=== PATIENT | male | born 1950 | race Caucasian/White ===

== ENCOUNTER → 2017-08-22 11:47 | Outpatient (CLI) | payer SELFPAY | PROVIDERS: Family Provider Family Medicine; PCP Family Medicine; Visit Provider Specialist | DX: Z53.9 Procedure and treatment not carried out, unspecified reason (principal) ==

== ENCOUNTER → 2017-09-02 09:23 | Outpatient (CLI) | payer MEDICAID, MEDICARE, SELFPAY ==
[2017-09-02 10:03] LABS: Pathologist Comment May follow
[2017-09-02 10:14] LABS: Absolute Lymphocyte Count 2.59 X10^3/ul (0.83-4.51); Absolute Neutrophil Count 2.8 X10^3/uL (2.0-7.7); Basophil# 0.05 X10^3/uL; Basophil% 0.8 % (0-1); Eosinophil# 0.55 X10^3/uL; Eosinophils% 8.4 % (0-5); Hematocrit 38.5 % (40-54); Lymphocyte # 2.59 X10^3/ul (4.0); Lymphocyte % 39.7 % (19-41); Mean Corp Hgb Conc 33.8 g/gl (32-36); Mean Corpuscular Volume 91.7 fL (80-94); Mean Platelet Vol. 12.1 fl (6.2-12.0); Monocyte# 0.49 X10^3/uL; Monocyte% 7.5 % (0-10); Neutrophil # 2.84 X10^3/uL (2.7-7.7); Neutrophil % 43.4 % (47-70); Platelet Count 223 K/mm3 (150-450); RBC Distribution Width CV 13.5 % (11.6-14.6); RBC Distribution Width SD 44.4 fl (35.1-43.9); White Blood Count 6.5 K/mm3 (4.4-11.0)
[2017-09-02 10:18] LABS: POSITIVE COUNT NO; POSITIVE DIFFERENTIAL NO; POSITIVE MORPHOLOGY NO
[2017-09-02 10:19] LABS: Erythrocyte Sedimentation Rate 5 mm/hr (0-20)
[2017-09-02 10:21] LABS: RBC /Synovial Fluid 0.089 10^6/uL (0); Synovial Fld Mononuclear WBC % 42.4 %; Synovial Fld Polynuclear WBC # 0.181 10^3/ul; Synovial Fld Polynuclear WBC % 57.6 %
[2017-09-02 10:32] LABS: CRP < 2.90 mg/L (0.0-3.0)
[2017-09-02 10:41] LABS: AUTO B FLUID DILUENT BKGD CT WBC <0.1 RBC <0.01 (W<.1,R<.01); Source- Body Fluid SYNOVIAL
[2017-09-02 10:43] LABS: Appearance /Synovial Fluid Cloudy (CLEAR); Color / Synovial Fluid Red (Pale Yellow)
[2017-09-02 11:49] LABS: Body Fluid QC Type(s) BF1Q,BF2Q
[2017-09-02 11:50] LABS: CRYSTALS, BODY FLUID Other, see comment
[2017-09-02 12:43] LABS: Lymph 34 %; Monocyte /Synovial Fluid 16 %; Neutrophil 45 % (0-25); Other Cell /Synovial Fluid 5 %
[2017-09-05 14:05] LABS: Pathologist Review Reviewed
== END ==
PROVIDERS: Family Provider Family Medicine; PCP Family Medicine; Visit Provider Specialist
DX: M25.562 Pain in left knee (principal); E11.9 Type 2 diabetes mellitus without complications; Z96.652 Presence of left artificial knee joint
CPT/HCPCS: 36415; 83036; 85025; 85652; 86140; 87070; 87075; 87102; 87205; 87206; 89050; 89051; 89060

== ENCOUNTER → 2017-12-20 16:48 | Outpatient (CLI) | payer MEDICARE, MEDICAID, SELFPAY ==
[2017-12-20 17:27] LABS: Absolute Lymphocyte Count 3.06 X10^3/ul (0.83-4.51); Absolute Neutrophil Count 3.4 X10^3/uL (2.0-7.7); Basophil# 0.04 X10^3/uL; Basophil% 0.5 % (0-1); Eosinophil# 0.43 X10^3/uL; Eosinophils% 5.8 % (0-5); Hematocrit 37.2 % (40-54); Hemoglobin 12.4 g/dl (13.0-16.5); Lymphocyte # 3.06 X10^3/ul (4.0); Lymphocyte % 41.1 % (19-41); Mean Corp Hgb Conc 33.3 g/gl (32-36); Mean Corpuscular Hgb 30.6 pg (27.0-32.0); Mean Corpuscular Volume 91.9 fL (80-94); Mean Platelet Vol. 12.1 fl (6.2-12.0); Monocyte# 0.49 X10^3/uL; Monocyte% 6.6 % (0-10); Neutrophil % 45.7 % (47-70); Platelet Count 214 K/mm3 (150-450); RBC Distribution Width CV 13.4 % (11.6-14.6); RBC Distribution Width SD 44.7 fl (35.1-43.9); Red Blood Count 4.05 M/mm3 (4.6-6.2); White Blood Count 7.4 K/mm3 (4.4-11.0)
[2017-12-20 17:31] LABS: POSITIVE COUNT NO; POSITIVE DIFFERENTIAL NO; POSITIVE MORPHOLOGY NO
[2017-12-20 18:15] LABS: Hemoglobin A1c 7.2 % (4.2-6.3)
== END ==
PROVIDERS: Family Provider Family Medicine; PCP Family Medicine; Visit Provider Specialist
DX: Z96.652 Presence of left artificial knee joint (principal)
CPT/HCPCS: 36415; 83036; 85025

== ENCOUNTER 2018-02-13 09:31 | Inpatient (IN) | payer MEDICARE, MEDICAID, SELFPAY ==
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
[2018-01-24 09:07] VITALS: BP 131/72; PULSE 63; RESP 16; TEMP 36.7; O2SAT 95; BMI 38.8
[2018-01-24 10:37] LABS: Absolute Lymphocyte Count 2.16 X10^3/ul (0.83-4.51); Absolute Neutrophil Count 2.6 X10^3/uL (2.0-7.7); Basophil# 0.04 X10^3/uL; Basophil% 0.7 % (0-1); Eosinophil# 0.38 X10^3/uL; Eosinophils% 6.9 % (0-5); Hematocrit 39.7 % (40-54); Lymphocyte # 2.16 X10^3/ul (4.0); Lymphocyte % 39.4 % (19-41); Mean Corp Hgb Conc 32.7 g/gl (32-36); Mean Corpuscular Hgb 30.2 pg (27.0-32.0); Mean Corpuscular Volume 92.1 fL (80-94); Mean Platelet Vol. 12.4 fl (6.2-12.0); Monocyte# 0.28 X10^3/uL; Monocyte% 5.1 % (0-10); Neutrophil # 2.61 X10^3/uL (2.7-7.7); Neutrophil % 47.7 % (47-70); Platelet Count 228 K/mm3 (150-450); RBC Distribution Width CV 13.5 % (11.6-14.6); RBC Distribution Width SD 44.6 fl (35.1-43.9); Red Blood Count 4.31 M/mm3 (4.6-6.2); White Blood Count 5.5 K/mm3 (4.4-11.0)
[2018-01-24 10:38] LABS: POSITIVE COUNT NO; POSITIVE DIFFERENTIAL NO; POSITIVE MORPHOLOGY NO
[2018-01-24 10:54] LABS: Hemoglobin A1c 6.9 % (4.2-6.3)
[2018-01-24 11:02] LABS: Anion Gap 7 (5-15); BUN 18 mg/dL (7-18); BUN/Creat Ratio 17.5 RATIO (10-20); Calcium,Total 9.1 mg/dL (8.5-10.1); Chloride 106 mmol/L (98-107); Creatinine, Serum 1.03 mg/dL (0.70-1.30); EST Glomerular Filtration Rate 76 mL/min (>60); Est Glom Filt Rate - Afr Amer 92 mL/min (>60); Estimated Creatinine Clearance 65.07 ml/min; Glucose 123 mg/dL (74-106); Potassium 4.4 mmol/L (3.5-5.1); Sodium Level 140 mmol/L (136-145)
--- NOTE | 2018-02-08 13:47 | CASEMGMT ---
Called placed to patient to discuss discharge needs after upcoming surgery, spoke with patient's . Patient plans to return home after surgery, family members will assist. Patient has not set up outpatient physical therapy yet, would prefer to have home health therapy. unsure of which provider patient would like for PT, informed that [facility] has home health with PT available. Patient has a walker but is is unsure if it's usable. There are grab bars in the shower, shower seat can be put in walk-in shower, toilet riser. There is a bedroom and bathroom on the 1st level of the home. There are no steps into the home. Informed that RN-CM will likely follow up with patient after surgery. Alissa García LPN Clinical Support
[2018-02-13] VITALS (11 sets, daily range): BP systolic 125–152; BP diastolic 55–80; PULSE 56–72; RESP 16–19; TEMP 36.3–37.2; O2SAT 93–98; BMI 38.8
[2018-02-13] MEDS: Acetaminophen 500 MG Tablet 1000 MG PO ×2 (10:28→21:54)
[2018-02-13 10:50] LABS: Bedside Glucose 148 mg/dL (70-110)
[2018-02-13] MEDS: Lactated Ringers 1,000 ML 999 ML IV (16:15)
--- NOTE | 2018-02-13 16:15 | RAD_ITS ---
STUDY: X-RAY - LEFT KNEE REASON FOR EXAM: Male, 67 years old. Postop knee replacement. TECHNIQUE: 2 view(s) of the knee. COMPARISON: None. Findings: There is a recent total knee arthroplasty. The femoral and tibial components appear in satisfactory position. There has been patellar resurfacing. There is a suprapatellar drain. The visualized femoral, tibial, and fibular shafts are unremarkable. RAD/Knee 1 or 2 Views IMPRESSION: Satisfactory appearance of a total knee arthroplasty. Electronically Signed: Nick Garcia MD at 19:07 EST , Service support ,
[2018-02-13 16:45] LABS: Bedside Glucose 272 mg/dL (70-110)
[2018-02-13] MEDS: Insulin Lispro 100 UNIT/ML INSULN.PEN SC ×2 (17:09→21:58)
--- NOTE | 2018-02-13 17:34 | OP.PCM_ITS ---
Report of Operation Date of Procedure: 02/13/18 Pre-Operative Diagnosis: Failed left total knee replacement, implant loosening aseptic Post-Operative Diagnosis: Failed left total knee replacement, implant loosening aseptic Surgery/Procedure Performed:: Revision left total knee replacement all femoral and tibial components Description of Surgical Findings:: Stable knee with good patella tracking. director industrial relations: Cesar Simpson Type of Anesthesia:: Spinal Anesthesiologist: Clarence Peters Special Medications: 2 g Ancef, 1 g TXA at incision, 1 g TXA closure, 10 mg Decadron, joint cocktail (5 mg Duramorph, 30 mL of 0.5% Ropivicaine, 1000 units of epinephrine, 30 mg of Toradol) Specimen's removed: 3 separate specimens were taken to microbiology Drains: Lateral Hemovac drain Estimated Blood Loss (mL): 125 mL Fluids Replaced: 2300 mL crystalloid Description of Procedure: 67 yo m history of L TKA presents with painful left total knee replacement. X- rays were consistent with aseptic loosening. Lab work was also consistent with aseptic loosening. Risks and benefits of the procedure were discussed with the patient including but not limited to blood loss, DVTs, PEs, neurovascular damage, infection, general risk of anesthesia including loss of life. Demonstrated understanding and was able to sign informed consent. On the date of procedure patient's L lower extremity was marked in the preoperative area. The patient was then taken back to the operating room where the patient was placed on the table in the supine position. All bony prominences were identified a well-padded. Anesthesia assumed control of the C-spine and airway and remained controlled throughout the remainder of the procedure. A tourniquet was placed on the operative thigh and the leg was prepped in a sterile fashion. The surgeon then scrubbed at this time .Upon reentering the room left lower extremity was draped in a standard orthopedic fashion. A timeout was then called and everyone agreed upon the side, the site, the procedure to be performed, patient's identity and antibiotics given. A midline skin incision was made and sharp dissection was taken down through skin subcutaneous tissue and fat. Appropriate flaps were elevated medially and laterally. His arthrotomy was identified and the standard medial parapatellar incision was made along with a quadriceps snip proximally and the patella was subluxed laterally. The standard deep MCL release was done. At this point an aggressive synovectomy commenced. Our attention was first turned towards the subpatellar pouch and all suspicious synovium and tissues were debrided. We then directed our attention towards medial lateral gutters were these tissues were aggressively debrided. Knee was then flexed up the polyethylene was removed. Once polyethylene was removed we did the remainder of the synovium in the medial and lateral gutters and along the lateral structures and MCL. We then debrided the posterior knee. Knee was flexed up and culture was taken from the femoral notch. And also there was a membrane beneath the tibial baseplate that was removed and sent for culture. He had completed our synovectomy and were happy with the joint. We then proceeded to the implant removal phase. The knee was flexed up and TPS saw and flexible osteotomes were used to break up the residual bone cement interface of the femoral component. This was done first lead and medially. After was done medially bone tamp was used to remove the implant from the end of the bone with minimal bone loss. Attention was then directed towards the tibia. Knee was first placed in e xtension and further releases were done in order to help deliver the tibia from the wound. Once the tibia was adequately delivered from the wound TPS saw and osteotome were used to break up the bone cement interface. Once this was done brought osteotomes were placed underneath the implant in a stacked fashion and the implant was removed from the wound. It should be noted that behind both implants were membranes consistent with aseptic loosening these were sent for culture as well. Should also be noted that both implants were loose upon removal. Also should be noted that when we opened up the arthrotomy the patella implant fell out of the wound literally. Knee was then placed in extension our attention was directed towards the patella. The patella was a thin wafer of bone this was also confirmed on the radiographs. At this point we do not feel would be appropriate to revise the patella and we elected to leave the patella and resurfaced. However patella did have a large lateral facet and on radiographs and upon direct visualization wrapped around the lateral femur. This facet was debrided along with a lateral release. Once this was done our attention was directed back towards the wound. We first reamed the femoral and tibial canals after removing cement. The femoral canal was reamed to 14 mm for 150 mm stem. Tibia was reamed to 15 mm and intramedullary reamer was left into place. We used the intramedullary cutting guide in order to make a cleanup cut on the top of the tibia. Cleanup cut was made perpendicular to the intramedullary reaming guide. Once this was done we then reamed for a size D cone. Once this was completed the trial cone was placed in the trial tibial baseplate was put in the appropriate rotation. Once the appropriate rotation was obtained the trial tibial baseplate was pinned into place and the keel punch was used to punch the keel. Once this was done the trial tibial implant was was impacted into place and our attention was directed towards the femur. Based on the previous implant size a size 6 trial tibial cutting guide was selected. Medial epicondyle was palpated and marked. The implant was impacted into place in order to set the joint line based on the trial cutting guide laser line. Trial cutting guide was then pinned into place and we trialed the polyethylene in place. This helped place the trial cutting guide in the appropriate rotation. With the knee flexed at 90 degrees we then pinned a second pin into the trial cutting guide. Once the knee was balanced using the trial cutting guide the distal cleanup cut and posterior cleanup cuts were made for 5 mm augments on all 4 areas. The trial femur was then assembled and impacted into place. With a trial femur in place and trial tibia in place the knee was well balanced with a 13 mm polyethylene. The patella tracked well at this time. Trial implants were removed and final implants were opened. 6 L of normal saline were irrigated throughout the wound and aqua Oswaldo was used to obtain hemostasis. Once the 6 L of low-pressure lavage were irrigated throughout the wound cement was mixed. Cement restrictor was placed in the tibia and the bone ends were dried appropriately. The tibial cone was impacted into place. Once the cement was ready the tibial canal was pressurized and the tibial component was impacted into place and excess cement was removed. Cement was then placed on the backside of the femoral component and the femoral component was impacted into place. Once the excess cement was removed and he was placed into extension. With the knee in extension cement was allowed to cure. After the cement cured tourniquet was let down and hemostasis was obtained. 2 g of TXA were lavaged to the wound for 1 minute. #2 FiberWire was used to repair the top corner of the arthrotomy as well as the quadriceps snip. The remainder of the arthrotomy was closed with #1 Vicryl. The remainder of the wound was closed in a layer rao fashion using #1 vicryl interrupted sutures for the arthrotomy, 2-0 interrupted Vicryl for the subcuticular layer and cait for final skin closure. A sterile compressive dressing was then placed. The patient was then awakened from anesthesia, transferred to the [facility] and transferred to the PACU for recovery. Post op plan Patient will be activity as tolerated with range of motion as tolerated. He is on Xarelto for DVT prophylaxis due to previous DVT. He will follow-up in the office in 2 weeks for a wound check. He will be on doxycycline for 2 weeks so we follow cultures. Grafts/Implants Used: [place] triathlon - Complications None - Admit VTE Documentation VTE Present on Admission: No VTE Mechan Device Prophylaxis: SCD's, Thigh High KARLA Hose VTE Pharm Prophylaxis ordered?: Yes
--- NOTE | 2018-02-13 18:28 | PCM.PROGNOTE ---
Subjective: Pt is a 67 year old male with Pmhx of arthritis, prior left total knee, hx of CAD prior CABG, dementia, prior DVT on xarelto, htn, depression, Dmt2, who underwent a left total knee revision today with Dr. Franklin today. Pt is resting comfortably in bed and appears very pleasant. Currently he has no pain. He had a spinal, left foot is still numb. He has no fevers or chills. He has no abdominal pain or nausea. He has not eaten yet. He is not SOB or coughing, and has no chest pain. - Physical Exam General: Alert, Oriented x3, Cooperative HEENT: Atraumatic, PERRLA, EOMI, Normocephalic Neck: Supple, No JVD, Negative Carotid Bruits Lungs: Clear to auscultation, Normal air movement Cardiovascular: Regular rate, No murmurs Abdomen: Bowel Sounds Present, Soft, Non Tender, Obese Extremities: No edema, Capillary Refill Less than 3 Seconds, - - numbness left foot Skin: No rashes, No breakdown Musculoskeletal: No Tenderness to Palpation of Joints or Extremities Neurological: Cranial nerves II-XII grossly intact Psych/Mental Status: Normal Affect, Appropriate, Alert and oriented to time, place, person, mood and affect Vital Signs Temp Pulse Resp BP Pulse Ox 97.8 F 60 16 143/73 H 93 02/13/18 17:47 02/13/18 17:47 02/13/18 17:47 02/13/18 17:47 02/13/18 17:47 Oxygen Delivery Method Room Air Weight: 248 lb Body Mass Index (BMI) 38.8 Finger Stick Blood Glucose 272 Intake and Output for Last 24 Hours 02/11/18 02/12/18 02/13/18 23:59 23:59 23:59 Intake Total 1800 / 1800 Output Total 150 / 150 Balance 1650 / 1650 Microbiology Past 72 Hours 02/13/18 14:17 Gram Stain - Final Tissue - Knee 02/13/18 14:17 Gram Stain - Final Tissue - Knee 02/13/18 14:17 Gram Stain - Final Tissue - Knee POC Glucose 02/13/18 02/13/18 16:29 10:23 POC Glucose 272 H 148 H Medical Necessity - Tobacco Use Smoking Status: Never smoker Assessment/Plan 1. Left total knee revision post op day #0 - appears to be doing well. Continue care as per ortho. Plan to restart xarelto when ok per surgery. Plan is for Doxy x 2 week. Received perioperative clinda. Cultures taken. Afebrile, no leukocytosis. Not clear why pt is on pletal, possibly hx of PAD - increases risk for bleeding. 2. CAD with prior CABG - last cath 2017 reportedly stable. Continue karl, aspirin, imdur, toprol 3. DMt2 - continue current insulin regiment. A1C 6.9 - fair control. 4. Hx DVT - restart xarelto likely tomorrow 5. Dementia - aricept, seroquel. 7. Depression - seroquel, wellbutrin, prozac. 8. HTN - mildly elevated. Continue current meds. DVT ppx: per ortho Thank you for the opportunity to participate in the care of this patient. This patient was seen by Phi Brunner PA-C under the supervision of Dr. Quezada.
[2018-02-13] MEDS: Lactated Ringers 1,000 ML 125 ML IV (18:38)
[2018-02-13] MEDS: Glucerna Shake 120 ML LIQUID PO (18:46)
[2018-02-13] MEDS: metFORMIN HCl 1,000 MG Tablet 1000 MG PO (18:48)
[2018-02-13] MEDS: Insulin Human 75/25 Kwickpen 30 UNIT SC (18:50)
[2018-02-13 18:55] LABS: Bedside Glucose 307 mg/dL (70-110)
[2018-02-13] MEDS: oxyCODONE 5 MG Tablet PO (20:20)
[2018-02-13 21:45] LABS: Bedside Glucose 303 mg/dL (70-110)
[2018-02-13] MEDS: Donepezil HCl 5 MG Tablet PO (21:52)
[2018-02-13] MEDS: Metoprolol(XL)Succ 25 MG Tablet 12.5 MG PO (21:53)
[2018-02-13] MEDS: FLUoxetine 20 MG Capsule PO (21:53)
[2018-02-13] MEDS: Doxycycline 100 MG CAPSULE PO (21:53)
[2018-02-13] MEDS: Cilostazol 50 MG Tablet PO (21:53)
[2018-02-13] MEDS: Senna/Docusate Sodium 1 Tablet 2 TABLET PO (21:53)
[2018-02-13] MEDS: Gabapentin 300 MG Capsule PO (21:53)
[2018-02-14 01:09] VITALS: BP 118/58; PULSE 61; RESP 16; TEMP 36.7; O2SAT 95
[2018-02-14] MEDS: oxyCODONE 5 MG Tablet PO ×3 (01:10→21:18)
[2018-02-14 02:23] VITALS: BP 114/55; PULSE 64; RESP 16; TEMP 36.6; O2SAT 94
[2018-02-14] MEDS: Acetaminophen 500 MG Tablet 1000 MG PO ×3 (05:33→21:20)
[2018-02-14] MEDS: Gabapentin 300 MG Capsule PO ×3 (05:33→21:20)
[2018-02-14] MEDS: FLUoxetine 20 MG Capsule PO ×3 (05:34→21:20)
[2018-02-14] MEDS: Rivaroxaban 10 MG Tablet PO (05:34)
[2018-02-14] MEDS: Insulin Lispro 100 UNIT/ML INSULN.PEN SC ×2 (06:30→11:33)
[2018-02-14 06:36] LABS: Bedside Glucose 173 mg/dL (70-110)
[2018-02-14 06:40] LABS: Hematocrit 32.6 % (40-54); Hemoglobin 10.6 g/dl (13.0-16.5); Mean Corp Hgb Conc 32.5 g/gl (32-36); Mean Corpuscular Hgb 30.3 pg (27.0-32.0); Mean Corpuscular Volume 93.1 fL (80-94); Mean Platelet Vol. 12.4 fl (6.2-12.0); Platelet Count 176 K/mm3 (150-450); RBC Distribution Width CV 13.4 % (11.6-14.6); RBC Distribution Width SD 44.1 fl (35.1-43.9); White Blood Count 10.7 K/mm3 (4.4-11.0)
[2018-02-14 06:42] LABS: Scan Indicated on CBC? Y/N NO
[2018-02-14 06:58] LABS: Anion Gap 10 (5-15); BUN 23 mg/dL (7-18); BUN/Creat Ratio 20.7 RATIO (10-20); Chloride 102 mmol/L (98-107); Creatinine, Serum 1.11 mg/dL (0.70-1.30); EST Glomerular Filtration Rate 70 mL/min (>60); Est Glom Filt Rate - Afr Amer 85 mL/min (>60); Estimated Creatinine Clearance 60.38 ml/min; Glucose 180 mg/dL (74-106); Potassium 4.3 mmol/L (3.5-5.1); Sodium Level 138 mmol/L (136-145)
--- NOTE | 2018-02-14 07:18 | PCM.PN.ORT ---
Subjective: The patient was sitting in bed upon examination. Patient denies any chest pain, shortness of breath, dizziness, lightheadedness, nausea or vomiting, or calf pain. Pain is controlled on medications. No adverse overnight events. Patient had aseptic loosening from a previous left total knee replacement. Patient is doing well this morning. Patient does have a Hemovac drain in the left knee with 450 mL output since surgery. Objective: Vital signs stable and afebrile. Patient is able to plantarflex and dorsiflex actively. Sensation is intact to light touch to saphenous, sural, superficial and deep peroneal, and tibial distribution. Dressing is clean dry and intact. Hemovac drain in place: Since surgery 450 mL have been drained Negative Homans bilaterally, negative signs and symptoms of DVT. - Physical Exam General: Alert, Oriented x3, Cooperative, No apparent distress Vital Signs Temp Pulse Resp BP Pulse Ox 98 F 64 16 114/55 L 94 02/14/18 02:23 02/14/18 02:23 02/14/18 02:23 02/14/18 02:23 02/14/18 02:23 Oxygen Delivery Method Room Air Weight: 112.491 kg Body Mass Index (BMI) 38.8 Finger Stick Blood Glucose 272 Intake and Output for Last 24 Hours 02/12/18 02/13/18 02/14/18 23:59 23:59 23:59 Intake Total 2757 / 2757 623 / 623 Output Total 875 / 875 150 / 150 Balance 1882 / 1882 473 / 473 Microbiology Past 72 Hours 02/13/18 14:17 Gram Stain - Final Tissue - Knee 02/13/18 14:17 Gram Stain - Final Tissue - Knee 02/13/18 14:17 Gram Stain - Final Tissue - Knee Laboratory Tests Past 24 Hrs 02/14/18 02/14/18 06:14 06:14 WBC 10.7 RBC 3.50 L Hgb 10.6 L Hct 32.6 L MCV 93.1 MCH 30.3 MCHC 32.5 RDW 13.4 RDW Differential 44.1 H Plt Count 176 MPV 12.4 H Sodium 138 Potassium 4.3 Chloride 102 Carbon Dioxide 26.0 Anion Gap 10 BUN 23 H Creatinine 1.11 Estim Creat Clear Calc 60.38 Est GFR (MDRD) Af Amer 85 Est GFR (MDRD) Non-Af 70 BUN/Creatinine Ratio 20.7 H Glucose 180 H Calcium 8.0 L POC Glucose 02/14/18 02/13/18 02/13/18 06:28 21:35 18:44 POC Glucose 173 H 303 H 307 H 02/13/18 02/13/18 16:29 10:23 POC Glucose 272 H 148 H Medical Necessity - Tobacco Use Smoking Status: Never smoker Assessment/Plan 1. S/P revision left total knee arthroplasty femoral and tibial components POD #1 2. Continue Pain Medications: Tylenol and oxycodone 3. DVT Prophylaxis: Xarelto 4. PT/OT: Weightbearing as tolerated with range of motion as tolerated 5. H & H: 10.6/32.6, asymptomatic 6. Encouraged Incentive Spirometry 7. Continue doxycycline while following cultures: Currently on doxycycline. Cultures are pending 8. Continue postoperative medical management per medicine 9. Continue with Hemovac drain: Since surgery there is been 450 mL output, continue monitoring 24-hour output. 10. Disposition: Patient wishes to go home when medically stable and ready for discharge.
[2018-02-14 08:12] VITALS: BP 140/69; PULSE 65; RESP 16; TEMP 36.7; O2SAT 97
[2018-02-14] MEDS: metFORMIN HCl 1,000 MG Tablet 1000 MG PO ×2 (08:26→16:42)
[2018-02-14] MEDS: Multivitamins,Therapeutic Tablet 1 TABLET PO (08:26)
[2018-02-14] MEDS: Aspirin E.C. 81 MG Tablet PO (08:26)
[2018-02-14] MEDS: Glucerna Shake 120 ML LIQUID PO ×2 (08:26→16:42)
[2018-02-14] MEDS: Insulin Human 75/25 Kwickpen 26 UNIT SC (08:27)
[2018-02-14] MEDS: Isosorbide Mononitrate 30 MG Tablet 90 MG PO (11:26)
[2018-02-14] MEDS: Doxycycline 100 MG CAPSULE PO ×2 (11:26→21:19)
[2018-02-14] MEDS: Cilostazol 50 MG Tablet PO ×2 (11:27→21:20)
[2018-02-14] MEDS: Famotidine 20 MG Tablet PO (11:27)
[2018-02-14] MEDS: Senna/Docusate Sodium 1 Tablet 2 TABLET PO ×2 (11:27→21:20)
[2018-02-14] MEDS: QUEtiapine 25 MG Tablet PO (11:28)
[2018-02-14] MEDS: Lisinopril 20 MG Tablet PO (11:28)
[2018-02-14] MEDS: buPROPion (XL) 300 MG TABLET.XL PO (11:28)
--- NOTE | 2018-02-14 11:28 | CASEMGMT ---
JULIO APONTE INITIAL ASSESSMENT D/C PLAN: Home w/C PT/OT. Face to Face with patient for initial transition planning/care coordination assessment. JULIO APONTE introduced self and role at [facility]. Care providers, pharmacy, and demographics verified. PCP: Derek Dinero Pharmacy: [facility] Retail on day of discharge only. Insurance: MCR A & B, Medicaid Prescription Benefit: Yes Living Will/HPOA: Does not have either. and pt state they are interested in further information and with talking with [facility] to fill forms out. AD information sheets given to pt. Referral made to [facility]. [facility]NO[facility]: Living Arrangements: Lives with . States there are no steps to enter the home. 1st floor set up. Transportation: Pt is [place] and does not drive. Hire drivers. DME: Has walk-in shower, shower chair, toilet riser, cane, grab bars, and building tech. states pt does need a walker and denies preference of DME company. HHC: States would like [facility] for PT/OT. State no preference of agency. Order placed. Referral made with [facility] HHC. Pt wishes to return home w/HHC PT/OT. CM to follow for any further discharge planning needs that may arise. Jamar LEVIN RN, CM
[2018-02-14] MEDS: buPROPion (SR) 100 MG TABLET.SA PO (11:36)
[2018-02-14 11:45] LABS: Bedside Glucose 188 mg/dL (70-110)
[2018-02-14 14:11] VITALS: BP 110/59; PULSE 59; RESP 18; TEMP 36.7; O2SAT 97
[2018-02-14 16:46] LABS: Bedside Glucose 124 mg/dL (70-110)
--- NOTE | 2018-02-14 19:18 | PCM.PROGNOTE ---
Subjective: Patient seen and examined today, his was in the room and I talked with her briefly about his medical care. The current plan is for the patient to go home following his hospitalization here. Patient's blood sugar has been under adequate control at this time. Hemoglobin this morning was 10.6. - Physical Exam General: Alert, Cooperative, No apparent distress, Well developed HEENT: Atraumatic, PERRLA, EOMI, Normocephalic Oral: Moist Mucosa Neck: Supple, No Nuchal Rigidity, Trachea Midline, Thyroid Normal Size and Texture Lungs: Clear to auscultation, Normal air movement, No rhonchi, No wheeze, No rales Cardiovascular: Regular rate, Regular Rhythm, Normal S1, Normal S2, No murmurs, No Ectopic Activity, PMI Normal, No rub noted, No Gallop Abdomen: Bowel Sounds Present, Soft, Non Tender, Non-Distended Skin: No rashes Neurological: Cranial nerves II-XII grossly intact, Neuro grossly intact, Sensory exam intact to light touch and pain Psych/Mental Status: Normal Affect, Appropriate Vital Signs Temp Pulse Resp BP Pulse Ox 98.1 F 59 L 18 110/59 L 97 02/14/18 14:11 02/14/18 14:11 02/14/18 14:11 02/14/18 14:11 02/14/18 14:11 Oxygen Delivery Method Room Air Weight: 112.491 kg Body Mass Index (BMI) 38.8 Finger Stick Blood Glucose 272 Intake and Output for Last 24 Hours 02/12/18 02/13/18 02/14/18 23:59 23:59 23:59 Intake Total 2757 / 2757 623 / 623 Output Total 875 / 875 275 / 275 Balance 1882 / 1882 348 / 348 Microbiology Past 72 Hours 02/13/18 14:17 Gram Stain - Final Tissue - Knee Wound Culture - Preliminary No growth-Final to follow 02/13/18 14:17 Gram Stain - Final Tissue - Knee Wound Culture - Preliminary No growth-Final to follow 02/13/18 14:17 Gram Stain - Final Tissue - Knee Wound Culture - Preliminary No growth-Final to follow Laboratory Tests Past 24 Hrs 02/14/18 02/14/18 06:14 06:14 WBC 10.7 RBC 3.50 L Hgb 10.6 L Hct 32.6 L MCV 93.1 MCH 30.3 MCHC 32.5 RDW 13.4 RDW Differential 44.1 H Plt Count 176 MPV 12.4 H Sodium 138 Potassium 4.3 Chloride 102 Carbon Dioxide 26.0 Anion Gap 10 BUN 23 H Creatinine 1.11 Estim Creat Clear Calc 60.38 Est GFR (MDRD) Af Amer 85 Est GFR (MDRD) Non-Af 70 BUN/Creatinine Ratio 20.7 H Glucose 180 H Calcium 8.0 L POC Glucose 02/14/18 02/14/18 02/14/18 16:36 11:32 06:28 POC Glucose 124 H 188 H 173 H 02/13/18 21:35 POC Glucose 303 H Medical Necessity - Tobacco Use Smoking Status: Never smoker Assessment/Plan #1 coronary artery disease-stable at this time #2 type 2 diabetes-continue present treatment, blood sugars appear to be under adequate control #3 anxiety and depression-patient will continue on his present medication #4 osteoarthritis #5 dementia #6 hypertension #7 hyperlipidemia #8 status post left total knee revision-postop day #1-PT and OT continues #9 anemia-as an expected consequence of left total knee revision-no treatment at this time needed Code Visit Inpatient E&M: 49514 Subs Hosp L2
--- NOTE | 2018-02-14 19:26 | PN_ITS ---
Subjective: Patient seen and examined today, his was in the room and I talked with her briefly about his medical care. The current plan is for the patient to go home following his hospitalization here. Patient's blood sugar has been under adequate control at this time. Hemoglobin this morning was 10.6. - Physical Exam General: Alert, Cooperative, No apparent distress, Well developed HEENT: Atraumatic, PERRLA, EOMI, Normocephalic Oral: Moist Mucosa Neck: Supple, No Nuchal Rigidity, Trachea Midline, Thyroid Normal Size and Texture Lungs: Clear to auscultation, Normal air movement, No rhonchi, No wheeze, No r ales Cardiovascular: Regular rate, Regular Rhythm, Normal S1, Normal S2, No murmurs, No Ectopic Activity, PMI Normal, No rub noted, No Gallop Abdomen: Bowel Sounds Present, Soft, Non Tender, Non-Distended Skin: No rashes Neurological: Cranial nerves II-XII grossly intact, Neuro grossly intact, Senso ry exam intact to light touch and pain Psych/Mental Status: Normal Affect, Appropriate Vital Signs Temp Pulse Resp BP Pulse Ox 98.1 F 59 L 18 110/59 L 97 02/14/18 14:11 02/14/18 14:11 02/14/18 14:11 02/14/18 14:11 02/14/18 14:11 Oxygen Delivery Method Room Air Weight: 112.491 kg Body Mass Index (BMI) 38.8 Finger Stick Blood Glucose 272 Intake and Output for Last 24 Hours 02/12/18 02/13/18 02/14/18 23:59 23:59 23:59 Intake Total 2757 / 2757 623 / 623 Output Total 875 / 875 275 / 275 Balance 1882 / 1882 348 / 348 Microbiology Past 72 Hours 02/13/18 14:17 Gram Stain - Final Tissue - Knee Wound Culture - Preliminary No growth-Final to follow 02/13/18 14:17 Gram Stain - Final Tissue - Knee Wound Culture - Preliminary No growth-Final to follow 02/13/18 14:17 Gram Stain - Final Tissue - Knee Wound Culture - Preliminary No growth-Final to follow Laboratory Tests Past 24 Hrs 02/14/18 02/14/18 06:14 06:14 WBC 10.7 RBC 3.50 L Hgb 10.6 L Hct 32.6 L MCV 93.1 MCH 30.3 MCHC 32.5 RDW 13.4 RDW Differential 44.1 H Plt Count 176 MPV 12.4 H Sodium 138 Potassium 4.3 Chloride 102 Carbon Dioxide 26.0 Anion Gap 10 BUN 23 H Creatinine 1.11 Estim Creat Clear Calc 60.38 Est GFR (MDRD) Af Amer 85 Est GFR (MDRD) Non-Af 70 BUN/Creatinine Ratio 20.7 H Glucose 180 H Calcium 8.0 L POC Glucose 02/14/18 02/14/18 02/14/18 16:36 11:32 06:28 POC Glucose 124 H 188 H 173 H 02/13/18 21:35 POC Glucose 303 H Medical Necessity - Tobacco Use Smoking Status: Never smoker Assessment/Plan #1 coronary artery disease-stable at this time #2 type 2 diabetes-continue present treatment, blood sugars appear to be under adequate control #3 anxiety and depression-patient will continue on his present medication #4 osteoarthritis #5 dementia #6 hypertension #7 hyperlipidemia #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
[2018-02-14 20:12] VITALS: BP 115/54; PULSE 54; RESP 16; TEMP 36.9; O2SAT 98
[2018-02-14 20:21] LABS: Bedside Glucose 139 mg/dL (70-110)
[2018-02-14] MEDS: Donepezil HCl 5 MG Tablet PO (21:19)
[2018-02-14 21:23] VITALS: PULSE 54
[2018-02-14 21:36] LABS: Bedside Glucose 127 mg/dL (70-110)
[2018-02-15] VITALS (9 sets, daily range): BP systolic 125–215; BP diastolic 65–91; PULSE 66–84; RESP 16–18; TEMP 37–38.6; O2SAT 93–96
[2018-02-15] MEDS: oxyCODONE 5 MG Tablet PO ×2 (01:17→06:24)
[2018-02-15] MEDS: Insulin Lispro 100 UNIT/ML INSULN.PEN SC ×4 (06:23→21:26)
[2018-02-15] MEDS: Acetaminophen 500 MG Tablet 1000 MG PO ×3 (06:24→21:24)
[2018-02-15] MEDS: Rivaroxaban 10 MG Tablet PO (06:24)
[2018-02-15] MEDS: Gabapentin 300 MG Capsule PO (06:25)
[2018-02-15] MEDS: FLUoxetine 20 MG Capsule PO ×3 (06:25→21:23)
[2018-02-15 06:35] LABS: Bedside Glucose 205 mg/dL (70-110)
[2018-02-15 07:13] LABS: Hematocrit 31.3 % (40-54); Hemoglobin 10.3 g/dl (13.0-16.5); Mean Corp Hgb Conc 32.9 g/gl (32-36); Mean Corpuscular Hgb 30.5 pg (27.0-32.0); Mean Corpuscular Volume 92.6 fL (80-94); Mean Platelet Vol. 12.5 fl (6.2-12.0); Platelet Count 152 K/mm3 (150-450); RBC Distribution Width CV 13.3 % (11.6-14.6); RBC Distribution Width SD 44.3 fl (35.1-43.9); Red Blood Count 3.38 M/mm3 (4.6-6.2); White Blood Count 10.8 K/mm3 (4.4-11.0)
[2018-02-15 07:14] LABS: Scan Indicated on CBC? Y/N NO
[2018-02-15] MEDS: Insulin Human 75/25 Kwickpen 26 UNIT SC (08:40)
--- NOTE | 2018-02-15 08:59 | PCM.PN.HOSP ---
Patient Problems: Active and Suspected Problems Status post revision of total replacement of left knee (Acute) Acute blood loss anemia (Acute) Subjective: Felling well. notes that patient a little bit confused. States yesterday he had a rash and was itching. Vitals/I&O's: Vital Signs Temp Pulse Resp BP Pulse Ox 37.2 C 70 16 159/91 H 96 02/15/18 02:04 02/15/18 02:04 02/15/18 02:04 02/15/18 02:04 02/15/18 02:04 Oxygen Delivery Method Room Air Weight: 112.491 kg Body Mass Index (BMI) 38.8 Finger Stick Blood Glucose 272 Intake and Output for Last 24 Hours 02/13/18 02/14/18 02/15/18 23:59 23:59 23:59 Intake Total 2757 / 2757 623 / 623 1040 / 1040 Output Total 875 / 875 275 / 275 175 / 175 Balance 1882 / 1882 348 / 348 865 / 865 General: Alert, Cooperative, No apparent distress HEENT: Atraumatic, Normocephalic Oral: Moist Mucosa, No Gingival or Mucosal Lesions/ Ulcerations Neck: No Nodes, Thyroid Normal Size and Texture Lungs: Clear to auscultation, Normal air movement, No rhonchi, No wheeze Cardiovascular: Regular rate, Regular Rhythm, Normal S1, Normal S2, No murmurs Abdomen: Bowel Sounds Present, Soft, Non Tender, Non-Distended, Passing Flatus Skin: No rashes, No breakdown Psych/Mental Status: Normal Affect, Appropriate Microbiology Past 72 Hours 02/13/18 14:17 Tissue - Knee Gram Stain - Final 02/13/18 14:17 Tissue - Knee Wound Culture - Preliminary No growth-Final to follow 02/13/18 14:17 Tissue - Knee Anaerobic Culture - Preliminary No growth in 48 hours. 02/13/18 14:17 Tissue - Knee Gram Stain - Final 02/13/18 14:17 Tissue - Knee Wound Culture - Preliminary No growth-Final to follow 02/13/18 14:17 Tissue - Knee Anaerobic Culture - Preliminary No growth in 48 hours. 02/13/18 14:17 Tissue - Knee Gram Stain - Final 02/13/18 14:17 Tissue - Knee Wound Culture - Preliminary No growth-Final to follow 02/13/18 14:17 Tissue - Knee Anaerobic Culture - Preliminary No growth in 48 hours. Laboratory Results 02/14/18 11:32: POC Glucose 188 H 02/14/18 16:36: POC Glucose 124 H 02/14/18 20:18: POC Glucose 139 H 02/14/18 21:16: POC Glucose 127 H 02/15/18 06:13: POC Glucose 205 H 02/15/18 06:48: WBC 10.8, RBC 3.38 L, Hgb 10.3 L, Hct 31.3 L, MCV 92.6, MCH 30.5, MCHC 32.9, RDW 13.3, RDW Differential 44.3 H, Plt Count 152, MPV 12.5 H Current Medications Acetaminophen (Tylenol) 1,000 mg PO Q8 [facility] Last Admin: 02/15/18 06:24 Dose: 1,000 mg Aspirin (Ecotrin) 81 mg PO DAILYCM [facility] Last Admin: 02/14/18 08:26 Dose: 81 mg Bupropion HCl (Wellbutrin Sr (100mg Tablets)) 100 mg PO LUNCH [facility] Last Admin: 02/14/18 11:36 Dose: 100 mg Bupropion HCl (Wellbutrin Xl) 300 mg PO DAILY [facility] Last Admin: 02/14/18 11:28 Dose: 300 mg Cilostazol (Pletal) 50 mg PO BID [facility] Last Admin: 02/14/18 21:20 Dose: 50 mg Donepezil HCl (Aricept) 5 mg PO QHS [facility] Last Admin: 02/14/18 21:19 Dose: 5 mg Doxycycline Monohydrate (Doxycycline) 100 mg PO BID [facility] Stop: 02/20/18 22:01 Last Admin: 02/14/18 21:19 Dose: 100 mg Famotidine (Pepcid) 20 mg PO DAILY [facility] Last Admin: 02/14/18 11:27 Dose: 20 mg Fluoxetine HCl (Prozac) 20 mg PO TID [facility] Last Admin: 02/15/18 06:25 Dose: 20 mg Gabapentin (Neurontin) 300 mg PO TID [facility] Last Admin: 02/15/18 06:25 Dose: 300 mg Insulin Human Lispro (Humalog Kwikpen (Bkc)) 0 unit SC ACHS [facility]; Protocol Last Admin: 02/15/18 06:23 Dose: 4 units Isosorbide Mononitrate (Imdur) 90 mg PO DAILY [facility] Last Admin: 02/14/18 11:26 Dose: 90 mg Ketorolac Tromethamine (Toradol) 15 mg IV Q6H PRN PRN PRN Reason: MILD-MOD PAIN (1-5/10) Lisinopril (Zestril) 20 mg PO DAILY [facility] Last Admin: 02/14/18 11:28 Dose: 20 mg Met[facility] ([facility] Last Admin: 02/14/18 16:42 Dose: 1,000 mg Metoprolol Succinate (Toprol Xl (Beta Lobo)) 12.5 mg PO QHS [facility] Last Admin: 02/14/18 21:23 Dose: Not Given Morphine Sulfate () 2 - 4 mg IV Q2H PRN PRN PRN Reason: SEVERE PAIN (6-10/10) Multivitamins (Multivitamin) 1 tablet PO DAILY@0800 [facility] Last Admin: 02/14/18 08:26 Dose: 1 tablet Nutritional Formula (Lactose Free) (Glucerna Shake) 120 ml PO TIDCM [facility] Last Admin: 02/14/18 16:42 Dose: 120 ml Ondansetron HCl (Zofran) 4 mg IV Q8H PRN PRN PRN Reason: NAUSEA Oxycodone HCl (Oxyir) 5 - 10 mg PO Q4H PRN PRN PRN Reason: MOD-SEVERE PAIN (4-10/10) Last Admin: 02/15/18 06:24 Dose: 10 mg Promethazine HCl (Phenergan) 12.5 mg IM Q6H PRN PRN; Protocol PRN Reason: NAUSEA/VOMITING Quetiapine Fumarate (Seroquel) 25 mg PO DAILY [facility] Last Admin: 02/14/18 11:28 Dose: 25 mg Rivaroxaban (Xarelto) 10 mg PO DAILY@0600 [facility] Last Admin: 02/15/18 06:24 Dose: 10 mg Senna/Docusate Sodium (Senokot-S, Glenis-Colace) 2 tablet PO BID [facility] Last Admin: 02/14/18 21:20 Dose: 2 tablet Sodium Chloride () 5 - 30 ml IV UD PRN PRN Reason: SALINE FLUSH Medical Necessity - Tobacco Use Smoking Status: Never smoker Assessment/Plan All Active Problems 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 acute blood loss anemia Hg 13 to 10 stable no need for transfusion 2. DM2 uncontrolled on metformin and SSI 70/30 ordered but not given resume 70/30 on discharge 3. S/p L TKA revision per orthopaedics 4. DVT proph: Xarelto 5. Disposition medically stable for discharge. Code Visit Inpatient E&M: 90952 Subs Hosp L2
--- NOTE | 2018-02-15 09:08 | PN_ITS ---
Patient Problems: Active and Suspected Problems Status post revision of total replacement of left knee (Acute) Acute blood loss anemia (Acute) Subjective: Felling well. notes that patient a little bit confused. States yesterday he had a rash and was itching. Vitals/I&O's: Vital Signs Temp Pulse Resp BP Pulse Ox 37.2 C 70 16 159/91 H 96 02/15/18 02:04 02/15/18 02:04 02/15/18 02:04 02/15/18 02:04 02/15/18 02:04 Oxygen Delivery Method Room Air Weight: 112.491 kg Body Mass Index (BMI) 38.8 Finger Stick Blood Glucose 272 Intake and Output for Last 24 Hours 02/13/18 02/14/18 02/15/18 23:59 23:59 23:59 Intake Total 2757 / 2757 623 / 623 1040 / 1040 Output Total 875 / 875 275 / 275 175 / 175 Balance 1882 / 1882 348 / 348 865 / 865 General: Alert, Cooperative, No apparent distress HEENT: Atraumatic, Normocephalic Oral: Moist Mucosa, No Gingival or Mucosal Lesions/ Ulcerations Neck: No Nodes, Thyroid Normal Size and Texture Lungs: Clear to auscultation, Normal air movement, No rhonchi, No wheeze Cardiovascular: Regular rate, Regular Rhythm, Normal S1, Normal S2, No murmurs Abdomen: Bowel Sounds Present, Soft, Non Tender, Non-Distended, Passing Flatus Skin: No rashes, No breakdown Psych/Mental Status: Normal Affect, Appropriate Microbiology Past 72 Hours 02/13/18 14:17 Tissue - Knee Gram Stain - Final 02/13/18 14:17 Tissue - Knee Wound Culture - Preliminary No growth-Final to follow 02/13/18 14:17 Tissue - Knee Anaerobic Culture - Preliminary No growth in 48 hours. 02/13/18 14:17 Tissue - Knee Gram Stain - Final 02/13/18 14:17 Tissue - Knee Wound Culture - Preliminary No growth-Final to follow 02/13/18 14:17 Tissue - Knee Anaerobic Culture - Preliminary No growth in 48 hours. 02/13/18 14:17 Tissue - Knee Gram Stain - Final 02/13/18 14:17 Tissue - Knee Wound Culture - Preliminary No growth-Final to follow 02/13/18 14:17 Tissue - Knee Anaerobic Culture - Preliminary No growth in 48 hours. Laboratory Results 02/14/18 11:32: POC Glucose 188 H 02/14/18 16:36: POC Glucose 124 H 02/14/18 20:18: POC Glucose 139 H 02/14/18 21:16: POC Glucose 127 H 02/15/18 06:13: POC Glucose 205 H 02/15/18 06:48: WBC 10.8, RBC 3.38 L, Hgb 10.3 L, Hct 31.3 L, MCV 92.6, MCH 30.5, MCHC 32.9, RDW 13.3, RDW Differential 44.3 H, Plt Count 152, MPV 12.5 H Current Medications Acetaminophen (Tylenol) 1,000 mg PO Q8 [facility] Last Admin: 02/15/18 06:24 Dose: 1,000 mg Aspirin (Ecotrin) 81 mg PO DAILYCM [facility] Last Admin: 02/14/18 08:26 Dose: 81 mg Bupropion HCl (Wellbutrin Sr (100mg Tablets)) 100 mg PO LUNCH [facility] Last Admin: 02/14/18 11:36 Dose: 100 mg Bupropion HCl (Wellbutrin Xl) 300 mg PO DAILY [facility] Last Admin: 02/14/18 11:28 Dose: 300 mg Cilostazol (Pletal) 50 mg PO BID [facility] Last Admin: 02/14/18 21:20 Dose: 50 mg Donepezil HCl (Aricept) 5 mg PO QHS [facility] Last Admin: 02/14/18 21:19 Dose: 5 mg Doxycycline Monohydrate (Doxycycline) 100 mg PO BID [facility] Stop: 02/20/18 22:01 Last Admin: 02/14/18 21:19 Dose: 100 mg Famotidine (Pepcid) 20 mg PO DAILY [facility] Last Admin: 02/14/18 11:27 Dose: 20 mg Fluoxetine HCl (Prozac) 20 mg PO TID [facility] Last Admin: 02/15/18 06:25 Dose: 20 mg Gabapentin (Neurontin) 300 mg PO TID [facility] Last Admin: 02/15/18 06:25 Dose: 300 mg Insulin Human Lispro (Humalog Kwikpen (Bkc)) 0 unit SC ACHS [facility]; Protocol Last Admin: 02/15/18 06:23 Dose: 4 units Isosorbide Mononitrate (Imdur) 90 mg PO DAILY [facility] Last Admin: 02/14/18 11:26 Dose: 90 mg Ketorolac Tromethamine (Toradol) 15 mg IV Q6H PRN PRN PRN Reason: MILD-MOD PAIN (1-5/10) Lisinopril (Zestril) 20 mg PO DAILY [facility] Last Admin: 02/14/18 11:28 Dose: 20 mg Metformin [facility] (Glucophage) [facility] Last Admin: 02/14/18 16:42 Dose: 1,000 mg Metoprolol Succinate (Toprol Xl (Beta Lobo)) 12.5 mg PO QHS [facility] Last Admin: 02/14/18 21:23 Dose: Not Given Morphine Sulfate () 2 - 4 mg IV Q2H PRN PRN PRN Reason: SEVERE PAIN (6-10/10) Multivitamins (Multivitamin) 1 tablet PO DAILY@0800 [facility] Last Admin: 02/14/18 08:26 Dose: 1 tablet Nutritional Formula (Lactose Free) (Glucerna Shake) 120 ml PO TIDCM [facility] Last Admin: 02/14/18 16:42 Dose: 120 ml Ondansetron HCl (Zofran) 4 mg IV Q8H PRN PRN PRN Reason: NAUSEA Oxycodone HCl (Oxyir) 5 - 10 mg PO Q4H PRN PRN PRN Reason: MOD-SEVERE PAIN (4-10/10) Last Admin: 02/15/18 06:24 Dose: 10 mg Promethazine HCl (Phenergan) 12.5 mg IM Q6H PRN PRN; Protocol PRN Reason: NAUSEA/VOMITING Quetiapine Fumarate (Seroquel) 25 mg PO DAILY [facility] Last Admin: 02/14/18 11:28 Dose: 25 mg Rivaroxaban (Xarelto) 10 mg PO DAILY@0600 [facility] Last Admin: 02/15/18 06:24 Dose: 10 mg Senna/Docusate Sodium (Senokot-S, Glenis-Colace) 2 tablet PO BID [facility] Last Admin: 02/14/18 21:20 Dose: 2 tablet Sodium Chloride () 5 - 30 ml IV UD PRN PRN Reason: SALINE FLUSH Medical Necessity - Tobacco Use Smoking Status: Never smoker Assessment/Plan All Active Problems 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 acute blood loss anemia * Hg 13 to 10 * stable * no need for transfusion 2. DM2 * uncontrolled * on metformin and SSI * 70/30 ordered but not given * resume 70/30 on discharge 3. S/p L TKA revision * per orthopaedics 4. DVT proph: * Xarelto 5. Disposition * medically stable for discharge. Code Visit Inpatient E&M: 52892 Subs Hosp L2
--- NOTE | 2018-02-15 09:34 | PCM.PN.ORT ---
Patient Problems: Active and Suspected Problems Status post revision of total replacement of left knee (Acute) Acute blood loss anemia (Acute) Subjective: The patient was sitting in bed upon examination. Patient denies any chest pain, shortness of breath, dizziness, lightheadedness, nausea or vomiting, or calf pain. Patient is still having pain in his left knee. Patient's was in the room upon evaluation. Patient's states he was confused this morning after his OxyIR dose. She said he had a similar reaction from his primary total knee replacement. At that time they switched over to tramadol and patient did well with this medication. No adverse overnight events. Patient has had 175 mL drainage from the Hemovac drain over the last 24 hours. Objective: Vital signs stable and afebrile. Patient is able to plantarflex and dorsiflex actively. Sensation is intact to light touch to saphenous, sural, superficial and deep peroneal, and tibial distribution. Dressing is clean dry and intact. Hemovac drain in place: Since surgery 175 mL have been drained, plan will be for removal of drain tomorrow. Negative Homans bilaterally, negative signs and symptoms of DVT. - Physical Exam General: Alert, Oriented x3, Cooperative, No apparent distress Vital Signs Temp Pulse Resp BP Pulse Ox 98.9 F 70 16 159/91 H 96 02/15/18 02:04 02/15/18 02:04 02/15/18 02:04 02/15/18 02:04 02/15/18 02:04 Oxygen Delivery Method Room Air Weight: 112.491 kg Body Mass Index (BMI) 38.8 Finger Stick Blood Glucose 272 Intake and Output for Last 24 Hours 02/13/18 02/14/18 02/15/18 23:59 23:59 23:59 Intake Total 2757 / 2757 623 / 623 1040 / 1040 Output Total 875 / 875 275 / 275 175 / 175 Balance 1882 / 1882 348 / 348 865 / 865 Microbiology Past 72 Hours 02/13/18 14:17 Gram Stain - Final Tissue - Knee Wound Culture - Preliminary No growth-Final to follow Anaerobic Culture - Preliminary No growth in 48 hours. 02/13/18 14:17 Gram Stain - Final Tissue - Knee Wound Culture - Preliminary No growth-Final to follow Anaerobic Culture - Preliminary No growth in 48 hours. 02/13/18 14:17 Gram Stain - Final Tissue - Knee Wound Culture - Preliminary No growth-Final to follow Anaerobic Culture - Preliminary No growth in 48 hours. Laboratory Tests Past 24 Hrs 02/15/18 06:48 WBC 10.8 RBC 3.38 L Hgb 10.3 L Hct 31.3 L MCV 92.6 MCH 30.5 MCHC 32.9 RDW 13.3 RDW Differential 44.3 H Plt Count 152 MPV 12.5 H POC Glucose 02/15/18 02/14/18 02/14/18 06:13 21:16 20:18 POC Glucose 205 H 127 H 139 H 02/14/18 02/14/18 16:36 11:32 POC Glucose 124 H 188 H Medical Necessity - Tobacco Use Smoking Status: Never smoker Assessment/Plan All Active Problems 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 S/P revision left total knee arthroplasty femoral and tibial components POD #2 2. Continue Pain Medications: Tylenol and tramadol, oxycodone was stopped due to confusion after dose this a.m. 3. DVT Prophylaxis: Xarelto 4. PT/OT: Weightbearing as tolerated with range of motion as tolerated 5. H & H: 10.3/31.3, asymptomatic 6. Encouraged Incentive Spirometry 7. Continue doxycycline while following cultures: Currently on doxycycline. Cultures are currently with no growth 8. Continue postoperative medical management per medicine 9. Continue with Hemovac drain: Since surgery there is been 175 mL output, continue monitoring 24-hour output. Plan will be for removal of Hemovac drain tomorrow 10. Disposition: Patient wishes to go home when medically stable and ready for discharge. Plan will be for possible discharge home tomorrow
[2018-02-15] MEDS: Aspirin E.C. 81 MG Tablet PO (09:35)
[2018-02-15] MEDS: Doxycycline 100 MG CAPSULE PO ×2 (09:36→21:25)
[2018-02-15] MEDS: Cilostazol 50 MG Tablet PO ×2 (09:36→21:25)
[2018-02-15] MEDS: Multivitamins,Therapeutic Tablet 1 TABLET PO (09:36)
[2018-02-15] MEDS: Senna/Docusate Sodium 1 Tablet 2 TABLET PO ×2 (09:36→21:24)
[2018-02-15] MEDS: metFORMIN HCl 1,000 MG Tablet 1000 MG PO ×2 (09:36→17:29)
[2018-02-15] MEDS: buPROPion (XL) 300 MG TABLET.XL PO (09:36)
[2018-02-15] MEDS: Lisinopril 20 MG Tablet PO (09:37)
[2018-02-15] MEDS: Famotidine 20 MG Tablet PO (09:37)
[2018-02-15] MEDS: Isosorbide Mononitrate 30 MG Tablet 90 MG PO (09:37)
[2018-02-15] MEDS: QUEtiapine 25 MG Tablet PO (09:38)
[2018-02-15] MEDS: Glucerna Shake 120 ML LIQUID PO ×2 (11:00→16:51)
[2018-02-15] MEDS: traMADol 50 MG Tablet PO (11:04)
[2018-02-15] MEDS: buPROPion (SR) 100 MG TABLET.SA PO (11:06)
[2018-02-15 11:16] LABS: Bedside Glucose 168 mg/dL (70-110)
--- NOTE | 2018-02-15 11:30 | CASEMGMT ---
Social Work Note SW attempted to meet with pt to complete advanced directives. Pt soundly sleeping. Pt's present in room states pt unable to complete documents at this time due to sleeping. SW provided pt's with documents and informed her that once pt awakes, if he wishes to complete documents to inform staff and this worker will return to complete documents. Pt's state understanding. Vilma Lanza SPECTROGRAPHER, WIRE RIGGER
--- NOTE | 2018-02-15 14:11 | CT_ITS ---
STUDY: CT BRAIN WITHOUT CONTRAST REASON FOR EXAM: Male, 67 years old. Confusion. RADIATION DOSAGE (If Supplied By Facility): CTDIvol = ( 44.99 ) mGy, DLP = ( 745.49 ) mGycm TECHNIQUE: Transaxial CT imaging of the brain was performed without administration of intravenous contrast material. Individualized dose optimization techniques were used for this CT. COMPARISON: None. FINDINGS: Normal soft tissue structures. Normal calvarium. There is mild cerebral atrophy with widening of the extra-axial spaces and ventricular dilatation. Normal white matter tracts of the cerebral hemispheres. Normal basal ganglia and thalami. Normal brainstem. Normal cerebellum. There is no intracranial hemorrhage. There are no findings of an acute ischemic infarction. Focal mucosal thickening along the lateral wall of the left sphenoid sinus. CT/Brain/Head without Contrast IMPRESSION: Chronic involutional changes of the brain. Electronically Signed: Randy Wade MD at 14:49 EST Tel [phone], Service support ,
--- NOTE | 2018-02-15 14:11 | RAD_ITS ---
STUDY: X-RAY CHEST REASON FOR EXAM: Male, 67 years old. Fever. Recent knee replacement. TECHNIQUE: Single AP portable view of the chest. COMPARISON: None. FINDINGS: Moderate lung volumes. There is diffuse hazy density and prominence of the bronchovascular markings in both lungs, most consistent with congestive failure and pulmonary edema.. Mild atelectasis in the lung bases. Sternal cerclage wires and vascular clips are present from a prior sternotomy and coronary artery bypass graft procedure (CABG). Mild cardiomegaly. Normal mediastinum and sami. Normal visualized pulmonary arteries. Normal visualized aortic arch and descending thoracic aorta. The visualized bones and joints show degenerative changes.. There is no demonstrated abnormality of the visualized soft tissue structures of the upper abdomen. RAD/Chest 1 View (Portable) IMPRESSION: Incomplete expansion of the lungs. Mild congestion and interstitial edema suggested. Electronically Signed: Nick Garcia MD at 18:37 EST , Service support ,
[2018-02-15] MEDS: Clonidine HCl 0.1 MG, Clonidine HCl 0.2 MG 0.3 MG PO (15:27)
[2018-02-15] MEDS: Ceftriaxone 1 GM/50 ML BAG IV (15:27)
[2018-02-15 17:00] LABS: Bedside Glucose 165 mg/dL (70-110)
[2018-02-15 17:05] LABS: Bacteria 0 SEEN /hpf (None Seen); Mucous, Urine 0 SEEN /hpf (<or=2+); Red Blood Cells-Urine 0 SEEN /hpf (0-5); Squamous Epithelial Cells - UA 0 SEEN /hpf (0-5); White Blood Cells 0 SEEN /hpf (0-5)
[2018-02-15 17:17] LABS: Glucose, Dipstick Normal (Normal); Ketone-Dipstick 5 mg/dl (Negative); Leukocyte Esterase-Dipstick Negative /ul (Negative); Nitrite-Dipstick Negative (Negative); Occult Blood-Urine Negative /ul (Negative); Protein-Dipstick Negative (Negative); Urine Bilirubin Dipstick Negative (Negative); Urine Urobilinogen Normal (Normal)
[2018-02-15 17:19] LABS: Color, Urine Yellow (Yellow); Urine Clarity Clear (Clear)
[2018-02-15] MEDS: Ipratropium/Albuterol Sulfate 3 ML AMPUL.NEB INHALATION (20:30)
[2018-02-15] MEDS: 0.9% NaCl Peripheral Flush Adult/Peds IV (21:23)
[2018-02-15] MEDS: Metoprolol(XL)Succ 25 MG Tablet 12.5 MG PO (21:25)
[2018-02-15] MEDS: Donepezil HCl 5 MG Tablet PO (21:26)
[2018-02-15 22:35] LABS: Bedside Glucose 228 mg/dL (70-110)
--- NOTE | 2018-02-15 23:26 | NURSING ---
family wishes for pain meds to be added to allergy list d/t confusion.
[2018-02-16] VITALS (10 sets, daily range): BP systolic 86–200; BP diastolic 46–120; PULSE 63–92; RESP 18; TEMP 36.7–37.3; O2SAT 94–96
[2018-02-16] MEDS: Acetaminophen 500 MG Tablet 1000 MG PO ×3 (05:04→21:03)
[2018-02-16] MEDS: Rivaroxaban 10 MG Tablet PO (05:05)
[2018-02-16] MEDS: FLUoxetine 20 MG Capsule PO ×3 (05:05→19:52)
--- NOTE | 2018-02-16 06:46 | PCM.PN.ORT ---
Patient Problems: Active and Suspected Problems Status post revision of total replacement of left knee (Acute) Acute blood loss anemia (Acute) Subjective: The patient was sitting in bedside chair upon examination. Patient denies any chest pain, shortness of breath, dizziness, lightheadedness, nausea or vomiting, or calf pain. Pain is controlled on medications. No adverse overnight events. Patient began feeling ill yesterday with running a fever and with high blood pressure. He also was confused when family was present. Patient had workup with CT of the brain, UA, and chest x-ray. Suspected pneumococcal pneumonia. Patient has been placed on antibiotics. Patient does feel better today. Family members are present during examination. Patient does report pain in his left knee. Objective: Vital signs stable and afebrile. Patient is able to plantarflex and dorsiflex actively. Sensation is intact to light touch to saphenous, sural, superficial and deep peroneal, and tibial distribution. Dressing is clean dry and intact. Negative Homans bilaterally, negative signs and symptoms of DVT. - Physical Exam General: Alert, Oriented x3, Cooperative, No apparent distress Vital Signs Temp Pulse Resp BP Pulse Ox 99.1 F 63 18 146/69 H 94 02/16/18 03:00 02/16/18 03:00 02/16/18 03:00 02/16/18 03:00 02/16/18 03:00 Oxygen Delivery Method Room Air Weight: 112.491 kg Body Mass Index (BMI) 38.8 Finger Stick Blood Glucose 272 Intake and Output for Last 24 Hours 02/14/18 02/15/18 02/16/18 23:59 23:59 23:59 Intake Total 623 / 623 1640 / 1640 800 / 800 Output Total 275 / 275 375 / 375 Balance 348 / 348 1265 / 1265 800 / 800 Microbiology Past 72 Hours 02/15/18 16:55 Streptococcus pneumoniae Antigen (M - Final Urine Catheter - Catheter 02/15/18 16:55 Legionella Antigen - Final Urine Catheter - Catheter 02/13/18 14:17 Gram Stain - Final Tissue - Knee Wound Culture - Preliminary No growth-Final to follow Anaerobic Culture - Preliminary No growth in 48 hours. 02/13/18 14:17 Gram Stain - Final Tissue - Knee Wound Culture - Preliminary No growth-Final to follow Anaerobic Culture - Preliminary No growth in 48 hours. 02/13/18 14:17 Gram Stain - Final Tissue - Knee Wound Culture - Preliminary No growth-Final to follow Anaerobic Culture - Preliminary No growth in 48 hours. Laboratory Tests Past 24 Hrs 02/15/18 02/15/18 06:48 16:55 WBC 10.8 RBC 3.38 L Hgb 10.3 L Hct 31.3 L MCV 92.6 MCH 30.5 MCHC 32.9 RDW 13.3 RDW Differential 44.3 H Plt Count 152 MPV 12.5 H Urine Color Yellow Urine Clarity Clear Urine pH 8.0 Ur Specific [place] 1.010 Urine Protein Negative Urine Glucose (UA) Normal Urine Ketones 5 H Urine Occult Blood Negative Urine Nitrite Negative Urine Bilirubin Negative Urine Urobilinogen Normal Ur Leukocyte Esterase Negative Urine RBC 0 SEEN Urine WBC 0 SEEN Ur Squamous Epith Cells 0 SEEN Urine Bacteria 0 SEEN Urine Mucus 0 SEEN POC Glucose 02/15/18 02/15/18 02/15/18 21:19 16:41 11:02 POC Glucose 228 H 165 H 168 H Medical Necessity - Tobacco Use Smoking Status: Never smoker Assessment/Plan All Active Problems 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 S/P revision left total knee arthroplasty femoral and tibial components POD #3 2. Continue Pain Medications: Tylenol and tramadol, oxycodone was stopped due to confusion after dose this a.m. 3. DVT Prophylaxis: Xarelto 4. PT/OT: Weightbearing as tolerated with range of motion as tolerated 5. H & H: Yesterday 10.3/31.3, asymptomatic. No current labs at this time. 6. Encouraged Incentive Spirometry 7. Continue doxycycline while following cultures: Currently on doxycycline. Cultures are currently with no growth 8. Continue postoperative medical management per medicine: There is suspected encephalopathy and pneumococcal pneumonia and patient is currently being worked up. Patient has been started on antibiotics. 9. Continue with Hemovac drain: Drain was removed yesterday by nursing. Drain was not working appropriately. 10. Disposition: Plan will be for discharge when medically stable.
[2018-02-16] MEDS: Ipratropium/Albuterol Sulfate 3 ML AMPUL.NEB INHALATION (07:21)
[2018-02-16 07:38] LABS: Absolute Lymphocyte Count 1.43 X10^3/ul (0.83-4.51); Absolute Neutrophil Count 7.8 X10^3/uL (2.0-7.7); Basophil# 0.01 X10^3/uL; Basophil% 0.1 % (0-1); Eosinophil# 0.02 X10^3/uL; Eosinophils% 0.2 % (0-5); Hematocrit 29.8 % (40-54); Hemoglobin 9.8 g/dl (13.0-16.5); Lymphocyte # 1.43 X10^3/ul (4.0); Mean Corp Hgb Conc 32.9 g/gl (32-36); Mean Corpuscular Hgb 30.5 pg (27.0-32.0); Mean Corpuscular Volume 92.8 fL (80-94); Monocyte# 0.88 X10^3/uL; Monocyte% 8.6 % (0-10); Neutrophil # 7.83 X10^3/uL (2.7-7.7); Neutrophil % 76.9 % (47-70); Platelet Count 154 K/mm3 (150-450); RBC Distribution Width CV 13.3 % (11.6-14.6); RBC Distribution Width SD 43.9 fl (35.1-43.9); Red Blood Count 3.21 M/mm3 (4.6-6.2); White Blood Count 10.2 K/mm3 (4.4-11.0)
[2018-02-16 07:45] LABS: POSITIVE COUNT NO; POSITIVE DIFFERENTIAL NO; POSITIVE MORPHOLOGY NO
[2018-02-16 07:47] LABS: Anion Gap 11 (5-15); BUN 13 mg/dL (7-18); BUN/Creat Ratio 13.8 RATIO (10-20); Calcium,Total 8.5 mg/dL (8.5-10.1); Chloride 99 mmol/L (98-107); Creatinine, Serum 0.94 mg/dL (0.70-1.30); EST Glomerular Filtration Rate 84 mL/min (>60); Est Glom Filt Rate - Afr Amer 102 mL/min (>60); Glucose 221 mg/dL (74-106); Sodium Level 136 mmol/L (136-145)
[2018-02-16 08:20] LABS: Bedside Glucose 217 mg/dL (70-110)
[2018-02-16] MEDS: Insulin Lispro 100 UNIT/ML INSULN.PEN SC ×3 (08:20→21:37)
[2018-02-16] MEDS: Insulin Human 75/25 Kwickpen 26 UNIT SC (08:21)
[2018-02-16] MEDS: Multivitamins,Therapeutic Tablet 1 TABLET PO (08:22)
[2018-02-16] MEDS: Aspirin E.C. 81 MG Tablet PO (08:22)
[2018-02-16] MEDS: metFORMIN HCl 1,000 MG Tablet 1000 MG PO ×2 (08:22→16:22)
--- NOTE | 2018-02-16 09:53 | PCM.PN.HOSP ---
Patient Problems: Active and Suspected Problems Status post revision of total replacement of left knee (Acute) Acute blood loss anemia (Acute) Subjective: Feels good. No further confusion. No further fever. Vitals/I&O's: Vital Signs Temp Pulse Resp BP Pulse Ox 37.1 C 69 18 152/69 H 95 02/16/18 09:00 02/16/18 09:00 02/16/18 09:00 02/16/18 09:00 02/16/18 09:00 Oxygen Delivery Method Room Air Weight: 112.491 kg Body Mass Index (BMI) 38.8 Finger Stick Blood Glucose 272 Intake and Output for Last 24 Hours 02/14/18 02/15/18 02/16/18 23:59 23:59 23:59 Intake Total 623 / 623 1640 / 1640 800 / 800 Output Total 275 / 275 375 / 375 Balance 348 / 348 1265 / 1265 800 / 800 General: Alert, Cooperative, No apparent distress HEENT: Atraumatic, Normocephalic Oral: Moist Mucosa, No Gingival or Mucosal Lesions/ Ulcerations Neck: No Nodes, Thyroid Normal Size and Texture Lungs: Clear to auscultation, Normal air movement, No rhonchi, No wheeze Cardiovascular: Regular rate, Regular Rhythm, Normal S1, Normal S2, No murmurs Abdomen: Bowel Sounds Present, Soft, Non Tender, Non-Distended, Obese Psych/Mental Status: Normal Affect, Appropriate Microbiology Past 72 Hours 02/13/18 14:17 Tissue - Knee Gram Stain - Final 02/13/18 14:17 Tissue - Knee Wound Culture - Final No growth aerobically. 02/13/18 14:17 Tissue - Knee Anaerobic Culture - Preliminary No growth in 48 hours. 02/13/18 14:17 Tissue - Knee Gram Stain - Final 02/13/18 14:17 Tissue - Knee Wound Culture - Final No growth aerobically. 02/13/18 14:17 Tissue - Knee Anaerobic Culture - Preliminary No growth in 48 hours. 02/13/18 14:17 Tissue - Knee Gram Stain - Final 02/13/18 14:17 Tissue - Knee Wound Culture - Final No growth aerobically. 02/13/18 14:17 Tissue - Knee Anaerobic Culture - Preliminary No growth in 48 hours. 02/15/18 16:55 Urine Catheter - Catheter Streptococcus pneumoniae Antigen (M - Final 02/15/18 16:55 Urine Catheter - Catheter Legionella Antigen - Final Laboratory Results 02/15/18 11:02: POC Glucose 168 H 02/15/18 16:41: POC Glucose 165 H 02/15/18 16:55: Urine Color Yellow, Urine Clarity Clear, Urine pH 8.0, Ur Specific [place] 1.010, Urine Protein Negative, Urine Glucose (UA) Normal, Urine Ketones 5 H, Urine Occult Blood Negative, Urine Nitrite Negative, Urine Bilirubin Negative, Urine Urobilinogen Normal, Ur Leukocyte Esterase Negative, Urine RBC 0 SEEN, Urine WBC 0 SEEN, Ur Squamous Epith Cells 0 SEEN, Urine Bacteria 0 SEEN, Urine Mucus 0 SEEN 02/15/18 21:19: POC Glucose 228 H 02/16/18 07:01: WBC 10.2, RBC 3.21 L, Hgb 9.8 L, Hct 29.8 L, MCV 92.8, MCH 30.5, MCHC 32.9, RDW 13.3, RDW Differential 43.9, Plt Count 154, MPV 13.0 H, Immature Gran % (Auto) 0.200, Neut % (Auto) 76.9 H, Lymph % (Auto) 14.0 L, [place] % (Auto) 8.6, Eos % (Auto) 0.2, Baso % (Auto) 0.1, Absolute Neuts (auto) 7.8 H, Absolute Lymphs (auto) 1.43, Total Counted Not Reportable 02/16/18 07:01: Sodium 136, Potassium 4.0, Chloride 99, Carbon Dioxide 26.0, Anion Gap 11, BUN 13, Creatinine 0.94, Estim Creat Clear Calc 71.30, Est GFR (MDRD) Af Amer 102, Est GFR (MDRD) Non-Af 84, BUN/Creatinine Ratio 13.8, Glucose 221 H, Calcium 8.5 02/16/18 08:07: POC Glucose 217 H Current Medications Acetaminophen (Tylenol) 1,000 mg PO Q8 [facility] Last Admin: 02/16/18 05:04 Dose: 1,000 mg Albuterol Sulfate (Ventolin Aerosols) 2.5 mg INHALATION Q2H PRN PRN PRN Reason: SHORTNESS OF BREATH Albuterol/Ipratropium (Duoneb) 3 ml INHALATION Q6HWA.RT [facility] Last Admin: 02/16/18 07:21 Dose: 3 [facility] Last Admin: 02/16/18 08:22 Dose: 81 mg Bupropion HCl (Wellbutrin Sr (100mg Tablets)) 100 mg PO LUNCH [facility] Last Admin: 02/15/18 11:06 Dose: 100 mg Bupropion HCl (Wellbutrin Xl) 300 mg PO DAILY [facility] Last Admin: 02/15/18 09:36 Dose: 300 mg Cilostazol (Pletal) 50 mg PO BID [facility] Last Admin: 02/15/18 21:25 Dose: 50 mg Clonidine 0.1 mg/ Clonidine 0. (2 mg) 0.3 mg PO Q6H PRN PRN Reason: SBP > 180 Last Admin: 02/15/18 15:27 Dose: 0.3 mg Donepezil HCl (Aricept) 5 mg PO QHS [facility] Last Admin: 02/15/18 21:26 Dose: 5 mg Doxycycline Monohydrate (Doxycycline) 100 mg PO BID [facility] Stop: 02/20/18 22:01 Last Admin: 02/15/18 21:25 Dose: 100 mg Famotidine (Pepcid) 20 mg PO DAILY [facility] Last Admin: 02/15/18 09:37 Dose: 20 mg Fluoxetine HCl (Prozac) 20 mg PO TID [facility] Last Admin: 02/16/18 05:05 Dose: 20 mg Azithromycin 500 mg/ Dextrose 255 mls @ 250 mls/hr IV Q24 [facility] Ceftriaxone Sodium (Rocephin) 1 gm in 50 mls @ 100 mls/hr IV Q24 [facility] Insulin Human Lispro (Humalog Kwikpen (Bkc)) 0 unit [facility]; Protocol Last Admin: 02/16/18 08:20 Dose: 4 units Isosorbide Mononitrate (Imdur) 90 mg PO DAILY [facility] Last Admin: 02/15/18 09:37 Dose: 90 mg Ketorolac Tromethamine (Toradol) 15 mg IV Q6H PRN PRN PRN Reason: MILD-MOD PAIN (1-5/10) Lisinopril (Zestril) 20 mg PO DAILY [facility] Last Admin: 02/15/18 09:37 Dose: 20 mg Metformin [facility] (Glucophage) [facility] Last Admin: 02/16/18 08:22 Dose: 1,000 mg Metoprolol Succinate (Toprol Xl (Beta Lobo)) 12.5 mg PO QHS [facility] Last Admin: 02/15/18 21:25 Dose: 12.5 mg Morphine Sulfate () 2 - 4 mg IV Q2H PRN PRN PRN Reason: SEVERE PAIN (6-1010) Multivitamins (Multivitamin) 1 tablet PO DAILY@0800 [facility] Last Admin: 02/16/18 08:22 Dose: 1 tablet Nutritional Formula (Lactose Free) (Glucerna Shake) 120 ml PO TIDCM [facility] Last Admin: 02/16/18 08:22 Dose: Not Given Ondansetron HCl (Zofran) 4 mg IV Q8H PRN PRN PRN Reason: NAUSEA Promethazine HCl (Phenergan) 12.5 mg IM Q6H PRN PRN; Protocol PRN Reason: NAUSEA/VOMITING Rivaroxaban (Xarelto) 10 mg PO DAILY@0600 [facility] Last Admin: 02/16/18 05:05 Dose: 10 mg Senna/Docusate Sodium (Senokot-S, [place]-Colace) 2 tablet PO BID [facility] Last Admin: 02/15/18 21:24 Dose: 2 tablet Sodium Chloride () 5 - 30 ml IV UD PRN PRN Reason: SALINE FLUSH Last Admin: 02/15/18 21:23 Dose: 10 ml Medical Necessity - Tobacco Use Smoking Status: Never smoker Assessment/Plan All Active Problems 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 Pneumonia, suspected pneumococcal strep and leg ag negative change to Levaquin 750 for 6 more days Rx sent to pharmacy 2. toxic encephalopathy resolved likely due to narcotics can resume Seroquel and neurontin 3. acute blood loss anemia stable Hg 13 to 9.8 stable no need for transfusion 4. DM2 uncontrolled on metformin and SSI 70/30 ordered but not given resume 70/30 on discharge per his , his MBS are well controlled at home. 5. S/p L TKA revision per orthopaedics 6. DVT proph: Xarelto 7. Disposition Ok to discharge from medical standpoint Code Visit Inpatient E&M: 27071 Subs Hosp L2
--- NOTE | 2018-02-16 10:00 | PN_ITS ---
Patient Problems: Active and Suspected Problems Status post revision of total replacement of left knee (Acute) Acute blood loss anemia (Acute) Subjective: Feels good. No further confusion. No further fever. Vitals/I&O's: Vital Signs Temp Pulse Resp BP Pulse Ox 37.1 C 69 18 152/69 H 95 02/16/18 09:00 02/16/18 09:00 02/16/18 09:00 02/16/18 09:00 02/16/18 09:00 Oxygen Delivery Method Room Air Weight: 112.491 kg Body Mass Index (BMI) 38.8 Finger Stick Blood Glucose 272 Intake and Output for Last 24 Hours 02/14/18 02/15/18 02/16/18 23:59 23:59 23:59 Intake Total 623 / 623 1640 / 1640 800 / 800 Output Total 275 / 275 375 / 375 Balance 348 / 348 1265 / 1265 800 / 800 General: Alert, Cooperative, No apparent distress HEENT: Atraumatic, Normocephalic Oral: Moist Mucosa, No Gingival or Mucosal Lesions/ Ulcerations Neck: No Nodes, Thyroid Normal Size and Texture Lungs: Clear to auscultation, Normal air movement, No rhonchi, No wheeze Cardiovascular: Regular rate, Regular Rhythm, Normal S1, Normal S2, No murmurs Abdomen: Bowel Sounds Present, Soft, Non Tender, Non-Distended, Obese Psych/Mental Status: Normal Affect, Appropriate Microbiology Past 72 Hours 02/13/18 14:17 Tissue - Knee Gram Stain - Final 02/13/18 14:17 Tissue - Knee Wound Culture - Final No growth aerobically. 02/13/18 14:17 Tissue - Knee Anaerobic Culture - Preliminary No growth in 48 hours. 02/13/18 14:17 Tissue - Knee Gram Stain - Final 02/13/18 14:17 Tissue - Knee Wound Culture - Final No growth aerobically. 02/13/18 14:17 Tissue - Knee Anaerobic Culture - Preliminary No growth in 48 hours. 02/13/18 14:17 Tissue - Knee Gram Stain - Final 02/13/18 14:17 Tissue - Knee Wound Culture - Final No growth aerobically. 02/13/18 14:17 Tissue - Knee Anaerobic Culture - Preliminary No growth in 48 hours. 02/15/18 16:55 Urine Catheter - Catheter Streptococcus pneumoniae Antigen (M - Final 02/15/18 16:55 Urine Catheter - Catheter Legionella Antigen - Final Laboratory Results 02/15/18 11:02: POC Glucose 168 H 02/15/18 16:41: POC Glucose 165 H 02/15/18 16:55: Urine Color Yellow, Urine Clarity Clear, Urine pH 8.0, Ur Specific [place] 1.010, Urine Protein Negative, Urine Glucose (UA) Normal, Urine Ketones 5 H, Urine Occult Blood Negative, Urine Nitrite Negative, Urine Bilirubin Negative, Urine Urobilinogen Normal, Ur Leukocyte Esterase Negative, Urine RBC 0 SEEN, Urine WBC 0 SEEN, Ur Squamous Epith Cells 0 SEEN, Urine Bacteria 0 SEEN, Urine Mucus 0 SEEN 02/15/18 21:19: POC Glucose 228 H 02/16/18 07:01: WBC 10.2, RBC 3.21 L, Hgb 9.8 L, Hct 29.8 L, MCV 92.8, MCH 30.5, MCHC 32.9, RDW 13.3, RDW Differential 43.9, Plt Count 154, MPV 13.0 H, Immature Gran % (Auto) 0.200, Neut % (Auto) 76.9 H, Lymph % (Auto) 14.0 L, [place] % (Auto) 8.6, Eos % (Auto) 0.2, Baso % (Auto) 0.1, Absolute Neuts (auto) 7.8 H, Absolute Lymphs (auto) 1.43, Total Counted Not Reportable 02/16/18 07:01: Sodium 136, Potassium 4.0, Chloride 99, Carbon Dioxide 26.0, Anion Gap 11, BUN 13, Creatinine 0.94, Estim Creat Clear Calc 71.30, Est GFR (MDRD) Af Amer 102, Est GFR (MDRD) Non-Af 84, BUN/Creatinine Ratio 13.8, Glucose 221 H, Calcium 8.5 02/16/18 08:07: POC Glucose 217 H Current Medications Acetaminophen (Tylenol) 1,000 mg PO Q8 [facility] Last Admin: 02/16/18 05:04 Dose: 1,000 mg Albuterol Sulfate (Ventolin Aerosols) 2.5 mg INHALATION Q2H PRN PRN PRN Reason: SHORTNESS OF BREATH Albuterol/Ipratropium (Duoneb) 3 ml INHALATION Q6HWA.RT [facility] Last Admin: 02/16/18 07:21 Dose: 3 ml [facility]) [facility] Last Admin: 02/16/18 08:22 Dose: 81 mg Bupropion HCl (Wellbutrin Sr (100mg Tablets)) 100 mg PO LUNCH [facility] Last Admin: 02/15/18 11:06 Dose: 100 mg Bupropion HCl (Wellbutrin Xl) 300 mg PO DAILY [facility] Last Admin: 02/15/18 09:36 Dose: 300 mg Cilostazol (Pletal) 50 mg PO BID [facility] Last Admin: 02/15/18 21:25 Dose: 50 mg Clonidine 0.1 mg/ Clonidine 0. (2 mg) 0.3 mg PO Q6H PRN PRN Reason: SBP > 180 Last Admin: 02/15/18 15:27 Dose: 0.3 mg Donepezil HCl (Aricept) 5 mg PO QHS [facility] Last Admin: 02/15/18 21:26 Dose: 5 mg Doxycycline Monohydrate (Doxycycline) 100 mg PO BID [facility] Stop: 02/20/18 22:01 Last Admin: 02/15/18 21:25 Dose: 100 mg Famotidine (Pepcid) 20 mg PO DAILY [facility] Last Admin: 02/15/18 09:37 Dose: 20 mg Fluoxetine HCl (Prozac) 20 mg PO TID [facility] Last Admin: 02/16/18 05:05 Dose: 20 mg Azithromycin 500 mg/ Dextrose 255 mls @ 250 mls/hr IV Q24 [facility] Ceftriaxone Sodium (Rocephin) 1 gm in 50 mls @ 100 mls/hr IV Q24 [facility] Insulin Human Lispro (Humalog Kwikpen (Bkc)) 0 unit [facility]; Protocol Last Admin: 02/16/18 08:20 Dose: 4 units Isosorbide Mononitrate (Imdur) 90 mg PO DAILY [facility] Last Admin: 02/15/18 09:37 Dose: 90 mg Ketorolac Tromethamine (Toradol) 15 mg IV Q6H PRN PRN PRN Reason: MILD-MOD PAIN (1-5/10) Lisinopril (Zestril) 20 mg PO DAILY [facility] Last Admin: 02/15/18 09:37 Dose: 20 mg Metformin [facility] (Glucophage) [facility] Last Admin: 02/16/18 08:22 Dose: 1,000 mg Metoprolol Succinate (Toprol Xl (Beta Lobo)) 12.5 mg PO QHS [facility] Last Admin: 02/15/18 21:25 Dose: 12.5 mg Morphine Sulfate () 2 - 4 mg IV Q2H PRN PRN PRN Reason: SEVERE PAIN (6-01/17) Multivitamins (Multivitamin) 1 tablet PO DAILY@0800 [facility] Last Admin: 02/16/18 08:22 Dose: 1 tablet Nutritional Formula (Lactose Free) (Glucerna Shake) 120 ml PO TIDCM [facility] Last Admin: 02/16/18 08:22 Dose: Not Given Ondansetron HCl (Zofran) 4 mg IV Q8H PRN PRN PRN Reason: NAUSEA Promethazine HCl (Phenergan) 12.5 mg IM Q6H PRN PRN; Protocol PRN Reason: NAUSEA/VOMITING Rivaroxaban (Xarelto) 10 mg PO DAILY@0600 [facility] Last Admin: 02/16/18 05:05 Dose: 10 mg Senna/Docusate Sodium (Senokot-S, [place]-Colace) 2 tablet PO BID [facility] Last Admin: 02/15/18 21:24 Dose: 2 tablet Sodium Chloride () 5 - 30 ml IV UD PRN PRN Reason: SALINE FLUSH Last Admin: 02/15/18 21:23 Dose: 10 ml Medical Necessity - Tobacco Use Smoking Status: Never smoker Assessment/Plan All Active Problems 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 Pneumonia, suspected pneumococcal * strep and leg ag negative * change to Levaquin 750 for 6 more days * Rx sent to pharmacy 2. toxic encephalopathy * resolved * likely due to narcotics * can resume Seroquel and neurontin 3. acute blood loss anemia * stable Hg 13 to 9.8 * stable * no need for transfusion 4. DM2 * uncontrolled * on metformin and SSI * 70/30 ordered but not given * resume 70/30 on discharge * per his , his MBS are well controlled at home. 5. S/p L TKA revision * per orthopaedics 6. DVT proph: * Xarelto 7. Disposition * Ok to discharge from medical standpoint Code Visit Inpatient E&M: 00561 Subs Hosp L2
[2018-02-16] MEDS: Doxycycline 100 MG CAPSULE PO ×2 (10:04→19:52)
[2018-02-16] MEDS: Isosorbide Mononitrate 30 MG Tablet 90 MG PO (10:05)
[2018-02-16] MEDS: Famotidine 20 MG Tablet PO (10:05)
[2018-02-16] MEDS: Lisinopril 20 MG Tablet PO (10:06)
[2018-02-16] MEDS: buPROPion (XL) 300 MG TABLET.XL PO (10:06)
[2018-02-16] MEDS: Senna/Docusate Sodium 1 Tablet 2 TABLET PO (10:06)
[2018-02-16] MEDS: Cilostazol 50 MG Tablet PO ×2 (10:09→19:51)
[2018-02-16] MEDS: levoFLOXacin 750 MG Tablet PO (10:49)
--- NOTE | 2018-02-16 11:54 | NURSING ---
this rn taking over care of pt at this time
[2018-02-16] MEDS: buPROPion (SR) 100 MG TABLET.SA PO (11:59)
[2018-02-16] MEDS: Glucerna Shake 120 ML LIQUID PO ×2 (12:01→16:27)
[2018-02-16 12:21] LABS: Bedside Glucose 129 mg/dL (70-110)
[2018-02-16 16:31] LABS: Bedside Glucose 179 mg/dL (70-110)
[2018-02-16] MEDS: Ketorolac 15 MG/ML Vial IV (19:49)
[2018-02-16] MEDS: 0.9% NaCl Peripheral Flush Adult/Peds IV ×2 (19:51→22:47)
[2018-02-16] MEDS: Metoprolol(XL)Succ 25 MG Tablet 12.5 MG PO (19:51)
[2018-02-16] MEDS: Donepezil HCl 5 MG Tablet PO (19:52)
[2018-02-16] MEDS: Clonidine HCl 0.1 MG, Clonidine HCl 0.2 MG 0.3 MG PO (21:03)
[2018-02-16] MEDS: hydrALAZINE 50 MG Tablet PO (21:35)
[2018-02-16] MEDS: QUEtiapine 25 MG Tablet PO (21:36)
[2018-02-16] MEDS: Gabapentin 300 MG Capsule PO (21:36)
[2018-02-16 21:55] LABS: Bedside Glucose 251 mg/dL (70-110)
--- NOTE | 2018-02-16 22:51 | NURSING ---
Family called out d/t confusion and patient very restless. BP assessed, low, see VS assessment. Call to MD new orders entered. Bolus hung @ this time.
[2018-02-17] VITALS (30 sets, daily range): BP systolic 105–159; BP diastolic 54–108; PULSE 65–102; RESP 15–26; TEMP 37.1–37.7; O2SAT 92–100
[2018-02-17] MEDS: hydrALAZINE 25 MG Tablet PO ×3 (05:20→21:41)
[2018-02-17] MEDS: Rivaroxaban 10 MG Tablet PO (05:20)
[2018-02-17] MEDS: FLUoxetine 20 MG Capsule PO ×3 (05:20→21:42)
[2018-02-17] MEDS: Acetaminophen 500 MG Tablet 1000 MG PO ×3 (05:21→21:44)
[2018-02-17] MEDS: levoFLOXacin 750 MG Tablet PO (05:21)
[2018-02-17] MEDS: Gabapentin 300 MG Capsule PO ×3 (05:21→21:42)
--- NOTE | 2018-02-17 05:55 | EKG12_ITS ---
Test Reason : PRE OP Blood Pressure : / mmHG Vent. Rate : 068 BPM Atrial Rate : 068 BPM P-R Int : 144 ms QRS Dur : 112 ms QT Int : 438 ms P-R-T Axes : 040 040 076 degrees QTc Int : 465 ms Normal sinus rhythm Nonspecific T wave abnormality Prolonged QT Abnormal ECG No previous ECGs available Confirmed by JAYDA STODDARD, MARIANNA ([id number]), graphics editor ANNA GLASGOW ([id number] on 02/21/2018 11:36:59 AM Referred By: Rogelio Seaman Confirmed By:MARIANNA MONTELONGO MD
--- NOTE | 2018-02-17 07:38 | PN.ORTHO_ITS ---
Subjective: The patient was sitting in bedside chair upon examination. Patient denies any chest pain, shortness of breath, dizziness, lightheadedness, nausea or vomiting, or calf pain. Patient does complain of chest pressure. He has had this in the past. Patient's knee pain is doing much better today. He is walking well with assistance. Pain is controlled on medications. Orthopedically patient is doing well with regards to his knee. Plan was for possible discharge home last night but patient was not feeling well and stayed. Overnight patient had blood pressure of 200/120 and medicine was consulted overnight. Blood pressure dropped to 86/46. Patient had significant confusion. He has had some chest pressure. Confusion is much better today and patient is alert and oriented x3. Plan is to have a EKG today. Patient is currently being treated with suspected pneumococcal pneumonia and currently on Levaquin. Patient was admitted into the hospital at [place] in September 2017 due to chest pain and did have heart catheterization. He was shown to have stable coronary artery disease. Patient sees Dr. Lawton, sap basis. Objective: Vital signs stable and temperature currently 99.8 ?F. Patient is able to plantarflex and dorsiflex actively. Sensation is intact to light touch to saphenous, sural, superficial and deep peroneal, and tibial distribution. Dressing is stable minimal drainage over proximal dressing Negative Homans bilaterally, negative signs and symptoms of DVT. - Physical Exam General: Alert, Oriented x3, Cooperative, No apparent distress Vital Signs Temp Pulse Resp BP Pulse Ox 99.8 F H 87 18 139/76 H 96 02/17/18 05:21 02/17/18 05:21 02/17/18 05:21 02/17/18 05:21 02/17/18 07:23 Oxygen Delivery Method Room Air Weight: 112.491 kg Body Mass Index (BMI) 38.8 Finger Stick Blood Glucose 272 Intake and Output for Last 24 Hours 02/15/18 02/16/18 02/17/18 23:59 23:59 23:59 Intake Total 1640 / 1640 800 / 800 900 / 900 Output Total 375 / 375 Balance 1265 / 1265 800 / 800 900 / 900 Microbiology Past 72 Hours 02/13/18 14:17 Gram Stain - Final Tissue - Knee Wound Culture - Final No growth aerobically. Anaerobic Culture - Preliminary No growth in 48 hours. 02/13/18 14:17 Gram Stain - Final Tissue - Knee Wound Culture - Final No growth aerobically. Anaerobic Culture - Preliminary No growth in 48 hours. 02/13/18 14:17 Gram Stain - Final Tissue - Knee Wound Culture - Final No growth aerobically. Anaerobic Culture - Preliminary No growth in 48 hours. 02/15/18 16:55 Streptococcus pneumoniae Antigen (M - Final Urine Catheter - Catheter 02/15/18 16:55 Legionella Antigen - Final Urine Catheter - Catheter Laboratory Tests Past 24 Hrs 02/16/18 02/16/18 07:01 07:01 WBC 10.2 RBC 3.21 L Hgb 9.8 L Hct 29.8 L MCV 92.8 MCH 30.5 MCHC 32.9 RDW 13.3 RDW Differential 43.9 Plt Count 154 MPV 13.0 H Immature Gran % (Auto) 0.200 Neut % (Auto) 76.9 H Lymph % (Auto) 14.0 L [place] % (Auto) 8.6 Eos % (Auto) 0.2 Baso % (Auto) 0.1 Absolute Neuts (auto) 7.8 H Absolute Lymphs (auto) 1.43 Total Counted Not Reportable Sodium 136 Potassium 4.0 Chloride 99 Carbon Dioxide 26.0 Anion Gap 11 BUN 13 Creatinine 0.94 Estim Creat Clear Calc 71.30 Est GFR (MDRD) Af Amer 102 Est GFR (MDRD) Non-Af 84 BUN/Creatinine Ratio 13.8 Glucose 221 H Calcium 8.5 POC Glucose 02/16/18 02/16/18 02/16/18 21:32 16:20 11:56 POC Glucose 251 H 179 H 129 H 02/16/18 08:07 POC Glucose 217 H Medical Necessity - Tobacco Use Smoking Status: Never smoker Assessment/Plan All Active Problems 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 S/P revision left total knee arthroplasty femoral and tibial components POD #4 2. Continue Pain Medications: Tylenol and tramadol, pain has been controlled on current regimen 3. DVT Prophylaxis: Xarelto 4. PT/OT: Weightbearing as tolerated with range of motion as tolerated 5. H & H: 02/16/18 labs were 9.8/29.8, asymptomatic. No current labs at this time. 6. Encouraged Incentive Spirometry 7. Continue doxycycline while following cultures: Currently on doxycycline. Cultures are currently with no growth 8. Continue postoperative medical management per medicine: Patient did have elevated blood pressure overnight as well as increased confusion but has resolved currently. Patient currently with chest pressure this morning. Plan is for EKG. Patient currently on Levaquin for suspected pneumococcal pneumonia. 9. Disposition: Orthopedically stable, patient continues to have comorbidities that are plan significant role in patient's stay at the hospital. Patient has had elevated blood pressure overnight with confusion and currently has chest pressure. Once patient is medically stable plan will be for discharge home. Plan for workup with EKG per medicine. Appreciate assistance and input for treatment with patient due to his multiple comorbidities.
--- NOTE | 2018-02-17 08:12 | PCM.PN.HOSP ---
Patient Problems: Active and Suspected Problems Chest pain (Acute) Hypertensive urgency (Acute) Subjective: had midsternal chest pain last night, and still does. BP went up into the 200s, then dropped. Vitals/I&O's: Vital Signs Temp Pulse Resp BP Pulse Ox 37.7 C H 87 18 139/76 H 96 02/17/18 05:21 02/17/18 05:21 02/17/18 05:21 02/17/18 05:21 02/17/18 07:23 Oxygen Delivery Method Room Air Weight: 112.491 kg Body Mass Index (BMI) 38.8 Finger Stick Blood Glucose 272 Intake and Output for Last 24 Hours 02/15/18 02/16/18 02/17/18 23:59 23:59 23:59 Intake Total 1640 / 1640 800 / 800 900 / 900 Output Total 375 / 375 Balance 1265 / 1265 800 / 800 900 / 900 General: Alert, Cooperative HEENT: Atraumatic, Normocephalic Oral: Moist Mucosa, No Gingival or Mucosal Lesions/ Ulcerations Neck: No Nodes, Thyroid Normal Size and Texture Lungs: Clear to auscultation, Normal air movement, No rhonchi, No wheeze Cardiovascular: Regular rate, Regular Rhythm, Normal S1, Normal S2, No murmurs Abdomen: Bowel Sounds Present, Soft, Non Tender, Non-Distended, No Hepato-splenomegaly Musculoskeletal: - - no reproducible chest wall pain. Microbiology Past 72 Hours 02/13/18 14:17 Tissue - Knee Gram Stain - Final 02/13/18 14:17 Tissue - Knee Wound Culture - Final No growth aerobically. 02/13/18 14:17 Tissue - Knee Anaerobic Culture - Preliminary No growth in 48 hours. 02/13/18 14:17 Tissue - Knee Gram Stain - Final 02/13/18 14:17 Tissue - Knee Wound Culture - Final No growth aerobically. 02/13/18 14:17 Tissue - Knee Anaerobic Culture - Preliminary No growth in 48 hours. 02/13/18 14:17 Tissue - Knee Gram Stain - Final 02/13/18 14:17 Tissue - Knee Wound Culture - Final No growth aerobically. 02/13/18 14:17 Tissue - Knee Anaerobic Culture - Preliminary No growth in 48 hours. 02/15/18 16:55 Urine Catheter - Catheter Streptococcus pneumoniae Antigen (M - Final 02/15/18 16:55 Urine Catheter - Catheter Legionella Antigen - Final Laboratory Results 02/16/18 08:07: POC Glucose 217 H 02/16/18 11:56: POC Glucose 129 H 02/16/18 16:20: POC Glucose 179 H 02/16/18 21:32: POC Glucose 251 H Current Medications Acetaminophen (Tylenol) 1,000 mg PO Q8 [facility] Last Admin: 02/17/18 05:21 Dose: 1,000 mg Albuterol Sulfate (Ventolin Aerosols) 2.5 mg INHALATION Q2H PRN PRN PRN Reason: SHORTNESS OF BREATH Albuterol/Ipratropium (Duoneb) 3 ml INHALATION Q6HWA.RT [facility] Last Admin: 02/16/18 18:40 Dose: Not Given Aspirin (Ecotrin) 81 mg PO DAILYCM [facility] Last Admin: 02/16/18 08:22 Dose: 81 mg Bupropion HCl (Wellbutrin Sr (100mg Tablets)) 100 mg PO LUNCH [facility] Last Admin: 02/16/18 11:59 Dose: 100 mg Bupropion HCl (Wellbutrin Xl) 300 mg PO DAILY [facility] Last Admin: 02/16/18 10:06 Dose: 300 mg Cilostazol (Pletal) 50 mg PO BID [facility] Last Admin: 02/16/18 19:51 Dose: 50 mg Donepezil HCl (Aricept) 5 mg PO QHS [facility] Last Admin: 02/16/18 19:52 Dose: 5 mg Doxycycline Monohydrate (Doxycycline) 100 mg PO BID [facility] Stop: 02/20/18 22:01 Last Admin: 02/16/18 19:52 Dose: 100 mg Famotidine (Pepcid) 20 mg PO DAILY [facility] Last Admin: 02/16/18 10:05 Dose: 20 mg Fluoxetine HCl (Prozac) 20 mg PO TID [facility] Last Admin: 02/17/18 05:20 Dose: 20 mg Gabapentin (Neurontin) 300 mg PO TID [facility] Last Admin: 02/17/18 05:21 Dose: 300 mg Hydralazine HCl (Apresoline Iv) 10 mg IV Q4H PRN PRN PRN Reason: SBP>180 mmhg Hydralazine HCl (Apresoline) 25 mg PO TID [facility] Last Admin: 02/17/18 05:20 Dose: 25 mg Insulin Human Lispro (Humalog Kwikpen (Bkc)) 0 unit SC ACHS [facility]; Protocol Last Admin: 02/16/18 21:37 Dose: 4 units Isosorbide Mononitrate (Imdur) 90 mg PO DAILY [facility] Last Admin: 02/16/18 10:05 Dose: 90 mg Ketorolac Tromethamine (Toradol) 15 mg IV Q6H PRN PRN PRN Reason: MILD-MOD PAIN (1-08/17) Last Admin: 02/16/18 19:49 Dose: 15 mg Levofloxacin (Levaquin Tablet) 750 mg PO DAILY@0600 [facility] Last Admin: 02/17/18 05:21 Dose: 750 mg Lisinopril (Zestril) 20 mg PO DAILY [facility] Last Admin: 02/16/18 10:06 Dose: 20 mg [facility] Admin: 02/16/18 16:22 Dose: 1,000 mg Metoprolol Succinate (Toprol Xl (Beta Lobo)) 12.5 mg PO QHS [facility] Last Admin: 02/16/18 19:51 Dose: 12.5 mg Morphine Sulfate () 2 - 4 mg IV Q2H PRN PRN PRN Reason: SEVERE PAIN (-01/17) Multivitamins (Multivitamin) 1 tablet PO DAILY@0800 [facility] Last Admin: 02/16/18 08:22 Dose: 1 tablet Nutritional Formula (Lactose Free) (Glucerna Shake) 120 ml PO TIDCM [facility] Last Admin: 02/16/18 16:27 Dose: 120 ml Ondansetron HCl (Zofran) 4 mg IV Q8H PRN PRN PRN Reason: NAUSEA Promethazine HCl (Phenergan) 12.5 mg IM Q6H PRN PRN; Protocol PRN Reason: NAUSEA/VOMITING Quetiapine Fumarate (Seroquel) 25 mg PO QHS [facility] Last Admin: 02/16/18 21:36 Dose: 25 mg Rivaroxaban (Xarelto) 10 mg PO DAILY@0600 [facility] Last Admin: 02/17/18 05:20 Dose: 10 mg Senna/Docusate Sodium (Senokot-S, Glenis-Colace) 2 tablet PO BID [facility] Last Admin: 02/16/18 18:11 Dose: Not Given Sodium Chloride () 5 - 30 ml IV UD PRN PRN Reason: SALINE FLUSH Last Admin: 02/16/18 22:47 Dose: 10 ml Medical Necessity - Tobacco Use Smoking Status: Never smoker Assessment/Plan All Active Problems Chest pain (Acute) Hypertensive urgency (Acute) 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 Pneumonia, suspected pneumococcal strep and leg ag negative change to Levaquin 750 for 5 more days Rx sent to pharmacy 2. toxic encephalopathy resolved likely due to narcotics can resume Seroquel and neurontin 3. acute blood loss anemia stable Hg 13 to 9.8 stable no need for transfusion 4. DM2 uncontrolled on metformin and SSI 70/30 ordered but not given resume 70/30 on discharge per his , his MBS are well controlled at home. 5. Chest pain atypical known CAD cycle trop check stress 6. Hypertensive urgency labile continue lisinopril on hydralazine 25 TID 7. S/p L TKA revision per orthopaedics 8. DVT proph: Xarelto 7. Disposition With the new events since my last evaluation, hold discharge If stress negative and BP stable, can be discharged--medically. Code Visit Inpatient E&M: 97408 Subs Hosp L2
[2018-02-17] MEDS: metFORMIN HCl 1,000 MG Tablet 1000 MG PO (08:17)
[2018-02-17] MEDS: Multivitamins,Therapeutic Tablet 1 TABLET PO (08:17)
[2018-02-17] MEDS: Aspirin E.C. 81 MG Tablet PO (08:17)
[2018-02-17] MEDS: Insulin Human 75/25 Kwickpen 26 UNIT SC (08:17)
[2018-02-17] MEDS: Insulin Lispro 100 UNIT/ML INSULN.PEN SC ×2 (08:18→21:47)
--- NOTE | 2018-02-17 08:18 | PN_ITS ---
Patient Problems: Active and Suspected Problems Chest pain (Acute) Hypertensive urgency (Acute) Subjective: had midsternal chest pain last night, and still does. BP went up into the 200s, then dropped. Vitals/I&O's: Vital Signs Temp Pulse Resp BP Pulse Ox 37.7 C H 87 18 139/76 H 96 02/17/18 05:21 02/17/18 05:21 02/17/18 05:21 02/17/18 05:21 02/17/18 07:23 Oxygen Delivery Method Room Air Weight: 112.491 kg Body Mass Index (BMI) 38.8 Finger Stick Blood Glucose 272 Intake and Output for Last 24 Hours 02/15/18 02/16/18 02/17/18 23:59 23:59 23:59 Intake Total 1640 / 1640 800 / 800 900 / 900 Output Total 375 / 375 Balance 1265 / 1265 800 / 800 900 / 900 General: Alert, Cooperative HEENT: Atraumatic, Normocephalic Oral: Moist Mucosa, No Gingival or Mucosal Lesions/ Ulcerations Neck: No Nodes, Thyroid Normal Size and Texture Lungs: Clear to auscultation, Normal air movement, No rhonchi, No wheeze Cardiovascular: Regular rate, Regular Rhythm, Normal S1, Normal S2, No murmurs Abdomen: Bowel Sounds Present, Soft, Non Tender, Non-Distended, No Hepato- splenomegaly Musculoskeletal: - - no reproducible chest wall pain. Microbiology Past 72 Hours 02/13/18 14:17 Tissue - Knee Gram Stain - Final 02/13/18 14:17 Tissue - Knee Wound Culture - Final No growth aerobically. 02/13/18 14:17 Tissue - Knee Anaerobic Culture - Preliminary No growth in 48 hours. 02/13/18 14:17 Tissue - Knee Gram Stain - Final 02/13/18 14:17 Tissue - Knee Wound Culture - Final No growth aerobically. 02/13/18 14:17 Tissue - Knee Anaerobic Culture - Preliminary No growth in 48 hours. 02/13/18 14:17 Tissue - Knee Gram Stain - Final 02/13/18 14:17 Tissue - Knee Wound Culture - Final No growth aerobically. 02/13/18 14:17 Tissue - Knee Anaerobic Culture - Preliminary No growth in 48 hours. 02/15/18 16:55 Urine Catheter - Catheter Streptococcus pneumoniae Antigen (M - Final 02/15/18 16:55 Urine Catheter - Catheter Legionella Antigen - Final Laboratory Results 02/16/18 08:07: POC Glucose 217 H 02/16/18 11:56: POC Glucose 129 H 02/16/18 16:20: POC Glucose 179 H 02/16/18 21:32: POC Glucose 251 H Current Medications Acetaminophen (Tylenol) 1,000 mg PO Q8 [facility] Last Admin: 02/17/18 05:21 Dose: 1,000 mg Albuterol Sulfate (Ventolin Aerosols) 2.5 mg INHALATION Q2H PRN PRN PRN Reason: SHORTNESS OF BREATH Albuterol/Ipratropium (Duoneb) 3 ml INHALATION Q6HWA.RT [facility] Last Admin: 02/16/18 18:40 Dose: Not Given Aspirin (Ecotrin) 81 mg PO DAILYCM [facility] Last Admin: 02/16/18 08:22 Dose: 81 mg Bupropion HCl (Wellbutrin Sr (100mg Tablets)) 100 mg PO LUNCH [facility] Last Admin: 02/16/18 11:59 Dose: 100 mg Bupropion HCl (Wellbutrin Xl) 300 mg PO DAILY [facility] Last Admin: 02/16/18 10:06 Dose: 300 mg Cilostazol (Pletal) 50 mg PO BID [facility] Last Admin: 02/16/18 19:51 Dose: 50 mg Donepezil HCl (Aricept) 5 mg PO QHS [facility] Last Admin: 02/16/18 19:52 Dose: 5 mg Doxycycline Monohydrate (Doxycycline) 100 mg PO BID [facility] Stop: 02/20/18 22:01 Last Admin: 02/16/18 19:52 Dose: 100 mg Famotidine (Pepcid) 20 mg PO DAILY [facility] Last Admin: 02/16/18 10:05 Dose: 20 mg Fluoxetine HCl (Prozac) 20 mg PO TID [facility] Last Admin: 02/17/18 05:20 Dose: 20 mg Gabapentin (Neurontin) 300 mg PO TID [facility] Last Admin: 02/17/18 05:21 Dose: 300 mg Hydralazine HCl (Apresoline Iv) 10 mg IV Q4H PRN PRN PRN Reason: SBP>180 mmhg Hydralazine HCl (Apresoline) 25 mg PO TID [facility] Last Admin: 02/17/18 05:20 Dose: 25 mg Insulin Human Lispro (Humalog Kwikpen (Bkc)) 0 unit SC ACHS [facility]; Protocol Last Admin: 02/16/18 21:37 Dose: 4 units Isosorbide Mononitrate (Imdur) 90 mg PO DAILY [facility] Last Admin: 02/16/18 10:05 Dose: 90 mg Ketorolac Tromethamine (Toradol) 15 mg IV Q6H PRN PRN PRN Reason: MILD-MOD PAIN (1-08/17) Last Admin: 02/16/18 19:49 Dose: 15 mg Levofloxacin (Levaquin Tablet) 750 mg PO DAILY@0600 [facility] Last Admin: 02/17/18 05:21 Dose: 750 mg Lisinopril (Zestril) 20 mg PO DAILY [facility] Last Admin: 02/16/18 10:06 Dose: 20 mg [facility] Admin: 02/16/18 16:22 Dose: 1,000 mg Metoprolol Succinate (Toprol Xl (Beta Lobo)) 12.5 mg PO QHS [facility] Last Admin: 02/16/18 19:51 Dose: 12.5 mg Morphine Sulfate () 2 - 4 mg IV Q2H PRN PRN PRN Reason: SEVERE PAIN (-01/17) Multivitamins (Multivitamin) 1 tablet PO DAILY@0800 [facility] Last Admin: 02/16/18 08:22 Dose: 1 tablet Nutritional Formula (Lactose Free) (Glucerna Shake) 120 ml PO TIDCM [facility] Last Admin: 02/16/18 16:27 Dose: 120 ml Ondansetron HCl (Zofran) 4 mg IV Q8H PRN PRN PRN Reason: NAUSEA Promethazine HCl (Phenergan) 12.5 mg IM Q6H PRN PRN; Protocol PRN Reason: NAUSEA/VOMITING Quetiapine Fumarate (Seroquel) 25 mg PO QHS [facility] Last Admin: 02/16/18 21:36 Dose: 25 mg Rivaroxaban (Xarelto) 10 mg PO DAILY@0600 [facility] Last Admin: 02/17/18 05:20 Dose: 10 mg Senna/Docusate Sodium (Senokot-S, Glenis-Colace) 2 tablet PO BID [facility] Last Admin: 02/16/18 18:11 Dose: Not Given Sodium Chloride () 5 - 30 ml IV UD PRN PRN Reason: SALINE FLUSH Last Admin: 02/16/18 22:47 Dose: 10 ml Medical Necessity - Tobacco Use Smoking Status: Never smoker Assessment/Plan All Active Problems Chest pain (Acute) Hypertensive urgency (Acute) 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 Pneumonia, suspected pneumococcal * strep and leg ag negative * change to Levaquin 750 for 5 more days * Rx sent to pharmacy 2. toxic encephalopathy * resolved * likely due to narcotics * can resume Seroquel and neurontin 3. acute blood loss anemia * stable Hg 13 to 9.8 * stable * no need for transfusion 4. DM2 * uncontrolled * on metformin and SSI * 70/30 ordered but not given * resume 70/30 on discharge * per his , his MBS are well controlled at home. 5. Chest pain * atypical * known CAD * cycle trop * check stress 6. Hypertensive urgency * labile * continue lisinopril * on hydralazine 25 TID 7. S/p L TKA revision * per orthopaedics 8. DVT proph: * Xarelto 7. Disposition * With the new events since my last evaluation, hold discharge * If stress negative and BP stable, can be discharged--medically. Code Visit Inpatient E&M: 25209 Subs Hosp L2
[2018-02-17] MEDS: buPROPion (XL) 300 MG TABLET.XL PO (08:19)
[2018-02-17] MEDS: Famotidine 20 MG Tablet PO (08:20)
--- NOTE | 2018-02-17 08:22 | NURSING ---
talked with cardiovascular stress staff they are awaRe of new order for stress test. aware he is going to call us when he knows if he has the dose to be able to do it or not.
[2018-02-17 08:31] LABS: Bedside Glucose 242 mg/dL (70-110)
--- NOTE | 2018-02-17 09:22 | NURSING ---
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
[2018-02-17] MEDS: Doxycycline 100 MG CAPSULE PO ×2 (09:47→21:42)
[2018-02-17] MEDS: Lisinopril 20 MG Tablet PO (09:47)
--- NOTE | 2018-02-17 10:16 | ECHOCS_ITS ---
Reason For Study: Chest Pain Procedure This was a 2D Doppler, Color Flow transthoracic echocardiogram. The study was technically difficult. Contrast injection was performed. Exam performed portable in patient room. Left Ventricle Moderate concentric left ventricular hypertrophy. The estimated ejection fraction is 45-50 %. Stage 2 diastolic dysfunction. There are regional wall motion abnormalities as specified. Right Ventricle Normal size and thickness. Normal systolic function. Atria The left atrium is moderately enlarged. Normal right atrium. Normal atrial septum. Mitral Valve The mitral valve is structurally normal. No prolapse or stenosis seen. Trivial eccentric mitral valve insufficiency. Tricuspid Valve Normal tricuspid valve. Mild (1+) tricuspid valve insufficiency. Right ventricular systolic pressure estimated to be 45 mmHg. Mild pulmonary hypertension. Aortic Valve Normal aortic valve. Trisinus/trileaflet aortic valve. Pulmonic Valve The pulmonic valve is not well visualized. Great Vessels Normal aortic root. Normal arch. Normal inferior vena cava. Inferior vena cava collapse with sniff. Pericardium/Pleural No pericardial effusion. Medication Diluted definity 4ml given slow IV push to enhance endocardial definition. MMode/2D Measurements & Calculations LVIDd: 4.8 cm IVSd: 1.6 cm Ao root diam: 3.9 cm LVIDs: 3.5 cm LVPWd: 1.3 cm LA dimension: 4.6 cm FS: 27.3 % LAV(MOD-bp): 84.2 ml LA A4 area: 25.9 cm2 LAV(MOD-bp) Indexed: 38.0 ml/m2 LAV(MOD-sp2): 83.2 ml LAV(MOD-sp4): 85.7 ml Time Measurements MV dec time: 0.15 sec Doppler Measurements & Calculations MV E max vinod: 114.4 cm/sec Lat Peak E' Vinod: 5.9 cm/sec Med Peak E' Vinod: 6.0 cm/sec MV A max vinod: 44.5 cm/sec E/E' lat: 19.5 E/E' med: 19.1 MV E/A: 2.6 MV V2 max: 137.7 cm/sec MV P1/2t max vinod: 138.7 cm/sec Ao V2 max: 141.6 cm/sec MV max P.6 mmHg MV P1/2t: 89.7 msec Ao max P.0 mmHg MV V2 mean: 62.4 cm/sec MV dec slope: 452.7 cm/sec2 Ao V2 mean: 82.1 cm/sec MV mean P.0 mmHg MVA(P1/2t): 2.5 cm2 Ao mean P.2 mmHg MV V2 VTI: 37.1 cm Ao V2 VTI: 24.0 cm LV V1 max: 119.0 cm/sec PA V2 max: 122.3 cm/sec TR max vinod: 313.4 cm/sec LV V1 max P.7 mmHg TR max P.3 mmHg LV V1 mean P.3 mmHg LV V1 mean: 69.3 cm/sec LV V1 VTI: 21.4 cm Interpretation Summary Moderate concentric left ventricular hypertrophy. The estimated ejection fraction is 45-50 %. Stage 2 diastolic dysfunction. There are regional wall motion abnormalities as specified. The left atrium is moderately enlarged. Trivial eccentric mitral valve insufficiency. Mild (1+) tricuspid valve insufficiency. Right ventricular systolic pressure estimated to be 45 mmHg. Mild pulmonary hypertension. The study was technically limited. The study was technically difficult. There is no comparison study available. Contrast injection was performed. Ordering Physician: Clarence Castro Referring Physician: Rogelio Seaman Performed By: Chente Turner RCS
[2018-02-17 11:21] LABS: Bedside Glucose 87 mg/dL (70-110)
[2018-02-17 11:21] LABS: Absolute Lymphocyte Count 1.66 X10^3/ul (0.83-4.51); Absolute Neutrophil Count 7.1 X10^3/uL (2.0-7.7); Basophil# 0.01 X10^3/uL; Basophil% 0.1 % (0-1); Eosinophil# 0.08 X10^3/uL; Eosinophils% 0.8 % (0-5); Hematocrit 28.9 % (40-54); Hemoglobin 9.4 g/dl (13.0-16.5); Lymphocyte # 1.66 X10^3/ul (4.0); Lymphocyte % 17.1 % (19-41); Mean Corp Hgb Conc 32.5 g/gl (32-36); Mean Corpuscular Hgb 29.7 pg (27.0-32.0); Mean Corpuscular Volume 91.2 fL (80-94); Mean Platelet Vol. 12.6 fl (6.2-12.0); Monocyte% 9.3 % (0-10); Neutrophil # 7.06 X10^3/uL (2.7-7.7); Neutrophil % 72.6 % (47-70); Platelet Count 174 K/mm3 (150-450); RBC Distribution Width CV 13.3 % (11.6-14.6); RBC Distribution Width SD 44.7 fl (35.1-43.9); Red Blood Count 3.17 M/mm3 (4.6-6.2); White Blood Count 9.7 K/mm3 (4.4-11.0)
[2018-02-17 11:22] LABS: International Normalized Ratio 1.6; Prothrombin Time (Protime)PT. 19.5 SECONDS (11.7-14.9)
[2018-02-17 11:23] LABS: Differential Indicated SCAN CRITERIA MET; POSITIVE COUNT NO; POSITIVE DIFFERENTIAL YES; POSITIVE MORPHOLOGY NO; Partial Thromboplast Time 52.1 Seconds (24.1-36.2)
[2018-02-17] MEDS: Clopidogrel Bisulfate 300 MG Tablet PO (11:23)
[2018-02-17] MEDS: 0.9% NaCl Peripheral Flush Adult/Peds IV (11:23)
[2018-02-17] MEDS: HEPARIN/D5w 25,000 UNITS 25,000 UNITS/250 ML IV.SOLN. 15 UNITS IV (11:24)
[2018-02-17] MEDS: buPROPion (SR) 100 MG TABLET.SA PO (11:30)
[2018-02-17] MEDS: Insulin Lispro 100 UNIT/ML INSULN.PEN 8 UNIT SQ ×2 (11:30→17:45)
[2018-02-17] MEDS: Glucerna Shake 120 ML LIQUID PO ×2 (11:31→17:45)
--- NOTE | 2018-02-17 11:32 | CON.PCM_ITS ---
Problem List (1) Non-STEMI (non-ST elevated myocardial infarction) Status: Acute (2) Coronary artery disease Status: Acute (3) Hypertensive urgency Status: Acute (4) Chest pain Status: Acute (5) DM2 (diabetes mellitus, type 2) Status: Chronic Reason for Consult Date of Consultation: 02/17/18 Reason for Consultation: Unstable angina, coronary artery disease status post CABG, non-STEMI, mild LV dysfunction, hypertensive urgency, diabetes, anemia History of Present Illness: The patient is a 67 year old M, with diabetes, hypertension, hypercholesterolemia, coronary artery disease status post bypass surgery x2 operations. His initial operation took place at [facility] by Dr. Mijares and apparently was 3 vessels in 2006, followed by 4 vessels in [address] Lani shah at [facility]. 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 Apparently he was seen in September 2017 with complaint of chest pain underwent repeat catheterization on 09/25/17 at [facility]. At that time he was found to have a 25% left main, and occluded LAD, and 80% obtuse marginal #1, a 50% left circumflex which was flow wire and found to be 0.95, and a 90% obtuse marginal #3. Of note, it did not mention in his report whether his bypass grafts were imaged at that time. His previous echocardiogram showed an EF around 50% with lateral wall hypokinesis at baseline. Patient apparently has had worsening left knee pain, to the point where he required a total knee replacement which was performed on Monday of this past week by Dr. Seaman. Apparently he had done well up until around when he developed substernal chest pain with associated hypertension as his blood pressure was 199/106. In addition he had a decrease in his hemoglobin from his baseline of 13 down to around 10. Patient was seen by hospitalist last evening and EKG was performed which showed normal sinus rhythm, incomplete right bundle branch block, and no acute changes. His initial troponin was 9.2 and he was moved to PCU telemetry for further evaluation. The patient reports that prior to his surgery he had limited mobility but did have episodes of substernal chest pain. Apparently he had had Imdur 90 mg p.o. daily added in September 2017 for his coronary artery disease and medical management. Patient was given 300 mg of Plavix, followed by 75 mg daily starting today as well as an IV heparin drip. Currently the patient is resting comfortably. No acute distress, family at bedside. His left knee is wrapped in a cooling sleeve, but appears to have no significant pain. Apparently he is intolerant to statins, and also has peripheral vascular disease currently on cilostazol. An echocardiogram was done today which demonstrated mild mid anterior and mid inferior hypokinesis with an overall ejection fraction of around 45-50%, and an RVSP of 45 mmHg. This is consistent with his recent echocardiogram in September 2017. [] Past Medical History Allergies/Adverse Reactions: Allergies hydrochlorothiazide Allergy (Verified 02/13/18 10:13) Unknown Penicillins [PCN] Allergy (Verified 02/13/18 10:13) Swelling pioglitazone [From Actos] Allergy (Verified 02/13/18 10:13) Unknown oxycodone [From OxyIR] Adverse Reaction (Verified 02/15/18 23:25) Other pravastatin Adverse Reaction (Verified 02/13/18 10:13) Pain in joints tramadol [From Ultram] Adverse Reaction (Verified 02/15/18 23:25) Other Home Medications: Ambulatory Orders Medication Instructions Recorded Aspirin [Aspirin EC] 81 mg PO DAILY 03/15/17 Bupropion HCl [Bupropion HCl ER] 100 mg PO LUNCH 03/15/17 Cilostazol 50 mg PO BID 03/15/17 Fluoxetine HCl [Prozac] 20 mg PO TID 03/15/17 Gabapentin [Neurontin] 300 mg PO TID 03/15/17 Insulin Human 70/30 [Novolog Mix 26 units SC DAILYCM 03/15/17 70-30 Flexpen Syrn] Insulin Human 70/30 [Novolog Mix 30 units SC DINNER 03/15/17 70-30 Flexpen Syrn] Lisinopril [Zestril] 20 mg PO DAILY 03/15/17 Metformin HCl [Glucophage] 1,000 mg PO BIDCM 03/15/17 Metoprolol Succinate [Toprol Xl] 12.5 mg PO QHS 03/15/17 Multivitamin [Multiple Vitamins] 1 each PO DAILY 03/15/17 buPROPion XL [Wellbutrin Xl] 300 mg PO DAILY 03/15/17 Donepezil HCl [Aricept] 5 mg PO QHS 01/24/18 Isosorbide Mononitrate [Imdur] 90 mg PO DAILY 01/24/18 Quetiapine Fumarate [Seroquel] 25 mg PO DAILY 01/24/18 levoFLOXacin tablet [Levaquin 750 mg PO DAILY@0600 #5 tablet 02/16/18 tablet] Past Medical History (Chronic Problems): Chronic Problems DM2 (diabetes mellitus, type 2) (Chronic) Smoking Status: Never smoker Review of Systems - Review of Systems General: Denies: Fever, Night Sweats, Fatigue Cardiovascular: Denies: Chest Discomfort, Shortness of Breath, Orthopnea, PND, Peripheral Edema, Palpitations, Lightheadedness, Dizziness, Near Syncope, Syncope Respiratory: Denies: Cough, Sputum Production, Hemoptysis Gastrointestinal: Denies: Hematemesis, Hematochezia, Melena Genitourinary: Denies: Dysuria, Hematuria Skin: Denies: Rash Objective: Vital Signs Temp Pulse Resp BP Pulse Ox 99.2 F H 68 18 142/62 H 99 02/17/18 09:30 02/17/18 09:45 02/17/18 09:30 02/17/18 09:45 02/17/18 09:30 Oxygen Delivery Method Room Air Weight: 248 lb Body Mass Index (BMI) 38.8 Finger Stick Blood Glucose 272 Intake and Output for Last 24 Hours 02/15/18 02/16/18 02/17/18 23:59 23:59 23:59 Intake Total 1640 / 1640 800 / 800 900 / 900 Output Total 375 / 375 Balance 1265 / 1265 800 / 800 900 / 900 General: Awake, Alert, Oriented x 3 HEENT: PERRL, EOMI, Sclera Non Icteric Neck: Supple, Good ROM, No Lymph Node Enlargement Lungs: Clear to auscultation Cardiovascular: Regular Rhythm, Normal S1, Normal S2, No Murmurs, No Rubs, No Gallops Vascular: No Carotid Bruits, Normal Femoral Pulses, Normal Radial Pulses, Normal Dorsalis Pedal Pulse, Normal Posterior Tibial Pulses Abdomen: Bowel Sounds Present, Soft, Non Tender, No HSM, No Organomegaly Extremities: No Cyanosis, No Clubbing, No edema Neurological: No Focal Motor or Sensory Deficit 02/17/18 08:45: Troponin I 9.220 H* 02/17/18 11:05: WBC 9.7, RBC 3.17 L, Hgb 9.4 L, Hct 28.9 L, MCV 91.2, MCH 29.7, MCHC 32.5, RDW 13.3, RDW Differential 44.7 H, Plt Count 174, MPV 12.6 H, Immature Gran % (Auto) 0.100, Neut % (Auto) 72.6 H, Lymph % (Auto) 17.1 L, [place] % (Auto) 9.3, Eos % (Auto) 0.8, Baso % (Auto) 0.1, Absolute Neuts (auto) 7.1 Rhythm: EKG: As above ECHO: As above Stress Test: Cardiac Cath: Pending PCI: CT Surgery: Holter monitor: EPS: PPM: CXR: Chest CT Scan: Assessment/Plan 1. Coronary artery disease: The patient has an extensive coronary history including 2 bypass surgeries, the most recent of which was in 2014, repeat catheterization in September 2017 however no mention of his bypass grafts were delineated in his report. The patient was found to have significant LAD and left circumflex disease and had a flow wire evaluation of his left circumflex which was reportedly 0.95. No intervention was done at that time in order to facilitate the patient getting his knee surgery. Subsequent to his knee surgery the patient had a hypertensive urgency episode with a blood pressure of 199/106, possibly due to pain and/or limitations with giving him his pills or Imdur. His initial troponin was 9.2 superimposed upon a negative EKG for acute changes. Would recommend continuing baby aspirin 81 mg p.o. daily, loading him with Plavix 300 mg p.o. x1 followed by 75 mg/day if okay with Dr. Seaman, and starting him on an IV heparin drip to keep his PTT between 40 and 60. In addition I recommend that we obtain his catheterization film from September 2017 to fully evaluate his coronary anatomy to determine whether he requires a repeat catheterization and whether there be any benefit to doing so. If the patient has recurrent anginal symptoms despite adequate medical therapy would recommend catheterization prior to receiving his cath film. The meantime we will continue his Imdur 90 mg p.o. daily, restarting his Lopressor 12.5 mg nightly, continuing lisinopril 20 mg a day, in keeping his systolic blood pressure less than 140 in order to avoid demand ischemia. Would not recommend stress testing at this time. Recommend checking his troponins for a total of 3 sets to outline his degree of coronary ischemia/infarct. His echocardiogram done today demonstrates mild LV dysfunction with an EF of 50% with an RVSP of 45 mmHg. Also in the differential is possible pulmonary emboli as a result of his recent surgery however he does not appear to be tachypneic or short of breath as of this writing. As the treatment is the same with IV heparin, would not recommend exposing the patient to contrast dye in order to evaluate for pulmonary embolism. 2. Hyperlipidemia: The patient apparently is unable to tolerate statins although he has cardiovascular and peripheral vascular disease. Recommend o btaining a fasting lipid profile, and then initiating gemfibrozil 600 mg p.o. twice daily for aggressive LDL reduction. 3. Discussed with Dr. Castro. Thank you very much for the opportunity to par hermila in the cardiac care of your patient. Consultation time took place between 11 AM and 11:41 AM. Code Visit Inpatient E&M: 00030 Init Hosp L2
[2018-02-17 13:46] LABS: Cholesterol 162 mg/dL (200); High Density Lipoprotein 56 mg/dL; Triglycerides 164 mg/dL; Very Low Density Lipoprotein 33 mg/dL (5-40)
[2018-02-17 16:35] LABS: Bedside Glucose 115 mg/dL (70-110)
[2018-02-17] MEDS: Gemfibrozil 600 MG Tablet PO (17:45)
[2018-02-17 18:26] LABS: Partial Thromboplast Time 64.4 Seconds (24.1-36.2)
[2018-02-17] MEDS: QUEtiapine 25 MG Tablet PO (21:42)
[2018-02-17] MEDS: Metoprolol(XL)Succ 25 MG Tablet 12.5 MG PO (21:42)
[2018-02-17] MEDS: Donepezil HCl 5 MG Tablet PO (21:42)
[2018-02-17 23:16] LABS: Bedside Glucose 223 mg/dL (70-110)
[2018-02-17 23:50] LABS: Partial Thromboplast Time 62.6 Seconds (24.1-36.2)
[2018-02-18] VITALS (30 sets, daily range): BP systolic 111–166; BP diastolic 65–88; PULSE 59–87; RESP 14–23; TEMP 36.5–37.3; O2SAT 93–98
[2018-02-18] MEDS: HEPARIN/D5w 25,000 UNITS 25,000 UNITS/250 ML IV.SOLN. 15 UNITS IV (02:40)
[2018-02-18] MEDS: levoFLOXacin 750 MG Tablet PO (06:08)
[2018-02-18] MEDS: FLUoxetine 20 MG Capsule PO ×3 (06:09→22:23)
[2018-02-18] MEDS: Gabapentin 300 MG Capsule PO ×3 (06:09→22:22)
[2018-02-18] MEDS: Acetaminophen 500 MG Tablet 1000 MG PO ×3 (06:10→22:26)
[2018-02-18] MEDS: hydrALAZINE 25 MG Tablet PO ×3 (06:10→22:21)
[2018-02-18 06:56] LABS: Bedside Glucose 232 mg/dL (70-110)
[2018-02-18 07:24] LABS: Partial Thromboplast Time 56.5 Seconds (24.1-36.2)
[2018-02-18 07:45] LABS: Absolute Lymphocyte Count 1.77 X10^3/ul (0.83-4.51); Absolute Neutrophil Count 4.9 X10^3/uL (2.0-7.7); Basophil# 0.01 X10^3/uL; Basophil% 0.1 % (0-1); Eosinophil# 0.09 X10^3/uL; Eosinophils% 1.2 % (0-5); Hematocrit 28.1 % (40-54); Hemoglobin 9.2 g/dl (13.0-16.5); Lymphocyte # 1.77 X10^3/ul (4.0); Lymphocyte % 23.6 % (19-41); Mean Corp Hgb Conc 32.7 g/gl (32-36); Mean Corpuscular Hgb 29.8 pg (27.0-32.0); Mean Corpuscular Volume 90.9 fL (80-94); Mean Platelet Vol. 12.5 fl (6.2-12.0); Monocyte# 0.74 X10^3/uL; Monocyte% 9.9 % (0-10); Neutrophil # 4.89 X10^3/uL (2.7-7.7); Neutrophil % 65.1 % (47-70); POSITIVE COUNT NO; POSITIVE DIFFERENTIAL NO; POSITIVE MORPHOLOGY NO; Platelet Count 193 K/mm3 (150-450); RBC Distribution Width CV 13.4 % (11.6-14.6); RBC Distribution Width SD 44.2 fl (35.1-43.9); Red Blood Count 3.09 M/mm3 (4.6-6.2); White Blood Count 7.5 K/mm3 (4.4-11.0)
[2018-02-18 07:53] LABS: Anion Gap 10 (5-15); BUN 11 mg/dL (7-18); BUN/Creat Ratio 12.7 RATIO (10-20); Calcium,Total 8.2 mg/dL (8.5-10.1); Chloride 102 mmol/L (98-107); Creatinine, Serum 0.87 mg/dL (0.70-1.30); EST Glomerular Filtration Rate 93 mL/min (>60); Est Glom Filt Rate - Afr Amer 113 mL/min (>60); Estimated Creatinine Clearance 77.03 ml/min; Glucose 229 mg/dL (74-106); Potassium 3.7 mmol/L (3.5-5.1); Sodium Level 138 mmol/L (136-145)
[2018-02-18] MEDS: Ibuprofen 600 MG Tablet PO ×2 (08:23→18:40)
[2018-02-18] MEDS: Insulin Lispro 100 UNIT/ML INSULN.PEN 8 UNIT SQ ×3 (08:24→16:20)
[2018-02-18] MEDS: Insulin Lispro 100 UNIT/ML INSULN.PEN SC ×4 (08:24→22:24)
[2018-02-18] MEDS: Glucerna Shake 120 ML LIQUID PO ×3 (08:27→16:24)
[2018-02-18] MEDS: Multivitamins,Therapeutic Tablet 1 TABLET PO (08:28)
[2018-02-18] MEDS: Aspirin E.C. 81 MG Tablet PO (08:28)
[2018-02-18] MEDS: Gemfibrozil 600 MG Tablet PO ×2 (08:28→16:22)
--- NOTE | 2018-02-18 09:02 | DCINST_ITS ---
Discharge Diet: No Restrictions Discharge Activity: May Not Drive May shower in (days): 1 - turn dressing away from water Ice area for (Minutes): 20 - every hour while awake. Weight Bearing Status: Weight bearing as tolerated Elevate: Operative Extremity Additional Activity Instructions:: Wear elastic stockings for 2 weeks after your surgery. Call your doctor if your incision/area has: Continuous Slow Oozing, Sudden Increased Bleeding, Increased Pain/ Swelling, Increased Redness, Foul Smelling Discharge Call your doctor if you observe: Fever of 101 or Higher, Coldness, Increased Pain, Numbness or Tingling, Change in Color, Calf discomfort, Uncontrolled pain Remove Dressing in (days):: 2 - Remove Dressing on 02/20/18, will use dry dressing without tape at that time Additional Instructions: Patient will follow up per post-op instructions Pain Control: Take Extra Strength Tylenol 500 mg 2 tablets every 8 hours for primary pain control. Then use Tramadol 50 mg 1-2 tablets as needed for breakthrough pain. Allergies/Adverse Reactions: Allergies hydrochlorothiazide Allergy (Verified 02/13/18 10:13) Unknown Penicillins [PCN] Allergy (Verified 02/13/18 10:13) Swelling pioglitazone [From Actos] Allergy (Verified 02/13/18 10:13) Unknown oxycodone [From OxyIR] Adverse Reaction (Verified 02/15/18 23:25) Other pravastatin Adverse Reaction (Verified 02/13/18 10:13) Pain in joints tramadol [From Ultram] Adverse Reaction (Verified 02/15/18 23:25) Other Medications to take at Discharge Aspirin [Aspirin EC] 81 mg PO DAILY 03/15/17 Bupropion HCl [Bupropion HCl ER] 100 mg PO LUNCH 03/15/17 Cilostazol 50 mg PO BID 03/15/17 Fluoxetine HCl [Prozac] 20 mg PO TID 03/15/17 Gabapentin [Neurontin] 300 mg PO TID 03/15/17 Insulin Human 70/30 [Novolog Mix 70-30 Flexpen Syrn] 26 units SC DAILYCM 03/15/17 Insulin Human 70/30 [Novolog Mix 70-30 Flexpen Syrn] 30 units SC DINNER 03/15/17 Lisinopril [Zestril] 20 mg PO DAILY 03/15/17 Metformin HCl [Glucophage] 1,000 mg PO BIDCM 03/15/17 Metoprolol Succinate [Toprol Xl] 12.5 mg PO QHS 03/15/17 Multivitamin [Multiple Vitamins] 1 each PO DAILY 03/15/17 buPROPion XL [Wellbutrin Xl] 300 mg PO DAILY 03/15/17 Donepezil HCl [Aricept] 5 mg PO QHS 01/24/18 Isosorbide Mononitrate [Imdur] 90 mg PO DAILY 01/24/18 Quetiapine Fumarate [Seroquel] 25 mg PO DAILY 01/24/18 levoFLOXacin tablet [Levaquin tablet] 750 mg PO DAILY@0600 #5 tablet 02/16/18 The following prescriptions were given: levoFLOXacin tablet [Levaquin tablet] 750 mg PO DAILY@0600 #5 tablet Primary Care Physician: Juve Reed MD [Primary Care Provider] - Test Results: Test results from this visit will be discussed in further detail at your follow- up appointment, if applicable. Please Follow Up With: Cesar Simpson PA-C When: 02/26/18 @ 10:00 am Please Follow Up With: Home Health Physical Therapy When: will need to be set up prior to discharge
[2018-02-18] MEDS: Clopidogrel Bisulfate 75 MG Tablet PO (09:08)
[2018-02-18] MEDS: Doxycycline 100 MG CAPSULE PO ×2 (09:08→22:23)
[2018-02-18] MEDS: Famotidine 20 MG Tablet PO (09:09)
[2018-02-18] MEDS: Lisinopril 20 MG Tablet PO (09:09)
[2018-02-18] MEDS: buPROPion (XL) 300 MG TABLET.XL PO (09:09)
--- NOTE | 2018-02-18 10:39 | PCM.PN.CARD ---
Subjectve: Patient doing fairly well this morning. No further chest pain. Blood pressure has improved but still not optimized. Left knee is somewhat tender but no evidence of hematoma as best I can tell. It is still wrapped in a cooling wrap. Troponins trending downwards. Telemetry showed normal sinus rhythm with rare PACs. No ventricular arrhythmias noted. Objective: Vital Signs Temp Pulse Resp BP Pulse Ox 98.6 F 72 17 133/76 H 97 02/18/18 05:00 02/18/18 10:00 02/18/18 10:00 02/18/18 10:00 02/18/18 10:00 Oxygen Delivery Method Room Air Weight: 247 lb 15.968 oz Body Mass Index (BMI) 38.8 Finger Stick Blood Glucose 272 Intake and Output for Last 24 Hours 02/16/18 02/17/18 02/18/18 23:59 23:59 23:59 Intake Total 800 / 800 1807 / 1807 856.9 / 856.9 Output Total 300 / 300 Balance 800 / 800 1507 / 1507 856.9 / 856.9 General: Awake, Alert, Oriented x 3 HEENT: PERRL, EOMI, Sclera Non Icteric Neck: Supple, Good ROM, No Lymph Node Enlargement Lungs: Clear to auscultation Cardiovascular: Regular Rhythm, Normal S1, Normal S2, No Murmurs, No Rubs, No Gallops Vascular: No Carotid Bruits, Normal Femoral Pulses, Normal Radial Pulses, Normal Dorsalis Pedal Pulse, Normal Posterior Tibial Pulses Abdomen: Bowel Sounds Present, Soft, Non Tender, No HSM, No Organomegaly Extremities: No Cyanosis, No Clubbing, No edema Neurological: No Focal Motor or Sensory Deficit 02/17/18 11:05: Troponin I 9.790 H* 02/17/18 11:05: WBC 9.7, RBC 3.17 L, Hgb 9.4 L, Hct 28.9 L, MCV 91.2, MCH 29.7, MCHC 32.5, RDW 13.3, RDW Differential 44.7 H, Plt Count 174, MPV 12.6 H, Immature Gran % (Auto) 0.100, Neut % (Auto) 72.6 H, Lymph % (Auto) 17.1 L, [place] % (Auto) 9.3, Eos % (Auto) 0.8, Baso % (Auto) 0.1, Absolute Neuts (auto) 7.1, Total Counted Not Reportable 02/17/18 11:05: PT 19.5 H, INR 1.6, APTT 52.1 H 02/17/18 11:05: Triglycerides 164, Cholesterol 162, LDL Cholesterol 73, VLDL Cholesterol 33, HDL Cholesterol 56 02/17/18 13:59: Troponin I 6.790 H* 02/17/18 17:36: APTT 64.4 H 02/17/18 23:25: APTT 62.6 H 02/18/18 06:54: APTT 56.5 H 02/18/18 06:54: WBC 7.5, RBC 3.09 L, Hgb 9.2 L, Hct 28.1 L, MCV 90.9, MCH 29.8, MCHC 32.7, RDW 13.4, RDW Differential 44.2 H, Plt Count 193, MPV 12.5 H, Immature Gran % (Auto) 0.100, Neut % (Auto) 65.1, Lymph % (Auto) 23.6, [place] % (Auto) 9.9, Eos % (Auto) 1.2, Baso % (Auto) 0.1, Absolute Neuts (auto) 4.9, Total Counted Not Reportable 02/18/18 06:54: Sodium 138, Potassium 3.7, Chloride 102, Carbon Dioxide 26.0, Anion Gap 10, BUN 11, Creatinine 0.87, Est GFR (MDRD) Af Amer 113, Est GFR (MDRD) Non-Af 93, BUN/Creatinine Ratio 12.7, Glucose 229 H, Calcium 8.2 L Rhythm: EKG: ECHO: Stress Test: Cardiac Cath: PCI: CT Surgery: Holter monitor: EPS: PPM: CXR: Chest CT Scan: Medical Necessity - Tobacco Use Smoking Status: Never smoker Assessment/Plan 1. Coronary artery disease: The patient has an extensive coronary history including 2 bypass surgeries, the most recent of which was in 2014, repeat catheterization in September 2017 however no mention of his bypass grafts were delineated in his report. The patient was found to have significant LAD and left circumflex disease and had a flow wire evaluation of his left circumflex which was reportedly 0.95. No intervention was done at that time in order to facilitate the patient getting his knee surgery. Subsequent to his knee surgery the patient had a hypertensive urgency episode with a blood pressure of 199/106, possibly due to pain and/or limitations with giving him his pills or Imdur. His initial troponin was 9.2 superimposed upon a negative EKG for acute changes. Troponin is trending downwards to 6.9. Would recommend continuing baby aspirin 81 mg p.o. daily, loading him with Plavix 300 mg p.o. x1 followed by 75 mg/day if okay with Dr. Wilburn. Recommend discontinuation of his IV heparin given his recent knee surgery and the fact that his troponin is going down and he said no further chest pain with optimal medical management. In addition I recommend that we obtain his catheterization film from September 2017 to fully evaluate his coronary anatomy to determine whether he requires a repeat catheterization and whether there be any benefit to doing so. If the patient has recurrent anginal symptoms despite adequate medical therapy would recommend catheterization prior to receiving his cath film. We will discontinue his nitroglycerin drip, and restart him on his Imdur 90 mg p.o. daily, restarting his Toprol XL 12.5 mg nightly, continuing lisinopril 20 mg a day, in keeping his systolic blood pressure less than 140 in order to avoid demand ischemia. Would His echocardiogram done today demonstrates mild LV dysfunction with an EF of 50% with an RVSP of 45 mmHg. Also in the differential is possible pulmonary emboli as a result of his recent surgery however he does not appear to be tachypneic or short of breath as of this writing. As the treatment is the same with IV heparin, would not recommend exposing the patient to contrast dye in order to evaluate for pulmonary embolism. 2. Hyperlipidemia: The patient apparently is unable to tolerate statins although he has cardiovascular and peripheral vascular disease. Recommend obtaining a fasting lipid profile, and then initiating gemfibrozil 600 mg p.o. twice daily for aggressive LDL reduction. 3. Discussed with Dr. Castro. Thank you very much for the opportunity to participate in the cardiac care of your patient. Would not recommend discharge home until his catheterization film arise for review by myself, as well as optimization of his blood pressure and ensuring that his left knee has no hematoma present. Code Visit Inpatient E&M: 35587 Subs Hosp L2
[2018-02-18] MEDS: Isosorbide Mononitrate 30 MG Tablet 90 MG PO (11:02)
[2018-02-18] MEDS: 0.9% NaCl Peripheral Flush Adult/Peds IV (11:03)
[2018-02-18] MEDS: buPROPion (SR) 100 MG TABLET.SA PO (11:05)
[2018-02-18 11:11] LABS: Bedside Glucose 157 mg/dL (70-110)
--- NOTE | 2018-02-18 11:24 | PCM.PN.HOSP ---
Patient Problems: Active and Suspected Problems Non-STEMI (non-ST elevated myocardial infarction) (Acute) Coronary artery disease (Acute) Subjective: Patient seen and examined. He had no complaints and was comfortably eating breakfast. The pain in his knee was well controlled. Chest pain had resolved. He denied any fever or chills, any cough shortness of breath, abdominal pain, any diarrhea vomiting. He was on heparin drip at time of review and also nitroglycerin drip. Review of labs, troponin had trended down from 9 to about 6. Cardiology on board. Vitals/I&O's: Vital Signs Temp Pulse Resp BP Pulse Ox 99.2 F H 67 20 H 156/82 H 97 02/18/18 11:00 02/18/18 11:10 02/18/18 11:00 02/18/18 11:00 02/18/18 11:00 Oxygen Delivery Method Room Air Weight: 247 lb 15.968 oz Body Mass Index (BMI) 38.8 Finger Stick Blood Glucose 272 Intake and Output for Last 24 Hours 02/16/18 02/17/18 02/18/18 23:59 23:59 23:59 Intake Total 800 / 800 1807 / 1807 856.9 / 856.9 Output Total 300 / 300 Balance 800 / 800 1507 / 1507 856.9 / 856.9 General: Alert, Oriented x3, Cooperative, No apparent distress HEENT: Atraumatic, PERRLA, EOMI, Normocephalic Oral: Moist Mucosa Neck: Supple, No JVD, Negative Carotid Bruits, Negative Hepatojugular Reflux, No Nodes Lungs: Clear to auscultation, Normal air movement, No rhonchi, No wheeze, No rales Cardiovascular: Regular rate, Regular Rhythm, Normal S1, Normal S2, No murmurs Abdomen: Bowel Sounds Present, Soft, Non Tender, Non-Distended, No Hepato-splenomegaly Extremities: No clubbing, No cyanosis, No edema, Capillary Refill Less than 3 Seconds, - - left knee dressing is intact. NO tenderness Skin: No rashes, No breakdown Musculoskeletal: No Tenderness to Palpation of Joints or Extremities Lymphatic: No Cervical, Supraclavicular, or Inguinal Adenopathy Neurological: Cranial nerves II-XII grossly intact, Neuro grossly intact Psych/Mental Status: Normal Affect, Appropriate, Alert and oriented to time, place, person, mood and affect Microbiology Past 72 Hours 02/15/18 16:55 Urine Catheter - Catheter Urine Culture - Final Culture exhibits no growth. 02/13/18 14:17 Tissue - Knee Gram Stain - Final 02/13/18 14:17 Tissue - Knee Wound Culture - Final No growth aerobically. 02/13/18 14:17 Tissue - Knee Anaerobic Culture - Preliminary No growth in 48 hours. 02/13/18 14:17 Tissue - Knee Gram Stain - Final 02/13/18 14:17 Tissue - Knee Wound Culture - Final No growth aerobically. 02/13/18 14:17 Tissue - Knee Anaerobic Culture - Preliminary No growth in 48 hours. 02/13/18 14:17 Tissue - Knee Gram Stain - Final 02/13/18 14:17 Tissue - Knee Wound Culture - Final No growth aerobically. 02/13/18 14:17 Tissue - Knee Anaerobic Culture - Preliminary No growth in 48 hours. 02/15/18 16:55 Urine Catheter - Catheter Streptococcus pneumoniae Antigen (M - Final 02/15/18 16:55 Urine Catheter - Catheter Legionella Antigen - Final Laboratory Results 02/17/18 11:05: Troponin I 9.790 H* 02/17/18 11:05: WBC 9.7, RBC 3.17 L, Hgb 9.4 L, Hct 28.9 L, MCV 91.2, MCH 29.7, MCHC 32.5, RDW 13.3, RDW Differential 44.7 H, Plt Count 174, MPV 12.6 H, Immature Gran % (Auto) 0.100, Neut % (Auto) 72.6 H, Lymph % (Auto) 17.1 L, [place] % (Auto) 9.3, Eos % (Auto) 0.8, Baso % (Auto) 0.1, Absolute Neuts (auto) 7.1, Absolute Lymphs (auto) 1.66, Total Counted Not Reportable 02/17/18 11:05: PT 19.5 H, INR 1.6, APTT 52.1 H 02/17/18 11:05: Triglycerides 164, Cholesterol 162, LDL Cholesterol 73, VLDL Cholesterol 33, HDL Cholesterol 56 02/17/18 13:59: Troponin I 6.790 H* 02/17/18 16:26: POC Glucose 115 H 02/17/18 17:36: APTT 64.4 H 02/17/18 21:35: POC Glucose 223 H 02/17/18 23:25: APTT 62.6 H 02/18/18 06:44: POC Glucose 232 H 02/18/18 06:54: APTT 56.5 H 02/18/18 06:54: WBC 7.5, RBC 3.09 L, Hgb 9.2 L, Hct 28.1 L, MCV 90.9, MCH 29.8, MCHC 32.7, RDW 13.4, RDW Differential 44.2 H, Plt Count 193, MPV 12.5 H, Immature Gran % (Auto) 0.100, Neut % (Auto) 65.1, Lymph % (Auto) 23.6, [place] % (Auto) 9.9, Eos % (Auto) 1.2, Baso % (Auto) 0.1, Absolute Neuts (auto) 4.9, Absolute Lymphs (auto) 1.77, Total Counted Not Reportable 02/18/18 06:54: Sodium 138, Potassium 3.7, Chloride 102, Carbon Dioxide 26.0, Anion Gap 10, BUN 11, Creatinine 0.87, Estim Creat Clear Calc 77.03, Est GFR (MDRD) Af Amer 113, Est GFR (MDRD) Non-Af 93, BUN/Creatinine Ratio 12.7, Glucose 229 H, Calcium 8.2 L 02/18/18 10:59: POC Glucose 157 H Current Medications Acetaminophen (Tylenol) 1,000 mg PO Q8 [facility] Last Admin: 02/18/18 06:10 Dose: 1,000 mg Albuterol Sulfate (Ventolin Aerosols) 2.5 mg INHALATION Q2H PRN PRN PRN Reason: SHORTNESS OF BREATH Albuterol/Ipratropium (Duoneb) 3 ml INHALATION Q6HWA.RT [facility] Last Admin: 02/18/18 07:15 Dose: Not Given Aspirin (Ecotrin) 81 mg PO DAILYCM [facility] Last Admin: 02/18/18 08:28 Dose: 81 mg Bupropion HCl (Wellbutrin Sr (100mg Tablets)) 100 mg PO LUNCH [facility] Last Admin: 02/18/18 11:05 Dose: 100 mg Bupropion HCl (Wellbutrin Xl) 300 mg PO DAILY [facility] Last Admin: 02/18/18 09:09 Dose: 300 mg Clopidogrel Bisulfate (Plavix) 75 mg PO DAILY [facility] Last Admin: 02/18/18 09:08 Dose: 75 mg Dextrose (D50w Syringe) 0 gm IV X1 PRN; Protocol PRN Reason: Hypoglycemia Donepezil HCl (Aricept) 5 mg PO QHS [facility] Last Admin: 02/17/18 21:42 Dose: 5 mg Doxycycline Monohydrate (Doxycycline) 100 mg PO BID [facility] Stop: 02/20/18 22:01 Last Admin: 02/18/18 09:08 Dose: 100 mg Famotidine (Pepcid) 20 mg PO DAILY [facility] Last Admin: 02/18/18 09:09 Dose: 20 mg Fluoxetine HCl (Prozac) 20 mg PO TID [facility] Last Admin: 02/18/18 06:09 Dose: 20 mg Gabapentin (Neurontin) 300 mg PO TID [facility] Last Admin: 02/18/18 06:09 Dose: 300 mg [facility] Last Admin: 02/18/18 08:28 Dose: 600 mg Glucagon () 1 mg IM .X1 PRN PRN Reason: Hypoglycemia Heparin Sodium (Porcine) (Heparin Na) 0 unit IV UD PRN; Protocol Hydralazine HCl (Apresoline Iv) 10 mg IV Q4H PRN PRN PRN Reason: SBP>180 mmhg Hydralazine HCl (Apresoline) 25 mg PO TID [facility] Last Admin: 02/18/18 06:10 Dose: 25 mg Ibuprofen (Motrin) 600 mg PO Q8H PRN PRN PRN Reason: MILD PAIN (1-3/10) Last Admin: 02/18/18 08:23 Dose: 600 mg Insulin Glargine (Lantus (Bkc)) 25 units SC QHS [facility] Last Admin: 02/17/18 21:46 Dose: 25 units Insulin Human Lispro (Humalog Kwikpen (Bkc)) 0 unit SC ACHS [facility]; Protocol Last Admin: 02/18/18 11:03 Dose: 2 units Insulin Human Lispro (Humalog Kwikpen (Bkc)) 8 unit SQ BREAKFAST [facility] Last Admin: 02/18/18 08:24 Dose: 8 u Insulin Human Lispro (Humalog Kwikpen (Bkc)) 8 unit SQ DINNER [facility] Last Admin: 02/17/18 17:45 Dose: 8 u Insulin Human Lispro (Humalog Kwikpen (Bkc)) 8 unit SQ LUNCH [facility] Last Admin: 02/18/18 11:04 Dose: 8 u Levofloxacin (Levaquin Tablet) 750 mg PO DAILY@0600 [facility] Last Admin: 02/18/18 06:08 Dose: 750 mg Lisinopril (Zestril) 20 mg PO DAILY [facility] Last Admin: 02/18/18 09:09 Dose: 20 mg Metoprolol Succinate (Toprol Xl (Beta Lobo)) 12.5 mg PO QHS [facility] Last Admin: 02/17/18 21:42 Dose: 12.5 mg Morphine Sulfate () 2 - 4 mg IV Q2H PRN PRN PRN Reason: SEVERE PAIN () Multivitamins (Multivitamin) 1 tablet PO DAILY@0800 [facility] Last Admin: 02/18/18 08:28 Dose: 1 tablet Nutritional Formula (Lactose Free) (Glucerna Shake) 120 ml PO TIDCM [facility] Last Admin: 02/18/18 11:03 Dose: 120 ml Ondansetron HCl (Zofran) 4 mg IV Q8H PRN PRN PRN Reason: NAUSEA Promethazine HCl (Phenergan) 12.5 mg IM Q6H PRN PRN; Protocol PRN Reason: NAUSEA/VOMITING Quetiapine Fumarate (Seroquel) 25 mg PO QHS [facility] Last Admin: 02/17/18 21:42 Dose: 25 mg Senna/Docusate Sodium (Senokot-S, [place]-Colace) 2 tablet PO BID [facility] Last Admin: 02/18/18 09:09 Dose: Not Given Sodium Chloride () 5 - 30 ml IV UD PRN PRN Reason: SALINE FLUSH Last Admin: 02/18/18 11:03 Dose: 10 ml Medical Necessity - Tobacco Use Smoking Status: Never smoker Assessment/Plan All Active Problems Non-STEMI (non-ST elevated myocardial infarction) (Acute) Coronary artery disease (Acute) Hypertensive urgency (Acute) Chest pain (Acute) 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 NSTEMI Admitted for revision of left total knee replacement. Subsequently developed chest pain after surgery. Troponin check came back at 9. EKG showed no acute ST changes. Chest pain is resolved. Was on heparin drip and nitro drip at time of review. Cardiology on board. Troponin trended down to about 6 overnight. Per cardiology recs, since chest pain is resolved, stop nitro drip. Also in light of recent left knee replacement, to stop heparin drip for now. Does have a history of CAD and had a repeat cath in September 2017 which found significant LAD and left circumflex disease as well as a flow wire evaluation of his left circumflex which was reportedly 0.95. No intervention was done at that time to facilitate him getting his knee surgery. To continue baby aspirin 81 mg daily and Plavix 75 mg daily. Scheduled for cardiac cath tomorrow. On statin. Started on Imdur and Toprol as well as lisinopril. 2D echocardiogram showed moderate left ventricular dysfunction with EF of 50% and RVSP of 45 mmHg. 2. CAD s/p CABG x 2 Had recent cardiac cath as mentioned on . Currently on Imdur, statin, aspirin, cilostazol, Plavix. Cardiology on board. 3. s/p revision of left total knee replacement today is POD 2. stable orthopedics on board pain well controlled 4. Hypertension Had hypertensive urgency after cath. This is now resolved and blood pressure to 120s-150s systolic. On lisinopril 20mg daily and Toprol XL 12.5mg daily as well as hydralazine 25 mg 3 times daily. 5. Post op pneumonia developed pneumonia less than 48 hours after admission. Was started on IV ceftriaxone and azithromycin. Currently stable. Lungs are clear to auscultation. transition to p.o. Levaquin 750 mg daily. 12 for total 5-day course. 6. Acute metabolic encephalopathy was likely medication induced- narcotics resolved. is AO x 3 on seroquel and neurontin 7. Acute blood loss anemia likely due to surgery. Hb was 13 on admission; now down to 9.2. Will consider transfusion if Hb falls to less than 8 in light of cardiac history. 8. History of DVT: was on xarelto. This is currently on hold pending possible cath tomorrow. 9. Diabetes mellitus: On metformin and insulin sliding scale. Also on Lantus 25 g nightly. WIll hold metformin in light of possible cath tomorrow. 9. Dementia: on donepezil. 10. DVT prophylaxis: was started on xarelto, but this was stopped when heparin drip was started. Now heparin drip dced; however, we will not resume Xarelto until route delivery driver definitely decided whether they are doing a catheter otherwise. Currently on aspirin SCDs Code Visit Inpatient E&M: 46408 [facility] Hosp L3
--- NOTE | 2018-02-18 11:40 | PN_ITS ---
Patient Problems: Active and Suspected Problems Non-STEMI (non-ST elevated myocardial infarction) (Acute) Coronary artery disease (Acute) Subjective: Patient seen and examined. He had no complaints and was comfortably eating breakfast. The pain in his knee was well controlled. Chest pain had resolved. He denied any fever or chills, any cough shortness of breath, abdominal pain, any diarrhea vomiting. He was on heparin drip at time of review and also nitroglycerin drip. Review of labs, troponin had trended down from 9 to about 6. Cardiology on board. Vitals/I&O's: Vital Signs Temp Pulse Resp BP Pulse Ox 99.2 F H 67 20 H 156/82 H 97 02/18/18 11:00 02/18/18 11:10 02/18/18 11:00 02/18/18 11:00 02/18/18 11:00 Oxygen Delivery Method Room Air Weight: 247 lb 15.968 oz Body Mass Index (BMI) 38.8 Finger Stick Blood Glucose 272 Intake and Output for Last 24 Hours 02/16/18 02/17/18 02/18/18 23:59 23:59 23:59 Intake Total 800 / 800 1807 / 1807 856.9 / 856.9 Output Total 300 / 300 Balance 800 / 800 1507 / 1507 856.9 / 856.9 General: Alert, Oriented x3, Cooperative, No apparent distress HEENT: Atraumatic, PERRLA, EOMI, Normocephalic Oral: Moist Mucosa Neck: Supple, No JVD, Negative Carotid Bruits, Negative Hepatojugular Reflux, No Nodes Lungs: Clear to auscultation, Normal air movement, No rhonchi, No wheeze, No rales Cardiovascular: Regular rate, Regular Rhythm, Normal S1, Normal S2, No murmurs Abdomen: Bowel Sounds Present, Soft, Non Tender, Non-Distended, No Hepato- splenomegaly Extremities: No clubbing, No cyanosis, No edema, Capillary Refill Less than 3 Seconds, - - left knee dressing is intact. NO tenderness Skin: No rashes, No breakdown Musculoskeletal: No Tenderness to Palpation of Joints or Extremities Lymphatic: No Cervical, Supraclavicular, or Inguinal Adenopathy Neurological: Cranial nerves II-XII grossly intact, Neuro grossly intact Psych/Mental Status: Normal Affect, Appropriate, Alert and oriented to time, place, person, mood and affect Microbiology Past 72 Hours 02/15/18 16:55 Urine Catheter - Catheter Urine Culture - Final Culture exhibits no growth. 02/13/18 14:17 Tissue - Knee Gram Stain - Final 02/13/18 14:17 Tissue - Knee Wound Culture - Final No growth aerobically. 02/13/18 14:17 Tissue - Knee Anaerobic Culture - Preliminary No growth in 48 hours. 02/13/18 14:17 Tissue - Knee Gram Stain - Final 02/13/18 14:17 Tissue - Knee Wound Culture - Final No growth aerobically. 02/13/18 14:17 Tissue - Knee Anaerobic Culture - Preliminary No growth in 48 hours. 02/13/18 14:17 Tissue - Knee Gram Stain - Final 02/13/18 14:17 Tissue - Knee Wound Culture - Final No growth aerobically. 02/13/18 14:17 Tissue - Knee Anaerobic Culture - Preliminary No growth in 48 hours. 02/15/18 16:55 Urine Catheter - Catheter Streptococcus pneumoniae Antigen (M - Final 02/15/18 16:55 Urine Catheter - Catheter Legionella Antigen - Final Laboratory Results 02/17/18 11:05: Troponin I 9.790 H* 02/17/18 11:05: WBC 9.7, RBC 3.17 L, Hgb 9.4 L, Hct 28.9 L, MCV 91.2, MCH 29.7, MCHC 32.5, RDW 13.3, RDW Differential 44.7 H, Plt Count 174, MPV 12.6 H, Immature Gran % (Auto) 0.100, Neut % (Auto) 72.6 H, Lymph % (Auto) 17.1 L, [place] % (Auto) 9.3, Eos % (Auto) 0.8, Baso % (Auto) 0.1, Absolute Neuts (auto) 7.1, Absolute Lymphs (auto) 1.66, Total Counted Not Reportable 02/17/18 11:05: PT 19.5 H, INR 1.6, APTT 52.1 H 02/17/18 11:05: Triglycerides 164, Cholesterol 162, LDL Cholesterol 73, VLDL Cholesterol 33, HDL Cholesterol 56 02/17/18 13:59: Troponin I 6.790 H* 02/17/18 16:26: POC Glucose 115 H 02/17/18 17:36: APTT 64.4 H 02/17/18 21:35: POC Glucose 223 H 02/17/18 23:25: APTT 62.6 H 02/18/18 06:44: POC Glucose 232 H 02/18/18 06:54: APTT 56.5 H 02/18/18 06:54: WBC 7.5, RBC 3.09 L, Hgb 9.2 L, Hct 28.1 L, MCV 90.9, MCH 29.8, MCHC 32.7, RDW 13.4, RDW Differential 44.2 H, Plt Count 193, MPV 12.5 H, Immature Gran % (Auto) 0.100, Neut % (Auto) 65.1, Lymph % (Auto) 23.6, [place] % (Auto) 9.9, Eos % (Auto) 1.2, Baso % (Auto) 0.1, Absolute Neuts (auto) 4.9, Absolute Lymphs (auto) 1.77, Total Counted Not Reportable 02/18/18 06:54: Sodium 138, Potassium 3.7, Chloride 102, Carbon Dioxide 26.0, Anion Gap 10, BUN 11, Creatinine 0.87, Estim Creat Clear Calc 77.03, Est GFR (MDRD) Af Amer 113, Est GFR (MDRD) Non-Af 93, BUN/Creatinine Ratio 12.7, Glucose 229 H, Calcium 8.2 L 02/18/18 10:59: POC Glucose 157 H Current Medications Acetaminophen (Tylenol) 1,000 mg PO Q8 [facility] Last Admin: 02/18/18 06:10 Dose: 1,000 mg Albuterol Sulfate (Ventolin Aerosols) 2.5 mg INHALATION Q2H PRN PRN PRN Reason: SHORTNESS OF BREATH Albuterol/Ipratropium (Duoneb) 3 ml INHALATION Q6HWA.RT [facility] Last Admin: 02/18/18 07:15 Dose: Not Given Aspirin (Ecotrin) 81 mg PO DAILYCM [facility] Last Admin: 02/18/18 08:28 Dose: 81 mg Bupropion HCl (Wellbutrin Sr (100mg Tablets)) 100 mg PO LUNCH [facility] Last Admin: 02/18/18 11:05 Dose: 100 mg Bupropion HCl (Wellbutrin Xl) 300 mg PO DAILY [facility] Last Admin: 02/18/18 09:09 Dose: 300 mg Clopidogrel Bisulfate (Plavix) 75 mg PO DAILY [facility] Last Admin: 02/18/18 09:08 Dose: 75 mg Dextrose (D50w Syringe) 0 gm IV X1 PRN; Protocol PRN Reason: Hypoglycemia Donepezil HCl (Aricept) 5 mg PO QHS [facility] Last Admin: 02/17/18 21:42 Dose: 5 mg Doxycycline Monohydrate (Doxycycline) 100 mg PO BID [facility] Stop: 02/20/18 22:01 Last Admin: 02/18/18 09:08 Dose: 100 mg Famotidine (Pepcid) 20 mg PO DAILY [facility] Last Admin: 02/18/18 09:09 Dose: 20 mg Fluoxetine HCl (Prozac) 20 mg PO TID [facility] Last Admin: 02/18/18 06:09 Dose: 20 mg Gabapentin (Neurontin) 300 mg PO TID [facility] Last Admin: 02/18/18 06:09 Dose: 300 mg [facility] Last Admin: 02/18/18 08:28 Dose: 600 mg Glucagon () 1 mg IM .X1 PRN PRN Reason: Hypoglycemia Heparin Sodium (Porcine) (Heparin Na) 0 unit IV UD PRN; Protocol Hydralazine HCl (Apresoline Iv) 10 mg IV Q4H PRN PRN PRN Reason: SBP>180 mmhg Hydralazine HCl (Apresoline) 25 mg PO TID [facility] Last Admin: 02/18/18 06:10 Dose: 25 mg Ibuprofen (Motrin) 600 mg PO Q8H PRN PRN PRN Reason: MILD PAIN (1-3/10) Last Admin: 02/18/18 08:23 Dose: 600 mg Insulin Glargine (Lantus (Bkc)) 25 units SC QHS [facility] Last Admin: 02/17/18 21:46 Dose: 25 units Insulin Human Lispro (Humalog Kwikpen (Bkc)) 0 unit SC ACHS [facility]; Protocol Last Admin: 02/18/18 11:03 Dose: 2 units Insulin Human Lispro (Humalog Kwikpen (Bkc)) 8 unit SQ BREAKFAST [facility] Last Admin: 02/18/18 08:24 Dose: 8 u Insulin Human Lispro (Humalog Kwikpen (Bkc)) 8 unit SQ DINNER [facility] Last Admin: 02/17/18 17:45 Dose: 8 u Insulin Human Lispro (Humalog Kwikpen (Bkc)) 8 unit SQ LUNCH [facility] Last Admin: 02/18/18 11:04 Dose: 8 u Levofloxacin (Levaquin Tablet) 750 mg PO DAILY@0600 [facility] Last Admin: 02/18/18 06:08 Dose: 750 mg Lisinopril (Zestril) 20 mg PO DAILY [facility] Last Admin: 02/18/18 09:09 Dose: 20 mg Metoprolol Succinate (Toprol Xl (Beta Lobo)) 12.5 mg PO QHS [facility] Last Admin: 02/17/18 21:42 Dose: 12.5 mg Morphine Sulfate () 2 - 4 mg IV Q2H PRN PRN PRN Reason: SEVERE PAIN () Multivitamins (Multivitamin) 1 tablet PO DAILY@0800 [facility] Last Admin: 02/18/18 08:28 Dose: 1 tablet Nutritional Formula (Lactose Free) (Glucerna Shake) 120 ml PO TIDCM [facility] Last Admin: 02/18/18 11:03 Dose: 120 ml Ondansetron HCl (Zofran) 4 mg IV Q8H PRN PRN PRN Reason: NAUSEA Promethazine HCl (Phenergan) 12.5 mg IM Q6H PRN PRN; Protocol PRN Reason: NAUSEA/VOMITING Quetiapine Fumarate (Seroquel) 25 mg PO QHS [facility] Last Admin: 02/17/18 21:42 Dose: 25 mg Senna/Docusate Sodium (Senokot-S, [place]-Colace) 2 tablet PO BID [facility] Last Admin: 02/18/18 09:09 Dose: Not Given Sodium Chloride () 5 - 30 ml IV UD PRN PRN Reason: SALINE FLUSH Last Admin: 02/18/18 11:03 Dose: 10 ml Medical Necessity - Tobacco Use Smoking Status: Never smoker Assessment/Plan All Active Problems Non-STEMI (non-ST elevated myocardial infarction) (Acute) Coronary artery disease (Acute) Hypertensive urgency (Acute) Chest pain (Acute) 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 NSTEMI * Admitted for revision of left total knee replacement. Subsequently developed chest pain after surgery. Troponin check came back at 9. EKG showed no acute ST changes. * Chest pain is resolved. Was on heparin drip and nitro drip at time of review. * Cardiology on board. Troponin trended down to about 6 overnight. * Per cardiology recs, since chest pain is resolved, stop nitro drip. Also in light of recent left knee replacement, to stop heparin drip for now. * Does have a history of CAD and had a repeat cath in September 2017 which found significant LAD and left circumflex disease as well as a flow wire evaluation of his left circumflex which was reportedly 0.95. No intervention was done at that time to facilitate him getting his knee surgery. * To continue baby aspirin 81 mg daily and Plavix 75 mg daily. * Scheduled for cardiac cath tomorrow. On statin. * Started on Imdur and Toprol as well as lisinopril. * 2D echocardiogram showed moderate left ventricular dysfunction with EF of 50% and RVSP of 45 mmHg. * 2. CAD s/p CABG x 2 * Had recent cardiac cath as mentioned on . * Currently on Imdur, statin, aspirin, cilostazol, Plavix. * Cardiology on board. * 3. s/p revision of left total knee replacement * today is POD 2. stable * orthopedics on board * pain well controlled * 4. Hypertension * Had hypertensive urgency after cath. This is now resolved and blood pressure to 120s-150s systolic. * On lisinopril 20mg daily and Toprol XL 12.5mg daily as well as hydralazine 25 mg 3 times daily. * 5. Post op pneumonia * developed pneumonia less than 48 hours after admission. Was started on IV ceftriaxone and azithromycin. * Currently stable. Lungs are clear to auscultation. transition to p.o. Levaquin 750 mg daily. 12 for total 5-day course. * 6. Acute metabolic encephalopathy * was likely medication induced- narcotics * resolved. is AO x 3 * on seroquel and neurontin * * 7. Acute blood loss anemia * likely due to surgery. Hb was 13 on admission; now down to 9.2. Will consider transfusion if Hb falls to less than 8 in light of cardiac history. * 8. History of DVT: was on xarelto. This is currently on hold pending possible cath tomorrow. 9. Diabetes mellitus: On metformin and insulin sliding scale. Also on Lantus 25 g nightly. WIll hold metformin in light of possible cath tomorrow. 9. Dementia: on donepezil. 10. DVT prophylaxis: * was started on xarelto, but this was stopped when heparin drip was started. * Now heparin drip dced; however, we will not resume Xarelto until parts counter sales person definitely decided whether they are doing a catheter otherwise. * Currently on aspirin * SCDs Code Visit Inpatient E&M: 92098 [facility] Hosp L3
[2018-02-18 13:50] LABS: Partial Thromboplast Time 35.8 Seconds (24.1-36.2)
--- NOTE | 2018-02-18 14:45 | PCM.PN.ORT ---
Patient Problems: Active and Suspected Problems Non-STEMI (non-ST elevated myocardial infarction) (Acute) Coronary artery disease (Acute) Subjective: Patient doing well today. No altered mental status alert and oriented x3. Patient states his knee pain is well controlled. He has had swelling as expected status post surgery. Cardiology and medicine notes were reviewed. Patient appears to be stable at this time. Working diagnosis is acute myocardial infarction with possibility of pulmonary embolus. Cardiology is attempting to obtain previous cardiac imaging and determine whether or not a stress test is necessary. From an orthopedic standpoint patient has very few complaints today. - Physical Exam General: Alert, Oriented x3, Cooperative Extremities: - - Left lower extremity: Dressing is clean dry and intact Sensations intact to light touch saphenous, sural, superficial peroneal, deep peroneal, and tibial distributions Motors intact EHL, DF, PF calves are soft and supple Vital Signs Temp Pulse Resp BP Pulse Ox 99.2 F H 77 20 H 138/66 H 97 02/18/18 11:00 02/18/18 13:06 02/18/18 11:00 02/18/18 13:06 02/18/18 11:00 Oxygen Delivery Method Room Air Weight: 247 lb 15.968 oz Body Mass Index (BMI) 38.8 Finger Stick Blood Glucose 272 Intake and Output for Last 24 Hours 02/16/18 02/17/18 02/18/18 23:59 23:59 23:59 Intake Total 800 / 800 1807 / 1807 1436.7 / 1436.7 Output Total 300 / 300 Balance 800 / 800 1507 / 1507 1436.7 / 1436.7 Microbiology Past 72 Hours 02/15/18 16:55 Urine Culture - Final Urine Catheter - Catheter Culture exhibits no growth. 02/13/18 14:17 Gram Stain - Final Tissue - Knee Wound Culture - Final No growth aerobically. Anaerobic Culture - Preliminary No growth in 48 hours. 02/13/18 14:17 Gram Stain - Final Tissue - Knee Wound Culture - Final No growth aerobically. Anaerobic Culture - Preliminary No growth in 48 hours. 02/13/18 14:17 Gram Stain - Final Tissue - Knee Wound Culture - Final No growth aerobically. Anaerobic Culture - Preliminary No growth in 48 hours. 02/15/18 16:55 Streptococcus pneumoniae Antigen (M - Final Urine Catheter - Catheter 02/15/18 16:55 Legionella Antigen - Final Urine Catheter - Catheter Laboratory Tests Past 24 Hrs 02/17/18 02/17/18 02/17/18 13:59 17:36 23:25 WBC RBC Hgb Hct MCV MCH MCHC RDW RDW Differential Plt Count MPV Immature Gran % (Auto) Neut % (Auto) Lymph % (Auto) Cotton % (Auto) Eos % (Auto) Baso % (Auto) Absolute Neuts (auto) Absolute Lymphs (auto) Total Counted APTT 64.4 H 62.6 H Sodium Potassium Chloride Carbon Dioxide Anion Gap BUN Creatinine Estim Creat Clear Calc Est GFR (MDRD) Af Amer Est GFR (MDRD) Non-Af BUN/Creatinine Ratio Glucose Calcium Troponin I 6.790 H* 02/18/18 02/18/18 02/18/18 06:54 06:54 06:54 WBC 7.5 RBC 3.09 L Hgb 9.2 L Hct 28.1 L MCV 90.9 MCH 29.8 MCHC 32.7 RDW 13.4 RDW Differential 44.2 H Plt Count 193 MPV 12.5 H Immature Gran % (Auto) 0.100 Neut % (Auto) 65.1 Lymph % (Auto) 23.6 Cotton % (Auto) 9.9 Eos % (Auto) 1.2 Baso % (Auto) 0.1 Absolute Neuts (auto) 4.9 Absolute Lymphs (auto) 1.77 Total Counted Not Reportable APTT 56.5 H Sodium 138 Potassium 3.7 Chloride 102 Carbon Dioxide 26.0 Anion Gap 10 BUN 11 Creatinine 0.87 Estim Creat Clear Calc 77.03 Est GFR (MDRD) Af Amer 113 Est GFR (MDRD) Non-Af 93 BUN/Creatinine Ratio 12.7 Glucose 229 H Calcium 8.2 L Troponin I 02/18/18 13:30 WBC RBC Hgb Hct MCV MCH MCHC RDW RDW Differential Plt Count MPV Immature Gran % (Auto) Neut % (Auto) Lymph % (Auto) Cotton % (Auto) Eos % (Auto) Baso % (Auto) Absolute Neuts (auto) Absolute Lymphs (auto) Total Counted APTT 35.8 Sodium Potassium Chloride Carbon Dioxide Anion Gap BUN Creatinine Estim Creat Clear Calc Est GFR (MDRD) Af Amer Est GFR (MDRD) Non-Af BUN/Creatinine Ratio Glucose Calcium Troponin I POC Glucose 02/18/18 02/18/18 02/17/18 10:59 06:44 21:35 POC Glucose 157 H 232 H 223 H 02/17/18 16:26 POC Glucose 115 H Medical Necessity - Tobacco Use Smoking Status: Never smoker Assessment/Plan All Active Problems Non-STEMI (non-ST elevated myocardial infarction) (Acute) Coronary artery disease (Acute) Hypertensive urgency (Acute) Chest pain (Acute) 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 S/P revision left total knee arthroplasty femoral and tibial components POD #5 2. Continue Pain Medications: Tylenol and tramadol, pain has been controlled on current regimen 3. DVT Prophylaxis: At this point patient will be on antiplatelet therapy per cardiology I have no issues with loading the patient with Plavix and continuing Plavix daily. In addition I would add baby aspirin twice a day which should give sufficient DVT prophylaxis for his surgery. However of a pulmonary embolus is determined to be the cause of his elevated troponins I would proceed with full on anticoagulation as recommended by the primary service. 4. PT/OT: Weightbearing as tolerated with range of motion as tolerated 5. H & H: Hemoglobin 9.2. Patient is currently asymptomatic at this time. Agree with medicines parameters for transfusion due to patient's previous cardiac history 6. Encouraged Incentive Spirometry 7. Continue doxycycline while following cultures: Currently on doxycycline. Cultures are currently with no growth 8. Continue postoperative medical management per medicine: Appreciate medicine's care of this patient. Patient has been transferred to medicine service. From an orthopedic standpoint he is stable. 9. Disposition: Orthopedically stable, patient continues to have comorbidities that are plan significant role in patient's stay at the hospital. Patient has had elevated blood pressure overnight with confusion and currently has chest pressure. Once patient is medically stable plan will be for discharge home. Plan for workup with EKG per medicine. Appreciate assistance and input for treatment with patient due to his multiple comorbidities. [facility] Office:
[2018-02-18 16:31] LABS: Bedside Glucose 163 mg/dL (70-110)
[2018-02-18] MEDS: QUEtiapine 25 MG Tablet PO (22:22)
[2018-02-18] MEDS: Metoprolol(XL)Succ 25 MG Tablet 12.5 MG PO (22:24)
[2018-02-18] MEDS: Donepezil HCl 5 MG Tablet PO (22:24)
[2018-02-18 22:46] LABS: Bedside Glucose 172 mg/dL (70-110)
[2018-02-19] VITALS (15 sets, daily range): BP systolic 141–158; BP diastolic 64–94; PULSE 68–79; RESP 16–18; TEMP 36.3–37.4; O2SAT 94–98
[2018-02-19] MEDS: Ibuprofen 600 MG Tablet PO ×2 (04:17→11:24)
[2018-02-19] MEDS: levoFLOXacin 750 MG Tablet PO (05:08)
[2018-02-19] MEDS: FLUoxetine 20 MG Capsule PO ×3 (05:08→21:00)
[2018-02-19] MEDS: Gabapentin 300 MG Capsule PO ×3 (05:08→21:00)
[2018-02-19] MEDS: hydrALAZINE 25 MG Tablet PO ×3 (05:09→20:58)
[2018-02-19] MEDS: Acetaminophen 500 MG Tablet 1000 MG PO ×3 (05:10→21:01)
[2018-02-19 06:20] LABS: Absolute Lymphocyte Count 1.25 X10^3/ul (0.83-4.51); Absolute Neutrophil Count 3.7 X10^3/uL (2.0-7.7); Basophil# 0.02 X10^3/uL; Basophil% 0.3 % (0-1); Eosinophils% 3.4 % (0-5); Hematocrit 28.5 % (40-54); Hemoglobin 9.2 g/dl (13.0-16.5); Lymphocyte # 1.25 X10^3/ul (4.0); Lymphocyte % 21.4 % (19-41); Mean Corp Hgb Conc 32.3 g/gl (32-36); Mean Corpuscular Hgb 29.5 pg (27.0-32.0); Mean Corpuscular Volume 91.3 fL (80-94); Mean Platelet Vol. 12.3 fl (6.2-12.0); Monocyte# 0.67 X10^3/uL; Monocyte% 11.5 % (0-10); Neutrophil # 3.71 X10^3/uL (2.7-7.7); Neutrophil % 63.4 % (47-70); Platelet Count 223 K/mm3 (150-450); RBC Distribution Width CV 13.5 % (11.6-14.6); RBC Distribution Width SD 44.7 fl (35.1-43.9); Red Blood Count 3.12 M/mm3 (4.6-6.2); White Blood Count 5.9 K/mm3 (4.4-11.0)
[2018-02-19 06:31] LABS: POSITIVE COUNT NO; POSITIVE DIFFERENTIAL NO; POSITIVE MORPHOLOGY NO
[2018-02-19 06:39] LABS: Anion Gap 9 (5-15); BUN 12 mg/dL (7-18); BUN/Creat Ratio 14.5 RATIO (10-20); Calcium,Total 8.6 mg/dL (8.5-10.1); Chloride 105 mmol/L (98-107); Creatinine, Serum 0.83 mg/dL (0.70-1.30); EST Glomerular Filtration Rate 98 mL/min (>60); Est Glom Filt Rate - Afr Amer 119 mL/min (>60); Estimated Creatinine Clearance 80.74 ml/min; Glucose 188 mg/dL (74-106); Potassium 3.9 mmol/L (3.5-5.1); Sodium Level 141 mmol/L (136-145)
--- NOTE | 2018-02-19 06:53 | PCM.PN.ORT ---
Patient Problems: Active and Suspected Problems Non-STEMI (non-ST elevated myocardial infarction) (Acute) Coronary artery disease (Acute) Subjective: Patient is doing well this morning. No acute events overnight. No chest pain or shortness of breath this morning. He did get up with therapy last evening and states he tolerated it well. Patient is anxious for some news on his most recent cardiac test. They are waiting arrival of previous records for comparison. Depending on what that shows he may need a cardiac catheterization. From an orthopedic standpoint the left leg has been stable. - Physical Exam General: Alert, Oriented x3, Cooperative Extremities: - - Left lower extremity: Dressing is clean dry and intact Sensations intact to light touch saphenous, sural, superficial peroneal, deep peroneal, and tibial distributions Motors intact EHL, DF, PF calves are soft and supple Vital Signs Temp Pulse Resp BP Pulse Ox 97.4 F L 75 16 158/74 H 98 02/19/18 04:10 02/19/18 05:09 02/19/18 04:10 02/19/18 05:09 02/19/18 04:10 Oxygen Delivery Method Room Air Weight: 247 lb 15.968 oz Body Mass Index (BMI) 38.8 Finger Stick Blood Glucose 272 Intake and Output for Last 24 Hours 02/17/18 02/18/18 02/19/18 23:59 23:59 23:59 Intake Total 1807 / 1807 1676.7 / 1676.7 700 / 700 Output Total 300 / 300 Balance 1507 / 1507 1676.7 / 1676.7 700 / 700 Microbiology Past 72 Hours 02/15/18 16:55 Urine Culture - Final Urine Catheter - Catheter Culture exhibits no growth. 02/13/18 14:17 Gram Stain - Final Tissue - Knee Wound Culture - Final No growth aerobically. Anaerobic Culture - Preliminary No growth in 48 hours. 02/13/18 14:17 Gram Stain - Final Tissue - Knee Wound Culture - Final No growth aerobically. Anaerobic Culture - Preliminary No growth in 48 hours. 02/13/18 14:17 Gram Stain - Final Tissue - Knee Wound Culture - Final No growth aerobically. Anaerobic Culture - Preliminary No growth in 48 hours. Laboratory Tests Past 24 Hrs 02/18/18 02/18/18 02/18/18 06:54 06:54 06:54 WBC 7.5 RBC 3.09 L Hgb 9.2 L Hct 28.1 L MCV 90.9 MCH 29.8 MCHC 32.7 RDW 13.4 RDW Differential 44.2 H Plt Count 193 MPV 12.5 H Immature Gran % (Auto) 0.100 Neut % (Auto) 65.1 Lymph % (Auto) 23.6 Sharp % (Auto) 9.9 Eos % (Auto) 1.2 Baso % (Auto) 0.1 Absolute Neuts (auto) 4.9 Absolute Lymphs (auto) 1.77 Total Counted Not Reportable APTT 56.5 H Sodium 138 Potassium 3.7 Chloride 102 Carbon Dioxide 26.0 Anion Gap 10 BUN 11 Creatinine 0.87 Estim Creat Clear Calc 77.03 Est GFR (MDRD) Af Amer 113 Est GFR (MDRD) Non-Af 93 BUN/Creatinine Ratio 12.7 Glucose 229 H Calcium 8.2 L 02/18/18 02/19/18 02/19/18 13:30 05:35 05:35 WBC 5.9 RBC 3.12 L Hgb 9.2 L Hct 28.5 L MCV 91.3 MCH 29.5 MCHC 32.3 RDW 13.5 RDW Differential 44.7 H Plt Count 223 MPV 12.3 H Immature Gran % (Auto) 0.000 Neut % (Auto) 63.4 Lymph % (Auto) 21.4 Sharp % (Auto) 11.5 H Eos % (Auto) 3.4 Baso % (Auto) 0.3 Absolute Neuts (auto) 3.7 Absolute Lymphs (auto) 1.25 Total Counted Not Reportable APTT 35.8 Sodium 141 Potassium 3.9 Chloride 105 Carbon Dioxide 27.0 Anion Gap 9 BUN 12 Creatinine 0.83 Estim Creat Clear Calc 80.74 Est GFR (MDRD) Af Amer 119 Est GFR (MDRD) Non-Af 98 BUN/Creatinine Ratio 14.5 Glucose 188 H Calcium 8.6 POC Glucose 02/18/18 02/18/18 02/18/18 22:18 16:13 10:59 POC Glucose 172 H 163 H 157 H 02/18/18 06:44 POC Glucose 232 H Medical Necessity - Tobacco Use Smoking Status: Never smoker Assessment/Plan All Active Problems Non-STEMI (non-ST elevated myocardial infarction) (Acute) Coronary artery disease (Acute) Hypertensive urgency (Acute) Chest pain (Acute) 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 S/P revision left total knee arthroplasty femoral and tibial components POD #6 2. Continue Pain Medications: Tylenol and tramadol, pain has been controlled on current regimen 3. DVT Prophylaxis: At this point patient will be on antiplatelet therapy per cardiology I have no issues with loading the patient with Plavix and continuing Plavix daily. In addition I would add baby aspirin twice a day which should give sufficient DVT prophylaxis for his surgery. However of a pulmonary embolus is determined to be the cause of his elevated troponins I would proceed with full on anticoagulation as recommended by the primary service for treatment of DVT and PE. 4. PT/OT: Weightbearing as tolerated with range of motion as tolerated 5. H & H: Hemoglobin 9.2 and stable today. Patient is currently asymptomatic at this time. Agree with medicines parameters for transfusion due to patient's previous cardiac history 6. Encouraged Incentive Spirometry 7. Continue doxycycline while following cultures: Currently on doxycycline. Cultures are currently with no growth okay to discontinue doxycycline tomorrow if cultures remain negative 8. Continue postoperative medical management per medicine: Appreciate medicine's care of this patient. Patient has been transferred to medicine service. From an orthopedic standpoint he is stable. 9. Disposition: Orthopedically stable, patient continues to have comorbidities that are playing significant role in patient's stay at the hospital. There is still a possible cardiac catheterization pending. We will continue to follow patient along this admission but once he is medically stable and ready for discharge orthopedic issue should not hold up discharge. [facility] Office:
[2018-02-19] MEDS: Insulin Lispro 100 UNIT/ML INSULN.PEN SC ×4 (08:59→20:59)
[2018-02-19] MEDS: Insulin Lispro 100 UNIT/ML INSULN.PEN 8 UNIT SQ ×3 (09:00→16:41)
[2018-02-19] MEDS: Aspirin E.C. 81 MG Tablet PO (09:01)
[2018-02-19] MEDS: Multivitamins,Therapeutic Tablet 1 TABLET PO (09:01)
[2018-02-19] MEDS: Glucerna Shake 120 ML LIQUID PO ×3 (09:01→16:43)
[2018-02-19] MEDS: Clopidogrel Bisulfate 75 MG Tablet PO (09:02)
[2018-02-19] MEDS: Doxycycline 100 MG CAPSULE PO ×2 (09:02→20:59)
[2018-02-19] MEDS: Famotidine 20 MG Tablet PO (09:02)
[2018-02-19] MEDS: Gemfibrozil 600 MG Tablet PO ×2 (09:02→16:42)
[2018-02-19] MEDS: buPROPion (XL) 300 MG TABLET.XL PO (09:04)
[2018-02-19] MEDS: Lisinopril 20 MG Tablet PO (09:05)
--- NOTE | 2018-02-19 09:18 | PN.CARD_ITS ---
Subjectve: Patient doing well this morning. Ambulated to the nurses station yesterday without difficulty. Patient did have some mild chest pain when he returned to his bed. Off heparin and IV nitro times 24 hours without any difficulty. Telemetry negative. Still awaiting catheterization film from [facility]. Objective: Vital Signs Temp Pulse Resp BP Pulse Ox 97.4 F L 68 16 158/74 H 98 02/19/18 04:10 02/19/18 08:00 02/19/18 04:10 02/19/18 05:09 02/19/18 04:10 Oxygen Delivery Method Room Air Weight: 247 lb 15.968 oz Body Mass Index (BMI) 38.8 Finger Stick Blood Glucose 272 Intake and Output for Last 24 Hours 02/17/18 02/18/18 02/19/18 23:59 23:59 23:59 Intake Total 1807 / 1807 1676.7 / 1676.7 700 / 700 Output Total 300 / 300 Balance 1507 / 1507 1676.7 / 1676.7 700 / 700 General: Awake, Alert, Oriented x 3 HEENT: PERRL, EOMI, Sclera Non Icteric Neck: Supple, Good ROM, No Lymph Node Enlargement Lungs: Clear to auscultation Cardiovascular: Regular Rhythm, Normal S1, Normal S2, No Murmurs, No Rubs, No Gallops Vascular: No Carotid Bruits, Normal Femoral Pulses, Normal Radial Pulses, Normal Dorsalis Pedal Pulse, Normal Posterior Tibial Pulses Abdomen: Bowel Sounds Present, Soft, Non Tender, No HSM, No Organomegaly Extremities: No Cyanosis, No Clubbing, No edema Neurological: No Focal Motor or Sensory Deficit 02/18/18 13:30: APTT 35.8 02/19/18 05:35: WBC 5.9, RBC 3.12 L, Hgb 9.2 L, Hct 28.5 L, MCV 91.3, MCH 29.5, MCHC 32.3, RDW 13.5, RDW Differential 44.7 H, Plt Count 223, MPV 12.3 H, Immature Gran % (Auto) 0.000, Neut % (Auto) 63.4, Lymph % (Auto) 21.4, Wilkin % (Auto) 11.5 H, Eos % (Auto) 3.4, Baso % (Auto) 0.3, Absolute Neuts (auto) 3.7, Total Counted Not Reportable 02/19/18 05:35: Sodium 141, Potassium 3.9, Chloride 105, Carbon Dioxide 27.0, Anion Gap 9, BUN 12, Creatinine 0.83, Est GFR (MDRD) Af Amer 119, Est GFR (MDRD) Non-Af 98, BUN/Creatinine Ratio 14.5, Glucose 188 H, Calcium 8.6 Rhythm: EKG: ECHO: Stress Test: Cardiac Cath: PCI: CT Surgery: Holter monitor: EPS: PPM: CXR: Chest CT Scan: Medical Necessity - Tobacco Use Smoking Status: Never smoker Assessment/Plan 1. Coronary artery disease: The patient has an extensive coronary history including 2 bypass surgeries, the most recent of which was in 2014, repeat catheterization in September 2017 however no mention of his bypass grafts were delineated in his report. The patient was found to have significant LAD and left circumflex disease and had a flow wire evaluation of his left circumflex which was reportedly 0.95. No intervention was done at that time in order to facilitate the patient getting his knee surgery. Subsequent to his knee surgery the patient had a hypertensive urgency episode with a blood pressure of 199/106, possibly due to pain and/or limitations with giving him his pills or Imdur. His initial troponin was 9.2 superimposed upon a negative EKG for acute changes. Troponin is trending downwards to 6.9. Would recommend continuing baby aspirin 81 mg p.o. daily, loading him with Plavix 300 mg p.o. x1 followed by 75 mg/day if okay with Dr. Wilburn. Recommend discontinuation of his IV heparin given his recent knee surgery and the fact that his troponin is going down and he said no further chest pain with optimal medical management. In addition I recommend that we obtain his catheterization film from September 2017 to fully evaluate his coronary anatomy to determine whether he requires a repeat catheterization and whether there be any benefit to doing so. Catheterization film was supposed to be lead embedded software engineer to over from [facility] today. I will review it when it arrives. Depending upon the catheterization findings we will determine whether we proceed with catheterization tomorrow morning. If the patient has recurrent anginal symptoms despite adequate medical therapy would recommend catheterization prior to receiving his cath film. We will discontinue his nitroglycerin drip, and restart him on his Imdur 90 mg p.o. daily, restarting his Toprol XL 12.5 mg nightly, continuing lisinopril 20 mg a day, in keeping his systolic blood pressure less than 140 in order to avoid demand ischemia. Would His echocardiogram done today demonstrates mild LV dysfunction with an EF of 50% with an RVSP of 45 mmHg. Also in the differential is possible pulmonary emboli as a result of his recent surgery however he does not appear to be tachypneic or short of breath as of this writing. As the treatment is the same with IV heparin, would not recommend exposing the patient to contrast dye in order to evaluate for pulmonary embolism. 2. Hyperlipidemia: The patient apparently is unable to tolerate statins although he has cardiovascular and peripheral vascular disease. Recommend obtaining a fasting lipid profile, and then initiating gemfibrozil 600 mg p.o. twice daily for aggressive LDL reduction. 3. Discussed with Dr. Castro. Thank you very much for the opportunity to participate in the cardiac care of your patient. Would not recommend discharge home until his catheterization film arise for review by myself, as well as optimization of his blood pressure and ensuring that his left knee has no hematoma present. Discussed with Dr. quintana this morning. Code Visit Inpatient E&M: 69629 Subs Hosp L2
[2018-02-19] MEDS: buPROPion (SR) 100 MG TABLET.SA PO (11:28)
[2018-02-19 11:56] LABS: Bedside Glucose 239 mg/dL (70-110)
--- NOTE | 2018-02-19 12:15 | PCM.PN.HOSP ---
Patient Problems: Active and Suspected Problems Non-STEMI (non-ST elevated myocardial infarction) (Acute) Coronary artery disease (Acute) Subjective: Patient seen and examined. He has no complaints. He denies any fever chills, any cough or chest pain, shortness of breath or abdominal pain, any diarrhea vomiting. Review of systems otherwise negative. Labs and vitals reviewed. Vitals/I&O's: Vital Signs Temp Pulse Resp BP Pulse Ox 98.1 F 73 16 143/64 H 98 02/19/18 10:10 02/19/18 11:45 02/19/18 10:10 02/19/18 10:10 02/19/18 10:10 Oxygen Delivery Method Room Air Weight: 247 lb 15.968 oz Body Mass Index (BMI) 38.8 Finger Stick Blood Glucose 272 Intake and Output for Last 24 Hours 02/17/18 02/18/18 02/19/18 23:59 23:59 23:59 Intake Total 1807 / 1807 1676.7 / 1676.7 1300 / 1300 Output Total 300 / 300 Balance 1507 / 1507 1676.7 / 1676.7 1300 / 1300 General: Alert, Oriented x3, Cooperative, No apparent distress HEENT: Atraumatic, PERRLA, EOMI, Normocephalic Oral: Moist Mucosa Neck: Supple, No JVD, Negative Carotid Bruits, Negative Hepatojugular Reflux, No Nodes Lungs: Clear to auscultation, Normal air movement, No rhonchi, No wheeze, No rales Cardiovascular: Regular rate, Regular Rhythm, Normal S1, Normal S2, No murmurs Abdomen: Bowel Sounds Present, Soft, Non Tender, Non-Distended, No Hepato-splenomegaly Extremities: No clubbing, No cyanosis, No edema, Capillary Refill Less than 3 Seconds, - - no tenderness on palpation of left knee Skin: No rashes, No breakdown Musculoskeletal: No Tenderness to Palpation of Joints or Extremities Lymphatic: No Cervical, Supraclavicular, or Inguinal Adenopathy Neurological: Cranial nerves II-XII grossly intact, Neuro grossly intact Psych/Mental Status: Normal Affect, Appropriate, Alert and oriented to time, place, person, mood and affect Microbiology Past 72 Hours 02/13/18 14:17 Tissue - Knee Gram Stain - Final 02/13/18 14:17 Tissue - Knee Wound Culture - Final No growth aerobically. 02/13/18 14:17 Tissue - Knee Anaerobic Culture - Final No growth in 5 days. 02/13/18 14:17 Tissue - Knee Gram Stain - Final 02/13/18 14:17 Tissue - Knee Wound Culture - Final No growth aerobically. 02/13/18 14:17 Tissue - Knee Anaerobic Culture - Final No growth in 5 days. 02/13/18 14:17 Tissue - Knee Gram Stain - Final 02/13/18 14:17 Tissue - Knee Wound Culture - Final No growth aerobically. 02/13/18 14:17 Tissue - Knee Anaerobic Culture - Final No growth in 5 days. 02/15/18 16:55 Urine Catheter - Catheter Urine Culture - Final Culture exhibits no growth. Laboratory Results 02/18/18 13:30: APTT 35.8 02/18/18 16:13: POC Glucose 163 H 02/18/18 22:18: POC Glucose 172 H 02/19/18 05:35: WBC 5.9, RBC 3.12 L, Hgb 9.2 L, Hct 28.5 L, MCV 91.3, MCH 29.5, MCHC 32.3, RDW 13.5, RDW Differential 44.7 H, Plt Count 223, MPV 12.3 H, Immature Gran % (Auto) 0.000, Neut % (Auto) 63.4, Lymph % (Auto) 21.4, [place] % (Auto) 11.5 H, Eos % (Auto) 3.4, Baso % (Auto) 0.3, Absolute Neuts (auto) 3.7, Absolute Lymphs (auto) 1.25, Total Counted Not Reportable 02/19/18 05:35: Sodium 141, Potassium 3.9, Chloride 105, Carbon Dioxide 27.0, Anion Gap 9, BUN 12, Creatinine 0.83, Estim Creat Clear Calc 80.74, Est GFR (MDRD) Af Amer 119, Est GFR (MDRD) Non-Af 98, BUN/Creatinine Ratio 14.5, Glucose 188 H, Calcium 8.6 02/19/18 11:27: POC Glucose 239 H Current Medications Acetaminophen (Tylenol) 1,000 mg PO Q8 [facility] Last Admin: 02/19/18 05:10 Dose: 1,000 mg Albuterol Sulfate (Ventolin Aerosols) 2.5 mg INHALATION Q2H PRN PRN PRN Reason: SHORTNESS OF BREATH Albuterol/Ipratropium (Duoneb) 3 ml INHALATION Q6HWA.RT [facility] Last Admin: 02/19/18 07:12 Dose: Not Given Aspirin (Ecotrin) 81 mg PO DAILYCM [facility] Last Admin: 02/19/18 09:01 Dose: 81 mg Bupropion HCl (Wellbutrin Sr (100mg Tablets)) 100 mg PO LUNCH [facility] Last Admin: 02/19/18 11:28 Dose: 100 mg Bupropion HCl (Wellbutrin Xl) 300 mg PO DAILY [facility] Last Admin: 02/19/18 09:04 Dose: 300 mg Clopidogrel Bisulfate (Plavix) 75 mg PO DAILY [facility] Last Admin: 02/19/18 09:02 Dose: 75 mg Dextrose (D50w Syringe) 0 gm IV X1 PRN; Protocol PRN Reason: Hypoglycemia Donepezil HCl (Aricept) 5 mg PO QHS [facility] Last Admin: 02/18/18 22:24 Dose: 5 mg Doxycycline Monohydrate (Doxycycline) 100 mg PO BID [facility] Stop: 02/20/18 22:01 Last Admin: 02/19/18 09:02 Dose: 100 mg Famotidine (Pepcid) 20 mg PO DAILY [facility] Last Admin: 02/19/18 09:02 Dose: 20 mg Fluoxetine HCl (Prozac) 20 mg PO TID [facility] Last Admin: 02/19/18 05:08 Dose: 20 mg Gabapentin (Neurontin) 300 mg PO TID [facility] Last Admin: 02/19/18 05:08 Dose: 300 mg [facility] Last Admin: 02/19/18 09:02 Dose: 600 mg Glucagon () 1 mg IM .X1 PRN PRN Reason: Hypoglycemia Heparin Sodium (Porcine) (Heparin Na) 0 unit IV UD PRN; Protocol Hydralazine HCl (Apresoline Iv) 10 mg IV Q4H PRN PRN PRN Reason: SBP>180 mmhg Hydralazine HCl (Apresoline) 25 mg PO TID [facility] Last Admin: 02/19/18 05:09 Dose: 25 mg Ibuprofen (Motrin) 600 mg PO Q8H PRN PRN PRN Reason: MILD PAIN (1-3/10) Last Admin: 02/19/18 11:24 Dose: 600 mg Insulin Glargine (Lantus (Bkc)) 25 units SC QHS [facility] Last Admin: 02/18/18 22:26 Dose: 25 units Insulin Human Lispro (Humalog Kwikpen (Bkc)) 0 unit SC ACHS [facility]; Protocol Last Admin: 02/19/18 11:27 Dose: 4 units Insulin Human Lispro (Humalog Kwikpen (Bkc)) 8 unit SQ BREAKFAST [facility] Last Admin: 02/19/18 09:00 Dose: 8 u Insulin Human Lispro (Humalog Kwikpen (Bkc)) 8 unit SQ DINNER [facility] Last Admin: 02/18/18 16:20 Dose: 8 u Insulin Human Lispro (Humalog Kwikpen (Bkc)) 8 unit SQ LUNCH [facility] Last Admin: 02/19/18 11:27 Dose: 8 u Levofloxacin (Levaquin Tablet) 750 mg PO DAILY@0600 [facility] Last Admin: 02/19/18 05:08 Dose: 750 mg Lisinopril (Zestril) 20 mg PO DAILY [facility] Last Admin: 02/19/18 09:05 Dose: 20 mg Metoprolol Succinate (Toprol Xl (Beta Lobo)) 12.5 mg PO QHS [facility] Last Admin: 02/18/18 22:24 Dose: 12.5 mg Morphine Sulfate () 2 - 4 mg IV Q2H PRN PRN PRN Reason: SEVERE PAIN (6-10/10) Multivitamins (Multivitamin) 1 tablet PO DAILY@0800 [facility] Last Admin: 02/19/18 09:01 Dose: 1 tablet Nutritional Formula (Lactose Free) (Glucerna Shake) 120 ml PO TIDCM [facility] Last Admin: 02/19/18 11:28 Dose: 120 ml Ondansetron HCl (Zofran) 4 mg IV Q8H PRN PRN PRN Reason: NAUSEA Promethazine HCl (Phenergan) 12.5 mg IM Q6H PRN PRN; Protocol PRN Reason: NAUSEA/VOMITING Quetiapine Fumarate (Seroquel) 25 mg PO QHS [facility] Last Admin: 02/18/18 22:22 Dose: 25 mg Senna/Docusate Sodium (Senokot-S, Glenis-Colace) 2 tablet PO BID [facility] Last Admin: 02/19/18 09:05 Dose: Not Given Sodium Chloride () 5 - 30 ml IV UD PRN PRN Reason: SALINE FLUSH Last Admin: 02/18/18 11:03 Dose: 10 ml Medical Necessity - Tobacco Use Smoking Status: Never smoker Assessment/Plan All Active Problems Non-STEMI (non-ST elevated myocardial infarction) (Acute) Coronary artery disease (Acute) Hypertensive urgency (Acute) Chest pain (Acute) 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 NSTEMI Chest pain is resolved. heparin drip and nitro drip stopped ~ 24 hours ago. Cardiology on board. Does have a history of CAD and had a repeat cath in September 2017 which found significant LAD and left circumflex disease as well as a flow wire evaluation of his left circumflex which was reportedly 0.95. No intervention was done at that time to facilitate him getting his knee surgery. To continue baby aspirin 81 mg daily and Plavix 75 mg daily and statin per cardiology, awaiting his cardiac cath disc from [facility] to decide on whether to cath him or otherwise. on Imdur and Toprol as well as lisinopril. 2D echocardiogram showed moderate left ventricular dysfunction with EF of 50% and RVSP of 45 mmHg. 2. CAD s/p CABG x 2 Had recent cardiac cath as mentioned on . Currently on Imdur, statin, aspirin, cilostazol, Plavix. Cardiology on board. 3. s/p revision of left total knee replacement today is POD 3. stable orthopedics on board pain well controlled 4. Hypertension Had hypertensive urgency after cath. This is now resolved and blood pressure to 120s-150s systolic. On lisinopril 20mg daily and Toprol XL 12.5mg daily as well as hydralazine 25 mg 3 times daily. 5. Post op pneumonia developed pneumonia less than 48 hours after admission. Was started on IV ceftriaxone and azithromycin. Currently stable. Lungs are clear to auscultation. transition to p.o. Levaquin 750 mg daily for total 5-day course. 6. Acute metabolic encephalopathy was likely medication induced- narcotics resolved. is AO x 3 on seroquel and neurontin 7. Acute blood loss anemia likely due to surgery. Hb is 9.2 today. 8. History of DVT: was on xarelto. This is currently on hold pending possible cath tomorrow. 9. Diabetes mellitus: On metformin and insulin sliding scale. Also on Lantus 25 g nightly. Metformin on hold pending possible cath. 10. Dementia: on donepezil. DVT prophylaxis: was started on xarelto, but this was stopped when heparin drip was started. Now heparin drip dced; xarelto remains on hold as cardiology hasnt conclusively decided about whether to do a cath or not. on aspirin. Currently on aspirin SCDs Code Visit Inpatient E&M: [id number] [facility] L[facility]
--- NOTE | 2018-02-19 12:19 | PN_ITS ---
Patient Problems: Active and Suspected Problems Non-STEMI (non-ST elevated myocardial infarction) (Acute) Coronary artery disease (Acute) Subjective: Patient seen and examined. He has no complaints. He denies any fever chills, any cough or chest pain, shortness of breath or abdominal pain, any diarrhea vomiting. Review of systems otherwise negative. Labs and vitals reviewed. Vitals/I&O's: Vital Signs Temp Pulse Resp BP Pulse Ox 98.1 F 73 16 143/64 H 98 02/19/18 10:10 02/19/18 11:45 02/19/18 10:10 02/19/18 10:10 02/19/18 10:10 Oxygen Delivery Method Room Air Weight: 247 lb 15.968 oz Body Mass Index (BMI) 38.8 Finger Stick Blood Glucose 272 Intake and Output for Last 24 Hours 02/17/18 02/18/18 02/19/18 23:59 23:59 23:59 Intake Total 1807 / 1807 1676.7 / 1676.7 1300 / 1300 Output Total 300 / 300 Balance 1507 / 1507 1676.7 / 1676.7 1300 / 1300 General: Alert, Oriented x3, Cooperative, No apparent distress HEENT: Atraumatic, PERRLA, EOMI, Normocephalic Oral: Moist Mucosa Neck: Supple, No JVD, Negative Carotid Bruits, Negative Hepatojugular Reflux, No Nodes Lungs: Clear to auscultation, Normal air movement, No rhonchi, No wheeze, No rales Cardiovascular: Regular rate, Regular Rhythm, Normal S1, Normal S2, No murmurs Abdomen: Bowel Sounds Present, Soft, Non Tender, Non-Distended, No Hepato- splenomegaly Extremities: No clubbing, No cyanosis, No edema, Capillary Refill Less than 3 Seconds, - - no tenderness on palpation of left knee Skin: No rashes, No breakdown Musculoskeletal: No Tenderness to Palpation of Joints or Extremities Lymphatic: No Cervical, Supraclavicular, or Inguinal Adenopathy Neurological: Cranial nerves II-XII grossly intact, Neuro grossly intact Psych/Mental Status: Normal Affect, Appropriate, Alert and oriented to time, place, person, mood and affect Microbiology Past 72 Hours 02/13/18 14:17 Tissue - Knee Gram Stain - Final 02/13/18 14:17 Tissue - Knee Wound Culture - Final No growth aerobically. 02/13/18 14:17 Tissue - Knee Anaerobic Culture - Final No growth in 5 days. 02/13/18 14:17 Tissue - Knee Gram Stain - Final 02/13/18 14:17 Tissue - Knee Wound Culture - Final No growth aerobically. 02/13/18 14:17 Tissue - Knee Anaerobic Culture - Final No growth in 5 days. 02/13/18 14:17 Tissue - Knee Gram Stain - Final 02/13/18 14:17 Tissue - Knee Wound Culture - Final No growth aerobically. 02/13/18 14:17 Tissue - Knee Anaerobic Culture - Final No growth in 5 days. 02/15/18 16:55 Urine Catheter - Catheter Urine Culture - Final Culture exhibits no growth. Laboratory Results 02/18/18 13:30: APTT 35.8 02/18/18 16:13: POC Glucose 163 H 02/18/18 22:18: POC Glucose 172 H 02/19/18 05:35: WBC 5.9, RBC 3.12 L, Hgb 9.2 L, Hct 28.5 L, MCV 91.3, MCH 29.5, MCHC 32.3, RDW 13.5, RDW Differential 44.7 H, Plt Count 223, MPV 12.3 H, Immature Gran % (Auto) 0.000, Neut % (Auto) 63.4, Lymph % (Auto) 21.4, [place] % (Auto) 11.5 H, Eos % (Auto) 3.4, Baso % (Auto) 0.3, Absolute Neuts (auto) 3.7, Absolute Lymphs (auto) 1.25, Total Counted Not Reportable 02/19/18 05:35: Sodium 141, Potassium 3.9, Chloride 105, Carbon Dioxide 27.0, Anion Gap 9, BUN 12, Creatinine 0.83, Estim Creat Clear Calc 80.74, Est GFR (MDRD) Af Amer 119, Est GFR (MDRD) Non-Af 98, BUN/Creatinine Ratio 14.5, Glucose 188 H, Calcium 8.6 02/19/18 11:27: POC Glucose 239 H Current Medications Acetaminophen (Tylenol) 1,000 mg PO Q8 [facility] Last Admin: 02/19/18 05:10 Dose: 1,000 mg Albuterol Sulfate (Ventolin Aerosols) 2.5 mg INHALATION Q2H PRN PRN PRN Reason: SHORTNESS OF BREATH Albuterol/Ipratropium (Duoneb) 3 ml INHALATION Q6HWA.RT [facility] Last Admin: 02/19/18 07:12 Dose: Not Given Aspirin (Ecotrin) 81 mg PO DAILYCM [facility] Last Admin: 02/19/18 09:01 Dose: 81 mg Bupropion HCl (Wellbutrin Sr (100mg Tablets)) 100 mg PO LUNCH [facility] Last Admin: 02/19/18 11:28 Dose: 100 mg Bupropion HCl (Wellbutrin Xl) 300 mg PO DAILY [facility] Last Admin: 02/19/18 09:04 Dose: 300 mg Clopidogrel Bisulfate (Plavix) 75 mg PO DAILY [facility] Last Admin: 02/19/18 09:02 Dose: 75 mg Dextrose (D50w Syringe) 0 gm IV X1 PRN; Protocol PRN Reason: Hypoglycemia Donepezil HCl (Aricept) 5 mg PO QHS [facility] Last Admin: 02/18/18 22:24 Dose: 5 mg Doxycycline Monohydrate (Doxycycline) 100 mg PO BID [facility] Stop: 02/20/18 22:01 Last Admin: 02/19/18 09:02 Dose: 100 mg Famotidine (Pepcid) 20 mg PO DAILY [facility] Last Admin: 02/19/18 09:02 Dose: 20 mg Fluoxetine HCl (Prozac) 20 mg PO TID [facility] Last Admin: 02/19/18 05:08 Dose: 20 mg Gabapentin (Neurontin) 300 mg PO TID [facility] Last Admin: 02/19/18 05:08 Dose: 300 mg [facility] ([facility]) [facility] Last Admin: 02/19/18 09:02 Dose: 600 mg Glucagon () 1 mg IM .X1 PRN PRN Reason: Hypoglycemia Heparin Sodium (Porcine) (Heparin Na) 0 unit IV UD PRN; Protocol Hydralazine HCl (Apresoline Iv) 10 mg IV Q4H PRN PRN PRN Reason: SBP>180 mmhg Hydralazine HCl (Apresoline) 25 mg PO TID [facility] Last Admin: 02/19/18 05:09 Dose: 25 mg Ibuprofen (Motrin) 600 mg PO Q8H PRN PRN PRN Reason: MILD PAIN (1-3/10) Last Admin: 02/19/18 11:24 Dose: 600 mg Insulin Glargine (Lantus (Bkc)) 25 units SC QHS [facility] Last Admin: 02/18/18 22:26 Dose: 25 units Insulin Human Lispro (Humalog Kwikpen (Bkc)) 0 unit SC ACHS [facility]; Protocol Last Admin: 02/19/18 11:27 Dose: 4 units Insulin Human Lispro (Humalog Kwikpen (Bkc)) 8 unit SQ BREAKFAST [facility] Last Admin: 02/19/18 09:00 Dose: 8 u Insulin Human Lispro (Humalog Kwikpen (Bkc)) 8 unit SQ DINNER [facility] Last Admin: 02/18/18 16:20 Dose: 8 u Insulin Human Lispro (Humalog Kwikpen (Bkc)) 8 unit SQ LUNCH [facility] Last Admin: 02/19/18 11:27 Dose: 8 u Levofloxacin (Levaquin Tablet) 750 mg PO DAILY@0600 [facility] Last Admin: 02/19/18 05:08 Dose: 750 mg Lisinopril (Zestril) 20 mg PO DAILY [facility] Last Admin: 02/19/18 09:05 Dose: 20 mg Metoprolol Succinate (Toprol Xl (Beta Lobo)) 12.5 mg PO QHS [facility] Last Admin: 02/18/18 22:24 Dose: 12.5 mg Morphine Sulfate () 2 - 4 mg IV Q2H PRN PRN PRN Reason: SEVERE PAIN (6-10/10) Multivitamins (Multivitamin) 1 tablet PO DAILY@0800 [facility] Last Admin: 02/19/18 09:01 Dose: 1 tablet Nutritional Formula (Lactose Free) (Glucerna Shake) 120 ml PO TIDCM [facility] Last Admin: 02/19/18 11:28 Dose: 120 ml Ondansetron HCl (Zofran) 4 mg IV Q8H PRN PRN PRN Reason: NAUSEA Promethazine HCl (Phenergan) 12.5 mg IM Q6H PRN PRN; Protocol PRN Reason: NAUSEA/VOMITING Quetiapine Fumarate (Seroquel) 25 mg PO QHS [facility] Last Admin: 02/18/18 22:22 Dose: 25 mg Senna/Docusate Sodium (Senokot-S, Glenis-Colace) 2 tablet PO BID [facility] Last Admin: 02/19/18 09:05 Dose: Not Given Sodium Chloride () 5 - 30 ml IV UD PRN PRN Reason: SALINE FLUSH Last Admin: 02/18/18 11:03 Dose: 10 ml Medical Necessity - Tobacco Use Smoking Status: Never smoker Assessment/Plan All Active Problems Non-STEMI (non-ST elevated myocardial infarction) (Acute) Coronary artery disease (Acute) Hypertensive urgency (Acute) Chest pain (Acute) 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 NSTEMI * * Chest pain is resolved. heparin drip and nitro drip stopped ~ 24 hours ago. * Cardiology on board. * Does have a history of CAD and had a repeat cath in September 2017 which found significant LAD and left circumflex disease as well as a flow wire evaluation of his left circumflex which was reportedly 0.95. No intervention was done at that time to facilitate him getting his knee surgery. * To continue baby aspirin 81 mg daily and Plavix 75 mg daily and statin * per cardiology, awaiting his cardiac cath disc from [facility] to decide on whether to cath him or otherwise. * on Imdur and Toprol as well as lisinopril. * 2D echocardiogram showed moderate left ventricular dysfunction with EF of 50% and RVSP of 45 mmHg. * 2. CAD s/p CABG x 2 * Had recent cardiac cath as mentioned on . * Currently on Imdur, statin, aspirin, cilostazol, Plavix. * Cardiology on board. * 3. s/p revision of left total knee replacement * today is POD 3. stable * orthopedics on board * pain well controlled * 4. Hypertension * Had hypertensive urgency after cath. This is now resolved and blood pressure to 120s-150s systolic. * On lisinopril 20mg daily and Toprol XL 12.5mg daily as well as hydralazine 25 mg 3 times daily. * 5. Post op pneumonia * developed pneumonia less than 48 hours after admission. Was started on IV ceftriaxone and azithromycin. * Currently stable. Lungs are clear to auscultation. transition to p.o. Levaquin 750 mg daily for total 5-day course. * 6. Acute metabolic encephalopathy * was likely medication induced- narcotics * resolved. is AO x 3 * on seroquel and neurontin * * 7. Acute blood loss anemia * likely due to surgery. Hb is 9.2 today. * 8. History of DVT: was on xarelto. This is currently on hold pending possible ca th tomorrow. 9. Diabetes mellitus: On metformin and insulin sliding scale. Also on Lantus 25 g nightly. Metformin on hold pending possible cath. 10. Dementia: on donepezil. DVT prophylaxis: * was started on xarelto, but this was stopped when heparin drip was started. * Now heparin drip dced; xarelto remains on hold as cardiology hasnt conclusively decided about whether to do a cath or not. * on aspirin. * Currently on aspirin * SCDs Code Visit Inpatient E&M: [id number] [facility] Hosp L3
[2018-02-19 16:46] LABS: Bedside Glucose 186 mg/dL (70-110)
[2018-02-19 17:10] LABS: Bedside Glucose 151 mg/dL (70-110)
[2018-02-19] MEDS: QUEtiapine 25 MG Tablet PO (20:58)
[2018-02-19] MEDS: Donepezil HCl 5 MG Tablet PO (20:59)
[2018-02-19] MEDS: Metoprolol(XL)Succ 25 MG Tablet 12.5 MG PO (21:01)
[2018-02-19 23:11] LABS: Bedside Glucose 197 mg/dL (70-110)
[2018-02-20] VITALS (17 sets, daily range): BP systolic 147–190; BP diastolic 68–94; PULSE 61–75; RESP 16–18; TEMP 36.7–37.5; O2SAT 93–97
[2018-02-20] MEDS: Ibuprofen 600 MG Tablet PO ×2 (04:53→14:38)
[2018-02-20 05:10] LABS: Absolute Neutrophil Count 3.9 X10^3/uL (2.0-7.7); Basophil# 0.03 X10^3/uL; Basophil% 0.5 % (0-1); Eosinophil# 0.29 X10^3/uL; Eosinophils% 4.4 % (0-5); Hematocrit 31.8 % (40-54); Hemoglobin 10.4 g/dl (13.0-16.5); Lymphocyte % 24.5 % (19-41); Mean Corp Hgb Conc 32.7 g/gl (32-36); Mean Corpuscular Hgb 30.4 pg (27.0-32.0); Mean Platelet Vol. 12.5 fl (6.2-12.0); Monocyte# 0.68 X10^3/uL; Monocyte% 10.4 % (0-10); Neutrophil % 59.9 % (47-70); Platelet Count 267 K/mm3 (150-450); RBC Distribution Width CV 13.5 % (11.6-14.6); RBC Distribution Width SD 44.4 fl (35.1-43.9); Red Blood Count 3.42 M/mm3 (4.6-6.2); White Blood Count 6.5 K/mm3 (4.4-11.0)
[2018-02-20 05:17] LABS: International Normalized Ratio 0.9; Prothrombin Time (Protime)PT. 12.4 SECONDS (11.7-14.9)
[2018-02-20 05:18] LABS: Partial Thromboplast Time 34.4 Seconds (24.1-36.2)
[2018-02-20 05:32] LABS: Anion Gap 10 (5-15); BUN 13 mg/dL (7-18); BUN/Creat Ratio 12.6 RATIO (10-20); Calcium,Total 9.1 mg/dL (8.5-10.1); Chloride 103 mmol/L (98-107); Creatinine, Serum 1.03 mg/dL (0.70-1.30); EST Glomerular Filtration Rate 76 mL/min (>60); Est Glom Filt Rate - Afr Amer 92 mL/min (>60); Estimated Creatinine Clearance 65.07 ml/min; Glucose 312 mg/dL (74-106); Sodium Level 141 mmol/L (136-145)
[2018-02-20 05:38] LABS: POSITIVE COUNT NO; POSITIVE DIFFERENTIAL NO; POSITIVE MORPHOLOGY NO
--- NOTE | 2018-02-20 05:55 | EKG12_ITS ---
Test Reason : AM EKG Blood Pressure : / mmHG Vent. Rate : 071 BPM Atrial Rate : 071 BPM P-R Int : 144 ms QRS Dur : 102 ms QT Int : 412 ms P-R-T Axes : 020 011 056 degrees QTc Int : 447 ms Normal sinus rhythm Incomplete right bundle branch block Borderline ECG When compared with ECG of 17-FEB-2018 04:52, MANUAL COMPARISON REQUIRED, DATA IS UNCONFIRMED Confirmed by JAYDA STODDARD, MARIANNA ([id number]), food editor ANNA GLASGOW ([id number]) on 02/26/2018 2:25:10 PM Referred By: Rogelio Seaman Confirmed By:MARIANNA MONTELONGO MD
[2018-02-20] MEDS: Acetaminophen 500 MG Tablet 1000 MG PO ×2 (06:45→09:04)
[2018-02-20] MEDS: Clopidogrel Bisulfate 75 MG Tablet PO (06:45)
[2018-02-20] MEDS: Gabapentin 300 MG Capsule PO ×2 (06:46→14:25)
[2018-02-20] MEDS: hydrALAZINE 25 MG Tablet PO ×2 (06:46→14:24)
[2018-02-20] MEDS: Aspirin E.C. 81 MG Tablet PO (06:46)
[2018-02-20] MEDS: 0.9% Normal Saline 1,000 ML 15 ML IV (06:46)
[2018-02-20] MEDS: FLUoxetine 20 MG Capsule PO ×2 (06:46→14:24)
[2018-02-20] MEDS: levoFLOXacin 750 MG Tablet PO (06:46)
[2018-02-20] MEDS: Gemfibrozil 600 MG Tablet PO (06:47)
[2018-02-20 07:10] LABS: Bedside Glucose 289 mg/dL (70-110)
[2018-02-20] MEDS: DiphenhydrAMINE 25 MG Capsule 50 MG PO (07:34)
--- NOTE | 2018-02-20 08:45 | CL.D_ITS ---
Patient Name: JHONNY GRIJALVA Study Date: 02/20/2018 Performing: Willis Frey MD Ht: 66.92 inches 170 cm : 1950 Wt: 246.92 lbs 112 kg Age: 67 Gender: male BSA: 2.21 PROCEDURE(S) PERFORMED [id number]/LV/CABG CLINICAL PROFILE AND INDICATIONS Indications: ACS > 24 hrs, Stable Known CAD Heart Failure: None Stress/Imaging Stress/Image Study Performed: No Angina Classification Anginal Classification w/in 2 Weeks: CCS III CAD Presentations: Non-STEMI. Symptom onset Date/Time: 02/16/2018 Time Not Available Comorbidities/Risk Factors: Hypertension Dyslipidemia Prior CABG Diabetes Mellitus: Diabetes Therapy: Insulin CONCLUSIONS Triple vessel CAD of the RCA, LAD, LCX Normal LV size, wall motion,and systolic function LVEF: by LV gram 55 % Segmented LV systolic dysfunction- Mild RECOMMENDATIONS Risk factor modification ASA Indefinitely Plavix for at least 12 months Management as per referring [employer] Medical therapy vs. Percutaneous Intervention of LCX and LM only if pt has recurrent SSCP with exerti on with optimal medical therapy. Pt had negative FFR of LCX by Dr Lawton in 09/2017, and cath film reviewed from that event showed no appreciable changes in LM/LCX CAD. Manual sheath removal. Increase Lisinopril to 40mg po qd; cont Imdur 90 mg daily and titrate up if BP not optimized. D/w Dr Maldonado. DESCRIPTION OF PROCEDURE The patient arrived to the procedure lab. The risks and benefits of the procedure as well as a full d escription of our services here and current unavailability of surgical backup were fully explained to the patient and/or their significant other prior to the catheterization. The Timeout was completed, verifying the correct patient and procedure. The patient's procedural site was prepped and draped in the usual fashion. Local anesthetic was given subcutaneously to right groin region with Lidocaine 2%. Using a modified Seldinger technique, arterial access was obtained via the right femoral artery, a 4 Fr sheath was inserted Left Coronary Artery selective angiography was performed in multiple views us ing a 4 Fr. JL5 catheter. Saphenous Vein graft to the LPDA selective angiography was performed in mul tiple views using a 4 Fr. 3DRC catheter. Left internal mammary artery graft to the diag selective ang iography was performed in multiple views using a 4 Fr. 3DRC catheter. Left Ventriculography was performed in GRIGSBY projection using a 4 Fr. Pigtail catheter. LV to AO pullback pr essures were then recorded.The arterial sheath was pulled and manual compression applied until hemost asis is achieved. CORONARY ANGIOGRAPHY DOMINANCE: Co- Dominant LEFT HEART ASSESSMENT Left Ventricular Ejection Fraction: by LV Gram 55 % Anterior Hypokinesis - Mild LVEDP: 17 mmHg LEFT MAIN: 40 % Stenosis LEFT ANTERIOR DECENDING ARTERY: is occluded CIRCUMFLEX ARTERY: MID CIRC: 50 % Stenosis RIGHT CORONARY ARTERY: is occluded from previous cath 09/2017. GRAFTS: FLANNERY graft to the 1st Diagonal is patent Saphenous Vein graft to the LPDA is patent COMPLICATIONS No Complications PROCEDURE MEDICATIONS Oxygen: 2 L/min via nasal cannula SUMMARY OF HEMODYNAMIC DATA Time AIR REST ECG 08:10:38 AO 186/78 (117) SA 08:17:11 LV 181/-21, 14 08:26:18 LV 179/-19, 16 08:26:25 LVp 177/-22, 17 08:26:44 AOp 181/66 (107) 08:26:49 Signed By Willis Frey MD On 02/20/2018 8:44:03 AM Willis Frey MD
[2018-02-20] MEDS: Insulin Lispro 100 UNIT/ML INSULN.PEN SC (09:03)
[2018-02-20] MEDS: Insulin Lispro 100 UNIT/ML INSULN.PEN 8 UNIT SQ ×2 (09:03→11:07)
[2018-02-20] MEDS: Multivitamins,Therapeutic Tablet 1 TABLET PO (09:04)
[2018-02-20] MEDS: Glucerna Shake 120 ML LIQUID PO ×2 (09:04→11:08)
[2018-02-20] MEDS: Doxycycline 100 MG CAPSULE PO (09:05)
[2018-02-20] MEDS: Famotidine 20 MG Tablet PO (09:05)
[2018-02-20] MEDS: Lisinopril 40 MG Tablet PO (09:07)
[2018-02-20] MEDS: buPROPion (XL) 300 MG TABLET.XL PO (09:08)
--- NOTE | 2018-02-20 10:38 | CASEMGMT ---
[facility] today and that C order is now for RN, PT/OT, voices understanding. Yumiko KIM CM
[2018-02-20] MEDS: buPROPion (SR) 100 MG TABLET.SA PO (11:08)
[2018-02-20 11:31] LABS: Bedside Glucose 144 mg/dL (70-110)
--- NOTE | 2018-02-20 15:33 | PN.ORTHO_ITS ---
Patient Problems: Active and Suspected Problems Non-STEMI (non-ST elevated myocardial infarction) (Acute) Coronary artery disease (Acute) Subjective: The patient was sitting in bed upon examination. Patient denies any chest pain, shortness of breath, dizziness, lightheadedness, nausea or vomiting, or calf pain. Pain is controlled on medications. No adverse overnight events. Plan is for patient to go home today. From an orthopedic standpoint patient is stable with regards to his left knee. Objective: Vital signs stable and afebrile. Patient is able to plantarflex and dorsiflex actively. Sensation is intact to light touch to saphenous, sural, superficial and deep peroneal, and tibial distribution. Dressing is clean dry and intact. Left knee postoperative swelling with minimal erythema, warmth to the left knee. Negative Homans bilaterally, negative signs and symptoms of DVT. - Physical Exam General: Alert, Oriented x3, Cooperative, No apparent distress Vital Signs Temp Pulse Resp BP Pulse Ox 98.4 F 70 18 154/72 H 93 02/20/18 12:40 02/20/18 14:24 02/20/18 12:40 02/20/18 12:40 02/20/18 12:40 Oxygen Delivery Method Room Air Weight: 112.49 kg Body Mass Index (BMI) 38.8 Finger Stick Blood Glucose 272 Intake and Output for Last 24 Hours 02/18/18 02/19/18 02/20/18 23:59 23:59 23:59 Intake Total 1676.7 / 1676.7 2200 / 2200 540 / 540 Output Total 300 / 300 Balance 1676.7 / 1676.7 2200 / 2200 240 / 240 Microbiology Past 72 Hours 02/13/18 14:17 Gram Stain - Final Tissue - Knee Wound Culture - Final No growth aerobically. Anaerobic Culture - Final No growth in 5 days. 02/13/18 14:17 Gram Stain - Final Tissue - Knee Wound Culture - Final No growth aerobically. Anaerobic Culture - Final No growth in 5 days. 02/13/18 14:17 Gram Stain - Final Tissue - Knee Wound Culture - Final No growth aerobically. Anaerobic Culture - Final No growth in 5 days. 02/15/18 16:55 Urine Culture - Final Urine Catheter - Catheter Culture exhibits no growth. Laboratory Tests Past 24 Hrs 02/20/18 02/20/18 02/20/18 05:00 05:00 05:00 WBC 6.5 RBC 3.42 L Hgb 10.4 L Hct 31.8 L MCV 93.0 MCH 30.4 MCHC 32.7 RDW 13.5 RDW Differential 44.4 H Plt Count 267 MPV 12.5 H Immature Gran % (Auto) 0.300 Neut % (Auto) 59.9 Lymph % (Auto) 24.5 [place] % (Auto) 10.4 H Eos % (Auto) 4.4 Baso % (Auto) 0.5 Absolute Neuts (auto) 3.9 Absolute Lymphs (auto) 1.60 Total Counted Not Reportable PT 12.4 INR 0.9 APTT 34.4 Sodium 141 Potassium 4.0 Chloride 103 Carbon Dioxide 28.0 Anion Gap 10 BUN 13 Creatinine 1.03 Estim Creat Clear Calc 65.07 Est GFR (MDRD) Af Amer 92 Est GFR (MDRD) Non-Af 76 BUN/Creatinine Ratio 12.6 Glucose 312 H Calcium 9.1 POC Glucose 02/20/18 02/20/18 02/19/18 11:06 06:51 20:49 POC Glucose 144 H 289 H 197 H 02/19/18 02/19/18 16:40 06:54 POC Glucose 151 H 186 H Medical Necessity - Tobacco Use Smoking Status: Never smoker Assessment/Plan All Active Problems Non-STEMI (non-ST elevated myocardial infarction) (Acute) Coronary artery disease (Acute) Hypertensive urgency (Acute) Chest pain (Acute) 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 S/P revision left total knee arthroplasty femoral and tibial components POD #7 2. Continue Pain Medications: Tylenol and tramadol 3. DVT Prophylaxis: Currently on aspirin and Plavix 4. PT/OT: Weightbearing as tolerated with range of motion as tolerated 5. H & H: 10.4/31.8, asymptomatic 6. Encouraged Incentive Spirometry 7. Patient can stop doxycycline after today 8. Continue postoperative medical management per medicine 9. Disposition: Orthopedically stable, plan is for discharge home today. Patient will follow-up per [facility] orthopedic postop instructions. Patient will use extra strength Tylenol and tramadol for pain control. Continue on aspirin and Plavix for DVT prophylaxis. Patient should use KARLA hose daily can take off at nighttime only. Patient will use dry dressing changes daily. Continue icing 20 minutes every 1-2 hours while awake.
--- NOTE | 2018-02-20 16:02 | DCINST_ITS ---
- Discharge Diagnoses Current Active Problems: Current Active and Chronic Problems Non-STEMI (non-ST elevated myocardial infarction) (Acute) Coronary artery disease (Acute) You will use the following diet at home:: Calorie/Carbohydrate Controlled (specify 1200, 1400, etc) - 1800 ADA Your food should be the consistency of: Regular Your liquids should be the consistency of: Regular/Thin Discharge Activity: May Not Drive May shower in (days): 1 - turn dressing away from water Ice area for (Minutes): 20 - every hour while awake. Weight Bearing Status: Weight bearing as tolerated Keep extremity elevated above heart level: Operative Extremity Additional Activity Instructions:: Wear elastic stockings for 2 weeks after your surgery. Call your doctor if your incision/area has: Continuous Slow Oozing, Sudden Increased Bleeding, Increased Pain/ Swelling, Increased Redness, Foul Smelling Discharge Call your doctor if you observe: Fever of 101 or Higher, Coldness, Increased Pain, Numbness or Tingling, Change in Color, Calf discomfort, Uncontrolled pain Remove Dressing in (days):: 2 - Remove Dressing on 02/20/18, will use dry dressing without tape at that time Allergies/Adverse Reactions: Allergies hydrochlorothiazide Allergy (Verified 02/13/18 10:13) Unknown Penicillins [PCN] Allergy (Verified 02/13/18 10:13) Swelling pioglitazone [From Actos] Allergy (Verified 02/13/18 10:13) Unknown oxycodone [From OxyIR] Adverse Reaction (Verified 02/15/18 23:25) Other pravastatin Adverse Reaction (Verified 02/13/18 10:13) Pain in joints tramadol [From Ultram] Adverse Reaction (Verified 02/15/18 23:25) Other Medications to take at Discharge Aspirin [Aspirin EC] 81 mg PO DAILY 03/15/17 Bupropion HCl [Bupropion HCl ER] 100 mg PO LUNCH 03/15/17 Cilostazol 50 mg PO BID 03/15/17 Fluoxetine HCl [Prozac] 20 mg PO TID 03/15/17 Gabapentin [Neurontin] 300 mg PO TID 03/15/17 Insulin Human 70/30 [Novolog Mix 70-30 Flexpen Syrn] 26 units SC DAILYCM 03/15/17 Insulin Human 70/30 [Novolog Mix 70-30 Flexpen Syrn] 30 units SC DINNER 12/06/17 Metoprolol Succinate [Toprol Xl] 12.5 mg PO QHS 03/15/17 Multivitamin [Multiple Vitamins] 1 each PO DAILY 03/15/17 buPROPion XL [Wellbutrin Xl] 300 mg PO DAILY 03/15/17 Isosorbide Mononitrate [Imdur] 90 mg PO DAILY 01/24/18 Quetiapine Fumarate [Seroquel] 25 mg PO DAILY 01/24/18 Acetaminophen [Tylenol Extra Strength] 500 mg PO Q6H PRN PRN #1 tablet 02/20/18 Clopidogrel Bisulfate [Plavix] 75 mg PO DAILY #30 tablet 02/20/18 Donepezil HCl [Aricept] 10 mg PO QHS #30 tablet 02/20/18 Gabapentin [Neurontin] 300 mg PO TID capsule 02/20/18 Gemfibrozil [Lopid] 600 mg PO BIDAC tablet 02/20/18 Lisinopril [Zestril] 40 mg PO DAILY #30 tablet 02/20/18 traMADol [Ultram (G)] 50 mg PO Q6H PRN PRN 7 Days #30 tablet 02/20/18 The following prescriptions were given: Acetaminophen [Tylenol Extra Strength] 500 mg PO Q6H PRN PRN #1 tablet PRN Reason: Pain traMADol [Ultram (G)] 50 mg PO Q6H PRN PRN 7 Days #30 tablet PRN Reason: Pain Clopidogrel Bisulfate [Plavix] 75 mg PO DAILY #30 tablet Donepezil HCl [Aricept] 10 mg PO QHS #30 tablet Lisinopril [Zestril] 40 mg PO DAILY #30 tablet Primary Care Physician: Juve Reed MD [Primary Care Provider] - Test Results: Test results from this visit will be discussed in further detail at your follow- up appointment, if applicable. Please Follow Up With: Cesar Simpson PA-C When: 02/26/18 @ 10:00 am Please Follow Up With: Home Health Physical Therapy When: will need to be set up prior to discharge
--- NOTE | 2018-02-22 07:57 | PN_ITS ---
Subjective: The date of this progress note is 02/20/18: Patient was seen and examined today, I talked extensively with his and daughter as well as the patient. Patient underwent a cardiac catheterization today which did not show significant occlusive disease to warrant intervention today, I talked to Dr. Frey about the case and I also talked with Dr. Seaman who admitted the patient for knee revision on 02/13/18. Family was concerned of redness and swelling of the left knee, it does appear to be reddened and swollen although the patient underwent a knee revision and I told the patient's family this is probably secondary to blood around the wound. I see no drainage from the wound and to me it does not look infected. I told the patient's family would talk to Dr. Seaman about it. Dr. Seaman stated that he saw the patient yesterday and feels that the area is due to localized blood loss around the left knee. - Physical Exam General: Alert, Cooperative, No apparent distress, Well developed HEENT: Atraumatic, PERRLA, Normocephalic Oral: Moist Mucosa Neck: Supple, Trachea Midline, Thyroid Normal Size and Texture Lungs: Clear to auscultation, Normal air movement, No rhonchi, No wheeze, No rales Cardiovascular: Regular rate, Regular Rhythm, Normal S1, Normal S2, No murmurs, No Ectopic Activity, PMI Normal, No rub noted, No Gallop Abdomen: Bowel Sounds Present, Soft, Non Tender, Non-Distended, No hernias noted Extremities: No clubbing, Capillary Refill Less than 3 Seconds, Edema - Generalized edema with some redness is noted around the left knee surgical incision area, this area is not exquisitely tender to palpation Neurological: Cranial nerves II-XII grossly intact, Neuro grossly intact, Sen dimitri exam intact to light touch and pain Psych/Mental Status: Flat Affect, - - Patient responds appropriately to simple questions, he is mildly confused however but not agitated Vital Signs Temp Pulse Resp BP Pulse Ox 98.4 F 65 18 154/72 H 93 02/20/18 12:40 02/20/18 15:05 02/20/18 12:40 02/20/18 12:40 02/20/18 12:40 Oxygen Delivery Method Room Air Weight: 112.49 kg Body Mass Index (BMI) 38.8 Finger Stick Blood Glucose 272 Intake and Output for Last 24 Hours 02/20/18 02/21/18 02/22/18 23:59 23:59 23:59 Intake Total 540 / 540 Output Total 300 / 300 Balance 240 / 240 Microbiology Past 72 Hours 02/13/18 14:17 Gram Stain - Final Tissue - Knee Wound Culture - Final No growth aerobically. Anaerobic Culture - Final No growth in 5 days. 02/13/18 14:17 Gram Stain - Final Tissue - Knee Wound Culture - Final No growth aerobically. Anaerobic Culture - Final No growth in 5 days. 02/13/18 14:17 Gram Stain - Final Tissue - Knee Wound Culture - Final No growth aerobically. Anaerobic Culture - Final No growth in 5 days. Medical Necessity - Tobacco Use Smoking Status: Never smoker Assessment/Plan All Active Problems Non-STEMI (non-ST elevated myocardial infarction) (Acute) Coronary artery disease (Acute) Hypertensive urgency (Acute) Chest pain (Acute) Status post revision of total replacement of left knee (Acute) Acute blood loss anemia (Acute) #1 coronary artery disease-stable at this time #2 type 2 diabetes #3 anxiety and depression-patient will continue on his present medication #4 osteoarthritis #5 dementia #6 hypertension #7 hyperlipidemia #8 status post left total knee revision-postop day #7-patient appears medically stable for discharge #9 anemia-as an expected consequence of left total knee revision-no treatment at this time needed I completed all the discharge paperwork for the patient including sending in prescriptions for the patient and discussing the medications with the and daughter. Code Visit Inpatient E&M: [id number] [facility] Hosp L3
--- NOTE | 2018-02-22 12:48 | PCM.DC.SUM ---
Discharge Date and Diagnosis Date of Admission: 02/13/18 Date of Discharge: 02/22/18 - Primary Discharge Diagnosis left revision total knee arthroplasty Non-STEMI - Secondary Discharge Diagnosis Chronic Problems DM2 (diabetes mellitus, type 2) (Chronic) Coronary artery disease - stable Anxiety and depression Dementia Hypertension Hyperlipidemia Hospital Course and Treatment Primary Medicine Parent Educator Operations: total knee replacement Procedures: Cardiac catheterization Summary of Care Provided: Patient is a 67-year-old male who had a painful left total knee replacement. 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 After discussion with Dr. Rogelio Seaman, the patient opted to proceed with a revision left total knee arthroplasty. The patient underwent the above-stated procedure on February 13, 2018. Patient did receive perioperative antibiotics. Intraoperatively was uneventful. For complete details please see dictated operative note The patient was placed in knee immobilizer on the left knee. Patient remained stable in recovery. Patient was admitted to third floor at [facility]. Patient's pain was managed with the use of IV and p.o. pain medications. On postoperative day #4 patient had hypertensive urgency episode with a blood pressure of 199/106. Patient began having some chest tightness. Patient had normal EKG but troponin levels were elevated. Patient sustained a myocardial infarction. Cardiology was consult. Patient does have a history of 2 previous bypass surgeries. Heart catheterization was done by Dr. Frey on February 22, 2018. Patient participated in physical therapy and was weightbearing as tolerated. Patient was discharged on postoperative day #9. Patient was given medications stated below. Patient will continue with aspirin and Plavix for DVT prophylaxis at this time. He is currently on Tylenol and tramadol for pain control. Overall patient's pain and the knee was well controlled. Patient does continue to have swelling in the left knee. He will continue with ice and elevation. Patient will follow up with orthopedics per postop instructions for reassessment. Patient will undergo home health physical therapy. 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 - Physical Exam Vital Signs Temp Pulse Resp BP Pulse Ox 98.4 F 65 18 154/72 H 93 02/20/18 12:40 02/20/18 15:05 02/20/18 12:40 02/20/18 12:40 02/20/18 12:40 Oxygen Delivery Method Room Air Weight: 112.49 kg Body Mass Index (BMI) 38.8 Finger Stick Blood Glucose 272 Intake and Output for Last 24 Hours 02/20/18 02/21/18 02/22/18 23:59 23:59 23:59 Intake Total 540 / 540 Output Total 300 / 300 Balance 240 / 240 Discharge Diet: No Restrictions Discharge Activity: May Not Drive May shower in (days): 1 - turn dressing away from water Ice area for (Minutes): 20 - every hour while awake. Weight Bearing Status: Weight bearing as tolerated Keep extremity elevated above heart level: Operative Extremity Additional Activity Instructions:: Wear elastic stockings for 2 weeks after your surgery. Call your doctor if your incision/area has: Continuous Slow Oozing, Sudden Increased Bleeding, Increased Pain/ Swelling, Increased Redness, Foul Smelling Discharge Call your doctor if you observe: Fever of 101 or Higher, Coldness, Increased Pain, Numbness or Tingling, Change in Color, Calf discomfort, Uncontrolled pain Remove Dressing in (days):: 2 - Remove Dressing on 02/20/18, will use dry dressing without tape at that time Home Medications: Medications to take at Discharge Aspirin [Aspirin EC] 81 mg PO DAILY 03/15/17 Bupropion HCl [Bupropion HCl ER] 100 mg PO LUNCH 03/15/17 Cilostazol 50 mg PO BID 03/15/17 Fluoxetine HCl [Prozac] 20 mg PO TID 03/15/17 Gabapentin [Neurontin] 300 mg PO TID 03/15/17 Insulin Human 70/30 [Novolog Mix 70-30 Flexpen Syrn] 26 units SC DAILYCM 03/15/17 Insulin Human 70/30 [Novolog Mix 70-30 Flexpen Syrn] 30 units SC DINNER 03/15/17 Metoprolol Succinate [Toprol Xl] 12.5 mg PO QHS 03/15/17 Multivitamin [Multiple Vitamins] 1 each PO DAILY 03/15/17 buPROPion XL [Wellbutrin Xl] 300 mg PO DAILY 03/15/17 Isosorbide Mononitrate [Imdur] 90 mg PO DAILY 01/24/18 Quetiapine Fumarate [Seroquel] 25 mg PO DAILY 01/24/18 Acetaminophen [Tylenol Extra Strength] 500 mg PO Q6H PRN PRN #1 tablet 02/20/18 Clopidogrel Bisulfate [Plavix] 75 mg PO DAILY #30 tablet 02/20/18 Donepezil HCl [Aricept] 10 mg PO QHS #30 tablet 02/20/18 Gabapentin [Neurontin] 300 mg PO TID capsule 02/20/18 Gemfibrozil [Lopid] 600 mg PO BIDAC tablet 02/20/18 Lisinopril [Zestril] 40 mg PO DAILY #30 tablet 02/20/18 traMADol [Ultram (G)] 50 mg PO Q6H PRN PRN 7 Days #30 tablet 02/20/18 Following Prescrptions Were Given to Patient: Acetaminophen [Tylenol Extra Strength] 500 mg PO Q6H PRN PRN #1 tablet PRN Reason: Pain traMADol [Ultram (G)] 50 mg PO Q6H PRN PRN 7 Days #30 tablet PRN Reason: Pain Clopidogrel Bisulfate [Plavix] 75 mg PO DAILY #30 tablet Donepezil HCl [Aricept] 10 mg PO QHS #30 tablet Lisinopril [Zestril] 40 mg PO DAILY #30 tablet Primary Care Physician: Juve Reed MD [Primary Care Provider] - Please Follow Up With: Cesar Simpson PA-C When: 02/26/18 @ 10:00 am Please Follow Up With: Home Health Physical Therapy When: will need to be set up prior to discharge Additional Instructions: Patient will follow up per post-op instructions Pain Control: Take Extra Strength Tylenol 500 mg 2 tablets every 8 hours for primary pain control. Then use Tramadol 50 mg 1-2 tablets as needed for breakthrough pain. Medical Necessity - Tobacco Use Smoking Status: Never smoker Meaningful Use Info Meaningful Use Diagnoses (Choose all that apply): None applicable
== END 2018-02-20 16:45 | disposition home health service (06) | DRG 466 ==
LOC: ACINP 13:42 → MS3 02-14 06:39 → PCU 02-18 07:12
PROVIDERS: Internal Medicine Cardiovascular Disease; Student in an Organized Health Care Education/Training Program; Admitting Provider Specialist; Family Provider Family Medicine; PCP Family Medicine; Referring Provider Specialist; Visit Provider Internal Medicine
PROC: 0SPD0JZ Removal of Synthetic Substitute from Left Knee Joint, Open Approach (ICD-10-PCS; principal; 2018-02-13 12:35)
DX: T84.033A Mechanical loosening of internal left knee prosthetic joint, initial encounter (principal); J13 Pneumonia due to Streptococcus pneumoniae; G92 Toxic encephalopathy; I21.4 Non-ST elevation (NSTEMI) myocardial infarction; D62 Acute posthemorrhagic anemia; J95.89 Other postprocedural complications and disorders of respiratory system, not elsewhere classified; Z96.652 Presence of left artificial knee joint; F03.90 Unspecified dementia, unspecified severity, without behavioral disturbance, psychotic disturbance, mood disturbance, and anxiety; Z86.718 Personal history of other venous thrombosis and embolism; Z79.01 Long term (current) use of anticoagulants; Z95.1 Presence of aortocoronary bypass graft; I25.10 Atherosclerotic heart disease of native coronary artery without angina pectoris; Z79.4 Long term (current) use of insulin; I10 Essential (primary) hypertension; F32.9 Major depressive disorder, single episode, unspecified; E11.65 Type 2 diabetes mellitus with hyperglycemia; I16.0 Hypertensive urgency; T40.605A Adverse effect of unspecified narcotics, initial encounter; E78.5 Hyperlipidemia, unspecified
CPT/HCPCS: 36415; 70450; 71045; 73560; 80048; 80061; 81001; 82962; 83036; 84484; 85025; 85027; 85610; 85730; 87015; 87070; 87075; 87081; 87086; 87102; 87116; 87205; 87206; 87449; 93005; 93306; 93459; 94640; 94667; 94668; 97110; 97162; 97165; 97530; 97535; 99251; C1776; J7030; J7040; J7120; Q9957; A4216; C1769; C8929; G0463; J2405; J2785; Q9967

== ENCOUNTER 2018-03-13 04:18 | Inpatient (IN) | payer MEDICARE, MEDICAID, SELFPAY ==
[2018-03-13] VITALS (18 sets, daily range): BP systolic 126–212; BP diastolic 55–108; PULSE 53–87; RESP 16–17; TEMP 35.9–36.9; O2SAT 95–100; BMI 38.5; BMI 37.8
--- NOTE | 2018-03-13 04:22 | ED.RN ---
CALLED FOR EKG PER RN REQUEST, PULLED OLD EKGS FOR
--- NOTE | 2018-03-13 04:41 | RAD_ITS ---
STUDY: X-RAY CHEST REASON FOR EXAM: Male, 67 years old. Chest pain TECHNIQUE: 1 view COMPARISON: February 15, 2018 FINDINGS: There is a right lower lobe opacity which may represent a focus of pneumonia or atelectatic change. The left lung is clear. The heart is at the upper limits of normal in size. Median sternotomy wires are in Normal visualized thoracic spine. Normal visualized ribs, clavicles, and shoulders. There is no demonstrated abnormality of the visualized soft tissue structures of the upper abdomen. RAD/Chest 1 View (Portable) IMPRESSION: A right lower lobe opacity representing either a focus of pneumonia or atelectatic changes Electronically Signed: Juan Manuel Castellanos MD at 5:23 EST Tel , Service support ,
--- NOTE | 2018-03-13 04:41 | EKG12_ITS ---
Test Reason : CP Blood Pressure : / mmHG Vent. Rate : 074 BPM Atrial Rate : 074 BPM P-R Int : 152 ms QRS Dur : 108 ms QT Int : 412 ms P-R-T Axes : 046 031 062 degrees QTc Int : 457 ms Normal sinus rhythm Incomplete right bundle branch block Borderline ECG Confirmed by JEIMY STODDARD, LYNETTE ([id number]), digital editor ANNA GLASGOW ([id number]) on 03/15/2018 1:42:06 PM Referred By: RANDY Confirmed By:LYNETTE MUNSON MD
[2018-03-13 05:21] LABS: Anion Gap 10 (5-15); BUN 18 mg/dL (7-18); BUN/Creat Ratio 16.7 RATIO (10-20); Calcium,Total 9.3 mg/dL (8.5-10.1); Chloride 102 mmol/L (98-107); Creatinine, Serum 1.08 mg/dL (0.70-1.30); EST Glomerular Filtration Rate 72 mL/min (>60); Est Glom Filt Rate - Afr Amer 88 mL/min (>60); Estimated Creatinine Clearance 62.05 ml/min; Glucose 164 mg/dL (74-106); Potassium 4.4 mmol/L (3.5-5.1); Sodium Level 140 mmol/L (136-145)
[2018-03-13 05:36] LABS: Absolute Neutrophil Count 3.8 X10^3/uL (2.0-7.7); Basophil# 0.05 X10^3/uL; Basophil% 0.7 % (0-1); Eosinophil# 0.48 X10^3/uL; Eosinophils% 7.1 % (0-5); Hemoglobin 11.5 g/dl (13.0-16.5); Mean Corp Hgb Conc 31.9 g/gl (32-36); Mean Corpuscular Hgb 29.1 pg (27.0-32.0); Mean Corpuscular Volume 91.1 fL (80-94); Mean Platelet Vol. 11.3 fl (6.2-12.0); Monocyte# 0.31 X10^3/uL; Monocyte% 4.6 % (0-10); Neutrophil # 3.83 X10^3/uL (2.7-7.7); Neutrophil % 56.5 % (47-70); POSITIVE COUNT NO; POSITIVE DIFFERENTIAL NO; POSITIVE MORPHOLOGY NO; Platelet Count 320 K/mm3 (150-450); RBC Distribution Width CV 13.2 % (11.6-14.6); RBC Distribution Width SD 44.1 fl (35.1-43.9); Red Blood Count 3.95 M/mm3 (4.6-6.2); White Blood Count 6.8 K/mm3 (4.4-11.0)
--- NOTE | 2018-03-13 05:45 | ED.VISSUMM ---
- ER Visit Summary Date of Service: 03/13/18 Chief Complaint: Chest pain History of Present Illness: The patient is a 67 M who presents with chest pain. He does have a history of coronary artery disease, prior CABG x2. He recently had an an STEMI after a knee replacement. He had a cardiac catheterization which showed patent grafts and areas of 50% stenosis but nothing that was amenable to stenting. Over the past 3 days especially in the mornings he has been having increased lower chest heaviness. His diesel motor mechanic increased his Imdur yesterday. He states that yesterday was a worse a day and he had more episodes of pain shortness of breath than before. He also began to develop some cold symptoms with congestion and cough. No fevers. Physical Examination: Blood pressure 212/104 vitals otherwise unremarkable Moist mucous membranes Heart regular rate and rhythm Lungs are clear Abdomen soft Alert Test Results: EKG shows normal sinus rhythm at a rate of 74 with a right bundle branch block. Chest x-ray shows right lower lobe opacity. Labs essentially unremarkable with a negative troponin. Emergency Department Course and Treatment: Patient took aspirin prior to arrival. He was given sublingual nitroglycerin here with really no change in symptoms. He remains significantly hypertensive and was given IV hydralazine. His chest x-ray was read as pneumonia versus atelectasis. Given that he does have infectious symptoms we will treat for healthcare associated pneumonia. He was given Azactam and vancomycin. I still feel with his symptoms he should also have a cardiac rule out with repeat EKG and troponins. Patient to be discussed with the hospitalist and admitted. Treatment Plan: [] Disposition: Admit Impression: Chest pain Healthcare associated pneumonia Uncontrolled hypertension This note was generated with [employer] dictation software. It may contain incorrect words, spelling, and punctuation that were not noted in review of the chart prior to signing ED Disposition - Plan for ED Patient: Chief Complaint: Chest Pain Referrals: Juve Reed MD [Primary Care Provider] -
--- NOTE | 2018-03-13 05:48 | ED.DCSUM_ITS ---
- ER Visit Summary Date of Service: 03/13/18 Chief Complaint: Chest pain History of Present Illness: The patient is a 67 M who presents with chest pain. He does have a history of coronary artery disease, prior CABG x2. He recently had an an STEMI after a knee replacement. He had a cardiac catheterization which showed patent grafts and areas of 50% stenosis but nothing that was amenable to stenting. Over the past 3 days especially in the mornings he has been having increased lower chest heaviness. His chain saw operator increased his Imdur yesterday. He states that yesterday was a worse a day and he had more episodes of pain shortness of breath than before. He also began to develop some cold symptoms with congestion and cough. No fevers. Physical Examination: Blood pressure 212/104 vitals otherwise unremarkable Moist mucous membranes Heart regular rate and rhythm Lungs are clear Abdomen soft Alert Test Results: EKG shows normal sinus rhythm at a rate of 74 with a right bundle branch block. Chest x-ray shows right lower lobe opacity. Labs essentially unremarkable with a negative troponin. Emergency Department Course and Treatment: Patient took aspirin prior to arrival. He was given sublingual nitroglycerin here with really no change in symptoms. He remains significantly hypertensive and was given IV hydralazine. His chest x-ray was read as pneumonia versus atelectasis. Given that he does barbosa ve infectious symptoms we will treat for healthcare associated pneumonia. He was given Azactam and vancomycin. I still feel with his symptoms he should also have a cardiac rule out with repeat EKG and troponins. Patient to be discussed with the hospitalist and admitted. Treatment Plan: [] Disposition: Admit Impression: Chest pain Healthcare associated pneumonia Uncontrolled hypertension This note was generated with [employer] dictation software. It may contain incorrect words, spelling, and punctuation that were not noted in review of the chart prior to signing ED Disposition - Plan for ED Patient: Chief Complaint: Chest Pain Referrals: Juve Reed MD [Primary Care Provider] -
--- NOTE | 2018-03-13 06:10 | HP.PCM_ITS ---
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 The patient had a knee revision procedure last month and subsequently had a non-STEMI heart catheterization was done mid February and found no lesions amenable to stenting. He has had two CABG procedures one 3 years ago and another ten years before that one. CXR reveals a right lower lobe infiltrate. He is hypertensive as well. Currently he is chest pain free. Recently his Imdur dosage at home is being adjusted. He also complains of some redness over the incision of left knee , but he says that looks better today than it has. He will be admitted to PCU and treated for HCAP and hypertension, cardiac markers will be cycled and cardiology consulted if Troponins become detectable. Past Medical History Past Medical History (Chronic Problems): Chronic Problems Coronary artery disease (Chronic) Status post revision of total replacement of left knee (Chronic) DM2 (diabetes mellitus, type 2) (Chronic) Allergies hydrochlorothiazide Allergy (Verified 02/13/18 10:13) Unknown Penicillins [PCN] Allergy (Verified 02/13/18 10:13) Swelling pioglitazone [From Actos] Allergy (Verified 02/13/18 10:13) Unknown oxycodone [From OxyIR] Adverse Reaction (Verified 02/15/18 23:25) Other pravastatin Adverse Reaction (Verified 02/13/18 10:13) Pain in joints Home Medications: Ambulatory Orders Medication Instructions Recorded Aspirin [Aspirin EC] 81 mg PO DAILY 03/15/17 Bupropion HCl [Bupropion HCl ER] 100 mg PO LUNCH 03/15/17 Cilostazol 100 mg PO DAILY 03/15/17 Fluoxetine HCl [Prozac] 20 mg PO TID 03/15/17 Gabapentin [Neurontin] 300 mg PO TID 03/15/17 Insulin Human 70/30 [Novolog Mix 30 units SC BIDCM 03/15/17 70-30 Flexpen Syrn] Metoprolol Succinate [Toprol Xl] 12.5 mg PO QHS 03/15/17 Multivitamin [Multiple Vitamins] 1 each PO DAILY 03/15/17 buPROPion XL [Wellbutrin Xl] 300 mg PO DAILY 03/15/17 Isosorbide Mononitrate [Imdur] 120 mg PO DAILY 01/24/18 Quetiapine Fumarate [Seroquel] 25 mg PO BID 01/24/18 Clopidogrel Bisulfate [Plavix] 75 mg PO DAILY #30 tablet 02/20/18 Donepezil HCl [Aricept] 10 mg PO QHS #30 tablet 02/20/18 Lisinopril [Zestril] 20 mg PO DAILY 03/13/18 Metformin HCl [Glucophage] 1,500 mg PO DAILY 03/13/18 Smoking Status: Never smoker - *Family History Maternal History Items: No pertinent history Review of Systems Constitutional: Denies: Chills, Fever, Weight Change HEENT: Denies: Head Aches, Sinus Congestion, Sinus Drainage Cardiovascular: Reports: Chest Pain. Denies: Palpitations Respiratory: Reports: Shortness of breath at rest. Denies: Cough, Sputum production Gastrointestinal: Denies: Abdominal Pain, Nausea, Vomiting Genitourinary: Denies: Dysuria Musculoskeletal: Reports: Joint Pain, Joint Tenderness Skin: Denies: Rash, Wounds Neurological: Denies: Numbness, Tingling, Focal weakness Psychiatric: Denies: Anxiety, Depression, Homicidal Ideations, Suicidal Ideations Hematologic/ Lymphatic: Denies: Easy Bruising, Easy Bleeding VTE Information - Inpt Only VTE Present on Admission: No VTE Mechan Device Prophylaxis: None VTE Pharm Prophylaxis ordered?: Yes Patient Problems: Active and Suspected Problems HCAP (healthcare-associated pneumonia) (Acute) - Physical Exam General: Alert, Oriented x3, Cooperative HEENT: Atraumatic, Normocephalic Neck: Supple Lungs: Clear to auscultation, Normal air movement, No rhonchi, No wheeze, No rales Cardiovascular: Regular rate, Regular Rhythm, Normal S1, Normal S2, No murmurs Abdomen: Bowel Sounds Present, Soft, Non Tender, Obese Extremities: No edema, Capillary Refill Less than 3 Seconds Skin: No rashes, - - erythema and warmth on left knee incision Musculoskeletal: No Tenderness to Palpation of Joints or Extremities Neurological: Neuro grossly intact Psych/Mental Status: Normal Affect, Appropriate Vital Signs Temp Pulse Resp BP Pulse Ox 97.6 F L 66 17 192/108 H 95 03/13/18 04:20 03/13/18 05:16 03/13/18 04:20 03/13/18 05:16 03/13/18 04:20 Oxygen Flow Rate (L/min) 2 Oxygen Delivery Method Nasal Cannula Weight: 246 lb 4.101 oz Body Mass Index (BMI) 38.5 Finger Stick Blood Glucose 272 Laboratory Tests Past 24 Hrs 03/13/18 03/13/18 04:32 04:32 WBC 6.8 RBC 3.95 L Hgb 11.5 L Hct 36.0 L MCV 91.1 MCH 29.1 MCHC 31.9 L RDW 13.2 RDW Differential 44.1 H Plt Count 320 MPV 11.3 Immature Gran % (Auto) 0.100 Neut % (Auto) 56.5 Lymph % (Auto) 31.0 [place] % (Auto) 4.6 Eos % (Auto) 7.1 H Baso % (Auto) 0.7 Absolute Neuts (auto) 3.8 Absolute Lymphs (auto) 2.10 Total Counted Not Reportable Sodium 140 Potassium 4.4 Chloride 102 Carbon Dioxide 28.0 Anion Gap 10 BUN 18 Creatinine 1.08 Estim Creat Clear Calc 62.05 Est GFR (MDRD) Af Amer 88 Est GFR (MDRD) Non-Af 72 BUN/Creatinine Ratio 16.7 Glucose 164 H Calcium 9.3 Troponin I < 0.015 Assessment/Plan All Active Problems Non-STEMI (non-ST elevated myocardial infarction) (Acute) HCAP (healthcare-associated pneumonia) (Acute) Hypertensive urgency (Acute) Chest pain (Acute) Acute blood loss anemia (Acute) Plan - admit to PCU - continue antibiotics for HCAP and oxygen as needed - duoneb inh q 4hrs prn - cycle cardiac enzymes - hydralazine prn for HTN - continue routine home medications - LMWH for DVT prophylaxis - morphine, oxygen, nitro per routine - plan to consult cardiology if troponin converts Code Visit Inpatient E&M: 41885 Init Hosp L3
[2018-03-13] MEDS: hydrALAZINE 20 MG/ML Vial IV (06:13)
--- NOTE | 2018-03-13 07:17 | EKG12_ITS ---
Test Reason : CP REPEAT Blood Pressure : / mmHG Vent. Rate : 080 BPM Atrial Rate : 080 BPM P-R Int : 150 ms QRS Dur : 110 ms QT Int : 402 ms P-R-T Axes : 068 032 069 degrees QTc Int : 463 ms Normal sinus rhythm Incomplete right bundle branch block Nonspecific ST abnormality Abnormal ECG Confirmed by JEIMY STODDARD, LYNETTE ([id number]), food editor ANNA GLASGOW ([id number]) on 03/15/2018 1:49:11 PM Referred By: ARIC Confirmed By:LYNETTE MUNSON MD
[2018-03-13] MEDS: Acetaminophen 325 MG Tablet 650 MG PO (10:16)
[2018-03-13] MEDS: Clopidogrel Bisulfate 75 MG Tablet PO (10:16)
[2018-03-13] MEDS: buPROPion (XL) 300 MG TABLET.XL PO (10:17)
[2018-03-13] MEDS: Enoxaparin 40 MG/0.4 ML Syringe SC (10:17)
[2018-03-13] MEDS: Aspirin E.C. 81 MG Tablet PO (10:17)
[2018-03-13] MEDS: Gabapentin 300 MG Capsule PO ×3 (10:19→18:00)
[2018-03-13] MEDS: Cilostazol 50 MG Tablet 100 MG PO (10:21)
[2018-03-13] MEDS: amLODIPine 10 MG Tablet PO (10:29)
[2018-03-13] MEDS: Insulin Human 75/25 Kwickpen 30 UNIT SC ×2 (10:29→18:00)
[2018-03-13] MEDS: Furosemide 100 MG/10 ML Vial 60 MG IV (10:30)
[2018-03-13] MEDS: 0.9% NaCl Peripheral Flush Adult/Peds IV (10:30)
--- NOTE | 2018-03-13 11:23 | PN_ITS ---
Patient Problems: Active and Suspected Problems HCAP (healthcare-associated pneumonia) (Acute) Subjective: Patient is a 67-year-old gentleman who underwent left total knee arthroplasty on 02/15/[address] Seaman. Patient postoperative. Was complicated by development of acute non-STEMI. Patient underwent left heart catheterization on 02/20/2018 which demonstrated triple-vessel disease involving an occluded RCA, and occluded LAD 50% circumflex stenosis. Mild position of medical therapy was recommended by Dr. Frey with cardiology unless consideration for PCI if patient became symptomatic. Patient presented to the emergency department with exertional dyspnea and some shortness of breath and markedly elevated systolic blood pressure. Objective: GENERAL: cooperative HEENT: Atraumatic; moist oral mucosa EYES; Anicteric, Normal Conjunctiva NECK; supple, normal thyroid, no distended JVD. RESPIRATORY: Diminished to auscultation bilaterally, CARDIOVASCULAR: Regular S1 S2, no audible murmurs GI: soft, non-tender, normoactive bowel sounds, : No Renal angle tenderness; EXTREMITIES: trace edema, no clubbing, no cyanosis. MUSCULOSKELETAL: No Joint Tenderness; no muscle waisting NEURO: Awake; no lateralizing signs. SKIN: No Rash PSYCH; Normal affect Vitals/I&O's: Vital Signs Temp Pulse Resp BP Pulse Ox 98.0 F 74 16 203/100 H 100 03/13/18 09:58 03/13/18 09:58 03/13/18 09:58 03/13/18 09:58 03/13/18 09:58 Oxygen Flow Rate (L/min) 2 Oxygen Delivery Method Room Air Weight: 109.6 kg Body Mass Index (BMI) 37.8 Finger Stick Blood Glucose 272 Laboratory Results 03/13/18 04:32: WBC 6.8, RBC 3.95 L, Hgb 11.5 L, Hct 36.0 L, MCV 91.1, MCH 29.1, MCHC 31.9 L, RDW 13.2, RDW Differential 44.1 H, Plt Count 320, MPV 11.3, Immature Gran % (Auto) 0.100, Neut % (Auto) 56.5, Lymph % (Auto) 31.0, [place] % (Auto) 4.6, Eos % (Auto) 7.1 H, Baso % (Auto) 0.7, Absolute Neuts (auto) 3.8, Absolute Lymphs (auto) 2.10, Total Counted Not Reportable 03/13/18 04:32: Sodium 140, Potassium 4.4, Chloride 102, Carbon Dioxide 28.0, Anion Gap 10, BUN 18, Creatinine 1.08, Estim Creat Clear Calc 62.05, Est GFR (MDRD) Af Amer 88, Est GFR (MDRD) Non-Af 72, BUN/Creatinine Ratio 16.7, Glucose 164 H, Calcium 9.3, Troponin I < 0.015 03/13/18 07:24: Troponin I 0.048 H 03/13/18 10:20: Troponin I 0.093 H Current Medications Acetaminophen (Tylenol) 650 mg PO Q6H PRN PRN PRN Reason: PAIN Last Admin: 03/13/18 10:16 Dose: 650 mg Amlodipine Besylate (Norvasc) 10 mg PO DAILY [facility] Last Admin: 03/13/18 10:17 Dose: 81 mg Bupropion HCl (Wellbutrin Xl) 300 mg PO DAILY [facility] Last Admin: 03/13/18 10:17 Dose: 300 mg Cilostazol (Pletal) 100 mg PO DAILY [facility] Last Admin: 03/13/18 10:21 Dose: 100 mg Clopidogrel Bisulfate (Plavix) 75 mg PO DAILY [facility] Last Admin: 03/13/18 10:16 Dose: 75 mg Dextrose (D50w Syringe) 0 gm IV X1 PRN; Protocol PRN Reason: Hypoglycemia Donepezil HCl (Aricept) 10 mg PO QHS [facility] Enoxaparin Sodium (Lovenox) 40 mg SC DAILY@1000 [facility] Last Admin: 03/13/18 10:17 Dose: 40 mg Fluoxetine HCl (Prozac) 20 mg PO TID [facility] Gabapentin (Neurontin) 300 mg PO TIDCM [facility] Last Admin: 03/13/18 10:19 Dose: 300 mg Glucagon () 1 mg IM .X1 PRN PRN Reason: Hypoglycemia Hydralazine HCl (Apresoline Iv) 20 mg IV Q4H PRN PRN PRN Reason: Hypertensive Emergency Insulin Human Lispro (Humalog Kwikpen (Bkc)) 0 unit SQ ACHS [facility]; Protocol Isosorbide Mononitrate (Imdur) 120 mg PO DAILY [facility] Last Admin: 03/13/18 10:18 Dose: 120 mg Lisinopril (Zestril) 20 mg PO BID [facility] Magnesium Hydroxide (Milk Of Magnesia) 30 ml PO DAILY PRN PRN Reason: Constipation Metoprolol Tartrate (Lopressor (Beta Lobo)) 25 mg PO BID [facility] Nitroglycerin (Nitrostat) 0.4 mg SUBLINGUAL Q5M PRN PRN Reason: CHEST PAIN Quetiapine Fumarate (Seroquel) 25 mg PO BID [facility] Sodium Chloride () 5 - 15 ml IV UD PRN PRN Reason: SALINE FLUSH Last Admin: 03/13/18 10:30 Dose: 10 ml Medical Necessity - Tobacco Use Smoking Status: Never smoker Assessment/Plan All Active Problems Non-STEMI (non-ST elevated myocardial infarction) (Acute) HCAP (healthcare-associated pneumonia) (Acute) Hypertensive urgency (Acute) Chest pain (Acute) Acute blood loss anemia (Acute) Patient is a 67-year-old gentleman who underwent left total knee arthroplasty on 02/15/[address] Seaman. Patient postoperative. Was complicated by development of acute non-STEMI. Patient underwent left heart catheterization on 02/20/2018 which demonstrated triple-vessel disease involving an occluded RCA, and occluded LAD 50% circumflex stenosis. Mild position of medical therapy was recommended by Dr. Frey with cardiology unless consideration for PCI if patient became symptomatic. Patient presented to the emergency department with exertional dyspnea and some shortness of breath and markedly elevated systolic blood pressure. 1. Unstable angina in a patient with known CAD. Patient has been admitted to a monitored bed treatment initiated per protocol with continuation of his dual antiplatelet therapy, beta blockers, therapeutic Lovenox as well as nitrates. Consultation placed to cardiology. Subsequent decision deferred to cardiology 2. Acute hypertensive crisis patient systolic blood pressure upon admission was greater than 200 home medications continued with dose adjustment in addition to hydralazine as needed. Also added amlodipine to patient scheduled regimen 3. Pneumonia ruled out there was a questionable infiltrate on chest x-ray however patient was afebrile without leukocytosis saturating percent on room air. Antibiotics initiated on admission subsequently discontinued findings on chest x-ray attributed to atelectasis. Did initiate incentive spirometry treatment 4. Recent revision of left total knee arthroplasty by Dr. Seaman on 02/15/2018 5. Coronary artery disease with 2 previous CABG and a recent left heart catheterization results as stated above 6. Diabetes mellitus type II: Controlledpatient's oral hypoglycemics held. Placed on long acting insulin, Accu-Cheks a.c. and at bedtime and covered with sliding scale insulin 7. Previous history of DVT treated with Xarelto 8. Morbid obesity BMI of 30 seven-point 9. DVT prophylaxis: Lovenox Active Medications Acetaminophen (Tylenol) 650 mg PO Q6H PRN PRN PRN Reason: PAIN Last Admin: 03/13/18 10:16 Dose: 650 mg Al Hydroxide/Mg Hydroxide (Mylanta Ii) 30 ml PO Q4H PRN PRN PRN Reason: INDIGESTION Amlodipine Besylate (Norvasc) 10 mg PO DAILY [facility]irin (Ecotrin) [facility] Last Admin: 03/13/18 10:17 Dose: 81 mg Bupropion HCl (Wellbutrin Xl) 300 mg PO DAILY [facility] Last Admin: 03/13/18 10:17 Dose: 300 mg Cilostazol (Pletal) 100 mg PO DAILY [facility] Last Admin: 03/13/18 10:21 Dose: 100 mg Clopidogrel Bisulfate (Plavix) 75 mg PO DAILY [facility] Last Admin: 03/13/18 10:16 Dose: 75 mg Dextrose (D50w Syringe) 0 gm IV X1 PRN; Protocol PRN Reason: Hypoglycemia Donepezil HCl (Aricept) 10 mg PO QHS [facility] Enoxaparin Sodium (Lovenox) 40 mg SC DAILY@1000 [facility] Last Admin: 03/13/18 10:17 Dose: 40 mg Fluoxetine HCl (Prozac) 20 mg PO TID [facility] Last Admin: 03/13/18 12:39 Dose: 20 mg Gabapentin (Neurontin) 300 mg PO TIDCM [facility] Last Admin: 03/13/18 12:39 Dose: 300 mg Glucagon () 1 mg IM .X1 PRN PRN Reason: Hypoglycemia Hydralazine HCl (Apresoline Iv) 20 mg IV Q4H PRN PRN PRN Reason: Hypertensive Emergency Insulin Human Lispro (Humalog Kwikpen (Bkc)) 0 unit SQ ACHS [facility]; Protocol Last Admin: 03/13/18 12:38 Dose: 4 units Isosorbide Mononitrate (Imdur) 120 mg PO DAILY [facility] Last Admin: 03/13/18 10:18 Dose: 120 mg Lisinopril (Zestril) 20 mg PO BID [facility] Magnesium Hydroxide (Milk Of Magnesia) 30 ml PO DAILY PRN PRN Reason: Constipation Metoprolol Tartrate (Lopressor (Beta Lobo)) 50 mg PO BID [facility] Nitroglycerin (Nitrostat) 0.4 mg SUBLINGUAL Q5M PRN PRN Reason: CHEST PAIN Quetiapine Fumarate (Seroquel) 25 mg PO BID [facility] Last Admin: 03/13/18 12:37 Dose: 25 mg Ranolazine (Ranexa) 500 mg PO BID [facility] Sodium Chloride () 5 - 15 ml IV UD PRN PRN Reason: SALINE FLUSH Last Admin: 03/13/18 10:30 Dose: 10 ml Clinical Impression(s) from Imaging Studies Chest X-Ray 03/13/18 04:41 IMPRESSION: A right lower lobe opacity representing either a focus of pneumonia or atelectatic changes Electronically Signed: Juan Manuel Castellanos MD at 5:23 EST Tel , Service support , Code Visit Inpatient E&M: 48898 Subs Hosp L3
[2018-03-13] MEDS: QUEtiapine 25 MG Tablet PO ×2 (12:37→21:12)
[2018-03-13] MEDS: Insulin Lispro 100 UNIT/ML INSULN.PEN SQ (12:38)
[2018-03-13] MEDS: FLUoxetine 20 MG Capsule PO ×2 (12:39→21:17)
--- NOTE | 2018-03-13 12:42 | EKG12_ITS ---
Test Reason : CP Blood Pressure : / mmHG Vent. Rate : 088 BPM Atrial Rate : 088 BPM P-R Int : 108 ms QRS Dur : 110 ms QT Int : 392 ms P-R-T Axes : 118 027 068 degrees QTc Int : 474 ms Sinus rhythm with short WA with Premature atrial complexes Incomplete right bundle branch block Nonspecific ST abnormality Abnormal ECG When compared with ECG of 13-MAR-2018 06:53, MANUAL COMPARISON REQUIRED, DATA IS UNCONFIRMED Confirmed by JAYDA STODDARD, MARIANNA ([id number]), associate entertainment editor ANNA GLASGOW ([id number]) on 03/16/2018 3:07:04 PM Referred By: ARIC Confirmed By:MARIANNA MONTELONGO MD
[2018-03-13 12:46] LABS: Bedside Glucose 205 mg/dL (70-110)
--- NOTE | 2018-03-13 14:48 | PCM.CONS.C ---
Problem List (1) Abnormal cardiac enzyme level Status: Acute (2) Coronary artery disease Status: Chronic (3) S/P CABG (coronary artery bypass graft) Status: Chronic (4) Hypertensive urgency Status: Acute (5) HLD (hyperlipidemia) Status: Chronic (6) HTN (hypertension) Status: Chronic (7) DM2 (diabetes mellitus, type 2) Status: Chronic (8) HCAP (healthcare-associated pneumonia) Status: Acute (9) Abdominal discomfort Status: Acute Reason for Consult Date of Consultation: 03/13/18 History of Present Illness: The patient is a 67 year old male with a past cardiovascular history which is included hyperlipidemia, hypertension, diabetes mellitus, CAD, status post CABG, who presents for evaluation of chest/abdominal discomfort with subsequent findings of abnormal cardiac enzymes notation of a hypertensive urgency. The patient has been following with his primary telecommunication lines repairer at [facility] in [place], [place]. However he has been evaluated at [facility] on 02/17/2018 by Willis Frey MD of the [facility] for his cardiovascular condition. At that time he underwent evaluation with a transthoracic echocardiogram that demonstrated the left ventricle to have regional wall motion abnormalities with an LVEF of 45-50% with moderate left atrial enlargement, trivial MR, mild TR, and an estimated RV systolic pressure of 45 mmHg. He also underwent diagnostic cardiac catheterization which demonstrated the left ventricle to have an LVEF of 55%, the left main coronary artery had 40% stenosis, the LAD was occluded, the LCx had mid 50% stenosis, the RCA was occluded, a FLANNERY to the first diagonal branch was patent, and SVG graft to the left PDA was patent. Continued medical management. He states he has been in contact with his primary telecommunication lines repairer since that time including yesterday based upon his ongoing symptoms concerns and recommended increase of his nitrate therapy. However he has been noticing abdominal discomfort which he states radiates up to his lower chest area. His family states he intermittently complains of discomfort in his shoulder and left upper extremity area. He has denied any obvious evidence of orthopnea or PND or worsening peripheral pitting edema at this time. There is been no near syncope or syncope. He notes that his blood pressure has been difficult to control. It has been elevated. His family states that when his blood pressure is elevated he appears to be more symptomatic. He presented back to [facility] for further evaluation. He was noted to have a markedly elevated systolic blood pressure of 212 mmHg with a diastolic blood pressure of 104 mmHg. He was placed in the PCU for further evaluation. His cardiac enzymes have been indeterminant. His ECG has demonstrated sinus rhythm with no acute ECG changes. A chest x-ray was performed which raised concerns of a right lower lobe infiltrate/pneumonia. He was placed on medical management which included IV antibiotic therapy. [] Past Medical History Allergies/Adverse Reactions: Allergies hydrochlorothiazide Allergy (Verified 02/13/18 10:13) Unknown Penicillins [PCN] Allergy (Verified 02/13/18 10:13) Swelling pioglitazone [From Actos] Allergy (Verified 02/13/18 10:13) Unknown oxycodone [From OxyIR] Adverse Reaction (Verified 02/15/18 23:25) Other pravastatin Adverse Reaction (Verified 02/13/18 10:13) Pain in joints Home Medications: Ambulatory Orders Medication Instructions Recorded Aspirin [Aspirin EC] 81 mg PO DAILY 03/15/17 Bupropion HCl [Bupropion HCl ER] 100 mg PO LUNCH 03/15/17 Cilostazol 100 mg PO DAILY 03/15/17 Fluoxetine HCl [Prozac] 20 mg PO TID 03/15/17 Gabapentin [Neurontin] 300 mg PO TID 03/15/17 Insulin Human 70/30 [Novolog Mix 30 units SC BIDCM 03/15/17 70-30 Flexpen Syrn] Metoprolol Succinate [Toprol Xl] 12.5 mg PO QHS 03/15/17 Multivitamin [Multiple Vitamins] 1 each PO DAILY 03/15/17 buPROPion XL [Wellbutrin Xl] 300 mg PO DAILY 03/15/17 Isosorbide Mononitrate [Imdur] 120 mg PO DAILY 01/24/18 Quetiapine Fumarate [Seroquel] 25 mg PO BID 01/24/18 Clopidogrel Bisulfate [Plavix] 75 mg PO DAILY #30 tablet 02/20/18 Donepezil HCl [Aricept] 10 mg PO QHS #30 tablet 02/20/18 Lisinopril [Zestril] 20 mg PO DAILY 03/13/18 Metformin HCl [Glucophage] 1,500 mg PO DAILY 03/13/18 Past Medical History (Chronic Problems): Chronic Problems Coronary artery disease (Chronic) S/P CABG (coronary artery bypass graft) (Chronic) HLD (hyperlipidemia) (Chronic) HTN (hypertension) (Chronic) 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 Denies: Shortness of Breath, Orthopnea, PND, Peripheral Edema, Palpitations, Lightheadedness, Dizziness, Near Syncope, Syncope Respiratory: Denies: Cough, Sputum Production, Hemoptysis Gastrointestinal: Reports: Abdominal Discomfort. Denies: Hematemesis, Hematochezia, Melena Genitourinary: Denies: Dysuria, Hematuria Skin: Denies: Rash Subjectve: This is a 67-year-old white male who appears to be resting comfortably at the moment in no acute distress. Objective: Vital Signs Temp Pulse Resp BP Pulse Ox 96.7 F L 87 16 165/95 H 97 03/13/18 12:30 03/13/18 12:30 03/13/18 12:30 03/13/18 12:30 03/13/18 12:30 Oxygen Flow Rate (L/min) 2 Oxygen Delivery Method Room Air Weight: 241 lb 10.026 oz Body Mass Index (BMI) 37.8 Finger Stick Blood Glucose 272 Intake and Output for Last 24 Hours 03/11/18 03/12/18 03/13/18 23:59 23:59 23:59 Intake Total 927 / 927 Output Total 700 / 700 Balance 227 / 227 General: Awake, Alert, Oriented x 3, Cooperative, No Acute Distress HEENT: Atraumatic, Normocephalic, PERRL, EOMI, Sclera Non Icteric Oral: Moist Mucosa Neck: Supple, Good ROM, No JVD Lungs: Clear to auscultation Cardiovascular: Regular Rhythm, Normal S1, Normal S2 Abdomen: Bowel Sounds Present, Soft, Non Tender Extremities: No Cyanosis, No Clubbing, No edema Neurological: No Focal Motor or Sensory Deficit Psych/Mental Status: Appropriate, Normal Affect 03/13/18 04:32: WBC 6.8, RBC 3.95 L, Hgb 11.5 L, Hct 36.0 L, MCV 91.1, MCH 29.1, MCHC 31.9 L, RDW 13.2, RDW Differential 44.1 H, Plt Count 320, MPV 11.3, Immature Gran % (Auto) 0.100, Neut % (Auto) 56.5, Lymph % (Auto) 31.0, Stoddard % (Auto) 4.6, Eos % (Auto) 7.1 H, Baso % (Auto) 0.7, Absolute Neuts (auto) 3.8, Total Counted Not Reportable 03/13/18 04:32: Sodium 140, Potassium 4.4, Chloride 102, Carbon Dioxide 28.0, Anion Gap 10, BUN 18, Creatinine 1.08, Est GFR (MDRD) Af Amer 88, Est GFR (MDRD) Non-Af 72, BUN/Creatinine Ratio 16.7, Glucose 164 H, Calcium 9.3, Troponin I < 0.015 03/13/18 07:24: Troponin I 0.048 H 03/13/18 10:20: Troponin I 0.093 H Rhythm: Sinus rhythm EKG: Sinus rhythm ECHO: As noted above Cardiac Cath: As noted above CXR: As noted above Assessment/Plan 1. Abnormal cardiac enzymes The patient does have abnormal cardiac enzymes. They appear to be indeterminate. The etiology may be secondary to the patient's underlying hypertensive superimposed on his underlying known CAD process as opposed to a new primary acute coronary syndrome event. The patient was recently evaluated both noninvasively and invasively with the results as noted above. He did not require additional PCI therapy. At the present time would be recommended to the patient continue to be monitored. He should continue medical management with an attempt to bring his blood pressure under better control. He should continue further evaluation care of his other ongoing issues with respect to concerns of possible pneumonia as well as consideration for further evaluation of his abdominal discomfort for any obvious peripheral arterial occlusive disease that has not been previously diagnosed. This may include ultrasound and/or CT scan studies of his abdominal aorta and/or peripheral vasculature. 2. CAD status post CABG Has undergone recent evaluation as noted above with respect to his underlying CAD and graft status. He was recommended for continued medical management. Thus an attempt will be made to optimize his medications based upon his disease process, associated symptoms, other objective findings, etc. It was not felt at the moment the patient needed to return to the cardiac catheterization laboratory. 3. Hypertensive urgency The patient has had recurrent hypertensive urgency with markedly elevated systolic and diastolic blood pressures. Again this may be a contributing factor to his abnormal cardiac enzymes, etc. He will continue medical management with attempts to bring his blood pressure under better control. 4. Hyperlipidemia The patient will continue lipid-lowering therapy. 5. Hypertension The patient does have a history of essential hypertension. Again his blood pressures have been elevated. He will continue medical management. 6. Diabetes mellitus The patient will continue care under the direction of internal medicine. 7. Pneumonia The patient has been placed on antibiotic therapy. 8. Abdominal discomfort It is unclear whether the patient's abdominal discomfort is truly related to his underlying cardiovascular disease or a separate gastrointestinal or abdominal etiology such as peripheral arterial occlusive disease. It would not be unreasonable noting the patient's cardiovascular/peripheral vascular risk factors for him to be evaluated with respect to his abdominal aorta with either ultrasound studies and/or CT scan studies as deemed appropriate if this is not already been accomplished. Comment: The above was discussed and reviewed with the patient and his multiple family members present. This note was generated using a voice recognition system and there may be incorrect words, spelling or punctuation that were not noted when reviewing the office note prior to saving.
[2018-03-13] MEDS: Ranolazine 500 MG Tablet PO ×2 (15:05→21:12)
[2018-03-13 16:46] LABS: Bedside Glucose 135 mg/dL (70-110)
[2018-03-13] MEDS: Metoprolol Tartrate 50 MG Tablet PO (21:12)
[2018-03-13] MEDS: Lisinopril 20 MG Tablet PO (21:12)
[2018-03-13] MEDS: Donepezil HCl 10 MG Tablet PO (21:12)
[2018-03-13] MEDS: Mag Hydrox/Al Hydrox/Simeth 30 ML UDC PO (21:24)
[2018-03-13 22:11] LABS: Bedside Glucose 71 mg/dL (70-110)
[2018-03-14] VITALS (13 sets, daily range): BP systolic 118–155; BP diastolic 68–83; PULSE 51–64; RESP 16–20; TEMP 36.8–37.1; O2SAT 94–96
--- NOTE | 2018-03-14 05:55 | AAVD_ITS ---
Reason For Study: Abdominal Pain Aorta Measurements Aorta Doppler Measurements Proximal aorta measures2.01cm x 2.04cm. in cross- Peak systolic flow velocities within the proximal sectional axis. aorta measure 73 cm/sec. Proximal aorta measures1.99cm. in longitudinal Peak systolic flow velocities within the mid aorta axis. measure 64 cm/sec. Mid aorta measures1.89cm x 2.04cm. in cross- Peak systolic flow velocities within the distal sectional axis. aorta measure 70 cm/sec. Mid aorta measures1.82cm. in longitudinal axis. Distal aorta measures1.71cm x 1.73cm. in cross- sectional axis. Distal aorta measures1.79cm. in longitudinal axis. Left Iliac Artery Left iliac artery measures 1.22cm x 1.16 cm. in the cross-sectional axis. Left iliac artery measures 1.24 cm. in the longitudinal axis. Peak systolic velocity in the left iliac artery measures 68 cm/sec. Right Iliac Artery Right iliac artery measures 1.29cm x 1.33 cm. in the cross-sectional axis. Right iliac artery measures 1.13 cm. in the longitudinal axis. Peak systolic velocity in the right iliac artery measures 84 cm/sec. Procedure Aorta IVC Iliac vasculature or bypass grafts 71709. Exam performed portable in patient room. Interpretation Summary Normal abdominal aorta with maximal proximal diameter 2.01 x 2.04cm and normal flow Left common iliac 1.22 x 1.16cm Right common iliac 1.29 x 1.33cm Ordering Physician: Bandar Villegas Referring Physician: Juve Reed Performed By: Marita Tesfaye, FAWAD, RVT
[2018-03-14 06:06] LABS: Hematocrit 34.9 % (40-54); Hemoglobin 11.4 g/dl (13.0-16.5); Mean Corp Hgb Conc 32.7 g/gl (32-36); Mean Corpuscular Hgb 29.8 pg (27.0-32.0); Mean Corpuscular Volume 91.4 fL (80-94); Mean Platelet Vol. 11.7 fl (6.2-12.0); Platelet Count 280 K/mm3 (150-450); RBC Distribution Width CV 13.2 % (11.6-14.6); RBC Distribution Width SD 43.1 fl (35.1-43.9); Red Blood Count 3.82 M/mm3 (4.6-6.2); White Blood Count 6.7 K/mm3 (4.4-11.0)
[2018-03-14 06:11] LABS: Scan Indicated on CBC? Y/N NO
[2018-03-14 06:42] LABS: ALB/GLOB Ratio 0.9 RATIO (0.9-2.4); AST(SGOT) 18 U/L (15-37); Alanine Aminotransfer ALT/SGPT 21 U/L (16-61); Albumin, Serum 3.2 g/dL (3.2-5.0); Alkaline Phosphatase 68 U/L (45-117); Anion Gap 8 (5-15); BUN 24 mg/dL (7-18); BUN/Creat Ratio 17.5 RATIO (10-20); Calcium,Total 9.1 mg/dL (8.5-10.1); Chloride 102 mmol/L (98-107); Cholesterol 198 mg/dL (200); Creatinine, Serum 1.37 mg/dL (0.70-1.30); EST Glomerular Filtration Rate 55 mL/min (>60); Est Glom Filt Rate - Afr Amer 67 mL/min (>60); Estimated Creatinine Clearance 48.92 ml/min; Globulin 3.6 g/dL (2.2-4.2); Glucose 123 mg/dL (74-106); High Density Lipoprotein 57 mg/dL; Potassium 4.1 mmol/L (3.5-5.1); Protein, Total 6.8 g/dL (6.4-8.2); Sodium Level 139 mmol/L (136-145); Thyroid Stim Hormone (TSH) 0.74 uIU/mL (0.358-3.74); Triglycerides 135 mg/dL; Very Low Density Lipoprotein 27 mg/dL (5-40)
[2018-03-14 06:46] LABS: Bedside Glucose 121 mg/dL (70-110)
[2018-03-14] MEDS: Aspirin E.C. 81 MG Tablet PO (09:01)
[2018-03-14] MEDS: Gabapentin 300 MG Capsule PO ×3 (09:02→16:52)
[2018-03-14] MEDS: Insulin Human 75/25 Kwickpen 30 UNIT SC ×2 (09:02→16:52)
[2018-03-14] MEDS: Metoprolol Tartrate 50 MG Tablet PO ×2 (09:04→21:32)
[2018-03-14] MEDS: Enoxaparin 40 MG/0.4 ML Syringe SC (09:04)
[2018-03-14] MEDS: amLODIPine 10 MG Tablet PO (09:04)
[2018-03-14] MEDS: Cilostazol 50 MG Tablet 100 MG PO (09:05)
[2018-03-14] MEDS: Clopidogrel Bisulfate 75 MG Tablet PO (09:05)
[2018-03-14] MEDS: Lisinopril 20 MG Tablet PO ×2 (09:07→21:34)
[2018-03-14] MEDS: buPROPion (XL) 300 MG TABLET.XL PO (09:07)
[2018-03-14] MEDS: Ranolazine 500 MG Tablet PO ×2 (09:07→21:32)
[2018-03-14] MEDS: QUEtiapine 25 MG Tablet PO ×2 (09:07→21:33)
--- NOTE | 2018-03-14 10:19 | PCM.PN.HOSP ---
Patient Problems: Active and Suspected Problems HCAP (healthcare-associated pneumonia) (Acute) Abnormal cardiac enzyme level (Acute) Abdominal discomfort (Acute) Subjective: Patient seen breathing somewhat improved. Patient was seen in consultation by cardiology plans for patient undergo ultrasound of the abdomen to evaluate his known AAA Objective: GENERAL: cooperative HEENT: Atraumatic; moist oral mucosa EYES; Anicteric, Normal Conjunctiva NECK; supple, normal thyroid, no distended JVD. RESPIRATORY: Diminished to auscultation bilaterally, CARDIOVASCULAR: Regular S1 S2, no audible murmurs GI: soft, non-tender, normoactive bowel sounds, : No Renal angle tenderness; EXTREMITIES: trace edema, no clubbing, no cyanosis. MUSCULOSKELETAL: No Joint Tenderness; no muscle waisting NEURO: Awake; no lateralizing signs. SKIN: No Rash PSYCH; Normal affect Vitals/I&O's: Vital Signs Temp Pulse Resp BP Pulse Ox 98.7 F 60 18 155/83 H 95 03/14/18 09:00 03/14/18 09:04 03/14/18 09:00 03/14/18 09:00 03/14/18 09:00 Oxygen Flow Rate (L/min) 2 Oxygen Delivery Method Room Air Weight: 109.6 kg Body Mass Index (BMI) 37.8 Finger Stick Blood Glucose 272 Intake and Output for Last 24 Hours 03/12/18 03/13/18 03/14/18 23:59 23:59 23:59 Intake Total 1587 / 1587 Output Total 2400 / 2400 300 / 300 Balance -813 / -813 -300 / -300 Laboratory Results 03/13/18 10:20: Troponin I 0.093 H 03/13/18 12:37: POC Glucose 205 H 03/13/18 16:40: POC Glucose 135 H 03/13/18 21:10: POC Glucose 71 03/14/18 05:30: WBC 6.7, RBC 3.82 L, Hgb 11.4 L, Hct 34.9 L, MCV 91.4, MCH 29.8, MCHC 32.7, RDW 13.2, RDW Differential 43.1, Plt Count 280, MPV 11.7 03/14/18 05:30: Sodium 139, Potassium 4.1, Chloride 102, Carbon Dioxide 29.0, Anion Gap 8, BUN 24 H, Creatinine 1.37 H, Estim Creat Clear Calc 48.92, Est GFR (MDRD) Af Amer 67, Est GFR (MDRD) Non-Af 55 L, BUN/Creatinine Ratio 17.5, Glucose 123 H, Calcium 9.1, Total Bilirubin 0.90, AST 18, ALT 21, Alkaline Phosphatase 68, Total Protein 6.8, Albumin 3.2, Globulin 3.6, Albumin/Globulin Ratio 0.9, Triglycerides 135, Cholesterol 198, LDL Cholesterol 114, VLDL Cholesterol 27, HDL Cholesterol 57, TSH 0.74 03/14/18 06:39: POC Glucose 121 H Current Medications Acetaminophen (Tylenol) 650 mg PO Q6H PRN PRN PRN Reason: PAIN Last Admin: 03/13/18 10:16 Dose: 650 mg Al Hydroxide/Mg Hydroxide (Mylanta Ii) 30 ml PO Q4H PRN PRN PRN Reason: INDIGESTION Last Admin: 03/13/18 21:24 Dose: 30 ml Amlodipine Besylate (Norvasc) 10 mg PO DAILY [facility] Last Admin: 03/14/18 09:04 Dose: 10 mg [facility] Last Admin: 03/14/18 09:01 Dose: 81 mg Bupropion HCl (Wellbutrin Xl) 300 mg PO DAILY [facility] Last Admin: 03/14/18 09:07 Dose: 300 mg Cilostazol (Pletal) 100 mg PO DAILY [facility] Last Admin: 03/14/18 09:05 Dose: 100 mg Clopidogrel Bisulfate (Plavix) 75 mg PO DAILY [facility] Last Admin: 03/14/18 09:05 Dose: 75 mg Dextrose (D50w Syringe) 0 gm IV X1 PRN; Protocol PRN Reason: Hypoglycemia Donepezil HCl (Aricept) 10 mg PO QHS [facility] Last Admin: 03/13/18 21:12 Dose: 10 mg Enoxaparin Sodium (Lovenox) 40 mg SC DAILY@1000 [facility] Last Admin: 03/14/18 09:04 Dose: 40 mg Fluoxetine HCl (Prozac) 20 mg PO TID [facility] Last Admin: 03/14/18 06:46 Dose: Not Given Gabapentin (Neurontin) 300 mg PO TIDCM [facility] Last Admin: 03/14/18 09:02 Dose: 300 mg Glucagon () 1 mg IM .X1 PRN PRN Reason: Hypoglycemia Hydralazine HCl (Apresoline Iv) 20 mg IV Q4H PRN PRN PRN Reason: Hypertensive Emergency Insulin Human Lispro (Humalog Kwikpen (Bkc)) [address] [facility]; Protocol Last Admin: 03/14/18 07:08 Dose: Not Given Isosorbide Mononitrate (Imdur) 120 mg PO DAILY [facility] Last Admin: 03/14/18 09:03 Dose: 120 mg Lisinopril (Zestril) 20 mg PO BID [facility] Last Admin: 03/14/18 09:07 Dose: 20 mg Magnesium Hydroxide (Milk Of Magnesia) 30 ml PO DAILY PRN PRN Reason: Constipation Metoprolol Tartrate (Lopressor (Beta Lobo)) 50 mg PO BID [facility] Last Admin: 03/14/18 09:04 Dose: 50 mg Nitroglycerin (Nitrostat) 0.4 mg SUBLINGUAL Q5M PRN PRN Reason: CHEST PAIN Quetiapine Fumarate (Seroquel) 25 mg PO BID [facility] Last Admin: 03/14/18 09:07 Dose: 25 mg Ranolazine (Ranexa) 500 mg PO BID [facility] Last Admin: 03/14/18 09:07 Dose: 500 mg Sodium Chloride () 5 - 15 ml IV UD PRN PRN Reason: SALINE FLUSH Last Admin: 03/13/18 10:30 Dose: 10 ml Medical Necessity - Tobacco Use Smoking Status: Never smoker Assessment/Plan All Active Problems Non-STEMI (non-ST elevated myocardial infarction) (Acute) HCAP (healthcare-associated pneumonia) (Acute) Abnormal cardiac enzyme level (Acute) Abdominal discomfort (Acute) Hypertensive urgency (Acute) Chest pain (Acute) Acute blood loss anemia (Acute) Patient is a 67-year-old gentleman who underwent left total knee arthroplasty on 02/15/[address] Seaman. Patient postoperative. Was complicated by development of acute non-STEMI. Patient underwent left heart catheterization on 02/20/2018 which demonstrated triple-vessel disease involving an occluded RCA, and occluded LAD 50% circumflex stenosis. Mild position of medical therapy was recommended by Dr. Frey with cardiology unless consideration for PCI if patient became symptomatic. Patient presented to the emergency department with exertional dyspnea and some shortness of breath and markedly elevated systolic blood pressure. 1. Unstable angina in a patient with known CAD. Patient has been admitted to a monitored bed treatment initiated per protocol with continuation of his dual antiplatelet therapy, beta blockers, therapeutic Lovenox as well as nitrates. Consultation placed to cardiology. Subsequent decision deferred to cardiology she was seen in consultation by Dr. Villegas his notes and recommendations reviewed 2. Acute hypertensive crisis patient systolic blood pressure upon admission was greater than 200 home medications continued with dose adjustment in addition to hydralazine as needed. Also added amlodipine to patient scheduled regimen 3. Pneumonia ruled out there was a questionable infiltrate on chest x-ray however patient was afebrile without leukocytosis saturating percent on room air. Antibiotics initiated on admission subsequently discontinued findings on chest x-ray attributed to atelectasis. Did initiate incentive spirometry treatment 4. Recent revision of left total knee arthroplasty by Dr. Seaman on 02/15/2018 5. Coronary artery disease with 2 previous CABG and a recent left heart catheterization results as stated above 6. Diabetes mellitus type II: Controlledpatient's oral hypoglycemics held. Placed on long acting insulin, Accu-Cheks a.c. and at bedtime and covered with sliding scale insulin 7. Previous history of DVT treated with Xarelto 8. Morbid obesity BMI of 30 seven-point 9. DVT prophylaxis: Lovenox Active Medications Acetaminophen (Tylenol) 650 mg PO Q6H PRN PRN PRN Reason: PAIN Last Admin: 03/13/18 10:16 Dose: 650 mg Al Hydroxide/Mg Hydroxide (Mylanta Ii) 30 ml PO Q4H PRN PRN PRN Reason: INDIGESTION Amlodipine Besylate (Norvasc) 10 mg PO DAILY [facility] Last Admin: 03/13/18 10:17 Dose: 81 mg Bupropion HCl (Wellbutrin Xl) 300 mg PO DAILY [facility] Last Admin: 03/13/18 10:17 Dose: 300 mg Cilostazol (Pletal) 100 mg PO DAILY [facility] Last Admin: 03/13/18 10:21 Dose: 100 mg Clopidogrel Bisulfate (Plavix) 75 mg PO DAILY [facility] Last Admin: 03/13/18 10:16 Dose: 75 mg Dextrose (D50w Syringe) 0 gm IV X1 PRN; Protocol PRN Reason: Hypoglycemia Donepezil HCl (Aricept) 10 mg PO QHS [facility] Enoxaparin Sodium (Lovenox) 40 mg SC DAILY@1000 [facility] Last Admin: 03/13/18 10:17 Dose: 40 mg Fluoxetine HCl (Prozac) 20 mg PO TID [facility] Last Admin: 03/13/18 12:39 Dose: 20 mg Gabapentin (Neurontin) 300 mg PO TIDCM [facility] Last Admin: 03/13/18 12:39 Dose: 300 mg Glucagon () 1 mg IM .X1 PRN PRN Reason: Hypoglycemia Hydralazine HCl (Apresoline Iv) 20 mg IV Q4H PRN PRN PRN Reason: Hypertensive Emergency Insulin Human Lispro (Humalog Kwikpen (Bkc)) 0 unit SQ ACHS [facility]; Protocol Last Admin: 03/13/18 12:38 Dose: 4 units Isosorbide Mononitrate (Imdur) 120 mg PO DAILY [facility] Last Admin: 03/13/18 10:18 Dose: 120 mg Lisinopril (Zestril) 20 mg PO BID [facility] Magnesium Hydroxide (Milk Of Magnesia) 30 ml PO DAILY PRN PRN Reason: Constipation Metoprolol Tartrate (Lopressor (Beta Lobo)) 50 mg PO BID [facility] Nitroglycerin (Nitrostat) 0.4 mg SUBLINGUAL Q5M PRN PRN Reason: CHEST PAIN Quetiapine Fumarate (Seroquel) 25 mg PO BID [facility] Last Admin: 03/13/18 12:37 Dose: 25 mg Ranolazine (Ranexa) 500 mg PO BID [facility] Sodium Chloride () 5 - 15 ml IV UD PRN PRN Reason: SALINE FLUSH Last Admin: 03/13/18 10:30 Dose: 10 ml Clinical Impression(s) from Imaging Studies Chest X-Ray 03/13/18 04:41 IMPRESSION: A right lower lobe opacity representing either a focus of pneumonia or atelectatic changes Electronically Signed: Juan Manuel Castellanos MD at 5:23 EST Tel , Service support , Code Visit Inpatient E&M: [address] [facility] L[facility]
--- NOTE | 2018-03-14 10:23 | PN_ITS ---
Patient Problems: Active and Suspected Problems HCAP (healthcare-associated pneumonia) (Acute) Abnormal cardiac enzyme level (Acute) Abdominal discomfort (Acute) Subjective: Patient seen breathing somewhat improved. Patient was seen in consultation by cardiology plans for patient undergo ultrasound of the abdomen to evaluate his known AAA Objective: GENERAL: cooperative HEENT: Atraumatic; moist oral mucosa EYES; Anicteric, Normal Conjunctiva NECK; supple, normal thyroid, no distended JVD. RESPIRATORY: Diminished to auscultation bilaterally, CARDIOVASCULAR: Regular S1 S2, no audible murmurs GI: soft, non-tender, normoactive bowel sounds, : No Renal angle tenderness; EXTREMITIES: trace edema, no clubbing, no cyanosis. MUSCULOSKELETAL: No Joint Tenderness; no muscle waisting NEURO: Awake; no lateralizing signs. SKIN: No Rash PSYCH; Normal affect Vitals/I&O's: Vital Signs Temp Pulse Resp BP Pulse Ox 98.7 F 60 18 155/83 H 95 03/14/18 09:00 03/14/18 09:04 03/14/18 09:00 03/14/18 09:00 03/14/18 09:00 Oxygen Flow Rate (L/min) 2 Oxygen Delivery Method Room Air Weight: 109.6 kg Body Mass Index (BMI) 37.8 Finger Stick Blood Glucose 272 Intake and Output for Last 24 Hours 03/12/18 03/13/18 03/14/18 23:59 23:59 23:59 Intake Total 1587 / 1587 Output Total 2400 / 2400 300 / 300 Balance -813 / -813 -300 / -300 Laboratory Results 03/13/18 10:20: Troponin I 0.093 H 03/13/18 12:37: POC Glucose 205 H 03/13/18 16:40: POC Glucose 135 H 03/13/18 21:10: POC Glucose 71 03/14/18 05:30: WBC 6.7, RBC 3.82 L, Hgb 11.4 L, Hct 34.9 L, MCV 91.4, MCH 29.8, MCHC 32.7, RDW 13.2, RDW Differential 43.1, Plt Count 280, MPV 11.7 03/14/18 05:30: Sodium 139, Potassium 4.1, Chloride 102, Carbon Dioxide 29.0, Anion Gap 8, BUN 24 H, Creatinine 1.37 H, Estim Creat Clear Calc 48.92, Est GFR (MDRD) Af Amer 67, Est GFR (MDRD) Non-Af 55 L, BUN/Creatinine Ratio 17.5, Glucose 123 H, Calcium 9.1, Total Bilirubin 0.90, AST 18, ALT 21, Alkaline Phosphatase 68, Total Protein 6.8, Albumin 3.2, Globulin 3.6, Albumin/Globulin Ratio 0.9, Triglycerides 135, Cholesterol 198, LDL Cholesterol 114, VLDL Cholesterol 27, HDL Cholesterol 57, TSH 0.74 03/14/18 06:39: POC Glucose 121 H Current Medications Acetaminophen (Tylenol) 650 mg PO Q6H PRN PRN PRN Reason: PAIN Last Admin: 03/13/18 10:16 Dose: 650 mg Al Hydroxide/Mg Hydroxide (Mylanta Ii) 30 ml PO Q4H PRN PRN PRN Reason: INDIGESTION Last Admin: 03/13/18 21:24 Dose: 30 ml Amlodipine Besylate (Norvasc) 10 mg PO DAILY [facility] Last Admin: 03/14/18 09:04 Dose: 10 mg [facility]) [facility] Last Admin: 03/14/18 09:01 Dose: 81 mg Bupropion HCl (Wellbutrin Xl) 300 mg PO DAILY [facility] Last Admin: 03/14/18 09:07 Dose: 300 mg Cilostazol (Pletal) 100 mg PO DAILY [facility] Last Admin: 03/14/18 09:05 Dose: 100 mg Clopidogrel Bisulfate (Plavix) 75 mg PO DAILY [facility] Last Admin: 03/14/18 09:05 Dose: 75 mg Dextrose (D50w Syringe) 0 gm IV X1 PRN; Protocol PRN Reason: Hypoglycemia Donepezil HCl (Aricept) 10 mg PO QHS [facility] Last Admin: 03/13/18 21:12 Dose: 10 mg Enoxaparin Sodium (Lovenox) 40 mg SC DAILY@1000 [facility] Last Admin: 03/14/18 09:04 Dose: 40 mg Fluoxetine HCl (Prozac) 20 mg PO TID [facility] Last Admin: 03/14/18 06:46 Dose: Not Given Gabapentin (Neurontin) 300 mg PO TIDCM [facility] Last Admin: 03/14/18 09:02 Dose: 300 mg Glucagon () 1 mg IM .X1 PRN PRN Reason: Hypoglycemia Hydralazine HCl (Apresoline Iv) 20 mg IV Q4H PRN PRN PRN Reason: Hypertensive Emergency Insulin Human Lispro (Humalog Kwikpen (Bkc)) 0 unit SQ [facility]; Protocol Last Admin: 03/14/18 07:08 Dose: Not Given Isosorbide Mononitrate (Imdur) 120 mg PO DAILY [facility] Last Admin: 03/14/18 09:03 Dose: 120 mg Lisinopril (Zestril) 20 mg PO BID [facility] Last Admin: 03/14/18 09:07 Dose: 20 mg Magnesium Hydroxide (Milk Of Magnesia) 30 ml PO DAILY PRN PRN Reason: Constipation Metoprolol Tartrate (Lopressor (Beta Lobo)) 50 mg PO BID [facility] Last Admin: 03/14/18 09:04 Dose: 50 mg Nitroglycerin (Nitrostat) 0.4 mg SUBLINGUAL Q5M PRN PRN Reason: CHEST PAIN Quetiapine Fumarate (Seroquel) 25 mg PO BID [facility] Last Admin: 03/14/18 09:07 Dose: 25 mg Ranolazine (Ranexa) 500 mg PO BID [facility] Last Admin: 03/14/18 09:07 Dose: 500 mg Sodium Chloride () 5 - 15 ml IV UD PRN PRN Reason: SALINE FLUSH Last Admin: 03/13/18 10:30 Dose: 10 ml Medical Necessity - Tobacco Use Smoking Status: Never smoker Assessment/Plan All Active Problems Non-STEMI (non-ST elevated myocardial infarction) (Acute) HCAP (healthcare-associated pneumonia) (Acute) Abnormal cardiac enzyme level (Acute) Abdominal discomfort (Acute) Hypertensive urgency (Acute) Chest pain (Acute) Acute blood loss anemia (Acute) Patient is a 67-year-old gentleman who underwent left total knee arthroplasty on 02/15/[address] Seaman. Patient postoperative. Was complicated by development of acute non-STEMI. Patient underwent left heart catheterization on 02/20/2018 which demonstrated triple-vessel disease involving an occluded RCA, and occluded LAD 50% circumflex stenosis. Mild position of medical therapy was recommended by Dr. Frey with cardiology unless consideration for PCI if patient became symptomatic. Patient presented to the emergency department with exertional dyspnea and some shortness of breath and markedly elevated systolic blood pressure. 1. Unstable angina in a patient with known CAD. Patient has been admitted to a monitored bed treatment initiated per protocol with continuation of his dual antiplatelet therapy, beta blockers, therapeutic Lovenox as well as nitrates. Consultation placed to cardiology. Subsequent decision deferred to cardiology she was seen in consultation by Dr. Villegas his notes and recommendations reviewed 2. Acute hypertensive crisis patient systolic blood pressure upon admission was greater than 200 home medications continued with dose adjustment in addition to hydralazine as needed. Also added amlodipine to patient scheduled regimen 3. Pneumonia ruled out there was a questionable infiltrate on chest x-ray however patient was afebrile without leukocytosis saturating percent on room air. Antibiotics initiated on admission subsequently discontinued findings on chest x-ray attributed to atelectasis. Did initiate incentive spirometry treatment 4. Recent revision of left total knee arthroplasty by Dr. Seaman on 02/15/2018 5. Coronary artery disease with 2 previous CABG and a recent left heart catheterization results as stated above 6. Diabetes mellitus type II: Controlledpatient's oral hypoglycemics held. Placed on long acting insulin, Accu-Cheks a.c. and at bedtime and covered with sliding scale insulin 7. Previous history of DVT treated with Xarelto 8. Morbid obesity BMI of 30 seven-point 9. DVT prophylaxis: Lovenox Active Medications Acetaminophen (Tylenol) 650 mg PO Q6H PRN PRN PRN Reason: PAIN Last Admin: 03/13/18 10:16 Dose: 650 mg Al Hydroxide/Mg Hydroxide (Mylanta Ii) 30 ml PO Q4H PRN PRN PRN Reason: INDIGESTION Amlodipine Besylate (Norvasc) 10 mg PO DAILY [facility] Aspirin (Ecotrin) [facility] Last Admin: 03/13/18 10:17 Dose: 81 mg Bupropion HCl (Wellbutrin Xl) 300 mg PO DAILY [facility] Last Admin: 03/13/18 10:17 Dose: 300 mg Cilostazol (Pletal) 100 mg PO DAILY [facility] Last Admin: 03/13/18 10:21 Dose: 100 mg Clopidogrel Bisulfate (Plavix) 75 mg PO DAILY [facility] Last Admin: 03/13/18 10:16 Dose: 75 mg Dextrose (D50w Syringe) 0 gm IV X1 PRN; Protocol PRN Reason: Hypoglycemia Donepezil HCl (Aricept) 10 mg PO QHS [facility] Enoxaparin Sodium (Lovenox) 40 mg SC DAILY@1000 [facility] Last Admin: 03/13/18 10:17 Dose: 40 mg Fluoxetine HCl (Prozac) 20 mg PO TID [facility] Last Admin: 03/13/18 12:39 Dose: 20 mg Gabapentin (Neurontin) 300 mg PO TIDCM [facility] Last Admin: 03/13/18 12:39 Dose: 300 mg Glucagon () 1 mg IM .X1 PRN PRN Reason: Hypoglycemia Hydralazine HCl (Apresoline Iv) 20 mg IV Q4H PRN PRN PRN Reason: Hypertensive Emergency Insulin Human Lispro (Humalog Kwikpen (Bkc)) 0 unit SQ [facility]; Protocol Last Admin: 03/13/18 12:38 Dose: 4 units Isosorbide Mononitrate (Imdur) 120 mg PO DAILY [facility] Last Admin: 03/13/18 10:18 Dose: 120 mg Lisinopril (Zestril) 20 mg PO BID [facility] Magnesium Hydroxide (Milk Of Magnesia) 30 ml PO DAILY PRN PRN Reason: Constipation Metoprolol Tartrate (Lopressor (Beta Lobo)) 50 mg PO BID [facility] Nitroglycerin (Nitrostat) 0.4 mg SUBLINGUAL Q5M PRN PRN Reason: CHEST PAIN Quetiapine Fumarate (Seroquel) 25 mg PO BID [facility] Last Admin: 03/13/18 12:37 Dose: 25 mg Ranolazine (Ranexa) 500 mg PO BID [facility] Sodium Chloride () 5 - 15 ml IV UD PRN PRN Reason: SALINE FLUSH Last Admin: 03/13/18 10:30 Dose: 10 ml Clinical Impression(s) from Imaging Studies Chest X-Ray 03/13/18 04:41 IMPRESSION: A right lower lobe opacity representing either a focus of pneumonia or atelectatic changes Electronically Signed: Juan Manuel Castellanos MD at 5:23 EST Tel , Service support , Code Visit Inpatient E&M: 11514 [facility] L[facility]
[2018-03-14 11:21] LABS: Bedside Glucose 160 mg/dL (70-110)
[2018-03-14] MEDS: Insulin Lispro 100 UNIT/ML INSULN.PEN SQ (12:36)
[2018-03-14] MEDS: FLUoxetine 20 MG Capsule PO ×2 (12:37→21:32)
--- NOTE | 2018-03-14 15:15 | PCM.PN.CARD ---
Subjectve: Patient continue to have intermittent substernal chest pain this morning, synchronized with episodes of hypertension. Blood pressure medicines have been adjusted. Despite his blood pressure being improved, he continues to have intermittent episodes of chest pain. Ultrasound of his abdomen was performed today, and preliminary results showed no significant aortic aneurysm. Objective: Vital Signs Temp Pulse Resp BP Pulse Ox 98.7 F 55 L 18 155/83 H 95 03/14/18 09:00 03/14/18 11:03 03/14/18 09:00 03/14/18 09:00 03/14/18 09:00 Oxygen Flow Rate (L/min) 2 Oxygen Delivery Method Room Air Weight: 241 lb 10.026 oz Body Mass Index (BMI) 37.8 Finger Stick Blood Glucose 272 Intake and Output for Last 24 Hours 03/12/18 03/13/18 03/14/18 23:59 23:59 23:59 Intake Total 1587 / 1587 240 / 240 Output Total 2400 / 2400 600 / 600 Balance -813 / -813 -360 / -360 General: Awake, Alert, Oriented x 3 HEENT: PERRL, EOMI, Sclera Non Icteric Neck: Supple, Good ROM, No Lymph Node Enlargement Lungs: Clear to auscultation Cardiovascular: Regular Rhythm, Normal S1, Normal S2, No Murmurs, No Rubs, No Gallops Vascular: No Carotid Bruits, Normal Femoral Pulses, Normal Radial Pulses, Normal Dorsalis Pedal Pulse, Normal Posterior Tibial Pulses Abdomen: Bowel Sounds Present, Soft, Non Tender, No HSM, No Organomegaly Extremities: No Cyanosis, No Clubbing, No edema Neurological: No Focal Motor or Sensory Deficit 03/14/18 05:30: WBC 6.7, RBC 3.82 L, Hgb 11.4 L, Hct 34.9 L, MCV 91.4, MCH 29.8, MCHC 32.7, RDW 13.2, RDW Differential 43.1, Plt Count 280, MPV 11.7 03/14/18 05:30: Sodium 139, Potassium 4.1, Chloride 102, Carbon Dioxide 29.0, Anion Gap 8, BUN 24 H, Creatinine 1.37 H, Est GFR (MDRD) Af Amer 67, Est GFR (MDRD) Non-Af 55 L, BUN/Creatinine Ratio 17.5, Glucose 123 H, Calcium 9.1, Total Bilirubin 0.90, Triglycerides 135, Cholesterol 198, LDL Cholesterol 114, VLDL Cholesterol 27, HDL Cholesterol 57 Rhythm: EKG: ECHO: Stress Test: Cardiac Cath: PCI: CT Surgery: Holter monitor: EPS: PPM: CXR: Chest CT Scan: Medical Necessity - Tobacco Use Smoking Status: Never smoker Assessment/Plan 1. Unstable angina: The patient underwent a repeat catheterization recently which demonstrated widely patent grafts, possibly significant coronary disease in his main left circumflex which gives way to very small distal vessels. This may be superimposed upon significant fluctuations in his blood pressure causing hypertension induced angina. I reviewed the patient's catheterization films and feel that the patient may benefit from intervention of his left circumflex system. No other vessels require intervention at this time. After much discussion with the patient and his family, we have agreed to proceed with intervention tomorrow morning of his left circumflex. We await the results of his ultrasound of his abdomen as well. The patient's symptoms may be related to fluctuations in his blood pressure, and to that end I agree with Imdur 120 mg in the morning, and I have added 30 mg in the evening to provide better coverage throughout the night. In addition I reviewed his chest x-ray which demonstrates a possible right lower lobe infiltrate and the patient did coy some benefit from antibiotic therapy although his chest pain had returned while he was laying in bed. His symptoms do not appear to be pleuritic in nature however. Would recommend continuing antibiotic therapy for possible pneumonia. He will continue baby aspirin and Plavix as well as his other antihypertensive medications. Plan for PCI of left circumflex tomorrow morning. Code Visit Inpatient E&M: 78907 Subs Hosp L2
--- NOTE | 2018-03-14 16:33 | CHAPLAIN ---
Type of Pastoral Visit _x__ Initial Visit ___ Follow-up Visit ___ On-call Visit ___ General Patient Visit ___ Spiritual Assessment ___ Family Conference ___ Bereavement ___ Rapid Response ___ Code Blue ___ Other (describe below) Pastoral Care Referral From _x__ Patient ___ Family ___ Nurse ___ Physician ___ Threader ___ Wire Technician _x - [facility] liaison - Other (describe below) Sacrament/Intervention _x__ Active listening ___ Anointing ___ Roman Catholic ___ Bereavement ___ Communion ___ Jada exploration ___ _x__ Life review _x__ Prayer ___ Reconciliation ___ Sacrament of Sick _x__ Supportive presence ___ Wedding ___ Other (describe below) Pastoral Comments patient was requesting prayer prior to his heart procedure
[2018-03-14 17:05] LABS: Bedside Glucose 87 mg/dL (70-110)
[2018-03-14 21:12] LABS: Bedside Glucose 118 mg/dL (70-110)
[2018-03-14] MEDS: Isosorbide Mononitrate 60 MG Tablet PO (21:31)
[2018-03-14] MEDS: Donepezil HCl 10 MG Tablet PO (21:31)
[2018-03-15] VITALS (30 sets, daily range): BP systolic 96–163; BP diastolic 41–91; PULSE 49–69; RESP 11–21; TEMP 36.3–36.7; O2SAT 93–98; BMI 37.7
[2018-03-15 02:53] LABS: Bacteria 0 SEEN /hpf (None Seen); Mucous, Urine 0 SEEN /hpf (<or=2+); Red Blood Cells-Urine 0 SEEN /hpf (0-5); Squamous Epithelial Cells - UA 0 SEEN /hpf (0-5)
[2018-03-15 02:54] LABS: Color, Urine Yellow (Yellow); Glucose, Dipstick Normal (Normal); Ketone-Dipstick Negative (Negative); Leukocyte Esterase-Dipstick Negative /ul (Negative); Nitrite-Dipstick Negative (Negative); Occult Blood-Urine Negative /ul (Negative); Protein-Dipstick Negative (Negative); Urine Bilirubin Dipstick Negative (Negative); Urine Clarity Clear (Clear); Urine Urobilinogen Normal (Normal)
[2018-03-15 03:07] LABS: Hyaline Cast 5-10 SEEN /lpf (0-5)
[2018-03-15 03:08] LABS: White Blood Cells 0-5 SEEN /hpf (0-5)
--- NOTE | 2018-03-15 03:15 | NURSING ---
Bladder scanned patient at this time per request - concerned and felt like possibly retaining - UA sent for heart cath preop - PT scanned for 44ml total. 12 and 32 scanned. Pt informed.
[2018-03-15 05:37] LABS: Absolute Lymphocyte Count 2.42 X10^3/ul (0.83-4.51); Basophil# 0.02 X10^3/uL; Basophil% 0.3 % (0-1); Eosinophils% 4.8 % (0-5); Hematocrit 33.2 % (40-54); Hemoglobin 10.8 g/dl (13.0-16.5); Lymphocyte # 2.42 X10^3/ul (4.0); Lymphocyte % 38.8 % (19-41); Mean Corp Hgb Conc 32.5 g/gl (32-36); Mean Corpuscular Hgb 29.6 pg (27.0-32.0); Mean Platelet Vol. 11.9 fl (6.2-12.0); Monocyte# 0.46 X10^3/uL; Monocyte% 7.4 % (0-10); Neutrophil # 3.02 X10^3/uL (2.7-7.7); Neutrophil % 48.5 % (47-70); Platelet Count 239 K/mm3 (150-450); RBC Distribution Width CV 13.2 % (11.6-14.6); RBC Distribution Width SD 42.9 fl (35.1-43.9); Red Blood Count 3.65 M/mm3 (4.6-6.2); White Blood Count 6.2 K/mm3 (4.4-11.0)
[2018-03-15 05:41] LABS: Prothrombin Time (Protime)PT. 13.3 SECONDS (11.7-14.9)
[2018-03-15 05:42] LABS: Partial Thromboplast Time 30.9 Seconds (24.1-36.2)
[2018-03-15 05:51] LABS: POSITIVE COUNT NO; POSITIVE DIFFERENTIAL NO; POSITIVE MORPHOLOGY NO
[2018-03-15 05:52] LABS: Anion Gap 9 (5-15); BUN 33 mg/dL (7-18); BUN/Creat Ratio 22.8 RATIO (10-20); Calcium,Total 9.1 mg/dL (8.5-10.1); Chloride 101 mmol/L (98-107); Creatinine, Serum 1.45 mg/dL (0.70-1.30); EST Glomerular Filtration Rate 51 mL/min (>60); Est Glom Filt Rate - Afr Amer 62 mL/min (>60); Estimated Creatinine Clearance 46.22 ml/min; Glucose 147 mg/dL (74-106); Potassium 4.2 mmol/L (3.5-5.1); Sodium Level 139 mmol/L (136-145)
--- NOTE | 2018-03-15 05:55 | EKG12_ITS ---
Test Reason : AM EKG Blood Pressure : / mmHG Vent. Rate : 054 BPM Atrial Rate : 054 BPM P-R Int : 156 ms QRS Dur : 110 ms QT Int : 480 ms P-R-T Axes : 022 003 059 degrees QTc Int : 455 ms Sinus bradycardia Incomplete right bundle branch block Borderline ECG When compared with ECG of 13-MAR-2018 12:58, MANUAL COMPARISON REQUIRED, DATA IS UNCONFIRMED Confirmed by JAYDA STODDARD, MARIANNA ([id number]), legal editor ANNA GLASGOW ([id number]) on 03/16/2018 3:05:09 PM Referred By: JAMARI Confirmed By:MARIANNA MONTELONGO MD
[2018-03-15] MEDS: 0.9% Normal Saline 1,000 ML 15 ML IV (06:36)
[2018-03-15] MEDS: FLUoxetine 20 MG Capsule PO ×3 (06:36→21:50)
[2018-03-15] MEDS: 0.9% NaCl Peripheral Flush Adult/Peds IV (06:36)
[2018-03-15] MEDS: Lisinopril 20 MG Tablet PO ×2 (06:38→21:50)
[2018-03-15] MEDS: Metoprolol Tartrate 50 MG Tablet PO ×2 (06:39→21:49)
[2018-03-15] MEDS: amLODIPine 10 MG Tablet PO (06:39)
[2018-03-15] MEDS: Clopidogrel Bisulfate 75 MG Tablet PO (06:39)
[2018-03-15] MEDS: Ranolazine 500 MG Tablet PO ×2 (06:39→21:50)
[2018-03-15] MEDS: Aspirin E.C. 81 MG Tablet PO (06:40)
[2018-03-15] MEDS: Cilostazol 50 MG Tablet 100 MG PO (06:41)
[2018-03-15 06:50] LABS: Bedside Glucose 151 mg/dL (70-110)
[2018-03-15] MEDS: DiphenhydrAMINE 25 MG Capsule 50 MG PO (06:54)
--- NOTE | 2018-03-15 06:55 | NURSING ---
Called Senior Bioinformatics Specialist at this time and gave report on patient - verified labs, meds given, last set of vitals. Benadryl given at this time.
--- NOTE | 2018-03-15 08:53 | CL.I_ITS ---
Patient Name: JHONNY GRIJALVA Study Date: 03/15/2018 Performing: Willis Frey MD Ht: 66.92 inches 170 cm : 1950 Wt: 242.51 lbs 110 kg Age: 67 Gender: male BSA: 2.19 PROCEDURE(S) PERFORMED [id number] W OR WO PTCA, SINGLE CORONARY ARTERY CLINICAL PROFILE AND CO-MORBIDITIES Patient presents with NSTEMI for urgent cardiac cath Indications: ACS > 24 hrs, Worsening Angina, Stable Known CAD Heart Failure: None Stress/Imaging Stress/Image Study Performed: No Angina Classification Anginal Classification w/in 2 Weeks: CCS IV CAD Presentations: Non-STEMI. Symptom onset Date/Time: 03/13/2018 Time Not Available Comorbidities/Risk Factors: Hypertension Dyslipidemia Diabetes Mellitus: Diabetes Therapy: Oral Prior CABG CONCLUSIONS Successful PTCA/JACI of proximal/mid LCX utilizing a 3.0 x 38 Promus Synergy, post dilated in distal 2 /3 with a 3.5 x 12 NC Balloon, and proximal 1/3 at 3.3 mm; 75%-->0%, no dissection. RECOMMENDATIONS Highly recommend quitting all tobacco products Follow up with primary cardiothoracic surgeon Risk factor modification ASA Indefinitley Plavix for at least 12 months Routine post interventional care Refer for Outpatient Cardiac Rehab Manual sheath removal per protocol Follow up with Dr. Frey Successful Mynx closure device to RFA. Pt will decide on whether to f/u with Dr Frey or Dr Schmid. DESCRIPTION OF PROCEDURE The patient arrived to the procedure lab. The risks and benefits of the procedure as well as a full d escription of our services here and current unavailability of surgical backup were fully explained to the patient and/or their significant other prior to the catheterization. The Timeout was completed, verifying the correct patient and procedure. The patient's procedural site was prepped and draped in the usual fashion. Local anesthetic was given subcutaneously to right groin region with Lidocaine 2%. Using a modified Seldinger technique, arterial access was obtained via the right femoral artery, a 6 Fr sheath was inserted.. EBU 3.75 Guide catheter was inserted and engaged into the LCA. BMW Lyon Guide wire was advan edu to the Circumflex. Emerge 2.0 x 12 Balloon catheter was inserted. Balloon catheter was advanced a cross lesion in the circumflex, mid. PTCA balloon inflated at 10 atms for 12 secs. PTCA balloon infla dunia at 10 atms for 10 secs. Balloon catheter was repositioned to additional lesion in the circumflex, proximal. PTCA balloon inflated at 6 atms for 12 secs. Angiogram performed post balloon dilatation. Synergy 3.0 x 38 Drug Eluting stent was inserted. Drug Eluting stent was advanced across the lesion i n the circumflex, mid. Angiogram performed pre stent deployment. Angiogram performed post stent deplo yment. NC Emerge 3.5 x 12 Balloon catheter was inserted. Balloon catheter was advanced across lesion in the circumflex, mid. Angiogram performed pre balloon dilatation. Balloon catheter was repositioned to additional lesion in the circumflex, proximal. Angiogram performed post balloon dilatation. Angiogram performed post balloon dilatation. Contrast was injected through the sheath and the Right Iliac and Femoral artery were assessed for possible closure device. The arterial sheath wa s pulled and a Mynx closure device was deployed for hemostasis INTERVENTION INFORMATION LESION SITE: Circumflex (Mid) Lesion Complexity: High/C, lesion at bifurcation: No, thrombus present: No, culprit lesion: Yes Pre Stenosis: 75 % Pre intervention THADDEUS flow: 3 PROCEDURE: Drug Eluting Stent with pre and post dilatation Post Stenosis: 0 % Post intervention THADDEUS flow: 3 Lesion Devices: Persaud .014 BMW Lyon Straight 190cm Medtronic 6 Fr EBU3.75 100cm Guide Catheter Jaydon Sci EMERGE MR 2.00x12 BALLOON Jaydon Sci Synergy MR JACI 3.00x38 Jaydon Sci NC EMERGE MR 3.50x12 BALLOON LESION SITE: Circumflex (Proximal) Lesion Devices: Persaud .014 BMW Lyon Straight 190cm Medtronic 6 Fr EBU3.75 100cm Guide Catheter Jaydon Sci EMERGE MR 2.00x12 BALLOON Jaydon Sci Synergy MR JACI 3.00x38 Jaydon Sci NC EMERGE MR 3.50x12 BALLOON COMPLICATIONS No Complications PROCEDURE MEDICATIONS Oxygen: 2 L/min via nasal cannula Heparin 6000 unit(s) IV 03/15/2018 08:22:22 Nitro 200 mcg IC 03/15/2018 08:24:07 Nitro 200 mcg IC 03/15/2018 08:24:07 IV Bolus: .9 NaCl 400 ml total 03/15/2018 08:23:39 IV Fluids: .9 NaCl decreased to 150 ml/hr 03/15/2018 08:40:49 SUMMARY OF HEMODYNAMIC DATA Time AIR REST ECG 07:49:45 AO 134/66 (90) SA 08:23:25 Signed By Willis Frey MD On 03/15/2018 8:52:39 AM Willis Frey MD
--- NOTE | 2018-03-15 08:58 | PCM.PN.HOSP ---
Patient Problems: Active and Suspected Problems HCAP (healthcare-associated pneumonia) (Acute) Abnormal cardiac enzyme level (Acute) Abdominal discomfort (Acute) Subjective: Underwent successful PTCA/JACI to approximately mid circumflex lesion by Dr. Frey on 03/15/18 Objective: GENERAL: cooperative HEENT: Atraumatic; moist oral mucosa EYES; Anicteric, Normal Conjunctiva NECK; supple, normal thyroid, no distended JVD. RESPIRATORY: Diminished to auscultation bilaterally, CARDIOVASCULAR: Regular S1 S2, no audible murmurs GI: soft, non-tender, normoactive bowel sounds, : No Renal angle tenderness; EXTREMITIES: trace edema, no clubbing, no cyanosis. MUSCULOSKELETAL: No Joint Tenderness; no muscle waisting NEURO: Awake; no lateralizing signs. SKIN: No Rash PSYCH; Normal affect Vitals/I&O's: Vital Signs Temp Pulse Resp BP Pulse Ox 97.6 F L 65 16 160/91 H 93 03/15/18 06:33 03/15/18 06:39 03/15/18 06:33 03/15/18 06:39 03/15/18 07:06 Oxygen Flow Rate (L/min) 2 Oxygen Delivery Method Room Air Weight: 109.6 kg Body Mass Index (BMI) 37.8 Finger Stick Blood Glucose 272 Intake and Output for Last 24 Hours 03/13/18 03/14/18 03/15/18 23:59 23:59 23:59 Intake Total 1587 / 1587 720 / 720 650 / 650 Output Total 2400 / 2400 600 / 600 700 / 700 Balance -813 / -813 120 / 120 -50 / -50 Laboratory Results 03/14/18 11:15: POC Glucose 160 H 03/14/18 16:48: POC Glucose 87 03/14/18 21:03: POC Glucose 118 H 03/15/18 02:41: Urine Color Yellow, Urine Clarity Clear, Urine pH 5.0, Ur Specific [place] 1.030, Urine Protein Negative, Urine Glucose (UA) Normal, Urine Ketones Negative, Urine Occult Blood Negative, Urine Nitrite Negative, Urine Bilirubin Negative, Urine Urobilinogen Normal, Ur Leukocyte Esterase Negative, Urine RBC 0 SEEN, Urine WBC 0-5 SEEN, Ur Squamous Epith Cells 0 SEEN, Urine Bacteria 0 SEEN, Hyaline Casts 5-10 SEEN, Urine Mucus 0 SEEN 03/15/18 05:00: WBC 6.2, RBC 3.65 L, Hgb 10.8 L, Hct 33.2 L, MCV 91.0, MCH 29.6, MCHC 32.5, RDW 13.2, RDW Differential 42.9, Plt Count 239, MPV 11.9, Immature Gran % (Auto) 0.200, Neut % (Auto) 48.5, Lymph % (Auto) 38.8, [place] % (Auto) 7.4, Eos % (Auto) 4.8, Baso % (Auto) 0.3, Absolute Neuts (auto) 3.0, Absolute Lymphs (auto) 2.42, Total Counted Not Reportable 03/15/18 05:00: PT 13.3, INR 1.0, APTT 30.9 03/15/18 05:00: Sodium 139, Potassium 4.2, Chloride 101, Carbon Dioxide 29.0, Anion Gap 9, BUN 33 H, Creatinine 1.45 H, Estim Creat Clear Calc 46.22, Est GFR (MDRD) Af Amer 62, Est GFR (MDRD) Non-Af 51 L, BUN/Creatinine Ratio 22.8 H, Glucose 147 H, Calcium 9.1 03/15/18 06:32: POC Glucose 151 H Current Medications Acetaminophen (Tylenol) 650 mg PO Q6H PRN PRN PRN Reason: PAIN Last Admin: 03/13/18 10:16 Dose: 650 mg Al Hydroxide/Mg Hydroxide (Mylanta Ii) 30 ml PO Q4H PRN PRN PRN Reason: INDIGESTION Last Admin: 03/13/18 21:24 Dose: 30 ml Amlodipine Besylate (Norvasc) 10 mg PO DAILY [facility] Last Admin: 03/15/18 06:39 Dose: 10 mg [facility] Last Admin: 03/15/18 06:40 Dose: 81 mg Bupropion HCl (Wellbutrin Xl) 300 mg PO DAILY [facility] Last Admin: 03/14/18 09:07 Dose: 300 mg Cilostazol (Pletal) 100 mg PO DAILY [facility] Last Admin: 03/15/18 06:41 Dose: 100 mg Clopidogrel Bisulfate (Plavix) 75 mg PO DAILY [facility] Last Admin: 03/15/18 06:39 Dose: 75 mg Dextrose (D50w Syringe) 0 gm IV X1 PRN; Protocol PRN Reason: Hypoglycemia Donepezil HCl (Aricept) 10 mg PO QHS [facility] Last Admin: 03/14/18 21:31 Dose: 10 mg Enoxaparin Sodium (Lovenox) 40 mg SC DAILY@1000 [facility] Last Admin: 03/14/18 09:04 Dose: 40 mg Fluoxetine HCl (Prozac) 20 mg PO TID [facility] Last Admin: 03/15/18 06:36 Dose: 20 mg Gabapentin (Neurontin) 300 mg PO TIDCM [facility] Last Admin: 03/14/18 16:52 Dose: 300 mg Glucagon () 1 mg IM .X1 PRN PRN Reason: Hypoglycemia Hydralazine HCl (Apresoline Iv) 20 mg IV Q4H PRN PRN PRN Reason: Hypertensive Emergency Sodium Chloride () 1,000 mls @ 15 mls/hr IV .Q48H [facility] Last Admin: 03/15/18 06:36 Dose: 15 mls/hr Insulin Human Lispro (Humalog Kwikpen (Bkc)) 0 unit SQ ACHS [facility]; Protocol Last Admin: 03/15/18 06:36 Dose: Not Given Isosorbide Mononitrate (Imdur) 120 mg PO DAILY [facility] Last Admin: 03/15/18 06:40 Dose: 120 mg Isosorbide Mononitrate (Imdur) 60 mg PO QHS [facility] Last Admin: 03/14/18 21:31 Dose: 60 mg Lisinopril (Zestril) 20 mg PO BID [facility] Last Admin: 03/15/18 06:38 Dose: 20 mg Magnesium Hydroxide (Milk Of Magnesia) 30 ml PO DAILY PRN PRN Reason: Constipation Metoprolol Tartrate (Lopressor (Beta Lobo)) 50 mg PO BID [facility] Last Admin: 03/15/18 06:39 Dose: 50 mg Nitroglycerin (Nitrostat) 0.4 mg SUBLINGUAL Q5M PRN PRN Reason: CHEST PAIN Quetiapine Fumarate (Seroquel) 25 mg PO BID [facility] Last Admin: 03/14/18 21:33 Dose: 25 mg Ranolazine (Ranexa) 500 mg PO BID [facility] Last Admin: 03/15/18 06:39 Dose: 500 mg Sodium Chloride () 5 - 15 ml IV UD PRN PRN Reason: SALINE FLUSH Last Admin: 03/15/18 06:36 Dose: 10 ml Medical Necessity - Tobacco Use Smoking Status: Never smoker Assessment/Plan All Active Problems Non-STEMI (non-ST elevated myocardial infarction) (Acute) HCAP (healthcare-associated pneumonia) (Acute) Abnormal cardiac enzyme level (Acute) Abdominal discomfort (Acute) Hypertensive urgency (Acute) Chest pain (Acute) Acute blood loss anemia (Acute) Patient is a 67-year-old gentleman who underwent left total knee arthroplasty on 02/15/[address] Seaman. Patient postoperative. Was complicated by development of acute non-STEMI. Patient underwent left heart catheterization on 02/20/2018 which demonstrated triple-vessel disease involving an occluded RCA, and occluded LAD 50% circumflex stenosis. Mild position of medical therapy was recommended by Dr. Frey with cardiology unless consideration for PCI if patient became symptomatic. Patient presented to the emergency department with exertional dyspnea and some shortness of breath and markedly elevated systolic blood pressure. 1. Unstable angina in a patient with known CAD. Patient has been admitted to a monitored bed treatment initiated per protocol with continuation of his dual antiplatelet therapy, beta blockers, therapeutic Lovenox as well as nitrates. Consultation placed to cardiology. Subsequent decision deferred to cardiology she was seen in consultation by Dr. Villegas his notes and recommendations reviewed. Patient underwent successful PTCA/JACI to approximately mid circumflex lesion by Dr. Frey on 03/15/18. Subsequently transferred to the intensive care unit following the procedure 2. Acute hypertensive crisis patient systolic blood pressure upon admission was greater than 200 home medications continued with dose adjustment in addition to hydralazine as needed. Also added amlodipine to patient scheduled regimen 3. Pneumonia ruled out there was a questionable infiltrate on chest x-ray however patient was afebrile without leukocytosis saturating percent on room air. Antibiotics initiated on admission subsequently discontinued findings on chest x-ray attributed to atelectasis. Did initiate incentive spirometry treatment 4. Recent revision of left total knee arthroplasty by Dr. Seaman on 02/15/2018 5. Coronary artery disease with 2 previous CABG and a recent left heart catheterization results as stated above 6. Diabetes mellitus type II: Controlledpatient's oral hypoglycemics held. Placed on long acting insulin, Accu-Cheks a.c. and at bedtime and covered with sliding scale insulin 7. Previous history of DVT treated with Xarelto 8. Morbid obesity BMI of 30 seven-point 9. DVT prophylaxis: Lovenox Code Visit Inpatient E&M: 69460 Subs Hosp L3
--- NOTE | 2018-03-15 09:03 | PN_ITS ---
Patient Problems: Active and Suspected Problems HCAP (healthcare-associated pneumonia) (Acute) Abnormal cardiac enzyme level (Acute) Abdominal discomfort (Acute) Subjective: Underwent successful PTCA/JACI to approximately mid circumflex lesion by Dr. Frey on 03/15/18 Objective: GENERAL: cooperative HEENT: Atraumatic; moist oral mucosa EYES; Anicteric, Normal Conjunctiva NECK; supple, normal thyroid, no distended JVD. RESPIRATORY: Diminished to auscultation bilaterally, CARDIOVASCULAR: Regular S1 S2, no audible murmurs GI: soft, non-tender, normoactive bowel sounds, : No Renal angle tenderness; EXTREMITIES: trace edema, no clubbing, no cyanosis. MUSCULOSKELETAL: No Joint Tenderness; no muscle waisting NEURO: Awake; no lateralizing signs. SKIN: No Rash PSYCH; Normal affect Vitals/I&O's: Vital Signs Temp Pulse Resp BP Pulse Ox 97.6 F L 65 16 160/91 H 93 03/15/18 06:33 03/15/18 06:39 03/15/18 06:33 03/15/18 06:39 03/15/18 07:06 Oxygen Flow Rate (L/min) 2 Oxygen Delivery Method Room Air Weight: 109.6 kg Body Mass Index (BMI) 37.8 Finger Stick Blood Glucose 272 Intake and Output for Last 24 Hours 03/13/18 03/14/18 03/15/18 23:59 23:59 23:59 Intake Total 1587 / 1587 720 / 720 650 / 650 Output Total 2400 / 2400 600 / 600 700 / 700 Balance -813 / -813 120 / 120 -50 / -50 Laboratory Results 03/14/18 11:15: POC Glucose 160 H 03/14/18 16:48: POC Glucose 87 03/14/18 21:03: POC Glucose 118 H 03/15/18 02:41: Urine Color Yellow, Urine Clarity Clear, Urine pH 5.0, Ur Specific [place] 1.030, Urine Protein Negative, Urine Glucose (UA) Normal, Urine Ketones Negative, Urine Occult Blood Negative, Urine Nitrite Negative, Urine Bilirubin Negative, Urine Urobilinogen Normal, Ur Leukocyte Esterase Negative, Urine RBC 0 SEEN, Urine WBC 0-5 SEEN, Ur Squamous Epith Cells 0 SEEN, Urine Bacteria 0 SEEN, Hyaline Casts 5-10 SEEN, Urine Mucus 0 SEEN 03/15/18 05:00: WBC 6.2, RBC 3.65 L, Hgb 10.8 L, Hct 33.2 L, MCV 91.0, MCH 29.6, MCHC 32.5, RDW 13.2, RDW Differential 42.9, Plt Count 239, MPV 11.9, Immature Gran % (Auto) 0.200, Neut % (Auto) 48.5, Lymph % (Auto) 38.8, [place] % (Auto) 7.4, Eos % (Auto) 4.8, Baso % (Auto) 0.3, Absolute Neuts (auto) 3.0, Absolute Lymphs (auto) 2.42, Total Counted Not Reportable 03/15/18 05:00: PT 13.3, INR 1.0, APTT 30.9 03/15/18 05:00: Sodium 139, Potassium 4.2, Chloride 101, Carbon Dioxide 29.0, Anion Gap 9, BUN 33 H, Creatinine 1.45 H, Estim Creat Clear Calc 46.22, Est GFR (MDRD) Af Amer 62, Est GFR (MDRD) Non-Af 51 L, BUN/Creatinine Ratio 22.8 H, Glucose 147 H, Calcium 9.1 03/15/18 06:32: POC Glucose 151 H Current Medications Acetaminophen (Tylenol) 650 mg PO Q6H PRN PRN PRN Reason: PAIN Last Admin: 03/13/18 10:16 Dose: 650 mg Al Hydroxide/Mg Hydroxide (Mylanta Ii) 30 ml PO Q4H PRN PRN PRN Reason: INDIGESTION Last Admin: 03/13/18 21:24 Dose: 30 ml Amlodipine Besylate (Norvasc) 10 mg PO DAILY [facility] Last Admin: 03/15/18 06:39 Dose: 10 mg [facility] Last Admin: 03/15/18 06:40 Dose: 81 mg Bupropion HCl (Wellbutrin Xl) 300 mg PO DAILY [facility] Last Admin: 03/14/18 09:07 Dose: 300 mg Cilostazol (Pletal) 100 mg PO DAILY [facility] Last Admin: 03/15/18 06:41 Dose: 100 mg Clopidogrel Bisulfate (Plavix) 75 mg PO DAILY [facility] Last Admin: 03/15/18 06:39 Dose: 75 mg Dextrose (D50w Syringe) 0 gm IV X1 PRN; Protocol PRN Reason: Hypoglycemia Donepezil HCl (Aricept) 10 mg PO QHS [facility] Last Admin: 03/14/18 21:31 Dose: 10 mg Enoxaparin Sodium (Lovenox) 40 mg SC DAILY@1000 [facility] Last Admin: 03/14/18 09:04 Dose: 40 mg Fluoxetine HCl (Prozac) 20 mg PO TID [facility] Last Admin: 03/15/18 06:36 Dose: 20 mg Gabapentin (Neurontin) 300 mg PO TIDCM [facility] Last Admin: 03/14/18 16:52 Dose: 300 mg Glucagon () 1 mg IM .X1 PRN PRN Reason: Hypoglycemia Hydralazine HCl (Apresoline Iv) 20 mg IV Q4H PRN PRN PRN Reason: Hypertensive Emergency Sodium Chloride () 1,000 mls @ 15 mls/hr IV .Q48H [facility] Last Admin: 03/15/18 06:36 Dose: 15 mls/hr Insulin Human Lispro (Humalog Kwikpen (Bkc)) 0 unit SQ ACHS [facility]; Protocol Last Admin: 03/15/18 06:36 Dose: Not Given Isosorbide Mononitrate (Imdur) 120 mg PO DAILY [facility] Last Admin: 03/15/18 06:40 Dose: 120 mg Isosorbide Mononitrate (Imdur) 60 mg PO QHS [facility] Last Admin: 03/14/18 21:31 Dose: 60 mg Lisinopril (Zestril) 20 mg PO BID [facility] Last Admin: 03/15/18 06:38 Dose: 20 mg Magnesium Hydroxide (Milk Of Magnesia) 30 ml PO DAILY PRN PRN Reason: Constipation Metoprolol Tartrate (Lopressor (Beta Lobo)) 50 mg PO BID [facility] Last Admin: 03/15/18 06:39 Dose: 50 mg Nitroglycerin (Nitrostat) 0.4 mg SUBLINGUAL Q5M PRN PRN Reason: CHEST PAIN Quetiapine Fumarate (Seroquel) 25 mg PO BID [facility] Last Admin: 03/14/18 21:33 Dose: 25 mg Ranolazine (Ranexa) 500 mg PO BID [facility] Last Admin: 03/15/18 06:39 Dose: 500 mg Sodium Chloride () 5 - 15 ml IV UD PRN PRN Reason: SALINE FLUSH Last Admin: 03/15/18 06:36 Dose: 10 ml Medical Necessity - Tobacco Use Smoking Status: Never smoker Assessment/Plan All Active Problems Non-STEMI (non-ST elevated myocardial infarction) (Acute) HCAP (healthcare-associated pneumonia) (Acute) Abnormal cardiac enzyme level (Acute) Abdominal discomfort (Acute) Hypertensive urgency (Acute) Chest pain (Acute) Acute blood loss anemia (Acute) Patient is a 67-year-old gentleman who underwent left total knee arthroplasty on 02/15/[address] Seaman. Patient postoperative. Was complicated by development of acute non-STEMI. Patient underwent left heart catheterization on 02/20/2018 which demonstrated triple-vessel disease involving an occluded RCA, and occluded LAD 50% circumflex stenosis. Mild position of medical therapy was recommended by Dr. Frey with cardiology unless consideration for PCI if patient became symptomatic. Patient presented to the emergency department with exertional dyspnea and some shortness of breath and markedly elevated systolic blood pressure. 1. Unstable angina in a patient with known CAD. Patient has been admitted to a monitored bed treatment initiated per protocol with continuation of his dual antiplatelet therapy, beta blockers, therapeutic Lovenox as well as nitrates. Consultation placed to cardiology. Subsequent decision deferred to cardiology she was seen in consultation by Dr. Villegas his notes and recommendations reviewed. Patient underwent successful PTCA/JACI to approximately mid circumflex lesion by Dr. Frey on 03/15/18. Subsequently transferred to the intensive care unit following the procedure 2. Acute hypertensive crisis patient systolic blood pressure upon admission was greater than 200 home medications continued with dose adjustment in addition to hydralazine as needed. Also added amlodipine to patient scheduled regimen 3. Pneumonia ruled out there was a questionable infiltrate on chest x-ray however patient was afebrile without leukocytosis saturating percent on room air. Antibiotics initiated on admission subsequently discontinued findings on chest x-ray attributed to atelectasis. Did initiate incentive spirometry treatment 4. Recent revision of left total knee arthroplasty by Dr. Seaman on 02/15/2018 5. Coronary artery disease with 2 previous CABG and a recent left heart catheterization results as stated above 6. Diabetes mellitus type II: Controlledpatient's oral hypoglycemics held. Placed on long acting insulin, Accu-Cheks a.c. and at bedtime and covered with sliding scale insulin 7. Previous history of DVT treated with Xarelto 8. Morbid obesity BMI of 30 seven-point 9. DVT prophylaxis: Lovenox Code Visit Inpatient E&M: 55601 Subs Hosp L3
--- NOTE | 2018-03-15 09:23 | CASEMGMT ---
Readmission chart review: Pt was initially admitted on 02/13-02/20 for revision left total knee replacement all femoral and tibial components and set up with [facility] for RN and PT and sent home with a walker as well. See CM assessment completed by Rene on 02/14/18. PT/OT have assessed pt and recommend home with resumption of home therapy at this time. Resumption of care order placed at this time. CM to follow for any further discharge planning/needs. SStaten RN CM
[2018-03-15] MEDS: 0.9% Normal Saline 1,000 ML 150 ML IV (09:30)
[2018-03-15 09:31] LABS: ACT Activated Clotting Time 175 sec (74-137)
--- NOTE | 2018-03-15 09:54 | EKG12_ITS ---
Test Reason : POST PCI Blood Pressure : / mmHG Vent. Rate : 050 BPM Atrial Rate : 050 BPM P-R Int : 152 ms QRS Dur : 110 ms QT Int : 500 ms P-R-T Axes : 001 022 071 degrees QTc Int : 455 ms Sinus bradycardia Otherwise normal ECG When compared with ECG of 15-MAR-2018 05:22, MANUAL COMPARISON REQUIRED, DATA IS UNCONFIRMED Confirmed by JAYDA STODDARD, MARIANNA ([id number]), continuity editor ANNA GLASGOW ([id number]) on 03/19/2018 2:55:44 PM Referred By: KAREN Confirmed By:MARIANNA MONTELONGO MD
[2018-03-15] MEDS: QUEtiapine 25 MG Tablet PO ×2 (10:26→21:50)
[2018-03-15] MEDS: Gabapentin 300 MG Capsule PO ×3 (10:26→17:03)
[2018-03-15] MEDS: buPROPion (XL) 300 MG TABLET.XL PO (10:26)
[2018-03-15 10:46] LABS: Bedside Glucose 146 mg/dL (70-110)
[2018-03-15] MEDS: Insulin Human 75/25 Kwickpen 30 UNIT SC ×2 (11:27→17:02)
--- NOTE | 2018-03-15 12:53 | CRPHASE1 ---
Patient Data/Charges Emergency Department Coordinator:: Willis Frey Refer Phase II:: Yes Phase II Referral:: [facility] Start Phase II:: after follow up visit with Cardiology Phase I Charge:: Level I - Education Risk Factors/Lifestyle Smoking Status: Never smoker Hx Hypertension: Yes Hx Diabetes Mellitus Type 2: Yes Hx Dyslipidemia: Yes Hx Obesity: Yes Height: 5 ft 7 in Weight:: 241 lb BMI: 37.7 Stress: Recent, Long-standing ETOH: No Risk Factor for Sedentary Lifestyle: Highest Risk Past Cardiac Illness: Coronary Artery Disease, Coronary Artery Bypass Graft Laboratory Values: Cardiac Rehab Phase I Labs Triglycerides 135 mg/dL (-199) 03/14/18 05:30 Cholesterol 198 mg/dL (200) 03/14/18 05:30 LDL Cholesterol 114 mg/dL (0-130) 03/14/18 05:30 HDL Cholesterol 57 mg/dL (40-) 03/14/18 05:30 Phase I Education Given On:: [place], Nutrition, Antiplatelet medication, CHF, Diabetes - Type II Issues Affecting Care:: Physical - recent knee surg and having home health for therapy Knowledge of Condition:: Yes Learning Preferences: Verbal, Written, Audio/Visual, Demonstration Medical/Surgical History [place]:: Yes Angina:: Yes CAD:: Yes Diabetes Type II:: Yes Hypertension:: Yes Dyslipidemia:: Yes CABG: Yes Orthopedic:: Yes - recent knee surg Discharge/Home/Social Eval Marital Status:
--- NOTE | 2018-03-15 12:57 | CRPHASE1_ITS ---
Patient Data/Charges Shift Supervisor Rn:: Willis Frey Refer Phase II:: Yes Phase II Referral:: [facility] Start Phase II:: after follow up visit with Cardiology Phase I Charge:: Level I - Education Risk Factors/Lifestyle Smoking Status: Never smoker Hx Hypertension: Yes Hx Diabetes Mellitus Type 2: Yes Hx Dyslipidemia: Yes Hx Obesity: Yes Height: 5 ft 7 in Weight:: 241 lb BMI: 37.7 Stress: Recent, Long-standing ETOH: No Risk Factor for Sedentary Lifestyle: Highest Risk Past Cardiac Illness: Coronary Artery Disease, Coronary Artery Bypass Graft Laboratory Values: Cardiac Rehab Phase I Labs Triglycerides 135 mg/dL (-199) 03/14/18 05:30 Cholesterol 198 mg/dL (200) 03/14/18 05:30 LDL Cholesterol 114 mg/dL (0-130) 03/14/18 05:30 HDL Cholesterol 57 mg/dL (40-) 03/14/18 05:30 Phase I Education Given On:: [place], Nutrition, Antiplatelet medication, CHF, Diabetes - Type II Issues Affecting Care:: Physical - recent knee surg and having home health for therapy Knowledge of Condition:: Yes Learning Preferences: Verbal, Written, Audio/Visual, Demonstration Medical/Surgical History [place]:: Yes Angina:: Yes CAD:: Yes Diabetes Type II:: Yes Hypertension:: Yes Dyslipidemia:: Yes CABG: Yes Orthopedic:: Yes - recent knee surg Discharge/Home/Social Eval Marital Status:
--- NOTE | 2018-03-15 12:57 | CRPH1.INSTRU ---
General Education CAD and cardiac anatomy and function:: Patient communicates acknowledgment, Needs reinforcement Explanation of diagnoses and procedures:: Patient communicates acknowledgment, Needs reinforcement Sign/Symptoms of [place]:: Patient communicates acknowledgment, Needs reinforcement Antiplatelet therapy: Patient communicates acknowledgment, Needs reinforcement Proper use of NTG-SL: Patient communicates acknowledgment, Needs reinforcement Emergency procedures and activation of EMS: Patient communicates acknowledgment, Needs reinforcement Compliance of all prescribed medications: Patient communicates acknowledgment, Needs reinforcement Smoking Patient Nicotine/Smoking Risk Factors Are:: Non-smoker Recommendations Include:: Second-hand smoke recommendation Nicotine/Smoking Response Code:: Patient communicates acknowledgment, Family communicates acknowledgment Dyslipidemia Patient Dyslipidemia Risk Factors Are:: Total Cholesterol, Triglycerides, HDL, LDL Recommendations Include:: Lipid profile provided, Reviewed NCEP/ATP guidelines, Therapeutic Lifestyle Change dietary guidelines Dyslipidemia Response Code:: Patient communicates acknowledgment, Needs reinforcement Overweight/Obesity Patient Overweight/Obesity Risk Factors Are:: Obesity - > or = 30 Recommendations Include:: Weight loss of 5-10%, Reduced calorie diet, Exercise 5-7 times/week Overweight/Obesity:: Patient communicates acknowledgment, Needs reinforcement Hypertension Recommendations Include:: BP <130/80 if diabetic, DASH dietary guidelines, Decrease/maintain normal body weight, Moderation of ETOH Hypertension:: Patient communicates acknowledgment, Needs reinforcement Heart Disease Patient Heart Disease Risk Factors Are:: Family history of heart disease < 65 years old, Previous cardiac event Recommendations Include:: Educated family members of their risk, Educated family members of importance of prevention of heart disease Heart Disease Response Code:: Patient communicates acknowledgment, Family communicates acknowledgment, Needs reinforcement Diabetes Patient Diabetes Risk Factors Are:: Elevated blood sugars Recommendations Include:: Maintain fasting blood sugars 70-110 md/dL, Maintain HgbA1c of 6% or less, Monitor blood sugar as prescribed, Diabetic dietary guidelines, Decrease/maintain body weight Diabetes:: Patient communicates acknowledgment, Family communicates acknowledgment, Needs reinforcement Metabolic Syndrome Recommendations Include:: Patient is diabetic Metabolic Syndrome Response Code:: Not instructed Sedentary Patient Sedentary Risk Factors Are:: Lack of regular exercise Recommendations Include:: Aerobic exercise 5-7 times/week for 20-30 minutes continuously, Benefits of regular exercise, Discussed home walking program, Monitored Outpatient Cardiac Rehab Sedentary Response Code:: Patient communicates acknowledgment, Family communicates acknowledgment, Needs reinforcement Stress Recommendations Include:: Identification of stressors, and assessment of coping skills, Stress management techniques Stress Response Code:: Patient communicates acknowledgment, Needs reinforcement
--- NOTE | 2018-03-15 13:01 | CRPH1.INST_ITS ---
General Education CAD and cardiac anatomy and function:: Patient communicates acknowledgment, Needs reinforcement Explanation of diagnoses and procedures:: Patient communicates acknowledgment, Needs reinforcement Sign/Symptoms of MN:: Patient communicates acknowledgment, Needs reinforcement Antiplatelet therapy: Patient communicates acknowledgment, Needs reinforcement Proper use of NTG-SL: Patient communicates acknowledgment, Needs reinforcement Emergency procedures and activation of EMS: Patient communicates acknowledgment, Needs reinforcement Compliance of all prescribed medications: Patient communicates acknowledgment, Needs reinforcement Smoking Patient Nicotine/Smoking Risk Factors Are:: Non-smoker Recommendations Include:: Second-hand smoke recommendation Nicotine/Smoking Response Code:: Patient communicates acknowledgment, Family communicates acknowledgment Dyslipidemia Patient Dyslipidemia Risk Factors Are:: Total Cholesterol, Triglycerides, HDL, LDL Recommendations Include:: Lipid profile provided, Reviewed NCEP/ATP guidelines, Therapeutic Lifestyle Change dietary guidelines Dyslipidemia Response Code:: Patient communicates acknowledgment, Needs reinforcement Overweight/Obesity Patient Overweight/Obesity Risk Factors Are:: Obesity - > or = 30 Recommendations Include:: Weight loss of 5-10%, Reduced calorie diet, Exercise 5 -7 times/week Overweight/Obesity:: Patient communicates acknowledgment, Needs reinforcement Hypertension Recommendations Include:: BP <130/80 if diabetic, DASH dietary guidelines, Decrease/maintain normal body weight, Moderation of ETOH Hypertension:: Patient communicates acknowledgment, Needs reinforcement Heart Disease Patient Heart Disease Risk Factors Are:: Family history of heart disease < 65 years old, Previous cardiac event Recommendations Include:: Educated family members of their risk, Educated family members of importance of prevention of heart disease Heart Disease Response Code:: Patient communicates acknowledgment, Family communicates acknowledgment, Needs reinforcement Diabetes Patient Diabetes Risk Factors Are:: Elevated blood sugars Recommendations Include:: Maintain fasting blood sugars 70-110 md/dL, Maintain HgbA1c of 6% or less, Monitor blood sugar as prescribed, Diabetic dietary guidelines, Decrease/maintain body weight Diabetes:: Patient communicates acknowledgment, Family communicates acknowledgment, Needs reinforcement Metabolic Syndrome Recommendations Include:: Patient is diabetic Metabolic Syndrome Response Code:: Not instructed Sedentary Patient Sedentary Risk Factors Are:: Lack of regular exercise Recommendations Include:: Aerobic exercise 5-7 times/week for 20-30 minutes continuously, Benefits of regular exercise, Discussed home walking program, Mon itored Outpatient Cardiac Rehab Sedentary Response Code:: Patient communicates acknowledgment, Family communicates acknowledgment, Needs reinforcement Stress Recommendations Include:: Identification of stressors, and assessment of coping skills, Stress management techniques Stress Response Code:: Patient communicates acknowledgment, Needs reinforcement
--- NOTE | 2018-03-15 13:57 | CHAPLAIN ---
Type of Pastoral Visit ___ Initial Visit _x__ Follow-up Visit ___ On-call Visit ___ General Patient Visit ___ Spiritual Assessment ___ Family Conference ___ Bereavement ___ Rapid Response ___ Code Blue ___ Other (describe below) Pastoral Care Referral From _x__ Patient ___ Family ___ Nurse ___ Physician ___ Review Trainer ___ Electromechanical Equipment Tester ___ Other (describe below) Sacrament/Intervention _x__ Active listening ___ Anointing ___ Mormon ___ Bereavement ___ Communion ___ Jada exploration ___ ___ Life review _x__ Prayer ___ Reconciliation ___ Sacrament of Sick ___ Supportive presence ___ Wedding ___ Other (describe below) Pastoral Comments
--- NOTE | 2018-03-15 14:35 | CASEMGMT ---
JULIO APONTE NOTE: To room to talk with pt. Pt sitting up in recliner chair. Pt states he did move onto his dtr and SHELLEY's property about 5-6 weeks ago and that this arrangement has been working very well and he is glad they made this move. Pt states they have their own living quarters but are very close to family and help if needed. Pt reports he has been receiving [facility]. Call placed to [facility] and confirmed he is current with them and is receiving SN and PT. Resumption order placed for [facility]. Pt states he has a walker and 2 canes and a built-in shower stool. Pt denies having any DME needs at this time. Pt did say he may need some items down the road. Informed pt about [facility] DME warehouse in [place] and provided pt with contact information. Discussed AD with pt. He and his stated they have looked over the AD information given to them last admission and are interested in completing this paperwork this admission. Daniela MAZARIEGOS, notified. Pt and state they have no further questions and voiced appreciation of JULIO APONTE assistance. *Plans are for pt to be discharged home on Plavix and ASA post PCI. Jamar LEVIN RN, CM
--- NOTE | 2018-03-15 15:00 | CASEMGMT ---
Social Work Note SW received referral for Advanced Directives. SW in to meet with pt to complete advanced directives. SW introduced self and role at [facility]. Pt's and daughter present in room. Pt gave this worker permission to speak to him in front of his guest. Pt confirms that he would like to complete HCPOA but not living will at this time. Pt completed HCPOA. SW made copy of HCPOA and placed on pt's chart. SW provided pt with original copy of HCPOA and provided pt with Living Will document if they wish to complete the document at a later time. Pt and pt's family state understanding. Vilma Lanza PAPER GUILLOTINE OPERATOR, MANAGER [employer]
[2018-03-15 17:06] LABS: Bedside Glucose 128 mg/dL (70-110)
[2018-03-15] MEDS: Isosorbide Mononitrate 60 MG Tablet PO (21:49)
[2018-03-15] MEDS: Donepezil HCl 10 MG Tablet PO (21:49)
[2018-03-15 22:00] LABS: Bedside Glucose 138 mg/dL (70-110)
[2018-03-15 23:21] LABS: Bedside Glucose 83 mg/dL (70-110)
[2018-03-16] VITALS (16 sets, daily range): BP systolic 85–171; BP diastolic 38–77; PULSE 49–56; RESP 12–19; TEMP 36.6; O2SAT 94–100
[2018-03-16] MEDS: FLUoxetine 20 MG Capsule PO (05:31)
[2018-03-16] MEDS: Acetaminophen 325 MG Tablet 650 MG PO (05:31)
[2018-03-16] MEDS: 0.9% NaCl Peripheral Flush Adult/Peds IV (05:42)
[2018-03-16 05:51] LABS: Bedside Glucose 175 mg/dL (70-110)
[2018-03-16 06:05] LABS: Anion Gap 9 (5-15); BUN 26 mg/dL (7-18); BUN/Creat Ratio 24.1 RATIO (10-20); Calcium,Total 8.9 mg/dL (8.5-10.1); Chloride 105 mmol/L (98-107); Creatinine, Serum 1.08 mg/dL (0.70-1.30); EST Glomerular Filtration Rate 72 mL/min (>60); Est Glom Filt Rate - Afr Amer 88 mL/min (>60); Estimated Creatinine Clearance 62.05 ml/min; Glucose 181 mg/dL (74-106); Potassium 4.4 mmol/L (3.5-5.1); Sodium Level 141 mmol/L (136-145)
[2018-03-16 06:13] LABS: Hematocrit 33.9 % (40-54); Hemoglobin 10.9 g/dl (13.0-16.5); Mean Corp Hgb Conc 32.2 g/gl (32-36); Mean Corpuscular Hgb 29.6 pg (27.0-32.0); Mean Corpuscular Volume 92.1 fL (80-94); Mean Platelet Vol. 11.8 fl (6.2-12.0); Platelet Count 231 K/mm3 (150-450); RBC Distribution Width CV 13.3 % (11.6-14.6); RBC Distribution Width SD 43.3 fl (35.1-43.9); Red Blood Count 3.68 M/mm3 (4.6-6.2); White Blood Count 6.2 K/mm3 (4.4-11.0)
[2018-03-16 06:23] LABS: Scan Indicated on CBC? Y/N NO
[2018-03-16] MEDS: Aspirin E.C. 81 MG Tablet PO (07:23)
[2018-03-16] MEDS: Gabapentin 300 MG Capsule PO (07:24)
[2018-03-16] MEDS: Insulin Lispro 100 UNIT/ML INSULN.PEN SQ (07:33)
[2018-03-16] MEDS: Insulin Human 75/25 Kwickpen 30 UNIT SC (07:34)
--- NOTE | 2018-03-16 08:12 | DCINST_ITS ---
- Discharge Diagnoses Current Active Problems: Current Active and Chronic Problems HCAP (healthcare-associated pneumonia) (Acute) Abnormal cardiac enzyme level (Acute) S/P CABG (coronary artery bypass graft) (Chronic) HLD (hyperlipidemia) (Chronic) HTN (hypertension) (Chronic) Abdominal discomfort (Acute) You will use the following diet at home:: Calorie/Carbohydrate Controlled (specify 1200, 1400, etc) - 1800 ADA diet, Cardiac Discharge Activity: May Not Drive - at least for 2 weeks and then follow with PCP. Call your doctor if you observe: Fever of 101 or Higher, Numbness or Tingling, Inability to urinate, Shortness of breath, Fainting spells, Swelling in the ankles, Chest pain Allergies/Adverse Reactions: Allergies hydrochlorothiazide Allergy (Verified 02/13/18 10:13) Unknown Penicillins [PCN] Allergy (Verified 02/13/18 10:13) Swelling pioglitazone [From Actos] Allergy (Verified 02/13/18 10:13) Unknown oxycodone [From OxyIR] Adverse Reaction (Verified 02/15/18 23:25) Other pravastatin Adverse Reaction (Verified 02/13/18 10:13) Pain in joints Medications to take at Discharge Aspirin [Aspirin EC] 81 mg PO DAILY 03/15/17 Bupropion HCl [Bupropion HCl ER] 100 mg PO LUNCH 03/15/17 Fluoxetine HCl [Prozac] 20 mg PO TID 03/15/17 Gabapentin [Neurontin] 300 mg PO TID 03/15/17 Insulin Human 70/30 [Novolog Mix 70-30 Flexpen Syrn] 30 units SC BIDCM 03/15/17 Multivitamin [Multiple Vitamins] 1 each PO DAILY 03/15/17 buPROPion XL [Wellbutrin Xl] 300 mg PO DAILY 03/15/17 Isosorbide Mononitrate [Imdur] 120 mg PO DAILY 01/24/18 Quetiapine Fumarate [Seroquel] 25 mg PO BID 01/24/18 Clopidogrel Bisulfate [Plavix] 75 mg PO DAILY #30 tablet 02/20/18 Donepezil HCl [Aricept] 10 mg PO QHS #30 tablet 02/20/18 Metformin HCl [Glucophage] 1,500 mg PO DAILY 03/13/18 Amlodipine [Norvasc] 10 mg PO DAILY #30 tablet 03/16/18 Isosorbide Mononitrate [Imdur] 60 mg PO QHS tablet 03/16/18 Lisinopril [Zestril] 20 mg PO BID #60 tablet 03/16/18 Metoprolol Tartrate [Lopressor (beta poonam)] 50 mg PO BID #60 tablet 03/16/18 Nitroglycerin [Nitrostat] 0.4 mg SUBLINGUAL Q5M PRN #30 tablet 03/16/18 Pantoprazole Sodium [Protonix] 40 mg PO DAILY #30 tablet 03/16/18 Ranolazine [Ranexa] 500 mg PO BID #60 tablet 03/16/18 The following prescriptions were given: Amlodipine [Norvasc] 10 mg PO DAILY #30 tablet Nitroglycerin [Nitrostat] 0.4 mg SUBLINGUAL Q5M PRN #30 tablet PRN Reason: Chest Pain Pantoprazole Sodium [Protonix] 40 mg PO DAILY #30 tablet Lisinopril [Zestril] 20 mg PO BID #60 tablet Metoprolol Tartrate [Lopressor (beta poonam)] 50 mg PO BID #60 tablet Ranolazine [Ranexa] 500 mg PO BID #60 tablet Primary Care Physician: Juve Reed MD [Primary Care Provider] - Please follow up with your Primary Care Physician in: IN 1-2 Weeks Test Results: Test results from this visit will be discussed in further detail at your follow- up appointment, if applicable. Please Follow Up With: Willis Frey MD When: in 2 weeks
--- NOTE | 2018-03-16 08:43 | PN.CARD_ITS ---
Subjectve: Patient doing well this morning, had another episode of atypical nonexertional chest pain last evening apparently relieved with sublingual nitroglycerin. It is unknown what his blood pressure was at that time, but there was a blood pressure recorded at 153 /60. Since then he has been doing well. Right groin is clean/dry/intact. EKG shows normal sinus rhythm, no acute changes. Hemoglobin and creatinine are within nominal limits. Objective: Vital Signs Temp Pulse Resp BP Pulse Ox 97.9 F 54 L 19 H 148/68 H 100 03/16/18 07:00 03/16/18 07:00 03/16/18 07:00 03/16/18 07:00 03/16/18 07:00 Oxygen Flow Rate (L/min) 2 Oxygen Delivery Method Room Air Weight: 240 lb 4.862 oz Body Mass Index (BMI) 37.8 Finger Stick Blood Glucose 272 Intake and Output for Last 24 Hours 03/14/18 03/15/18 03/16/18 23:59 23:59 23:59 Intake Total 720 / 720 2580 / 2580 360 / 360 Output Total 600 / 600 1200 / 1200 Balance 120 / 120 1380 / 1380 360 / 360 General: Awake, Alert, Oriented x 3 HEENT: PERRL, EOMI, Sclera Non Icteric Neck: Supple, Good ROM, No Lymph Node Enlargement Lungs: Clear to auscultation Cardiovascular: Regular Rhythm, Normal S1, Normal S2, No Murmurs, No Rubs, No Gallops Vascular: No Carotid Bruits, Normal Femoral Pulses, Normal Radial Pulses, Normal Dorsalis Pedal Pulse, Normal Posterior Tibial Pulses Abdomen: Bowel Sounds Present, Soft, Non Tender, No HSM, No Organomegaly Extremities: No Cyanosis, No Clubbing, No edema Neurological: No Focal Motor or Sensory Deficit 03/16/18 05:40: Sodium 141, Potassium 4.4, Chloride 105, Carbon Dioxide 27.0, Anion Gap 9, BUN 26 H, Creatinine 1.08, Est GFR (MDRD) Af Amer 88, Est GFR (MDRD) Non-Af 72, BUN/Creatinine Ratio 24.1 H, Glucose 181 H, Calcium 8.9 03/16/18 05:40: WBC 6.2, RBC 3.68 L, Hgb 10.9 L, Hct 33.9 L, MCV 92.1, MCH 29.6, MCHC 32.2, RDW 13.3, RDW Differential 43.3, Plt Count 231, MPV 11.8 Rhythm: EKG: ECHO: Stress Test: Cardiac Cath: PCI: CT Surgery: Holter monitor: EPS: PPM: CXR: Chest CT Scan: Medical Necessity - Tobacco Use Smoking Status: Never smoker Assessment/Plan 1. Unstable angina: The patient underwent a repeat catheterization recently which demonstrated widely patent grafts, possibly significant coronary disease in his main left circumflex which gives way to very small distal vessels. This may be superimposed upon significant fluctuations in his blood pressure causing hypertension induced angina. I reviewed the patient's catheterization films and feel that the patient may benefit from intervention of his left circumflex system. No other vessels require intervention at this time. After much discussion with the patient and his family, we have agreed to proceed with intervention of his left circumflex which took place on 03/15/18 receiving a 3.0X 38 Promus stent to the circumflex, postdilated to 3.5 mm.The patient's symptoms may be related to fluctuations in his blood pressure, and to that end I agree with Imdur 120 mg in the morning, and I have added 30 mg in the evening to provide better coverage throughout the night. We will discontinue his Pletal to avoid excessive bleeding risk. The patient's symptoms did return last evening while he was sitting in bed and apparently relieved with sublingual nitroglycerin. Patient has many reasons for chest pain including hypertension, possible pneumonia with pleuritic involvement, and possible GERD. Patient is been treated with antibiotics and will start a PPI therapy just in case he has reflux disease as a cause of his c hest pain. I do not believe the patient would benefit from any additional interventional therapy at this time. Patient may have small vessel disease that is not amenable to corrective measures either percutaneously or despite maximal medical therapy. He will be discharged on high-dose long-acting nitroglycerin, ranolazine, beta-blockers, BLANCA inhibitors. In addition we will start him on Protonix 20 mg p.o. daily. In addition I reviewed his chest x-ray which demonstrates a possible right lower lobe infiltrate and the patient did coy some benefit from antibiotic therapy although his chest pain had returned while he was laying in bed. His symptoms do not appear to be pleuritic in nature however. Would recommend continuing antibiotic therapy for possible pneumonia. He will continue baby aspirin and Plavix as well as his other antihypertensive medications. Discussed with Dr. Hartman and the patient and his family. All questions answered. Patient may be discharged home today. The patient wishes to pursue following up with Dr. Frey going forward due to logistical issues. Code Visit Inpatient E&M: 46857 Subs Hosp L2
--- NOTE | 2018-03-16 08:47 | DS.PCM_ITS ---
Discharge Date and Diagnosis - Problem List Patient Problems: Active and Suspected Problems HCAP (healthcare-associated pneumonia) (Acute) Abnormal cardiac enzyme level (Acute) Abdominal discomfort (Acute) Date of Admission: 03/13/18 Date of Discharge: 03/16/18 - Primary Discharge Diagnosis Active and Suspected Problems Abnormal cardiac enzyme level (Acute) Abdominal discomfort (Acute) Non-STEMI secondary to single vessel disease. 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 Seaman, postoperative period was complicated by development of acute non-STEMI. Patient underwent left heart catheterization on 02/20/2018 which demonstrated triple-vessel disease involving an occluded RCA, and occluded LAD 50% circumflex stenosis. Medical management was recommended by Dr. Frey with cardiology unless consideration for PCI if patient became symptomatic. Patient presented to the emergency department with exertional dyspnea and some shortness of breath and markedly elevated systolic blood pressure. 1. Non-STEMI with known CAD secondary to single-vessel disease, mid left circumflex 75% stenosis. Patient has been admitted to a monitored bed treatment initiated per protocol with continuation of his dual antiplatelet therapy, beta blockers, therapeutic Lovenox as well as nitrates. The patient was seen by fruit or nut farmworker Dr. Villegas and then Dr. Frey. Patient underwent successful PTCA/JACI to approximately mid circumflex lesion by Dr. Frey on 03/15/18. Subsequently transferred to the intensive care unit following the procedure. 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 Acute hypertensive crisis patient systolic blood pressure upon admission was greater than 200 millimeters Hg home medications continued with dose adjustment in addition to hydralazine as needed. Blood pressure was controlled. Lisinopril 40 mg daily was changed to 20 mg twice daily. Amlodipine 10 mg was added. Prescription sent to the pharmacy. 3. Pneumonia ruled out there was a questionable infiltrate on chest x-ray however patient was afebrile without leukocytosis saturating percent on room air. Antibiotics initiated on admission subsequently discontinued findings on c hest x-ray attributed to atelectasis. On incentive spirometry 4. Recent revision of left total knee arthroplasty by Dr. Seaman on 02/15/2018 5. Coronary artery disease with 2 previous CABG and a recent left heart catheterization results as stated above 6. Diabetes mellitus type II: Controlled was held patient's oral hypoglycemics held. Placed on long acting insulin, Accu-Cheks a.c. and at bedtime and covered with sliding scale insulin. Blood sugar was controlled. 7. Previous history of DVT treated with Xarelto 8. Morbid obesity BMI of 30 seven-point 9. DVT prophylaxis: Lovenox Medication reconciliation was done. Discharge medications discussed with Dr. Frey, patient, patient's and his daughter near the bedside. Patient was on Pletal before for reason unclear but possible peripheral arterial disease. Patient and family agreed for discontinuation of Pletal as 3 antiplatelet agent will increase the risk of bleeding. Patient is on aspirin, Plavix, metoprolol, lisinopril, high-dose of isosorbide mononitrate and Ranexa 500 mg twice daily, sublingual nitro. Necessary scripts sent to pharmacy. Patient also has possible GERD symptoms with acid reflux. Prescription for Protonix sent to pharmacy. Discharge follow-up instructions discussed with the patient and his family present in the room. Total time spent, exact 35 minutes on discharge meds reconciliation, examination, review of imaging and blood test and discussion with the patient on follow-up instructions. Patient Problems: Active and Suspected Problems HCAP (healthcare-associated pneumonia) (Acute) Abnormal cardiac enzyme level (Acute) Abdominal discomfort (Acute) Subjective: Patient was seen and examined. Heart rate and 50s. Sinus rhythm. Patient had PCI/JACI of mid circumflex lesion by Dr. Frey yesterday. Patient had an episode of nonexertional atypical chest pain yesterday evening that led with sublingual nitro. Denies any chest pain afterwards. Blood pressure has been better controlled in the 140s. Right groin dressing is dry. - Physical Exam General: Alert, Oriented x3, Cooperative HEENT: Atraumatic, PERRLA, EOMI, Normocephalic Neck: Supple, No JVD, Negative Carotid Bruits Lungs: Clear to auscultation, No rhonchi, No wheeze, No rales, Diminished Cardiovascular: Regular Rhythm, Normal S1, Normal S2, No murmurs, Bradycardic, - - Heart rate in 50s Abdomen: Bowel Sounds Present, Soft, Non Tender, Non-Distended, - - diminished peripheral pulses in popliteal and VEGETABLE SPECKER and DPA Extremities: Capillary Refill Less than 3 Seconds, Edema Skin: No rashes, No breakdown Musculoskeletal: No Tenderness to Palpation of Joints or Extremities, Arthritic Changes Lymphatic: No Cervical, Supraclavicular, or Inguinal Adenopathy Neurological: Cranial nerves II-XII grossly intact, Deep Tendon Reflexes 2+/4 and Symmetrical, Neuro grossly intact, Motor Exam 5/5 strength throughout Psych/Mental Status: Normal Affect, Appropriate Vital Signs Temp Pulse Resp BP Pulse Ox 97.9 F 54 L 19 H 148/68 H 100 03/16/18 07:00 03/16/18 07:00 03/16/18 07:00 03/16/18 07:00 03/16/18 07:00 Oxygen Flow Rate (L/min) 2 Oxygen Delivery Method Room Air Weight: 240 lb 4.862 oz Body Mass Index (BMI) 37.8 Finger Stick Blood Glucose 272 Intake and Output for Last 24 Hours 03/14/18 03/15/18 03/16/18 23:59 23:59 23:59 Intake Total 720 / 720 2580 / 2580 360 / 360 Output Total 600 / 600 1200 / 1200 Balance 120 / 120 1380 / 1380 360 / 360 Laboratory Tests Past 24 Hrs 03/15/18 03/16/18 03/16/18 08:40 05:40 05:40 WBC 6.2 RBC 3.68 L Hgb 10.9 L Hct 33.9 L MCV 92.1 MCH 29.6 MCHC 32.2 RDW 13.3 RDW Differential 43.3 Plt Count 231 MPV 11.8 Activated Clotting Time 175 H Sodium 141 Potassium 4.4 Chloride 105 Carbon Dioxide 27.0 Anion Gap 9 BUN 26 H Creatinine 1.08 Estim Creat Clear Calc 62.05 Est GFR (MDRD) Af Amer 88 Est GFR (MDRD) Non-Af 72 BUN/Creatinine Ratio 24.1 H Glucose 181 H Calcium 8.9 POC Glucose 03/16/18 03/15/18 03/15/18 05:34 23:15 21:47 POC Glucose 175 H 83 138 H 03/15/18 03/15/18 16:58 10:21 POC Glucose 128 H 146 H Discharge Activity: May Not Drive - at least for 2 weeks and then follow with PCP. Call your doctor if you observe: Fever of 101 or Higher, Numbness or Tingling, Inability to urinate, Shortness of breath, Fainting spells, Swelling in the ankles, Chest pain Home Medications: Medications to take at Discharge Aspirin [Aspirin EC] 81 mg PO DAILY 03/15/17 Bupropion HCl [Bupropion HCl ER] 100 mg PO LUNCH 03/15/17 Fluoxetine HCl [Prozac] 20 mg PO TID 03/15/17 Gabapentin [Neurontin] 300 mg PO TID 03/15/17 Insulin Human 70/30 [Novolog Mix 70-30 Flexpen Syrn] 30 units SC BIDCM 03/15/17 Multivitamin [Multiple Vitamins] 1 each PO DAILY 03/15/17 buPROPion XL [Wellbutrin Xl] 300 mg PO DAILY 03/15/17 Isosorbide Mononitrate [Imdur] 120 mg PO DAILY 01/24/18 Quetiapine Fumarate [Seroquel] 25 mg PO BID 01/24/18 Clopidogrel Bisulfate [Plavix] 75 mg PO DAILY #30 tablet 02/20/18 Donepezil HCl [Aricept] 10 mg PO QHS #30 tablet 02/20/18 Metformin HCl [Glucophage] 1,500 mg PO DAILY 03/13/18 Amlodipine [Norvasc] 10 mg PO DAILY #30 tablet 03/16/18 Isosorbide Mononitrate [Imdur] 60 mg PO QHS tablet 03/16/18 Lisinopril [Zestril] 20 mg PO BID #60 tablet 03/16/18 Metoprolol Tartrate [Lopressor (beta lobo)] 50 mg PO BID #60 tablet 03/16/18 Nitroglycerin [Nitrostat] 0.4 mg SUBLINGUAL Q5M PRN #30 tablet 03/16/18 Pantoprazole Sodium [Protonix] 40 mg PO DAILY #30 tablet 03/16/18 Ranolazine [Ranexa] 500 mg PO BID #60 tablet 03/16/18 Following Prescrptions Were Given to Patient: Amlodipine [Norvasc] 10 mg PO DAILY #30 tablet Nitroglycerin [Nitrostat] 0.4 mg SUBLINGUAL Q5M PRN #30 tablet PRN Reason: Chest Pain Pantoprazole Sodium [Protonix] 40 mg PO DAILY #30 tablet Lisinopril [Zestril] 20 mg PO BID #60 tablet Metoprolol Tartrate [Lopressor (beta lobo)] 50 mg PO BID #60 tablet Ranolazine [Ranexa] 500 mg PO BID #60 tablet Primary Care Physician: Juve Reed MD [Primary Care Provider] - Please follow up with your Primary Care Physician in: IN 1-2 Weeks Please Follow Up With: Willis Frey MD When: in 2 weeks Medical Necessity - Tobacco Use Smoking Status: Never smoker Meaningful Use Info Meaningful Use Diagnoses (Choose all that apply): AMI - AMI Aspirin given w/in 24hrs of arrival?: Yes ASA at discharge?: Yes Statins at discharge?: No Reason statins not ordered:: Allergy Emeka/ARB at discharge?: Yes Beta Lobo at discharge?: Yes Done w/ Acute OK measure.: Yes Code Visit Inpatient E&M: 21757 Disch Hosp
--- NOTE | 2018-03-16 09:15 | CASEMGMT ---
JULIO APONTE NOTE: Call placed to ROSCOE Reyez, @ [facility]. Made aware pt discharging today. Resumption order for [facility] already in. Jamar LEVIN RN CM
[2018-03-16] MEDS: Clopidogrel Bisulfate 75 MG Tablet PO (09:16)
[2018-03-16] MEDS: Metoprolol Tartrate 50 MG Tablet PO (09:16)
[2018-03-16] MEDS: amLODIPine 10 MG Tablet PO (09:16)
[2018-03-16] MEDS: Lisinopril 20 MG Tablet PO (09:17)
[2018-03-16] MEDS: Ranolazine 500 MG Tablet PO (09:17)
[2018-03-16] MEDS: QUEtiapine 25 MG Tablet PO (09:17)
[2018-03-16] MEDS: buPROPion (XL) 300 MG TABLET.XL PO (09:17)
[2018-03-16 09:30] LABS: Bedside Glucose 165 mg/dL (70-110)
--- NOTE | 2018-03-16 10:00 | EKG12_ITS ---
Test Reason : AM Blood Pressure : / mmHG Vent. Rate : 052 BPM Atrial Rate : 052 BPM P-R Int : 154 ms QRS Dur : 106 ms QT Int : 472 ms P-R-T Axes : 080 019 059 degrees QTc Int : 438 ms Sinus bradycardia Otherwise normal ECG When compared with ECG of 15-MAR-2018 09:15, MANUAL COMPARISON REQUIRED, DATA IS UNCONFIRMED Confirmed by JAYDA STODDARD, MARIANNA ([id number]), industrial editor ANNA GLASGOW ([id number]) on 03/19/2018 2:55:54 PM Referred By: MAURICIO Confirmed By:MARIANNA MONTELONGO MD
--- NOTE | 2018-03-19 12:53 | CASEMGMT ---
JULIO CM Discharge Follow-Up Phone Call. LACE: 10 Strata: 3 Discharge Date: 03/16/18 Adm Dx: Hypertensive Urgency Attempted discharge follow-up phone call. No answer. Left message for pt to return call if he has any questions or concerns re: discharge instructions, or any other needs. Provided CM phone number. Jamar LEVIN RN CM
== END 2018-03-16 11:25 | disposition home health service (06) | DRG 247 ==
LOC: ED 06:05 → PCU 06:08 → ICU 03-15 08:07
PROVIDERS: Internal Medicine; Internal Medicine Cardiovascular Disease; Admitting Provider Family Medicine; Emergency Provider Emergency Medicine; Family Provider Family Medicine; PCP Family Medicine; Visit Provider Internal Medicine
DX: I21.4 Non-ST elevation (NSTEMI) myocardial infarction (principal); I16.0 Hypertensive urgency; E66.01 Morbid (severe) obesity due to excess calories; E78.5 Hyperlipidemia, unspecified; E11.9 Type 2 diabetes mellitus without complications; I25.110 Atherosclerotic heart disease of native coronary artery with unstable angina pectoris; Z96.652 Presence of left artificial knee joint; Z68.38 Body mass index [BMI] 38.0-38.9, adult; Z79.84 Long term (current) use of oral hypoglycemic drugs; Z79.02 Long term (current) use of antithrombotics/antiplatelets; Z95.1 Presence of aortocoronary bypass graft; Z79.899 Other long term (current) drug therapy; Z86.718 Personal history of other venous thrombosis and embolism
CPT/HCPCS: 36415; 71045; 80048; 80053; 80061; 81001; 82962; 84443; 84484; 85025; 85027; 85347; 85610; 85730; 92928; 93005; 93978; 97116; 97162; 97165; 97530; 97802; 99285; C1760; J7030; A4216; C1725; C1769; C1874; C1887; C9600; J1940; Q9967

== ENCOUNTER → 2018-04-25 08:24 | Outpatient (CLI) | payer MEDICARE, MEDICAID, SELFPAY ==
[2018-03-15 12:56] VITALS: BMI 37.7
[2018-04-25 10:24] LABS: ALB/GLOB Ratio 0.9 RATIO (0.9-2.4); AST(SGOT) 17 U/L (15-37); Alanine Aminotransfer ALT/SGPT 25 U/L (16-61); Albumin, Serum 3.5 g/dL (3.2-5.0); Alkaline Phosphatase 62 U/L (45-117); Anion Gap 9 (5-15); BUN 14 mg/dL (7-18); BUN/Creat Ratio 13.9 RATIO (10-20); Calcium,Total 8.8 mg/dL (8.5-10.1); Chloride 106 mmol/L (98-107); Creatinine, Serum 1.01 mg/dL (0.70-1.30); EST Glomerular Filtration Rate 78 mL/min (>60); Est Glom Filt Rate - Afr Amer 95 mL/min (>60); Globulin 3.8 g/dL (2.2-4.2); Glucose 171 mg/dL (74-106); Potassium 4.4 mmol/L (3.5-5.1); Protein, Total 7.3 g/dL (6.4-8.2); Sodium Level 141 mmol/L (136-145)
[2018-04-25 10:25] LABS: Hemoglobin A1c 7.6 % (4.2-6.3)
[2018-04-25 10:37] LABS: Microalbumin:Creatinine Ratio 13.2 mg/g CRE (<30 mg/g CRE)
--- OUTSIDE RECORDS SUMMARY | 2018-06-29 23:21 | XMS RPT_ITS ---
:1950 Author Organization OHIP Support Name Relationship Address Phone WILBER GLASGOW Unavailable [address] + [place] [address] R Unavailable Unavailable Unavailable WILBER GLASGOW Unavailable [address] + [place] [address] R Unavailable Unavailable Unavailable WILBER GLASGOW Unavailable [address] + [place] [address] R Unavailable Unavailable Unavailable WILBER GLASGOW Unavailable [address] + [place] [address] R Unavailable Unavailable Unavailable WILBER GLASGOW Unavailable [address] + [place] [address] R Unavailable Unavailable Unavailable WILBER GLASGOW Unavailable [address] + [place] [address] R Unavailable Unavailable Unavailable WILBER GLASGOW Unavailable [address] + [place] [address] R Unavailable Unavailable Unavailable WILBER GLASGOW Unavailable [address] + [place] [address] R Unavailable Unavailable Unavailable WILBER GLASGOW Unavailable [address] + [place] [address] R Unavailable Unavailable Unavailable WILBER GLASGOW Unavailable [address] + [place] [address] R Unavailable Unavailable Unavailable WILBER GLASGOW Unavailable [address] + [place] [address] R Unavailable Unavailable Unavailable WILBER GLASGOW Unavailable [address] + [place] [address] R Unavailable Unavailable Unavailable WILBER GLASGOW Unavailable [address] + [place] [address] R Unavailable Unavailable Unavailable WILBER GLASGOW Unavailable [address] + [place] [address] R Unavailable Unavailable WILBER Ortiz Unavailable [address] + [place] [address] R Unavailable Unavailable Unavailable WILBER GLASGOW Unavailable [address] + [place] [address] R Unavailable Unavailable Unavailable WILBER GLASGOW Unavailable [address] + [place] [address] R Unavailable Unavailable Unavailable WILBER GLASGOW Unavailable [address] + [place] [address] R Unavailable Unavailable Unavailable WILBER GLASGOW Unavailable [address] + [place] [address] R Unavailable Unavailable Unavailable WILBER GLASGOW Unavailable [address] + [place] [address] R Unavailable Unavailable WILBER Ortiz Unavailable [address] + [place] [address] R Unavailable Unavailable Unavailable WILBER GLASGOW Unavailable [address] + [place] [address] R Unavailable Unavailable WILBER Ortiz Unavailable [address] + [place] [address] R Unavailable Unavailable Unavailable WILBER GLASGOW Unavailable [address] + [place] [address] R Unavailable Unavailable Unavailable WILBER GLASGOW Unavailable [address] + [place] [address] R Unavailable Unavailable Unavailable HOME GRIJALVA Unavailable Unavailable + [place] [address] R Unavailable Unavailable Unavailable MERLY GRIJALVA Unavailable [address] + [place] [address] MERLY GRIJALVA Unavailable [address] + [place] [address] ERBROXIHOME Unavailable Unavailable + [place] [address] R Unavailable Unavailable Unavailable MERLY GRIJALVA Unavailable [address] + [place] [address] ERBMERLY Unavailable [address] + [place] [address] ERBMIRIAME Unavailable [address] + [place], [place] [id number] MERLY GRIJALVA Unavailable [address] Unavailable [place], [place] [id number] NOT GIVEN Unavailable Unavailable Unavailable VALENTINE, MERLY Unavailable [address] + [place] [address] ERBMERLY Unavailable [address] + [place] [address] ERBMERLY Unavailable [address] + [place] [address] ERBMERLY Unavailable [address] + [place] [address] ERBMERLY Unavailable [address] + [place] [address] ERBMERLY Unavailable [address] + [place] [address] ERBMERLY Unavailable [address] + [place] [address] ERBMERLY Unavailable [address] + [place] [address] ERBROXIHOME Unavailable Unavailable + R Unavailable Unavailable Unavailable ERB, HOME Unavailable Unavailable + R Unavailable Unavailable Unavailable MERLY GRIJALVA Unavailable [address] + [place] [address] VALENTINEMERLY Unavailable [address] + [place] [address] Care Team Providers Name Role Phone MD KELSEA SINGH Attending Unavailable BLANCA ROBIN, DR. TANISHA Diggs Primary Care Unavailable ELISABETH STODDARD, LISSA Head Attending Unavailable BLANCA ROBIN, DR. TANISHA Diggs Primary Care Unavailable LISSA BARBER MD Consulting Unavailable JHONNY CAMPUZANO MD Consulting Unavailable JHONNY CAMPUZANO MD Attending Unavailable BLANCA ROBIN, DR. TANISHA Diggs Primary Care Unavailable STEPH BORREGO MD Attending Unavailable BLANCA ROBIN, DR. TANISHA Diggs Primary Care Unavailable STEPH BORREGO MD Attending Unavailable BLANCA ROBIN, DR. TANISHA Diggs Primary Care Unavailable FRANK PRASAD MD Attending Unavailable BLANCA ROBIN, DR. TANISHA Diggs Primary Care Unavailable FRANK PRASAD MD Admitting Unavailable BLANCA ROBIN, DR. TANISHA Diggs Consulting Unavailable JHONNY CAMPUZANO MD Consulting Unavailable CHERY STODDARD., DR. CHEUNG Consulting Unavailable BLANCA ROBIN, DR. TANISHA Diggs Attending Unavailable BLANCA ROBIN, DR. TANISHA Diggs Primary Care Unavailable JHONNY CAMPUZANO Attending Unavailable NERI LARKIN DO Admitting Unavailable NERI LARKIN DO Attending Unavailable LEILA RIOS MD Referring Unavailable NERI LARKIN DO Primary Care Unavailable LEILA RIOS MD Consulting Unavailable PROVIDER, UNKNOWN Consulting Unavailable PROVIDER, UNKNOWN Consulting Unavailable PROVIDER, UNKNOWN Consulting Unavailable Andrew Borregoen Attending Unavailable Rios, Tanisha Primary Care Unavailable Urszula, Steph Attending Unavailable Urszula, Steph Referring Unavailable Rios, Tanisha Primary Care Unavailable Urszula, Steph Admitting Unavailable Urszula, Steph Attending Unavailable Urszula, Steph Referring Unavailable Rios, Tanisha Primary Care Unavailable Urszula, Steph Attending Unavailable Urszula, Steph Referring Unavailable Rios, Tanisha Primary Care Unavailable Urszula, Steph Admitting Unavailable Rios, Tanisha Primary Care Unavailable Urszula, Steph Referring Unavailable Scarlett Quezada Consulting Unavailable Frederick Maldonado Attending Unavailable Willis Frey Consulting Unavailable Urszula, Steph Admitting Unavailable Urszula, Steph Referring Unavailable Rios, Tanisha Primary Care Unavailable White, Scarlett Consulting Unavailable White Scarlett Attending Unavailable Urszula, Steph Consulting Unavailable Urszula, Steph Admitting Unavailable Frederick Maldonado Attending Unavailable Urszula, Steph Referring Unavailable Rios, Tanisha Primary Care Unavailable White, Scarlett Consulting Unavailable Joel Frederick Consulting Unavailable Urszula, Steph Admitting Unavailable Jopperi, Clarence Attending Unavailable Urszula, Steph Referring Unavailable [facility] Unavailable White, Scarlett Consulting Unavailable Jopperi, Clarence Consulting Unavailable Urszula, Steph Admitting Unavailable Jopperi, Clarence Attending Unavailable Urszula, Steph Referring Unavailable [facility] Unavailable White, Scarlett Consulting Unavailable Jopperi, Clarence Consulting Unavailable Urszula, Steph Admitting Unavailable Jopperi, Clarence Attending Unavailable Urszula, Steph Referring Unavailable [facility] Unavailable White, Scarlett Consulting Unavailable Jopperi, Clarence Consulting Unavailable Urszula, Steph Admitting Unavailable Willis Frey Attending Unavailable Urszula, Steph Referring [facility] White, Scarlett Consulting Unavailable Willis Frey Consulting Unavailable Jopperi, Clarence Consulting Unavailable Urszula, Steph Admitting Unavailable Willis Frey Attending Unavailable Urszula, Steph Referring [facility]available [facility] Unavailable White, Scarlett Consulting Unavailable Willis Frey Consulting Unavailable Koram, Courtney Nicolette Consulting Unavailable Urszula, Steph Admitting Unavailable Koram, Courtney Nicolette Attending Unavailable Urszula, Steph Referring Unavailable [facility] Unavailable White, Scarlett Consulting Unavailable Willis Frey Consulting Unavailable Koram, Courtney Nicolette Consulting Unavailable Urszula, Steph Admitting Unavailable Willis Frey Attending Unavailable Urszula, Steph Referring Unavailable [facility] Unavailable White, Scarlett Consulting Unavailable Willis Frey Consulting Unavailable Koram, Courtney Nicolette Consulting Unavailable Urszula, Steph Admitting Unavailable Koram, Courtney Nicolette Attending Unavailable Urszula, Steph Referring Unavailable [facility] Unavailable White, Scarlett Consulting Unavailable Willis Frey Consulting Unavailable Koram, Courtney Nicolette Consulting Unavailable Urszula, Steph Admitting Unavailable Frederick Maldonado Attending Unavailable Urszula, Steph Referring Unavailable [facility] Unavailable White, Scarlett Consulting Unavailable Willis Frey Consulting Unavailable Terxavier, Frederick Consulting Unavailable [facility] Unavailable Bandar Farah Admitting Unavailable Bandar Villegas Consulting Unavailable Ean Mayfield Attending Unavailable Sofi, Bandar Admitting Unavailable Bandar Farah Attending Unavailable [facility] Unavailable Bandar aFrah Consulting Unavailable Bandar Farah Admitting Unavailable Moodispaw, Bandar Attending Unavailable Rios, Tanisha Primary Care Unavailable [place], Bandar Consulting Unavailable Kittoe, Yunior Consulting Unavailable Farah, Bandar Admitting Unavailable Kittoe, Yunior Attending Unavailable Rios, Tanisha Primary Care Unavailable [place], Bandar Consulting Unavailable Kittoe, Yunior Consulting Unavailable Farah, Bandar Admitting Unavailable Willis Frey Attending Unavailable Rios, Tanisha Primary Care Unavailable [place], Bandar Consulting Unavailable Kittoe, Yunior Consulting Unavailable Farah, Bandar Admitting Unavailable Kittoe, Yunior Attending Unavailable Rios, Tanisha Primary Care Unavailable [place], Bandar Consulting Unavailable Kittoe, Yunior Consulting Unavailable Willis Frey Attending Unavailable Willis Frey Referring Unavailable Farah, Bandar Admitting Unavailable Karen, Willis Attending Unavailable Rios, Tanisha Primary Care Unavailable [place], Bandar Consulting Unavailable Chaparro, Ean Consulting Unavailable Farah, Bandar Admitting Unavailable Chaparro, Ean Attending Unavailable Rios, Tanisha Primary Care Unavailable [place], Bandar Consulting Unavailable Chaparro, Ean Consulting Unavailable Colt Welch Attending Unavailable Steph Borrego Referring Unavailable Willis Frey Attending Unavailable Rios, Tanisha Referring Unavailable Mariano Melendrez Attending Unavailable [place], Bandar Referring Unavailable Raghunathan, Marta N. Attending Unavailable Raghunathan, Marta N. Referring Unavailable Rios, Tanisha Primary Care Unavailable PROBLEMS PROBLEMS DATE TYPE CONDITION / CODE ATTENDING STATUS SOURCE 04/25/2018 Unknown E11.65 - Type 2 Joshua, Active [facility] diabetes mellitus Marta N. [facility], [facility] with hyperglycemia / Hospital E11.65(ICD-10) Repository 03/29/2018 Unknown I25.10 - Willis Frey Active [facility] Atherosclerotic [facility] heart disease of [facility] [place] coronary Repository artery without angina pectoris / I25.10(ICD-10) 03/29/2018 Unknown Z95.5 - Presence of Willis Frey Active [facility] coronary angioplasty Community implant and graft / Hospital Z95.5(ICD-10) Repository 03/29/2018 Unknown E78.5 - Willis Frey Active [facility] Hyperlipidemia, Community unspecified / Hospital E78.5(ICD-10) Repository 04/24/2018 Unknown R10.9 - Unspecified Mariano Melendrez Active [facility] abdominal pain / Community R10.9(ICD-10) Hospital Repository 03/07/2018 Admitting Unknown / JAREDFREDY, Active [place] [facility], [facility] diagnosis UNK(Unknown) [facility] Repository 03/19/2018 Unknown I21.4 - Non-ST Yuri, Zachary Active [facility] elevation (NSTEMI) [facility] myocardial Hospital infarction / Repository I21.4(ICD-10) 03/19/2018 Unknown I10 - Essential Yuri, Zachary Active [facility] (primary) [facility] hypertension / Hospital I10(ICD-10) Repository 02/21/2018 Unknown Z96.652 - Presence Tereletsky, Active [facility] of left artificial Frederick [facility], [facility] knee joint / Hospital Z96.652(ICD-10) Repository 02/22/2018 Unknown T84.033A - Tereletsky, Active [facility] loos[facility] of internal left Hospital knee prosthetic Repository joint, initial encounter / T84.033A(ICD-10) 12/12/2017 Admitting Type 2 diabetes BLANCA STODDARD., Active 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 / Community L10.1(ICD-10) Hospital Repository 08/19/2017 Admitting Vitamin D MD SAMANTHA [facility] Diagnosis deficiency, KELSEA L [facility] unspecified / Repository E55.9(ICD-10) PROCEDURES PROCEDURES No Procedure Records FoundRESULTS RESULTS COMPREHENSIVE METABOLIC Collected: 04/25/2018 Status: F Source: [facility] PROFIL 8:30 AM [facility] REPOSITORY TYPE CODE TESTS RESULT OUT OF RANGE REFERENCE UNITS LAB L501.0100 74-106 mg/dL High GLU 171 Result Comment: Fasting Glucose result greater than or equal to 126 mg/dL suggests DIABETES MELLITUS per A.D.A. criteria. Please note revised GLUCOSE reference range effective 2017. LAB L501.1000 7-18 mg/dL Normal BUN 14 LAB L501.1100 0.70-1.30 mg/dL Normal CREAT,SERUM 1.01 Result Comment: The validity of the calculated GFR AND GFRAA in patients over 70 years has not been determined. Clinical correlation is essential. LAB L501.1110 >60 mL/min Normal EST GFR 78 Result Comment: Non- GFR Calc LAB L501.1115 >60 mL/min Normal EST GFR - AA 95 Result Comment: GFR Calc LAB L501.1300 10-20 RATIO Normal BUN/CRE 13.9 LAB L501.1500 6.4-8.2 g/dL T Normal PROT 7.3 LAB L501.1800 3.2-5.0 g/dL Normal ALB 3.5 LAB L501.1950 2.2-4.2 g/dL Normal GLOB 3.8 LAB L501.2000 0.9-2.4 RATIO Normal A/G 0.9 LAB L501.2200 8.5-10.1 mg/dL CA Normal 8.8 LAB L501.4100 15-37 U/L Normal AST 17 LAB L501.4305 45-117 U/L Normal ALK P 62 LAB L501.4405 16-61 U/L Normal ALT 25 LAB L501.4600 0.20-1.00 mg/dL T Normal BILI 0.60 LAB L501.5300 136-145 mmol/L NA Normal 141 LAB L501.5600 3.5-5.1 mmol/L K Normal 4.4 LAB L501.5900 98-107 mmol/L CL Normal 106 LAB L501.6100 21.0-32.0 mmol/L Normal CO2 26.0 LAB L501.6200 5-15 Normal GAP 9 Performed By: #### L500.4050 #### [facility] [address] [place], [place], [id number] HEMOGLOBIN A1C Collected: 04/25/2018 Status: F Source: [facility]THIAS 8:30 AM REPOSITORY TYPE CODE TESTS RESULT OUT OF RANGE REFERENCE UNITS LAB L501.9985 4.2-6.3 % High HGB A1C 7.6 Performed By: #### L501.9985 #### [facility] [address] [place], [address] MICROALB:CREAT Collected: 04/25/2018 Status: F Source: [facility] RATIO,RANDOM UR 8:30 AM REPOSITORY TYPE CODE TESTS RESULT OUT OF RANGE REFERENCE UNITS LAB L501.1200 NO RANGE EST. mg/dL Normal UR CREAT 129.00 LAB L502.0500 NO RANGE EST. mg/L Normal 17.0 MICROALBUMIN ,UR LAB L502.0600 <30 mg/g CRE mg/g CRE Normal 13.2 MALB:CREAT Performed By: #### L502.0250 #### [facility] [address] [place], [address] CARDIOLOGY VISIT Observed: 03/29/2018 Status: F Source: [place] REPORT 3:50 PM REPOSITORY [facility] [address] [place] [address] OFFICE VISIT Date of Service: 03/29/18 MR#: [id number] Acct: [id number] Name: JHONNY GRIJALVA Rep #: [id number] : 1950 Provider: Willis Frey MD Age/Sex: 67/M [place] [facility] [place]: Signed HPI HPI Chief Complaint: chest pain and high blood pressure at home Details: The patient is a 67 year old male with a past cardiovascular history which is included hyperlipidemia, hypertension, diabetes mellitus, CAD, status post CABG, who presents for evaluation of chest/abdominal discomfort with subsequent findings of abnormal cardiac enzymes superimposed on hypertensive urgency and admitted to [facility] on 03/13/18. The patient has been following with his primary test engine mechanic at [facility] in [place], [place]. However he has been evaluated at [facility] on 02/17/2018 by Willis Frey MD of the [facility] for his cardiovascular condition. At that time he underwent evaluation with a transthoracic echocardiogram that demonstrated the left ventricle to have regional wall motion abnormalities with an LVEF of 45-50% with moderate left atrial enlargement, trivial MR, mild TR, and an estimated RV systolic pressure of 45 mmHg. He also underwent diagnostic cardiac catheterization which demonstrated the left ventricle to have an LVEF of 55%, the left main coronary artery had 40% stenosis, the LAD was occluded, the LCx had mid 50% stenosis, the RCA was occluded, a FLANNERY to the first diagonal branch was patent, and SVG graft to the left PDA was patent. Continued medical management. He states he has been in contact with his primary test engine mechanic since that time including yesterday based upon his ongoing symptoms concerns and recommended increase of his nitrate therapy. He notes that his blood pressure has been difficult to control. It has been elevated. His family states that when his blood pressure is elevated he appears to be more symptomatic. He presented back to [facility] on for further evaluation. He was noted to have a markedly elevated systolic blood pressure of 212 mmHg with a diastolic blood pressure of 104 mmHg. He was placed in the PCU for further evaluation. His cardiac enzymes have been indeterminant. His ECG has demonstrated sinus rhythm with no acute ECG changes. A chest x-ray was performed which raised concerns of a right lower lobe infiltrate/pneumonia. He was placed on medical management which included IV antibiotic therapy. The patient's chest pain symptoms and questionable stenosis in his left circumflex, he underwent successful angioplasty and drug-eluting stent to his left circumflex on 03/15/18, receiving 3.0 ex-38 Promus Synergy stent, postdilated at various points between 3.3 and 3.5 mm. The patient is now here in follow-up. Patient is doing extremely well since his angioplasty and denies any chest pain, angina, shortness of breath or dyspnea on exertion. In fact, he feels much better since her angioplasty, sleeps better, and has more energy. He is awaiting to start cardiac rehab. In our office today's blood pressure is 110/60, pulse of 64 and regular. Physical exam is as below. EKG dated 03/16/18 shows sinus bradycardia, no acute changes. Lipids as of 03/14/18 show an LDL of 114 and HDL of 57. 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 Required: No Accompanied by: Is patient in pain?: No Allergies hydrochlorothiazide Allergy (Verified 03/29/18 15:37) Unknown Penicillins [PCN] Allergy (Verified 03/29/18 15:37) Swelling pioglitazone [From Actos] Allergy (Verified 03/29/18 15:37) Unknown oxycodone [From OxyIR] Adverse Reaction (Verified 03/29/18 15:37) Other pravastatin Adverse Reaction (Verified 03/29/18 15:37) Pain in joints Medications Aspirin [Aspirin EC] 81 mg PO DAILY 03/15/17 [History Confirmed 03/29/18] Bupropion HCl [Bupropion HCl ER] 100 mg PO LUNCH 03/15/17 [History Confirmed 03/29/18] Fluoxetine HCl [Prozac] 20 mg PO TID 03/15/17 [History Confirmed 03/29/18] Gabapentin [Neurontin] 300 mg PO TID 03/15/17 [History Confirmed 03/29/18] Insulin Human 70/30 [Novolog Mix 70-30 Flexpen Syrn] 30 units SUBCUT BIDCM 03/15/17 [History Confirmed 03/29/18] Multivitamin [Multiple Vitamins] 1 ea PO DAILY 03/15/17 [History Confirmed 03/29/18] buPROPion XL [Wellbutrin Xl] 300 mg PO DAILY 03/15/17 [History Confirmed 03/29/18] Isosorbide Mononitrate [Imdur] 120 mg PO DAILY 01/24/18 [History Confirmed 03/29/18] Quetiapine Fumarate [Seroquel] 25 mg PO BID 01/24/18 [History Confirmed 03/29/18] Clopidogrel Bisulfate [Plavix] 75 mg PO DAILY #30 tab 02/20/18 [Rx Confirmed 03/29/18] Donepezil HCl [Aricept] 10 mg PO QHS #30 tab 02/20/18 [Rx Confirmed 03/29/18] Metformin HCl [Glucophage] 1,500 mg PO DAILY 03/13/18 [History Confirmed 03/29/18] Amlodipine [Norvasc] 10 mg PO DAILY #30 tab 03/16/18 [Rx Confirmed 03/29/18] Isosorbide Mononitrate [Imdur] 60 mg PO QHS tab 03/16/18 [Rx Confirmed 03/29/18] Lisinopril [Zestril] 20 mg PO BID #60 tab 03/16/18 [Rx Confirmed 03/29/18] Nitroglycerin [Nitrostat] 0.4 mg SUBLINGUAL Q5M PRN #30 tab 03/16/18 [Rx Confirmed 03/29/18] Pantoprazole Sodium [Protonix] 40 mg PO DAILY #30 tab 03/16/18 [Rx Confirmed 03/29/18] Ranolazine [Ranexa] 500 mg PO BID #60 tab 03/16/18 [Rx Confirmed 03/29/18] metoprolol tartrate 25 mg tablet 25 mg PO BID 03/23/18 [History Confirmed 03/29/18] [facility] Medical History History of DVT (deep vein thrombosis) (Chronic) Nonrheumatic tricuspid (valve) insufficiency (Chronic) Secondary pulmonary hypertension (Chronic) Grade II diastolic dysfunction (Chronic) Systolic and diastolic CHF, acute (Acute) Atherosclerotic heart disease of [place] coronary artery without angina pectoris (Chronic 03/15/18) Non-STEMI (non-ST elevated myocardial infarction) (Acute 03/15/18) HLD (hyperlipidemia) (Chronic) HTN (hypertension) (Chronic) Acute blood loss anemia (Acute) DM2 (diabetes mellitus, type 2) (Chronic) Surgical History Stented coronary artery (Chronic 03/15/18) S/P CABG (coronary artery bypass graft) (Chronic) History of total left knee replacement (Chronic 02/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) Social History Smoking Status: Never smoker ROS Const Const: Positive for other (Had NSTEMI and JACI to LCX on 03/15/18); negative for fatigue, weakness, body ache, fever(s), headache(s), chills, frequent falls, night sweats, daytime sleepiness, difficulty sleeping, excessive sweating, weight gain, weight loss, increased appetite, poor appetite or anorexia Eyes Eyes: Negative for blind spots, loss of peripheral vision, transient loss of vision, blurry vision, change in vision, double vision, floaters, tunnel vision or other ENT ENT: Negative for dizziness, hearing loss, tinnitus, Nosebleed/epistaxis, balance problems, post nasal drip, lip swelling, tongue swelling, bleeding gums, hoarseness, neck pain, dry mouth, other or headache(s) Cardio Chest Pain: Yes (Y[place]ay, about 30 minutes or so.) Character: other (discomfort) Onset: other (after taking a shower, rushing around, ate quick breakfast) Location: mid sternal Duration: minutes (about 30 minutes) Relieving: other (took a pain pill) Palpitations: No Edema: Bilateral (Left >right, had right knee replacement) Muscle aches with walking: None Resp Respiratory: Negative for SOB with activity, SOB at rest, SOB orthopnea\SOB lying down, Cough, Coughing up blood/hemoptysis, chest congestion, pain on inspiration, snoring, stridor, wheezing, crackles, paroxysmal nocturnal dyspnea or other GI GI: Negative nausea, vomiting, heartburn, constipation, belching, bloating, cramping, vomiting blood/hematemesis, bright, red blood in stools, black,tarry stools, loose stools, Difficulty Swallowing or other : Negative for hematuria, frequent nighttime urination/ nocturia, erectile dysfunction or abnormal vaginal bleeding Musc Musc: Negative for balance problems, muscle aches/ myalgia, muscle weakness or joint pain Skin Skin: Negative redness, non-healing lesions, rash, unusual bruising, skin ulcer, wounds, jaundice or other Neuro Neuro: Negative for blurry vision, double vision, dizziness, lightheadedness, near syncope, syncope, orthostatic symptoms, confusion, memory loss, restless legs, vertigo, seizures, lack of coordination, other, weakness, headache(s) or frequent falls [place] Hematologic/Lymphatic: Negative for easy bleeding, easy bruising, enlarged lymph nodes or other Endo Endo: Negative for cold intolerance, heat intolerance, flushing, increased thirst/drinking, increased hunger, hair loss, hair growth, other, fatigue or excessive sweating Psych Psych: Negative for anxiety, depression, thoughts of harming anyone, thoughts of harming yourself, visual hallucinations, panic attacks or audible hallucinations Allergy Allergy/Immunology: Negative for lip swelling, Negative for tongue swelling, Negative for rash, Negative for throat swelling, Negative for hives Cardiology Exam Const Appearance: cooperative, healthy appearing and no acute distress Nutritional Appearance: well nourished Orientation: alert, oriented x3 and oriented to person Head Head: normal to inspection, atraumatic and normocephalic Nose: external nose normal Face and Sinus: face symmetric Mouth: oral mucosae normal Eyes General: appearance normal, both eyes and all related structures Eyelids: eyelids normal Conjunctivae: conjunctivae normal Pupils: PERRL and normal by confrontation EOM: EOM intact bilaterally Neck Neck: normal visual inspection and full ROM Carotids: normal carotid upstroke Chest Chest inspection: normal inspection of the chest Auscultation: Bilateral: Clear to Auscultation Cardio Palpation: normal PMI Rate: regular rate Rhythm: regular rhythm Heart sounds: S1 normal and S2 normal GI GI: normal to inspection, no hepatosplenomegaly and bowel sounds present Neuro General: alert, oriented x3, awake, CN's II-XI intact bilaterally and moves all extremities Skin Skin: no rashes or lesions noted Extremities Pulses: Normal: Right Femoral Pulse, Left Femoral Pulse, Right Dorsalis Pedis Pulse, Left Dorsalis Pedis Pulse, Right Posterior Tibial Pulse, Left Posterior Tibial Pulse, Right Radial Pulse, Left Radial Pulse Lower Extremity Edema: None: Bilateral Psych Psychological: normal affect Assessment AND Plan 1. Atherosclerotic heart disease of [place] coronary artery without angina pectoris I25.10 JACI of proximal LCX w/3.0 X 38 Promus Syncergy Plan 1. Coronary artery disease: The patient feels much better since his angioplasty and drug-eluting stenting to his left circumflex artery. He is taking and tolerating his medicines well. He is going to initiate cardiac rehab once he is completed with physical therapy. No additional stenting needed at this time In the meantime we will continue his baby aspirin, amlodipine, Plavix, Imdur, lisinopril. I have advised the patient to begin exercising after his cardiac rehab is been completed either by walking on a treadmill or an exercise bike Orders Orders: 2. HLD (hyperlipidemia) E78.5 Plan 2. Hyperlipidemia: We will repeat his lipid profile in 3 months time after he is completed cardiac rehab. Unfortunately is unable to tolerate statin based medicines. 3. Return office in 6 months. This note was generated using a voice recognition system and there may be incorrect words, spelling or punctuation that were not noted when reviewing the office note prior to saving. Orders Orders: Plan Detail Other Orders Orders: Follow Up +6M (Frey) Coding Level of Care Code Off vis,est,level 3 Diagnoses Atherosclerotic heart disease of [place] coronary artery without angina pectoris I25.10 HLD (hyperlipidemia) E78.5 Coding Level of Care Code Off vis,est,level 3 Diagnoses Atherosclerotic heart disease of [place] coronary artery without angina pectoris I25.10 HLD (hyperlipidemia) E78.5 03/29/18 1550 <Electronically signed by Willis Frey MD> Date Willis Frey MD Cosigner Signature: Date (if applicable) CC: Tanisha Rios MD 12 LEAD ELECTROCARDIOGRAM Observed: 03/19/2018 Status: F Source: [place] 2:56 PM REPOSITORY [facility] [place] [address] 12 Lead EKG 03/15/18 0915 MR#: [id number] Acct: [id number] Name: JHONYN GRIJALVA Rep #: [id number] : 1950 67 From: Colt Welch MD Attending Dr: Ean Mayfield MD Status: DIS IN Ordering Dr: Willis Frey MD Date: 03/15/18 Location: ICU Sex: M C Admitted: 03/14/18 Test Reason : POST PCI Blood Pressure : / mmHG Vent. Rate : 050 BPM Atrial Rate : 050 BPM P-R Int : 152 ms QRS Dur : 110 ms QT Int : 500 ms P-R-T Axes : 001 022 071 degrees QTc Int : 455 ms Sinus bradycardia Otherwise normal ECG When compared with ECG of 15-MAR-2018 05:22, MANUAL COMPARISON REQUIRED, DATA IS UNCONFIRMED Confirmed by COLT WELCH MD ([id number]), fashion editor ANNA GLASGOW ([id number]) on 03/19/2018 2:55:44 PM Referred By: KAREN Confirmed By:COLT WELCH MD 03/19/18 7395 Date Colt Welch MD CC: Willis Frey MD; Ean Mayfield MD; Tanisha Rios MD Signed 12 LEAD ELECTROCARDIOGRAM Observed: 03/19/2018 Status: F Source: [place] 2:56 PM [facility] REPOSITORY [facility] Cardiovascular Services [address] [place] [address] 12 Lead EKG 03/16/18 0532 MR#: [id number] Acct: [id number] Name: JHONNY GRIJALVA Rep #: [id number] : 1950 67 From: Colt Welch MD Attending Dr: Ean Mayfield MD Status: DIS IN Ordering Dr: Willis Frey MD Date: 03/16/18 Location: ICU Sex: M C Admitted: 03/14/18 Test Reason : AM Blood Pressure : / mmHG Vent. Rate : 052 BPM Atrial Rate : 052 BPM P-R Int : 154 ms QRS Dur : 106 ms QT Int : 472 ms P-R-T Axes : 080 019 059 degrees QTc Int : 438 ms Sinus bradycardia Otherwise normal ECG When compared with ECG of 15-MAR-2018 09:15, MANUAL COMPARISON REQUIRED, DATA IS UNCONFIRMED Confirmed by COLT WELCH MD ([id number]), fashion editor ANNA GLASGOW ([id number]) on 03/19/2018 2:55:54 PM Referred By: SOFI Confirmed By:COLT WELCH MD 03/19/18 1456 Date Colt Welch MD CC: Willis Frey MD; Ean Mayfield MD; Tanisha Rios MD Signed 12 LEAD ELECTROCARDIOGRAM Observed: 03/16/2018 Status: F Source: [place] 3:07 PM [facility] REPOSITORY [facility] Cardiovascular Services [address] [place] [address] 12 Lead EKG 03/13/18 1258 MR#: [id number] Acct: [id number] Name: JHONNY GRIJALVA Rep #: [id number] : 1950 67 From: Colt Welch MD Attending Dr: Ean Mayfield MD Status: DIS IN Ordering Dr: Bandar Villegas MD Date: 03/13/18 Location: ICU Sex: M C Admitted: 03/14/18 Test Reason : CP Blood Pressure : / mmHG Vent. Rate : 088 BPM Atrial Rate : 088 BPM P-R Int : 108 ms QRS Dur : 110 ms QT Int : 392 ms P-R-T Axes : 118 027 068 degrees QTc Int : 474 ms Sinus rhythm with short [place] with Premature atrial complexes Incomplete right bundle branch block Nonspecific ST abnormality Abnormal ECG When compared with ECG of 13-MAR-2018 06:53, MANUAL COMPARISON REQUIRED, DATA IS UNCONFIRMED Confirmed by COLT WELCH MD ([id number]), fashion editor ANNA GLASGOW ([id number]) on 03/16/2018 3:07:04 PM Referred By: ARIC Confirmed By:COLT WELCH MD 03/16/18 1507 Date Colt Welch MD CC: Bandar Villegas MD; Ean Mayfield MD; Tanisha Rios MD Signed 12 LEAD ELECTROCARDIOGRAM Observed: 03/16/2018 Status: F Source: [place] 3:05 PM REPOSITORY [facility] Cardiovascular Services [address] [place] [address] 12 Lead EKG 03/15/18 0522 MR#: [id number] Acct: [id number] Name: JHONNY GRIJALVA Rep #: [id number] : 1950 67 From: Colt Welch MD Attending Dr: Ean Mayfield MD Status: DIS IN Ordering Dr: Yunior Smith MD Date: 03/15/18 Location: ICU Sex: M C Admitted: 03/14/18 Test Reason : AM EKG Blood Pressure : / mmHG Vent. Rate : 054 BPM Atrial Rate : 054 BPM P-R Int : 156 ms QRS Dur : 110 ms QT Int : 480 ms P-R-T Axes : 022 003 059 degrees QTc Int : 455 ms Sinus bradycardia Incomplete right bundle branch block Borderline ECG When compared with ECG of 13-MAR-2018 12:58, MANUAL COMPARISON REQUIRED, DATA IS UNCONFIRMED Confirmed by COLT WELCH MD ([id number]), fashion editor ANNA GLASGOW ([id number]) on 03/16/2018 3:05:09 PM Referred By: LUIS Confirmed By:COLT WELCH MD 03/16/18 1505 Date Colt Welch MD CC: Yunior Smith MD; Ean Mayfield MD; Tanisha Rios MD Signed DISCHARGE SUMMARY Observed: 03/16/2018 Status: F Source: [place] 11:52 AM REPOSITORY [facility] Medical Records Department [address] [place] [address] Discharge Summary 03/16/18 0846 MR#: [id number] Acct: [id number] Name: JHONNY GRIJALVA Rep #: [id number] : 1950 67 From: Ean Mayfield MD PCP: Tanisha Rios MD Status: DIS IN Y Location: ICU [place] [address] Discharge Date and Diagnosis - Problem List Patient Problems: Active and Suspected Problems HCAP (healthcare-associated pneumonia) (Acute) Abnormal cardiac enzyme level (Acute) Abdominal discomfort (Acute) Date of Admission: 03/13/18 Date of Discharge: 03/16/18 - Primary Discharge Diagnosis Active and Suspected Problems Abnormal cardiac enzyme level (Acute) Abdominal discomfort (Acute) Non-STEMI secondary to single vessel disease. 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 Borrego, postoperative period was complicated by development of acute non-STEMI. Patient underwent left heart catheterization on 02/20/2018 which demonstrated triple-vessel disease involving an occluded RCA, and occluded LAD 50% circumflex stenosis. Medical management was recommended by Dr. Frey with cardiology unless consideration for PCI if patient became symptomatic. Patient presented to the emergency department with exertional dyspnea and some shortness of breath and markedly elevated systolic blood pressure. 1. Non-STEMI with known CAD secondary to single-vessel disease, mid left circumflex 75% stenosis. Patient has been admitted to a monitored bed treatment initiated per protocol with continuation of his dual antiplatelet therapy, beta blockers, therapeutic Lovenox as well as nitrates. The patient was seen by test engine mechanic Dr. Villegas and then Dr. Frey. Patient underwent successful PTCA/JACI to approximately mid circumflex lesion by Dr. Frey on 03/15/18. Subsequently transferred to the intensive care unit following the procedure. 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 Acute hypertensive crisis patient systolic blood pressure upon admission was greater than 200 millimeters Hg home medications continued with dose adjustment in addition to hydralazine as needed. Blood pressure was controlled. Lisinopril 40 mg daily was changed to 20 mg twice daily. Amlodipine 10 mg was added. Prescription sent to the pharmacy. 3. Pneumonia ruled out there was a questionable infiltrate on chest x-ray however patient was afebrile without leukocytosis saturating percent on room air. Antibiotics initiated on admission subsequently discontinued findings on chest x-ray attributed to atelectasis. On incentive spirometry 4. Recent revision of left total knee arthroplasty by Dr. Borrego on 02/15/2018 5. Coronary artery disease with 2 previous CABG and a recent left heart catheterization results as stated above 6. Diabetes mellitus type II: Controlled was held patient's oral hypoglycemics held. Placed on long acting insulin, Accu-Cheks a.c. and at bedtime and covered with sliding scale insulin. Blood sugar was controlled. 7. Previous history of DVT treated with Xarelto 8. Morbid obesity BMI of 30 seven-point 9. DVT prophylaxis: Lovenox Medication reconciliation was done. Discharge medications discussed with Dr. Frey, patient, patient's and his daughter near the bedside. Patient was on Pletal before for reason unclear but possible peripheral arterial disease. Patient and family agreed for discontinuation of Pletal as 3 antiplatelet agent will increase the risk of bleeding. Patient is on aspirin, Plavix, metoprolol, lisinopril, high-dose of isosorbide mononitrate and Ranexa 500 mg twice daily, sublingual nitro. Necessary scripts sent to pharmacy. Patient also has possible GERD symptoms with acid reflux. Prescription for Protonix sent to pharmacy. Discharge follow-up instructions discussed with the patient and his family present in the room. Total time spent, exact 35 minutes on discharge meds reconciliation, examination, review of imaging and blood test and discussion with the patient on follow-up instructions. Patient Problems: Active and Suspected Problems HCAP (healthcare-associated pneumonia) (Acute) Abnormal cardiac enzyme level (Acute) Abdominal discomfort (Acute) Subjective: Patient was seen and examined. Heart rate and 50s. Sinus rhythm. Patient had PCI/JACI of mid circumflex lesion by Dr. Frey yesterday. Patient had an episode of nonexertional atypical chest pain yesterday evening that led with sublingual nitro. Denies any chest pain afterwards. Blood pressure has been better controlled in the 140s. Right groin dressing is dry. - Physical Exam General: Alert, Oriented x3, Cooperative HEENT: Atraumatic, PERRLA, EOMI, Normocephalic Neck: Supple, No JVD, Negative Carotid Bruits Lungs: Clear to auscultation, No rhonchi, No wheeze, No rales, Diminished Cardiovascular: Regular Rhythm, Normal S1, Normal S2, No murmurs, Bradycardic, - - Heart rate in 50s Abdomen: Bowel Sounds Present, Soft, Non Tender, Non-Distended, - - diminished peripheral pulses in popliteal and DURAL MECHANIC and DPA Extremities: Capillary Refill Less than 3 Seconds, Edema Skin: No rashes, No breakdown Musculoskeletal: No Tenderness to Palpation of Joints or Extremities, Arthritic Changes Lymphatic: No Cervical, Supraclavicular, or Inguinal Adenopathy Neurological: Cranial nerves II-XII grossly intact, Deep Tendon Reflexes 2+/4 and Symmetrical, Neuro grossly intact, Motor Exam 5/5 strength throughout Psych/Mental Status: Normal Affect, Appropriate Vital Signs Temp Pulse Resp BP Pulse Ox 97.9 F 54 L 19 H 148/68 H 100 03/16/18 07:00 03/16/18 07:00 03/16/18 07:00 03/16/18 07:00 03/16/18 07:00 Oxygen Flow Rate (L/min) 2 Oxygen Delivery Method Room Air Weight: 240 lb 4.862 oz Body Mass Index (BMI) 37.8 Finger Stick Blood Glucose 272 Intake and Output for Last 24 Hours Intake Total 720 / 720 2580 / 2580 360 / 360 Output Total 600 / 600 1200 / 1200 Balance 120 / 120 1380 / 1380 360 / 360 Laboratory Tests Past 24 Hrs WBC 6.2 RBC 3.68 L Hgb 10.9 L Hct 33.9 L MCV 92.1 MCH 29.6 MCHC 32.2 RDW 13.3 POC Glucose POC Glucose 175 H 83 138 H POC Glucose 128 H 146 H Discharge Activity: May Not Drive - at least for 2 weeks and then follow with PCP. Call your doctor if you observe: Fever of 101 or Higher, Numbness or Tingling, Inability to urinate, Shortness of breath, Fainting spells, Swelling in the ankles, Chest pain Home Medications: Medications to take at Discharge Aspirin [Aspirin EC] 81 mg PO DAILY 03/15/17 Bupropion HCl [Bupropion HCl ER] 100 mg PO LUNCH 03/15/17 Fluoxetine HCl [Prozac] 20 mg PO TID 03/15/17 Gabapentin [Neurontin] 300 mg PO TID 03/15/17 Insulin Human 70/30 [Novolog Mix 70-30 Flexpen Syrn] 30 units SC BIDCM 03/15/17 Multivitamin [Multiple Vitamins] 1 each PO DAILY 03/15/17 buPROPion XL [Wellbutrin Xl] 300 mg PO DAILY 03/15/17 Isosorbide Mononitrate [Imdur] 120 mg PO DAILY 01/24/18 Quetiapine Fumarate [Seroquel] 25 mg PO BID 01/24/18 Clopidogrel Bisulfate [Plavix] 75 mg PO DAILY #30 tablet 02/20/18 Donepezil HCl [Aricept] 10 mg PO QHS #30 tablet 02/20/18 Metformin HCl [Glucophage] 1,500 mg PO DAILY 03/13/18 Amlodipine [Norvasc] 10 mg PO DAILY #30 tablet 03/16/18 Isosorbide Mononitrate [Imdur] 60 mg PO QHS tablet 03/16/18 Lisinopril [Zestril] 20 mg PO BID #60 tablet 03/16/18 Metoprolol Tartrate [Lopressor (beta poonam)] 50 mg PO BID #60 tablet 03/16/18 Nitroglycerin [Nitrostat] 0.4 mg SUBLINGUAL Q5M PRN #30 tablet 03/16/18 Pantoprazole Sodium [Protonix] 40 mg PO DAILY #30 tablet 03/16/18 Ranolazine [Ranexa] 500 mg PO BID #60 tablet 03/16/18 Following Prescrptions Were Given to Patient: Amlodipine [Norvasc] 10 mg PO DAILY #30 tablet Nitroglycerin [Nitrostat] 0.4 mg SUBLINGUAL Q5M PRN #30 tablet PRN Reason: Chest Pain Pantoprazole Sodium [Protonix] 40 mg PO DAILY #30 tablet Lisinopril [Zestril] 20 mg PO BID #60 tablet Metoprolol Tartrate [Lopressor (beta poonam)] 50 mg PO BID #60 tablet Ranolazine [Ranexa] 500 mg PO BID #60 tablet Primary Care Physician: Tanisha Rios MD [Primary Care Provider] - Please follow up with your Primary Care Physician in: IN 1- 2 Weeks Please Follow Up With: Willis Frey MD When: in 2 weeks Medical Necessity - Tobacco Use Smoking Status: Never smoker Meaningful Use Info Meaningful Use Diagnoses (Choose all that apply): AMI - AMI Aspirin given w/in 24hrs of arrival?: Yes ASA at discharge?: Yes Statins at discharge?: No Reason statins not ordered:: Allergy Emeka/ARB at discharge?: Yes Beta Poonam at discharge?: Yes Done w/ Acute VT measure.: Yes Code Visit Inpatient E AND M: 85111 Disch Hosp 03/16/18 1152 <Electronically signed by Ean Mayfield MD> Date Ean Mayfield MD Cosigner Signature (if applicable): Date CC: Ean Mayfield MD; Tanisha Rios MD Signed DISCHARGE INSTRUCTION Observed: 03/16/2018 Status: F Source: [place] 8:46 AM REPOSITORY [facility] Medical Records Department [address] [place] [address] Instructions for Home/Discharge Instructions 03/16/18 0809 MR#: [id number] Acct: [id number] Name: JHONNY GRIJALVA Rep #: [id number] : 1950 67 From: Ean Mayfield MD PCP: Tanisha Rios MD Status: ADM IN - Discharge Diagnoses Current Active Problems: Current Active and Chronic Problems HCAP (healthcare-associated pneumonia) (Acute) Abnormal cardiac enzyme level (Acute) S/P CABG (coronary artery bypass graft) (Chronic) HLD (hyperlipidemia) (Chronic) HTN (hypertension) (Chronic) Abdominal discomfort (Acute) You will use the following diet at home:: Calorie/Carbohydrate Controlled (specify 1200, 1400, etc) - 1800 ADA diet, Cardiac Discharge Activity: May Not Drive - at least for 2 weeks and then follow with PCP. Call your doctor if you observe: Fever of 101 or Higher, Numbness or Tingling, Inability to urinate, Shortness of breath, Fainting spells, Swelling in the ankles, Chest pain Allergies/Adverse Reactions: Allergies hydrochlorothiazide Allergy (Verified 02/13/18 10:13) Unknown Penicillins [PCN] Allergy (Verified 02/13/18 10:13) Swelling pioglitazone [From Actos] Allergy (Verified 02/13/18 10:13) Unknown oxycodone [From OxyIR] Adverse Reaction (Verified 02/15/18 23:25) Other pravastatin Adverse Reaction (Verified 02/13/18 10:13) Pain in joints Medications to take at Discharge Aspirin [Aspirin EC] 81 mg PO DAILY 03/15/17 Bupropion HCl [Bupropion HCl ER] 100 mg PO LUNCH 03/15/17 Fluoxetine HCl [Prozac] 20 mg PO TID 03/15/17 Gabapentin [Neurontin] 300 mg PO TID 03/15/17 Insulin Human 70/30 [Novolog Mix 70-30 Flexpen Syrn] 30 units SC BIDCM 03/15/17 Multivitamin [Multiple Vitamins] 1 each PO DAILY 03/15/17 buPROPion XL [Wellbutrin Xl] 300 mg PO DAILY 03/15/17 Isosorbide Mononitrate [Imdur] 120 mg PO DAILY 01/24/18 Quetiapine Fumarate [Seroquel] 25 mg PO BID 01/24/18 Clopidogrel Bisulfate [Plavix] 75 mg PO DAILY #30 tablet 02/20/18 Donepezil HCl [Aricept] 10 mg PO QHS #30 tablet 02/20/18 Metformin HCl [Glucophage] 1,500 mg PO DAILY 03/13/18 Amlodipine [Norvasc] 10 mg PO DAILY #30 tablet 03/16/18 Isosorbide Mononitrate [Imdur] 60 mg PO QHS tablet 03/16/18 Lisinopril [Zestril] 20 mg PO BID #60 tablet 03/16/18 Metoprolol Tartrate [Lopressor (beta poonam)] 50 mg PO BID #60 tablet 03/16/18 Nitroglycerin [Nitrostat] 0.4 mg SUBLINGUAL Q5M PRN #30 tablet 03/16/18 Pantoprazole Sodium [Protonix] 40 mg PO DAILY #30 tablet 03/16/18 Ranolazine [Ranexa] 500 mg PO BID #60 tablet 03/16/18 The following prescriptions were given: Amlodipine [Norvasc] 10 mg PO DAILY #30 tablet Nitroglycerin [Nitrostat] 0.4 mg SUBLINGUAL Q5M PRN #30 tablet PRN Reason: Chest Pain Pantoprazole Sodium [Protonix] 40 mg PO DAILY #30 tablet Lisinopril [Zestril] 20 mg PO BID #60 tablet Metoprolol Tartrate [Lopressor (beta poonam)] 50 mg PO BID #60 tablet Ranolazine [Ranexa] 500 mg PO BID #60 tablet Primary Care Physician: Tanisha Rios MD [Primary Care Provider] - Please follow up with your Primary Care Physician in: IN 1- 2 Weeks Test Results: Test results from this visit will be discussed in further detail at your follow-up appointment, if applicable. Please Follow Up With: Willis Frey MD When: in 2 weeks 03/16/18 0846 <Electronically signed by Ean Mayfield MD> Date Ean Mayfield MD CC: Bandar Villegas MD; Tanisha Rios MD BEDSIDE GLUCOSE Collected: 03/16/2018 Status: F Source: [place] [facility] TYPE CODE TESTS RESULT OUT OF REFERENCE UNITS RANGE LAB L501.080 70-110 mg/dL High BEDSIDE GLU 165 Result Comment: Dr Do Followed MANAGEMENT OF PATIENT CARE PER NURSING PROTOCOL Performed By: #### L501.080 #### [facility] Laboratory Point of Care [address] [place] [place], [place] [address] BASIC METABOLIC Collected: 03/16/2018 Status: F Source: [place] PROFILE (BMP) 5:40 AM REPOSITORY TYPE CODE TESTS RESULT OUT OF RANGE REFERENCE UNITS LAB L501.0100 74-106 mg/dL High GLU 181 Result Comment: Fasting Glucose result greater than or equal to 126 mg/dL suggests DIABETES MELLITUS per A.D.A. criteria. Please note revised GLUCOSE reference range effective 2017. LAB L501.1000 7-18 mg/dL High BUN 26 LAB L501.1100 0.70-1.30 mg/dL Normal CREAT,SERUM 1.08 Result Comment: The validity of the calculated GFR AND GFRAA in patients over 70 years has not been determined. Clinical correlation is essential. LAB L501.1110 >60 mL/min Normal EST GFR 72 Result Comment: Non- GFR Calc LAB L501.1115 >60 mL/min Normal EST GFR - AA 88 Result Comment: GFR Calc LAB L501.1255 ml/min Normal Estimated CRCL 62.05 LAB L501.1300 10-20 RATIO High BUN/CRE 24.1 LAB L501.2200 8.5-10 mg/dL Normal .1 CA 8.9 LAB L501.5300 136-14 mmol/L Normal 5 NA 141 LAB L501.5600 3.5-5. mmol/L Normal 1 K 4.4 LAB L501.5900 98-107 mmol/L Normal CL 105 LAB L501.6100 21.0-3 mmol/L Normal 2.0 CO2 27.0 LAB L501.6200 5-15 Normal GAP 9 Performed By: #### L500.2500 #### [facility] [address] [place], [place], [id number] CBC-COMPLETE BLOOD CNT Collected: 03/16/2018 Status: F Source: [place] NO DIFF 5:40 AM REPOSITORY TYPE CODE TESTS RESULT OUT OF RANGE REFERENCE UNITS LAB L100.1000 4.4-11.0 K/mm3 Normal WBC 6.2 LAB L100.1200 4.6-6.2 M/mm3 Low RBC 3.68 LAB L100.1300 13.0-16.5 g/dl Low HGB 10.9 LAB L100.1400 40-54 % Low HCT 33.9 LAB L100.1500 80-94 fL Normal MCV 92.1 LAB L100.1600 27.0-32.0 pg Normal MCH 29.6 LAB L100.1700 32-36 g/gl Normal MCHC 32.2 LAB L100.1810 11.6-14.6 % Normal RDW CV 13.3 LAB L100.1820 35.1-43.9 fl Normal RDW SD 43.3 LAB L100.1900 150-450 K/mm3 Normal PLT 231 LAB L100.2000 6.2-12.0 fl Normal MPV 11.8 Performed By: #### L100.0500 #### [facility] [address] [facility] [id number] BEDSIDE GLUCOSE Collected: 03/16/2018 Status: F Source: [place] 5:34 AM REPOSITORY TYPE CODE TESTS RESULT OUT OF REFERENCE UNITS RANGE LAB L501.080 70-110 mg/dL High BEDSIDE GLU 175 Result Comment: MANAGEMENT OF PATIENT CARE PER NURSING PROTOCOL Performed By: #### L501.080 #### [facility] Point of Care [address] [place] [address] BEDSIDE GLUCOSE Collected: 03/15/2018 Status: F Source: [place] 11:15 PM REPOSITORY TYPE CODE TESTS RESULT OUT OF RANGE REFERENCE UNITS LAB L501.080 70-110 mg/dL Normal BEDSIDE GLU 83 Result Comment: MANAGEMENT OF PATIENT CARE PER NURSING PROTOCOL Performed By: #### L501.080 #### [facility] Point of [facility] [address] [place], [place] [id number] BEDSIDE GLUCOSE Collected: 03/15/2018 Status: F Source: [place] 9:47 PM REPOSITORY TYPE CODE TESTS RESULT OUT OF REFERENCE UNITS RANGE LAB L501.080 70-110 mg/dL High BEDSIDE GLU 138 Result Comment: MANAGEMENT OF PATIENT CARE PER NURSING PROTOCOL Performed By: #### L501.080 #### [facility] Laboratory Point of Care [address] [place] [address] BEDSIDE GLUCOSE Collected: 03/15/2018 Status: F Source: [place] 4:58 PM REPOSITORY TYPE CODE TESTS RESULT OUT OF REFERENCE UNITS RANGE LAB L501.080 70-110 mg/dL High BEDSIDE GLU 128 Result Comment: MANAGEMENT OF PATIENT CARE PER NURSING PROTOCOL Performed By: #### L501.080 #### [facility] Laboratory Point of Care [address] [place] [address] 12 LEAD ELECTROCARDIOGRAM Observed: 03/15/2018 Status: F Source: [place] 1:49 PM REPOSITORY [facility] Cardiovascular Services [address] [place] [address] 12 Lead EKG 03/13/18 0653 MR#: [id number] Acct: [id number] Name: JHONNY GRIJALVA Rep #: [id number] : 1950 67 From: Bandar Villegas MD Attending Dr: Yunior Smith MD Status: ADM IN Ordering Dr: Bandar Farah MD Date: 03/13/18 Location: ICU Sex: M C Admitted: 03/14/18 Test Reason : CP REPEAT Blood Pressure : / mmHG Vent. Rate : 080 BPM Atrial Rate : 080 BPM P-R Int : 150 ms QRS Dur : 110 ms QT Int : 402 ms P-R-T Axes : 068 032 069 degrees QTc Int : 463 ms Normal sinus rhythm Incomplete right bundle branch block Nonspecific ST abnormality Abnormal ECG Confirmed by JEIMY STODDARD, BANDAR ([id number]), fashion editor ANNA GLASGOW ([id number]) on 03/15/2018 1:49:11 PM Referred By: ARIC Confirmed By:BANDAR VILLEGAS MD 03/15/18 5337 Date Bandar Villegas MD CC: Yunior Smith MD; Bandar Farah MD; Tanisha Rios MD Signed 12 LEAD ELECTROCARDIOGRAM Observed: 03/15/2018 Status: F Source: [place] 1:42 PM REPOSITORY [facility] Cardiovascular Services [address] [place] [address] 12 Lead EKG 03/13/18 0428 MR#: [id number] Acct: [id number] Name: JHONNY GRIJALVA Rep #: [id number] : 1950 67 From: Bandar Villegas MD Attending Dr: Luis STODDARD,Yunior Status: ADM IN Ordering Dr: Charlie Golden MD Date: 03/13/18 Location: ICU Sex: M C Admitted: 03/14/18 Test Reason : CP Blood Pressure : / mmHG Vent. Rate : 074 BPM Atrial Rate : 074 BPM P-R Int : 152 ms QRS Dur : 108 ms QT Int : 412 ms P-R-T Axes : 046 031 062 degrees QTc Int : 457 ms Normal sinus rhythm Incomplete right bundle branch block Borderline ECG Confirmed by JEIMY STODDARD, BANDAR ([id number]), fashion editor ANNA GLASGOW ([id number]) on 03/15/2018 1:42:06 PM Referred By: RANYD Confirmed By:BANDAR VILLEGAS MD 03/15/18 1342 Date Bandar Villegas MD CC: Yunior Smith MD; Charlie Golden MD; Tanisha Rios MD Signed BEDSIDE GLUCOSE Collected: 03/15/2018 Status: F Source: [place] 10:21 AM REPOSITORY TYPE CODE TESTS RESULT OUT OF REFERENCE UNITS RANGE LAB L501.080 70-110 mg/dL High BEDSIDE GLU 146 Result Comment: MANAGEMENT OF PATIENT CARE PER NURSING PROTOCOL Performed By: #### L501.080 #### [facility] Laboratory Point of Care [address] [place] [address] ACT ACTIVATED CLOTTING Collected: 03/15/2018 Status: F Source: [place] TIME 8:40 AM REPOSITORY TYPE CODE TESTS RESULT OUT OF RANGE REFERENCE UNITS LAB L9100.0100 74-137 sec High ACTk CLOT 175 TIME Performed By: #### L9100.0100 #### [facility] Laboratory Point of Care [address] [place] [address] BEDSIDE GLUCOSE Collected: 03/15/2018 Status: F Source: [place] 6:32 AM REPOSITORY TYPE CODE TESTS RESULT OUT OF REFERENCE UNITS RANGE LAB L501.080 70-110 mg/dL High BEDSIDE GLU 151 Result Comment: MANAGEMENT OF PATIENT CARE PER NURSING PROTOCOL Performed By: #### L501.080 #### [facility] Laboratory Point of Care [address] [place] [address] PROTHROMBIN TIME W/INR Collected: 03/15/2018 Status: F Source: [place] 5:00 AM REPOSITORY TYPE CODE TESTS RESULT OUT OF RANGE REFERENCE UNITS LAB L300.4150 11.7-14.9 SECONDS Normal PROTIME 13.3 LAB L300.4200 Normal INR 1.0 Performed By: #### L300.3900, L300.4310 #### [facility] [address] [place], [address] PARTIAL THROMBOPLAST Collected: 03/15/2018 Status: F Source: [place] TIME 5:00 AM REPOSITORY TYPE CODE TESTS RESULT OUT OF RANGE REFERENCE UNITS LAB L300.4310 24.1-36.2 Seconds Normal PTT 30.9 Performed By: #### L300.3900, L300.4310 #### [facility] [address] [place], [address] CBC W/DIFF, AUTOMATED Collected: 03/15/2018 Status: F Source: [place] 5:00 AM REPOSITORY TYPE CODE TESTS RESULT OUT OF RANGE REFERENCE UNITS LAB L100.1000 4.4-11.0 K/mm3 Normal WBC 6.2 LAB L100.1200 4.6-6.2 M/mm3 Low RBC 3.65 LAB L100.1300 13.0-16.5 g/dl Low HGB 10.8 LAB L100.1400 40-54 % Low HCT 33.2 LAB L100.1500 80-94 fL Normal MCV 91.0 LAB L100.1600 27.0-32.0 pg Normal MCH 29.6 LAB L100.1700 32-36 g/gl Normal MCHC 32.5 LAB L100.1810 11.6-14.6 % Normal RDW CV 13.2 LAB L100.1820 35.1-43.9 fl Normal RDW SD 42.9 LAB L100.1900 150-450 K/mm3 Normal PLT 239 LAB L100.2000 6.2-12.0 fl Normal MPV 11.9 LAB L100.2100 47-70 % Normal NEUT% 48.5 LAB L100.2200 19-41 % Normal LY% 38.8 LAB L100.2300 0-10 % Normal MONO% 7.4 LAB L100.2400 0-5 % Normal EO% 4.8 LAB L100.2500 0-1 % Normal BASO% 0.3 LAB L100.2550 0.0-0.9 % Normal IM GRAN % 0.200 Result Comment: IG% - Immature Granulocytes (promyelocytes, myelocytes and metamyelocytes) > 1% indicates that a LEFT SHIFT is Present. LAB L100.2620 2.0-7.7 X10 3/uL Normal Absolute Neut 3.0 LAB L100.2720 0.83-4.51 X10 3/ul Normal Absolute Lymph 2.42 Performed By: #### L100.0100 #### [facility] [address] [place], [address] BASIC METABOLIC Collected: 03/15/2018 Status: F Source: [place] PROFILE ([facility]) 5:00 AM REPOSITORY TYPE CODE TESTS RESULT OUT OF RANGE REFERENCE UNITS LAB L501.0100 74-106 mg/dL High GLU 147 Result Comment: Fasting Glucose result greater than or equal to 126 mg/dL suggests DIABETES MELLITUS per A.D.A. criteria. Please note revised GLUCOSE reference range effective 2017. LAB L501.1000 7-18 mg/dL High BUN 33 LAB L501.1100 0.70-1.30 mg/dL High CREAT,SERUM 1.45 Result Comment: The validity of the calculated GFR AND GFRAA in patients over 70 years has not been determined. Clinical correlation is essential. LAB L501.1110 >60 mL/min Low EST GFR 51 Result Comment: Non- GFR Calc LAB L501.1115 >60 mL/min Normal EST GFR - AA 62 Result Comment: GFR Calc LAB L501.1255 ml/min Normal Estimated CRCL 46.22 LAB L501.1300 10-20 RATIO High BUN/CRE 22.8 LAB L501.2200 8.5-10 mg/dL Normal .1 CA 9.1 LAB L501.5300 136-14 mmol/L Normal 5 NA 139 LAB L501.5600 3.5-5. mmol/L Normal 1 K 4.2 LAB L501.5900 98-107 mmol/L Normal CL 101 LAB L501.6100 21.0-3 mmol/L Normal 2.0 CO2 29.0 LAB L501.6200 5-15 Normal GAP 9 Performed By: #### L500.2500 #### [facility] [address] [place], [place], [address] URINALYSIS, COMPLETE Collected: 03/15/2018 Status: F Source: [place] 2:41 AM REPOSITORY Order Comment: How was Urine Obtained? TONGSMAN TO SPECIFY TYPE CODE TESTS RESULT OUT OF RANGE REFERENCE UNITS LAB L400.3000 Yellow COLOR Normal Yellow LAB L400.3050 Clear Normal CLARITY Clear LAB L400.3200 Normal mg/dl Normal GLUCOSE, UR Normal LAB L400.3300 Negative mg/dL Normal BILIRUBIN URINE Negative LAB L400.3400 Negative mg/dl Normal KETONE UR Negative LAB L400.3465 1.002-1.030 Normal SP.GR. DIPSTX 1.030 LAB L400.3550 5.0 - 8.0 pH UR Normal 5.0 LAB L400.3600 Negative mg/dl PROT Normal DIPSTX Negative LAB L400.3700 Normal mg/dl Normal UROBILI Normal LAB L400.3750 Negative Normal NITRITE UR Negative LAB L400.3780 Negative /ul Normal OCCULT BLOOD-UR Negative LAB L400.3800 Negative /ul LEUK Normal ESTERASE Negative LAB L400.4050 0-5 /hpf WBC Normal 0-5 SEEN LAB L400.4100 0-5 /hpf 0 Normal RBC-UA SEEN LAB L400.4150 0-5 /hpf SQUAM 0 Normal EPI SEEN LAB L400.4300 None Seen /hpf 0 Normal BACTERIA SEEN LAB L400.4350 <or=2+ /hpf 0 Normal MUCUS, URINE SEEN LAB L400.4400 0-5 /lpf Normal HYALINE CAST 5-10 SEEN Performed By: #### L400.0001 #### [facility] [address] [place], [address] BEDSIDE GLUCOSE Collected: 03/14/2018 Status: F Source: [place] 9:03 PM REPOSITORY TYPE CODE TESTS RESULT OUT OF REFERENCE UNITS RANGE LAB L501.080 70-110 mg/dL High BEDSIDE GLU 118 Result Comment: MANAGEMENT OF PATIENT CARE PER NURSING PROTOCOL Performed By: #### L501.080 #### [facility] Laboratory Point of Care [address] [place] [address] ABD AORTIC/IVC DUPLEX Observed: 03/14/2018 Status: F Source: [place] SCAN 5:28 PM REPOSITORY [facility] Cardiovascular Services [address] [place] [address] Abd Aortic/IVC Duplex scan 03/14/18817 MR#: [id number] Acct: [id number] Name: JHONNY GRIJALVA Rep #: [id number] : 1950 67 From: Mariano Melendrez MD Attending Dr: Yunior Smith MD Status: ADM IN Ordering Dr: Bandar Villegas MD Date: 03/14/18 Location: U Sex: M C Admitted: 03/14/18 Reason For Study: Abdominal Pain Aorta Measurements Aorta Doppler Measurements Proximal aorta measures2.01cm x 2.04cm. in cross- Peak systolic flow velocities within the proximal sectional axis. aorta measure 73 cm/sec. Proximal aorta measures1.99cm. in longitudinal Peak systolic flow velocities within the mid aorta axis. measure 64 cm/sec. Mid aorta measures1.89cm x 2.04cm. in cross- Peak systolic flow velocities within the distal sectional axis. aorta measure 70 cm/sec. Mid aorta measures1.82cm. in longitudinal axis. Distal aorta measures1.71cm x 1.73cm. in cross- sectional axis. Distal aorta measures1.79cm. in longitudinal axis. Left Iliac Artery Left iliac artery measures 1.22cm x 1.16 cm. in the cross- sectional axis. Left iliac artery measures 1.24 cm. in the longitudinal axis. Peak systolic velocity in the left iliac artery measures 68 cm/sec. Right Iliac Artery Right iliac artery measures 1.29cm x 1.33 cm. in the cross- sectional axis. Right iliac artery measures 1.13 cm. in the longitudinal axis. Peak systolic velocity in the right iliac artery measures 84 cm/sec. Procedure Aorta IVC Iliac vasculature or bypass grafts 68811. Exam performed portable in patient room. Interpretation Summary Normal abdominal aorta with maximal proximal diameter 2.01 x 2.04cm and normal flow Left common iliac 1.22 x 1.16cm Right common iliac 1.29 x 1.33cm Ordering Physician: Bandar Villegas Referring Physician: Tanisha Rios Performed By: Marita Tesfaye, FAWAD, RVT 03/14/181726 Date Mariano Melendrez MD CC: Yunior Smith MD; Bandar Villegas MD; Tanisha Rios MD Date Dictated: 03/14/18817 Date Transcribed: 03/14/181726 Human Resource Manager: Signed BEDSIDE GLUCOSE Collected: 03/14/2018 Status: F Source: [place] 4:48 PM REPOSITORY TYPE CODE TESTS RESULT OUT OF RANGE REFERENCE UNITS LAB L501.080 70-110 mg/dL Normal BEDSIDE GLU 87 Result Comment: MANAGEMENT OF PATIENT CARE PER NURSING PROTOCOL Performed By: #### L501.080 #### [facility] Point of Care [facility] [place] [address] BEDSIDE GLUCOSE Collected: 03/14/2018 Status: F Source: [place] 11:15 AM REPOSITORY TYPE CODE TESTS RESULT OUT OF REFERENCE UNITS RANGE LAB L501.080 70-110 mg/dL High BEDSIDE GLU 160 Result Comment: MANAGEMENT OF PATIENT CARE PER NURSING PROTOCOL Performed By: #### L501.080 #### [facility] Laboratory Point of Care [address] [place] [address] BEDSIDE GLUCOSE Collected: 03/14/2018 Status: F Source: [place] 6:39 AM REPOSITORY TYPE CODE TESTS RESULT OUT OF REFERENCE UNITS RANGE LAB L501.080 70-110 mg/dL High BEDSIDE GLU 121 Result Comment: MANAGEMENT OF PATIENT CARE PER NURSING PROTOCOL Performed By: #### L501.080 #### [facility] Laboratory Point of Care [address] [place] [address]. [place], [place] [id number] CBC-COMPLETE BLOOD CNT Collected: 03/14/2018 Status: F Source: [place] NO DIFF 5:30 AM REPOSITORY TYPE CODE TESTS RESULT OUT OF RANGE REFERENCE UNITS LAB L100.1000 4.4-11.0 K/mm3 Normal WBC 6.7 LAB L100.1200 4.6-6.2 M/mm3 Low RBC 3.82 LAB L100.1300 13.0-16.5 g/dl Low HGB 11.4 LAB L100.1400 40-54 % Low HCT 34.9 LAB L100.1500 80-94 fL Normal MCV 91.4 LAB L100.1600 27.0-32.0 pg Normal MCH 29.8 LAB L100.1700 32-36 g/gl Normal MCHC 32.7 LAB L100.1810 11.6-14.6 % Normal RDW CV 13.2 LAB L100.1820 35.1-43.9 fl Normal RDW SD 43.1 LAB L100.1900 150-450 K/mm3 Normal PLT 280 LAB L100.2000 6.2-12.0 fl Normal MPV 11.7 Performed By: #### L100.0500 #### [facility] [address] [place], [place], [address] COMPREHENSIVE METABOLIC Collected: 03/14/2018 Status: F Source: [place] 5:30 AM REPOSITORY TYPE CODE TESTS RESULT OUT OF RANGE REFERENCE UNITS LAB L501.0100 74-106 mg/dL High GLU 123 Result Comment: Fasting Glucose result from 100 to 125 mg/dL suggests IMPAIRED HOMEOSTASIS per A.D.A. criteria. Please note revised GLUCOSE reference range effective 2017. LAB L501.1000 7-18 mg/dL High BUN 24 LAB L501.1100 0.70-1.30 mg/dL High CREAT,SERUM 1.37 Result Comment: The validity of the calculated GFR AND GFRAA in patients over 70 years has not been determined. Clinical correlation is essential. LAB L501.1110 >60 mL/min Low EST GFR 55 Result Comment: Non- GFR Calc LAB L501.1115 >60 mL/min Normal EST GFR - AA 67 Result Comment: GFR Calc LAB L501.1255 ml/min Normal Estimated CRCL 48.92 LAB L501.1300 10-20 RATIO Normal BUN/CRE 17.5 LAB L501.1500 6.4-8. g/dL Normal 2 T PROT 6.8 LAB L501.1800 3.2-5. g/dL Normal 0 ALB 3.2 LAB L501.1950 2.2-4. g/dL Normal 2 GLOB 3.6 LAB L501.2000 0.9-2. RATIO Normal 4 A/G 0.9 LAB L501.2200 8.5-10 mg/dL Normal .1 CA 9.1 LAB L501.4100 15-37 U/L Normal AST 18 LAB L501.4305 45-117 U/L Normal ALK P 68 LAB L501.4405 16-61 U/L Normal ALT 21 LAB L501.4600 0.20-1 mg/dL Normal .00 T BILI 0.90 LAB L501.5300 136-14 mmol/L Normal 5 NA 139 LAB L501.5600 3.5-5. mmol/L Normal 1 K 4.1 LAB L501.5900 98-107 mmol/L Normal CL 102 LAB L501.6100 21.0-3 mmol/L Normal 2.0 CO2 29.0 LAB L501.6200 5-15 Normal GAP 8 Performed By: #### L500.4050, L500.4100, L501.9520 #### [facility] [address] [place], [place], [id number] LIPID PROFILE Collected: 03/14/2018 Status: F Source: [place] 5:30 AM REPOSITORY TYPE CODE TESTS RESULT OUT OF RANGE REFERENCE UNITS LAB L501.4900 200 mg/dL Normal CHOL 198 Result Comment: <200 mg/dL Desirable 200-240 mg/dL Borderline >240 mg/dL High Risk LAB L501.5000 mg/dL Normal TRIG 135 Result Comment: The drugs N-Acetylcysteine and Metamizole may falsely depress this assay. Serum Triglycerides Reference Interval Normal <150 mg/dL Borderline high 150 - 199 mg/dL High 200 - 499 mg/dL Very High > or = 500 mg/dL LAB L501.6400 mg/dL Normal HDL 57 Result Comment: The drugs N-Acetylcysteine and Metamizole may falsely depress this assay. Reference Range HDL <40 mg/dL Low HDL Cholesterol HDL >or= 60 mg/dL High HDL Cholesterol LAB L501.6500 0-130 mg/dL Normal LDL 114 LAB L501.6600 5-40 mg/dL Normal VLDL 27 Performed By: #### L500.4050, L500.4100, L501.9520 #### [facility] [address] [place], [place], [id number] THYROID STIM HORMONE Collected: 03/14/2018 Status: F Source: [place] (TSH) 5:30 AM REPOSITORY TYPE CODE TESTS RESULT OUT OF RANGE REFERENCE UNITS LAB L501.9520 0.358-3.74 uIU/mL Normal TSH 0.74 Performed By: #### L500.4050, L500.4100, L501.9520 #### [facility] [address] [place], [place], [address] BEDSIDE GLUCOSE Collected: 03/13/2018 Status: F Source: [place] 9:10 PM REPOSITORY TYPE CODE TESTS RESULT OUT OF RANGE REFERENCE UNITS LAB L501.080 70-110 mg/dL Normal BEDSIDE GLU 71 Result Comment: MANAGEMENT OF PATIENT CARE PER NURSING PROTOCOL Performed By: #### L501.080 #### [facility] Laboratory Point of Care [address] [place] [address] BEDSIDE GLUCOSE Collected: 03/13/2018 Status: F Source: [place] 4:40 PM REPOSITORY TYPE CODE TESTS RESULT OUT OF REFERENCE UNITS RANGE LAB L501.080 70-110 mg/dL High BEDSIDE GLU 135 Result Comment: MANAGEMENT OF PATIENT CARE PER NURSING PROTOCOL Performed By: #### L501.080 #### [facility] Point of Care [address] [place] [address] CONSULTATION Observed: 03/13/2018 Status: F Source: [place] 3:19 PM REPOSITORY [facility] Medical Records Department [address] [place] [address] Consultation 03/13/18 1448 MR#: [id number] Acct: [id number] Name: JHONNY GRIJALVA Rep #: [id number] : 1950 67 From: Bandar Villegas MD PCP: Tanisha Rios MD Status: ADM IN Location: [place] [address] Problem List (1) Abnormal cardiac enzyme level Status: Acute (2) Coronary artery disease Status: Chronic (3) S/P CABG (coronary artery bypass graft) Status: Chronic (4) Hypertensive urgency Status: Acute (5) HLD (hyperlipidemia) Status: Chronic (6) HTN (hypertension) Status: Chronic (7) DM2 (diabetes mellitus, type 2) Status: Chronic (8) HCAP (healthcare-associated pneumonia) Status: Acute (9) Abdominal discomfort Status: Acute Reason for Consult Date of Consultation: 03/13/18 History of Present Illness: The patient is a 67 year old male with a past cardiovascular history which is included hyperlipidemia, hypertension, diabetes mellitus, CAD, status post CABG, who presents for evaluation of chest/abdominal discomfort with subsequent findings of abnormal cardiac enzymes notation of a hypertensive urgency. The patient has been following with his primary test engine mechanic at [facility] in [place], [place]. However he has been evaluated at [facility] on 02/17/2018 by Willis Frey MD of the [facility] for his cardiovascular condition. At that time he underwent evaluation with a transthoracic echocardiogram that demonstrated the left ventricle to have regional wall motion abnormalities with an LVEF of 45-50% with moderate left atrial enlargement, trivial MR, mild TR, and an estimated RV systolic pressure of 45 mmHg. He also underwent diagnostic cardiac catheterization which demonstrated the left ventricle to have an LVEF of 55%, the left main coronary artery had 40% stenosis, the LAD was occluded, the LCx had mid 50% stenosis, the RCA was occluded, a FLANNERY to the first diagonal branch was patent, and SVG graft to the left PDA was patent. Continued medical management. He states he has been in contact with his primary test engine mechanic since that time including yesterday based upon his ongoing symptoms concerns and recommended increase of his nitrate therapy. However he has been noticing abdominal discomfort which he states radiates up to his lower chest area. His family states he intermittently complains of discomfort in his shoulder and left upper extremity area. He has denied any obvious evidence of orthopnea or PND or worsening peripheral pitting edema at this time. There is been no near syncope or syncope. He notes that his blood pressure has been difficult to control. It has been elevated. His family states that when his blood pressure is elevated he appears to be more symptomatic. He presented back to [facility] for further evaluation. He was noted to have a markedly elevated systolic blood pressure of 212 mmHg with a diastolic blood pressure of 104 mmHg. He was placed in the PCU for further evaluation. His cardiac enzymes have been indeterminant. His ECG has demonstrated sinus rhythm with no acute ECG changes. A chest x-ray was performed which raised concerns of a right lower lobe infiltrate/pneumonia. He was placed on medical management which included IV antibiotic therapy. [] Past Medical History Allergies/Adverse Reactions: Allergies hydrochlorothiazide Allergy (Verified 02/13/18 10:13) Unknown Penicillins [PCN] Allergy (Verified 02/13/18 10:13) Swelling pioglitazone [From Actos] Allergy (Verified 02/13/18 10:13) Unknown oxycodone [From OxyIR] Adverse Reaction (Verified 02/15/18 23:25) Other pravastatin Adverse Reaction (Verified 02/13/18 10:13) Pain in joints Home Medications: Ambulatory Orders Medication Instructions Recorded Aspirin [Aspirin EC] 81 mg PO DAILY 03/15/17 Past Medical History (Chronic Problems): Chronic Problems Coronary artery disease (Chronic) S/P CABG (coronary artery bypass graft) (Chronic) HLD (hyperlipidemia) (Chronic) HTN (hypertension) (Chronic) 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 Denies: Shortness of Breath, Orthopnea, PND, Peripheral Edema, Palpitations, Lightheadedness, Dizziness, Near Syncope, Syncope Respiratory: Denies: Cough, Sputum Production, Hemoptysis Gastrointestinal: Reports: Abdominal Discomfort. Denies: Hematemesis, Hematochezia, Melena Genitourinary: Denies: Dysuria, Hematuria Skin: Denies: Rash Subjectve: This is a 67-year-old white male who appears to be resting comfortably at the moment in no acute distress. Objective: Vital Signs Temp Pulse Resp BP Pulse Ox 96.7 F L 87 16 165/95 H 97 03/13/18 12:30 03/13/18 12:30 03/13/18 12:30 03/13/18 12:30 03/13/18 12:30 Oxygen Flow Rate (L/min) 2 Oxygen Delivery Method Room Air Weight: 241 lb 10.026 oz Body Mass Index (BMI) 37.8 Finger Stick Blood Glucose 272 Intake and Output for Last 24 Hours Intake Total 927 / 927 Output Total 700 / 700 Balance 227 / 227 General: Awake, Alert, Oriented x 3, Cooperative, No Acute Distress HEENT: Atraumatic, Normocephalic, PERRL, EOMI, Sclera Non Icteric Oral: Moist Mucosa Neck: Supple, Good ROM, No JVD Lungs: Clear to auscultation Cardiovascular: Regular Rhythm, Normal S1, Normal S2 Abdomen: Bowel Sounds Present, Soft, Non Tender Extremities: No Cyanosis, No Clubbing, No edema Neurological: No Focal Motor or Sensory Deficit Psych/Mental Status: Appropriate, Normal Affect 03/13/18 04:32: WBC 6.8, RBC 3.95 L, Hgb 11.5 L, Hct 36.0 L, MCV 91.1, MCH 29.1, MCHC 31.9 L, RDW 13.2, RDW Differential 44.1 H, Plt Count 320, MPV 11.3, Immature Gran % (Auto) 0.100, Neut % (Auto) 56.5, Lymph % (Auto) 31.0, [place] % (Auto) 4.6, Eos % (Auto) 7.1 H, Baso % (Auto) 0.7, Absolute Neuts (auto) 3.8, Total Counted Not Reportable 03/13/18 04:32: Sodium 140, Potassium 4.4, Chloride 102, Carbon Dioxide 28.0, Anion Gap 10, BUN 18, Creatinine 1.08, Est GFR (MDRD) Af Amer 88, Est GFR (MDRD) Non-Af 72, BUN/Creatinine Ratio 16.7, Glucose 164 H, Calcium 9.3, Troponin I < 0.015 03/13/18 07:24: Troponin I 0.048 H 03/13/18 10:20: Troponin I 0.093 H Rhythm: Sinus rhythm EKG: Sinus rhythm ECHO: As noted above Cardiac Cath: As noted above CXR: As noted above Assessment/Plan 1. Abnormal cardiac enzymes The patient does have abnormal cardiac enzymes. They appear to be indeterminate. The etiology may be secondary to the patient's underlying hypertensive superimposed on his underlying known CAD process as opposed to a new primary acute coronary syndrome event. The patient was recently evaluated both noninvasively and invasively with the results as noted above. He did not require additional PCI therapy. At the present time would be recommended to the patient continue to be monitored. He should continue medical management with an attempt to bring his blood pressure under better control. He should continue further evaluation care of his other ongoing issues with respect to concerns of possible pneumonia as well as consideration for further evaluation of his abdominal discomfort for any obvious peripheral arterial occlusive disease that has not been previously diagnosed. This may include ultrasound and/or CT scan studies of his abdominal aorta and/or peripheral vasculature. 2. CAD status post CABG Has undergone recent evaluation as noted above with respect to his underlying CAD and graft status. He was recommended for continued medical management. Thus an attempt will be made to optimize his medications based upon his disease process, associated symptoms, other objective findings, etc. It was not felt at the moment the patient needed to return to the cardiac catheterization laboratory. 3. Hypertensive urgency The patient has had recurrent hypertensive urgency with markedly elevated systolic and diastolic blood pressures. Again this may be a contributing factor to his abnormal cardiac enzymes, etc. He will continue medical management with attempts to bring his blood pressure under better control. 4. Hyperlipidemia The patient will continue lipid-lowering therapy. 5. Hypertension The patient does have a history of essential hypertension. Again his blood pressures have been elevated. He will continue medical management. 6. Diabetes mellitus The patient will continue care under the direction of internal medicine. 7. Pneumonia The patient has been placed on antibiotic therapy. 8. Abdominal discomfort It is unclear whether the patient's abdominal discomfort is truly related to his underlying cardiovascular disease or a separate gastrointestinal or abdominal etiology such as peripheral arterial occlusive disease. It would not be unreasonable noting the patient's cardiovascular/peripheral vascular risk factors for him to be evaluated with respect to his abdominal aorta with either ultrasound studies and/or CT scan studies as deemed appropriate if this is not already been accomplished. Comment: The above was discussed and reviewed with the patient and his multiple family members present. This note was generated using a voice recognition system and there may be incorrect words, spelling or punctuation that were not noted when reviewing the office note prior to saving. 03/13/18 1519 <Electronically signed by Bandar Villegas MD> Date Bandar Villegas MD Cosigner Signature (if applicable): Date CC: Willis Frey MD; JHONNY CAMPUZANO; Bandar Villegas MD; Tanisha Rios MD Signed BEDSIDE GLUCOSE Collected: 03/13/2018 Status: F Source: [place] 12:37 PM REPOSITORY TYPE CODE TESTS RESULT OUT OF REFERENCE UNITS RANGE LAB L501.080 70-110 mg/dL High BEDSIDE GLU 205 Result Comment: MANAGEMENT OF PATIENT CARE PER NURSING PROTOCOL Performed By: #### L501.080 #### [facility] Point of Care [address] [place] [address] TROPONIN-I Collected: 03/13/2018 Status: F Source: [place] 10:20 AM REPOSITORY Order Comment: 'TROP' Serial specimen #1, #2 or #3: 3 TYPE CODE TESTS RESULT OUT OF RANGE REFERENCE UNITS LAB L501.4010 <0.045 ng/mL High 0.093 TROPONIN-I Result Comment: TROPONIN-I EXPECTED VALUES <0.045 Negative 0.045 - 0.590 Consistent with Cardiac Damage > OR = 0.600 Critical Value Not every elevated troponin is indicative of VT. These values should be used with clinical judgement in examining the patient's clinical picture for diagnosis. To establish a diagnosis of VT versus myocardial injury, there must be a demonstrated rise and/or fall in the troponin values, in addition to ischemic symptoms, EKG changes, new regional wall motion abnormality, and/or angiographical evidence. PLEASE NOTE: REFERENCE RANGES EDITED 17 Performed By: #### L501.4010 #### [facility] [address] [place], [place], [id number] TROPONIN-I Collected: 03/13/2018 Status: F Source: [place] 7:24 AM REPOSITORY Order Comment: 'TROP' Serial specimen #1, #2 or #3: 2 TYPE CODE TESTS RESULT OUT OF RANGE REFERENCE UNITS LAB L501.4010 <0.045 ng/mL High 0.048 TROPONIN-I Result Comment: TROPONIN-I EXPECTED VALUES <0.045 Negative 0.045 - 0.590 Consistent with Cardiac Damage > OR = 0.600 Critical Value Not every elevated troponin is indicative of VT. These values should be used with clinical judgement in examining the patient's clinical picture for diagnosis. To establish a diagnosis of VT versus myocardial injury, there must be a demonstrated rise and/or fall in the troponin values, in addition to ischemic symptoms, EKG changes, new regional wall motion abnormality, and/or angiographical evidence. PLEASE NOTE: REFERENCE RANGES EDITED 17 Performed By: #### L501.4010 #### [facility] [address] [place], [place], [id number] HISTORY AND PHYSICAL Observed: 03/13/2018 Status: F Source: [place] EXAM 6:14 AM REPOSITORY [facility] Medical Records Department [address] [place] [address] History and Physical 03/13/18 0604 MR#: [id number] Acct: [id number] Name: JHONNY GRIJALVA Rep #: [id number] : 1950 67 From: Bandar Farah MD PCP: Tanisha Rios MD Status: ADM CHERELLE Y Location: [place] [address] Problem List (1) Coronary artery disease Status: Chronic (2) Hypertensive urgency Status: Acute (3) Chest pain Status: Acute Qualifiers: Chest pain type: unspecified Qualified Code(s): R07.9 - Chest pain, unspecified (4) 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 The patient had a knee revision procedure last month and subsequently had a non-STEMI heart catheterization was done mid February and found no lesions amenable to stenting. He has had two CABG procedures one 3 years ago and another ten years before that one. CXR reveals a right lower lobe infiltrate. He is hypertensive as well. Currently he is chest pain free. Recently his Imdur dosage at home is being adjusted. He also complains of some redness over the incision of left knee , but he says that looks better today than it has. He will be admitted to PCU and treated for HCAP and hypertension, cardiac markers will be cycled and cardiology consulted if Troponins become detectable. Past Medical History Past Medical History (Chronic Problems): Chronic Problems Coronary artery disease (Chronic) Status post revision of total replacement of left knee (Chronic) DM2 (diabetes mellitus, type 2) (Chronic) Allergies hydrochlorothiazide Allergy (Verified 02/13/18 10:13) Unknown Penicillins [PCN] Allergy (Verified 02/13/18 10:13) Swelling pioglitazone [From Actos] Allergy (Verified 02/13/18 10:13) Unknown oxycodone [From OxyIR] Adverse Reaction (Verified 02/15/18 23:25) Other pravastatin Adverse Reaction (Verified 02/13/18 10:13) Pain in joints Home Medications: Ambulatory Orders Medication Instructions Recorded Aspirin [Aspirin EC] 81 mg PO DAILY 03/15/17 Smoking Status: Never smoker - *Family History Maternal History Items: No pertinent history Review of Systems Constitutional: Denies: Chills, Fever, Weight Change HEENT: Denies: Head Aches, Sinus Congestion, Sinus Drainage Cardiovascular: Reports: Chest Pain. Denies: Palpitations Respiratory: Reports: Shortness of breath at rest. Denies: Cough, Sputum production Gastrointestinal: Denies: Abdominal Pain, Nausea, Vomiting Genitourinary: Denies: Dysuria Musculoskeletal: Reports: Joint Pain, Joint Tenderness Skin: Denies: Rash, Wounds Neurological: Denies: Numbness, Tingling, Focal weakness Psychiatric: Denies: Anxiety, Depression, Homicidal Ideations, Suicidal Ideations Hematologic/ Lymphatic: Denies: Easy Bruising, Easy Bleeding VTE Information - Inpt Only VTE Present on Admission: No VTE Mechan Device Prophylaxis: None VTE Pharm Prophylaxis ordered?: Yes Patient Problems: Active and Suspected Problems HCAP (healthcare-associated pneumonia) (Acute) - Physical Exam General: Alert, Oriented x3, Cooperative HEENT: Atraumatic, Normocephalic Neck: Supple Lungs: Clear to auscultation, Normal air movement, No rhonchi, No wheeze, No rales Cardiovascular: Regular rate, Regular Rhythm, Normal S1, Normal S2, No murmurs Abdomen: Bowel Sounds Present, Soft, Non Tender, Obese Extremities: No edema, Capillary Refill Less than 3 Seconds Skin: No rashes, - - erythema and warmth on left knee incision Musculoskeletal: No Tenderness to Palpation of Joints or Extremities Neurological: Neuro grossly intact Psych/Mental Status: Normal Affect, Appropriate Vital Signs Temp Pulse Resp BP Pulse Ox 97.6 F L 66 17 192/108 H 95 03/13/18 04:20 03/13/18 05:16 03/13/18 04:20 03/13/18 05:16 03/13/18 04:20 Oxygen Flow Rate (L/min) 2 Oxygen Delivery Method Nasal Cannula Weight: 246 lb 4.101 oz Body Mass Index (BMI) 38.5 Finger Stick Blood Glucose 272 Laboratory Tests Past 24 Hrs WBC 6.8 RBC 3.95 L Hgb 11.5 L Hct 36.0 L MCV 91.1 MCH 29.1 MCHC 31.9 L RDW 13.2 RDW Differential 44.1 H Assessment/Plan All Active Problems Non-STEMI (non-ST elevated myocardial infarction) (Acute) HCAP (healthcare-associated pneumonia) (Acute) Hypertensive urgency (Acute) Chest pain (Acute) Acute blood loss anemia (Acute) Plan - admit to PCU - continue antibiotics for HCAP and oxygen as needed - duoneb inh q 4hrs prn - cycle cardiac enzymes - hydralazine prn for HTN - continue routine home medications - LMWH for DVT prophylaxis - morphine, oxygen, nitro per routine - plan to consult cardiology if troponin converts Code Visit Inpatient E AND M: [id number] Init Hosp L3 03/13/18 0614 <Electronically signed by Bandar Farah MD> Date Bandar Farah MD Cosigner Signature: Date (if applicable) CC: Bandar Farah MD; Tanisha Rios MD Signed EMERGENCY DEPARTMENT Observed: 03/13/2018 Status: F Source: [place] SUMMARY 5:48 AM REPOSITORY [facility] Medical Records Department [address] [place] [address] Emergency Department Summary 03/13/18 0545 MR#: [id number] Acct: [id number] Name: JHONNY GRIJALVA Rep #: [id number] : 1950 67 From: Charlie Golden MD PCP: Tanisha Rios MD Status: REG ER - ER Visit Summary Date of Service: 03/13/18 Chief Complaint: Chest pain History of Present Illness: The patient is a 67 M who presents with chest pain. He does have a history of coronary artery disease, prior CABG x2. He recently had an an STEMI after a knee replacement. He had a cardiac catheterization which showed patent grafts and areas of 50% stenosis but nothing that was amenable to stenting. Over the past 3 days especially in the mornings he has been having increased lower chest heaviness. His test engine mechanic increased his Imdur yesterday. He states that yesterday was a worse a day and he had more episodes of pain shortness of breath than before. He also began to develop some cold symptoms with congestion and cough. No fevers. Physical Examination: Blood pressure 212/104 vitals otherwise unremarkable Moist mucous membranes Heart regular rate and rhythm Lungs are clear Abdomen soft Alert Test Results: EKG shows normal sinus rhythm at a rate of 74 with a right bundle branch block. Chest x-ray shows right lower lobe opacity. Labs essentially unremarkable with a negative troponin. Emergency Department Course and Treatment: Patient took aspirin prior to arrival. He was given sublingual nitroglycerin here with really no change in symptoms. He remains significantly hypertensive and was given IV hydralazine. His chest x-ray was read as pneumonia versus atelectasis. Given that he does have infectious symptoms we will treat for healthcare associated pneumonia. He was given Azactam and vancomycin. I still feel with his symptoms he should also have a cardiac rule out with repeat EKG and troponins. Patient to be discussed with the hospitalist and admitted. Treatment Plan: [] Disposition: Admit Impression: Chest pain Healthcare associated pneumonia Uncontrolled hypertension This note was generated with [employer] dictation software. It may contain incorrect words, spelling, and punctuation that were not noted in review of the chart prior to signing ED Disposition - Plan for ED Patient: Chief Complaint: Chest Pain Referrals: Tanisha Rios MD [Primary Care Provider] - What to do if you have Problems For any increased pain, shortness of breath, bleeding, nausea or vomiting, chest pain, or any unexpected problems, contact your Primary Care Provider. Call [facility] ([phone]) or report to the closest Emergency Room. Call 911 if necessary. 03/13/18 0548 <Electronically signed by Charlie Golden MD> Date Charlie Golden MD Cosigner Signature (If Indicated): Date CC: Tanisha Rios MD CHEST 1 VIEW Observed: 03/13/2018 Status: F Source: [place] (PORTABLE) 4:41 AM REPOSITORY [facility] Imaging Services [address] [place] [address] Chest 1 View (Portable) MR#: [id number] Acct: [id number] Name: JHONNY GRIJALVA Rep #: [id number] : 1950 M 67 From: Juan Manuel Castellanos MD PCP: Tanisha Rios MD Status: REG ER Study: Chest 1 View (Portable) Date of Exam: 03/13/18 Exam# [id number] Ordering Dr: Charlie Golden MD STUDY: X-RAY CHEST REASON FOR EXAM: Male, 67 years old. Chest pain TECHNIQUE: 1 view COMPARISON: February 15, 2018 FINDINGS: There is a right lower lobe opacity which may represent a focus of pneumonia or atelectatic change. The left lung is clear. The heart is at the upper limits of normal in size. Median sternotomy wires are in Normal visualized thoracic spine. Normal visualized ribs, clavicles, and shoulders. There is no demonstrated abnormality of the visualized soft tissue structures of the upper abdomen. RAD/Chest 1 View (Portable) IMPRESSION: A right lower lobe opacity representing either a focus of pneumonia or atelectatic changes Electronically Signed: Juan Manuel Castellanos MD at 5:23 EST Tel , Service support , CC: Charlie Golden MD; Tanisha Rios MD Human Resource Manager: Signed BASIC METABOLIC Collected: 03/13/2018 Status: F Source: [place] PROFILE (BMP) 4:32 AM REPOSITORY TYPE CODE TESTS RESULT OUT OF RANGE REFERENCE UNITS LAB L501.0100 74-106 mg/dL High GLU 164 Result Comment: Fasting Glucose result greater than or equal to 126 mg/dL suggests DIABETES MELLITUS per A.D.A. criteria. Please note revised GLUCOSE reference range effective 2017. LAB L501.1000 7-18 mg/dL Normal BUN 18 LAB L501.1100 0.70-1.30 mg/dL Normal CREAT,SERUM 1.08 Result Comment: The validity of the calculated GFR AND GFRAA in patients over 70 years has not been determined. Clinical correlation is essential. LAB L501.1110 >60 mL/min Normal EST GFR 72 Result Comment: Non- GFR Calc LAB L501.1115 >60 mL/min Normal EST GFR - AA 88 Result Comment: GFR Calc LAB L501.1255 ml/min Normal Estimated CRCL 62.05 LAB L501.1300 10-20 RATIO Normal BUN/CRE 16.7 LAB L501.2200 8.5-10 mg/dL Normal .1 CA 9.3 LAB L501.5300 136-14 mmol/L Normal 5 NA 140 LAB L501.5600 3.5-5. mmol/L Normal 1 K 4.4 LAB L501.5900 98-107 mmol/L Normal CL 102 LAB L501.6100 21.0-3 mmol/L Normal 2.0 CO2 28.0 LAB L501.6200 5-15 Normal GAP 10 Performed By: #### L500.2500, L501.4010 #### [facility] [address] [facility]. [place], [place], [address] TROPONIN-I Collected: 03/13/2018 Status: F Source: [place] 4:32 AM REPOSITORY TYPE CODE TESTS RESULT OUT OF RANGE REFERENCE UNITS LAB L501.4010 <0.045 ng/mL Normal < 0.015 TROPONIN-I Result Comment: TROPONIN-I EXPECTED VALUES <0.045 Negative 0.045 - 0.590 Consistent with Cardiac Damage > OR = 0.600 Critical Value Not every elevated troponin is indicative of VT. These values should be used with clinical judgement in examining the patient's clinical picture for diagnosis. To establish a diagnosis of VT versus myocardial injury, there must be a demonstrated rise and/or fall in the troponin values, in addition to ischemic symptoms, EKG changes, new regional wall motion abnormality, and/or angiographical evidence. PLEASE NOTE: REFERENCE RANGES EDITED 17 Performed By: #### L500.2500, L501.4010 #### [facility] [address] [place], [address] CBC W/DIFF, AUTOMATED Collected: 03/13/2018 Status: F Source: [place] 4:32 AM REPOSITORY TYPE CODE TESTS RESULT OUT OF RANGE REFERENCE UNITS LAB L100.1000 4.4-11.0 K/mm3 Normal WBC 6.8 LAB L100.1200 4.6-6.2 M/mm3 Low RBC 3.95 LAB L100.1300 13.0-16.5 g/dl Low HGB 11.5 LAB L100.1400 40-54 % Low HCT 36.0 LAB L100.1500 80-94 fL Normal MCV 91.1 LAB L100.1600 27.0-32.0 pg Normal MCH 29.1 LAB L100.1700 32-36 g/gl Low MCHC 31.9 LAB L100.1810 11.6-14.6 % Normal RDW CV 13.2 LAB L100.1820 35.1-43.9 fl High RDW SD 44.1 LAB L100.1900 150-450 K/mm3 Normal PLT 320 LAB L100.2000 6.2-12.0 fl Normal MPV 11.3 LAB L100.2100 47-70 % Normal NEUT% 56.5 LAB L100.2200 19-41 % Normal LY% 31.0 LAB L100.2300 0-10 % Normal MONO% 4.6 LAB L100.2400 0-5 % High EO% 7.1 LAB L100.2500 0-1 % Normal BASO% 0.7 LAB L100.2550 0.0-0.9 % Normal IM GRAN % 0.100 Result Comment: IG% - Immature Granulocytes (promyelocytes, myelocytes and metamyelocytes) > 1% indicates that a LEFT SHIFT is Present. LAB L100.2620 2.0-7.7 X10 3/uL Normal Absolute Neut 3.8 LAB L100.2720 0.83-4.51 X10 3/ul Normal Absolute Lymph 2.10 Performed By: #### L100.0100 #### [facility] [address] [place], [address] 12 LEAD ELECTROCARDIOGRAM Observed: 03/09/2018 Status: F Source: [place] 9:10 AM [facility] REPOSITORY [facility] Cardiovascular Services [address] [place] [address] 12 Lead EKG 02/20/18 0537 MR#: [id number] Acct: [id number] Name: JHONNY GRIJALVA Rep #: [id number] : 1950 67 From: Colt Welch MD Attending Dr: Frederick Maldonado DO Status: DIS IN Ordering Dr: Willis Frey MD Date: 02/20/18 Location: [facility] Sex: M C Admitted: 02/13/18 Test Reason : AM EKG Blood Pressure : / mmHG Vent. Rate : 071 BPM Atrial Rate : 071 BPM P-R Int : 144 ms QRS Dur : 102 ms QT Int : 412 ms P-R-T Axes : 020 011 056 degrees QTc Int : 447 ms Normal sinus rhythm Incomplete right bundle branch block Borderline ECG When compared with ECG of 17-FEB-2018 04:52, MANUAL COMPARISON REQUIRED, DATA IS UNCONFIRMED Confirmed by YURI STODDARD, COLT ([id number]), fashion editor ANNA GLASGOW ([id number]) on 02/26/2018 2:25:10 PM Referred By: Steph Borrego Confirmed By:COLT WELCH MD 02/26/18 1425 Date Colt Welch MD CC: Willis Frey MD; Frederick Maldonado DO; Steph Borrego MD; Tanisha Rios MD Signed CBC Collected: 03/07/2018 Status: F Source: [facility] 11:42 AM HOSPITAL REPOSITORY TYPE CODE TESTS RESULT OUT OF RANGE REFERENCE UNITS LAB L200.0100 4.5-10.0 x10(3) Normal WBC 6.6 LAB L200.0200 4.80-5.50 x10(6) Low RBC 3.79 LAB L200.0210 14.0-17.2 g/dL Low HGB 11.4 LAB L200.0220 42.0-51.0 % Low HCT 34.1 LAB L200.0230 80.0-94.0 fl Normal MCV 90.0 LAB L200.0240 28.8-32.2 pg Normal MCH 30.2 LAB L200.0250 33.0-36.0 g/dL Normal MCHC 33.5 LAB L200.0260 12.7-15.3 % Normal RDW 13.7 LAB L200.0270 150-450 X10(3) High PLT 455 LAB L200.0290 7.4-9.2 fl Normal MPV 9.2 LAB L200.0300 45.0-73.0 % Normal NEUT% 46.4 LAB L200.0310 16.0-48.0 % Normal LYMPH% 40.5 LAB L200.0320 4.3-11.2 % Normal MONO% 7.2 LAB L200.0330 0.5-4.9 % High EOS% 5.0 LAB L200.0340 0.0-1.0 % Normal BASO% 0.9 LAB L200.0350 1.40-6.50 x10(3) Normal NEUT# 3.00 LAB L200.0360 1.00-3.50 x10(3) Normal LYMPH# 2.60 LAB L200.0370 0.30-0.80 x10(3) Normal MONO# 0.50 LAB L200.0380 0.00-0.54 x10(3) Normal EOS# 0.30 LAB L200.0390 0.00-0.10 x10(3) Normal BASO# 0.10 Performed By: #### L200.0010 #### [facility] [address] [place] [address] BMP Collected: 03/07/2018 Status: F Source: [facility] 11:41 AM HOSPITAL REPOSITORY TYPE CODE TESTS RESULT OUT OF RANGE REFERENCE UNITS LAB L100.0060 82-115 mg/dL High GLUCOSE 133 LAB L100.0110 8-23 mg/dL BUN Normal 16 LAB L100.0131 0.70-1.20 mg/dL Normal CREATININE 0.83 LAB L100.0140 8.8-10.2 mg/dL CALCIUM Normal 9.5 LAB L100.0150 135-145 mmol/L SODIUM Normal 140 LAB L100.0160 3.5-5.0 mmol/L Normal POTASSIUM 3.8 LAB L100.0170 98-107 mmol/L CHLORIDE Normal 101 LAB L100.0180 22-29 mmol/L TCO2 Normal 25 LAB L100.0185 15-22 mmol/L ANION Normal GAP 17.8 LAB L100.0274 eGFR Normal nonAFR Gene > 60 ml/Min/1.73m 2 LAB L100.0275 eGFR if Normal AFR GENE > 60 ml/min/1.73m 2 Result Comment: eGFR >= 60 Indicates normal kidney function. * eGFR IS AN ESTIMATE * (AFR GENE = ) (non-AFR AM = NON-) MDRD calculation used in the eGFR should not be used to dose medications. For further limitations of the eGFR please refer to the Physician Website or the National Kidney Disease Education Program website (www.nkdep.nih.gov). Performed By: #### L100.0010 #### [facility] [address] [place] [address] DISCHARGE SUMMARY Observed: 02/22/2018 Status: F Source: [place] 1:07 PM REPOSITORY [facility] Medical Records Department [address] [place] [address] Discharge Summary 02/22/18 1248 MR#: [id number] Acct: [id number] Name: JHONNY GRIJALVA Rep #: [id number] : 1950 67 From: Cesar Simpson PA-C PCP: Tanisha Rios MD Status: DIS IN Y Location: [facility] [id number] Discharge Date and Diagnosis Date of Admission: 02/13/18 Date of Discharge: 02/22/18 - Primary Discharge Diagnosis left revision total knee arthroplasty Non-STEMI - Secondary Discharge Diagnosis Chronic Problems DM2 (diabetes mellitus, type 2) (Chronic) Coronary artery disease - stable Anxiety and depression Dementia Hypertension Hyperlipidemia Hospital Course and Treatment Primary Medicine 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 After discussion with Dr. Steph Borrego, the patient opted to proceed with a revision left total knee arthroplasty. The patient underwent the above-stated procedure on February 13, 2018. Patient did receive perioperative antibiotics. Intraoperatively was uneventful. For complete details please see dictated operative note The patient was placed in knee immobilizer on the left knee. Patient remained stable in recovery. Patient was admitted to third floor at [facility]. Patient's pain was managed with the use of IV and p.o. pain medications. On postoperative day #4 patient had hypertensive urgency episode with a blood pressure of 199/106. Patient began having some chest tightness. Patient had normal EKG but troponin levels were elevated. Patient sustained a myocardial infarction. Cardiology was consult. Patient does have a history of 2 previous bypass surgeries. Heart catheterization was done by Dr. Frey on February 22, 2018. Patient participated in physical therapy and was weightbearing as tolerated. Patient was discharged on postoperative day #9. Patient was given medications stated below. Patient will continue with aspirin and Plavix for DVT prophylaxis at this time. He is currently on Tylenol and tramadol for pain control. Overall patient's pain and the knee was well controlled. Patient does continue to have swelling in the left knee. He will continue with ice and elevation. Patient will follow up with orthopedics per postop instructions for reassessment. Patient will undergo home health physical therapy. Patient will follow up with his primary care physician and test engine mechanic. - Physical Exam Vital Signs Temp Pulse Resp BP Pulse Ox 98.4 F 65 18 154/72 H 93 02/20/18 12:40 02/20/18 15:05 02/20/18 12:40 02/20/18 12:40 02/20/18 12:40 Oxygen Delivery Method Room Air Weight: 112.49 kg Body Mass Index (BMI) 38.8 Finger Stick Blood Glucose 272 Intake and Output for Last 24 Hours Intake Total 540 / 540 Output Total 300 / 300 Balance 240 / 240 Discharge Diet: No Restrictions Discharge Activity: May Not Drive May shower in (days): 1 - turn dressing away from water Ice area for (Minutes): 20 - every hour while awake. Weight Bearing Status: Weight bearing as tolerated Keep extremity elevated above heart level: Operative Extremity Additional Activity Instructions:: Wear elastic stockings for 2 weeks after your surgery. Call your doctor if your incision/area has: Continuous Slow Oozing, Sudden Increased Bleeding, Increased Pain/ Swelling, Increased Redness, Foul Smelling Discharge Call your doctor if you observe: Fever of 101 or Higher, Coldness, Increased Pain, Numbness or Tingling, Change in Color, Calf discomfort, Uncontrolled pain Remove Dressing in (days):: 2 - Remove Dressing on 02/20/18, will use dry dressing without tape at that time Home Medications: Medications to take at Discharge Aspirin [Aspirin EC] 81 mg PO DAILY 03/15/17 Bupropion HCl [Bupropion HCl ER] 100 mg PO LUNCH 03/15/17 Cilostazol 50 mg PO BID 03/15/17 Fluoxetine HCl [Prozac] 20 mg PO TID 03/15/17 Gabapentin [Neurontin] 300 mg PO TID 03/15/17 Insulin Human 70/30 [Novolog Mix 70-30 Flexpen Syrn] 26 units SC DAILYCM 03/15/17 Insulin Human 70/30 [Novolog Mix 70-30 Flexpen Syrn] 30 units SC DINNER 03/15/17 Metoprolol Succinate [Toprol Xl] 12.5 mg PO QHS 03/15/17 Multivitamin [Multiple Vitamins] 1 each PO DAILY 03/15/17 buPROPion XL [Wellbutrin Xl] 300 mg PO DAILY 03/15/17 Isosorbide Mononitrate [Imdur] 90 mg PO DAILY 01/24/18 Quetiapine Fumarate [Seroquel] 25 mg PO DAILY 01/24/18 Acetaminophen [Tylenol Extra Strength] 500 mg PO Q6H PRN PRN #1 tablet 02/20/18 Clopidogrel Bisulfate [Plavix] 75 mg PO DAILY #30 tablet 02/20/18 Donepezil HCl [Aricept] 10 mg PO QHS #30 tablet 02/20/18 Gabapentin [Neurontin] 300 mg PO TID capsule 02/20/18 Gemfibrozil [Lopid] 600 mg PO BIDAC tablet 02/20/18 Lisinopril [Zestril] 40 mg PO DAILY #30 tablet 02/20/18 traMADol [Ultram (G)] 50 mg PO Q6H PRN PRN 7 Days #30 tablet 02/20/18 Following Prescrptions Were Given to Patient: Acetaminophen [Tylenol Extra Strength] 500 mg PO Q6H PRN PRN #1 tablet PRN Reason: Pain traMADol [Ultram (G)] 50 mg PO Q6H PRN PRN 7 Days #30 tablet PRN Reason: Pain Clopidogrel Bisulfate [Plavix] 75 mg PO DAILY #30 tablet Donepezil HCl [Aricept] 10 mg PO QHS #30 tablet Lisinopril [Zestril] 40 mg PO DAILY #30 tablet Primary Care Physician: Tanisha Rios MD [Primary Care Provider] - Please Follow Up With: Cesar Simpson PA-C When: 02/26/18 @ 10:00 am Please Follow Up With: Home Health Physical Therapy When: will need to be set up prior to discharge Additional Instructions: Patient will follow up per post-op instructions Pain Control: Take Extra Strength Tylenol 500 mg 2 tablets every 8 hours for primary pain control. Then use Tramadol 50 mg 1-2 tablets as needed for breakthrough pain. Medical Necessity - Tobacco Use Smoking Status: Never smoker Meaningful Use Info Meaningful Use Diagnoses (Choose all that apply): None applicable 02/22/18 1307 <Electronically signed by Cesar Simpson PA-C> Date Cesar Simpson PA-C Cosigner Signature (if applicable): Date CC: Cesar MUNOZ; Tanisha Rios MD Signed 12 LEAD ELECTROCARDIOGRAM Observed: 02/21/2018 Status: F Source: [place] 11:37 AM REPOSITORY [facility] Cardiovascular Services [address] [place] [address] 12 Lead EKG 02/17/18 0452 MR#: [id number] Acct: [id number] Name: JHONNY GRIJALVA Rep #: [id number] : 1950 67 From: Colt Welch MD Attending Dr: Frederick Maldonado DO Status: DIS IN Ordering Dr: Ean Mayfield MD Date: 02/17/18 Location: [facility] Sex: M C Admitted: 02/13/18 Test Reason : PRE OP Blood Pressure : / mmHG Vent. Rate : 068 BPM Atrial Rate : 068 BPM P-R Int : 144 ms QRS Dur : 112 ms QT Int : 438 ms P-R-T Axes : 040 040 076 degrees QTc Int : 465 ms Normal sinus rhythm Nonspecific T wave abnormality Prolonged QT Abnormal ECG No previous ECGs available Confirmed by COLT WELCH MD ([id number]), fashion editor ANNA GLASGOW ([id number]) on 02/21/2018 11:36:59 AM Referred By: Steph Borrego Confirmed By:COLT WELCH MD 02/21/18 1137 Date Colt Welch MD CC: Frederick Maldonado DO; Ean Mayfield MD; Steph Borrego MD; Tanisha Rios MD Signed DISCHARGE INSTRUCTION Observed: 02/20/2018 Status: F Source: [place] 4:06 PM REPOSITORY [facility] Medical Records Department [address] [place] [id number] Instructions for Home/Discharge Instructions 02/20/18 1558 MR#: [id number] Acct: [id number] Name: JHONNY GRIJALVA Rep #: [id number] : 1950 67 From: Frederick Maldonado DO PCP: Tanisha Rios MD Status: ADM IN - Discharge Diagnoses Current Active Problems: Current Active and Chronic Problems Non-STEMI (non-ST elevated myocardial infarction) (Acute) Coronary artery disease (Acute) You will use the following diet at home:: Calorie/Carbohydrate Controlled (specify 1200, 1400, etc) - 1800 ADA Your food should be the consistency of: Regular Your liquids should be the consistency of: Regular/Thin Discharge Activity: May Not Drive May shower in (days): 1 - turn dressing away from water Ice area for (Minutes): 20 - every hour while awake. Weight Bearing Status: Weight bearing as tolerated Keep extremity elevated above heart level: Operative Extremity Additional Activity Instructions:: Wear elastic stockings for 2 weeks after your surgery. Call your doctor if your incision/area has: Continuous Slow Oozing, Sudden Increased Bleeding, Increased Pain/ Swelling, Increased Redness, Foul Smelling Discharge Call your doctor if you observe: Fever of 101 or Higher, Coldness, Increased Pain, Numbness or Tingling, Change in Color, Calf discomfort, Uncontrolled pain Remove Dressing in (days):: 2 - Remove Dressing on 02/20/18, will use dry dressing without tape at that time Allergies/Adverse Reactions: Allergies hydrochlorothiazide Allergy (Verified 02/13/18 10:13) Unknown Penicillins [PCN] Allergy (Verified 02/13/18 10:13) Swelling pioglitazone [From Actos] Allergy (Verified 02/13/18 10:13) Unknown oxycodone [From OxyIR] Adverse Reaction (Verified 02/15/18 23:25) Other pravastatin Adverse Reaction (Verified 02/13/18 10:13) Pain in joints tramadol [From Ultram] Adverse Reaction (Verified 02/15/18 23:25) Other Medications to take at Discharge Aspirin [Aspirin EC] 81 mg PO DAILY 03/15/17 Bupropion HCl [Bupropion HCl ER] 100 mg PO LUNCH 03/15/17 Cilostazol 50 mg PO BID 03/15/17 Fluoxetine HCl [Prozac] 20 mg PO TID 03/15/17 Gabapentin [Neurontin] 300 mg PO TID 03/15/17 Insulin Human 70/30 [Novolog Mix 70-30 Flexpen Syrn] 26 units SC DAILYCM 03/15/17 Insulin Human 70/30 [Novolog Mix 70-30 Flexpen Syrn] 30 units SC DINNER 03/15/17 Metoprolol Succinate [Toprol Xl] 12.5 mg PO QHS 03/15/17 Multivitamin [Multiple Vitamins] 1 each PO DAILY 03/15/17 buPROPion XL [Wellbutrin Xl] 300 mg PO DAILY 03/15/17 Isosorbide Mononitrate [Imdur] 90 mg PO DAILY 01/24/18 Quetiapine Fumarate [Seroquel] 25 mg PO DAILY 01/24/18 Acetaminophen [Tylenol Extra Strength] 500 mg PO Q6H PRN PRN #1 tablet 02/20/18 Clopidogrel Bisulfate [Plavix] 75 mg PO DAILY #30 tablet 02/20/18 Donepezil HCl [Aricept] 10 mg PO QHS #30 tablet 02/20/18 Gabapentin [Neurontin] 300 mg PO TID capsule 02/20/18 Gemfibrozil [Lopid] 600 mg PO BIDAC tablet 02/20/18 Lisinopril [Zestril] 40 mg PO DAILY #30 tablet 02/20/18 traMADol [Ultram (G)] 50 mg PO Q6H PRN PRN 7 Days #30 tablet 02/20/18 The following prescriptions were given: Acetaminophen [Tylenol Extra Strength] 500 mg PO Q6H PRN PRN #1 tablet PRN Reason: Pain traMADol [Ultram (G)] 50 mg PO Q6H PRN PRN 7 Days #30 tablet PRN Reason: Pain Clopidogrel Bisulfate [Plavix] 75 mg PO DAILY #30 tablet Donepezil HCl [Aricept] 10 mg PO QHS #30 tablet Lisinopril [Zestril] 40 mg PO DAILY #30 tablet Primary Care Physician: Tanisha Rios MD [Primary Care Provider] - Test Results: Test results from this visit will be discussed in further detail at your follow-up appointment, if applicable. Please Follow Up With: Cesar Simpson PA-C When: 02/26/18 @ 10:00 am Please Follow Up With: Home Health Physical Therapy When: will need to be set up prior to discharge 02/20/18 1606 <Electronically signed by Frederick Maldonado DO> Date Frederick Maldonado DO CC: Scarlett Quezada; Willis Frey MD; Tanisha Rios MD BEDSIDE GLUCOSE Collected: 02/20/2018 Status: F Source: [place] 11:06 AM REPOSITORY TYPE CODE TESTS RESULT OUT OF REFERENCE UNITS RANGE LAB L501.080 70-110 mg/dL High BEDSIDE GLU 144 Result Comment: MANAGEMENT OF PATIENT CARE PER NURSING PROTOCOL Performed By: #### L501.080 #### [facility] Point of Care [address] [place] [address] BEDSIDE GLUCOSE Collected: 02/20/2018 Status: F Source: [place] 6:51 AM REPOSITORY TYPE CODE TESTS RESULT OUT OF REFERENCE UNITS RANGE LAB L501.080 70-110 mg/dL High BEDSIDE GLU 289 Result Comment: MANAGEMENT OF PATIENT CARE PER NURSING PROTOCOL Performed By: #### L501.080 #### [facility] Point of Care [address] [place] [address] PROTHROMBIN TIME W/INR Collected: 02/20/2018 Status: F Source: [place] 5:00 AM REPOSITORY TYPE CODE TESTS RESULT OUT OF RANGE REFERENCE UNITS LAB L300.4150 11.7-14.9 SECONDS Normal PROTIME 12.4 LAB L300.4200 Normal INR 0.9 Performed By: #### L300.3900, L300.4310 #### [facility] [address] [place], [address] PARTIAL THROMBOPLAST Collected: 02/20/2018 Status: F Source: [place] TIME 5:00 AM REPOSITORY TYPE CODE TESTS RESULT OUT OF RANGE REFERENCE UNITS LAB L300.4310 24.1-36.2 Seconds Normal PTT 34.4 Performed By: #### L300.3900, L300.4310 #### [facility] [address] [place], [address] BASIC METABOLIC Collected: 02/20/2018 Status: F Source: [place] PROFILE (BMP) 5:00 AM REPOSITORY TYPE CODE TESTS RESULT OUT OF RANGE REFERENCE UNITS LAB L501.0100 74-106 mg/dL High GLU 312 Result Comment: Glucose result greater than or equal to 200 mg/dL suggests DIABETES MELLITUS per A.D.A. criteria. Please note revised GLUCOSE reference range effective 2017. LAB L501.1000 7-18 mg/dL Normal BUN 13 LAB L501.1100 0.70-1.30 mg/dL Normal CREAT,SERUM 1.03 Result Comment: The validity of the calculated GFR AND GFRAA in patients over 70 years has not been determined. Clinical correlation is essential. LAB L501.1110 >60 mL/min Normal EST GFR 76 Result Comment: Non- GFR Calc LAB L501.1115 >60 mL/min Normal EST GFR - AA 92 Result Comment: GFR Calc LAB L501.1255 ml/min Normal Estimated CRCL 65.07 LAB L501.1300 10-20 RATIO Normal BUN/CRE 12.6 LAB L501.2200 8.5-10 mg/dL Normal .1 CA 9.1 LAB L501.5300 136-14 mmol/L Normal 5 NA 141 LAB L501.5600 3.5-5. mmol/L Normal 1 K 4.0 LAB L501.5900 98-107 mmol/L Normal CL 103 LAB L501.6100 21.0-3 mmol/L Normal 2.0 CO2 28.0 LAB L501.6200 5-15 Normal GAP 10 Performed By: #### L500.2500 #### [facility] [address] [place], [address] CBC W/DIFF, AUTOMATED Collected: 02/20/2018 Status: F Source: [place] 5:00 AM REPOSITORY TYPE CODE TESTS RESULT OUT OF RANGE REFERENCE UNITS LAB L100.1000 4.4-11.0 K/mm3 Normal WBC 6.5 LAB L100.1200 4.6-6.2 M/mm3 Low RBC 3.42 LAB L100.1300 13.0-16.5 g/dl Low HGB 10.4 LAB L100.1400 40-54 % Low HCT 31.8 LAB L100.1500 80-94 fL Normal MCV 93.0 LAB L100.1600 27.0-32.0 pg Normal MCH 30.4 LAB L100.1700 32-36 g/gl Normal MCHC 32.7 LAB L100.1810 11.6-14.6 % Normal RDW CV 13.5 LAB L100.1820 35.1-43.9 fl High RDW SD 44.4 LAB L100.1900 150-450 K/mm3 Normal PLT 267 LAB L100.2000 6.2-12.0 fl High MPV 12.5 LAB L100.2100 47-70 % Normal NEUT% 59.9 LAB L100.2200 19-41 % Normal LY% 24.5 LAB L100.2300 0-10 % High MONO% 10.4 LAB L100.2400 0-5 % Normal EO% 4.4 LAB L100.2500 0-1 % Normal BASO% 0.5 LAB L100.2550 0.0-0.9 % Normal IM GRAN % 0.300 Result Comment: IG% - Immature Granulocytes (promyelocytes, myelocytes and metamyelocytes) > 1% indicates that a LEFT SHIFT is Present. LAB L100.2620 2.0-7.7 X10 3/uL Normal Absolute Neut 3.9 LAB L100.2720 0.83-4.51 X10 3/ul Normal Absolute Lymph 1.60 Performed By: #### L100.0100 #### [facility] [address] [place], [place], [id number] BEDSIDE GLUCOSE Collected: 02/19/2018 Status: F Source: [place] 8:49 PM REPOSITORY TYPE CODE TESTS RESULT OUT OF REFERENCE UNITS RANGE LAB L501.080 70-110 mg/dL High BEDSIDE GLU 197 Result Comment: MANAGEMENT OF PATIENT CARE PER NURSING PROTOCOL Performed By: #### L501.080 #### [facility] Point of Care [address] [place], [place] [id number] BEDSIDE GLUCOSE Collected: 02/19/2018 Status: F Source: [place] 4:40 PM REPOSITORY TYPE CODE TESTS RESULT OUT OF REFERENCE UNITS RANGE LAB L501.080 70-110 mg/dL High BEDSIDE GLU 151 Result Comment: MANAGEMENT OF PATIENT CARE PER NURSING PROTOCOL Performed By: #### L501.080 #### [facility] Point of Care [address] [place], [place] [id number] BEDSIDE GLUCOSE Collected: 02/19/2018 Status: F Source: [place] 11:27 AM REPOSITORY TYPE CODE TESTS RESULT OUT OF REFERENCE UNITS RANGE LAB L501.080 70-110 mg/dL High BEDSIDE GLU 239 Result Comment: MANAGEMENT OF PATIENT CARE PER NURSING PROTOCOL Performed By: #### L501.080 #### [facility] Point of Care [address] [place] [address] BEDSIDE GLUCOSE Collected: 02/19/2018 Status: F Source: [place] 6:54 AM REPOSITORY TYPE CODE TESTS RESULT OUT OF REFERENCE UNITS RANGE LAB L501.080 70-110 mg/dL High BEDSIDE GLU 186 Result Comment: MANAGEMENT OF PATIENT CARE PER NURSING PROTOCOL Performed By: #### L501.080 #### [facility] Point of Care [address] [place] [address] CBC W/DIFF, AUTOMATED Collected: 02/19/2018 Status: F Source: [place] 5:35 AM REPOSITORY TYPE CODE TESTS RESULT OUT OF RANGE REFERENCE UNITS LAB L100.1000 4.4-11.0 K/mm3 Normal WBC 5.9 LAB L100.1200 4.6-6.2 M/mm3 Low RBC 3.12 LAB L100.1300 13.0-16.5 g/dl Low HGB 9.2 LAB L100.1400 40-54 % Low HCT 28.5 LAB L100.1500 80-94 fL Normal MCV 91.3 LAB L100.1600 27.0-32.0 pg Normal MCH 29.5 LAB L100.1700 32-36 g/gl Normal MCHC 32.3 LAB L100.1810 11.6-14.6 % Normal RDW CV 13.5 LAB L100.1820 35.1-43.9 fl High RDW SD 44.7 LAB L100.1900 150-450 K/mm3 Normal PLT 223 LAB L100.2000 6.2-12.0 fl High MPV 12.3 LAB L100.2100 47-70 % Normal NEUT% 63.4 LAB L100.2200 19-41 % Normal LY% 21.4 LAB L100.2300 0-10 % High MONO% 11.5 LAB L100.2400 0-5 % Normal EO% 3.4 LAB L100.2500 0-1 % Normal BASO% 0.3 LAB L100.2550 0.0-0.9 % Normal IM GRAN % 0.000 Result Comment: IG% - Immature Granulocytes (promyelocytes, myelocytes and metamyelocytes) > 1% indicates that a LEFT SHIFT is Present. LAB L100.2620 2.0-7.7 X10 3/uL Normal Absolute Neut 3.7 LAB L100.2720 0.83-4.51 X10 3/ul Normal Absolute Lymph 1.25 Performed By: #### L100.0100 #### [facility] [address] [place], [address] BASIC METABOLIC Collected: 02/19/2018 Status: F Source: [place] PROFILE ([facility]) 5:35 AM REPOSITORY TYPE CODE TESTS RESULT OUT OF RANGE REFERENCE UNITS LAB L501.0100 74-106 mg/dL High GLU 188 Result Comment: Fasting Glucose result greater than or equal to 126 mg/dL suggests DIABETES MELLITUS per A.D.A. criteria. Please note revised GLUCOSE reference range effective 2017. LAB L501.1000 7-18 mg/dL Normal BUN 12 LAB L501.1100 0.70-1.30 mg/dL Normal CREAT,SERUM 0.83 Result Comment: The validity of the calculated GFR AND GFRAA in patients over 70 years has not been determined. Clinical correlation is essential. LAB L501.1110 >60 mL/min Normal EST GFR 98 Result Comment: Non- GFR Calc LAB L501.1115 >60 mL/min Normal EST GFR - AA 119 Result Comment: GFR Calc LAB L501.1255 ml/min Normal Estimated CRCL 80.74 LAB L501.1300 10-20 RATIO Normal BUN/CRE 14.5 LAB L501.2200 8.5-10 mg/dL Normal .1 CA 8.6 LAB L501.5300 136-14 mmol/L Normal 5 NA 141 LAB L501.5600 3.5-5. mmol/L Normal 1 K 3.9 LAB L501.5900 98-107 mmol/L Normal CL 105 LAB L501.6100 21.0-3 mmol/L Normal 2.0 CO2 27.0 LAB L501.6200 5-15 Normal GAP 9 Performed By: #### L500.2500 #### [facility] [address] [place] [place], [address] BEDSIDE GLUCOSE Collected: 02/18/2018 Status: F Source: [place] 10:18 PM REPOSITORY TYPE CODE TESTS RESULT OUT OF REFERENCE UNITS RANGE LAB L501.080 70-110 mg/dL High BEDSIDE GLU 172 Result Comment: Insulin Given MANAGEMENT OF PATIENT CARE PER NURSING PROTOCOL Performed By: #### L501.080 #### [facility] Point of Care [address] [place] [address] BEDSIDE GLUCOSE Collected: 02/18/2018 Status: F Source: [place] 4:13 PM REPOSITORY TYPE CODE TESTS RESULT OUT OF REFERENCE UNITS RANGE LAB L501.080 70-110 mg/dL High BEDSIDE GLU 163 Result Comment: MANAGEMENT OF PATIENT CARE PER NURSING PROTOCOL Performed By: #### L501.080 #### [facility] Point of Care [address] [place] [address] PARTIAL THROMBOPLAST Collected: 02/18/2018 Status: F Source: [place] TIME 1:30 PM REPOSITORY Order Comment: Comments: HEPARIN GTT TYPE CODE TESTS RESULT OUT OF RANGE REFERENCE UNITS LAB L300.4310 24.1-36.2 Seconds Normal PTT 35.8 Performed By: #### L300.4310 #### [facility] [address] [facility] [address] BEDSIDE GLUCOSE Collected: 02/18/2018 Status: F Source: [place] 10:59 AM REPOSITORY TYPE CODE TESTS RESULT OUT OF REFERENCE UNITS RANGE LAB L501.080 70-110 mg/dL High BEDSIDE GLU 157 Result Comment: MANAGEMENT OF PATIENT CARE PER NURSING PROTOCOL Performed By: #### L501.080 #### [facility] Point of Care [address] [place] [address] DISCHARGE INSTRUCTION Observed: 02/18/2018 Status: F Source: [place] 9:06 AM REPOSITORY [facility] Medical Records Department [address] [place] [address] Instructions for Home/Discharge Instructions 02/18/18 0858 MR#: [id number] Acct: [id number] Name: VALENTINEJHONNY Yamileth Rep #: [id number] : 1950 67 From: Cesar Simpson PA-C PCP: Tanisha Rios MD Status: ADM IN Discharge Diet: No Restrictions Discharge Activity: May Not Drive May shower in (days): 1 - turn dressing away from water Ice area for (Minutes): 20 - every hour while awake. Weight Bearing Status: Weight bearing as tolerated Elevate: Operative Extremity Additional Activity Instructions:: Wear elastic stockings for 2 weeks after your surgery. Call your doctor if your incision/area has: Continuous Slow Oozing, Sudden Increased Bleeding, Increased Pain/ Swelling, Increased Redness, Foul Smelling Discharge Call your doctor if you observe: Fever of 101 or Higher, Coldness, Increased Pain, Numbness or Tingling, Change in Color, Calf discomfort, Uncontrolled pain Remove Dressing in (days):: 2 - Remove Dressing on 02/20/18, will use dry dressing without tape at that time Additional Instructions: Patient will follow up per post-op instructions Pain Control: Take Extra Strength Tylenol 500 mg 2 tablets every 8 hours for primary pain control. Then use Tramadol 50 mg 1-2 tablets as needed for breakthrough pain. Allergies/Adverse Reactions: Allergies hydrochlorothiazide Allergy (Verified 02/13/18 10:13) Unknown Penicillins [PCN] Allergy (Verified 02/13/18 10:13) Swelling pioglitazone [From Actos] Allergy (Verified 02/13/18 10:13) Unknown oxycodone [From OxyIR] Adverse Reaction (Verified 02/15/18 23:25) Other pravastatin Adverse Reaction (Verified 02/13/18 10:13) Pain in joints tramadol [From Ultram] Adverse Reaction (Verified 02/15/18 23:25) Other Medications to take at Discharge Aspirin [Aspirin EC] 81 mg PO DAILY 03/15/17 Bupropion HCl [Bupropion HCl ER] 100 mg PO LUNCH 03/15/17 Cilostazol 50 mg PO BID 03/15/17 Fluoxetine HCl [Prozac] 20 mg PO TID 03/15/17 Gabapentin [Neurontin] 300 mg PO TID 03/15/17 Insulin Human 70/30 [Novolog Mix 70-30 Flexpen Syrn] 26 units SC DAILYCM 03/15/17 Insulin Human 70/30 [Novolog Mix 70-30 Flexpen Syrn] 30 units SC DINNER 03/15/17 Lisinopril [Zestril] 20 mg PO DAILY 03/15/17 Metformin HCl [Glucophage] 1,000 mg PO BIDCM 03/15/17 Metoprolol Succinate [Toprol Xl] 12.5 mg PO QHS 03/15/17 Multivitamin [Multiple Vitamins] 1 each PO DAILY 03/15/17 buPROPion XL [Wellbutrin Xl] 300 mg PO DAILY 03/15/17 Donepezil HCl [Aricept] 5 mg PO QHS 01/24/18 Isosorbide Mononitrate [Imdur] 90 mg PO DAILY 01/24/18 Quetiapine Fumarate [Seroquel] 25 mg PO DAILY 01/24/18 levoFLOXacin tablet [Levaquin tablet] 750 mg PO DAILY@0600 #5 tablet 02/16/18 The following prescriptions were given: levoFLOXacin tablet [Levaquin tablet] 750 mg PO DAILY@0600 #5 tablet Primary Care Physician: Tanisha Rios MD [Primary Care Provider] - Test Results: Test results from this visit will be discussed in further detail at your follow-up appointment, if applicable. Please Follow Up With: Cesar Simpson PA-C When: 02/26/18 @ 10:00 am Please Follow Up With: Home Health Physical Therapy When: will need to be set up prior to discharge 02/18/18 09 <Electronically signed by Cesar Simpson PA-C> Date Cesar Simpson PA-C CC: Scarlett Quezada; Willis Frey MD; Tanisha Rios MD PARTIAL THROMBOPLAST Collected: 02/18/2018 Status: F Source: [place] TIME 6:54 AM REPOSITORY TYPE CODE TESTS RESULT OUT OF REFERENCE UNITS RANGE LAB L300.4310 24.1-36.2 Seconds High PTT 56.5 Performed By: #### L300.4310 #### [facility] [address] [place], [address] CBC W/DIFF, AUTOMATED Collected: 02/18/2018 Status: F Source: [place] 6:54 AM REPOSITORY TYPE CODE TESTS RESULT OUT OF RANGE REFERENCE UNITS LAB L100.1000 4.4-11.0 K/mm3 Normal WBC 7.5 LAB L100.1200 4.6-6.2 M/mm3 Low RBC 3.09 LAB L100.1300 13.0-16.5 g/dl Low HGB 9.2 LAB L100.1400 40-54 % Low HCT 28.1 LAB L100.1500 80-94 fL Normal MCV 90.9 LAB L100.1600 27.0-32.0 pg Normal MCH 29.8 LAB L100.1700 32-36 g/gl Normal MCHC 32.7 LAB L100.1810 11.6-14.6 % Normal RDW CV 13.4 LAB L100.1820 35.1-43.9 fl High RDW SD 44.2 LAB L100.1900 150-450 K/mm3 Normal PLT 193 LAB L100.2000 6.2-12.0 fl High MPV 12.5 LAB L100.2100 47-70 % Normal NEUT% 65.1 LAB L100.2200 19-41 % Normal LY% 23.6 LAB L100.2300 0-10 % Normal MONO% 9.9 LAB L100.2400 0-5 % Normal EO% 1.2 LAB L100.2500 0-1 % Normal BASO% 0.1 LAB L100.2550 0.0-0.9 % Normal IM GRAN % 0.100 Result Comment: IG% - Immature Granulocytes (promyelocytes, myelocytes and metamyelocytes) > 1% indicates that a LEFT SHIFT is Present. LAB L100.2620 2.0-7.7 X10 3/uL Normal Absolute Neut 4.9 LAB L100.2720 0.83-4.51 X10 3/ul Normal Absolute Lymph 1.77 Performed By: #### L100.0100 #### [facility] [address] [place], [place], [id number] BASIC METABOLIC Collected: 02/18/2018 Status: F Source: [place] PROFILE ([facility]) 6:54 AM REPOSITORY TYPE CODE TESTS RESULT OUT OF RANGE REFERENCE UNITS LAB L501.0100 74-106 mg/dL High GLU 229 Result Comment: Glucose result greater than or equal to 200 mg/dL suggests DIABETES MELLITUS per A.D.A. criteria. Please note revised GLUCOSE reference range effective 2017. LAB L501.1000 7-18 mg/dL Normal BUN 11 LAB L501.1100 0.70-1.30 mg/dL Normal CREAT,SERUM 0.87 Result Comment: The validity of the calculated GFR AND GFRAA in patients over 70 years has not been determined. Clinical correlation is essential. LAB L501.1110 >60 mL/min Normal EST GFR 93 Result Comment: Non- GFR Calc LAB L501.1115 >60 mL/min Normal EST GFR - AA 113 Result Comment: GFR Calc LAB L501.1255 ml/min Normal Estimated CRCL 77.03 LAB L501.1300 10-20 RATIO Normal BUN/CRE 12.7 LAB L501.2200 8.5-10 mg/dL Low .1 CA 8.2 LAB L501.5300 136-14 mmol/L Normal 5 NA 138 LAB L501.5600 3.5-5. mmol/L Normal 1 K 3.7 LAB L501.5900 98-107 mmol/L Normal CL 102 LAB L501.6100 21.0-3 mmol/L Normal 2.0 CO2 26.0 LAB L501.6200 5-15 Normal GAP 10 Performed By: #### L500.2500 #### [facility] [address] [place], [address] BEDSIDE GLUCOSE Collected: 02/18/2018 Status: F Source: [place] 6:44 AM REPOSITORY TYPE CODE TESTS RESULT OUT OF REFERENCE UNITS RANGE LAB L501.080 70-110 mg/dL High BEDSIDE GLU 232 Result Comment: MANAGEMENT OF PATIENT CARE PER NURSING PROTOCOL Performed By: #### L501.080 #### [facility] Point of Care [address] [place] [address] PARTIAL THROMBOPLAST Collected: 02/17/2018 Status: F Source: [place] TIME 11:25 PM REPOSITORY Order Comment: Comments: HEPARIN GTT TYPE CODE TESTS RESULT OUT OF REFERENCE UNITS RANGE LAB L300.4310 24.1-36.2 Seconds High PTT 62.6 Performed By: #### L300.4310 #### [facility] [address] [place], [address] BEDSIDE GLUCOSE Collected: 02/17/2018 Status: F Source: [place] 9:35 PM REPOSITORY TYPE CODE TESTS RESULT OUT OF REFERENCE UNITS RANGE LAB L501.080 70-110 mg/dL High BEDSIDE GLU 223 Result Comment: MANAGEMENT OF PATIENT CARE PER NURSING PROTOCOL Performed By: #### L501.080 #### [facility] Point of Care [address] [place] [address] PARTIAL THROMBOPLAST Collected: 02/17/2018 Status: F Source: [place] TIME 5:36 PM REPOSITORY Order Comment: Comments: HEPARIN GTT TYPE CODE TESTS RESULT OUT OF REFERENCE UNITS RANGE LAB L300.4310 24.1-36.2 Seconds High PTT 64.4 Performed By: #### L300.4310 #### [facility] [address] [place], [address] BEDSIDE GLUCOSE Collected: 02/17/2018 Status: F Source: [place] 4:26 PM REPOSITORY TYPE CODE TESTS RESULT OUT OF REFERENCE UNITS RANGE LAB L501.080 70-110 mg/dL High BEDSIDE GLU 115 Result Comment: MANAGEMENT OF PATIENT CARE PER NURSING PROTOCOL Performed By: #### L501.080 #### [facility] Point of Care [address] [place], [place] [id number] TROPONIN-I Collected: 02/17/2018 Status: F Source: [place] 1:59 PM REPOSITORY TYPE CODE TESTS RESULT OUT OF RANGE REFERENCE UNITS LAB L501.4010 <0.045 ng/mL High alert 6.790 TROPONIN-I Result Comment: Critical Result(s) Called at: 15:13:02 02/17/2018 by: CHRISTINA bennett in pcu TROPONIN-I EXPECTED VALUES <0.045 Negative 0.045 - 0.590 Consistent with Cardiac Damage > OR = 0.600 Critical Value Not every elevated troponin is indicative of VT. These values should be used with clinical judgement in examining the patient's clinical picture for diagnosis. To establish a diagnosis of VT versus myocardial injury, there must be a demonstrated rise and/or fall in the troponin values, in addition to ischemic symptoms, EKG changes, new regional wall motion abnormality, and/or angiographical evidence. PLEASE NOTE: REFERENCE RANGES EDITED 17 Performed By: #### L501.4010 #### [facility] [address] [place], [address] CONSULTATION Observed: 02/17/2018 Status: F Source: [place] 11:41 AM REPOSITORY [facility] Medical Records Department [address] [place] [address] Consultation 02/17/18 1128 MR#: [id number] Acct: [id number] Name: JHONNY GRIJALVA Rep #: [id number] : 1950 67 From: Willis Frey MD PCP: Tanisha Rios MD Status: ADM IN Y Location: [place] [address] Problem List (1) Non-STEMI (non-ST elevated myocardial infarction) Status: Acute (2) Coronary artery disease Status: Acute (3) Hypertensive urgency Status: Acute (4) Chest pain Status: Acute (5) DM2 (diabetes mellitus, type 2) Status: Chronic Reason for Consult Date of Consultation: 02/17/18 Reason for Consultation: Unstable angina, coronary artery disease status post CABG, non-STEMI, mild LV dysfunction, hypertensive urgency, diabetes, anemia History of Present Illness: The patient is a 67 year old M, with diabetes, hypertension, hypercholesterolemia, coronary artery disease status post bypass surgery x2 operations. His initial operation took place at [facility] by Dr. Mijares and apparently was 3 vessels in 2006, followed by 4 vessels in [address] Lani shah at [facility]. 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 Apparently he was seen in September 2017 with complaint of chest pain underwent repeat catheterization on 09/25/17 at [facility]. At that time he was found to have a 25% left main, and occluded LAD, and 80% obtuse marginal #1, a 50% left circumflex which was flow wire and found to be 0.95, and a 90% obtuse marginal #3. Of note, it did not mention in his report whether his bypass grafts were imaged at that time. His previous echocardiogram showed an EF around 50% with lateral wall hypokinesis at baseline. Patient apparently has had worsening left knee pain, to the point where he required a total knee replacement which was performed on Monday of this past week by Dr. Borrego. Apparently he had done well up until around when he developed substernal chest pain with associated hypertension as his blood pressure was 199/106. In addition he had a decrease in his hemoglobin from his baseline of 13 down to around 10. Patient was seen by hospitalist last evening and EKG was performed which showed normal sinus rhythm, incomplete right bundle branch block, and no acute changes. His initial troponin was 9.2 and he was moved to U telemetry for further evaluation. The patient reports that prior to his surgery he had limited mobility but did have episodes of substernal chest pain. Apparently he had had Imdur 90 mg p.o. daily added in September 2017 for his coronary artery disease and medical management. Patient was given 300 mg of Plavix, followed by 75 mg daily starting today as well as an IV heparin drip. Currently the patient is resting comfortably. No acute distress, family at bedside. His left knee is wrapped in a cooling sleeve, but appears to have no significant pain. Apparently he is intolerant to statins, and also has peripheral vascular disease currently on cilostazol. An echocardiogram was done today which demonstrated mild mid anterior and mid inferior hypokinesis with an overall ejection fraction of around 45- 50%, and an RVSP of 45 mmHg. This is consistent with his recent echocardiogram in September 2017. [] Past Medical History Allergies/Adverse Reactions: Allergies hydrochlorothiazide Allergy (Verified 02/13/18 10:13) Unknown Penicillins [PCN] Allergy (Verified 02/13/18 10:13) Swelling pioglitazone [From Actos] Allergy (Verified 02/13/18 10:13) Unknown oxycodone [From OxyIR] Adverse Reaction (Verified 02/15/18 23:25) Other pravastatin Adverse Reaction (Verified 02/13/18 10:13) Pain in joints tramadol [From Ultram] Adverse Reaction (Verified 02/15/18 23:25) Other Home Medications: Ambulatory Orders Medication Instructions Recorded Aspirin [Aspirin EC] 81 mg PO DAILY 03/15/17 Bupropion HCl [Bupropion HCl ER] 100 mg PO LUNCH 03/15/17 Cilostazol 50 mg PO BID 03/15/17 Past Medical History (Chronic Problems): Chronic Problems DM2 (diabetes mellitus, type 2) (Chronic) Smoking Status: Never smoker Review of Systems - Review of Systems General: Denies: Fever, Night Sweats, Fatigue Cardiovascular: Denies: Chest Discomfort, Shortness of Breath, Orthopnea, PND, Peripheral Edema, Palpitations, Lightheadedness, Dizziness, Near Syncope, Syncope Respiratory: Denies: Cough, Sputum Production, Hemoptysis Gastrointestinal: Denies: Hematemesis, Hematochezia, Melena Genitourinary: Denies: Dysuria, Hematuria Skin: Denies: Rash Objective: Vital Signs Temp Pulse Resp BP Pulse Ox 99.2 F H 68 18 142/62 H 99 02/17/18 09:30 02/17/18 09:45 02/17/18 09:30 02/17/18 09:45 02/17/18 09:30 Oxygen Delivery Method Room Air Weight: 248 lb Body Mass Index (BMI) 38.8 Finger Stick Blood Glucose 272 Intake and Output for Last 24 Hours Intake Total 1640 / 1640 800 / 800 900 / 900 Output Total 375 / 375 Balance 1265 / 1265 800 / 800 900 / 900 General: Awake, Alert, Oriented x 3 HEENT: PERRL, EOMI, Sclera Non Icteric Neck: Supple, Good ROM, No Lymph Node Enlargement Lungs: Clear to auscultation Cardiovascular: Regular Rhythm, Normal S1, Normal S2, No Murmurs, No Rubs, No Gallops Vascular: No Carotid Bruits, Normal Femoral Pulses, Normal Radial Pulses, Normal Dorsalis Pedal Pulse, Normal Posterior Tibial Pulses Abdomen: Bowel Sounds Present, Soft, Non Tender, No HSM, No Organomegaly Extremities: No Cyanosis, No Clubbing, No edema Neurological: No Focal Motor or Sensory Deficit 02/17/18 08:45: Troponin I 9.220 H* 02/17/18 11:05: WBC 9.7, RBC 3.17 L, Hgb 9.4 L, Hct 28.9 L, MCV 91.2, MCH 29.7, MCHC 32.5, RDW 13.3, RDW Differential 44.7 H, Plt Count 174, MPV 12.6 H, Immature Gran % (Auto) 0.100, Neut % (Auto) 72.6 H, Lymph % (Auto) 17.1 L, [place] % (Auto) 9.3, Eos % (Auto) 0.8, Baso % (Auto) 0.1, Absolute Neuts (auto) 7.1 Rhythm: EKG: As above ECHO: As above Stress Test: Cardiac Cath: Pending PCI: CT Surgery: Holter monitor: EPS: PPM: CXR: Chest CT Scan: Assessment/Plan 1. Coronary artery disease: The patient has an extensive coronary history including 2 bypass surgeries, the most recent of which was in 2014, repeat catheterization in September 2017 however no mention of his bypass grafts were delineated in his report. The patient was found to have significant LAD and left circumflex disease and had a flow wire evaluation of his left circumflex which was reportedly 0.95. No intervention was done at that time in order to facilitate the patient getting his knee surgery. Subsequent to his knee surgery the patient had a hypertensive urgency episode with a blood pressure of 199/106, possibly due to pain and/or limitations with giving him his pills or Imdur. His initial troponin was 9.2 superimposed upon a negative EKG for acute changes. Would recommend continuing baby aspirin 81 mg p.o. daily, loading him with Plavix 300 mg p.o. x1 followed by 75 mg/day if okay with Dr. Borrego, and starting him on an IV heparin drip to keep his PTT between 40 and 60. In addition I recommend that we obtain his catheterization film from September 2017 to fully evaluate his coronary anatomy to determine whether he requires a repeat catheterization and whether there be any benefit to doing so. If the patient has recurrent anginal symptoms despite adequate medical therapy would recommend catheterization prior to receiving his cath film. The meantime we will continue his Imdur 90 mg p.o. daily, restarting his Lopressor 12.5 mg nightly, continuing lisinopril 20 mg a day, in keeping his systolic blood pressure less than 140 in order to avoid demand ischemia. Would not recommend stress testing at this time. Recommend checking his troponins for a total of 3 sets to outline his degree of coronary ischemia/infarct. His echocardiogram done today demonstrates mild LV dysfunction with an EF of 50% with an RVSP of 45 mmHg. Also in the differential is possible pulmonary emboli as a result of his recent surgery however he does not appear to be tachypneic or short of breath as of this writing. As the treatment is the same with IV heparin, would not recommend exposing the patient to contrast dye in order to evaluate for pulmonary embolism. 2. Hyperlipidemia: The patient apparently is unable to tolerate statins although he has cardiovascular and peripheral vascular disease. Recommend obtaining a fasting lipid profile, and then initiating gemfibrozil 600 mg p.o. twice daily for aggressive LDL reduction. 3. Discussed with Dr. Castro. Thank you very much for the opportunity to participate in the cardiac care of your patient. Consultation time took place between 11 AM and 11:41 AM. Code Visit Inpatient E AND M: [id number] Init Hosp L2 02/17/18 1141 <Electronically signed by Willis Frey MD> Date Willis Frey MD Cosigner Signature (if applicable): Date CC: Scarlett Quezada; Willis Frey MD; Steph Borrego MD; Tanisha Rios MD Signed ECHO, COMPLETE W/ Observed: 02/17/2018 Status: F Source: [place] CONTRAST 11:28 AM REPOSITORY [facility] Cardiovascular Services [address] [place] [id number] Echo Complete W/ Contrast 02/17/18 1036 MR#: [id number] Acct: [id number] Name: JHONNY GRIJALVA Rep #: [id number] : 1950 67 From: Willis Frey MD Attending Dr: Clarence Castro DO Status: ADM IN Ordering : Clarence Castro DO Date: 02/17/18 Location: [facility] Sex: M C Admitted: 02/13/18 Reason For Study: Chest Pain Procedure This was a 2D Doppler, Color Flow transthoracic echocardiogram. The study was technically difficult. Contrast injection was performed. Exam performed portable in patient room. Left Ventricle Moderate concentric left ventricular hypertrophy. The estimated ejection fraction is 45-50 %. Stage 2 diastolic dysfunction. There are regional wall motion abnormalities as specified. Right Ventricle Normal size and thickness. Normal systolic function. Atria The left atrium is moderately enlarged. Normal right atrium. Normal atrial septum. Mitral Valve The mitral valve is structurally normal. No prolapse or stenosis seen. Trivial eccentric mitral valve insufficiency. Tricuspid Valve Normal tricuspid valve. Mild (1+) tricuspid valve insufficiency. Right ventricular systolic pressure estimated to be 45 mmHg. Mild pulmonary hypertension. Aortic Valve Normal aortic valve. Trisinus/trileaflet aortic valve. Pulmonic Valve The pulmonic valve is not well visualized. Great Vessels Normal aortic root. Normal arch. Normal inferior vena cava. Inferior vena cava collapse with sniff. Pericardium/Pleural No pericardial effusion. Medication Diluted definity 4ml given slow IV push to enhance endocardial definition. MMode/2D Measurements AND Calculations LVIDd: 4.8 cm IVSd: 1.6 cm Ao root diam: 3.9 cm LVIDs: 3.5 cm LVPWd: 1.3 cm LA dimension: 4.6 cm FS: 27.3 % LAV(MOD-bp): 84.2 ml LA A4 area: 25.9 cm2 LAV(MOD-bp) Indexed: 38.0 ml/m2 LAV(MOD-sp2): 83.2 ml LAV(MOD-sp4): 85.7 ml Time Measurements MV dec time: 0.15 sec Doppler Measurements AND Calculations MV E max gwendolyn: 114.4 cm/sec Lat Peak E' Gwendolyn: 5.9 cm/sec Med Peak E' Gwendolyn: 6.0 cm/sec MV A max gwendolyn: 44.5 cm/sec E/E' lat: 19.5 E/E' med: 19.1 MV E/A: 2.6 MV V2 max: 137.7 cm/sec MV P1/2t max gwendolyn: 138.7 cm/sec Ao V2 max: 141.6 cm/sec MV max P.6 mmHg MV P1/2t: 89.7 msec Ao max P.0 mmHg MV V2 mean: 62.4 cm/sec MV dec slope: 452.7 cm/sec2 Ao V2 mean: 82.1 cm/sec MV mean P.0 mmHg MVA(P1/2t): 2.5 cm2 Ao mean P.2 mmHg MV V2 VTI: 37.1 cm Ao V2 VTI: 24.0 cm LV V1 max: 119.0 cm/sec PA V2 max: 122.3 cm/sec TR max gwendolyn: 313.4 cm/sec LV V1 max P.7 mmHg TR max P.3 mmHg LV V1 mean P.3 mmHg LV V1 mean: 69.3 cm/sec LV V1 VTI: 21.4 cm Interpretation Summary Moderate concentric left ventricular hypertrophy. The estimated ejection fraction is 45-50 %. Stage 2 diastolic dysfunction. There are regional wall motion abnormalities as specified. The left atrium is moderately enlarged. Trivial eccentric mitral valve insufficiency. Mild (1+) tricuspid valve insufficiency. Right ventricular systolic pressure estimated to be 45 mmHg. Mild pulmonary hypertension. The study was technically limited. The study was technically difficult. There is no comparison study available. Contrast injection was performed. Ordering Physician: Clarence Castro Referring Physician: Steph Borrego Performed By: Chente Turner RCS 02/17/181127 Date Willis Frey MD CC: Clarence Castro DO; Steph Borrego MD; Tanisha Rios MD Date Dictated: 02/17/18 1036 Date Transcribed: 02/17/181127 Human Resource Manager: Signed BEDSIDE GLUCOSE Collected: 02/17/2018 Status: F Source: [place] 11:14 AM REPOSITORY TYPE CODE TESTS RESULT OUT OF RANGE REFERENCE UNITS LAB L501.080 70-110 mg/dL Normal BEDSIDE GLU 87 Result Comment: MANAGEMENT OF PATIENT CARE PER NURSING PROTOCOL Performed By: #### L501.080 #### [facility] [place], [place] [address] CBC W/DIFF, AUTOMATED Collected: 02/17/2018 Status: F Source: [place] 11:05 AM REPOSITORY TYPE CODE TESTS RESULT OUT OF RANGE REFERENCE UNITS LAB L100.1000 4.4-11.0 K/mm3 Normal WBC 9.7 LAB L100.1200 4.6-6.2 M/mm3 Low RBC 3.17 LAB L100.1300 13.0-16.5 g/dl Low HGB 9.4 LAB L100.1400 40-54 % Low HCT 28.9 LAB L100.1500 80-94 fL Normal MCV 91.2 LAB L100.1600 27.0-32.0 pg Normal MCH 29.7 LAB L100.1700 32-36 g/gl Normal MCHC 32.5 LAB L100.1810 11.6-14.6 % Normal RDW CV 13.3 LAB L100.1820 35.1-43.9 fl High RDW SD 44.7 LAB L100.1900 150-450 K/mm3 Normal PLT 174 LAB L100.2000 6.2-12.0 fl High MPV 12.6 LAB L100.2100 47-70 % High NEUT% 72.6 LAB L100.2200 19-41 % Low LY% 17.1 LAB L100.2300 0-10 % Normal MONO% 9.3 LAB L100.2400 0-5 % Normal EO% 0.8 LAB L100.2500 0-1 % Normal BASO% 0.1 LAB L100.2550 0.0-0.9 % Normal IM GRAN % 0.100 Result Comment: IG% - Immature Granulocytes (promyelocytes, myelocytes and metamyelocytes) > 1% indicates that a LEFT SHIFT is Present. LAB L100.2620 2.0-7.7 X10 3/uL Normal Absolute Neut 7.1 LAB L100.2720 0.83-4.51 X10 3/ul Normal Absolute Lymph 1.66 Performed By: #### L100.0100 #### [facility] [address] [place], [place], [id number] PROTHROMBIN TIME W/INR Collected: 02/17/2018 Status: F Source: [place] 11:05 AM REPOSITORY TYPE CODE TESTS RESULT OUT OF RANGE REFERENCE UNITS LAB L300.4150 11.7-14.9 SECONDS High PROTIME 19.5 LAB L300.4200 Normal INR 1.6 Performed By: #### L300.3900, L300.4310 #### [facility] [address] [facility] [id number] PARTIAL THROMBOPLAST Collected: 02/17/2018 Status: F Source: [place] TIME 11:05 AM REPOSITORY TYPE CODE TESTS RESULT OUT OF REFERENCE UNITS RANGE LAB L300.4310 24.1-36.2 Seconds High PTT 52.1 Performed By: #### L300.3900, L300.4310 #### [facility] [address] [place], [address] TROPONIN-I Collected: 02/17/2018 Status: F Source: [place] 11:05 AM REPOSITORY TYPE CODE TESTS RESULT OUT OF RANGE REFERENCE UNITS LAB L501.4010 <0.045 ng/mL High alert 9.790 TROPONIN-I Result Comment: Critical Result(s) Called at: 11:33:41 02/17/2018 by: Ney Sweeney RN TROPONIN-I EXPECTED VALUES <0.045 Negative 0.045 - 0.590 Consistent with Cardiac Damage > OR = 0.600 Critical Value Not every elevated troponin is indicative of VT. These values should be used with clinical judgement in examining the patient's clinical picture for diagnosis. To establish a diagnosis of VT versus myocardial injury, there must be a demonstrated rise and/or fall in the troponin values, in addition to ischemic symptoms, EKG changes, new regional wall motion abnormality, and/or angiographical evidence. PLEASE NOTE: REFERENCE RANGES EDITED 17 Performed By: #### L501.4010 #### [facility] [address] [place], [address] LIPID PROFILE Collected: 02/17/2018 Status: F Source: [place] 11:05 AM REPOSITORY TYPE CODE TESTS RESULT OUT OF RANGE REFERENCE UNITS LAB L501.4900 200 mg/dL Normal CHOL 162 Result Comment: <200 mg/dL Desirable 200-240 mg/dL Borderline >240 mg/dL High Risk LAB L501.5000 mg/dL Normal TRIG 164 Result Comment: The drugs N-Acetylcysteine and Metamizole may falsely depress this assay. Serum Triglycerides Reference Interval Normal <150 mg/dL Borderline high 150 - 199 mg/dL High 200 - 499 mg/dL Very High > or = 500 mg/dL LAB L501.6400 mg/dL Normal HDL 56 Result Comment: The drugs N-Acetylcysteine and Metamizole may falsely depress this assay. Reference Range HDL <40 mg/dL Low HDL Cholesterol HDL >or= 60 mg/dL High HDL Cholesterol LAB L501.6500 0-130 mg/dL Normal LDL 73 LAB L501.6600 5-40 mg/dL Normal VLDL 33 Performed By: #### L500.4100 #### [facility] [address] [place], [place], [address] TROPONIN-I Collected: 02/17/2018 Status: F Source: [place] 8:45 AM REPOSITORY TYPE CODE TESTS RESULT OUT OF RANGE REFERENCE UNITS LAB L501.4010 <0.045 ng/mL High alert 9.220 TROPONIN-I Result Comment: Critical Result(s) Called at: 09:22:23 02/17/2018 by: Ney Morales RN TROPONIN-I EXPECTED VALUES <0.045 Negative 0.045 - 0.590 Consistent with Cardiac Damage > OR = 0.600 Critical Value Not every elevated troponin is indicative of VT. These values should be used with clinical judgement in examining the patient's clinical picture for diagnosis. To establish a diagnosis of VT versus myocardial injury, there must be a demonstrated rise and/or fall in the troponin values, in addition to ischemic symptoms, EKG changes, new regional wall motion abnormality, and/or angiographical evidence. PLEASE NOTE: REFERENCE RANGES EDITED 17 Performed By: #### L501.4010 #### [facility] [address] [place], [address] BEDSIDE GLUCOSE Collected: 02/17/2018 Status: F Source: [place] 7:50 AM REPOSITORY TYPE CODE TESTS RESULT OUT OF REFERENCE UNITS RANGE LAB L501.080 70-110 mg/dL High BEDSIDE GLU 242 Result Comment: MANAGEMENT OF PATIENT CARE PER NURSING PROTOCOL Performed By: #### L501.080 #### [facility] Point of Care [address] [place] [address] BEDSIDE GLUCOSE Collected: 02/16/2018 Status: F Source: [place] 9:32 PM REPOSITORY TYPE CODE TESTS RESULT OUT OF REFERENCE UNITS RANGE LAB L501.080 70-110 mg/dL High BEDSIDE GLU 251 Result Comment: MANAGEMENT OF PATIENT CARE PER NURSING PROTOCOL Performed By: #### L501.080 #### [facility] Point of Care [address] [place] [address] BEDSIDE GLUCOSE Collected: 02/16/2018 Status: F Source: [place] 4:20 PM REPOSITORY TYPE CODE TESTS RESULT OUT OF REFERENCE UNITS RANGE LAB L501.080 70-110 mg/dL High BEDSIDE GLU 179 Result Comment: MANAGEMENT OF PATIENT CARE PER NURSING PROTOCOL Performed By: #### L501.080 #### [facility] Point of Care [address] [place] [address] BEDSIDE GLUCOSE Collected: 02/16/2018 Status: F Source: [place] 11:56 AM REPOSITORY TYPE CODE TESTS RESULT OUT OF REFERENCE UNITS RANGE LAB L501.080 70-110 mg/dL High BEDSIDE GLU 129 Result Comment: MANAGEMENT OF PATIENT CARE PER NURSING PROTOCOL Performed By: #### L501.080 #### [facility] Point of Care [address] [place], [place] [id number] BEDSIDE GLUCOSE Collected: 02/16/2018 Status: F Source: [place] 8:07 AM REPOSITORY TYPE CODE TESTS RESULT OUT OF REFERENCE UNITS RANGE LAB L501.080 70-110 mg/dL High BEDSIDE GLU 217 Result Comment: MANAGEMENT OF PATIENT CARE PER NURSING PROTOCOL Performed By: #### L501.080 #### [facility] Point of Care [address] [place] [address] CBC W/DIFF, AUTOMATED Collected: 02/16/2018 Status: F Source: [place] 7:01 AM REPOSITORY TYPE CODE TESTS RESULT OUT OF RANGE REFERENCE UNITS LAB L100.1000 4.4-11.0 K/mm3 Normal WBC 10.2 LAB L100.1200 4.6-6.2 M/mm3 Low RBC 3.21 LAB L100.1300 13.0-16.5 g/dl Low HGB 9.8 LAB L100.1400 40-54 % Low HCT 29.8 LAB L100.1500 80-94 fL Normal MCV 92.8 LAB L100.1600 27.0-32.0 pg Normal MCH 30.5 LAB L100.1700 32-36 g/gl Normal MCHC 32.9 LAB L100.1810 11.6-14.6 % Normal RDW CV 13.3 LAB L100.1820 35.1-43.9 fl Normal RDW SD 43.9 LAB L100.1900 150-450 K/mm3 Normal PLT 154 LAB L100.2000 6.2-12.0 fl High MPV 13.0 LAB L100.2100 47-70 % High NEUT% 76.9 LAB L100.2200 19-41 % Low LY% 14.0 LAB L100.2300 0-10 % Normal MONO% 8.6 LAB L100.2400 0-5 % Normal EO% 0.2 LAB L100.2500 0-1 % Normal BASO% 0.1 LAB L100.2550 0.0-0.9 % Normal IM GRAN % 0.200 Result Comment: IG% - Immature Granulocytes (promyelocytes, myelocytes and metamyelocytes) > 1% indicates that a LEFT SHIFT is Present. LAB L100.2620 2.0-7.7 X10 3/uL High Absolute Neut 7.8 LAB L100.2720 0.83-4.51 X10 3/ul Normal Absolute Lymph 1.43 Performed By: #### L100.0100 #### [facility] [address] [place], [address] BASIC METABOLIC Collected: 02/16/2018 Status: F Source: [place] PROFILE (BMP) 7:01 AM REPOSITORY TYPE CODE TESTS RESULT OUT OF RANGE REFERENCE UNITS LAB L501.0100 74-106 mg/dL High GLU 221 Result Comment: Glucose result greater than or equal to 200 mg/dL suggests DIABETES MELLITUS per A.D.A. criteria. Please note revised GLUCOSE reference range effective 2017. LAB L501.1000 7-18 mg/dL Normal BUN 13 LAB L501.1100 0.70-1.30 mg/dL Normal CREAT,SERUM 0.94 Result Comment: The validity of the calculated GFR AND GFRAA in patients over 70 years has not been determined. Clinical correlation is essential. LAB L501.1110 >60 mL/min Normal EST GFR 84 Result Comment: Non- GFR Calc LAB L501.1115 >60 mL/min Normal EST GFR - AA 102 Result Comment: GFR Calc LAB L501.1255 ml/min Normal Estimated CRCL 71.30 LAB L501.1300 10-20 RATIO Normal BUN/CRE 13.8 LAB L501.2200 8.5-10 mg/dL Normal .1 CA 8.5 LAB L501.5300 136-14 mmol/L Normal 5 NA 136 LAB L501.5600 3.5-5. mmol/L Normal 1 K 4.0 LAB L501.5900 98-107 mmol/L Normal CL 99 LAB L501.6100 21.0-3 mmol/L Normal 2.0 CO2 26.0 LAB L501.6200 5-15 Normal GAP 11 Performed By: #### L500.2500 #### [facility] [address] [place], [address] BEDSIDE GLUCOSE Collected: 02/15/2018 Status: F Source: [place] 9:19 PM REPOSITORY TYPE CODE TESTS RESULT OUT OF REFERENCE UNITS RANGE LAB L501.080 70-110 mg/dL High BEDSIDE GLU 228 Result Comment: MANAGEMENT OF PATIENT CARE PER NURSING PROTOCOL Performed By: #### L501.080 #### [facility] Point of Care [address] [place] [address] URINALYSIS, COMPLETE Collected: 02/15/2018 Status: F Source: [place] 4:55 PM REPOSITORY Order Comment: How was Urine Obtained? TONGSMAN TO SPECIFY TYPE CODE TESTS RESULT OUT OF RANGE REFERENCE UNITS LAB L400.3000 Yellow COLOR Normal Yellow LAB L400.3050 Clear Normal CLARITY Clear LAB L400.3200 Normal mg/dl Normal GLUCOSE, UR Normal LAB L400.3300 Negative mg/dL Normal BILIRUBIN URINE Negative LAB L400.3400 Negative mg/dl High 5 KETONE UR LAB L400.3465 1.002-1.030 Normal SP.GR. DIPSTX 1.010 LAB L400.3550 5.0 - 8.0 pH UR Normal 8.0 LAB L400.3600 Negative mg/dl PROT Normal DIPSTX Negative LAB L400.3700 Normal mg/dl Normal UROBILI Normal LAB L400.3750 Negative Normal NITRITE UR Negative LAB L400.3780 Negative /ul Normal OCCULT BLOOD-UR Negative LAB L400.3800 Negative /ul LEUK Normal ESTERASE Negative LAB L400.4050 0-5 /hpf WBC 0 Normal SEEN LAB L400.4100 0-5 /hpf 0 Normal RBC-UA SEEN LAB L400.4150 0-5 /hpf SQUAM 0 Normal EPI SEEN LAB L400.4300 None Seen /hpf 0 Normal BACTERIA SEEN LAB L400.4350 <or=2+ /hpf 0 Normal MUCUS, URINE SEEN Performed By: #### L400.0001 #### [facility] [address] [place], [address] Observed: 02/15/2018 Status: F Source: [place] LEGIONELLA ANTIGEN 4:55 PM URINE REPOSITORY Legionella, UR Legionella Antigen result interpretation: Negative Presumptive negative for Legionella pneumophila serogroup 1 antigen in urine, suggesting no recent or current infection. Legionella Ag, Urine Negative (See interpretation below) Performed By: #### M300.4500 #### [facility] [address] [place] [address], [address] STREP Observed: 02/15/2018 Status: F Source: [place] PNEUMONIAE ANTIG(UR,CSF) 4:55 PM REPOSITORY S pneumo Ag [] Negative Urine Presumptive negative for pneumococcal pneumonia, suggesting no current or recent pneumococcal infection. Infection due to S pneumoniae cannot be ruled out since the antigen present in the sample may be below the detection limit of the test. Strep pneumo Test Negative URINE (See interpretation below) Performed By: #### M300.4600 #### [facility] [address] [place] [address], [address] Observed: 02/15/2018 Status: F Source: [place] CULTURE, URINE 4:55 PM REPOSITORY Urine Culture Culture exhibits no growth. Performed By: #### M100.0650 #### [facility] [address] [place] [address], [address] BEDSIDE GLUCOSE Collected: 02/15/2018 Status: F Source: [place] 4:41 PM REPOSITORY TYPE CODE TESTS RESULT OUT OF REFERENCE UNITS RANGE LAB L501.080 70-110 mg/dL High BEDSIDE GLU 165 Result Comment: MANAGEMENT OF PATIENT CARE PER NURSING PROTOCOL Performed By: #### L501.080 #### [facility] Point of Care [address] [place] [address] BRAIN/HEAD WITHOUT Observed: 02/15/2018 Status: F Source: [place] CONTRAST 2:13 PM REPOSITORY [facility] Imaging Services [address] [place] [address] Brain/Head without Contrast MR#: [id number] Acct: [id number] Name: JHONNY GRIJALVA Rep #: [id number] : 1950 M 67 From: Randy Wade MD PCP: Tanisha Rios MD Status: ADM IN Study: Brain/Head without Contrast Date of Exam: 02/15/18 Exam# [id number] Ordering Dr: Clarence Castro DO STUDY: CT BRAIN WITHOUT CONTRAST REASON FOR EXAM: Male, 67 years old. Confusion. RADIATION DOSAGE (If Supplied By Facility): CTDIvol = ( 44.99 ) mGy, DLP = ( 745.49 ) mGycm TECHNIQUE: Transaxial CT imaging of the brain was performed without administration of intravenous contrast material. Individualized dose optimization techniques were used for this CT. COMPARISON: None. FINDINGS: Normal soft tissue structures. Normal calvarium. There is mild cerebral atrophy with widening of the extra- axial spaces and ventricular dilatation. Normal white matter tracts of the cerebral hemispheres. Normal basal ganglia and thalami. Normal brainstem. Normal cerebellum. There is no intracranial hemorrhage. There are no findings of an acute ischemic infarction. Focal mucosal thickening along the lateral wall of the left sphenoid sinus. CT/Brain/Head without Contrast IMPRESSION: Chronic involutional changes of the brain. Electronically Signed: Randy Wade MD at 14:49 EST Tel [phone], Service support , CC: Clarence Castro DO; Tansiha Rios MD Human Resource Manager: Signed CHEST 1 VIEW Observed: 02/15/2018 Status: F Source: [place] (PORTABLE) 2:13 PM REPOSITORY [facility] Imaging Services [address] [place] [address] Chest 1 View (Portable) MR#: [id number] Acct: [id number] Name: JHONNY GRIJALVA Rep #: [id number] : 1950 M 67 From: Nick Garcia MD PCP: Tanisha Rios MD Status: ADM IN Study: Chest 1 View (Portable) Date of Exam: 02/15/18 Exam# [id number] Ordering Dr: Clarence Castro DO STUDY: X-RAY CHEST REASON FOR EXAM: Male, 67 years old. Fever. Recent knee replacement. TECHNIQUE: Single AP portable view of the chest. COMPARISON: None. FINDINGS: Moderate lung volumes. There is diffuse hazy density and prominence of the bronchovascular markings in both lungs, most consistent with congestive failure and pulmonary edema.. Mild atelectasis in the lung bases. Sternal cerclage wires and vascular clips are present from a prior sternotomy and coronary artery bypass graft procedure (CABG). Mild cardiomegaly. Normal mediastinum and sami. Normal visualized pulmonary arteries. Normal visualized aortic arch and descending thoracic aorta. The visualized bones and joints show degenerative changes.. There is no demonstrated abnormality of the visualized soft tissue structures of the upper abdomen. RAD/Chest 1 View (Portable) IMPRESSION: Incomplete expansion of the lungs. Mild congestion and interstitial edema suggested. Electronically Signed: Nick Garcia MD at 18:37 EST , Service support , CC: Clarence Castro DO; Tanisha Rios MD Human Resource Manager: Signed BEDSIDE GLUCOSE Collected: 02/15/2018 Status: F Source: [place] 11:02 AM REPOSITORY TYPE CODE TESTS RESULT OUT OF REFERENCE UNITS RANGE LAB L501.080 70-110 mg/dL High BEDSIDE GLU 168 Result Comment: MANAGEMENT OF PATIENT CARE PER NURSING PROTOCOL Performed By: #### L501.080 #### [facility] Point [place] [address] CBC-COMPLETE BLOOD CNT Collected: 02/15/2018 Status: F Source: [place] NO DIFF 6:48 AM REPOSITORY TYPE CODE TESTS RESULT OUT OF RANGE REFERENCE UNITS LAB L100.1000 4.4-11.0 K/mm3 Normal WBC 10.8 LAB L100.1200 4.6-6.2 M/mm3 Low RBC 3.38 LAB L100.1300 13.0-16.5 g/dl Low HGB 10.3 LAB L100.1400 40-54 % Low HCT 31.3 LAB L100.1500 80-94 fL Normal MCV 92.6 LAB L100.1600 27.0-32.0 pg Normal MCH 30.5 LAB L100.1700 32-36 g/gl Normal MCHC 32.9 LAB L100.1810 11.6-14.6 % Normal RDW CV 13.3 LAB L100.1820 35.1-43.9 fl High RDW SD 44.3 LAB L100.1900 150-450 K/mm3 Normal PLT 152 LAB L100.2000 6.2-12.0 fl High MPV 12.5 Performed By: #### L100.0500 #### [facility] [address] [place], [place], [id number] BEDSIDE GLUCOSE Collected: 02/15/2018 Status: F Source: MAT[place]IAS 6:13 AM REPOSITORY TYPE CODE TESTS RESULT OUT OF REFERENCE UNITS RANGE LAB L501.080 70-110 mg/dL High BEDSIDE GLU 205 Result Comment: MANAGEMENT OF PATIENT CARE PER NURSING PROTOCOL Performed By: #### L501.080 #### [facility] Point of Care [address] [place], [place] [id number] BEDSIDE GLUCOSE Collected: 02/14/2018 Status: F Source: [place]AS 9:16 PM REPOSITORY TYPE CODE TESTS RESULT OUT OF REFERENCE UNITS RANGE LAB L501.080 70-110 mg/dL High BEDSIDE GLU 127 Result Comment: MANAGEMENT OF PATIENT CARE PER NURSING PROTOCOL Performed By: #### L501.080 #### [facility] Point of Care [address] [place] [address] BEDSIDE GLUCOSE Collected: 02/14/2018 Status: F Source: [place]AS 8:18 PM REPOSITORY TYPE CODE TESTS RESULT OUT OF REFERENCE UNITS RANGE LAB L501.080 70-110 mg/dL High BEDSIDE GLU 139 Result Comment: MANAGEMENT OF PATIENT CARE PER NURSING PROTOCOL Performed By: #### L501.080 #### [facility] Point of Care [address] [place] [address] BEDSIDE GLUCOSE Collected: 02/14/2018 Status: F Source: [place] 4:36 PM REPOSITORY TYPE CODE TESTS RESULT OUT OF REFERENCE UNITS RANGE LAB L501.080 70-110 mg/dL High BEDSIDE GLU 124 Result Comment: MANAGEMENT OF PATIENT CARE PER NURSING PROTOCOL Performed By: #### L501.080 #### [facility] Point of Care [address] [place] [address] OPERATIVE REPORT Observed: 02/14/2018 Status: F Source: [place] 3:53 PM REPOSITORY [facility] Medical Records Department [address] [place] [address] Operative Report 02/13/18 1722 MR#: [id number] Acct: [id number] Name: JHONNY GRIJALVA Rep #: [id number] : 1950 67 From: Steph Borrego MD PCP: Tanisha Rios MD Status: ADM IN Y Location: [facility] [id number] ADDENDUM by Steph Borrego MD on 02/14/18 at 1553 Code Visit My physician life enrichment assistant was a vital part of this case. He was important in appropriate retraction during the case, and protection of soft tissues during bony cuts. His intimate knowledge of the case and my steps aided in safe and expedient completion of the procedure as well as appropriate position of the leg during the case. He was also vital in assisting with closure under my direct supervision. 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 scissors grinder: Cesar Simpson Type of Anesthesia:: Spinal Anesthesiologist: Clarence Peters Special Medications: 2 g Ancef, 1 g TXA at incision, 1 g TXA closure, 10 mg Decadron, joint cocktail (5 mg Duramorph, 30 mL of 0.5% Ropivicaine, 1000 units of epinephrine, 30 mg of Toradol) Specimen's removed: 3 separate specimens were taken to microbiology Drains: Lateral Hemovac drain Estimated Blood Loss (mL): 125 mL Fluids Replaced: 2300 mL crystalloid Description of Procedure: 67 yo m history of L TKA presents with painful left total knee replacement. 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 Lab work was also consistent with aseptic loosening. Risks and benefits of the procedure were discussed with the patient including but not limited to blood loss, DVTs, PEs, neurovascular damage, infection, general risk of anesthesia including loss of life. Demonstrated understanding and was able to sign informed consent. On the date of procedure patient's L lower extremity was marked in the preoperative area. The patient was then taken back to the operating room where the patient was placed on the table in the supine position. All bony prominences were identified a well-padded. Anesthesia assumed control of the C-spine and airway and remained controlled throughout the remainder of the procedure. A tourniquet was placed on the operative thigh and the leg was prepped in a sterile fashion. The surgeon then scrubbed at this time .Upon reentering the room left lower extremity was draped in a standard orthopedic fashion. A timeout was then called and everyone agreed upon the side, the site, the procedure to be performed, patient's identity and antibiotics given. A midline skin incision was made and sharp dissection was taken down through skin subcutaneous tissue and fat. Appropriate flaps were elevated medially and laterally. His arthrotomy was identified and the standard medial parapatellar incision was made along with a quadriceps snip proximally and the patella was subluxed laterally. The standard deep MCL release was done. At this point an aggressive synovectomy commenced. Our attention was first turned towards the subpatellar pouch and all suspicious synovium and tissues were debrided. We then directed our attention towards medial lateral gutters were these tissues were aggressively debrided. Knee was then flexed up the polyethylene was removed. Once polyethylene was removed we did the remainder of the synovium in the medial and lateral gutters and along the lateral structures and MCL. We then debrided the posterior knee. Knee was flexed up and culture was taken from the femoral notch. And also there was a membrane beneath the tibial baseplate that was removed and sent for culture. He had completed our synovectomy and were happy with the joint. We then proceeded to the implant removal phase. The knee was flexed up and TPS saw and flexible osteotomes were used to break up the residual bone cement interface of the femoral component. This was done first lead and medially. After was done medially bone tamp was used to remove the implant from the end of the bone with minimal bone loss. Attention was then directed towards the tibia. Knee was first placed in extension and further releases were done in order to help deliver the tibia from the wound. Once the tibia was adequately delivered from the wound TPS saw and osteotome were used to break up the bone cement interface. Once this was done brought osteotomes were placed underneath the implant in a stacked fashion and the implant was removed from the wound. It should be noted that behind both implants were membranes consistent with aseptic loosening these were sent for culture as well. Should also be noted that both implants were loose upon removal. Also should be noted that when we opened up the arthrotomy the patella implant fell out of the wound literally. Knee was then placed in extension our attention was directed towards the patella. The patella was a thin wafer of bone this was also confirmed on the radiographs. At this point we do not feel would be appropriate to revise the patella and we elected to leave the patella and resurfaced. However patella did have a large lateral facet and on radiographs and upon direct visualization wrapped around the lateral femur. This facet was debrided along with a lateral release. Once this was done our attention was directed back towards the wound. We first reamed the femoral and tibial canals after removing cement. The femoral canal was reamed to 14 mm for 150 mm stem. Tibia was reamed to 15 mm and intramedullary reamer was left into place. We used the intramedullary cutting guide in order to make a cleanup cut on the top of the tibia. Cleanup cut was made perpendicular to the intramedullary reaming guide. Once this was done we then reamed for a size D cone. Once this was completed the trial cone was placed in the trial tibial baseplate was put in the appropriate rotation. Once the appropriate rotation was obtained the trial tibial baseplate was pinned into place and the keel punch was used to punch the keel. Once this was done the trial tibial implant was was impacted into place and our attention was directed towards the femur. Based on the previous implant size a size 6 trial tibial cutting guide was selected. Medial epicondyle was palpated and marked. The implant was impacted into place in order to set the joint line based on the trial cutting guide laser line. Trial cutting guide was then pinned into place and we trialed the polyethylene in place. This helped place the trial cutting guide in the appropriate rotation. With the knee flexed at 90 degrees we then pinned a second pin into the trial cutting guide. Once the knee was balanced using the trial cutting guide the distal cleanup cut and posterior cleanup cuts were made for 5 mm augments on all 4 areas. The trial femur was then assembled and impacted into place. With a trial femur in place and trial tibia in place the knee was well balanced with a 13 mm polyethylene. The patella tracked well at this time. Trial implants were removed and final implants were opened. 6 L of normal saline were irrigated throughout the wound and aqua Oswaldo was used to obtain hemostasis. Once the 6 L of low-pressure lavage were irrigated throughout the wound cement was mixed. Cement restrictor was placed in the tibia and the bone ends were dried appropriately. The tibial cone was impacted into place. Once the cement was ready the tibial canal was pressurized and the tibial component was impacted into place and excess cement was removed. Cement was then placed on the backside of the femoral component and the femoral component was impacted into place. Once the excess cement was removed and he was placed into extension. With the knee in extension cement was allowed to cure. After the cement cured tourniquet was let down and hemostasis was obtained. 2 g of TXA were lavaged to the wound for 1 minute. #2 FiberWire was used to repair the top corner of the arthrotomy as well as the quadriceps snip. The remainder of the arthrotomy was closed with #1 Vicryl. The remainder of the wound was closed in a layer rao fashion using #1 vicryl interrupted sutures for the arthrotomy, 2-0 interrupted Vicryl for the subcuticular layer and cait for final skin closure. A sterile compressive dressing was then placed. The patient was then awakened from anesthesia, transferred to the [facility] and transferred to the PACU for recovery. Post op plan Patient will be activity as tolerated with range of motion as tolerated. He is on Xarelto for DVT prophylaxis due to previous DVT. He will follow-up in the office in 2 weeks for a wound check. He will be on doxycycline for 2 weeks so we follow cultures. Grafts/Implants Used: Ghazala triathlon - Complications None - Admit VTE Documentation VTE Present on Admission: No VTE Mechan Device Prophylaxis: SCD's, Thigh High DUNIA Hose VTE Pharm Prophylaxis ordered?: Yes 02/13/18 1735 <Electronically signed by Steph Borrego MD> Date Steph Borrego MD CC: Scarlett Quezada; Steph Borrego MD; Tanisha Rios MD Signed BEDSIDE GLUCOSE Collected: 02/14/2018 Status: F Source: [place] 11:32 AM REPOSITORY TYPE CODE TESTS RESULT OUT OF REFERENCE UNITS RANGE LAB L501.080 70-110 mg/dL High BEDSIDE GLU 188 Result Comment: MANAGEMENT OF PATIENT CARE PER NURSING PROTOCOL Performed By: #### L501.080 #### [facility] Point of Care [address] [place], [place] [address] BEDSIDE GLUCOSE Collected: 02/14/2018 Status: F Source: [place] 6:28 AM REPOSITORY TYPE CODE TESTS RESULT OUT OF REFERENCE UNITS RANGE LAB L501.080 70-110 mg/dL High BEDSIDE GLU 173 Result Comment: MANAGEMENT OF PATIENT CARE PER NURSING PROTOCOL Performed By: #### L501.080 #### [facility] Point of Care [address] [place] [address] CBC-COMPLETE BLOOD CNT Collected: 02/14/2018 Status: F Source: [place] NO DIFF 6:14 AM REPOSITORY TYPE CODE TESTS RESULT OUT OF RANGE REFERENCE UNITS LAB L100.1000 4.4-11.0 K/mm3 Normal WBC 10.7 LAB L100.1200 4.6-6.2 M/mm3 Low RBC 3.50 LAB L100.1300 13.0-16.5 g/dl Low HGB 10.6 LAB L100.1400 40-54 % Low HCT 32.6 LAB L100.1500 80-94 fL Normal MCV 93.1 LAB L100.1600 27.0-32.0 pg Normal MCH 30.3 LAB L100.1700 32-36 g/gl Normal MCHC 32.5 LAB L100.1810 11.6-14.6 % Normal RDW CV 13.4 LAB L100.1820 35.1-43.9 fl High RDW SD 44.1 LAB L100.1900 150-450 K/mm3 Normal PLT 176 LAB L100.2000 6.2-12.0 fl High MPV 12.4 Performed By: #### L100.0500 #### [facility] [address] [place], [address] BASIC METABOLIC Collected: 02/14/2018 Status: F Source: [place] PROFILE (BMP) 6:14 AM REPOSITORY TYPE CODE TESTS RESULT OUT OF RANGE REFERENCE UNITS LAB L501.0100 74-106 mg/dL High GLU 180 Result Comment: Fasting Glucose result greater than or equal to 126 mg/dL suggests DIABETES MELLITUS per A.D.A. criteria. Please note revised GLUCOSE reference range effective 2017. LAB L501.1000 7-18 mg/dL High BUN 23 LAB L501.1100 0.70-1.30 mg/dL Normal CREAT,SERUM 1.11 Result Comment: The validity of the calculated GFR AND GFRAA in patients over 70 years has not been determined. Clinical correlation is essential. LAB L501.1110 >60 mL/min Normal EST GFR 70 Result Comment: Non- GFR Calc LAB L501.1115 >60 mL/min Normal EST GFR - AA 85 Result Comment: GFR Calc LAB L501.1255 ml/min Normal Estimated CRCL 60.38 LAB L501.1300 10-20 RATIO High BUN/CRE 20.7 LAB L501.2200 8.5-10 mg/dL Low .1 CA 8.0 LAB L501.5300 136-14 mmol/L Normal 5 NA 138 LAB L501.5600 3.5-5. mmol/L Normal 1 K 4.3 LAB L501.5900 98-107 mmol/L Normal CL 102 LAB L501.6100 21.0-3 mmol/L Normal 2.0 CO2 26.0 LAB L501.6200 5-15 Normal GAP 10 Performed By: #### L500.2500 #### [facility] [address] [place], [address] BEDSIDE GLUCOSE Collected: 02/13/2018 Status: F Source: [place] 9:35 PM REPOSITORY TYPE CODE TESTS RESULT OUT OF REFERENCE UNITS RANGE LAB L501.080 70-110 mg/dL High BEDSIDE GLU 303 Result Comment: MANAGEMENT OF PATIENT CARE PER NURSING PROTOCOL Performed By: #### L501.080 #### [facility] Point of Care [address] [place] [address] BEDSIDE GLUCOSE Collected: 02/13/2018 Status: F Source: [place] 6:44 PM REPOSITORY TYPE CODE TESTS RESULT OUT OF REFERENCE UNITS RANGE LAB L501.080 70-110 mg/dL High BEDSIDE GLU 307 Result Comment: MANAGEMENT OF PATIENT CARE PER NURSING PROTOCOL Performed By: #### L501.080 #### [facility] Point of Care [address] [place] [address] BEDSIDE GLUCOSE Collected: 02/13/2018 Status: F Source: [place] 4:29 PM REPOSITORY TYPE CODE TESTS RESULT OUT OF REFERENCE UNITS RANGE LAB L501.080 70-110 mg/dL High BEDSIDE GLU 272 Result Comment: MANAGEMENT OF PATIENT CARE PER NURSING PROTOCOL Performed By: #### L501.080 #### [facility] Point of Care [address] [place] [address] Observed: 02/13/2018 Status: F Source: [place] CULTURE, DEEP WOUND 2:17 PM REPOSITORY Order Date: 11/09/16 Comments: COLLECTED IN OR #1 SUPRAPATELLAR POUCH Gram Stain Gram Stain No White Blood Cells No organisms seen Wound Culture No growth aerobically. Cult, Anaerobic No growth in 5 days. Performed By: #### M100.1500 #### [facility] [address] [facility] [place], [address] Observed: 02/13/2018 Status: F Source: [place] CULTURE, DEEP WOUND 2:17 PM [facility] REPOSITORY Order Date: 11/09/16 Comments: COLLECTED IN OR #2- FEMORAL MEMBRANE Gram Stain Gram Stain No White Blood Cells No organisms seen Wound Culture No growth aerobically. Cult, Anaerobic No growth in 5 days. Performed By: #### M100.1500 #### [facility] [address] [place] [address]. [place], [address] Observed: 02/13/2018 Status: F Source: [place] CULTURE, DEEP WOUND 2:17 PM [facility] REPOSITORY Order Date: 11/09/16 Comments: COLLECTED IN OR #2- TIBIAL MEMBRANE Gram Stain Gram Stain No White Blood Cells No organisms seen Wound Culture No growth aerobically. Cult, Anaerobic No growth in 5 days. Performed By: #### M100.1500 #### [facility] [address] [place] [address]. [place], [address] AFB Observed: 02/13/2018 Status: F Source: [place] CULT/SMEAR [id number] 2:17 PM [facility] REPOSITORY Comments: COLLECTED IN OR #2- TIBIAL MEMBRANE Is this test to exclude patient from TB Isolation? N AFB Smear/Fluor TESTING PERFORMED AT [facility]. ORIGINAL REPORT ON FILE IN LAB CONTAINS ADDITIONAL TEST SITE INFORMATION. Smear, Acid Fast Tissue Grinding Smear: Negative AFB Cult TESTING PERFORMED AT [facility]. ORIGINAL REPORT ON FILE IN LAB CONTAINS ADDITIONAL TEST SITE INFORMATION. Culture, Acid Fast NO ACID-FAST BACILLI ISOLATED AFTER 6 WEEKS. Performed By: #### M100.3880, M600.1900 #### [facility] [address] [place], [address] Observed: 02/13/2018 Status: F Source: [place] LOOMIS FUNGUS W/ 2:17 PM [id number] REPOSITORY Comments: COLLECTED IN OR #2- TIBIAL MEMBRANE Is this test to exclude patient from TB Isolation? Teresa Cu,[id number] TESTING PERFORMED AT [facility]. ORIGINAL REPORT ON FILE IN LAB CONTAINS ADDITIONAL TEST SITE INFORMATION. CUF No yeast or mold isolated after [address] TESTING PERFORMED AT [facility]. ORIGINAL REPORT ON FILE IN LAB CONTAINS ADDITIONAL TEST SITE INFORMATION. Fungus Stain No yeast or mold observed. Performed By: #### M100.3880, M600.1900 #### [facility] [address] [place], [address] AFB Observed: 02/13/2018 Status: F Source: [place] CULT/SMEAR [id number] 2:17 PM [facility] REPOSITORY Comments: COLLECTED IN OR #1 SUPRAPATELLAR POUCH Is this test to exclude patient from TB Isolation? N AFB Smear/Fluor TESTING PERFORMED AT [facility]. ORIGINAL REPORT ON FILE IN LAB CONTAINS ADDITIONAL TEST SITE INFORMATION. Smear, Acid Fast Tissue Grinding Smear: Negative AFB Cult TESTING PERFORMED AT [facility]. ORIGINAL REPORT ON FILE IN LAB CONTAINS ADDITIONAL TEST SITE INFORMATION. Culture, Acid Fast NO ACID-FAST BACILLI ISOLATED AFTER 6 WEEKS. Performed By: #### M100.3880, M600.1900 #### [facility] [address] [place] [place], [address] Observed: 02/13/2018 Status: F Source: [place] LOOMIS, FUNGUS W/ 2:17 PM [id number] REPOSITORY Comments: COLLECTED IN OR #1 SUPRAPATELLAR POUCH Is this test to exclude patient from TB Isolation? N Cu,[id number] TESTING PERFORMED AT [facility]. ORIGINAL REPORT ON FILE IN LAB CONTAINS ADDITIONAL TEST SITE INFORMATION. CUF No yeast or mold isolated after [address] TESTING PERFORMED AT [facility]. ORIGINAL REPORT ON FILE IN LAB CONTAINS ADDITIONAL TEST SITE INFORMATION. Fungus Stain No yeast or mold observed. Performed By: #### M100.3880, M600.1900 #### [facility] [address] [place], [address] AFB Observed: 02/13/2018 Status: F Source: [place] KIRKLAND/SMEAR [id number] 2:17 PM REPOSITORY Comments: COLLECTED IN OR #2- FEMORAL MEMBRANE Is this test to exclude patient from TB Isolation? N AFB Smear/Fluor TESTING PERFORMED AT [facility]. ORIGINAL REPORT ON FILE IN LAB CONTAINS ADDITIONAL TEST SITE INFORMATION. Smear, Acid Fast Tissue Grinding Smear: Negative AFB Cult TESTING PERFORMED AT [facility]. ORIGINAL REPORT ON FILE IN LAB CONTAINS ADDITIONAL TEST SITE INFORMATION. Culture, Acid Fast NO ACID-FAST BACILLI ISOLATED AFTER 6 WEEKS. Performed By: #### M100.3880, M600.1900 #### [place] [facility] [address] [place], [address] Observed: 02/13/2018 Status: F Source: NEVILLE OSCAR W/ 2:17 PM [id number] REPOSITORY Comments: COLLECTED IN OR #2- FEMORAL MEMBRANE Is this test to exclude patient from TB Isolation? N Cu,[id number] TESTING PERFORMED AT [facility]. ORIGINAL REPORT ON FILE IN LAB CONTAINS ADDITIONAL TEST SITE INFORMATION. CUF No yeast or mold isolated after [address] TESTING PERFORMED AT [facility]. ORIGINAL REPORT ON FILE IN LAB CONTAINS ADDITIONAL TEST SITE INFORMATION. Fungus Stain No yeast or mold observed. Performed By: #### M100.3880, M600.1900 #### [facility] [address] [place], [address] KNEE 1 OR 2 VIEWS Observed: 02/13/2018 Status: F Source: [place] 12:31 PM [facility] REPOSITORY [facility] Imaging Services [address] [place] [address] Knee 1 or 2 Views MR#: [id number] Acct: [id number] Name: JHONNY GRIJALVA Rep #: [id number] : 1950 M 67 From: Nick Garcia MD PCP: Tanisha Rios MD Status: ADM IN Study: Knee 1 or 2 Views Date of Exam: 02/13/18 Exam# [id number] Ordering Dr: Steph Borrego MD STUDY: X-RAY - LEFT KNEE REASON FOR EXAM: Male, 67 years old. Postop knee replacement. TECHNIQUE: 2 view(s) of the knee. COMPARISON: None. Findings: There is a recent total knee arthroplasty. The femoral and tibial components appear in satisfactory position. There has been patellar resurfacing. There is a suprapatellar drain. The visualized femoral, tibial, and fibular shafts are unremarkable. RAD/Knee 1 or 2 Views IMPRESSION: Satisfactory appearance of a total knee arthroplasty. Electronically Signed: Nick Garcia MD at 19:07 EST , Service support , CC: Steph Borrego MD; Tanisha Rios MD Human Resource Manager: Signed BEDSIDE GLUCOSE Collected: 02/13/2018 Status: F Source: [place] 10:23 AM REPOSITORY TYPE CODE TESTS RESULT OUT OF REFERENCE UNITS RANGE LAB L501.080 70-110 mg/dL High BEDSIDE GLU 148 Result Comment: MANAGEMENT OF PATIENT CARE PER NURSING PROTOCOL Performed By: #### L501.080 #### [facility] [place] [address] CBC W/DIFF, AUTOMATED Collected: 01/24/2018 Status: F Source: [place] 9:50 AM REPOSITORY TYPE CODE TESTS RESULT OUT OF RANGE REFERENCE UNITS LAB L100.1000 4.4-11.0 K/mm3 Normal WBC 5.5 LAB L100.1200 4.6-6.2 M/mm3 Low RBC 4.31 LAB L100.1300 13.0-16.5 g/dl Normal HGB 13.0 LAB L100.1400 40-54 % Low HCT 39.7 LAB L100.1500 80-94 fL Normal MCV 92.1 LAB L100.1600 27.0-32.0 pg Normal MCH 30.2 LAB L100.1700 32-36 g/gl Normal MCHC 32.7 LAB L100.1810 11.6-14.6 % Normal RDW CV 13.5 LAB L100.1820 35.1-43.9 fl High RDW SD 44.6 LAB L100.1900 150-450 K/mm3 Normal PLT 228 LAB L100.2000 6.2-12.0 fl High MPV 12.4 LAB L100.2100 47-70 % Normal NEUT% 47.7 LAB L100.2200 19-41 % Normal LY% 39.4 LAB L100.2300 0-10 % Normal MONO% 5.1 LAB L100.2400 0-5 % High EO% 6.9 LAB L100.2500 0-1 % Normal BASO% 0.7 LAB L100.2550 0.0-0.9 % Normal IM GRAN % 0.200 Result Comment: IG% - Immature Granulocytes (promyelocytes, myelocytes and metamyelocytes) > 1% indicates that a LEFT SHIFT is Present. LAB L100.2620 2.0-7.7 X10 3/uL Normal Absolute Neut 2.6 LAB L100.2720 0.83-4.51 X10 3/ul Normal Absolute Lymph 2.16 Performed By: #### L100.0100 #### [facility] [address] [place], [address] HEMOGLOBIN A1C Collected: 01/24/2018 Status: F Source: [place] 9:50 AM REPOSITORY TYPE CODE TESTS RESULT OUT OF RANGE REFERENCE UNITS LAB L501.9985 4.2-6.3 % High HGB A1C 6.9 Performed By: #### L501.9985 #### [facility] [address] [place], [address] BASIC METABOLIC Collected: 01/24/2018 Status: F Source: [place] PROFILE (BMP) 9:50 AM REPOSITORY TYPE CODE TESTS RESULT OUT OF RANGE REFERENCE UNITS LAB L501.0100 74-106 mg/dL High GLU 123 Result Comment: Fasting Glucose result from 100 to 125 mg/dL suggests IMPAIRED HOMEOSTASIS per A.D.A. criteria. Please note revised GLUCOSE reference range effective 2017. LAB L501.1000 7-18 mg/dL Normal BUN 18 LAB L501.1100 0.70-1.30 mg/dL Normal CREAT,SERUM 1.03 Result Comment: The validity of the calculated GFR AND GFRAA in patients over 70 years has not been determined. Clinical correlation is essential. LAB L501.1110 >60 mL/min Normal EST GFR 76 Result Comment: Non- GFR Calc LAB L501.1115 >60 mL/min Normal EST GFR - AA 92 Result Comment: GFR Calc LAB L501.1255 ml/min Normal Estimated CRCL 65.07 LAB L501.1300 10-20 RATIO Normal BUN/CRE 17.5 LAB L501.2200 8.5-10 mg/dL Normal .1 CA 9.1 LAB L501.5300 136-14 mmol/L Normal 5 NA 140 LAB L501.5600 3.5-5. mmol/L Normal 1 K 4.4 LAB L501.5900 98-107 mmol/L Normal CL 106 LAB L501.6100 21.0-3 mmol/L Normal 2.0 CO2 27.0 LAB L501.6200 5-15 Normal GAP 7 Performed By: #### L500.2500 #### [facility]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 abdomen is incompletely included on today's portable exam with limi dunia ability to center due to the patient's size and portable imaging. No definite disproportionate bowel dilatation to suggest a focal obstruction is noted. There are degenerative changes in the spine and hips. IMPRESSION:Limited imaging. No acute process Interpreted By: Mere Pearson MD Preliminary Report By: Mere Pearson MD Electronically Signed By: Mere Pearson MD Dictated Date: 10/02/2017 11:48:57 AM Prelim Date: 10/02/2017 11:48:57 AM Sign Date: 10/02/2017 11:49:42 AM CBC Collected: 10/02/2017 Status: F Source: [facility] 5:11 AM [facility] REPOSITORY TYPE CODE TESTS RESULT OUT OF REFERENCE UNITS RANGE LAB WBC(LOINC) 4.50-10.80 10 3/mcL WBC 6.20 LAB RBCCT(LOINC 4.50-6.00 10 6/mcL ) Low RBC 4.12 LAB HGB(LOINC) 13.0-17.5 G/dL Low Hgb 12.7 LAB HCT(LOINC) 40.0-52.0 % Low Hct 37.0 LAB MCV(LOINC) 81.0-100.0 fL MCV 89.7 LAB MCH(LOINC) 27.0-33.0 pg MCH 30.8 LAB MCHC(LOINC) 32.0-36.0 G/dL MCHC 34.4 LAB RDW(LOINC) 11.5-15.5 % RDW 13.2 LAB PLT(LOINC) 150-450 10 3/mcL Platelet 194 LAB MPV(LOINC) 6.4-10.5 fL High MPV 10.8 Performed By: #### CBC, ADIFF, ANEU, BMP, MG, PHOS, GFR #### [address] [address] .AUTO DIFF Collected: 10/02/2017 Status: F Source: [facility] 5:11 AM [facility] REPOSITORY TYPE CODE TESTS RESULT OUT OF REFERENCE UNITS RANGE LAB MIAN(LOINC) 50.0-75.0 % Low Neutrophil % 44.1 LAB LYM(LOINC) 20.0-40.0 % Lymphocyte % 39.3 LAB MON(LOINC) 2.0-13.0 % Monocyte % 8.8 LAB EO(LOINC) 0.0-6.0 % High Eosinophil % 6.9 LAB BAS(LOINC) 0.0-2.5 % Basophil % 0.9 LAB ABLYM(LOIN 0.90-4.32 10 3/mcL C) Lymphocyte, 2.40 Absolute LAB ANAHY(LOINC 0.09-1.40 10 3/mcL ) Monocyte, 0.50 Absolute LAB AEOS(LOINC 0.00-0.65 10 3/mcL ) Eosinophil, 0.40 Absolute LAB ABAS(LOINC 0.00-0.27 10 3/mcL ) Basophil, 0.10 Absolute Performed By: #### CBC, ADIFF, ANEU, BMP, MG, PHOS, GFR #### [place] [address] .NEUABS Collected: 10/02/2017 Status: F Source: [facility] 5:11 AM [facility] REPOSITORY TYPE CODE TESTS RESULT OUT OF REFERENCE UNITS RANGE LAB ANEU(LOINC) 2.25-8.10 10 3/mcL Neutrophil, 2.80 Absolute Performed By: #### CBC, ADIFF, ANEU, BMP, MG, PHOS, GFR #### [address] [address] BMP Collected: 10/02/2017 Status: F Source: [facility] 5:11 AM [facility] REPOSITORY TYPE CODE TESTS RESULT OUT OF REFERENCE UNITS RANGE LAB GLU(LOINC) 82-115 mg/dL Glucose High Level 185 LAB NA(LOINC) 136-145 mEq/L Sodium Level 144 LAB K(LOINC) 3.5-5.0 mEq/L Potassium Level 4.1 LAB CL(LOINC) 98-110 mEq/L Chloride 106 LAB CO2(LOINC) 22-32 mEq/L CO2 28 LAB EBAL(LOINC 4.0-15.0 mEq/L ) Electrolyte Balance 10.0 LAB BUN(LOINC) 8.0-22.0 mg/dL BUN 12.0 LAB CRE(LOINC) 0.60-1.40 mg/dL Creatinine Lvl (s) 0.84 LAB BC(LOINC) 10.0-22.0 ratio BUN/Creatinine 14.3 Ratio LAB CA(LOINC) 8.4-10.1 mg/dL Calcium Lvl 9.1 Performed By: #### CBC, ADIFF, ANEU, BMP, MG, PHOS, GFR #### [place] [address] MG Collected: 10/02/2017 Status: F Source: [facility] 5:11 AM [facility] REPOSITORY TYPE CODE TESTS RESULT OUT OF REFERENCE UNITS RANGE LAB MG(LOINC) 1.6-2.4 mg/dL Magnesium Lvl 1.8 Performed By: #### CBC, ADIFF, ANEU, BMP, MG, PHOS, GFR #### [place] [address] PHOS Collected: 10/02/2017 Status: F Source: [facility] 5:11 AM [facility] REPOSITORY TYPE CODE TESTS RESULT OUT OF REFERENCE UNITS RANGE LAB PHOS(LOINC 2.5-4.5 mg/dL ) Phosphorus 2.8 Performed By: #### CBC, ADIFF, ANEU, BMP, MG, PHOS, GFR #### [address] [address] .GFR Collected: 10/02/2017 Status: F Source: [facility] 5:11 AM [facility] REPOSITORY TYPE CODE TESTS RESULT OUT OF REFERENCE UNITS RANGE LAB GFRAA(LOINC ml/min/1.73 ) sqm GFR >60 [place] Result Comment: GFR Population mean for , Non- Americans Ages 20-29 = 116 mL/min/1.73 sq.m. Ages 30-39 = 107 mL/min/1.73 sq.m. Ages 40-49 = 99 mL/min/1.73 sq.m. Ages 50-59 = 93 mL/min/1.73 sq.m. Ages 60-69 = 85 mL/min/1.73 sq.m. Ages 70+ = 75 mL/min/1.73 sq.m. Chronic Kidney Disease: Less than 60 mL/min/1.73 square meters End Stage Renal Disease: Less than 15 mL/min/1.73 square meters LAB GFRNO(LOINC) ml/min/1.73sqm GFR Non- >60 Result Comment: GFR Population mean for , Non- Americans Ages 20-29 = 116 mL/min/1.73 sq.m. Ages 30-39 = 107 mL/min/1.73 sq.m. Ages 40-49 = 99 mL/min/1.73 sq.m. Ages 50-59 = 93 mL/min/1.73 sq.m. Ages 60-69 = 85 mL/min/1.73 sq.m. Ages 70+ = 75 mL/min/1.73 sq.m. Chronic Kidney Disease: Less than 60 mL/min/1.73 square meters End Stage Renal Disease: Less than 15 mL/min/1.73 square meters Performed By: #### CBC, ADIFF, ANEU, BMP, MG, PHOS, GFR #### [place] [address] CBC Collected: 10/01/2017 Status: F Source: [facility] 4:38 AM [facility] REPOSIT[facility] TYPE CODE TESTS RESULT OUT OF REFERENCE UNITS RANGE LAB WBC(LOINC) 4.50-10.80 10 3/mcL WBC 5.60 LAB RBCCT(LOINC 4.50-6.00 10 6/mcL ) Low RBC 3.79 LAB HGB(LOINC) 13.0-17.5 G/dL Low Hgb 11.9 LAB HCT(LOINC) 40.0-52.0 % Low Hct 34.8 LAB MCV(LOINC) 81.0-100.0 fL MCV 91.6 LAB MCH(LOINC) 27.0-33.0 pg MCH 31.3 LAB MCHC(LOINC) 32.0-36.0 G/dL MCHC 34.2 LAB RDW(LOINC) 11.5-15.5 % RDW 13.5 LAB PLT(LOINC) 150-450 10 3/mcL Platelet 183 LAB MPV(LOINC) 6.4-10.5 fL MPV 10.4 Performed By: #### CBC, CMP, GFR, DIFF, MORPH #### [address] [address] CMP Collected: 10/01/2017 Status: F Source: [facility] 4:38 AM [facility] REPOSIT[facility] TYPE CODE TESTS RESULT OUT OF REFERENCE UNITS RANGE LAB GLU(LOINC) 82-115 mg/dL Glucose High Level 172 LAB NA(LOINC) 136-145 mEq/L Sodium Level 143 LAB K(LOINC) 3.5-5.0 mEq/L Potassium Level 4.5 LAB CL(LOINC) 98-110 mEq/L Chloride 105 LAB CO2(LOINC) 22-32 mEq/L CO2 29 LAB EBAL(LOINC 4.0-15.0 mEq/L ) Electrolyte Balance 9.0 LAB BUN(LOINC) 8.0-22.0 mg/dL BUN 13.0 LAB CRE(LOINC) 0.60-1.40 mg/dL Creatinine Lvl (s) 0.91 LAB BC(LOINC) 10.0-22.0 ratio BUN/Creatinine 14.3 Ratio LAB CA(LOINC) 8.4-10.1 mg/dL Calcium Lvl 8.6 LAB PROT(LOINC 6.0-8.5 G/dL ) Total Protein 6.0 LAB ALB(LOINC) 3.2-4.8 G/dL Albumin Level 3.2 LAB GLB(LOINC) 1.5-3.8 G/dL Globulin 2.8 LAB AG(LOINC) 0.9-1.6 ratio A/G Ratio 1.1 LAB BILT(LOINC 0.2-1.2 mg/dL ) Bili Total 0.7 LAB AP(LOINC) 38-126 U/L Alk Phos 41 LAB AST(LOINC) 8-34 U/L AST/SGOT 18 LAB ALT(LOINC) 12-55 U/L ALT/SGPT 31 Performed By: #### CBC, CMP, GFR, DIFF, MORPH #### [address] [address] .GFR Collected: 10/01/2017 Status: F Source: [facility] 4:38 AM [facility] REPOSIT[facility] TYPE CODE TESTS RESULT OUT OF REFERENCE UNITS RANGE LAB GFRAA(LOINC ml/min/1.73 ) sqm GFR >60 [place] Result Comment: GFR Population mean for , Non- Americans Ages 20-29 = 116 mL/min/1.73 sq.m. Ages 30-39 = 107 mL/min/1.73 sq.m. Ages 40-49 = 99 mL/min/1.73 sq.m. Ages 50-59 = 93 mL/min/1.73 sq.m. Ages 60-69 = 85 mL/min/1.73 sq.m. Ages 70+ = 75 mL/min/1.73 sq.m. Chronic Kidney Disease: Less than 60 mL/min/1.73 square meters End Stage Renal Disease: Less than 15 mL/min/1.73 square meters LAB GFRNO(LOINC) ml/min/1.73sqm GFR Non- >60 Result Comment: GFR Population mean for , Non- Americans Ages 20-29 = 116 mL/min/1.73 sq.m. Ages 30-39 = 107 mL/min/1.73 sq.m. Ages 40-49 = 99 mL/min/1.73 sq.m. Ages 50-59 = 93 mL/min/1.73 sq.m. Ages 60-69 = 85 mL/min/1.73 sq.m. Ages 70+ = 75 mL/min/1.73 sq.m. Chronic Kidney Disease: Less than 60 mL/min/1.73 square meters End Stage Renal Disease: Less than 15 mL/min/1.73 square meters Performed By: #### CBC, CMP, GFR, DIFF, MORPH #### [facility] [address] [place] [address] .MANUAL DIFF Collected: 10/01/2017 Status: F Source: [facility] 4:38 AM [facility] REPOSITORY TYPE CODE TESTS RESULT OUT OF REFERENCE UNITS RANGE LAB LIMIT(LOIN C) Cells Counted 100 LAB NEUM(LOINC 50.0-75.0 % ) Low Neutrophil %, 25.0 Manual LAB LYMM(LOINC 20.0-40.0 % ) High Lymphocyte %, 61.0 Manual LAB MONM(LOINC 2.0-13.0 % ) Monocyte %, Manual 7.0 LAB EOM(LOINC) 0.0-6.0 % Eosinophil %, 6.0 Manual LAB BASM(LOINC 0.0-2.5 % ) Basophil %, Manual 1.0 LAB ANEUM(LOIN 2.25-8.10 10 3/mcL C) Low Neutrophil, Abs 1.40 Manual LAB ABLYMM(REJI 0.90-4.32 10 3/mcL NC) Lymphocyte, Abs 3.41 Manual LAB AMONM(LOIN 0.09-1.40 10 3/mcL C) Monocyte, Abs 0.39 Manual LAB AEOSM(LOIN 0.00-0.65 10 3/mcL C) Eosinophil, Abs 0.34 Manual LAB ABASM(LOIN 0.00-0.27 10 3/mcL C) Basophil, Abs 0.06 Manual Performed By: #### CBC, CMP, GFR, DIFF, MORPH #### [place] [address] .MORPH Collected: 10/01/2017 Status: F Source: [facility] 4:38 AM [facility] REPOSIT[facility] TYPE CODE TESTS RESULT OUT OF REFERENCE UNITS RANGE LAB PLTE(LOINC) Platelet Normal Estimate LAB RBCM(LOINC) RBC Morph Normal Performed By: #### CBC, CMP, GFR, DIFF, MORPH #### [place] [address] EMERGENCY REPORT Observed: 10/01/2017 Status: F [facility] EM[facility]GENCY ROOM REPORT NAME ACCOUNT SEX AGE ADMIT DISCHARGE PT MED. RECORD# NUMBER DATE DATE TYPE ERB, JHONNY Carson [id number] M 67 09/29/17 09/30/17 [id number] ROOM: ER DATE OF : 1950 DICTATING PHYSICIAN: Neri Larkin CHIEF COMPLAINT: Epigastric pain. HISTORY OF PRESENT ILLNESS: This is a 67-year-old male who presents complaining of intermittent epigastric pain that has been present on and off for weeks. The patient reports the pain was particularly severe last night and today. He states that the pain is sharp and aching and radiates into the left chest. Nothing seems to make the pain better or worse. However, the patient does have some increased symptoms and some shortness of breath with walking. The patient has had decreased appetite and some nausea. No vomiting, diarrhea, dysuria, or hematuria. The patient has been to multiple doctor's offices recently without significant relief of his symptoms. He reports that he has taken a nitroglycerin and Gas-X and neither have affected things much. The patient did have a heart catheterization two weeks ago, however, the lesion was unstentable and was managed medically. The patient has had no recent travel or sick contacts. PAST MEDICAL HISTORY: Dementia, depression, CAD. PAST SURGICAL HISTORY: Heart catheterization and CABG. ALLERGIES: Hydrochlorothiazide, Actos, fentanyl and penicillins and pravastatin. SOCIAL HISTORY: The patient lives at home with his family. He is a nonsmoker. He does not use alcohol, smoke cigarettes or use illicit drugs. He is up to date on immunizations. PHYSICAL EXAMINATION: VITAL SIGNS: Blood pressure 174/92, pulse 63, respiratory rate 18, temperature 98.2, pulse oximetry 95% on room air. In general , the patient is alert, awake and in no acute distress. Head is normocephalic and atraumatic. Pupils are equal, round and reactive to light and accommodation. Extraocular muscles are intact. Mucous membranes are moist. Neck is supple. Trachea is midline. Cardio exam shows regular rate and rhythm. No murmurs appreciated. Lungs are clear to auscultation bilaterally. Abdomen is soft, nondistended. It is mildly tender to palpation in general. No rebound, guarding or rigidity. Extremities demonstrate no edema or gross deformities. Peripheral pulses are intact and equal bilaterally. Normal muscle strength and full range of motion. Motor and sensory are grossly intact. Appropriate mood and behavior. Page 1 of 2 J[facility]ONNY GRIJALVA Emergency Room Report DIAGNOSTIC DATA: EKG was obtained and shows some changes from his previous six months ago, but no acute ST elevation or depressions. Chest x-ray shows no acute findings. Lab work reveals an elevated troponin at 0.09. The rest of the labs are unremarkable. MEDICAL DECISION MAKING/EMERGENCY DEPARTMENT COURSE AND TREATMENT: The patient is afebrile, nontoxic and in no acute distress. The patient does have cardiac risk factors, however, he reports that these symptoms have been present for weeks at a time and nothing has changed significantly. Labs were obtained and the patient was given IV fluids, GI cocktail and morphine. The patient's pain was not improved much following treatment initially. He was given aspirin and trial of sublingual nitroglycerin with some improvement of his chest pain from a 6 down to a 5. The patient's blood pressure did drop some, so the third sublingual nitro was not given. I did speak with Dr. Magdaleno, who did not feel the patient would be best served by staying at [facility] as there is no Cardiology on the weekend. [facility] was contacted and the patient was accepted onto the Cardiology service. Nitro paste was placed on the patient's chest. Repeat troponin was 0.07. The patient has remained stable in the ED. DIAGNOSIS: 1. Chest pain. 2. Elevated troponin. PLAN/DISPOSITION: The patient was transferred to [facility]. At the time he left he had stable vital signs. Dictated By: Neri Larikn DO 09/30/17 00:33 JOB #: [id number] Transcribed By: ke 09/30/17 12:37 Electronically signed by: DR. NERI LARKIN D.O. 10/01/17 02:35 Page 2 of 2 JHONNY GRIJALVA Emergency Room Report TROPI Collected: 09/30/2017 Status: F Source: [facility] 9:14 AM [facility] REPOSITORY TYPE CODE TESTS RESULT OUT OF REFERENCE UNITS RANGE LAB TROPI(LOINC 0.000-0.040 ng/mL ) High Troponin I 0.052 Result Comment: Troponin I reference ranges (12/16/13): 0.00-0.040 ng/mL Negative and non-diagnostic. >0.040 ng/mL Consistent with cardiac damage, increased clinical risk and possibility of myocardial infarction. Serial measurements, a rise & fall in test results, clinical history, appropriate symptoms and/or ECG changes may help assess possibility of VT. *Other non-acute coronary syndrome conditions such as CHF, myocarditis, pulmonary emboli, sepsis and cardiac surgery could result in myocardial damage and increased troponin levels. Performed By: #### TROPI #### [address] [id number] MG Collected: 09/30/2017 Status: F Source: [facility] 7:36 AM [facility] REPOSITORY TYPE CODE TESTS RESULT OUT OF REFERENCE UNITS RANGE LAB MG(LOINC) 1.6-2.4 mg/dL Magnesium Lvl 1.8 Performed By: #### MG, PHOS, GFR, CBC, ADIFF, ANEU, CMP, PBNP, LIPID, A1C #### [address] [address] PHOS Collected: 09/30/2017 Status: F Source: [facility] 7:36 AM [facility] REPOSITORY TYPE CODE TESTS RESULT OUT OF REFERENCE UNITS RANGE LAB PHOS(LOINC 2.5-4.5 mg/dL ) Phosphorus 3.1 Performed By: #### MG, PHOS, GFR, CBC, ADIFF, ANEU, CMP, PBNP, LIPID, A1C #### [address] [address] .GFR Collected: 09/30/2017 Status: F Source: [facility] 7:36 AM [facility] REPOSITORY TYPE CODE TESTS RESULT OUT OF REFERENCE UNITS RANGE LAB GFRAA(LOINC ml/min/1.73 ) sqm GFR >60 [place] Result Comment: GFR Population mean for , Non- Americans Ages 20-29 = 116 mL/min/1.73 sq.m. Ages 30-39 = 107 mL/min/1.73 sq.m. Ages 40-49 = 99 mL/min/1.73 sq.m. Ages 50-59 = 93 mL/min/1.73 sq.m. Ages 60-69 = 85 mL/min/1.73 sq.m. Ages 70+ = 75 mL/min/1.73 sq.m. Chronic Kidney Disease: Less than 60 mL/min/1.73 square meters End Stage Renal Disease: Less than 15 mL/min/1.73 square meters LAB GFRNO(LOINC) ml/min/1.73sqm GFR Non- >60 Result Comment: GFR Population mean for , Non- Americans Ages 20-29 = 116 mL/min/1.73 sq.m. Ages 30-39 = 107 mL/min/1.73 sq.m. Ages 40-49 = 99 mL/min/1.73 sq.m. Ages 50-59 = 93 mL/min/1.73 sq.m. Ages 60-69 = 85 mL/min/1.73 sq.m. Ages 70+ = 75 mL/min/1.73 sq.m. Chronic Kidney Disease: Less than 60 mL/min/1.73 square meters End Stage Renal Disease: Less than 15 mL/min/1.73 square meters Performed By: #### MG, PHOS, GFR, CBC, ADIFF, ANEU, CMP, PBNP, LIPID, A1C #### [address] [address] CBC Collected: 09/30/2017 Status: F Source: [facility] 7:36 AM [facility] REPOSITORY TYPE CODE TESTS RESULT OUT OF REFERENCE UNITS RANGE LAB WBC(LOINC) 4.50-10.80 10 3/mcL WBC 5.50 LAB RBCCT(LOINC 4.50-6.00 10 6/mcL ) Low RBC 4.03 LAB HGB(LOINC) 13.0-17.5 G/dL Low Hgb 12.4 LAB HCT(LOINC) 40.0-52.0 % Low Hct 36.7 LAB MCV(LOINC) 81.0-100.0 fL MCV 91.2 LAB MCH(LOINC) 27.0-33.0 pg MCH 30.8 LAB MCHC(LOINC) 32.0-36.0 G/dL MCHC 33.8 LAB RDW(LOINC) 11.5-15.5 % RDW 13.4 LAB PLT(LOINC) 150-450 10 3/mcL Platelet 192 LAB MPV(LOINC) 6.4-10.5 fL MPV 10.4 Performed By: #### MG, PHOS, GFR, CBC, ADIFF, ANEU, CMP, PBNP, LIPID, A1C #### [address] [address] .AUTO DIFF Collected: 09/30/2017 Status: F Source: [facility] 7:36 AM [facility] REPOSIT[facility] TYPE CODE TESTS RESULT OUT OF REFERENCE UNITS RANGE LAB MIAN(LOINC) 50.0-75.0 % Low Neutrophil % 48.6 LAB LYM(LOINC) 20.0-40.0 % Lymphocyte % 34.3 LAB MON(LOINC) 2.0-13.0 % Monocyte % 8.0 LAB EO(LOINC) 0.0-6.0 % High Eosinophil % 8.1 LAB BAS(LOINC) 0.0-2.5 % Basophil % 1.0 LAB ABLYM(LOIN 0.90-4.32 10 3/mcL C) Lymphocyte, 1.90 Absolute LAB ANAHY(LOINC 0.09-1.40 10 3/mcL ) Monocyte, 0.40 Absolute LAB AEOS(LOINC 0.00-0.65 10 3/mcL ) Eosinophil, 0.40 Absolute LAB ABAS(LOINC 0.00-0.27 10 3/mcL ) Basophil, 0.10 Absolute Performed By: #### MG, PHOS, GFR, CBC, ADIFF, ANEU, CMP, PBNP, LIPID, A1C #### [place] [id number] .NEUABS Collected: 09/30/2017 Status: F Source: [facility] 7:36 AM [facility] REPOSIT[facility] TYPE CODE TESTS RESULT OUT OF REFERENCE UNITS RANGE LAB ANEU(LOINC) 2.25-8.10 10 3/mcL Neutrophil, 2.70 Absolute Performed By: #### MG, PHOS, GFR, CBC, ADIFF, ANEU, CMP, PBNP, LIPID, A1C #### [place] [address] CMP Collected: 09/30/2017 Status: F Source: [facility] 7:36 [facility] REPOSITORY TYPE CODE TESTS RESULT OUT OF REFERENCE UNITS RANGE LAB GLU(LOINC) 82-115 mg/dL Glucose High Level 182 LAB NA(LOINC) 136-145 mEq/L Sodium Level 141 LAB K(LOINC) 3.5-5.0 mEq/L Potassium Level 4.1 LAB CL(LOINC) 98-110 mEq/L Chloride 108 LAB CO2(LOINC) 22-32 mEq/L CO2 25 LAB EBAL(LOINC 4.0-15.0 mEq/L ) Electrolyte Balance 8.0 LAB BUN(LOINC) 8.0-22.0 mg/dL BUN 18.0 LAB CRE(LOINC) 0.60-1.40 mg/dL Creatinine Lvl (s) 0.80 LAB BC(LOINC) 10.0-22.0 ratio High BUN/Creatinine 22.5 Ratio LAB CA(LOINC) 8.4-10.1 mg/dL Calcium Lvl 8.7 LAB PROT(LOINC 6.0-8.5 G/dL ) Total Protein 6.3 LAB ALB(LOINC) 3.2-4.8 G/dL Albumin Level 3.4 LAB GLB(LOINC) 1.5-3.8 G/dL Globulin 2.9 LAB AG(LOINC) 0.9-1.6 ratio A/G Ratio 1.2 LAB BILT(LOINC 0.2-1.2 mg/dL ) Bili Total 0.7 LAB AP(LOINC) 38-126 U/L Alk Phos 46 LAB AST(LOINC) 8-34 U/L AST/SGOT 27 LAB ALT(LOINC) 12-55 U/L ALT/SGPT 32 Performed By: #### MG, PHOS, GFR, CBC, ADIFF, ANEU, CMP, PBNP, LIPID, A1C #### [address] [address] PBNP Collected: 09/30/2017 Status: F Source: [facility] 7:36 [facility] REPOSITORY TYPE CODE TESTS RESULT OUT OF REFERENCE UNITS RANGE LAB PBNP(LOINC) 0-900 pg/mL N-Terminal 414 proBNP Result Comment: NT-proBNP results of less than 300 pg/mL effectively rules out acute congestive heart failure with 99% negative predictive value. Performed By: #### MG, PHOS, GFR, CBC, ADIFF, ANEU, CMP, PBNP, LIPID, A1C #### [address] [address] LIPID Collected: 09/30/2017 Status: F Source: [facility] 7:36 [facility] REPOSITORY TYPE CODE TESTS RESULT OUT OF REFERENCE UNITS RANGE LAB CHOL(LOINC 50-199 mg/dL ) Cholesterol 197 Result Comment: Cholesterol Reference Interval: Less than 200 Desirable 200-239 Borderline high risk 240 and above High risk LAB TRIG(LOINC) 3-149 mg/dL Triglycerides High 201 Result Comment: Triglyceride Reference Interval: Less than 150 Normal 150-199 Borderline high risk 200-499 High risk 500 or higher Very high risk LAB HD(LOINC) 40-59 mg/dL HDL Cholesterol 54 Result Comment: HDL Reference Interval: Less than 40 Low - high risk 60 or above Optimal/lowers risk LAB LDL(LOINC) 0-129 mg/dL LDL Cholesterol 103 Result Comment: LDL is a calculated result and requires a 12-hr fast. LDL Reference Interval: Less than 100 Optimal 100-129 Near or above optimal 130-159 Borderline high risk 160-189 High risk 190 and above Very high risk Performed By: #### MG, PHOS, GFR, CBC, ADIFF, ANEU, CMP, PBNP, LIPID, A1C #### [facility] [address] [place] [address] A1C Collected: 09/30/2017 Status: F Source: [facility] 7:36 AM [facility] TYPE CODE TESTS RESULT OUT OF RANGE REFERENCE UNITS LAB A1C(LOINC) 4.0-6.0 % High Hgb A1c 8.0 Performed By: #### MG, PHOS, GFR, CBC, ADIFF, ANEU, CMP, PBNP, LIPID, A1C #### [facility] [address] [place] [address] TROPI Collected: 09/30/2017 Status: F Source: [facility] 7:36 AM [facility] REPOSITORY TYPE CODE TESTS RESULT OUT OF REFERENCE UNITS RANGE LAB TROPI(LOINC 0.000-0.040 ng/mL ) High Troponin I 0.061 Result Comment: Troponin I reference ranges (12/16/13): 0.00-0.040 ng/mL Negative and non-diagnostic. >0.040 ng/mL Consistent with cardiac damage, increased clinical risk and possibility of myocardial infarction. Serial measurements, a rise & fall in test results, clinical history, appropriate symptoms and/or ECG changes may help assess possibility of VT. *Other non-acute coronary syndrome conditions such as CHF, myocarditis, pulmonary emboli, sepsis and cardiac surgery could result in myocardial damage and increased troponin levels. Performed By: #### TROPI #### [address] [address] TROPONIN Collected: 09/30/2017 Status: F Source: [facility] 2:45 AM [facility] REPOSITORY TYPE CODE TESTS RESULT OUT OF REFERENCE UNITS RANGE LAB TROPONIN 0.00 - 0.05 ng/ml I(LOINC) High TROPONIN I 0.06 Result Comment: Elevated troponin (above the 99th percentile) usually indicates myocardial ischemia. Results must be interpreted within the clinical setting. 1.Non-ischemic pathology can also cause elevated troponin levels (e.g., acute pulmonary embolism, myocarditis, pericarditis, heart failure, intracranial injury, rhabdomyolisis, sepsis, shock and renal insufficiency). 2.Approximately 1% of healthy adults have elevated troponin levels. 3.Analytical false positive results rarely occur(due to multiple interferences such as heterophile antibodies). Performed By: #### [id number] #### [address] [address] TROPONIN Collected: 09/29/2017 Status: F Source: [facility] 10:51 PM [facility] REPOSITORY TYPE CODE TESTS RESULT OUT OF REFERENCE UNITS RANGE LAB TROPONIN 0.00 - 0.05 ng/ml I(LOINC) High Alert TROPONIN I 0.07 Result Comment: { CALLED TO ER AT 2338 RA 2336 { READ BACK BY Dontae MARIO TO DJB Elevated troponin (above the 99th percentile) usually indicates myocardial ischemia. Results must be interpreted within the clinical setting. 1.Non-ischemic pathology can also cause elevated troponin levels (e.g., acute pulmonary embolism, myocarditis, pericarditis, heart failure, intracranial injury, rhabdomyolisis, sepsis, shock and renal insufficiency). 2.Approximately 1% of healthy adults have elevated troponin levels. 3.Analytical false positive results rarely occur(due to multiple interferences such as heterophile antibodies). Performed By: #### [id number] #### [address] [address] CHEST 2 VIEWS Observed: 09/29/2017 Status: F Source: [facility] 8:16 PM [facility] REPOSITORY [place] [address] Patient: JHONNY GRIJALVA Phone#: : [phone] Age: 67 Gender: M Pt. Type: ER Account: [id number] Location: 052 Ordering: ENRI LARKIN Exam Date: 09/29/2017/19:56 Family Phys: LEILA RIOS Charge Code: [id number] Physician: [place] Order #: [id number] DLP Dose#: PROCEDURE: X-RAY CHEST 2 VIEWS COMPARISON: [facility], XR, CHEST AP, 03/12/2017, 0:06. INDICATIONS: Chest pain FINDINGS: LUNGS: Normal. No significant pulmonary parenchymal abnormalities. VASCULATURE: Normal. Unremarkable pulmonary vasculature. CARDIAC: Normal. No cardiac silhouette abnormality or cardiomegaly. MEDIASTINUM: Atherosclerotic aorta with no visible aneurysm. PLEURA: Normal. No effusion or pleural thickening. BONES: Normal. No fracture or visible bony lesion. OTHER: Sternotomy sutures are present. CONCLUSION: No acute disease. No significant change has occurred. Dictated by: Malgorzata Noland MD on 10/01/2017 at 23:16 Approved by: Malgorzata Noland MD on 10/01/2017 at 23:16 CBC Collected: 09/29/2017 Status: F Source: [facility] 7:45 PM [facility] REPOSITORY TYPE CODE TESTS RESULT OUT OF RANGE REFERENCE UNITS LAB CBC(LOINC) CBC Result Comment: CBC-COMPLETE BLOOD COUNT LAB WBC(LOINC) 4.5 - 10.8 x 10EE3/UL WBC 7.1 LAB RBC(LOINC) 4.50 - x 10EE6/UL 6.00 RBC Low 4.14 LAB HEMOGLOBIN(LOINC) 13.0 - g/dl 17.5 Low HEMOGLOBIN 12.9 LAB HEMATOCRIT(LOINC) 40.0 - % 52.0 Low HEMATOCRIT 37.1 LAB MCV(LOINC) 81 - 98 fl MCV 90 LAB MCH(LOINC) 27 - 33 pg MCH 31 LAB MCHC(LOINC) 32 - 36 X10 3 MCHC 35 LAB RDW/CV(LOINC) 12.0 - % 15.6 RDW/CV 13.6 LAB PLATELET(LOINC) 150 - 450 x10EE3/UL PLATELET 212 LAB MPV(LOINC) 6.4 - 10.5 fl MPV 10.5 Result Comment: AUTOMATED DIFFERENTIAL LAB NEUT %(LOINC) 46.0 - 76.0 % NEUT % 49.9 LAB LYMPH %(LOINC) 20.0 - 45.0 % LYMPH % 36.1 LAB MONOS %(LOINC) 0.0 - 10.0 % MONOS % 6.1 LAB EO %(LOINC) 0.0 - 7.0 % EO % 7.0 LAB BASO %(LOINC) 0.0 - 2.0 % BASO % 0.9 LAB Lymph #(LOINC) 0.80 - 2.80 x10EE3/U L Lymph # 2.60 LAB Neut #(LOINC) 1.50 - 7.10 x10EE3/U L Neut # 3.50 LAB [place] #(LOINC) 0.20 - 1.00 x10EE3/U L [place] # 0.40 LAB EO #(LOINC) 0.00 - 0.50 x10EE3/U L EO # 0.50 LAB Baso #(LOINC) 0.00 - 0.10 x10EE3/U L Baso # 0.10 LAB MANUAL DIFF(LOINC) MANUAL DIFF N/A LAB MORPHOLOGY(LOINC ) MORPHOLOGY N/A Result Comment: {CD] Performed By: #### [id number] #### [place] [address] URINALYSIS Collected: 09/29/2017 Status: F Source: [facility] 7:45 PM [facility] REPOSITORY TYPE CODE TESTS RESULT OUT OF REFERENCE UNITS RANGE LAB URINALYSIS (LOINC) URINALYSIS Result Comment: URINALYSIS LAB Specimen Type(LOINC) Specimen R Type LAB Color(LOINC) NORMAL: YELLOW Color kandy LAB Clarity(LOINC) NORMAL: CLEAR Clarity clear LAB ph(LOINC) NORMAL: 5.0-8.0 ph 5 LAB Protein(LOINC) NORMAL: NEGATIVE Protein NEG LAB Glucose(LOINC) NORMAL: NORMAL Glucose NORM LAB Ketone(LOINC) NORMAL: NEGATIVE Ketone NEG LAB Bilirubin(LOINC) NORMAL: NEGATIVE Bilirubin NEG LAB Blood(LOINC) NORMAL: NEGATIVE Blood NEG LAB Urobilinog(LOINC) NORMAL: NORMAL Urobilinog NORM LAB Sp [place](LOINC) NORMAL: 1.010-1.030 Sp [place] 1.020 LAB Nitrite(LOINC) NORMAL: NEGATIVE Nitrite NEG LAB Leukocytes(LOINC) NORMAL: NEGATIVE Leukocytes NEG LAB Microscopic(LOINC ) Microscopic NOT INDICATED Performed By: #### [id number] #### [place] [id number] TROPONIN Collected: 09/29/2017 Status: F Source: [facility] 7:45 PM [facility] REPOSITORY TYPE CODE TESTS RESULT OUT OF REFERENCE UNITS RANGE LAB TROPONIN 0.00 - 0.05 ng/ml I(LOINC) High Alert TROPONIN I 0.09 Result Comment: { CALLED TO ELLIOTT/TEVIN 2023 { READ BACK BY Elevated troponin (above the 99th percentile) usually indicates myocardial ischemia. Results must be interpreted within the clinical setting. 1.Non-ischemic pathology can also cause elevated troponin levels (e.g., acute pulmonary embolism, myocarditis, pericarditis, heart failure, intracranial injury, rhabdomyolisis, sepsis, shock and renal insufficiency). 2.Approximately 1% of healthy adults have elevated troponin levels. 3.Analytical false positive results rarely occur(due to multiple interferences such as heterophile antibodies). Performed By: #### [id number] #### [facility],[address] [place] [address] CMP WITH EGFR Collected: 09/29/2017 Status: F Source: [facility] 7:45 PM [facility] REPOSITORY TYPE CODE TESTS RESULT OUT OF RANGE REFERENCE UNITS LAB CMP with eGFR(LOINC) CMP with eGFR Result Comment: COMPREHENSIVE METABOLIC PANEL LAB SODIUM(LOINC) 136 - 145 mmol/l SODIUM 137 LAB POTASSIUM(LOINC) 3.5 - 5.1 mmol/L POTASSIUM 3.7 LAB CHLORIDE(LOINC) 98 - 107 mmol/L CHLORIDE 102 LAB CO2(LOINC) 21.0 - mmol/L 31.0 CO2 25.8 LAB GLUCOSE(LOINC) 74 - 106 mg/dl GLUCOSE High 113 LAB BUN(LOINC) 6 - 20 mg/dl BUN High 21 LAB CREATININE(LOINC) 0.7 - 1.3 mg/dl CREATININE 0.9 LAB AST/SGOT(LOINC) 13 - 39 U/L AST/SGOT 31 LAB ALK PHOS(LOINC) 38 - 126 U/L ALK PHOS 43 LAB CALCIUM(LOINC) 8.6 - mg/dl 10.2 CALCIUM 9.2 LAB TOTAL 6.4 - 8.3 g/dl PROTEIN(LOINC) TOTAL PROTEIN 6.6 LAB ALBUMIN(LOINC) 3.4 - 4.8 g/dL ALBUMIN 4.1 LAB GLOBULIN(LOINC) 1.5 - 3.8 G/DL GLOBULIN 2.5 LAB A/G RATIO(LOINC) 0.9 - 1.6 A/G RATIO 1.6 LAB TOTAL BILI(LOINC) 0.0 - 1.5 mg/dl TOTAL BILI 0.5 LAB B/C RATIO(LOINC) 0 - 30 ratio B/C RATIO 23 LAB ALT/SGPT(LOINC) 10 - 40 U/L ALT/SGPT 28 LAB ANION GAP(LOINC) 10 - 20 mmol/L ANION GAP 13 LAB AGE(LOINC) years AGE 67 LAB eGFR(LOINC) 60 - 999 ML/MINUTE eGFR >60 LAB eGFR(AA)(LOINC) 60 - 999 ML/MINUTE eGFR(AA) >60 Result Comment: ACCORDING TO THE NATIONAL KIDNEY DISEASE EDUCATION PROGRAM(NKDE), A NORMAL eGFR IS A VALUE GREATER THAN OR EQUAL TO 60 ML/MIN/1.73 SQ METERS. CHRONIC KIDNEY DISEASE: <60mL/MIN/1.73 SQ METERS KIDNEY FAILURE: <15mL/MIN/1.73 SQ METERS THIS TEST SHOULD ONLY BE USED FOR PATIENTS 18 YEARS OF AGE AND OLDER. Performed By: #### [id number] #### [place] [address] LIPASE Collected: 09/29/2017 Status: F Source: [facility] 7:45 PM [facility] REPOSITORY TYPE CODE TESTS RESULT OUT OF REFERENCE UNITS RANGE LAB LIPASE(LOIN 18.0 - 51.0 U/L C) High LIPASE 72.0 Performed By: #### [id number] #### [place] [address] CT THORAX W/ CONTRAST Observed: 09/25/2017 Status: F Source: [facility] 11:00 AM [facility] ORIGINAL CT THORAX W/ CONTRAST This exam was performed according to our departmental dose optimization program, and includes the following measures where applicable: automated exposure control, adjustment of the mAs and/or kVp accord ing to patient size and/or exam, and an iterative reconstruction algorithm. CLINICAL STATEMENT: CAD, HTN, DYSLIPIDEMIA, NON CARDIAC CHEST PAIN. COMPARISON: None FINDINGS: Lungs are clear. No pleural effusion. No suspicious pulmonary nodule. No mediastinal or hilar lymphadenopathy. There are coronary artery calcifications. Heart is at the upper limits of normal in size. No pericardial effusion. Prior median sternotomy is noted, sternal fragments are united, no abnormal fluid collections in the mediastinum. Thyroid gland is normal. There is scattered atheroscle rotic disease in the aorta and its branches, no aortic aneurysm. There is a chronic but not united LEFT posterior lateral 9th rib fracture. No other visible rib fractures. There is diffuse moderate spon dylotic change in the thoracic spine. No suspicious bone lesions. IMPRESSION: LEFT posterior lateral 9th rib fracture which is not united. This is of indeterminate clinical significance. Borderline cardiomegaly. 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 Interpreted By: Samy Medina MD Preliminary Report By: Samy Medina MD Electronically Signed By: Samy Medina MD Dictated Date: 09/26/2017 10:11:10 AM Prelim Date: 09/26/2017 10:11:10 AM Sign Date: 09/26/2017 10:14:52 AM CBC Collected: 09/11/2017 Status: F Source: [facility] 6:50 AM [facility] REPOSITORY TYPE CODE TESTS RESULT OUT OF REFERENCE UNITS RANGE LAB WBC(LOINC) 4.50-10.80 10 3/mcL WBC 6.20 LAB RBCCT(LOINC 4.50-6.00 10 6/mcL ) Low RBC 4.19 LAB HGB(LOINC) 13.0-17.5 G/dL Low Hgb 12.9 LAB HCT(LOINC) 40.0-52.0 % Low Hct 37.7 LAB MCV(LOINC) 81.0-100.0 fL MCV 89.9 LAB MCH(LOINC) 27.0-33.0 pg MCH 30.9 LAB MCHC(LOINC) 32.0-36.0 G/dL MCHC 34.4 LAB RDW(LOINC) 11.5-15.5 % RDW 13.5 LAB PLT(LOINC) 150-450 10 3/mcL Platelet 204 LAB MPV(LOINC) 6.4-10.5 fL MPV 10.2 Performed By: #### CBC, ADIFF, ANEU, BMP, GFR, PRO #### [place] [address] .AUTO DIFF Collected: 09/11/2017 Status: F Source: [facility] 6:50 AM [facility] REPOSITORY TYPE CODE TESTS RESULT OUT OF REFERENCE UNITS RANGE LAB MIAN(LOINC) 50.0-75.0 % Neutrophil % 50.4 LAB LYM(LOINC) 20.0-40.0 % Lymphocyte % 32.7 LAB MON(LOINC) 2.0-13.0 % Monocyte % 7.4 LAB EO(LOINC) 0.0-6.0 % High Eosinophil % 8.7 LAB BAS(LOINC) 0.0-2.5 % Basophil % 0.8 LAB ABLYM(LOIN 0.90-4.32 10 3/mcL C) Lymphocyte, 2.00 Absolute LAB ANAHY(LOINC 0.09-1.40 10 3/mcL ) Monocyte, 0.50 Absolute LAB AEOS(LOINC 0.00-0.65 10 3/mcL ) Eosinophil, 0.50 Absolute LAB ABAS(LOINC 0.00-0.27 10 3/mcL ) Basophil, 0.00 Absolute Performed By: #### CBC, ADIFF, ANEU, BMP, GFR, PRO #### [address] [address] .NEUABS Collected: 09/11/2017 Status: F Source: [facility] 6:50 AM [facility] REPOSITORY TYPE CODE TESTS RESULT OUT OF REFERENCE UNITS RANGE LAB ANEU(LOINC) 2.25-8.10 10 3/mcL Neutrophil, 3.10 Absolute Performed By: #### CBC, ADIFF, ANEU, BMP, GFR, PRO #### [place] [address] BMP Collected: 09/11/2017 Status: F Source: [facility] 6:50 AM [facility] REPOSITORY TYPE CODE TESTS RESULT OUT OF REFERENCE UNITS RANGE LAB GLU(LOINC) 82-115 mg/dL Glucose High Level 214 LAB NA(LOINC) 136-145 mEq/L Sodium Level 141 LAB K(LOINC) 3.5-5.0 mEq/L Potassium Level 4.2 LAB CL(LOINC) 98-110 mEq/L Chloride 106 LAB CO2(LOINC) 22-32 mEq/L CO2 28 LAB EBAL(LOINC 4.0-15.0 mEq/L ) Electrolyte Balance 7.0 LAB BUN(LOINC) 8.0-22.0 mg/dL BUN 14.0 LAB CRE(LOINC) 0.60-1.40 mg/dL Creatinine Lvl (s) 0.81 LAB BC(LOINC) 10.0-22.0 ratio BUN/Creatinine 17.3 Ratio LAB CA(LOINC) 8.4-10.1 mg/dL Calcium Lvl 8.8 Performed By: #### CBC, ADIFF, ANEU, BMP, GFR, PRO #### [address] [address] .GFR Collected: 09/11/2017 Status: F Source: [facility] 6:50 AM [facility] REPOSITORY TYPE CODE TESTS RESULT OUT OF REFERENCE UNITS RANGE LAB GFRAA(LOINC ml/min/1.73 ) sqm GFR >60 [place] Result Comment: GFR Population mean for , Non- Americans Ages 20-29 = 116 mL/min/1.73 sq.m. Ages 30-39 = 107 mL/min/1.73 sq.m. Ages 40-49 = 99 mL/min/1.73 sq.m. Ages 50-59 = 93 mL/min/1.73 sq.m. Ages 60-69 = 85 mL/min/1.73 sq.m. Ages 70+ = 75 mL/min/1.73 sq.m. Chronic Kidney Disease: Less than 60 mL/min/1.73 square meters End Stage Renal Disease: Less than 15 mL/min/1.73 square meters LAB GFRNO(LOINC) ml/min/1.73sqm GFR Non- >60 Result Comment: GFR Population mean for , Non- Americans Ages 20-29 = 116 mL/min/1.73 sq.m. Ages 30-39 = 107 mL/min/1.73 sq.m. Ages 40-49 = 99 mL/min/1.73 sq.m. Ages 50-59 = 93 mL/min/1.73 sq.m. Ages 60-69 = 85 mL/min/1.73 sq.m. Ages 70+ = 75 mL/min/1.73 sq.m. Chronic Kidney Disease: Less than 60 mL/min/1.73 square meters End Stage Renal Disease: Less than 15 mL/min/1.73 square meters Performed By: #### CBC, ADIFF, ANEU, BMP, GFR, PRO #### [place] [address] PRO Collected: 09/11/2017 Status: F Source: [facility] 6:50 AM [facility] REPOSITORY TYPE CODE TESTS RESULT OUT OF REFERENCE UNITS RANGE LAB PT(LOINC) 9.0-14.5 seconds Protime 11.0 Result Comment: Effective 10/23/07, Protime results may be affected by some antibiotics (i.e. Ciprofloxacin, Azithromycin, Bactrim) which may potentiate the action of oral anticoagulants, with further increases in Protime/INR. LAB INR(LOINC) ratio PT International Ratio 1.0 Result Comment: The [place] [employer] (CHEST, 1991, 102:312S-25S) recommended therapeutic range for oral anticoagulant therapy is: LOW RISK: Prophylaxis of venous thrombosis INR: 2.0-3.0 Treatment of pulmonary embolism 2.0-3.0 Prevention of systemic embolism 2.0-3.0 HIGH RISK: Mechanical prosthetic valves 2.5-3.5 Performed By: #### CBC, ADIFF, ANEU, BMP, GFR, PRO #### [address] [address] CBC W/DIFF, AUTOMATED Collected: 09/02/2017 Status: F Source: [facility] 9:35 AM REPOSITORY TYPE CODE TESTS RESULT OUT OF RANGE REFERENCE UNITS LAB L100.1000 4.4-11.0 K/mm3 Normal WBC 6.5 LAB L100.1200 4.6-6.2 M/mm3 Low RBC 4.20 LAB L100.1300 13.0-16.5 g/dl Normal HGB 13.0 LAB L100.1400 40-54 % Low HCT 38.5 LAB L100.1500 80-94 fL Normal MCV 91.7 LAB L100.1600 27.0-32.0 pg Normal MCH 31.0 LAB L100.1700 32-36 g/gl Normal MCHC 33.8 LAB L100.1810 11.6-14.6 % Normal RDW CV 13.5 LAB L100.1820 35.1-43.9 fl High RDW SD 44.4 LAB L100.1900 150-450 K/mm3 Normal PLT 223 LAB L100.2000 6.2-12.0 fl High MPV 12.1 LAB L100.2100 47-70 % Low NEUT% 43.4 LAB L100.2200 19-41 % Normal LY% 39.7 LAB L100.2300 0-10 % Normal MONO% 7.5 LAB L100.2400 0-5 % High EO% 8.4 LAB L100.2500 0-1 % Normal BASO% 0.8 LAB L100.2550 0.0-0.9 % Normal IM GRAN % 0.200 Result Comment: IG% - Immature Granulocytes (promyelocytes, myelocytes and metamyelocytes) > 1% indicates that a LEFT SHIFT is Present. LAB L100.2620 2.0-7.7 X10 3/uL Normal Absolute Neut 2.8 LAB L100.2720 0.83-4.51 X10 3/ul Normal Absolute Lymph 2.59 Performed By: #### L100.0100, L101.9900 #### [facility] [address] [place], [address] ERYTHROCYTE SED RATE Collected: 09/02/2017 Status: F Source: [facility] 9:35 AM REPOSITORY TYPE CODE TESTS RESULT OUT OF RANGE REFERENCE UNITS LAB L102.0000 0-20 mm/hr Normal SED RATE 5 Performed By: #### L100.0100, L101.9900 #### [facility] [address] [place], [address] CRP Collected: 09/02/2017 Status: F Source: [facility] 9:35 AM REPOSITORY TYPE CODE TESTS RESULT OUT OF RANGE REFERENCE UNITS LAB L501.6710 0.0-3.0 mg/L Normal < 2.90 C-REACTIVE PROT Result Comment: C-Reactive Protein (CRP) provides useful information for the diagnosis, therapy and monitoring of inflammatory processes and associated diseases. For the evaluation of Relative Risk for Cardiovascular Disease, a High Sensitivity CRP (HSCRP) should be ordered. Performed By: #### L501.6710 #### [facility] [address] [place], [address] HEMOGLOBIN A1C Collected: 09/02/2017 Status: F Source: [facility] 9:35 AM REPOSITORY TYPE CODE TESTS RESULT OUT OF RANGE REFERENCE UNITS LAB L501.9985 4.2-6.3 % High HGB A1C 8.0 Performed By: #### L501.9985 #### [facility] [address] [place], [address] SYNOVIAL FLUID RBC, Collected: 09/02/2017 Status: F Source: [facility] WBC AND DIFF 9:00 AM REPOSITORY TYPE CODE TESTS RESULT OUT OF RANGE REFERENCE UNITS LAB L200.4600 Normal SYNOVIAL SITE NOT SOURCE GIVEN LAB L200.4900 Pale Yellow Normal SYNOVIAL COLOR Red LAB L200.5000 CLEAR Normal SYNOVIAL BONITA. Cloudy LAB L200.5050 0.000-0.000 10 3 uL High SYN Tot Cell 0.3350 Ct Result Comment: This is the Total Number of Nucleated Cell Types in the Body Fluid. LAB L200.5100 0 10 6/uL High SYNOVIAL RBC 0.089 LAB L200.5200 0.000-0 10 3uL High .002 SYNOVIAL WBC 0.3140 LAB L200.5260 % SYBF PMN Normal WBC% 57.6 LAB L200.5270 10 3/ul SYBF PMN Normal WBC# 0.181 LAB L200.5280 % SYBF MN Normal WBC% 42.4 LAB L200.5800 PATH Normal COM/SYFL May follow LAB L200.5300 0-25 % High NEUTROPHIL 45 LAB L200.5400 % LYMPH Normal 34 LAB L200.5500 % MONO Normal 16 LAB L200.5700 % OTHER CELL Normal /SYN 5 Performed By: #### L200.0400, L200.4175 #### [facility] [address] [place], [place], [address] CRYSTALS, BODY FLUID Collected: 09/02/2017 Status: C Source: MAT[facility]AS 9:00 AM REPOSITORY TYPE CODE TESTS RESULT OUT OF RANGE REFERENCE UNITS LAB L200.4200 Normal Other, see CRYSTALS/BF comment Result Comment: NON-DESCRIPT CRYSTAL NOTED. TO BE REVIEWED BY PATHOLOGIST. LAB L200.4225 Normal SOURCE/BF SYNOVIAL LAB L200.6020 Normal PATH REV Reviewed Result Comment: Negative for malignant cells. A few nondescript crystals are noted. Abimael Bradley M.D. 09/05/17 AMENDED REPORT 09/05/17 1405 PATH REV previously reported as: Will follow Performed By: #### L200.0400, L200.4175 #### [facility] [address] [place], [place], [address] Observed: 09/02/2017 Status: F Source: [facility]AS CULTURE, BODY FLUID 9:00 AM REPOSITORY List Antibiotics Last 48 Hours? UNK List Antibiotics to be Started? UNK Comments: SYNOVIAL Gram Stain Centrifuged Specimen? Unable to centrifuge specimen due to insufficient volume. Gram Stain 4+ Red Blood Cells No White Blood Cells No organisms seen Body Fluid Cult NO GROWTH IN 14 DAYS Cult, Anaerobic No growth in 5 days. Performed By: #### M100.1300 #### [facility] [address] KATI Rizzo, [id number] Observed: 09/02/2017 Status: F Source: MATTHIAS LOOMIS, FUNGUS W/ 9:00 AM [id number] REPOSITORY Cu,[id number] TESTING PERFORMED AT [facility]. ORIGINAL REPORT ON FILE IN LAB CONTAINS ADDITIONAL TEST SITE INFORMATION. CUF No yeast or mold isolated after [address] TESTING PERFORMED AT [facility]. ORIGINAL REPORT ON FILE IN LAB CONTAINS ADDITIONAL TEST SITE INFORMATION. Fungus Stain No yeast or mold observed. Performed By: #### M600.1900 #### [facility] [address] [place], [place] [address]jean pierre [address]. KATI Rizzo, [address] VIDH Collected: 08/19/2017 Status: F Source: [facility] 10:49 AM [facility] REPOSITORY TYPE CODE TESTS RESULT OUT OF RANGE REFERENCE UNITS LAB VIDH(LOINC) ng/mL Vit. D 36 25-Hydroxy Result Comment: Interpretive Values Based on Total 25(OH)D: Severe Deficiency <20 ng/mL Mild to Moderate Deficiency 20-30 ng/mL Optimum Levels 30-100 ng/mL Toxicity Possible >100 ng/mL Performed By: #### VIDH, TSH, CMP, GFR, A1C #### [facility] [address] [place] [address] TSH Collected: 08/19/2017 Status: F Source: [facility] 10:49 AM [facility] REPOSITORY TYPE CODE TESTS RESULT OUT OF RANGE REFERENCE UNITS LAB TSH(LOINC) 0.360-3.740 mcIU/mL TSH 1.350 Result Comment: Please note ? as of 10/22/16 new pediatric reference intervals were added for this test. Performed By: #### VIDH, TSH, CMP, GFR, A1C #### [address] [address] CMP Collected: 08/19/2017 Status: F Source: [facility] 10:49 AM [facility] REPOSITORY TYPE CODE TESTS RESULT OUT OF REFERENCE UNITS RANGE LAB GLU(LOINC) 82-115 mg/dL Glucose High Level 262 LAB NA(LOINC) 136-145 mEq/L Sodium Level 140 LAB K(LOINC) 3.5-5.0 mEq/L Potassium Level 4.3 LAB CL(LOINC) 98-110 mEq/L Chloride 102 LAB CO2(LOINC) 22-32 mEq/L CO2 27 LAB EBAL(LOINC 4.0-15.0 mEq/L ) Electrolyte Balance 11.0 LAB BUN(LOINC) 8.0-22.0 mg/dL BUN 18.0 LAB CRE(LOINC) 0.60-1.40 mg/dL Creatinine Lvl (s) 0.80 LAB BC(LOINC) 10.0-22.0 ratio High BUN/Creatinine 22.5 Ratio LAB CA(LOINC) 8.4-10.1 mg/dL Calcium Lvl 9.1 LAB PROT(LOINC 6.0-8.5 G/dL ) Total Protein 7.4 LAB ALB(LOINC) 3.2-4.8 G/dL Albumin Level 4.2 LAB GLB(LOINC) 1.5-3.8 G/dL Globulin 3.2 LAB AG(LOINC) 0.9-1.6 ratio A/G Ratio 1.3 LAB BILT(LOINC 0.2-1.2 mg/dL ) Bili Total 1.1 LAB AP(LOINC) 38-126 U/L Alk Phos 59 LAB AST(LOINC) 8-34 U/L AST/SGOT 28 LAB ALT(LOINC) 12-55 U/L ALT/SGPT 32 Performed By: #### ZACKARY, TSH, CMP, GFR, A1C #### [address] [address] .GFR Collected: 08/19/2017 Status: F Source: [facility] 10:49 AM [facility] REPOSITORY TYPE CODE TESTS RESULT OUT OF REFERENCE UNITS RANGE LAB GFRAA(LOINC ml/min/1.73 ) sqm GFR >60 [place] Result Comment: GFR Population mean for , Non- Americans Ages 20-29 = 116 mL/min/1.73 sq.m. Ages 30-39 = 107 mL/min/1.73 sq.m. Ages 40-49 = 99 mL/min/1.73 sq.m. Ages 50-59 = 93 mL/min/1.73 sq.m. Ages 60-69 = 85 mL/min/1.73 sq.m. Ages 70+ = 75 mL/min/1.73 sq.m. Chronic Kidney Disease: Less than 60 mL/min/1.73 square meters End Stage Renal Disease: Less than 15 mL/min/1.73 square meters LAB GFRNO(LOINC) ml/min/1.73sqm GFR Non- >60 Result Comment: GFR Population mean for , Non- Americans Ages 20-29 = 116 mL/min/1.73 sq.m. Ages 30-39 = 107 mL/min/1.73 sq.m. Ages 40-49 = 99 mL/min/1.73 sq.m. Ages 50-59 = 93 mL/min/1.73 sq.m. Ages 60-69 = 85 mL/min/1.73 sq.m. Ages 70+ = 75 mL/min/1.73 sq.m. Chronic Kidney Disease: Less than 60 mL/min/1.73 square meters End Stage Renal Disease: Less than 15 mL/min/1.73 square meters Performed By: #### ZACKARY, TSH, CMP, GFR, A1C #### [address] [address] A1C Collected: 08/19/2017 Status: F Source: [facility] 10:49 AM [facility] REPOSITORY TYPE CODE TESTS RESULT OUT OF RANGE REFERENCE UNITS LAB A1C(LOINC) 4.0-6.0 % High Hgb A1c 7.8 Performed By: #### VIDH, TSH, CMP, GFR, A1C #### [address] [address] ALLERGIES ALLERGIES DATE TYPE / CODE NAME / CODE REACTION SEVERITY SOURCE 03/29/2018 Drug Penicillins/ Swelling Unknown [facility]160 [id number]( Hospital [address](SNOMED XNORM) Repository CT) 03/29/2018 Drug hydrochlorot Unknown Unknown [facility] Allergy/4160 hiazide/F006 Hospital [facility](SNOMED 596513(RXNOR Repository CT) M) 03/29/2018 Drug pravastatin/ Pain in joints Unknown [place] [facility] Allergy/4160 [id number](R Hospital [facility](SNOMED XNORM) Repository CT) 03/29/2018 Drug pioglitazone Unknown Unknown [place] [facility] Allergy/4160 /[id number]( Hospital [facility](SNOMED RXNORM) Repository CT) 03/29/2018 Drug oxycodone/F0 Other Unknown [facility] Allergy/4160 [id number](RX Hospital [address]55(SNOMED ORM) Repository CT) 02/15/2018 Drug tramadol/F00 Other Unknown [facility] Allergy/4160 1443597(RX Hospital [address]282(SNOMED RM) Repository CT) Drug PCN RASH Moderate [place] Allergy/4160 (penicillin) ([place] 8780202(SNOMED /79824782(RX Modifier) Repository CT) NORM) (Qualifier Value) Drug HYDROCHLOROT Moderate [place] Allergy/4160 HIAZIDE/0000 ([place] [address](SNOMED 0309(RXNORM) Modifier) Repository CT) (Qualifier Value) Drug FENTANYL/000 Moderate [place] Allergy/4160 31637(RXNORM ([place] [address](SNOMED ) Modifier) Repository CT) (Qualifier Value) Drug PRAVASTATIN/ Moderate [place] Allergy/4160 68484353(RXN ([place] [address](SNOMED ORM) Modifier) Repository CT) (Qualifier Value) Drug ACTOS/589556 Moderate [place] Allergy/4160 36(RXNORM) ([facility] [address](SNOMED Modifier) Repository CT) (Qualifier Value) ENCOUNTERS ENCOUNTERS ADMIT/DISCHARGE ACCOUNT NUMBER ADMITTING ENCOUNTER LOCATION SOURCE CLASS 04/25/2018 [id number] Ambulatory [facility] ding:MTLAB Repository 03/29/2018/ [id number] Ambulatory BMSBuilding: [facility]ias 018 BMS.[facility] Repository 03/14/2018/ [id number] Bandar Farah Inpatient [facility] [place] 018 Encounter [facility] ding:ICURoom Repository : [id number]: 1 03/14/2018 [id number] Bandar Farah Ambulatory BMSBuilding: Mat[facility]ias BMS.[facility] Repository 03/14/2018 [id number] Bandar Farah Ambulatory BMSBuilding: [place] BMS..[facility] Repository 03/14/2018 [id number] Bandar Farah Ambulatory BMSBuilding: [facility]ias BMS.[facility] Repository 03/14/2018/ [id number] Ambulatory BMSBuilding: Mat[facility]ias 018 BMS.[facility] Repository 03/13/2018 [id number] Bandar Farah Ambulatory BMSBuilding: [facility]ias BMS.CF.[facility] Repository 03/13/2018 [id number] Bandar Farah Ambulatory BMSBuilding: [facility]ias BMS.[facility] Repository 03/13/2018 [id number] Bandar Farah Ambulatory BMSBuilding: [place] BMS.[facility] Repository 03/13/2018 [id number] Bandar Farah Ambulatory BMSBuilding: [facility]ias BMS.[facility] Repository 03/07/2018 [id number] Ambulatory UNIBuilding: [facility] Repository 02/20/2018 [id number] Ambulatory BMSBuilding: [place] [facility] Repository 02/13/2018/ [id number] Urszula, Inpatient [place] 018 Steph Encounter [facility] ding:PCURoom Repository : QRX321Smh: 1 02/13/2018 [id number] Urszula, Ambulatory BMSBuilding: [place] BMS.[facility] Repository 02/13/2018 [id number] Urszula, Ambulatory BMSBuilding: [place] BMS.[facility] Repository 02/13/2018 [id number] Urszula, Ambulatory BMSBuilding: [place] BMS.[facility] Repository 02/13/2018 [id number] Urszula, Ambulatory BMSBuilding: [place] BMS.[facility] Repository 02/13/2018 [id number] Urszula, Ambulatory BMSBuilding: [facility] [place] BMS.[facility] Repository 02/13/2018 [id number] Urszula, Ambulatory BMSBuilding: [facility] [place] BMS.CF.[facility] Repository 02/13/2018 [id number] Urszula, Ambulatory BMSBuilding: [place] BMS.[facility] Repository 02/13/2018 [id number] Urszula, Ambulatory BMSBuilding: [facility] [place] BMS.[facility] Repository 02/13/2018 [id number] Urszula, Ambulatory BMSBuilding: [facility] [place] BMS..[facility] Repository 02/13/2018 [id number] Urszula, Ambulatory BMSBuilding: [place] BMS.[facility] Repository 02/13/2018 [id number] Urszula, Ambulatory BMSBuilding: [facility] [place] BMS.[facility] Repository 02/13/2018/ [id number] Ambulatory BMSBuilding: [place] [address] [facility] Repository 12/20/2017 [id number] Ambulatory [facility] ding:MTLAB Repository 12/12/2017/ [id number] Ambulatory NEEUT Adler [facility] WBuilding:[facility] Repository 10/17/2017 [id number] Urszula, Ambulatory [facility] ding:SDC Repository 09/30/2017/ [id number] NIDAMANURI Inpatient ABuilding:EVARISTO Adler MD, FRANK Rodriguez URoom: Health 0349Bed: A [facility] Repository 09/29/2017/ [id number] TRAE, Emergency Buildin[address] [place] [address] 018 NERI DO Room: ERBed: [facility] Repository 09/25/2017 [id number] Ambulatory BBuilding:OP [facility] Repository 09/25/2017 [id number] Ambulatory BBuilding:OS [facility] Repository 09/25/2017/ [id number] Ambulatory CAROL [place] [address] [facility] ding:RAD Foundation Repository 09/11/2017/ [id number] Ambulatory ABuilding:SD Carol 018 CCRoom: Health 0004Bed: A Foundation Repository 09/02/2017 [id number] Ambulatory [facility] ding:LAB Repository 08/22/2017 [id number] Ambulatory [facility] ding:SDC Repository 08/19/2017/ [id number] Ambulatory [place] 018 [facility] WBuilding:[facility] [address] Repository PAYERS PAYERS ENCOUNTER GUARANTOR PAYER SUBSCRIBER SOURCE 04/25/2018 JHONNY GRIJALVA7640 Primary JHONNY CRUZB: Matthias [place] Insurance:MEDICARE [id number] [facility] BPolicy Number: [place], [place] [address]Ymd: [id number] Repository Date:2018-04-25 () 04/25/2018 Secondary JHONNY CHO: Matthias Insurance:MEDICAIDPoli [id number] [facility], [facility]1983 cy Number: Hospital [id number] Repository Date:2018-04-25 04/25/2018 Tertiary NOT GIVENUNK Mat[facility] Insurance:SELF PAY [facility] Effective Repository Date:2018-04-25 03/29/2018 JHONNY GRIJALVA7640 Primary JHONNY CRUZB: [place] FRE[place] Insurance:MEDICARE [id number] [facility], [facility] PART [address] BPolicy Number: [place], [place] [address]Ysq: [id number] Repository Date:2018-03-16 () 03/29/2018 Secondary JHONNY L ERBDOB: Matthias Insurance:MEDICAIDPoli [id number] [facility], [facility] cy Number: Hospital [id number] Repository Date:2018-03-16 03/29/2018 Tertiary NOT GIVENUNK [place] Insurance:SELF PAY Community INS[facility]Policy Hospital Number: Effective Repository Date:2018-03-29 03/14/2018 JHONNY Carson [id number] Primary JHONNY GRIJALVADOB: Matthias [place]RE[place] Insurance:MEDICARE [id number] [facility] PART A BPolicy Number: [place] [address]Vop: [id number] Repository Date:2018-03-13 () 03/14/2018 Secondary JHONNY GRIJALVADOB: [place] Insurance:MEDICAIDPoli [id number] [facility], [facility] cy Number: Hospital [id number] Repository Date:2018-03-13 03/14/2018 Tertiary NOT GIVENUNK [place] Insurance:SELF PAY Community [facility] Hospital Number: Effective Repository Date:2018-03-13 03/14/2018 JHONNY Yamileth [id number] Primary JHONNY GRIJALVADOB: [facility]thias [place]RE[place] Insurance:MEDICARE [id number] [facility] PART A BPolicy Number: [place] [address]Bhp: [id number] Repository Date:2018-03-13 () 03/14/2018 Secondary JHONNY GRIJALVADOB: [facility] Insurance:MEDICAIDPoli [id number] [facility], [facility] cy Number: Hospital [id number] Repository Date:2018-03-13 03/14/2018 Tertiary NOT GIVENUNK Mat[facility] Insurance:SELF PAY Community [facility] Number: Effective Repository Date:2018-03-14 03/14/2018 JHONNY Carson [id number] Primary JHONNY GRIJALVADOB: [place] FRE[place] Insurance:MEDICARE [id number] [facility] PART A BPolicy Number: [place] [address]Bbg: [id number] Repository Date:2018-03-13 () 03/14/2018 Secondary JHONNY Carson ERBDOB: [facility] Insurance:MEDICAIDPoli [id number] [facility], [facility] cy Number: Hospital [id number] Repository Date:2018-03-13 03/14/2018 Tertiary NOT GIVENUNK [place] Insurance:SELF PAY Community [facility] Number: Effective Repository Date:2018-03-14 03/14/2018 JHONNY GRIJALVA7640 Primary JHONNY GRIJALVADOB: [facility]thias [place] Insurance:MEDICARE [id number] Community [address] PART A BPolicy Number: [facility] [place] [address]Trv: [id number] Repository Date:2018-03-13 () 03/14/2018 Secondary JHONNY CRUZB: [facility] Insurance:MEDICAIDPoli [id number] Community cy Number: Hospital [id number] Repository Date:2018-03-13 03/14/2018 Tertiary NOT GIVENUNK [place] Insurance:SELF PAY Community [facility] Number: Effective Repository Date:2018-03-14 03/14/2018 JHONNY GRIJALVA7640 Primary JHONNY GRIJALVADOB: [facility]thias [place] Insurance:MEDICARE [id number] [facility], [facility] PART A BPolicy Number: [facility] [place] [address]Cxs: [id number] Repository Date:2018-03-13 () 03/14/2018 Secondary JHONNY CRUZB: [place] Insurance:MEDICAIDPoli [id number] [facility], [facility] cy Number: Hospital [id number] Repository Date:2018-03-13 03/14/2018 Tertiary NOT GIVENUNK [facility] Insurance:SELF PAY Community [facility] Number: Effective Repository Date:2018-03-14 03/13/2018 JHONNY GRIJALVA7640 Primary JHONNY GRIJALVADOB: [place] Insurance:MEDICARE [id number] [facility], [facility] PART A BPolicy Number: [facility] [place] [address]Wqu: [id number] Repository Date:2018-03-13 () 03/13/2018 Secondary JHONNY CRUZB: [place] Insurance:MEDICAIDPoli [id number] [facility], [facility] cy Number: Hospital [id number] Repository Date:2018-03-13 03/13/2018 Tertiary NOT GIVENUNK [place] Insurance:SELF PAY Community [facility] Hospital Number: Effective Repository Date:2018-03-13 03/13/2018 JHONNY Carson [id number] Primary JHONNY GRIJALVADOB: [place] Insurance:MEDICARE [id number] [facility] PART A BPolicy Number: [facility] [place] [id number]: [id number] Repository Date:2018-03-13 () 03/13/2018 Secondary JHONNY CRUZB: [facility] Insurance:MEDICAIDPoli [id number] [facility], [facility] cy Number: Hospital [id number] Repository Date:2018-03-13 03/13/2018 Tertiary NOT GIVENUNK [facility] Insurance:SELF PAY Community [facility] Hospital Number: Effective Repository Date:2018-03-13 03/13/2018 JHONNY Carson [id number] Primary JHONNY CRUZB: [facility] Insurance:MEDICARE [id number] [facility] PART A BPolicy Number: [facility] [place] [id number]: [id number] Repository Date:2018-03-13 () 03/13/2018 Secondary JHONNY GRIJALVADOB: [facility] Insurance:MEDICAIDPol [id number] [facility], [facility] cy Number: Hospital [id number] Repository Date:2018-03-13 03/13/2018 Tertiary NOT GIVENUNK [facility] Insurance:SELF PAY Community [facility] Number: Effective Repository Date:2018-03-13 03/13/2018 JHONNY Carson [id number] Primary JHONNY CRUZB: [place] Insurance:MEDICARE [id number] [facility] PART A BPolicy Number: [facility] [place] [address]Mka: [id number] Repository Date:2018-03-13 () 03/13/2018 Secondary JHONNY GRIJALVADOB: [place] Insurance:MEDICAIDPoli [id number] [facility], [facility] cy Number: Hospital [id number] Repository Date:2018-03-13 03/13/2018 Tertiary NOT GIVENUNK [place] Insurance:SELF PAY Community [facility] Hospital Number: Effective Repository Date:2018-03-13 03/07/2018 JHONNY [id number] Primary JHONNY MATOS [facility] [place] [facility] [address] cy Number: Repository [place] [address]Wjo: [id number] Date: () 02/20/2018 JHONNY Carson [id number] Primary JHONNY CRUZB: [place] Insurance:MEDICARE [id number] [facility] PART A BPolicy Number: [facility] [place] [address]Hig: [id number] Repository Date:2018-01-12 () 02/20/2018 Secondary JHONNY CRUZB: [place] [facility] [id number] [facility], [facility] cy Number: Hospital [id number] Repository Date:2018-01-12 02/20/2018 Tertiary NOT GIVENUNK [place] Insurance:SELF PAY Community [facility] Number: Effective Repository Date:2018-02-20 02/13/2018 JHONNY Carson [id number] Primary JHONNY CRUZB: [place] Insurance:MEDICARE [id number] [facility] PART A BPolicy Number: [facility] [place] [address]Lws: [id number] Repository Date:2018-01-12 () 02/13/2018 Secondary JHONNY CRUZB: [place] [facility] [id number] [facility], [facility] cy Number: Hospital [id number] Repository Date:2018-01-12 02/13/2018 Tertiary NOT GIVENUNK [place] Insurance:SELF PAY Community [facility] Number: Effective Repository Date:2018-01-12 02/13/2018 JHONNY [id number] Primary JHONNY GRIJALVAB: [place] Insurance:MEDICARE [id number] [facility] PART A BPolicy Number: [facility] [place] [address]Fwr: [id number] Repository Date:2018-01-12 () 02/13/2018 Secondary JHONNY GRIJALVAB: [place] [facility] [id number] [facility], [facility] cy Number: Hospital [id number] Repository Date:2018-01-12 02/13/2018 Tertiary NOT GIVENUNK [facility] Insurance:SELF PAY Community [facility] Number: Effective Repository Date:2018-02-13 02/13/2018 JHONNY GRIJALVA7640 Primary JHONNY CRUZB: [place] Insurance:MEDICARE [id number] Community [address] PART A BPolicy Number: [facility] [place] [address]Bvh: [id number] Repository Date:2018-01-12 () 02/13/2018 Secondary JHONNY CRUZB: [place] Insurance:MEDICAIDPoli [id number] [facility], [facility] cy Number: Hospital [id number] Repository Date:2018-01-12 02/13/2018 Tertiary NOT GIVENUNK [place] Insurance:SELF PAY Community [facility] Hospital Number: Effective Repository Date:2018-02-13 02/13/2018 JHONNY Carson [id number] Primary JHONNY CRUZB: [place] Insurance:MEDICARE [id number] [facility] PART A BPolicy Number: [place], [place] [address]Qqq: [id number] Repository Date:2018-01-12 () 02/13/2018 Secondary JHONNY GRIJALVADOB: [place] Insurance:MEDICAIDPoli [id number] [facility], [facility] cy Number: Hospital [id number] Repository Date:2018-01-12 02/13/2018 Tertiary NOT GIVENUNK [place] Insurance:SELF PAY Community [facility] Hospital Number: Effective Repository Date:2018-02-13 02/13/2018 JHONNY Crason [id number] Primary JHONNY GRIJALVADOB: [place] Insurance:MEDICARE [id number] [facility], [facility] PART A BPolicy Number: [place], [place] [address]Dbu: [id number] Repository Date:2018-01-12 () 02/13/2018 Secondary JHONNY GRIJALVADOB: [place] Insurance:MEDICAIDPoli [id number] Community cy Number: Hospital [id number] Repository Date:2018-01-12 02/13/2018 Tertiary NOT GIVENUNK [place] Insurance:SELF PAY Community [facility] Hospital Number: Effective Repository Date:2018-02-13 02/13/2018 JHONNY GRIJALVA7640 Primary JHONNY GRIJALVADOB: [place] Insurance:MEDICARE [id number] [facility] PART A BPolicy Number: [place] [address]Wqg: [id number] Repository Date:2018-01-12 () 02/13/2018 Secondary JHONNY CRUZB: [place] Insurance:MEDICAIDPoli [id number] [facility], [facility] cy Number: Hospital [id number] Repository Date:2018-01-12 02/13/2018 Tertiary NOT GIVENUNK [place] Insurance:SELF PAY Community [facility] Hospital Number: Effective Repository Date:2018-02-13 02/13/2018 JHONNY GRIJALVA7640 Primary JHONNY GRIJALVADOB: [place]th[place] Insurance:MEDICARE [id number] [facility], [facility] PART A BPolicy Number: [facility] [place] [address]Nxc: [id number] Repository Date:2018-01-12 () 02/13/2018 Secondary JHONNY GRIJALVAB: [place] Insurance:MEDICAIDPoli [id number] [facility]ly [facility], [facility] cy Number: Hospital [id number] Repository Date:2018-01-12 02/13/2018 Tertiary NOT GIVENUNK [place] Insurance:SELF PAY Community [facility] Hospital Number: Effective Repository Date:2018-02-13 02/13/2018 JHONNY GRIJALVA7640 Primary JHONNY GRIJALVADOB: [place]th[place] Insurance:MEDICARE [id number] [facility], [facility] PART A BPolicy Number: [facility] [place] [address]Wma: [id number] Repository Date:2018-01-12 () 02/13/2018 Secondary JHONNY GRIJALVADOB: [place] Insurance:MEDICAIDPoli [id number] [facility], [facility] cy Number: Hospital [id number] Repository Date:2018-01-12 02/13/2018 Tertiary NOT GIVENUNK [place] Insurance:SELF PAY Community [facility] Hospital Number: Effective Repository Date:2018-02-13 02/13/2018 JHONNY GRIJALVA7640 Primary JHONNY GRIJALVADOB: [place]th[place] Insurance:MEDICARE [id number] [facility], [facility] PART A BPolicy Number: [facility] [place] [address]Lnn: [id number] Repository Date:2018-01-12 () 02/13/2018 Secondary JHONNY GRIJALVAB: [place] Insurance:MEDICAIDPoli [id number] [facility], [facility] cy Number: Hospital [id number] Repository Date:2018-01-12 02/13/2018 Tertiary NOT GIVENUNK [place] Insurance:SELF PAY Community [facility] Hospital Number: Effective Repository Date:2018-02-13 02/13/2018 JHONNY GRIJALVA7640 Primary JHONNY GRIJALVAB: [place] Insurance:MEDICARE [id number] [facility], [facility] PART A BPolicy Number: [facility] , [place] [id number]: [id number] Repository Date:2018-01-12 () 02/13/2018 Secondary JHONNY GRIJALVAB: [place] Insurance:MEDICAIDPoli [id number] Formerly [facility], 1928–1983 cy Number: Hospital [id number] Repository Date:2018-01-12 02/13/2018 Tertiary NOT GIVENUNK [place] Insurance:SELF PAY Community INSURANCEPolicy Hospital Number: Effective Repository Date:2018-02-13 02/13/2018 JHONNY [id number] Primary JHONNY GRIJALVADOB: [place] Insurance:MEDICARE [id number] [facility]ly [facility], [facility] PART A BPolicy Number: [place], [place] [address]Rki: [id number] Repository Date:2018-01-12 () 02/13/2018 Secondary JHONNY Carson NANCYB: [place] Insurance:MEDICAIDPoli [id number] [facility]ly [facility], [facility]–1983 cy Number: Hospital [id number] Repository Date:2018-01-12 02/13/2018 Tertiary NOT GIVENUNK [place] Insurance:SELF PAY Community INSURANCEPolicy Hospital Number: Effective Repository Date:2018-02-13 02/13/2018 JHONNY [id number] Primary JHONNY GRIJALVADOB: [place] Insurance:MEDICARE [id number] [facility], [facility] PART A BPolicy Number: [place] [address]Lyp: [id number] Repository Date:2018-01-12 () 02/13/2018 Secondary JHONNY Carson ERBDOB: [place] Insurance:MEDICAIDPoli [id number] Community cy Number: Hospital [id number] Repository Date:2018-01-12 02/13/2018 Tertiary NOT GIVENUNK [place] Insurance:SELF PAY Community INSURANCEPoly Hospital Number: Effective Repository Date:2018-02-13 02/13/2018 JHONNY [id number] Primary JHONNY GRIJALVADOB: [place] Insurance:MEDICARE [id number] [facility], [facility] PART A BPolicy Number: [place], [place] [address]Wpm: [id number] Repository Date:2018-01-12 () 02/13/2018 Secondary JHONNY GRIJALVADOB: [place] Insurance:MEDICAIDPoli [id number] Formerly [facility], [facility] cy Number: Hospital [id number] Repository Date:2018-01-12 02/13/2018 Tertiary NOT GIVENUNK [place] Insurance:SELF PAY Community INSURANCEPoly Hospital Number: Effective Repository Date:2018-02-13 12/20/2017 JHONNY Carson [id number] Primary JHONNY GRIJALVADOB: [place] Insurance:MEDICARE [id number] [facility], [facility] [address], PART A BPolicy Number: [facility] [address]Vmx: [id number] Repository Date:2017-12-20 () 12/20/2017 Secondary JHONNY GRIJALVADOB: [place] Insurance:MEDICAIDPoli [id number] [facility]ly [facility], [facility] cy Number: Hospital [id number] Repository Date:2017-12-20 12/20/2017 Tertiary NOT GIVENUNK [place] Insurance:SELF PAY Community INSURANCEPoly Hospital Number: Effective Repository Date:2017-12-20 12/12/2017 JHONNY GRIJALVADOB: Primary JHONNY GRIJALVADOB: [place] [employer] [id number] Insurance:MEDICARE [id number] [facility] PART BPolicy Number: [address] [place] [address] Repository [place], [id number] [address] [place] [address]Hqi: Date:2017-12-12 - [place] [address]Hzy: [id number] () Name:PCGS ()Tel: (000) Administrators LLCPO 000-0000 (WP) [address] [address]Hnvhlsrfn, [place] [address]AN: 12/12/2017 Secondary JHONNY L VALENTINEDOB: [facility] Insurance:MED[place]ID [place] [id number] [facility] Repository [id number] [address] [place] [place] [address], Date:2017-12-12 - [place] [address]Btj: [id number] Name:MARGARET JONES Box ()Tel: (000) [phone], [place] 000-0000 (WP) [address]LO: 12/12/2017 Tertiary JHONNY GRIJALVADOB: [facility] Insurance:MEDICARE [id number] [facility] PART APolicy Number: [facility] Repository [id number] [address] [place] [place] [address], Date:2017-12-12 - [place] [address]Ook: [id number] Name:MMail Code AG ()Tel: (000) [address]0000 (WP) 260[place]Zvawfscg, [place] [address]LL: 10/17/2017 JHONNY ALVARADO09 Primary JHONNY RCUZB: [place] Insurance:MEDICARE [id number] [address], PART A BPolicy Number: [facility] [address]Eys: [id number] Repository Date:2017-09-28 () 10/17/2017 Secondary JHONNY CRUZB: [place] Insurance:MEDICAIDPoli [id number] [facility], [facility] cy Number: Hospital [id number] Repository Date:2017-09-28 10/17/2017 Tertiary NOT GIVENUNK [place] Insurance:SELF PAY [facility] Effective Repository Date:2017-09-28 09/30/2017 JHONNY CRUZB: Primary JHONNY GRIJALVADOB: [facility] [id number] Insurance:MEDICARE [id number] [place] [address] PART APolicy Number: [facility] Repository [facility], [id number] [address] [place] [address], [place] [address]Wkd: Date:2017-09-30 [place] [address]Ref: [id number] (HP) Name:MMail Code AG ()Tel: (000) [address] (WP) [address]Weeuaujv, [place] [address]MS: 09/30/2017 Secondary JHONNY CRUZB: [facility] Insurance:MEDICARE [id number] [facility] Number: [facility] Repository [id number] [address], Date:2017-09-30 [place] [address]Xkc: [id number] Name:PCGS ()Tel: (000) Administrators LLCPO 000-0000 () [address] [place] [address]AQ: 09/30/2017 Tertiary JHONNY CRUZB: [facility] Insurance:[place] [id number] [facility] Number: [facility] Repository [id number] [address], Date:2017-09-30 [place] [address]Awd: [id number] Name:MARGARET KAREN Box ()Tel: (000) [phone], [place] 000-0000 (WP) [address]HR: 09/29/2017 JHONNY CHO: Primary Insurance:Kaitlynn CHO: Bridger Tripathi [id number] MEDICARE [id number], Number: [address], Repository [place] [id number] [place] [id number]: Date:Plan Name: () 09/29/2017 Secondary JHONNY CHO: Bridger Tripathi Insurance:MEDICAID [id number] [place] [address] TWP Hospital Number: [address], Repository [id number] [place] [id number] Date:Plan Name:X1 09/25/2017 JHONNY GRIJALVAB: Primary JHONNY GRIJALVADOB: [facility] Insurance:MEDICARE [id number] [facility] BPolicy Number: [facility] Repository [address], [id number] [address], [place] [address]Aea: Date:2017-09-25 - [place] [address]Gqt: [id number] (HP) Name:PCGS (HP)Tel: (000) Administrators LLCPO 000-0000 (WP) [address] [address]Fnyxzfrbp, [place] [address]ME: 09/25/2017 Secondary JHONNY Carson NANCYB: [facility] Insurance:MEDICAID [id number] [facility] Number: [facility] Repository [id number] [address], Date:2017-09-25 - [place] [address]Esq: [id number] Name:MARGARET JONES Box (HP)Tel: (000) [phone], [place] 000-0000 (WP) [address]PA: 09/25/2017 JHONNY CRUZB: Primary JHONNY GRIJALVADOB: [facility] Insurance:MEDICARE [id number] [facility] BPolicy Number: [facility] Repository [address], [id number] [address], [place] [address]Xki: Date:2017-09-25 - [place] [address]Paq: [id number] (HP) Name:PCGS (HP)Tel: (000) Administrators LLCPO 000-0000 (WP) [address] [address]Rqlofebbs, [place] [address]XC: 09/25/2017 Secondary JHONNY Carson NANCYB: [facility] Insurance:MEDICAID [place] [id number] [facility] Number: 9 [facility] [id number] [address], Date:2017-09-25 - [place] [address]Bgg: [id number] Name:MARGARET JONES Box (HP)Tel: (000) [phone], [place] 000-0000 (WP) [address]MS: 09/25/2017 JHONNY CRUZB: Primary JHONNY GRIJALVADOB: [facility] [id number] Insurance:MEDICARE [id number] [place] [address] BPolicy Number: 9 [facility] [address], [id number] [address], [place] [address]Ogy: Date:2017-09-22 - [place] [address]Frx: [id number] () Name:LENCHO ()Tel: (000) Administrators LLCPO 000-0000 (WP) [address] [place] [address]BW: 09/25/2017 Secondary JHONNY CHO: [facility] Insurance:MEDICAID [place] [id number] [place] [address] Number: 9 [facility] [id number] [address], Date:2017-09-22 - [place] [address]Gsi: [id number] Name:MARGARET PITTSLIONEL Box ()Tel: (000) [phone], [place] 000-0000 (WP) [address]OQ: 09/11/2017 JHONNY CHO: Primary JHONNY CRUZB: [facility] [id number] Insurance:MEDICARE [id number] [facility] BPolicy Number: [facility] Repository [address], [id number] [address], [place] [address]Ujq: Date:2017-09-07 [place] [address]Xgm: [id number] () Name:DAJAS ()Tel: (000) Administrators LLCPO 000-0000 () [address] [address]Cplqtxthi, [place] [address]QX: 09/11/2017 Secondary JHONNY CRUZB: [facility] Insurance:MEDICAID [place] [id number] [place], [place] [address] Number: [facility] Repository [id number] [address], Date:2017-09-07 - [place] [address]Njy: [id number] Name:MARGARET JONES Box ()Tel: ([phone], [place] 000-0000 (WP) [address]FH: 09/02/2017 JHONNY GUTIERREZ Primary JHONNY CRUZB: [place] [facility] [id number], Number: [facility] [address]Stx: [id number] Repository Date:2017-09-02 () 09/02/2017 Secondary JHONNY CRUZB: [place] Insurance:MEDICARE [id number] Community PART A BPolicy Number: Hospital [id number] Repository Date:2017-09-02 09/02/2017 Tertiary NOT GIVENUNK [place] Insurance:SELF PAY [facility] Number: Effective Repository Date:2017-09-02 08/22/2017 JHONNY GUTIERREZ TR Primary Insurance:SELF NOT GIVENUNK [place] [address] [place] [place] [address], [facility]Y [facility] [address]Csl: Number: Effective Hospital Date:2017-04-07 Repository () 08/19/2017 JHONNY CHO: Primary JHONNY CRUZB: [facility] [id number] Insurance:MEDICARE [id number] [place] [address] PART BPolicy Number: [facility] Repository [address], [id number] [address] [place] [address]Hnt: Date:2017-08-19 [place] [address]Skd: [id number] () Name:LENCHO ()Tel: (000) Administrators LLCPO 000-0000 (WP) [address] [address]Jxlfsmcdv, [place] [address]XY: 08/19/2017 Secondary JHONNY CRUZB: [facility] Insurance:MEDICAID [place] [id number] [facility] Number: 9 [facility] [id number] [facility], Date:2017-08-19 [place] [address]Whn: [id number] Name:MARGARET Cheng ()Tel: ([phone], [place] 000-0000 (WP) [address]IR:
== END ==
PROVIDERS: Family Provider Family Medicine; PCP Family Medicine; Referring Provider Internal Medicine Endocrinology, Diabetes & Metabolism; Visit Provider Internal Medicine Endocrinology, Diabetes & Metabolism
DX: E11.9 Type 2 diabetes mellitus without complications (principal)
CPT/HCPCS: 36415; 80053; 82043; 82570; 83036

== ENCOUNTER 2018-06-29 09:00 | Outpatient (RCR) | payer MEDICARE, MEDICAID, SELFPAY ==
[2018-03-15 12:56] VITALS: BMI 37.7
--- NOTE | 2018-05-11 10:07 | HP.PTEVAL_ITS ---
Patient's Visit Information JHONNY GRIJALVA is a 68 year old M referred to Physical Therapy by Rogelio Seaman MD with a diagnosis of L TKA. Date of Evaluation: 05/11/18 Physical Therapist: Pranay Campbell, PT, ATC - Visit Plan Frequency: 2x /Week Duration: 6 Weeks Plan: L knee stretching and strengthening, balance and proprio, core stab ex's, nustep, and HEP - Subjective Findings: DOS: 02/13/18. Pt reports he had a revision performed for his L TKA. Pt reports he had the same surgery 10 years ago which eventually went bad. Pt reports he is doing really well now. Pt reports he had home health for his knee up until a month ago. 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 Pt was on a cane for 6-7 years secondary to a L knee pain, but now does not need an AD. No tingling or numbness in L LE. No sleep difficulty secondary to pain. No stairs at home. 3/10 pain at rest, 4/10 pain at worst (prolonged sitting). Pt notes difficulty with prolonged walking secondary to pain. - Pain L TKA Pain Intensity (Out of 10): 3 Pain Intensity Range: 4 - Objective Neuro: B LE sensation is WNL to light touch with exception to L L-5 dematone. B achilles reflex= 1/3. ROM: R knee 0-120 degrees; L knee 0-7-120 degrees. Girth at joint line: L knee 45 cm, R knee 40 cm. MMT: R knee 5/5 throughout. L knee 4-/5 throughout - Goals Goal 1:: Decrease L knee pain x 50% to aid with tolerance for standing Goal Time Frame: 4-6 Weeks Goal 2:: Increase L knee strength x 1 grade to aid with IADL's Goal Time Frame: 4-6 Weeks Goal 3:: Increase L knee flexion ROM x 10 degrees to aid with restoring a more normalized gait pattern Goal Time Frame: 4-6 Weeks Goal 4:: I with HEP Goal Time Frame: 4-6 Weeks - Rehabilitation Potential Physical Therapy Diagnosis: L knee pain, weakness, and swelling secondary to L TKA Rehabilitation Potential: Good - Anticipated Interventions Patient/Client Instruction: Educate patient on: Condition, Plan of Care For the Purpose of:: To improve self management Therapeutic Exercise to Include: Strength training, Endurance training, Balance training, Flexibilty training, Gait and locomotor training, Active ROM, Dynamic Lumbar Stabilization For the Purpose of:: To decrease pain, To increase ROM, To improve muscle performance and motor function Cryotherapy (ice pack, ice massage): Yes For the Purpose of:: To decrease pain Thank you for the opportunity to evaluate your patient. For Medicare and Medicare HMO plans, please review the plan of care and approve it. It will need to be FAXED BACK to us at [phone] for Medicare purposes. For Medicare only, by signing this I certify the plan of care. Please let me know if there are questions or concerns regarding this plan of care. Physician Signature: __Date:
--- NOTE | 2018-06-29 08:32 | HP.PTDCSUM ---
HP - PT D/C Summary It has been my pleasure to treat JHONNY GRIJALVA under orders from Rogelio Seaman MD, for the diagnosis of L TKA for a total of 18 visit(s). Discharge Date: Please see the following information for a summary of their discharge status. - Subjective Subjective: Only minor pain this date. Pt feels ready to be discharged - Pain L TKA Pain Intensity (Out of 10): 1 - Overall Improvement % Improvement: 90 - Objective Objective/Function: L knee pain 04/19. L knee MMT: 08/12 throughout. L knee ROM: 0-120 degrees. I with HEP - Goals Goal 1:: Decrease L knee pain x 50% to aid with tolerance for standing Goal Progress: Goal Met Goal 2:: Increase L knee strength x 1 grade to aid with IADL's Goal Progress: Goal Met Goal 3:: Increase L knee flexion ROM x 10 degrees to aid with restoring a more normalized gait pattern Goal Progress: Goal Met Goal 4:: I with HEP Goal Progress: Goal Met - Plan Plan: Discharge - D/C Information If there are questions or concerns regarding this patient's physical therapy, please feel free to call me at [phone]. Thank you for the referral of this patient. Sincerely, Pranay Campbell, PT, ATC
== END 2018-06-29 19:00 | disposition home or self-care (01) ==
LOC: PT 09:00
PROVIDERS: Family Provider Family Medicine; PCP Family Medicine; Referring Provider Specialist; Visit Provider Specialist
DX: Z96.652 Presence of left artificial knee joint (principal); Z47.1 Aftercare following joint replacement surgery
CPT/HCPCS: 97110; 97161; 97530

== ENCOUNTER → 2018-07-16 | Outpatient (CLI) | payer MEDICARE, MEDICAID, SELFPAY ==
[2018-03-15 12:56] VITALS: BMI 37.7
[2018-06-25 13:14] VITALS: BMI 39.6
[2018-07-16 10:14] LABS: AST(SGOT) 22 U/L (15-37); Alanine Aminotransfer ALT/SGPT 26 U/L (16-61); Albumin, Serum 3.5 g/dL (3.2-5.0); Alkaline Phosphatase 54 U/L (45-117); Anion Gap 7 (5-15); BUN 21 mg/dL (7-18); BUN/Creat Ratio 20.8 RATIO (10-20); Bilirubin, Direct 0.14 mg/dL (0.00-0.30); Calcium,Total 8.7 mg/dL (8.5-10.1); Chloride 107 mmol/L (98-107); Cholesterol 221 mg/dL (200); Creatinine, Serum 1.01 mg/dL (0.70-1.30); EST Glomerular Filtration Rate 78 mL/min (>60); Est Glom Filt Rate - Afr Amer 94 mL/min (>60); Globulin 3.4 g/dL (2.2-4.2); Glucose 209 mg/dL (74-106); High Density Lipoprotein 60 mg/dL; Potassium 4.4 mmol/L (3.5-5.1); Protein, Total 6.9 g/dL (6.4-8.2); Sodium Level 141 mmol/L (136-145); Triglycerides 218 mg/dL; Very Low Density Lipoprotein 44 mg/dL (5-40)
== END | disposition home or self-care (01) ==
LOC: LAB 08:22
PROVIDERS: Family Provider Family Medicine; PCP Family Medicine; Referring Provider Internal Medicine Cardiovascular Disease; Visit Provider Internal Medicine Cardiovascular Disease
DX: I25.10 Atherosclerotic heart disease of native coronary artery without angina pectoris (principal); E78.5 Hyperlipidemia, unspecified; I36.1 Nonrheumatic tricuspid (valve) insufficiency; I50.41 Acute combined systolic (congestive) and diastolic (congestive) heart failure; I51.9 Heart disease, unspecified; R00.1 Bradycardia, unspecified; Z95.5 Presence of coronary angioplasty implant and graft; Z86.718 Personal history of other venous thrombosis and embolism
CPT/HCPCS: 36415; 80048; 80061; 80076

== ENCOUNTER → 2018-08-03 | Outpatient (CLI) | payer MEDICARE, MEDICAID, SELFPAY ==
[2018-03-15 12:56] VITALS: BMI 37.7
[2018-06-25 13:14] VITALS: BMI 39.6
[2018-08-03 10:04] LABS: AST(SGOT) 23 U/L (15-37); Alanine Aminotransfer ALT/SGPT 24 U/L (16-61); Albumin, Serum 3.9 g/dL (3.2-5.0); Alkaline Phosphatase 75 U/L (45-117); Anion Gap 6 (5-15); BUN 17 mg/dL (7-18); BUN/Creat Ratio 15.6 RATIO (10-20); Calcium,Total 9.1 mg/dL (8.5-10.1); Chloride 103 mmol/L (98-107); Creatinine, Serum 1.09 mg/dL (0.70-1.30); EST Glomerular Filtration Rate 71 mL/min (>60); Est Glom Filt Rate - Afr Amer 86 mL/min (>60); Globulin 3.9 g/dL (2.2-4.2); Glucose 198 mg/dL (74-106); Potassium 4.1 mmol/L (3.5-5.1); Protein, Total 7.8 g/dL (6.4-8.2); Sodium Level 137 mmol/L (136-145)
[2018-08-03 11:12] LABS: Microalbumin,Random Urine 13.5 mg/L (NO RANGE EST.); Microalbumin:Creatinine Ratio 10.1 mg/g CRE (<30 mg/g CRE)
== END | disposition home or self-care (01) ==
LOC: LAB.FUTURE 07:59
PROVIDERS: Family Provider Family Medicine; PCP Family Medicine; Referring Provider Internal Medicine Endocrinology, Diabetes & Metabolism; Visit Provider Internal Medicine Endocrinology, Diabetes & Metabolism
DX: E11.9 Type 2 diabetes mellitus without complications (principal)
CPT/HCPCS: 36415; 80053; 82043; 82570; 83036

== ENCOUNTER → 2018-10-04 | Outpatient (CLI) | payer MEDICARE, MEDICAID, SELFPAY ==
[2018-03-15 12:56] VITALS: BMI 37.7
[2018-06-25 13:14] VITALS: BMI 39.6
--- NOTE | 2018-10-04 07:14 | PCM.CR.ITP ---
General Information - General Information Admitting Diagnosis: PCI w/ coronary stenting - Education/Goals Individual Counseling: Initial Assessment: Abnormal Cholesterol Levels, High Blood Pressure, Overweight/Obesity, Diabetes - hba1c 8.0 08/03/2017, A. Fasting Blood Sugar >100 - 198 08/03/2017, B. Waist Circumference >35/Females >40/Males, C. High Triglycerides >150, Hypertension, Sedentary Lifestyle Cardiac Rehabilitation Goals: 1. Maintain the individual as the primary focus of care. 2. To improve the patient's quality of life. 3. Identification of cardiac risk factors and provide cardiac risk factor management. 4. Enhance the psychosocial status of the patient. 5. Reconditioning enough to allow the patient to resume customary activities. 6. Control symptoms of cardiac disease Scale for measuring improvement of personal goals: Enter appropriate number in Comments. 2 = Unchanged. 3 = Slightly Better. 4 = Moderate Improvement. 5 = Met my Goal Personal Goals: Initial Assessment: Improve management of stress and emotions, Improve energy level, Participate in home exercise program, Get back to work, or to resume activities faster, Improve knowledge of cardiac disease, Improve muscle strength and endurance, Improve diet and eating habits (eat healthier), Control risk factors (learn risk factor modification), Other goal: - EMPLOYED - FIND A JOB Exercise - Initial Assessment - Visit Date of Eval: 10/04/18 - Initial evaluation; scheduled to start - Stages of Change Stages of Change:: Action - Physician Prescribed Exercise Modalities: Treadmill - Neuropathy and lower back pain.10, Airdyne, NuStep, SciFit Frequency (days/week): 3x/week for 12 weeks [36 sessions] Duration (Minutes):: 30-45 Intensity: 60-80% age predicted maximum heart rate reserve METs - Progression: 0.5-1.0 MET, RPE 11-14 WEEK: 2.5 Target Heart Rate:: 99-129 - Hypertension Do any of the following apply?: Yes, Medication Resting Blood Pressure:: 104/52 - Intervention Home Exercise/Activity Goal:: Sitting Time <3 hrs/day - Education Goals:: Warm-up, RPE ZAHRAA Scale, S/S, Safe Exercise, Self-Monitoring - Exercise Program Goals Exercise Program Goals: Aerobic Activity >30 min Nutrition - Initial Assessment - Program Goals Nutrition Program Goals: LDL <70. Total Cholesterol <200. HDL >45. Triglycerides <150. HgbA1C <7%. BMI <25 - Visit Date of Assessment:: 10/04/18 - Stages of Change Stages of Change:: Action - Lipids Total Cholesterol (mg/dL) Goal = less than 200 mg/dL: 221 HDL Cholesterol (mg/dL) Goal = less than 45 mg/dL: 60 LDL Cholesterol (mg/dL) Goal = less than 70 mg/dL: 117 Triglycerides (mg/dL) Goal = less than 150 mg/dL: 218 - Diabetes Diabetes:: Yes Fasting blood glucose:: 198 Hgb A1C: 8 Insulin: Yes Non-Insulin Dependent?: Yes Do you monitor your blood sugar at home?: Yes - Weight Management Height: 5 ft 7 in Weight:: 253 lb Body Fat %:: 39.6 - Intervention Referral to dietitian:: Yes Referral to Diabetic Clinic:: Yes Will attend diet classes:: Yes - Education Gave educational materials for:: Signs & symptoms of hypoglycemia, Signs & symptoms of hyperglycemia, Relate diabetes to coronary artery disease, Healthy eating Tobacco - Initial Assessment - Program Goals Tobacco Program Goals: Complete smoking cessation. Attend education classes. Improve Knowledge Test score - Stage of Change Stages of Change:: Action - Learning Barriers Learning Barriers: Vision, Literacy, Ready to Learn - Family Support Do you have family support?: Yes - Tobacco Use Tobacco Use: Non-smoker Do you use smokeless tobacco?: No - Intervention Smoking Cessation Referral:: No Individual Education/Counseling:: No Education Schedule Given:: Yes - Education Gave educational material for:: Coronary artery disease, Risk factors, Sexuality, Medical compliance, Cardiac A&P, Angina signs & symptoms Psychosocial - Initial Assess - Target Goals Target Goals: Assess presence or absence of depression. Using a valid screening tool, maximizes coping skills. Positive support system - Stages of Change Stages of Change:: Action - Psychosocial Test Tool Used:: HANDS Depression Questionnaire - Intervention PS - Interventions: Yes Attend Stress Management Classes, No Referral to Mental Health, No Referral to [facility] Case Management, No Referral to Physician, No Uses Stress Management Skills - Education Gave educational materials for:: Coping techniques, Signs & symptoms of depression, Stress management, Relaxation techniques - Patient/Program Goal Preventative Medication(s):: Aspirin, Clopidogrel, Beta poonam, Statin/lipid - Assistive Devices Assistive Devices:: None, Cane Fall Risk Assessed:: Yes Patient Health Questionnaire Initial Assessment 1. Little interest or pleasure in doing things: Several days 2. Feeling down, depressed, or hopeless: Not at all 3. Trouble falling or staying asleep, or sleeping too much: More than half the days 4. Feeling tired or having little energy: Nearly every day 5. Poor appetite or overeating: Several days 6. Feeling bad about yourself -- or that you are a failure or have let yourself or your family down: Several days 7. Trouble concentrating on things, such as reading the newspaper or watching television: Several days 8. Moving or speaking so slowly that other people could have noticed. Or the opposite - being so fidgety or restless that you have been moving around a lot more than usual: Several days 9. Thoughts that you would be better off , or of hurting yourself in some way: Not at all How difficult have these problems made it for you to do your work, take care of things at home, or get along with other people?: Not difficult at all Total Score: 10 REJI-Q SV Test - Statements CAD is a disease of the arteries in the heart: False Examples of risk factors for heart disease: True Angina is chest pain or discomfort: True The benefits of resistance training include: True Eating more meat and dairy products: False Anti-platelet medications such as aspirin are important: True The only effective way to manage stress: True An exercise warm-up slowly increases heart rate: True Prepared, processed foods usually have high sodium: True Depression is common after a heart attack: True The statin medications lower cholesterol: True To control blood pressure, lower the amount of sodium: True If someone gets chest discomfort during walking: True Transfats are partially hydrogenated vegetable oils: True Sleep apnea that is not treated increases the risk: True To control cholesterol, one should become a vegetarian: False Someone knows if he/she is exercising at the right level: I Don't Know Diabetes cannot be prevented with exercise & health eating: True Stress is a large risk for heart attack: True A diet that can help lower blood pressure is rich in: True - Total Score Total Correct Responses: 15 Self-Efficacy Initial Assessment We would like to know how confident you are in doing certain activities. Please select your confidence level for:: Select your confidence level for the following using the scale 1-10 where 1 is not at all confident and 10 is totally confident. Your score is the average of all 6 responses. Fatigue: How confident are you that you can keep the fatigue caused by your disease from interfering with the things you want to do? Select Number: 7 Physical Discomfort or Pain: How confident are you that you can keep the physical discomfort or pain of your disease from interfering with the things you want to do? Select Number: 8 Emotional Distress: How confident are you that you can keep the emotional distress caused by your disease from interfering with the things you want to do? Select Number: 10 Other Symptoms or Health Problems: How confident are you that you can keep other symptoms or health problems from interfering with the things you want to do? Select Number: 8 Different Tasks and Activities: How confident are you that you can do the different tasks and activities needed to manage your health condition so as to reduce your need to see a doctor? Select Number: 10 Medication: How confident are you that you can do things other than just taking medication to reduce how much your illness affects your everyday life? Select Number: 10 Total Score:: 8 Nutrition Survey - Nutrition Survey Instructions Scoring Instructions: Scoring is as follows: Yes = 1 points. No = 0 point. Patient score that is >/=12 is considered to be at potential nutritional risk and could benefit from a referral to a registered dietitian. - Nutrition Survey Initial Have you lost >10 lbs over the past 2 months without trying?: No Are you following a special diet at home for diabetes, low fat, or low salt?: Yes Are you interested in meeting with a dietitian for help understanding your diet?: Yes Do you eat less than 3 meals a day?: No Do you eat fatty meats (tamayo, sausage, ribs, etc), fried foods, desserts, large amounts of salad dressings, margarine, butter, or cheese most days?: No Do you have food allergies? [Enter types in comment field]: No Do you eat in restaurants more than 3 times a week?: No Do you season food with salt, seasoning salt, or garlic salt?: Yes - A LITTLE Do you used canned, boxed, frozen meals, or soups, seasoning packets?: No Total Score:: 3
--- NOTE | 2018-10-04 07:15 | CR.HP_ITS ---
CR - History & Physical - General Arrival date:: 10/04/18 Arrival time:: 07:18 Date of Referral:: 07/16/18 Date of CR Evaluation:: 10/04/18 Referring Physician: Dr. Willis Frey Primary Diagnosis: PTCA, PCI w/coronary stenting - History of Present Cardiac Event Onset Date: Enter Onset Date of cardiac illnesses in Comment field below Coronary Artery Bypass Graft:: Yes - 13 years ago, and then again in 2014 PTCA or coronary stenting:: Yes - 03/15/2018 Heart Failure EF <35%:: No - LVED IS 45-49% Type of Symptoms:: EXPERIENCING CHEST PAINS AT HOME AND SHORTNESS OF BREATH. Cardiac Rehab was postponed following PCI due to patient requiring knee replacem ent and PT following that surgery. He is now recovered and ready to begin his CR. Interventions with present event:: left heart cath, PCI w/coronary stent - Medications Home Medications: Ambulatory Orders Medication Instructions Recorded Aspirin [Aspirin EC] 81 mg PO DAILY 03/15/17 Bupropion HCl [Bupropion HCl ER] 100 mg PO LUNCH 03/15/17 Fluoxetine HCl [Prozac] 20 mg PO TID 03/15/17 Gabapentin [Neurontin] 300 mg PO TID 03/15/17 Insulin Human 70/30 [Novolog Mix 30 units SUBCUT BIDCM 03/15/17 70-30 Flexpen Syrn] Multivitamin [Multiple Vitamins] 1 ea PO DAILY 03/15/17 buPROPion XL [Wellbutrin Xl] 300 mg PO DAILY 03/15/17 Isosorbide Mononitrate [Imdur] 120 mg PO DAILY 01/24/18 Quetiapine Fumarate [Seroquel] 25 mg PO BID 01/24/18 Clopidogrel Bisulfate [Plavix] 75 mg PO DAILY #30 tab 02/20/18 Donepezil HCl [Aricept] 10 mg PO QHS #30 tab 02/20/18 Amlodipine [Norvasc] 10 mg PO DAILY #30 tab 03/16/18 Lisinopril [Zestril] 20 mg PO BID #60 tab 03/16/18 Nitroglycerin (INPATIENT USE) 0.4 mg SUBLINGUAL Q5M PRN #30 tab 03/16/18 [Nitrostat] Pantoprazole Sodium [Protonix] 40 mg PO DAILY #30 tab 03/16/18 ranolazine ER 500 mg 500 mg PO BID #60 tab 03/16/18 tablet,extended release,12 hr metformin 1,000 mg tablet 500 mg PO DAILY tab 06/25/18 isosorbide mononitrate ER 60 mg 90 mg PO QHS tab 07/13/18 tablet,extended release 24 hr metoprolol tartrate 25 mg tablet 12.5 mg PO QHS tab 07/13/18 - Allergies Allergies/Adverse Reactions: Allergies hydrochlorothiazide Allergy (Verified 06/25/18 13:19) Unknown Penicillins [PCN] Allergy (Verified 06/25/18 13:19) Swelling pioglitazone [From Actos] Allergy (Verified 06/25/18 13:19) Unknown oxycodone [From OxyIR] Adverse Reaction (Verified 06/25/18 13:19) Other pravastatin Adverse Reaction (Verified 06/25/18 13:19) Pain in joints - Sleep Disorder Evaluation Hx of Sleep Apnea: No Do you snore loudly (louder than talking or can be heard through closed doors)?: Yes Do you often feel tired/ fatigued/ sleepy during daytime?: Yes Has anyone observed you stop breathing during sleep?: Yes History of Hypertension (for STOP score): Yes STOP Results: Positive Advanced Directives - Advanced Directives Power of Supervisor Elementary Education: No Living Will: No Advance Directives Information Provided: Yes Advance Directives on File: No DNR Order?:: No - MOLST See MOLST form: No Past Medical History - Past Medical Illness Medical History: Past Medical History (Last Reviewed 03/29/18 @ 15:25 by Karley Moon) History of DVT (deep vein thrombosis) (Chronic) Z86.718 Patient was on Xarelto for this, is not presently Nonrheumatic tricuspid (valve) insufficiency (Chronic) I36.1 Mild (1+) per echo 02/17/2018 Secondary pulmonary hypertension (Chronic) Mild, RVSP 45 mmhg per echo 02/17/2018 Grade II diastolic dysfunction (Chronic) I51.9 Per echo 02/17/2018 Systolic and diastolic CHF, acute (Acute) I50.41 EF 45-50% per echo February 2018 Atherosclerotic heart disease of [place] coronary artery without angina pectoris (Chronic) Onset Date: 03/15/18 I25.10 JACI of proximal LCX w/3.0 X 38 Promus Syncergy Non-STEMI (non-ST elevated myocardial infarction) (Acute) Onset Date: 03/15/18 I21.4 HLD (hyperlipidemia) (Chronic) E78.5 HTN (hypertension) (Chronic) I10 Acute blood loss anemia (Acute) D62 DM2 (diabetes mellitus, type 2) (Chronic) E11.9 - Past Surgical History Surgical History: Past Surgical History (Last Updated 10/04/18 @ 07:21 by Adrián Kitchen, BILL DISTRIBUTOR, EMERGENCY GENERATOR MECHANIC, BS) Stented coronary artery (Chronic) Onset Date: 03/15/18 Z95.5 JACI of proximal LCX w/3.0 X 38 Promus Syncergy S/P CABG (coronary artery bypass graft) (Chronic) Onset Date: ~03/10/15 Z95.1 History of total left knee replacement Onset Date: 02/15/18 Z96.652 Surgical History: coronary bypass surgery - Family History Summary Family History: Family History (Last Updated 06/25/18 @ 13:24 by Becca Henry) Father Myocardial infarction ICD (implantable cardioverter-defibrillator) in place Brother Heart disease Social History - Smoking History Smoking Status: Never smoker Hx Tobacco Use: No Hx Smoking Exposure: No - Alcohol Use Alcohol Usage: No - Substance Abuse Hx Substance Use: No - Occupation Occupation (List type of work in comments):: Retired - Hobbies, Recreation, Social Activities Hobbies: Other - Auctions, family reunions, collect coffee mugs of different kinds. Recreational Activities: I am able to engage in most, but not all activities Social Environment - Status Marital Status: - Current Living Arrangements Living Environment:: Spouse - Children How many children do you have?: 5 Do any of your children live nearby?: Yes - Safety Do you feel safe in your surroundings?: Yes - Assistance Do you need any assistance at home?: none Review of Systems - Review of Systems Hints: Right click = Denies (Slash). Left click = Reports ([place]) Review of Present Symptoms: Reports: Shortness of Breath with Exertion - once in a while, but not often., Angina - a little bit; but much improved since the sten t placement., Dizziness/Lightheadedness, Fatigue, Appetite - Normal - back to normal now; at first was a little off., Appetite - Special Diet - Diabetic Diet, low fat, low sodium., Sleep - Normal. Denies: Shortness of Breath at Rest, Heart Arrhythmia/Irregularities, Sexual Changes - Pain Is Patient Pain Free?: No Pain Location: back, lower extremity - Neuropathy in both legs from DM; aslo has a previous lower back injury years ago which causes some lower back pain. Pain Level: 5/10 Risk Factor Assessment - Chief Complaint Chief Complaint: Patient is a 68 yr old male of Dr. Frey who presnts to CR today. He had a previous history of CAD and CABG in 2014, recently underwent a left heart cath and PCI w/coronary stenting in 03/2018. Folloowing his stent, the patient then required left knee replacement and physical therapy which delayed his CR. - Vital Signs Temperature: 98.7 F Respiratory Rate: 18 Pulse Ox: 93 - room air - Pulse Pulse Rate: 73 Pulse Rhythm: Regular - Hypertension Blood Pressure Sitting - Left Arm: 104/52 - Blood Cholesterol/Lipids Total Cholesterol (mg/dL) Goal = less than 200 mg/dL: 221 HDL Cholesterol (mg/dL) Goal = less than 40 mg/dL: 60 LDL Cholesterol (mg/dL) Goal = less than 70 mg/dL: 117 Triglycerides (mg/dL) Goal = less than 150 mg/dL: 218 - Diabetes Diabetic History: Type II - Obesity Height: 5 ft 7 in Weight:: 253 lb Weight in Pounds: 253.0 lbs Weight Source: Standing Scale Body Mass Index (BMI): 39.6 Nutritional Referral for Obesity: Yes - Physical Inactivity Physical Inactivity: None - Risk Stratification Risk Guidelines: Lowest Risk: Risk Factor for Smoking, Risk Factor for Dyslipidemia, Risk Factor for Hypertension, Risk Factor for Depression, Moderate Risk: Risk Factor for Sedentary Lifestyle, Highest Risk: Risk Factor for Diabetes - hba1c 8.0 08/03/2018 - For Smoking Smoking Risk Guidelines: Smoking Low Risk: None or quit greater than 6 months ago. Smoking Moderate Risk: Smoker or quit 6 months or less ago. Smoking High Risk: Smoker - For Dyslipidemia Dyslipidemia Risk Guidelines: Low Risk: Moderate Risk: High Risk: 15-25% fat 25.1-29% fat >/= 30% fat. <7% sat fat 7-9% sat fat >9% sat fat. <150 mg chol 150-299 mg chol >/= 300 mg chol. LDL <100 LDL 100-129 LDL >/= 130. Chol/HDL ratio <5.0 Chol/HDL ratio 5.0-6.0 Chol/HDL ratio >6.0. Triglycerides <100 Triglycerides 100-149 Triglycerides >/= 150 - For Diabetes Mellitus Diabetes Risk Guidelines: Diabetes Low Risk: HgA1c <6.5% and/or FBG <120. Diabetes Moderate Risk: HgA1c 6.6-7.9% and/or FBG 120-180. Diabetes High Risk: HgA1c >/= 8% and/or FBG >180 - For Obesity/Overweight Obesity/Overweight Risk Guidelines: Obesity Low Risk: BMI <25.0. Obesity Moderate Risk: BMI 25-29.9. Obesity High Risk: BMI >/= 30.0 - For Hypertension Hypertension Risk Guidelines: Hypertension Low Risk: Systolic <120 and Diastolic <80. Hypertension Moderate Risk: Systolic 120-139 and Diastolic 80-89. Hypertension High Risk: Systolic >/= 140 and Diastolic >/= 90 - For Sedentary Lifestyle Sedentary Lifestyle Risk Guidelines: Sedentary Lifestyle Low Risk: >/= 1,500 kcal/week. Sedentary Lifestyle Moderate Risk: 700-1,499 kcal/week. Sedentary Lifestyle High Risk: < 700 kcal/week - For Depression Depression Risk Guidelines: Depression Low Risk: Not clinically depressed. Depression Moderate Risk: Mildly depressed. Depression High Risk: Clinically depressed - Family History Family History: Family History (Last Updated 06/25/18 @ 13:24 by Becca Henry) Father Myocardial infarction ICD (implantable cardioverter-defibrillator) in place Brother Heart disease Motivation - Motivation to Participate On a scale of 1 to 10, how prepared are you to commit to attending program?: 10 What do you see as barriers to successfully being able to complete the program?: lower back pain and the neuropathy in lower legs. What do you see as the benefits of succesfully completing the program? In other words, what do you hope to get out of participating in the program?: getting st ronger, being healthier. Are there issues you are dealing with that will interfere with completing the program?: none Do you have a spouse or signficant other, family or friends who will help support you to complete the program?: Yes
[2018-10-04 08:14] VITALS: BP 104/52; PULSE 73; RESP 18; TEMP 37.1; O2SAT 93; BMI 39.6
[2018-10-04 08:16] VITALS: BP 104/52
== END | disposition home or self-care (01) ==
LOC: CR 07:03
PROVIDERS: Family Provider Family Medicine; PCP Family Medicine; Referring Provider Internal Medicine Cardiovascular Disease; Visit Provider Internal Medicine Cardiovascular Disease
DX: Z95.5 Presence of coronary angioplasty implant and graft (principal)

== ENCOUNTER 2018-10-08 08:57 | Outpatient (RCR) | payer MEDICARE, MEDICAID, SELFPAY ==
[2018-03-15 12:56] VITALS: BMI 37.7
[2018-10-04 07:52] VITALS: BMI 39.6
[2018-10-05 09:57] VITALS: BMI 39.6
== END 2018-11-07 23:59 ==
LOC: CR 08:57
PROVIDERS: Family Provider Family Medicine; PCP Family Medicine; Referring Provider Internal Medicine Cardiovascular Disease; Visit Provider Internal Medicine Cardiovascular Disease
DX: I25.10 Atherosclerotic heart disease of native coronary artery without angina pectoris (principal); I50.41 Acute combined systolic (congestive) and diastolic (congestive) heart failure; Z95.5 Presence of coronary angioplasty implant and graft
CPT/HCPCS: 93798

== ENCOUNTER → 2018-10-24 | Outpatient (CLI) | payer MEDICARE, MEDICAID, SELFPAY ==
[2018-03-15 12:56] VITALS: BMI 37.7
[2018-10-05 09:57] VITALS: BMI 39.6
[2018-10-24 10:18] LABS: Hemoglobin A1c 8.7 % (4.2-6.3)
[2018-10-24 10:19] LABS: AST(SGOT) 29 U/L (15-37); Alanine Aminotransfer ALT/SGPT 30 U/L (16-61); Albumin, Serum 3.8 g/dL (3.2-5.0); Alkaline Phosphatase 65 U/L (45-117); Anion Gap 5 (5-15); BUN 24 mg/dL (7-18); BUN/Creat Ratio 18.8 RATIO (10-20); Chloride 102 mmol/L (98-107); Creatinine, Serum 1.28 mg/dL (0.70-1.30); EST Glomerular Filtration Rate 59 mL/min (>60); Est Glom Filt Rate - Afr Amer 72 mL/min (>60); Globulin 3.7 g/dL (2.2-4.2); Glucose 216 mg/dL (74-106); Potassium 4.3 mmol/L (3.5-5.1); Protein, Total 7.5 g/dL (6.4-8.2); Sodium Level 140 mmol/L (136-145)
[2018-10-24 10:33] LABS: Microalbumin,Random Urine < 5.0 mg/L (NO RANGE EST.)
== END | disposition home or self-care (01) ==
LOC: LAB.FUTURE 08:37
PROVIDERS: Family Provider Family Medicine; PCP Family Medicine; Referring Provider Internal Medicine Endocrinology, Diabetes & Metabolism; Visit Provider Internal Medicine Endocrinology, Diabetes & Metabolism
DX: E11.9 Type 2 diabetes mellitus without complications (principal)
CPT/HCPCS: 36415; 80053; 82043; 82570; 83036

== ENCOUNTER → 2018-11-01 | Outpatient (CLI) | payer MEDICARE, MEDICAID, SELFPAY ==
[2018-03-15 12:56] VITALS: BMI 37.7
[2018-10-05 09:57] VITALS: BMI 39.6
--- NOTE | 2018-11-01 09:05 | STEWCON_ITS ---
Reason For Study: CAD, Chest Pain Stress Results Protocol: Dobutamine Stress Echo Maximum Predicted HR: 152 bpm Target HR: 129 bpm % Maximum Predicted HR: 95 % Heart Stage Duration Rate BP Comment (mm:ss) (bpm) Baseline 58 156/87No Chest Pain; Diluted Definity 10 ML Given DSE 10 MCG 4:16 59 131/74No Chest Pain DSE 20 MCG 3:00 86 143/73No Chest Pain DSE 30 MCG 3:00 100 156/68No Chest Pain DSE 40 MCG 3:49 144 136/97No Chest Pain; Atropine 0.5 MG IVP 6/10 Chest Pain Immediately Into Recovery, Resolved 10 Minutes Recovery 78 125/79Into Recovery Stress Duration: 14:05 mm:ss Maximum Stress HR: 144 bpm METS: 1 Baseline Echocardiogram Findings The estimated ejection fraction is 65 %. Stress Echo Wall motion Data Resting WM Intermediate WM Stress WM Resting Wall Motion Wall Motion Stress No regional wall motion Lateral-Basal: Severely abnormalities noted. Hypokinetic. Mid-Lateral : Severely Hypokinetic. Basal anteroseptal: Mildly hypokinetic. EKG Data Normal intervals are noted. The patient was titrated from 10 mcg to a maximum of 40 mcg of dobutamine during the stress. The maximum heart rate attained was 144 beats per minute. This was 94% of maximum predicted heart rate. During dobutamine infusion, there were no ST or T wave changes noted to suggest ischemia. No clinical angina was noted. Interpretation Summary The estimated ejection fraction is 65 %. Lateral-Basal: Severely Hypokinetic. Mid-Lateral : Severely Hypokinetic. Basal anteroseptal: Mildly hypokinetic Abnormal, adequate, dobutamine echocardiogram. Positive for ischemia by echocardiographic criteria. No anginal symptoms noted. Rare PACs and PVCs noted. The patient appeared to develop mild mid anterior septal hypokinesis, as well as moderate to severe lateral basal hypokinesis. Final LVEF of 55%. Test terminated due to attainment of target heart rate. Pulmonary echo results reviewed by myself, patient referred to our office for scheduling of catheterization. No complications. The study was technically difficult. Contrast injection was performed. Ordering Physician: Willis Frey Referring Physician: Juve Reed Performed By: Payton Garay, FAWAD, RVT
--- NOTE | 2018-11-01 10:39 | RAD_ITS ---
STUDY: X-RAY CHEST REASON FOR EXAM: Male, 68 years old. Acute substernal chest pain TECHNIQUE: PA and lateral views of the chest. COMPARISON: 03/13/2018 FINDINGS: There are interstitial fibrotic changes of the lungs. There is no demonstrated pleural abnormality. Sternal cerclage wires and vascular clips are present from a prior sternotomy and coronary artery bypass graft procedure (CABG). Normal mediastinum and sami. Normal visualized pulmonary arteries. There is atherosclerotic calcification of the aortic arch with tortuosity. There are diffuse degenerative changes of the visualized thoracic spine. Normal visualized ribs, clavicles, and shoulders. There is no demonstrated abnormality of the visualized soft tissue structures of the upper abdomen. RAD/Chest PA and Lateral IMPRESSION: Degenerative changes, as described above. No demonstrated acute cardiopulmonary process. Electronically Signed: Jerrell Padilla MD at 11:23 EDT , Service support ,
--- NOTE | 2018-11-01 10:40 | RAD_ITS ---
STUDY: X-RAY - LUMBOSACRAL SPINE REASON FOR EXAM: Male, 68 years old. Low back pain TECHNIQUE: 6 view(s) of the lumbosacral spine were obtained. COMPARISON: None FINDINGS: Normal lumbar lordosis. There is no substantial scoliosis. There is normal alignment of the vertebrae. There is multilevel endplate spondylosis of the lumbar vertebrae. There is multi-level degenerative disc disease with multi-level disc space narrowing. No evidence of instability on the flexion or extension views. Normal bilateral sacral ala, sacroiliac joints, and visualized sacrum. There is atherosclerotic calcification of the abdominal aorta without a demonstrated aneurysm. RAD/L/S Spine Comp/w Bending Views IMPRESSION: Degenerative changes of the spine, as detailed above. Electronically Signed: Jerrell Padilla MD at 11:29 EDT , Service support ,
[2018-11-01 11:56] LABS: Hemoglobin 12.6 g/dL (13.0-16.5); Mean Corp Hgb Conc 32.3 g/dL (32-36); Mean Corpuscular Hgb 28.5 pg (27.0-32.0); Mean Corpuscular Volume 88.2 fL (80-94); Mean Platelet Vol. 12.2 fl (6.2-12.0); Platelet Count 232 K/mm3 (150-450); RBC Distribution Width CV 14.1 % (11.6-14.6); RBC Distribution Width SD 45.5 fl (35.1-43.9); Red Blood Count 4.42 M/mm3 (4.6-6.2); White Blood Count 5.3 K/mm3 (4.4-11.0)
[2018-11-01 12:20] LABS: International Normalized Ratio 1.1; Prothrombin Time (Protime)PT. 13.8 SECONDS (11.7-14.9)
[2018-11-01 12:21] LABS: Partial Thromboplast Time 28.5 Seconds (24.1-36.2)
[2018-11-01 12:43] LABS: Anion Gap 10 (5-15); BUN 13 mg/dL (7-18); BUN/Creat Ratio 10.6 RATIO (10-20); Calcium,Total 9.1 mg/dL (8.5-10.1); Chloride 102 mmol/L (98-107); Creatinine, Serum 1.23 mg/dL (0.70-1.30); EST Glomerular Filtration Rate 62 mL/min (>60); Est Glom Filt Rate - Afr Amer 75 mL/min (>60); Glucose 257 mg/dL (74-106); Sodium Level 139 mmol/L (136-145)
== END | disposition home or self-care (01) ==
PROVIDERS: Family Provider Family Medicine; PCP Family Medicine; Referring Provider Internal Medicine Cardiovascular Disease; Visit Provider Internal Medicine Cardiovascular Disease
DX: I25.10 Atherosclerotic heart disease of native coronary artery without angina pectoris (principal); I36.1 Nonrheumatic tricuspid (valve) insufficiency; I21.4 Non-ST elevation (NSTEMI) myocardial infarction; E78.5 Hyperlipidemia, unspecified; I11.0 Hypertensive heart disease with heart failure; I50.41 Acute combined systolic (congestive) and diastolic (congestive) heart failure; M54.16 Radiculopathy, lumbar region; Z95.1 Presence of aortocoronary bypass graft; Z95.5 Presence of coronary angioplasty implant and graft
CPT/HCPCS: 36415; 71046; 72114; 80048; 85027; 85610; 85730; 93017; 93350; J7040; Q9957; A4216; C8928

== ENCOUNTER 2018-11-07 06:41 | Day surgery (SDC) | payer MEDICARE, MEDICAID, SELFPAY ==
[2018-03-15 12:56] VITALS: BMI 37.7
[2018-10-05 09:57] VITALS: BMI 39.6
[2018-11-06 08:43] VITALS: BMI 38.5
--- NOTE | 2018-11-06 16:58 | HP.PCM_ITS ---
History and Physical Date of Admission: 11/07/18 The patient is a 68 year old male with a past cardiovascular history which is included hyperlipidemia, hypertension, diabetes mellitus, CAD, status post CABG, who presents for evaluation of chest/abdominal discomfort with subsequent findings of abnormal cardiac enzymes superimposed on hypertensive urgency and admitted to [facility] on 03/13/18. The patient has been following with his primary associate professor of radiology at [facility] in [place], [place]. However he has been evaluated at [facility] on 02/17/2018 by Willis Frey MD of the [facility] for his cardiovascular condition. At that time he underwent evaluation with a transthoracic echocardiogram that demonstrated the left ventricle to have regional wall motion abnormalities with an LVEF of 45-50% with moderate left atrial enlargement, trivial MR, mild TR, and an estimated RV systolic pressure of 45 mmHg. He also underwent diagnostic cardiac catheterization which demonstrated the left ventricle to have an LVEF of 55%, the left main coronary artery had 40% stenosis, the LAD was occluded, the LCx had mid 50% stenosis, the RCA was occluded, a FLANNERY to the first diagonal branch was patent, and SVG graft to the left PDA was patent. Continued medical management. He states he has been in contact with his primary associate professor of radiology since that time including yesterday based upon his ongoing symptoms concerns and recommended increase of his nitrate therapy. He notes that his blood pressure has been difficult to control. It has been elevated. His family states that when his blood pressure is elevated he appears to be more symptomatic. He presented back to [facility] on 03/13/18 for further evaluation. He was noted to have a markedly elevated systolic blood pressure of 212 mmHg with a diastolic blood pressure of 104 mmHg. He was placed in the PCU for further evaluation. His cardiac enzymes have been indeterminant. His ECG has demonstrated sinus rhythm with no acute ECG changes. A chest x-ray was performed which raised concerns of a right lower lobe infiltrate/pneumonia. He was placed on medical management which included IV antibiotic therapy. The patient's chest pain symptoms and questionable stenosis in his left circumflex, he underwent successful angioplasty and drug-eluting stent to his left circumflex on 03/15/18, receiving 3.0 x-38 Promus Synergy stent, postdilated at various points between 3.3 and 3.5 mm. The patient is now here in follow-up. Patient felt much better after his angioplasty, but unfortunately due to his knee he was unable to participate in cardiac rehab. Patient recently underwent left knee surgery, and is now scheduled for starting cardiac rehab in the near future. However, since his last visit he has had progressively worsening fatigue, tiredness, excessive snoring, daytime somnolence, and worsening lower extremity edema. He is also had occasional chest pressure which is of less intensity but similar to his previous angina. He is also on Pletal therapy supposedly for peripheral vascular disease and claudication although he is never had PVRs He has never had a sleep study. Intake Vital Signs: See EMR Intake Visit Reasons: Abnormal Stress test Allergies hydrochlorothiazide Allergy (Verified 10/05/18 10:08) Unknown Penicillins [PCN] Allergy (Verified 10/05/18 10:08) Swelling pioglitazone [From Actos] Allergy (Verified 10/05/18 10:08) Unknown oxycodone [From OxyIR] Adverse Reaction (Verified 10/05/18 10:08) Other pravastatin Adverse Reaction (Verified 10/05/18 10:08) Pain in joints Medications Aspirin [Aspirin EC] 81 mg PO DAILY 03/15/17 [History Confirmed 10/05/18] Bupropion HCl [Bupropion HCl ER] 100 mg PO LUNCH 03/15/17 [History Confirmed 10/05/18] Fluoxetine HCl [Prozac] 20 mg PO TID 03/15/17 [History Confirmed 10/05/18] Gabapentin [Neurontin] 300 mg PO TID 03/15/17 [History Confirmed 10/05/18] Multivitamin [Multiple Vitamins] 1 ea PO DAILY 03/15/17 [History Confirmed 10/05/18] buPROPion XL [Wellbutrin Xl] 300 mg PO DAILY 03/15/17 [History Confirmed 10/05/18] Isosorbide Mononitrate [Imdur] 120 mg PO DAILY 01/24/18 [History Confirmed 10/05/18] Quetiapine Fumarate [Seroquel] 25 mg PO BID 01/24/18 [History Confirmed 10/05/18] Clopidogrel Bisulfate [Plavix] 75 mg PO DAILY #30 tab 02/20/18 [Rx Confirmed 10/05/18] Donepezil HCl [Aricept] 10 mg PO QHS #30 tab 11/13/18 [Rx Confirmed 10/05/18] Amlodipine [Norvasc] 10 mg PO DAILY #30 tab 03/16/18 [Rx Confirmed 10/05/18] Lisinopril [Zestril] 20 mg PO BID #60 tab 03/16/18 [Rx Confirmed 10/05/18] isosorbide mononitrate ER 60 mg tablet,extended release 24 hr 90 mg PO QHS tab 07/13/18 [Rx Confirmed 10/05/18] metoprolol tartrate 25 mg tablet 12.5 mg PO QHS tab 07/13/18 [History Confirmed 10/05/18] cilostazol 100 mg tablet 100 mg PO BID 10/05/18 [History Confirmed 10/05/18] furosemide 20 mg tablet 20 mg PO DAILY #90 tab 10/05/18 [Rx Confirmed 10/05/18] insulin aspar prot-insulin aspart 100 unit/mL (70-30) subcutaneous pen See Rx Instructions SUBCUT .ac ml 10/05/18 [History Confirmed 10/05/18] nitroglycerin 0.4 mg sublingual tablet 0.4 mg SUBLINGUAL Q5-15M PRN #25 tab 10/05/18 [Rx Confirmed 10/05/18] [facility] Medical History History of DVT (deep vein thrombosis) (Chronic) Nonrheumatic tricuspid (valve) insufficiency (Chronic) Secondary pulmonary hypertension (Chronic) Grade II diastolic dysfunction (Chronic) Systolic and diastolic CHF, acute (Acute) Atherosclerotic heart disease of [place] coronary artery without angina pectoris (Chronic 03/15/18) Non-STEMI (non-ST elevated myocardial infarction) (Acute 03/15/18) HLD (hyperlipidemia) (Chronic) HTN (hypertension) (Chronic) Acute blood loss anemia (Acute) DM2 (diabetes mellitus, type 2) (Chronic) Surgical History Stented coronary artery (Chronic 03/15/18) S/P CABG (coronary artery bypass graft) (Chronic ~03/10/15) History of total left knee replacement (Chronic 02/15/18) Family History Father Myocardial infarction ICD (implantable cardioverter-defibrillator) in place Brother Heart disease Social History (Updated 10/05/18 @ 10:37 by Willis Frey MD) Smoking Status: Never smoker alcohol intake: never caffeine: Yes Type: coffee Number of servings: 1 ROS Const Const: Positive for fatigue and other; negative for weakness, body ache, fever(s), headache(s), chills, frequent falls, night sweats, daytime sleepiness, difficulty sleeping, excessive sweating, weight gain, weight loss, increased appetite, poor appetite or anorexia Eyes Eyes: Negative for blind spots, loss of peripheral vision, transient loss of vision, blurry vision, change in vision, double vision, floaters, tunnel vision or other ENT ENT: Negative for headache(s), dizziness, hearing loss, tinnitus, Nosebleed/epistaxis, balance problems, post nasal drip, lip swelling, tongue swelling, bleeding gums, hoarseness, neck pain, dry mouth or other Cardio Chest Pain: No Palpitations: No Edema: Bilateral Muscle aches with walking: Bilateral Resp Respiratory: Negative for SOB with activity, SOB at rest, SOB orthopnea\SOB lying down, Cough, Coughing up blood/hemoptysis, chest congestion, pain on inspiration, snoring, stridor, wheezing, crackles, paroxysmal nocturnal dyspnea or other GI GI: Negative nausea, vomiting, heartburn, constipation, belching, bloating, cramping, vomiting blood/hematemesis, bright, red blood in stools, black,tarry stools, loose stools, Difficulty Swallowing or other : Negative for hematuria, frequent nighttime urination/ nocturia, erectile dysfunction or abnormal vaginal bleeding Musc Musc: Negative for muscle aches/ myalgia, muscle weakness, joint pain or balance problems Skin Skin: Negative redness, non-healing lesions, rash, unusual bruising, skin ulcer, wounds, jaundice or other Neuro Neuro: Negative for dizziness, lightheadedness, near syncope, syncope, orthostatic symptoms, frequent falls, headache(s), weakness, confusion, memory loss, restless legs, blurry vision, double vision, vertigo, seizures, lack of coordination or other [place] Hematologic/Lymphatic: Negative for easy bleeding, easy bruising, enlarged lymph nodes or other Endo Endo: Positive for fatigue; negative for cold intolerance, heat intolerance, excessive sweating, flushing, increased thirst/drinking, increased hunger, hair loss, hair growth or other Psych Psych: Negative for anxiety, depression, thoughts of harming anyone, thoughts of harming yourself, visual hallucinations, panic attacks or audible hallucinations Allergy Allergy/Immunology: Negative for throat swelling, Negative for tongue swelling, Negative for hives, Negative for rash, Negative for lip swelling Cardiology Exam Const Appearance: cooperative, healthy appearing and no acute distress Nutritional Appearance: well nourished Orientation: alert, oriented x3 and oriented to person Head Head: normal to inspection, normocephalic and atraumatic Nose: external nose normal Face and Sinus: face symmetric Mouth: oral mucosae normal Eyes General: appearance normal, both eyes and all related structures Eyelids: eyelids normal Conjunctivae: conjunctivae normal Pupils: PERRL and normal by confrontation EOM: EOM intact bilaterally Neck Neck: normal visual inspection and full ROM Carotids: normal carotid upstroke Chest Chest inspection: normal inspection of the chest Auscultation: Bilateral: Clear to Auscultation Cardio Palpation: normal PMI Rate: regular rate Rhythm: regular rhythm Heart sounds: S1 normal and S2 normal GI GI: normal to inspection, no hepatosplenomegaly and bowel sounds present Neuro General: alert, awake, oriented x3, CN's II-XI intact bilaterally and moves all extremities Skin Skin: no rashes or lesions noted Extremities Pulses: Normal: Right Femoral Pulse, Left Femoral Pulse, Right Dorsalis Pedis Pulse, Left Dorsalis Pedis Pulse, Right Posterior Tibial Pulse, Left Posterior Tibial Pulse, Right Radial Pulse, Left Radial Pulse Lower Extremity Edema: +1: Bilateral Psych Psychological: normal affect Assessment & Plan 1. Atherosclerosis of [place] coronary artery of [place] heart without angina pectoris I25.10 JACI of proximal LCX w/3.0 X 38 Promus Syncergy Plan 1. Coronary artery disease: Patient underwent a stress echocardiogram on 11/01/2018. This was considered to be an abnormal, adequate, dobutamine echocardiogram. It was positive for ischemia by echocardiographic criteria. No anginal symptoms were noted. His final LVEF was noted to be 55 mmHg. Because of the abnormal stress test, he will undergo left heart catheterization for further evaluation. He does have a previous history of drug-eluting stent to proximal LCx. Depending on results of his heart catheterization further recommendation will be made. 2. HLD (hyperlipidemia) E78.5 Plan 2. Hyperlipidemia: His LDL and HDL cholesterol are at goal. Unfortunately the patient is unable to tolerate statins due to joint aches, we will repeat his lipid profile in January 2019. 3. Secondary pulmonary hypertension Mild, RVSP 45 mmhg per echo 02/17/2018 Plan 3. Pulmonary hypertension: Patient has evidence of pulmonary hypertension on echocardiogram with an RVSP of 45mmHg. It has been recommended that he undergo a sleep study for further evaluation previously. 4. Claudication of both lower extremities I73.9 Plan 4. Claudication: The patient complains of exertional claudication symptoms of bilateral lower extremities and actually was placed on Pletal, but is never had PVRs. He was referred to Vascular Surgery team at last office visit. Diagnoses Atherosclerosis of [place] coronary artery of [place] heart without angina pectoris I25.10 [place] vs. transplanted heart: [place] heart HLD (hyperlipidemia) E78.5 Secondary pulmonary hypertension Claudication of both lower extremities I73.9 Supplemental Info Supplemental Information Labs LDL Cholesterol 117 mg/dL (0-130) 07/16/18 HDL Cholesterol 60 mg/dL (40-) 07/16/18 Triglycerides 218 mg/dL (-199) H 07/16/18 VLDL Cholesterol 44 mg/dL (5-40) H 07/16/18 Diagnostics Electrocardiogram 03/16/18 Echocardiogram 02/17/18 Cardiac Catheterization 02/20/18 Chest X-Ray 03/13/18
[2018-11-07 07:25] LABS: Bedside Glucose 175 mg/dL (70-110)
--- NOTE | 2018-11-07 08:32 | CL.D_ITS ---
Patient Name: JHONNY GRIJALVA Study Date: 11/07/2018 Performing: Willis Frey MD Ht: 67 inches 170.18 cm : 1950 Wt: 245.99 lbs 111.58 kg Age: 68 Gender: male BSA: 2.21 PROCEDURE(S) PERFORMED [id number]/COR/LV/CABG CLINICAL PROFILE AND INDICATIONS Indications: Stable Known CAD, LV Dysfunction, Other; Abnormal stress test, Myocarditis Heart Failure: NYHA Class: 1, Newly Diagnosed: No, Heart Failure Type: Systolic Stress/Imaging Date: 11/01/2018Stress Echocardiogram: Positive Low Risk Angina Classification Anginal Classification w/in 2 Weeks: No symptoms CAD Presentations: Other: Dyspnea on exertion. Comorbidities/Risk Factors: Hypertension Dyslipidemia Prior CABG Prior PCI Diabetes Mellitus: Diabetes Therapy: Oral CONCLUSIONS Segmented LV systolic dysfunction- Moderate LVEF: by LV gram 55 % Double vessel CAD of the LAD, LCX Widely patent FLANNERY To LAD Occluded SVG to LCX system Widely patent SVG to PDA. RECOMMENDATIONS Management as per referring Rn Plastic Surgery Risk factor modification Medical management. Manual sheath removal. Continue asa/plavix DESCRIPTION OF PROCEDURE The patient arrived to the procedure lab. The risks and benefits of the procedure as well as a full d escription of our services here and current unavailability of surgical backup were fully explained to the patient and/or their significant other prior to the catheterization. The Timeout was completed, verifying the correct patient and procedure. The patient's procedural site was prepped and draped in the usual fashion. Local anesthetic was given subcutaneously to right groin region with Lidocaine 2%. Using a modified Seldinger technique, arterial access was obtained via the right femoral artery, a 4 Fr sheath was inserted Left Coronary Artery selective angiography was performed in multiple views us ing a 4 Fr. JL5 catheter. Right Coronary Artery selective angiography was then performed in multiple views using a 4 Fr. 3DRC catheter. Saphenous Vein graft to the RPDA selective angiography was perform ed in multiple views using a 4 Fr. 3DRC catheter. Left internal mammary artery graft to the DIAG 1 selective angiography was performed in multiple views using a 4 Fr. 3DRC catheter. Left Ve ntriculography was performed in GRIGSBY projection using a 4 Fr. Pigtail catheter. LV to AO pullback pres sures were then recorded.The arterial sheath was pulled and manual compression applied until hemostas is is achieved. CORONARY ANGIOGRAPHY DOMINANCE: Right Dominant LEFT HEART ASSESSMENT Left Ventricular Ejection Fraction: by LV Gram 55 % Posterior Basal Hypokinesis - Moderate Depressed Left Ventricular systolic function LVEDP: 14 mmHg LEFT MAIN: Previously placed stent is patent LEFT ANTERIOR DESCENDING ARTERY: is occluded CIRCUMFLEX ARTERY: Previously placed stent is patent RIGHT CORONARY ARTERY: is occluded GRAFTS: FLANNERY graft to the Mid LAD is patent Saphenous Vein graft to the RPDA is patent Saphenous Vein graft to the CIRC is totally occluded COMPLICATIONS No Complications PROCEDURE MEDICATIONS Oxygen: 2 L/min via nasal cannula Baby Aspirin (81mg) 1 Tabs PO @ 11/07/2018 07:00:28 SUMMARY OF HEMODYNAMIC DATA Time AIR REST ECG 07:12:09 AO 134/61 (85) SA 07:58:56 LV 115/-3, 12 08:12:54 LV 115/-6, 16 08:13:01 LVp 127/-11, 10 08:13:06 AOp 129/53 (81) 08:13:11 Signed By Willis Frey MD On 11/07/2018 08:31:42 Willis Frey MD
== END 2018-11-07 12:50 | disposition home or self-care (01) ==
LOC: CLSP 06:42
PROVIDERS: Family Provider Family Medicine; PCP Family Medicine; Referring Provider Internal Medicine Cardiovascular Disease; Visit Provider Internal Medicine Cardiovascular Disease
DX: I25.10 Atherosclerotic heart disease of native coronary artery without angina pectoris (principal); R06.09 Other forms of dyspnea; I11.0 Hypertensive heart disease with heart failure; I50.41 Acute combined systolic (congestive) and diastolic (congestive) heart failure; E78.5 Hyperlipidemia, unspecified; E11.9 Type 2 diabetes mellitus without complications; I27.20 Pulmonary hypertension, unspecified; I25.2 Old myocardial infarction; I73.9 Peripheral vascular disease, unspecified; Z95.1 Presence of aortocoronary bypass graft; Z79.4 Long term (current) use of insulin; Z79.82 Long term (current) use of aspirin; Z79.02 Long term (current) use of antithrombotics/antiplatelets; Z79.899 Other long term (current) drug therapy; Z86.718 Personal history of other venous thrombosis and embolism
CPT/HCPCS: 82962; 93459; J7040; Q9967; C1769; C1894

== ENCOUNTER 2018-11-09 06:46 | Outpatient (RCR) | payer MEDICARE, MEDICAID, SELFPAY ==
[2018-03-15 12:56] VITALS: BMI 37.7
[2018-11-06 08:43] VITALS: BMI 38.5
== END 2018-12-08 23:59 ==
LOC: CR 06:46
PROVIDERS: Family Provider Family Medicine; PCP Family Medicine; Referring Provider Internal Medicine Cardiovascular Disease; Visit Provider Internal Medicine Cardiovascular Disease
DX: I25.10 Atherosclerotic heart disease of native coronary artery without angina pectoris (principal); I50.41 Acute combined systolic (congestive) and diastolic (congestive) heart failure; Z95.5 Presence of coronary angioplasty implant and graft
CPT/HCPCS: 93798

== ENCOUNTER → 2018-11-16 21:02 | Outpatient (CLI) | payer MEDICARE, MEDICAID, SELFPAY ==
[2018-03-15 12:56] VITALS: BMI 37.7
[2018-10-05 09:57] VITALS: BMI 39.6
[2018-11-06 08:43] VITALS: BMI 38.5
== END ==
PROVIDERS: Family Provider Family Medicine; PCP Family Medicine; Visit Provider Internal Medicine Cardiovascular Disease
DX: G47.10 Hypersomnia, unspecified (principal); I27.20 Pulmonary hypertension, unspecified
CPT/HCPCS: 95810

== ENCOUNTER → 2018-11-26 | Outpatient (CLI) | payer MEDICARE, MEDICAID, SELFPAY ==
[2018-03-15 12:56] VITALS: BMI 37.7
[2018-11-06 08:43] VITALS: BMI 38.5
--- NOTE | 2018-11-26 08:25 | AAVD_ITS ---
Reason For Study: aortic atherosclerosis Aorta Measurements Aorta Doppler Measurements Proximal aorta measures1.88 x 2.00cm. in cross- Peak systolic flow velocities within the proximal sectional axis. aorta measure 59.8 cm/sec. Proximal aorta measures1.98cm. in longitudinal Peak systolic flow velocities within the mid aorta axis. measure 51.4 cm/sec. Mid aorta measures1.83 x 1.88cm. in cross- Peak systolic flow velocities within the distal sectional axis. aorta measure 47.1 cm/sec. Mid aorta measures1.86cm. in longitudinal axis. Distal aorta measures1.77 x 1.78cm. in cross- sectional axis. Distal aorta measures1.74cm. in longitudinal axis. Left Iliac Artery Left iliac artery measures 1.26 x 1.21 cm. in the cross-sectional axis. Left iliac artery measures 1.2 cm. in the longitudinal axis. Peak systolic velocity in the left iliac artery measures 65.1 cm/sec. Right Iliac Artery Unable to visualize RT Iliac artery due to obesity and bowel gas. Procedure Aorta IVC Iliac vasculature or bypass grafts 57151. Technically difficult study due to obesity and bowel gas. Exam performed in department. Interpretation Summary 1. no evidence of aortoiliac occlussive disease or aneurysm where visualized. Ordering Physician: Kj Barnhart Referring Physician: Juve Reed Performed By: Lana Russell, RDCS, RVT
--- NOTE | 2018-11-26 08:26 | ART_ITS ---
Reason For Study: atherosclerosis of BLE with intermittent claudication Procedure A bilateral lower extremity continuous wave Doppler with analog waveform analysis,segmental pressures,and ankle brachial indexes without exercise. Left Segmental Pressures Left brachial= 190mmHg. Left posterior tibial artery = 137mmHg. Left dorsalis pedis artery = 141mmHg. Left digit = 134 mmHg. The left dorsalis pedis waveforms are biphasic. The left posterior tibial artery waveforms are biphasic. Right Segmental Pressures Right brachial= 183mmHg. Right posterior tibial artery = 207mmHg. Right dorsalis pedis artery = 167mmHg. Right digit = 140 mmHg. The right dorsalis pedis waveforms are biphasic. The right posterior tibial artery waveforms are biphasic. Indices The right ankle brachial index by the dorsalis pedis is 0.88. The right ankle brachial index by the posterior tibial artery is 1.09. The right digital-brachial index is 0.74. The left ankle brachial index by the dorsalis pedis is 0.74. The left ankle brachial index by the posterior tibial artery is 0.72. The left digital-brachial index is 0.71. Interpretation Summary 1. Right leg with bipasic flow and SHANNON 1.09. 2. Left leg with biphasic flow and SHANNON 0.74. Ordering Physician: MD Kj Barnhart Referring Physician: Kj Barnhart Performed By: Lana Russell RVT, RDCS
== END | disposition home or self-care (01) ==
LOC: CVS 08:24
PROVIDERS: Family Provider Family Medicine; PCP Family Medicine; Referring Provider Surgery Vascular Surgery; Visit Provider Surgery Vascular Surgery
DX: I70.213 Atherosclerosis of native arteries of extremities with intermittent claudication, bilateral legs (principal); I77.1 Stricture of artery
CPT/HCPCS: 93922; 93978

== ENCOUNTER → 2019-01-07 | Outpatient (CLI) | payer MEDICARE, MEDICAID, SELFPAY ==
[2018-03-15 12:56] VITALS: BMI 37.7
[2019-01-07 07:55] VITALS: BMI 39.1
[2019-01-07 11:40] LABS: Hemoglobin A1c 7.7 % (4.2-6.3)
[2019-01-07 11:48] LABS: BUN 24 mg/dL (7-18); Creatinine, Serum 1.19 mg/dL (0.70-1.30); Glucose 217 mg/dL (74-106)
[2019-01-07 11:49] LABS: ALB/GLOB Ratio 1.1 RATIO (0.9-2.4); AST(SGOT) 26 U/L (15-37); Alanine Aminotransfer ALT/SGPT 35 U/L (16-61); Albumin, Serum 3.7 g/dL (3.2-5.0); Alkaline Phosphatase 60 U/L (45-117); Anion Gap 7 (5-15); BUN/Creat Ratio 20.2 RATIO (10-20); Bilirubin, Direct 0.15 mg/dL (0.00-0.30); Calcium,Total 8.6 mg/dL (8.5-10.1); Chloride 102 mmol/L (98-107); Cholesterol 228 mg/dL (200); EST Glomerular Filtration Rate 65 mL/min (>60); Est Glom Filt Rate - Afr Amer 78 mL/min (>60); Globulin 3.5 g/dL (2.2-4.2); High Density Lipoprotein 66 mg/dL; Potassium 4.3 mmol/L (3.5-5.1); Protein, Total 7.2 g/dL (6.4-8.2); Sodium Level 139 mmol/L (136-145); Thyroid Stim Hormone (TSH) 1.12 uIU/mL (0.358-3.74); Triglycerides 189 mg/dL; Very Low Density Lipoprotein 38 mg/dL (5-40)
== END | disposition home or self-care (01) ==
LOC: LAB 09:15
PROVIDERS: Family Provider Family Medicine; PCP Family Medicine; Referring Provider Internal Medicine Cardiovascular Disease; Visit Provider Internal Medicine Cardiovascular Disease
DX: E78.5 Hyperlipidemia, unspecified (principal); E11.9 Type 2 diabetes mellitus without complications
CPT/HCPCS: 36415; 80053; 80061; 82248; 83036; 84443

== ENCOUNTER → 2019-02-27 07:45 | Outpatient (CLI) | payer MEDICARE, MEDICAID, SELFPAY ==
[2018-03-15 12:56] VITALS: BMI 37.7
[2019-01-07 07:55] VITALS: BMI 39.1
[2019-02-20 09:16] VITALS: BMI 39.1
--- NOTE | 2019-02-28 08:14 | PFT ---
INTRODUCTION: The patient is a 68-year-old male that presents for pulmonary function studies secondary to a diagnosis of dyspnea. Respiratory therapy reports that the patient struggled with directions on DLCO and FVL. Bronchodilators were used during testing. INTERPRETATION: Forced expiration spirometry demonstrates no evidence of a large airways obstructive ventilatory defect. There was no significant response to aerosolized bronchodilators. Spirograms are of suboptimal quality and terminate prior to 6 seconds, likely underestimating FVC. Body plethysmography was performed and reveals an elevated RV to 153% of predicted. Total lung capacity was within normal limits. Diffusing capacity was unable to be determined. IMPRESSION: Normal spirometry without significant bronchodilator response. Elevated RV of unclear significance. Diffusing capacity was unable to be reported. Results of these pulmonary function studies should be viewed with caution.
== END ==
PROVIDERS: Family Provider Family Medicine; PCP Family Medicine; Referring Provider Nurse Practitioner Acute Care; Visit Provider Nurse Practitioner Acute Care
DX: R06.00 Dyspnea, unspecified (principal)
CPT/HCPCS: 94060; 94726; 94729

== ENCOUNTER → 2019-04-19 08:46 | Outpatient (CLI) | payer MEDICARE, MEDICAID, SELFPAY ==
[2018-03-15 12:56] VITALS: BMI 37.7
[2019-04-12 11:34] VITALS: BMI 39.9
[2019-04-19 09:48] LABS: Hemoglobin A1c 7.9 % (4.2-6.3)
[2019-04-19 09:58] LABS: ALB/GLOB Ratio 1.1 RATIO (0.9-2.4); AST(SGOT) 21 U/L (15-37); Alanine Aminotransfer ALT/SGPT 33 U/L (16-61); Albumin, Serum 3.9 g/dL (3.2-5.0); Alkaline Phosphatase 63 U/L (45-117); Anion Gap 5 (5-15); BUN 24 mg/dL (7-18); BUN/Creat Ratio 19.2 RATIO (10-20); Calcium,Total 9.3 mg/dL (8.5-10.1); Chloride 106 mmol/L (98-107); Creatinine, Serum 1.25 mg/dL (0.70-1.30); EST Glomerular Filtration Rate 61 mL/min (>60); Est Glom Filt Rate - Afr Amer 74 mL/min (>60); Globulin 3.7 g/dL (2.2-4.2); Glucose 184 mg/dL (74-106); Potassium 4.1 mmol/L (3.5-5.1); Protein, Total 7.6 g/dL (6.4-8.2); Sodium Level 141 mmol/L (136-145)
== END ==
PROVIDERS: Family Provider Family Medicine; PCP Family Medicine; Referring Provider Internal Medicine Endocrinology, Diabetes & Metabolism; Visit Provider Internal Medicine Endocrinology, Diabetes & Metabolism
DX: E11.9 Type 2 diabetes mellitus without complications (principal)
CPT/HCPCS: 36415; 80053; 83036

== ENCOUNTER → 2019-05-27 | Outpatient (CLI) | payer MEDICARE, MEDICAID, SELFPAY ==
[2018-03-15 12:56] VITALS: BMI 37.7
[2019-05-01 08:56] VITALS: BMI 39.7
[2019-05-27 09:35] LABS: AST(SGOT) 38 U/L (15-37); Alanine Aminotransfer ALT/SGPT 30 U/L (16-61); Albumin, Serum 3.9 g/dL (3.2-5.0); Alkaline Phosphatase 61 U/L (45-117); Bilirubin, Direct 0.13 mg/dL (0.00-0.30); Cholesterol 240 mg/dL (200); Globulin 4.2 g/dL (2.2-4.2); High Density Lipoprotein 52 mg/dL; Protein, Total 8.1 g/dL (6.4-8.2); Triglycerides 218 mg/dL; Very Low Density Lipoprotein 44 mg/dL (5-40)
== END | disposition home or self-care (01) ==
LOC: LAB 08:31
PROVIDERS: PCP Family Medicine; Referring Provider Internal Medicine Cardiovascular Disease; Visit Provider Internal Medicine Cardiovascular Disease
DX: E78.5 Hyperlipidemia, unspecified (principal); I51.9 Heart disease, unspecified
CPT/HCPCS: 36415; 80061; 80076

== ENCOUNTER → 2019-09-27 | Outpatient (CLI) | payer MEDICARE, MEDICAID, SELFPAY ==
[2018-03-15 12:56] VITALS: BMI 37.7
[2019-09-09 08:42] VITALS: BMI 39.7
--- NOTE | 2019-09-27 12:42 | STEWCON_ITS ---
Reason For Study: CHEST PAIN Stress Results Protocol: Dobutamine Stress With Definity Maximum Predicted HR: 151 bpm Target HR: 128 bpm % Maximum Predicted HR: 88 % DurationHeart Rate Stage (mm:ss) (bpm) BP Dose Comment BASELINE 68 99/64 6CC DEFINITY FOR ENTIRE TEST STAGE 1 3:28 65 151/7210.00 STAGE 2 3:00 85 161/7020.00 STAGE 3 3:00 133 137/6730.000.5 MG ATROPINE STAGE 4 2:20 131 101/5340.00STATES SOME CHEST AND NECK DISCOMFORT RECOVERY 87 111/63 STATES FEELS BETTER Stress Duration: 11:48 mm:ss Maximum Stress HR: 133 bpm Baseline Echocardiogram Findings The estimated ejection fraction is 50-55 %. Stress Echo Wall motion Data Resting WM Intermediate WM Stress WM Resting Wall Motion Wall Motion Stress Posterior-Basal: Mildly No regional wall motion hypokinetic. abnormalities noted. EKG Data The baseline ECG displays normal sinus rhythm. The patient was titrated from 10 mcg to a maximum of 40 mcg of dobutamine during the stress. The maximum heart rate attained was 139 beats per minute. This was 92% of maximum predicted heart rate. During dobutamine infusion, there were no ST or T wave changes noted to suggest ischemia. No clinical angina was noted. Interpretation Summary The estimated ejection fraction is 50-55 %. Posterior-Basal: Mildly hypokinetic at baseline Normal, adequate, dobutamine echocardiogram. Negative for ischemia by EKG and echocardiographic criteria. Rare PAC and PVC noted.Patient at baseline patient at baseline mild proximal inferior posterior hypokinesis, which appeared to improve at peak infusion. Final LVEF of 65%. Decrease sensitivity due to poor echo windows requiring Definity agent. Test terminated due to attainment of target heart rate. Patient stated that he had some chest discomfort and neck discomfort at peak infusion which resolved soon into recovery. No associated wall motion abnormalities noted. This may be a nonspecific finding given dobutamine. Patient tolerated procedure well. The study was technically difficult. Contrast injection was performed. Ordering Physician: Willis Frey Referring Physician: Willis Frey Performed By: Lana Russell, FAWAD, RVT
== END | disposition home or self-care (01) ==
LOC: CVS 12:42
PROVIDERS: PCP Family Medicine; Referring Provider Internal Medicine Cardiovascular Disease; Visit Provider Internal Medicine Cardiovascular Disease
DX: I25.10 Atherosclerotic heart disease of native coronary artery without angina pectoris (principal); R07.9 Chest pain, unspecified
CPT/HCPCS: 93017; 93350; J7040; Q9957; A4216; C8928

== ENCOUNTER → 2019-11-13 10:06 | Outpatient (CLI) | payer MEDICARE, MEDICAID, SELFPAY ==
[2018-03-15 12:56] VITALS: BMI 37.7
[2019-09-09 08:42] VITALS: BMI 39.7
--- NOTE | 2019-11-13 10:07 | ECHOCS_ITS ---
Reason For Study: PHTN Procedure This was a 2D Doppler, Color Flow transthoracic echocardiogram. The study was technically difficult. Contrast injection was performed. Exam performed in department. Left Ventricle Mildly dilated left ventricle. The estimated ejection fraction is 50-55 %. Stage 2 diastolic dysfunction. Mid-Anterior : Mildly hypokinetic. Anterior [place] : Mildly hypokinetic. There are regional wall motion abnormalities as specified. Right Ventricle Normal size and thickness. Normal systolic function. Atria The left atrium is mildly enlarged. Normal right atrium. Normal atrial septum. Mitral Valve The mitral valve is structurally normal. No prolapse or stenosis seen. Tricuspid Valve Normal tricuspid valve. Trivial tricuspid valve insufficiency. Right ventricular systolic pressure estimated to be 29 mmHg. Aortic Valve Trisinus/trileaflet aortic valve. Mild diffuse aortic valve thickening. There is no aortic stenosis. Pulmonic Valve Normal pulmonic valve. Great Vessels Normal aortic root. Normal arch. Normal inferior vena cava. Inferior vena cava collapse with sniff. Pericardium/Pleural No pericardial effusion. Medication 22 gauge I.V. with prn adaptor inserted into right arm. Diluted definity 5ml given slow IV push to enhance endocardial definition. MMode/2D Measurements & Calculations LVIDd: 5.2 cm IVSd: 1.1 cm Ao root diam: 3.9 cm LVIDs: 3.8 cm LVPWd: 1.2 cm LA dimension: 4.9 cm RVDd: 3.5 cm FS: 26.5 % LAV(MOD-bp): 65.0 ml LA A4 area: 22.9 cm2 RA A4 area: 16.9 cm2 LAV(MOD-bp) Indexed: 28.9 ml/m2 LAV(MOD-sp2): 54.3 ml LAV(MOD-sp4): 70.7 ml Time Measurements MV dec time: 0.21 sec Doppler Measurements & Calculations MV E max vinod: 92.2 cm/sec Lat Peak E' Vinod: 12.4 cm/sec Med Peak E' Vinod: 4.9 cm/sec MV A max vinod: 65.9 cm/sec E/E' lat: 7.4 E/E' med: 18.8 MV E/A: 1.4 MV V2 max: 92.3 cm/sec MV P1/2t max vinod: 92.3 cm/sec Ao V2 max: 113.9 cm/sec MV max P.4 mmHg MV P1/2t: 86.4 msec Ao max P.2 mmHg MV V2 mean: 43.2 cm/sec MV dec slope: 312.8 cm/sec2 Ao V2 mean: 71.8 cm/sec MV mean P.93 mmHg Ao mean P.4 mmHg MV V2 VTI: 33.9 cm MVA(P1/2t): 2.5 cm2 Ao V2 VTI: 20.5 cm LV V1 max: 107.6 cm/sec PA V2 max: 114.4 cm/sec TR max vinod: 247.5 cm/sec LV V1 max P.6 mmHg TR max P.5 mmHg LV V1 mean P.1 mmHg LV V1 mean: 66.6 cm/sec LV V1 VTI: 18.0 cm Interpretation Summary Mildly dilated left ventricle. The estimated ejection fraction is 50-55 %. Stage 2 diastolic dysfunction. There are regional wall motion abnormalities as specified. The left atrium is mildly enlarged. Trivial tricuspid valve insufficiency. Right ventricular systolic pressure estimated to be 29 mmHg. Compared to echo report dated 02/17/2018, LV function has mildly improved from 45 to 55%, and RVSP has improved from 45 to 29 mmHg. The study was technically difficult. Contrast injection was performed. Ordering Physician: Willis Frey Referring Physician: Juve Reed Performed By: Lana Russell RVT, RDCS and Student
== END ==
PROVIDERS: PCP Family Medicine; Referring Provider Internal Medicine Cardiovascular Disease; Visit Provider Internal Medicine Cardiovascular Disease
DX: I27.20 Pulmonary hypertension, unspecified (principal); G47.33 Obstructive sleep apnea (adult) (pediatric)
CPT/HCPCS: 93306; Q9957; A4216; C8929

== ENCOUNTER → 2019-12-27 | Outpatient (CLI) | payer MEDICARE, MEDICAID, SELFPAY ==
[2018-03-15 12:56] VITALS: BMI 37.7
[2019-11-27 08:43] VITALS: BMI 39.7
[2019-12-27 10:22] LABS: Microalbumin,Random Urine < 5.0 mg/L (NO RANGE EST.)
[2019-12-27 10:34] LABS: AST(SGOT) 23 U/L (15-37); Alanine Aminotransfer ALT/SGPT 35 U/L (16-61); Albumin, Serum 3.8 g/dL (3.2-5.0); Alkaline Phosphatase 62 U/L (45-117); Anion Gap 7 (5-15); BUN 22 mg/dL (7-18); Calcium,Total 9.1 mg/dL (8.5-10.1); Chloride 102 mmol/L (98-107); Cholesterol 231 mg/dL (200); Creatinine, Serum 1.16 mg/dL (0.70-1.30); EST Glomerular Filtration Rate 66 mL/min (>60); Est Glom Filt Rate - Afr Amer 80 mL/min (>60); Globulin 3.9 g/dL (2.2-4.2); Glucose 226 mg/dL (74-106); High Density Lipoprotein 61 mg/dL; Protein, Total 7.7 g/dL (6.4-8.2); Sodium Level 140 mmol/L (136-145); Thyroid Stim Hormone (TSH) 1.12 uIU/mL (0.358-3.74); Triglycerides 199 mg/dL; Very Low Density Lipoprotein 40 mg/dL (5-40)
[2019-12-27 10:36] LABS: Hemoglobin A1c 8.6 % (3.8-5.6)
== END | disposition home or self-care (01) ==
LOC: LAB 09:12
PROVIDERS: PCP Family Medicine; Referring Provider Internal Medicine Endocrinology, Diabetes & Metabolism; Visit Provider Internal Medicine Endocrinology, Diabetes & Metabolism
DX: N18.3 Chronic kidney disease, stage 3 (moderate) (principal)
CPT/HCPCS: 36415; 80053; 80061; 82043; 82570; 83036; 84443

== ENCOUNTER → 2020-01-01 08:25 | Outpatient (CLI) | payer MEDICARE, MEDICAID, SELFPAY ==
[2018-03-15 12:56] VITALS: BMI 37.7
[2019-11-27 08:43] VITALS: BMI 39.7
[2020-01-01 09:12] LABS: AST(SGOT) 31 U/L (15-37); Alanine Aminotransfer ALT/SGPT 37 U/L (16-61); Albumin, Serum 3.7 g/dL (3.2-5.0); Alkaline Phosphatase 60 U/L (45-117); Bilirubin, Direct 0.15 mg/dL (0.00-0.30); Cholesterol 229 mg/dL (200); Globulin 3.7 g/dL (2.2-4.2); High Density Lipoprotein 57 mg/dL; Protein, Total 7.4 g/dL (6.4-8.2); Triglycerides 225 mg/dL; Very Low Density Lipoprotein 45 mg/dL (5-40)
== END ==
PROVIDERS: Internal Medicine Cardiovascular Disease; PCP Family Medicine; Referring Provider Nurse Practitioner Family; Visit Provider Nurse Practitioner Family
DX: I51.9 Heart disease, unspecified (principal); Z95.5 Presence of coronary angioplasty implant and graft
CPT/HCPCS: 36415; 80061; 80076

== ENCOUNTER 2020-02-03 15:44 | Inpatient (IN) | payer MEDICARE, MEDICAID, SELFPAY ==
[2018-03-15 12:56] VITALS: BMI 37.7
[2019-11-27 08:43] VITALS: BMI 39.7
[2020-02-03] VITALS (11 sets, daily range): BP systolic 97–193; BP diastolic 57–90; PULSE 78–89; RESP 18–24; TEMP 36.6–38.9; O2SAT 92–96; BMI 35.7; BMI 36.7
--- NOTE | 2020-02-03 16:07 | EKG12_ITS ---
Test Reason : CONFUSION Blood Pressure : / mmHG Vent. Rate : 079 BPM Atrial Rate : 079 BPM P-R Int : 138 ms QRS Dur : 104 ms QT Int : 384 ms P-R-T Axes : 031 006 060 degrees QTc Int : 440 ms Normal sinus rhythm with sinus arrhythmia Incomplete right bundle branch block Borderline ECG Confirmed by JAYDA STODDARD, MARIANNA ([id number]), drafter cartographic KRISTIAN BROWN ([id number]) on 02/05/2020 1:43:26 PM Referred By: KARON Confirmed By:MARIANNA MONTELONGO MD
--- NOTE | 2020-02-03 16:09 | ED.VIS.GEN ---
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 This is his first visit to a care provider not time. No family with him, unknown if he has been exposed to Covid or not but he has not been tested during the past week yet. Patient denies any chest pain or abdominal pain, no other GI symptoms, EMS states that he has been dyspneic off-and-on but the patient does not remember that and denies feeling dyspneic now. He admits to a nonproductive cough. He has had loss of taste and smell, which may be part of why he is not eating well. He has been so weak and confused today, much more than usual for him, that he has not been able to get up and walk at all, and family is unable to care for him. He denies any headache. States he is on a blood thinner, he has a history of a DVT, he does not remember which one. Old medication list shows aspirin and Plavix. states there have been multiple sick family contacts with respiratory symptoms and loss of taste and smell, however none of them were tested. They suspect that everyone has had Covid. - Past Medical History (1) Non-STEMI (non-ST elevated myocardial infarction) Status: Chronic (2) JOSÉ MIGUEL (obstructive sleep apnea) Status: Chronic Comment: AHI 45.4 (3) Systolic and diastolic CHF, acute Status: Chronic Comment: EF 45-50% per echo February 2018 (4) Atherosclerotic heart disease of [place] coronary artery without angina pectoris Status: Chronic Comment: JACI of proximal LCX w/3.0 X 38 Promus Syncergy (5) DM2 (diabetes mellitus, type 2) Status: Chronic (6) Grade II diastolic dysfunction Status: Chronic Comment: Per echo 02/17/2018 (7) HLD (hyperlipidemia) Status: Chronic (8) HTN (hypertension) Status: Chronic (9) History of DVT (deep vein thrombosis) Status: Chronic Comment: Patient was on Xarelto for this, is not presently (10) Nonrheumatic tricuspid (valve) insufficiency Status: Chronic Comment: Mild (1+) per echo 02/17/2018 (11) Peripheral vascular disease Status: Chronic (12) Secondary pulmonary hypertension Status: Chronic Comment: Mild, RVSP 45 mmhg per echo 02/17/2018 Past Medical History - Allergies and Home Meds Allergies/Adverse Reactions: Allergies hydrochlorothiazide Allergy (Verified 11/27/19 08:40) Unknown Penicillins [PCN] Allergy (Verified 11/27/19 08:40) Swelling pioglitazone [From Actos] Allergy (Verified 11/27/19 08:40) Unknown gemfibrozil Adverse Reaction (Severe, Verified 11/27/19 08:40) caused very high blood glucose oxycodone [From OxyIR] Adverse Reaction (Verified 11/27/19 08:40) Other pravastatin Adverse Reaction (Verified 11/27/19 08:40) Pain in joints Primary Care Physician: Juve Reed MD [Primary Care Provider] - Surgical History: coronary bypass surgery, total knee arthroplasty - L, - - coronary a. stent Lives: With Family Smoking Status: Never smoker - Family History Maternal Family History: Family History (Last Reviewed 11/27/19 @ 08:47 by Laura Canchola COAL PULVERIZER OPERATOR, COAL PULVERIZER OPERATOR-C) Father Myocardial infarction ICD (implantable cardioverter-defibrillator) in place Brother Heart disease Family History: Reports: No pertinent history Review of Systems General: Reports: Fever, Malaise - And generally weak. Decreased appetite.. Denies: Chills Eyes: Denies: Visual changes - bilaterally, Diplopia ENT: Denies: Bilateral ear pain, Rhinorrhea, Sore throat Cardiovascular: Denies: Chest pain, Palpitations Respiratory: Reports: Cough. Denies: Dyspnea - See HPI, Sputum Gastrointestinal: Denies: Abdominal pain, Nausea, Vomiting, Diarrhea, Melena, Hematochezia Genitourinary: Denies: Dysuria, Hematuria, Frequency Musculoskeletal: Reports: Myalgias, Back pain - Low back, nonlateralizing. Denies: Swelling Skin: Denies: Rash, Wounds Neurological: Denies: Headache, Weakness - Nothing focal, Numbness Physical Exam Vital Signs/Narrative: Vital Signs Temp Pulse Resp BP Pulse Ox 02/03/20 15:58 99.9 F H 81 24 H 132/76 H 93 02/03/20 15:55 99.9 F H 81 24 H 132/76 H 93 Inital Vital Signs reviewed: Yes General: Well nourished, Well developed, No Acute Distress Head: Normocephalic, Atraumatic Eyes: Perrl, EOMI ENT: Moist mucous membranes, No rhinorrhea Neck: Supple, Nontender, No lymphadenopathy, No JVD Cardiovascular: Regular rate, Regular rhythm, No murmurs. Negative for: Tachycardia Respiratory: No distress, CTA bilaterally, Chest nontender Abdomen: Soft, Nontender, Nondistended, Normal bowel sounds Back: Nontender, Normal Inspection Extremities: Nontender, Edema - Trace bilateral lower extremity pretibial, symmetric. Negative for: Calf Tenderness Skin: Normal color, No rash, No Trauma Neurological: Alert, Cranial nerves II-XII grossly intact, Normal Strength, Normal Sensation, Disoriented - To month only. Oriented to person, place, year. Psychological: Normal affect, Normal Mood Diagnostic/Tx/Re-eval Impressions Brain CT 02/03/20 16:12 IMPRESSION: Chronic involutional changes of the brain. Electronically Signed: Jony López MD at 17:07 EDT Tel , Service support , Chest X-Ray 02/03/20 16:40 IMPRESSION: No active disease. Electronically Signed: Jony López MD at 16:58 EDT Tel , Service support , 02/03/20 16:12 CT Head [Brain/Head without Contrast] [CT] Stat 02/03/20 16:40 Chest 1 View (Portable) [RAD] Stat Laboratory Results 02/03/20 02/03/20 02/03/20 16:03 16:03 16:03 WBC 4.5 RBC 4.68 Hgb 14.1 Hct 43.3 MCV 92.5 MCH 30.1 MCHC 32.6 RDW Std Deviation 44.5 H RDW Coeff of Smooth 13.0 Plt Count 143 L MPV 12.3 H Immature Gran % (Auto) 0.200 Neut % (Auto) 59.8 Lymph % (Auto) 33.3 [place] % (Auto) 5.6 Eos % (Auto) 0.4 Baso % (Auto) 0.7 Absolute Neuts (auto) 2.7 Absolute Lymphs (auto) 1.50 Nucleated RBC % 0 Sodium 135 L Potassium 4.1 Chloride 96 L Carbon Dioxide 31.0 Anion Gap 8 BUN 29 H Creatinine 1.47 H Estim Creat Clear Calc 45.88 Est GFR (MDRD) Af Amer 61 Est GFR (MDRD) Non-Af 50 L BUN/Creatinine Ratio 19.7 Glucose 135 H Lactic Acid 1.2 Calcium 8.7 Total Bilirubin 0.40 AST 33 ALT 29 Alkaline Phosphatase 70 Troponin I < 0.015 Total Protein 7.7 Albumin 3.5 Globulin 4.2 Albumin/Globulin Ratio 0.8 L Urine Color Urine Clarity Urine pH Ur Specific [place] Urine Protein Urine Glucose (UA) Urine Ketones Urine Occult Blood Urine Nitrite Urine Bilirubin Urine Urobilinogen Ur Leukocyte Esterase Urine RBC Urine WBC Ur Squamous Epith Cells Urine Bacteria Urine Mucus COVID-19 (MILKA) 02/03/20 02/03/20 16:15 17:35 WBC RBC Hgb Hct MCV MCH MCHC RDW Std Deviation RDW Coeff of Smooth Plt Count MPV Immature Gran % (Auto) Neut % (Auto) Lymph % (Auto) [place] % (Auto) Eos % (Auto) Baso % (Auto) Absolute Neuts (auto) Absolute Lymphs (auto) Nucleated RBC % Sodium Potassium Chloride Carbon Dioxide Anion Gap BUN Creatinine Estim Creat Clear Calc Est GFR (MDRD) Af Amer Est GFR (MDRD) Non-Af BUN/Creatinine Ratio Glucose Lactic Acid Calcium Total Bilirubin AST ALT Alkaline Phosphatase Troponin I Total Protein Albumin Globulin Albumin/Globulin Ratio Urine Color Yellow Urine Clarity Clear Urine pH 5.0 Ur Specific [place] 1.025 Urine Protein 15 H Urine Glucose (UA) 1000 H Urine Ketones 50 H Urine Occult Blood Negative Urine Nitrite Negative Urine Bilirubin Negative Urine Urobilinogen Normal Ur Leukocyte Esterase Negative Urine RBC 0 SEEN Urine WBC 0 SEEN Ur Squamous Epith Cells 0 SEEN Urine Bacteria 1+ Urine Mucus 0 SEEN COVID-19 (MILKA) Detected - Rhythm Strip Rhythm Strip: Sinus Rhythm Rate: 79 Ectopy: None - EKG Initial EKG Interpretation: Sinus Rhythm, No Acute Injury Pattern, RBBB - incomplete Prior: Unchanged - Medical Decision Making I went to reevaluate the patient, he is sitting at the bedside, he pulled his IV out which is currently draining IV fluids out onto the bed. He is certainly a little disoriented. He is clinically stable. After obtaining information in the HPI from the , he will need to be admitted for care, even though he is not hypoxic at this time. His Covid returned positive, as expected. With regards to treating that, he is not hypoxic or having moderate-severe disease at this time, so supportive care currently indicated. ED Disposition - Plan for ED Patient: Disposition: Acute Care Hospital [facility] Diagnosis: COVID-19, Mild dehydration, Delirium, Dementia Referrals: Juve Reed MD [Primary Care Provider] -
--- NOTE | 2020-02-03 16:12 | CT_ITS ---
STUDY: CT BRAIN WITHOUT CONTRAST REASON FOR EXAM: Male, 69 years old. WEAKNESS, CONFUSION, FEVER, SOB, CHILLS, DEC. APPETITE RADIATION DOSAGE (If Supplied By Facility): CTDIvol = ( 44.99 ) mGy, DLP = ( 796.11 ) mGycm TECHNIQUE: Transaxial CT imaging of the brain was performed without administration of intravenous contrast material. Individualized dose optimization techniques were used for this CT. COMPARISON: 02/15/2018 FINDINGS: Normal soft tissue structures. Normal calvarium. There is mild cerebral atrophy with widening of the extra-axial spaces and ventricular dilatation. There are areas of decreased attenuation within the white matter tracts of the supratentorial brain, consistent with microvascular disease changes. Normal basal ganglia and thalami. Normal brainstem. Normal cerebellum. There is no intracranial hemorrhage. There are no findings of an acute ischemic infarction. Normal visualized paranasal sinuses. CT/Brain/Head without Contrast IMPRESSION: Chronic involutional changes of the brain. Electronically Signed: Jony López MD at 17:07 EDT Tel , Service support ,
[2020-02-03 16:18] LABS: Absolute Neutrophil Count 2.7 X10^3/uL (2.0-7.7); Basophil# 0.03 X10^3/uL; Basophil% 0.7 % (0-1); Eosinophil# 0.02 X10^3/uL; Eosinophils% 0.4 % (0-5); Hematocrit 43.3 % (40-54); Hemoglobin 14.1 g/dL (13.0-16.5); Lymphocyte % 33.3 % (19-41); Mean Corp Hgb Conc 32.6 g/dL (32-36); Mean Corpuscular Hgb 30.1 pg (27.0-32.0); Mean Corpuscular Volume 92.5 fL (80-94); Mean Platelet Vol. 12.3 fl (6.2-12.0); Monocyte# 0.25 X10^3/uL; Monocyte% 5.6 % (0-10); NRBC Flagged by Analyzer 0 % (0-5); Neutrophil # 2.69 X10^3/uL (2.7-7.7); Neutrophil % 59.8 % (47-70); Platelet Count 143 K/mm3 (150-450); RBC Distribution Width SD 44.5 fl (35.1-43.9); Red Blood Count 4.68 M/mm3 (4.6-6.2); White Blood Count 4.5 K/mm3 (4.4-11.0)
[2020-02-03 16:39] LABS: Lactic Acid 1.2 mmol/L (0.4-1.9)
--- NOTE | 2020-02-03 16:40 | RAD_ITS ---
STUDY: X-RAY CHEST REASON FOR EXAM: Male, 69 years old. INCREASED WEAKNESS, CONFUSION AND DECREASED APPETITE. TECHNIQUE: Single AP portable view of the chest. COMPARISON: 11/01/2018 FINDINGS: Status post median sternotomy. The lungs are clear and expanded. There is no demonstrated pleural abnormality. Normal size heart. Normal mediastinum and sami. Normal visualized pulmonary arteries. Normal visualized aortic arch and descending thoracic aorta. Normal visualized thoracic spine. Normal visualized ribs, clavicles, and shoulders. There is no demonstrated abnormality of the visualized soft tissue structures of the upper abdomen. RAD/Chest 1 View (Portable) IMPRESSION: No active disease. Electronically Signed: Jony López MD at 16:58 EDT Tel , Service support ,
[2020-02-03 17:36] LABS: ALB/GLOB Ratio 0.8 RATIO (0.9-2.4); AST(SGOT) 33 U/L (15-37); Alanine Aminotransfer ALT/SGPT 29 U/L (16-61); Albumin, Serum 3.5 g/dL (3.2-5.0); Alkaline Phosphatase 70 U/L (45-117); Anion Gap 8 (5-15); BUN 29 mg/dL (7-18); BUN/Creat Ratio 19.7 RATIO (10-20); Calcium,Total 8.7 mg/dL (8.5-10.1); Chloride 96 mmol/L (98-107); Creatinine, Serum 1.47 mg/dL (0.70-1.30); EST Glomerular Filtration Rate 50 mL/min (>60); Est Glom Filt Rate - Afr Amer 61 mL/min (>60); Estimated Creatinine Clearance 45.88 ml/min; Globulin 4.2 g/dL (2.2-4.2); Glucose 135 mg/dL (74-106); Potassium 4.1 mmol/L (3.5-5.1); Protein, Total 7.7 g/dL (6.4-8.2); Sodium Level 135 mmol/L (136-145)
[2020-02-03] MEDS: 0.9% Normal Saline 1,000 ML 125 ML IV (17:44)
[2020-02-03 18:15] LABS: Mucous, Urine 0 SEEN /hpf (<or=2+); Red Blood Cells-Urine 0 SEEN /hpf (0-5); Squamous Epithelial Cells - UA 0 SEEN /hpf (0-5); White Blood Cells 0 SEEN /hpf (0-5)
[2020-02-03 18:23] LABS: Color, Urine Yellow (Yellow); Glucose, Dipstick 1000 mg/dl (Normal); Ketone-Dipstick 50 mg/dl (Negative); Leukocyte Esterase-Dipstick Negative /ul (Negative); Nitrite-Dipstick Negative (Negative); Occult Blood-Urine Negative /ul (Negative); Protein-Dipstick 15 mg/dl (Negative); Specific Gravity, Urine 1.025 (1.002-1.030); Urine Bilirubin Dipstick Negative (Negative); Urine Clarity Clear (Clear); Urine Urobilinogen Normal (Normal)
[2020-02-03 18:45] LABS: Bacteria 1+ /hpf (None Seen)
--- NOTE | 2020-02-03 19:24 | PCM.HP.STD ---
Problem List (1) COVID-19 Status: Acute (2) Mild dehydration Status: Acute (3) Dementia Status: Chronic (4) History of total left knee replacement Status: Resolved (5) S/P CABG x 3 Status: Resolved Comment: FLANNERY to LAD, SVG to LCX, SVG to PDA: info obtained from cath report, but don't have original surgical report or where performed. (6) Peripheral vascular disease Status: Chronic (7) BMI 38.0-38.9,adult Status: Chronic (8) JOSÉ MIGUEL (obstructive sleep apnea) Status: Chronic Comment: AHI 45.4 (9) History of left heart catheterization Status: Resolved Comment: Segmented LV systolic dysfunction- Moderate; LVEF: by LV gram 55 %; Double vessel CAD of the LAD, LCX; Widely patent FLANNERY To LAD; Occluded SVG to LCX system; Widely patent SVG to PDA. (10) Status post revision of total replacement of left knee Status: Chronic (11) History of DVT (deep vein thrombosis) Status: Chronic Comment: Patient was on Xarelto for this, is not presently (12) Nonrheumatic tricuspid (valve) insufficiency Status: Chronic Comment: Mild (1+) per echo 02/17/2018 (13) Secondary pulmonary hypertension Status: Chronic Comment: Mild, RVSP 45 mmhg per echo 02/17/2018 (14) Grade II diastolic dysfunction Status: Chronic Comment: Per echo 02/17/2018 (15) Systolic and diastolic CHF, acute Status: Chronic Comment: EF 45-50% per echo February 2018 (16) Stented coronary artery Status: Chronic Comment: JACI of proximal LCX w/3.0 X 38 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 transplanted heart: [place] heart Qualified Code(s): I25.10 - Atherosclerotic heart disease of [place] coronary artery without angina pectoris Comment: JACI of proximal LCX w/3.0 X 38 Promus Syncergy (18) Non-STEMI (non-ST elevated myocardial infarction) Status: Chronic (19) HLD (hyperlipidemia) Status: Chronic Qualifiers: Hyperlipidemia type: unspecified Qualified Code(s): E78.5 - Hyperlipidemia, unspecified (20) HTN (hypertension) Status: Chronic Qualifiers: Hypertension type: essential hypertension Qualified Code(s): I10 - Essential (primary) hypertension (21) DM2 (diabetes mellitus, type 2) Status: Chronic History of Present Illness Date of Admission: 02/03/20 Chief Complaint: weakness The patient is a 69 year old M with a significant history of CAD status post CABG; and dementia who presents to the emergency department with 1-1/2-week history of weakness. Reportedly his weakness has progressed to the point that he could not walk. Associated with his symptoms is malaise; fever and chills. He has poor appetite. His sense of smell is intact.However he has decrease in his sense of taste. Further reportedly he has been more confused above his baseline. Because of his increasing weakness his family could no longer take care of him so they brought him to the emergency department. Many of his family members have Covid-like symptoms but have not been tested.. At emergent department patient was found to be positive for Covid. Past Medical History Past Medical History (Chronic Problems): Chronic Problems (Last Reviewed 02/03/20 @ 22:[address] 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% per echo February 2018 Stented coronary artery (Chronic 03/15/18) JACI of proximal LCX w/3.0 X 38 Prom[employer] Syncer[employer] Atherosclerotic heart disease of [place] coronary artery without angina pectoris (Chronic 03/15/18) JACI of proximal LCX w/3.0 X 38 Prom[employer] Syncer[employer] Non-STEMI (non-ST elevated myocardial infarction) (Chronic 03/15/18) HLD (hyperlipidemia) (Chronic) HTN (hypertension) (Chronic) DM2 (diabetes mellitus, type 2) (Chronic) Medical History: Medical History (Last Reviewed 02/03/20 @ 23:[address] Louie Yang MD) History of DVT (deep vein thrombosis) (Chronic) Z86.718 Patient was on Xarelto for this, is not presently Nonrheumatic tricuspid (valve) insufficiency (Chronic) I36.1 Mild (1+) per echo 02/17/2018 Secondary pulmonary hypertension (Chronic) Mild, RVSP 45 mmhg per echo 02/17/2018 Grade II diastolic dysfunction (Chronic) I51.9 Per echo 02/17/2018 Systolic and diastolic CHF, acute (Chronic) I50.41 EF 45-50% per echo February 2018 Atherosclerotic heart disease of [place] coronary artery without angina pectoris (Chronic) Onset Date: 03/15/18 I25.10 JACI of proximal LCX w/3.0 X 38 Prom[employer] Syncergy Non-STEMI (non-ST elevated myocardial infarction) (Chronic) Onset Date: 03/15/18 I21.4 HLD (hyperlipidemia) (Chronic) E78.5 HTN (hypertension) (Chronic) I10 Acute blood loss anemia (Inactive) D62 DM2 (diabetes mellitus, type 2) (Chronic) E11.9 Allergies hydrochlorothiazide Allergy (Verified 11/27/19 08:40) Unknown Penicillins [PCN] Allergy (Verified 11/27/19 08:40) Swelling pioglitazone [From Actos] Allergy (Verified 11/27/19 08:40) Unknown gemfibrozil Adverse Reaction (Severe, Verified 11/27/19 08:40) caused very high blood glucose oxycodone [From OxyIR] Adverse Reaction (Verified 11/27/19 08:40) Other pravastatin Adverse Reaction (Verified 11/27/19 08:40) Pain in joints Home Medications: Ambulatory Orders Medication Instructions Recorded Aspirin [Aspirin EC] 81 mg PO DAILY 03/15/17 Bupropion HCl [Bupropion HCl ER] 100 mg PO LUNCH 03/15/17 Gabapentin [Neurontin] 300 mg PO TID 03/15/17 Multivitamin [Multiple Vitamins] 1 ea PO DAILY 03/15/17 buPROPion XL [Wellbutrin Xl] 300 mg PO DAILY 03/15/17 Quetiapine Fumarate [Seroquel] 25 mg PO BID 01/24/18 metoprolol tartrate 25 mg tablet 12.5 mg PO QHS tab 07/13/18 insulin aspar prot-insulin aspart See Rx Instructions SUBCUT .ac ml 10/05/18 100 unit/mL (70-30) subcutaneous pen nitroglycerin 0.4 mg sublingual 0.4 mg SUBLINGUAL Q5-15M PRN #25 10/05/18 tablet tab icosapent ethyl 1 gram capsule 2 g PO BID #120 cap 08/23/19 donepezil 10 mg tablet 20 mg PO QHS tab 09/09/19 duloxetine 30 mg capsule,delayed 30 mg PO BID cap 09/09/19 release sprinkle empagliflozin 25 mg tablet 25 mg PO DAILY 09/09/19 Cholecalciferol (Vitamin D3) 2,000 unit PO DAILY 02/03/20 [Vitamin D3] Clopidogrel Bisulfate [Plavix] 75 mg PO DAILY 02/03/20 Furosemide [Lasix] 20 mg PO DAILY 02/03/20 Isosorbide Mononitrate [Isosorbide 120 mg PO BID 02/03/20 Mononitrate ER] Lisinopril 20 mg PO BID 02/03/20 Surgical History: Surgical History (Last Reviewed 02/03/20 @ 23:[address] Louie Yang MD) History of total left knee replacement (Resolved) Onset Date: 02/15/18 Z96.652 S/P CABG x 3 (Resolved) Onset Date: 03/10/15 Z95.1 FLANNERY to LAD, SVG to LCX, SVG to PDA: info obtained from cath report, but don't have original surgical report or where performed. History of left heart catheterization (Resolved) Onset Date: 11/07/18 Z98.890 Segmented LV systolic dysfunction- Moderate; LVEF: by LV gram 55 %; Double vessel CAD of the LAD, LCX; Widely patent FLANNERY To LAD; Occluded SVG to LCX system; Widely patent SVG to PDA. Stented coronary artery (Chronic) Onset Date: 03/15/18 Z95.5 JACI of proximal LCX w/3.0 X 38 Promus Syncergy Surgical History: coronary bypass surgery, total knee arthroplasty - L, - - coronary a. stent Lives: With Family Smoking Status: Never smoker - *Family History Maternal Family History: Family History (Last Reviewed 02/03/20 @ 23:[address] Louie Yang MD) Father Myocardial infarction ICD (implantable cardioverter-defibrillator) in place Brother Heart disease Review of Systems Constitutional: Reports: Anorexia, Chills, Fever, Weakness, Fatigue. Denies: Weight Change HEENT: Denies: Head Aches, Sinus Congestion, Sinus Drainage Cardiovascular: Denies: Chest Pain, Palpitations Respiratory: Denies: Cough, Shortness of breath at rest, Sputum production Gastrointestinal: Denies: Abdominal Pain, Nausea, Vomiting Genitourinary: Denies: Dysuria Musculoskeletal: Denies: Joint Pain, Joint Tenderness Skin: Denies: Rash, Wounds Neurological: Denies: Numbness, Tingling, Focal weakness Psychiatric: Denies: Anxiety, Depression, Homicidal Ideations, Suicidal Ideations Hematologic/ Lymphatic: Denies: Easy Bruising, Easy Bleeding VTE Information - Inpt Only VTE Present on Admission: No VTE Mechan Device Prophylaxis: None VTE Pharm Prophylaxis ordered?: Yes Patient Problems: Active and Suspected Problems (Last Reviewed 02/03/20 @ 22:[address] Louie Yang MD) COVID-19 (Acute) Mild dehydration (Acute) - Physical Exam Vitals/I&O's: Vital Signs Temp Pulse Resp BP Pulse Ox 98 F 80 24 H 158/85 H 92 02/03/20 18:00 02/03/20 18:33 02/03/20 18:33 02/03/20 18:33 02/03/20 18:33 Oxygen Delivery Method Room Air Weight: 106.7 kg Body Mass Index (BMI) 35.7 Finger Stick Blood Glucose 272 General: Alert, Oriented x3, Cooperative HEENT: Atraumatic, PERRLA, EOMI, Normocephalic Neck: Supple, No JVD, Negative Carotid Bruits Lungs: Clear to auscultation, Normal air movement Cardiovascular: Regular rate, Normal S1, Normal S2, No murmurs Abdomen: Bowel Sounds Present, Soft, Non Tender Extremities: No edema, Capillary Refill Less than 3 Seconds Skin: No rashes, No breakdown Musculoskeletal: No Tenderness to Palpation of Joints or Extremities Neurological: Cranial nerves II-XII grossly intact Psych/Mental Status: Normal Affect, Appropriate Laboratory Results 02/03/20 16:03: Sodium 135 L, Potassium 4.1, Chloride 96 L, Carbon Dioxide 31.0, Anion Gap 8, BUN 29 H, Creatinine 1.47 H, Estim Creat Clear Calc 45.88, Est GFR (MDRD) Af Amer 61, Est GFR (MDRD) Non-Af 50 L, BUN/Creatinine Ratio 19.7, Glucose 135 H, Calcium 8.7, Total Bilirubin 0.40, AST 33, ALT 29, Alkaline Phosphatase 70, Troponin I < 0.015, Total Protein 7.7, Albumin 3.5, Globulin 4.2, Albumin/Globulin Ratio 0.8 L 02/03/20 16:03: WBC 4.5, RBC 4.68, Hgb 14.1, Hct 43.3, MCV 92.5, MCH 30.1, MCHC 32.6, RDW Std Deviation 44.5 H, RDW Coeff of Smooth 13.0, Plt Count 143 L, MPV 12.3 H, Immature Gran % (Auto) 0.200, Neut % (Auto) 59.8, Lymph % (Auto) 33.3, [place] % (Auto) 5.6, Eos % (Auto) 0.4, Baso % (Auto) 0.7, Absolute Neuts (auto) 2.7, Absolute Lymphs (auto) 1.50, Nucleated RBC % 0 02/03/20 16:03: Lactic Acid 1.2 02/03/20 16:15: COVID-19 (MILKA) Detected 02/03/20 17:35: Urine Color Yellow, Urine Clarity Clear, Urine pH 5.0, Ur Specific [place] 1.025, Urine Protein 15 H, Urine Glucose (UA) 1000 H, Urine Ketones 50 H, Urine Occult Blood Negative, Urine Nitrite Negative, Urine Bilirubin Negative, Urine Urobilinogen Normal, Ur Leukocyte Esterase Negative, Urine RBC 0 SEEN, Urine WBC 0 SEEN, Ur Squamous Epith Cells 0 SEEN, Urine Bacteria 1+, Urine Mucus 0 SEEN Current Medications Sodium Chloride () 1,000 mls @ 125 mls/hr IV .Q8H SILKE Last Admin: 02/03/20 17:44 Dose: 125 mls/hr Documented by: Assessment/Plan All Active Problems (Last Reviewed 02/03/20 @ 22:[address] Louie Yang MD) COVID-19 (Acute) Mild dehydration (Acute) History of total left knee replacement (Resolved 02/15/18) S/P CABG x 3 (Resolved 03/10/15) History of left heart catheterization (Resolved 11/07/18) Abdominal discomfort (Resolved) Chest pain (Resolved) Hypertensive urgency (Resolved) COVID-19 infection. On room air his oxygen saturation is 93 to 94%. We will hold off dexamethasone at this time. Pedorthist consult Tylenol as needed for fever. D-dimer is elevated likely secondary to Covid. Patient with no shortness of breath. Patient with no tachycardia. Hold off CTPA at this time. Generalized weakness Likely secondary to Covid-19. PT/OT to evaluate and treat Dehydration/PATRICK Mild Creatinine presentation was 1.47 Creatinine baseline is 1.01 to 1.28. Received IV bolus in the emergency department. Normal saline hydration continued Trend BMP. Avoid nephrotoxic's. Home lisinopril held. Adjust dose of home gabapentin. Home Lasix held. CAD status post CABG Aspirin and Plavix continued Imdur continued. Dementia Donepezil continued Seroquel continued. Diabetes mellitus Presented with hyperglycemia on presentation Jardiance continued Accu-Chek with correction scale insulin ordered. Hypertensive urgency Highest systolic blood pressure is 193 Home metoprolol continued. Imdur continued. Lisinopril and Lasix held secondary to PATRICK. As needed labetalol ordered. Trend blood pressure and adjust blood pressure medications. DVT prophylaxis Subcutaneous Lovenox per Covid protocol. Inpatient E&M: 99311 Init Hosp L3
--- NOTE | 2020-02-03 19:35 | ED.RN ---
updated on patient condition and admission status
[2020-02-03] MEDS: Metoprolol Tartrate 25 MG Tablet 12.5 MG PO (22:25)
[2020-02-03] MEDS: Acetaminophen 325 MG Tablet 650 MG PO (22:26)
[2020-02-03] MEDS: 0.9% Normal Saline 1,000 ML 75 ML IV (22:40)
[2020-02-03] MEDS: 0.9% Saline Lock 10 ML Syringe IV (22:40)
[2020-02-03] MEDS: Donepezil HCl 10 MG Tablet 20 MG PO (22:45)
[2020-02-03] MEDS: QUEtiapine 25 MG Tablet PO (22:45)
[2020-02-03 22:55] LABS: Bedside Glucose 109 mg/dL (70-110)
[2020-02-04] VITALS (10 sets, daily range): BP systolic 95–188; BP diastolic 58–86; PULSE 59–74; RESP 17–20; TEMP 36.6–37.7; O2SAT 93–98
[2020-02-04] MEDS: dexAMETHasone 4 MG/ML Vial 6 MG IV (01:56)
[2020-02-04] MEDS: 0.9% Saline Lock 10 ML Syringe IV ×2 (01:56→10:49)
[2020-02-04] MEDS: Insulin Lispro 100 UNIT/ML INSULN.PEN SC ×4 (06:33→21:32)
[2020-02-04] MEDS: Gabapentin 100 MG Capsule PO ×3 (06:34→21:31)
[2020-02-04 06:45] LABS: Bedside Glucose 173 mg/dL (70-110)
[2020-02-04 07:32] LABS: Absolute Lymphocyte Count 0.88 X10^3/uL (0.83-4.51); Absolute Neutrophil Count 3.6 X10^3/uL (2.0-7.7); Basophil# 0.02 X10^3/uL; Basophil% 0.4 % (0-1); Eosinophil# 0.01 X10^3/uL; Eosinophils% 0.2 % (0-5); Hematocrit 42.6 % (40-54); Hemoglobin 13.6 g/dL (13.0-16.5); Lymphocyte # 0.88 X10^3/ul (4.0); Mean Corp Hgb Conc 31.9 g/dL (32-36); Mean Corpuscular Hgb 30.2 pg (27.0-32.0); Mean Corpuscular Volume 94.5 fL (80-94); Mean Platelet Vol. 12.1 fl (6.2-12.0); Monocyte% 2.2 % (0-10); NRBC Flagged by Analyzer 0 % (0-5); Neutrophil # 3.59 X10^3/uL (2.7-7.7); Neutrophil % 77.8 % (47-70); Platelet Count 140 K/mm3 (150-450); RBC Distribution Width CV 13.2 % (11.6-14.6); RBC Distribution Width SD 46.4 fl (35.1-43.9); Red Blood Count 4.51 M/mm3 (4.6-6.2); White Blood Count 4.6 K/mm3 (4.4-11.0)
[2020-02-04 07:46] LABS: Anion Gap 8 (5-15); BUN 33 mg/dL (7-18); BUN/Creat Ratio 22.4 RATIO (10-20); Chloride 100 mmol/L (98-107); Creatinine, Serum 1.47 mg/dL (0.70-1.30); EST Glomerular Filtration Rate 50 mL/min (>60); Est Glom Filt Rate - Afr Amer 61 mL/min (>60); Estimated Creatinine Clearance 45.88 ml/min; Glucose 168 mg/dL (74-106); Potassium 4.7 mmol/L (3.5-5.1); Sodium Level 135 mmol/L (136-145)
--- NOTE | 2020-02-04 08:03 | PCM.CONS.PUL ---
Reason for Consult Date of Consultation: 02/04/20 Reason for Consultation: Acute hypoxemic respiratory insufficiency secondary to COVID-19 pneumonia History of Present Illness: The patient is a 69-year-old male, with a history as outlined below, who presented to the emergency department on February 02 with complaints of generalized malaise, weakness, confusion and mild shortness of breath of approximately 2 weeks duration. The patient is extremely hard of hearing and confused, so presenting history is somewhat limited. He was able to report to me that many of his family members have had flulike symptoms but have not been formally tested for coronavirus. The patient does have a history of coronary artery disease along with obstructive sleep apnea, for which she utilizes nocturnal AutoPap therapy with a pressure range of 8 to 16 cm of water. Upon presentation to the emergency department, the patient was initially noted to be febrile and tachypneic. He was, nevertheless, documented to be saturating 93% on room air. Laboratory evaluation revealed a normal white blood cell count. Chemistry profile was notable for a sodium of 135 and creatinine of 1.47. Urine analysis was unremarkable. Coronavirus PCR was positive. Head CT revealed chronic involutional changes of the brain. Chest x-ray revealed no acute cardiopulmonary process. The patient was subsequently placed on Decadron and admitted to the progressive care unit for further management. Past Medical History Past Medical History (Chronic Problems): Chronic Problems (Last Reviewed 02/03/20 @ 23:[address] 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% per echo February 2018 Stented coronary artery (Chronic 03/15/18) JACI of proximal LCX w/3.0 X 38 Promus Syncergy Atherosclerotic heart disease of [place] coronary artery without angina pectoris (Chronic 03/15/18) JACI of proximal LCX w/3.0 X 38 Promus Syncergy Non-STEMI (non-ST elevated myocardial infarction) (Chronic 03/15/18) HLD (hyperlipidemia) (Chronic) HTN (hypertension) (Chronic) DM2 (diabetes mellitus, type 2) (Chronic) Medical History: Medical History (Last Reviewed 02/03/20 @ 23:[address] Louie Yang MD) History of DVT (deep vein thrombosis) (Chronic) Z86.718 Patient was on Xarelto for this, is not presently Nonrheumatic tricuspid (valve) insufficiency (Chronic) I36.1 Mild (1+) per echo 02/17/2018 Secondary pulmonary hypertension (Chronic) Mild, RVSP 45 mmhg per echo 02/17/2018 Grade II diastolic dysfunction (Chronic) I51.9 Per echo 02/17/2018 Systolic and diastolic CHF, acute (Chronic) I50.41 EF 45-50% per echo February 2018 Atherosclerotic heart disease of [place] coronary artery without angina pectoris (Chronic) Onset Date: 03/15/18 I25.10 JACI of proximal LCX w/3.0 X 38 Promus Syncergy Non-STEMI (non-ST elevated myocardial infarction) (Chronic) Onset Date: 03/15/18 I21.4 HLD (hyperlipidemia) (Chronic) E78.5 HTN (hypertension) (Chronic) I10 Acute blood loss anemia (Inactive) D62 DM2 (diabetes mellitus, type 2) (Chronic) E11.9 Allergies hydrochlorothiazide Allergy (Verified 02/03/20 20:28) Unknown Penicillins [PCN] Allergy (Verified 02/03/20 20:28) Swelling pioglitazone [From Actos] Allergy (Verified 02/03/20 20:28) Unknown gemfibrozil Adverse Reaction (Severe, Verified 02/03/20 20:28) caused very high blood glucose oxycodone [From OxyIR] Adverse Reaction (Verified 02/03/20 20:28) Other pravastatin Adverse Reaction (Verified 02/03/20 20:28) Pain in joints Home Medications: Ambulatory Orders Medication Instructions Recorded Aspirin [Aspirin EC] 81 mg PO DAILY 03/15/17 Bupropion HCl [Bupropion HCl ER] 100 mg PO LUNCH 03/15/17 Gabapentin [Neurontin] 300 mg PO TID 03/15/17 Multivitamin [Multiple Vitamins] 1 ea PO DAILY 03/15/17 buPROPion XL [Wellbutrin Xl] 300 mg PO DAILY 03/15/17 Quetiapine Fumarate [Seroquel] 25 mg PO BID 01/24/18 metoprolol tartrate 25 mg tablet 12.5 mg PO QHS tab 07/13/18 insulin aspar prot-insulin aspart See Rx Instructions SUBCUT .ac ml 10/05/18 100 unit/mL (70-30) subcutaneous pen nitroglycerin 0.4 mg sublingual 0.4 mg SUBLINGUAL Q5-15M PRN #25 10/05/18 tablet tab icosapent ethyl 1 gram capsule 2 g PO BID #120 cap 08/23/19 donepezil 10 mg tablet 20 mg PO QHS tab 09/09/19 duloxetine 30 mg capsule,delayed 30 mg PO BID cap 09/09/19 release sprinkle empagliflozin 25 mg tablet 25 mg PO DAILY 09/09/19 Cholecalciferol (Vitamin D3) 2,000 unit PO DAILY 02/03/20 [Vitamin D3] Clopidogrel Bisulfate [Plavix] 75 mg PO DAILY 02/03/20 Furosemide [Lasix] 20 mg PO DAILY 02/03/20 Isosorbide Mononitrate [Isosorbide 120 mg PO BID 02/03/20 Mononitrate ER] Lisinopril 20 mg PO BID 02/03/20 Surgical History: Surgical History (Last Reviewed 02/03/20 @ 23:[address] Louie Yang MD) History of total left knee replacement (Resolved) Onset Date: 02/15/18 Z96.652 S/P CABG x 3 (Resolved) Onset Date: 03/10/15 Z95.1 FLANNERY to LAD, SVG to LCX, SVG to PDA: info obtained from cath report, but don't have original surgical report or where performed. History of left heart catheterization (Resolved) Onset Date: 11/07/18 Z98.890 Segmented LV systolic dysfunction- Moderate; LVEF: by LV gram 55 %; Double vessel CAD of the LAD, LCX; Widely patent FLANNERY To LAD; Occluded SVG to LCX system; Widely patent SVG to PDA. Stented coronary artery (Chronic) Onset Date: 03/15/18 Z95.5 JACI of proximal LCX w/3.0 X 38 Promus Syncergy Surgical History: coronary bypass surgery, total knee arthroplasty - L, - - coronary a. stent Lives: With Family Smoking Status: Never smoker - *Family History Maternal Family History: Family History (Last Reviewed 02/03/20 @ 23:[address] Louie Yang MD) Father Myocardial infarction ICD (implantable cardioverter-defibrillator) in place Brother Heart disease History Items: No pertinent history Review of Systems Constitutional: Reports: Fever, Malaise, Weakness, Fatigue Eyes: Denies: Blurred vision, Double vision HEENT: Denies: Head Aches, Sinus Congestion, Sinus Drainage Cardiovascular: Denies: Chest Pain, Palpitations Respiratory: Reports: Shortness of Breath. Denies: Cough Gastrointestinal: Denies: Abdominal Pain, Nausea, Vomiting Genitourinary: Denies: Dysuria Musculoskeletal: Denies: Joint Pain, Joint Tenderness Skin: Denies: Rash, Wounds Neurological: Denies: Numbness, Tingling, Focal weakness Psychiatric: Denies: Anxiety, Depression, Homicidal Ideations, Suicidal Ideations Hematologic/ Lymphatic: Denies: Easy Bruising, Easy Bleeding Patient Problems: Active and Suspected Problems (Last Reviewed 02/03/20 @ 23:[address] Louie Yang MD) COVID-19 (Acute) Mild dehydration (Acute) Objective: The patient's most recent lab work, culture data and imaging studies have all been personally reviewed. - Physical Exam Vitals/I&O's: Vital Signs Temp Pulse Resp BP Pulse Ox 97.8 F 59 L 18 115/63 94 02/04/20 03:25 02/04/20 03:25 02/04/20 03:25 02/04/20 03:25 02/04/20 03:25 Oxygen Flow Rate (L/min) 2 Oxygen Delivery Method Nasal Cannula Weight: 241 lb 6.499 oz Body Mass Index (BMI) 36.7 Finger Stick Blood Glucose 272 Intake and Output for Last 24 Hours 02/02/20 02/03/20 02/04/20 23:59 23:59 23:59 Intake Total 495.83 / 495.83 200 / 200 Balance 495.83 / 495.83 200 / 200 General: Alert, Cooperative, No apparent distress, - - Extremely hard of hearing HEENT: Atraumatic, Normocephalic Oral: No Gingival or Mucosal Lesions/ Ulcerations Neck: Supple, No Nodes, Trachea Midline Lungs: No rhonchi, No wheeze, No rales, Diminished Cardiovascular: Regular rate, Regular Rhythm Abdomen: Bowel Sounds Present, Soft, Non Tender, Obese Extremities: No clubbing, No cyanosis, No edema Skin: No breakdown Musculoskeletal: No Tenderness to Palpation of Joints or Extremities Lymphatic: No Cervical, Supraclavicular, or Inguinal Adenopathy Neurological: Cranial nerves II-XII grossly intact, Neuro grossly intact Psych/Mental Status: Normal Affect Labs (Last 48 Hours) 02/03/20 02/03/20 02/03/20 16:03 16:03 16:03 WBC 4.5 RBC 4.68 Hgb 14.1 Hct 43.3 MCV 92.5 MCH 30.1 MCHC 32.6 RDW Std Deviation 44.5 H RDW Coeff of Smooth 13.0 Plt Count 143 L MPV 12.3 H Immature Gran % (Auto) 0.200 Neut % (Auto) 59.8 Lymph % (Auto) 33.3 [place] % (Auto) 5.6 Eos % (Auto) 0.4 Baso % (Auto) 0.7 Absolute Neuts (auto) 2.7 Absolute Lymphs (auto) 1.50 Nucleated RBC % 0 Sodium 135 L Potassium 4.1 Chloride 96 L Carbon Dioxide 31.0 Anion Gap 8 BUN 29 H Creatinine 1.47 H Estim Creat Clear Calc 45.88 Est GFR (MDRD) Af Amer 61 Est GFR (MDRD) Non-Af 50 L BUN/Creatinine Ratio 19.7 Glucose 135 H Lactic Acid 1.2 Calcium 8.7 Total Bilirubin 0.40 AST 33 ALT 29 Alkaline Phosphatase 70 Troponin I < 0.015 Total Protein 7.7 Albumin 3.5 Globulin 4.2 Albumin/Globulin Ratio 0.8 L Urine Color Urine Clarity Urine pH Ur Specific [place] Urine Protein Urine Glucose (UA) Urine Ketones Urine Occult Blood Urine Nitrite Urine Bilirubin Urine Urobilinogen Ur Leukocyte Esterase Urine RBC Urine WBC Ur Squamous Epith Cells Urine Bacteria Urine Mucus COVID-19 (MILKA) POC Glucose 02/03/20 02/03/20 02/03/20 16:15 17:35 22:21 WBC RBC Hgb Hct MCV MCH MCHC RDW Std Deviation RDW Coeff of Smooth Plt Count MPV Immature Gran % (Auto) Neut % (Auto) Lymph % (Auto) [place] % (Auto) Eos % (Auto) Baso % (Auto) Absolute Neuts (auto) Absolute Lymphs (auto) Nucleated RBC % Sodium Potassium Chloride Carbon Dioxide Anion Gap BUN Creatinine Estim Creat Clear Calc Est GFR (MDRD) Af Amer Est GFR (MDRD) Non-Af BUN/Creatinine Ratio Glucose Lactic Acid Calcium Total Bilirubin AST ALT Alkaline Phosphatase Troponin I Total Protein Albumin Globulin Albumin/Globulin Ratio Urine Color Yellow Urine Clarity Clear Urine pH 5.0 Ur Specific [place] 1.025 Urine Protein 15 H Urine Glucose (UA) 1000 H Urine Ketones 50 H Urine Occult Blood Negative Urine Nitrite Negative Urine Bilirubin Negative Urine Urobilinogen Normal Ur Leukocyte Esterase Negative Urine RBC 0 SEEN Urine WBC 0 SEEN Ur Squamous Epith Cells 0 SEEN Urine Bacteria 1+ Urine Mucus 0 SEEN COVID-19 (MILKA) Detected POC Glucose 109 02/04/20 02/04/20 02/04/20 06:32 07:20 07:20 WBC 4.6 RBC 4.51 L Hgb 13.6 Hct 42.6 MCV 94.5 H MCH 30.2 MCHC 31.9 L RDW Std Deviation 46.4 H RDW Coeff of Smooth 13.2 Plt Count 140 L MPV 12.1 H Immature Gran % (Auto) 0.400 Neut % (Auto) 77.8 H Lymph % (Auto) 19.0 [place] % (Auto) 2.2 Eos % (Auto) 0.2 Baso % (Auto) 0.4 Absolute Neuts (auto) 3.6 Absolute Lymphs (auto) 0.88 Nucleated RBC % 0 Sodium 135 L Potassium 4.7 Chloride 100 Carbon Dioxide 27.0 Anion Gap 8 BUN 33 H Creatinine 1.47 H Estim Creat Clear Calc 45.88 Est GFR (MDRD) Af Amer 61 Est GFR (MDRD) Non-Af 50 L BUN/Creatinine Ratio 22.4 H Glucose 168 H Lactic Acid Calcium 8.0 L Total Bilirubin AST ALT Alkaline Phosphatase Troponin I Total Protein Albumin Globulin Albumin/Globulin Ratio Urine Color Urine Clarity Urine pH Ur Specific [place] Urine Protein Urine Glucose (UA) Urine Ketones Urine Occult Blood Urine Nitrite Urine Bilirubin Urine Urobilinogen Ur Leukocyte Esterase Urine RBC Urine WBC Ur Squamous Epith Cells Urine Bacteria Urine Mucus COVID-19 (MILKA) POC Glucose 173 H Clinical Impression(s) from Imaging Studies Brain CT 02/03/20 16:12 IMPRESSION: Chronic involutional changes of the brain. Electronically Signed: Jony López MD at 17:07 EDT Tel , Service support , Chest X-Ray 02/03/20 16:40 IMPRESSION: No active disease. Electronically Signed: Jony López MD at 16:58 EDT Tel , Service support , Current Medications Acetaminophen (Acetaminophen 325 Mg Tablet) 650 mg PO Q6H PRN PRN PRN Reason: Pain Score 1-10/Temp > 100.7 F Last Admin: 02/03/20 22:26 Dose: 650 mg Documented by: Aspirin (Aspirin E.C. 81 Mg Tablet) 81 mg PO DAILY [facility] Bupropion HCl (Bupropion (Sr) 100 Mg Tablet.Sa) 100 mg PO LUNCH [facility] Bupropion HCl (Bupropion (Xl) 300 Mg Tablet.Xl) 300 mg PO DAILY [facility] Cholecalciferol (Cholecalciferol (Vit D3) 1,000 Unit (25mcg)) 2,000 unit PO DAILY [facility] Clopidogrel Bisulfate (Clopidogrel Bisulfate 75 Mg Tablet) 75 mg PO DAILY [facility] Dexamethasone Sodium Phosphate (Dexamethasone 4 Mg/Ml Vial) 6 mg IV Q24 [facility] Last Admin: 02/04/20 01:56 Dose: 6 mg Documented by: Dextrose (Dextrose 50%-Water 25 Gm/50 Ml Disp.Syrin) 0 gm IV X1 PRN; Protocol PRN Reason: Hypoglycemia Donepezil HCl (Donepezil Hcl 10 Mg Tablet) 20 mg PO QHS [facility] Last Admin: 02/03/20 22:45 Dose: 20 mg Documented by: Duloxetine HCl (Duloxetine Hcl 30 Mg Capsule) 30 mg PO BID [facility] Empagliflozin (Empagliflozin 25 Mg Tablet) 25 mg PO DAILY [facility] Enoxaparin Sodium (Enoxaparin 30 Mg/0.3 Ml Syringe) 30 mg SC Q12 [facility] Gabapentin (Gabapentin 100 Mg Capsule) 100 mg PO TID [facility] Last Admin: 02/04/20 06:34 Dose: 100 mg Documented by: Glucagon (Glucagon 1 Mg/Ml Syringe) 1 mg IM .X1 PRN PRN Reason: Hypoglycemia Sodium Chloride () 250 mls @ 15 mls/hr IV .[id number] PRN PRN Reason: Saline Flush Sodium Chloride () 250 mls @ 15 mls/hr IV .[id number] PRN PRN Reason: Additional IVPB Infusion Sodium Chloride () 1,000 mls @ 75 mls/hr IV .[id number] [facility] Last Admin: 02/03/20 22:40 Dose: 75 mls/hr Documented by: Insulin Human Lispro (Insulin Lispro 100 Unit/Ml Insuln.Pen) 0 unit SC ACHS [facility]; Protocol Last Admin: 02/04/20 06:33 Dose: 1 u Documented by: Isosorbide Mononitrate (Isosorbide Mononitrate 120 Mg Tablet) 120 mg PO BID [facility] Last Admin: 02/03/20 22:45 Dose: 120 mg Documented by: Labetalol HCl (Labetalol (Prefilled) 20 Mg/4 Ml) 10 mg IV Q4H PRN PRN PRN Reason: SBP > 160; OR DBP > 120 Metoprolol Tartrate (Metoprolol Tartrate 25 Mg Tablet) 12.5 mg PO QHS [facility] Last Admin: 02/03/20 22:25 Dose: 12.5 mg Documented by: Multivitamins (Multivitamins,Therapeutic Tablet) 1 tablet PO DAILY [facility] Ondansetron HCl (Ondansetron 4 Mg/2 Ml Vial) 4 mg IV Q8H PRN PRN PRN Reason: NAUSEA/VOMITING Quetiapine Fumarate (Quetiapine 25 Mg Tablet) 25 mg PO BID [facility] Last Admin: 02/03/20 22:45 Dose: 25 mg Documented by: Sodium Chloride (0.9% Saline Lock 10 Ml Syringe) 10 - 40 ml IV UD PRN PRN Reason: SALINE FLUSH Last Admin: 02/04/20 01:56 Dose: 10 ml Documented by: Assessment/Plan All Active Problems (Last Reviewed 02/03/20 @ 23:[address] 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 Wean supplemental oxygen to maintain saturations at or above 90%. 2. Continue Decadron 6 mg daily x10 days. 3. The patient is not a candidate for remdesivir or convalescent plasma from my perspective. 4. Encourage incentive spirometer use and mobilize patient as tolerated. 5. Obtain physical therapy consultation. 6. Start nocturnal BiPAP therapy with a pressure support of 12/8 centimeters of water. IMPRESSIONS: 1. Acute hypoxemic respiratory insufficiency secondary to COVID-19 pneumonia At the current time, the patient is stable from a clinical perspective with minimal supplemental oxygen requirement. From the best that I can tell, his symptoms have been present somewhere between 1.5 and 2 weeks in length. Therefore, given the duration of symptoms and underlying renal insufficiency, convalescent plasma and remdesivir would not be indicated. I would plan to continue Decadron 6 mg daily x10 days. Continue supplemental oxygen, with plans to wean to maintain saturations at or above 90%. Encourage incentive spirometer use and mobilize patient as tolerated. 2. History of obstructive sleep apnea Continue nocturnal Pap therapy per home regimen. This note was generated with [employer] software. It may contain incorrect words, spelling, and punctuation that were not noted in checking the note before signing. Inpatient E&M: 38098 Init Hosp L3
[2020-02-04 09:42] LABS: D-Dimer Quantitative (DVT/PE) 0.98 FEU/ug/m (0.27-0.49)
[2020-02-04 09:49] LABS: Procalcitonin < 0.04 ng/mL (0.00-0.09)
[2020-02-04] MEDS: Aspirin E.C. 81 MG Tablet PO (10:46)
[2020-02-04] MEDS: DULoxetine Hcl 30 MG Capsule PO ×2 (10:46→21:30)
[2020-02-04] MEDS: QUEtiapine 25 MG Tablet PO ×2 (10:47→21:31)
[2020-02-04] MEDS: Empagliflozin 25 MG Tablet PO (10:47)
[2020-02-04] MEDS: Enoxaparin 30 MG/0.3 ML Syringe SC ×2 (10:47→21:31)
[2020-02-04] MEDS: Clopidogrel Bisulfate 75 MG Tablet PO (10:47)
[2020-02-04] MEDS: Multivitamins,Therapeutic Tablet 1 TABLET PO (10:47)
[2020-02-04] MEDS: buPROPion (XL) 300 MG TABLET.XL PO (10:48)
--- NOTE | 2020-02-04 10:48 | CASEMGMT ---
JULIO APONTE Assessment: Phone interview with patient's , Tiffanie Zhong, for initial transition planning/care coordination assessment as pt is in COVID precautions at this time. This RN CM did call pt's room and pt requested this RN CM call his for all info at this time. RN FAY introduced self and role at [facility], voices understanding and consents to assessment at this time. states she had same sx's but is recovering at this time and still has occasional cough. Pt is currently on 6liters nc at this time. Care providers, pharmacy, and demographics verified/updated at this time. Presentation: Pt having increased weakness, confusion, and decreased appetite-Temp 100.7 for EMS Admitting dx: SARS COVID 19 PCP: Derek Specialists: Yuri, cardio; Sarbjit endo; Leticia, neuro Preferred Pharmacy: [facility] but would like [facility] at d/c just for this time d/t COVID Insurance: [employer] A[employer]B, [employer] Prescription Benefit: Yes Living Will/HPOA: Pt has LW/HPOA and is aware that they are on file at [facility] at this time. Pt's , Tiffanie Zhong, is HPOA. LNOK: Tiffanie Zhong, /HPOA; Polina Duran, daughter Living Arrangements: Pt lives with /family in home and states no concerns at home normally for pt. states pt was having some weakness but is normally independent with ADL's. 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 states she forgot to tell nurse about the cpap, so [facility] and [facility], resp therapy, updated at this time, voice understanding. states no need for any further DME at this time. states pt has had HHC in the past s/p knee replacement but has not been to SNF. states no concerns with pt coming home at time of discharge. Pt is retired. Pt does not smoke cigarettes or drink ETOH. states no further concerns/needs at this time. CM to follow for PT/OT evals, home oxygen, and any further discharge planning/needs. Advised pt/ to ask for CM if any further questions/concerns/needs arise, voice understanding. Pt Goal: Home Plan: Home, pending PT/OT evals and home oxygen testing. Yumiko KIM CM
[2020-02-04] MEDS: 0.9% Normal Saline 1,000 ML 75 ML IV (10:54)
[2020-02-04] MEDS: buPROPion (SR) 100 MG TABLET.SA PO (13:23)
[2020-02-04] MEDS: dexAMETHasone 4 MG Tablet 6 MG PO (13:32)
[2020-02-04 13:41] LABS: Bedside Glucose 298 mg/dL (70-110)
--- NOTE | 2020-02-04 15:12 | PCM.PN.HOSP ---
Patient Problems: Active and Suspected Problems (Last Reviewed 02/03/20 @ 23:[address] Louie Yang MD) COVID-19 (Acute) Mild dehydration (Acute) Reason for Visit: COVID 19 Subjective: Upset his glasses and hearing aides being taken. No shortness of breath. Vitals/I&O's: Vital Signs Temp Pulse Resp BP Pulse Ox 36.9 C 69 17 188/86 H 96 02/04/20 10:27 02/04/20 10:27 02/04/20 10:27 02/04/20 10:02/04/20 10: Oxygen Flow Rate (L/min) 6 Oxygen Delivery Method Nasal Cannula Weight: 109.5 kg Body Mass Index (BMI) 36.7 Finger Stick Blood Glucose 272 Intake and Output for Last 24 Hours 02/02/20 02/03/20 02/04/20 23:59 23:59 23:59 Intake Total 495.83 / 495.83 1450.00 / 1450.00 Output Total 400 / 400 Balance 495.83 / 495.83 1050.00 / 1050.00 General: Alert, No apparent distress HEENT: Atraumatic, Normocephalic Oral: Moist Mucosa, No Gingival or Mucosal Lesions/ Ulcerations Neck: No Nodes, Thyroid Normal Size and Texture Lungs: Clear to auscultation, Normal air movement, No rhonchi, No wheeze Cardiovascular: Regular rate, Regular Rhythm, Normal S1, Normal S2 Abdomen: Bowel Sounds Present, Soft, Non Tender, Non-Distended Extremities: No edema, No Calf Tenderness Psych/Mental Status: Normal Affect, Appropriate Laboratory Results 02/03/20 16:03: Sodium 135 L, Potassium 4.1, Chloride 96 L, Carbon Dioxide 31.0, Anion Gap 8, BUN 29 H, Creatinine 1.47 H, Estim Creat Clear Calc 45.88, Est GFR (MDRD) Af Amer 61, Est GFR (MDRD) Non-Af 50 L, BUN/Creatinine Ratio 19.7, Glucose 135 H, Calcium 8.7, Total Bilirubin 0.40, AST 33, ALT 29, Alkaline Phosphatase 70, Troponin I < 0.015, Total Protein 7.7, Albumin 3.5, Globulin 4.2, Albumin/Globulin Ratio 0.8 L 02/03/20 16:03: WBC 4.5, RBC 4.68, Hgb 14.1, Hct 43.3, MCV 92.5, MCH 30.1, MCHC 32.6, RDW Std Deviation 44.5 H, RDW Coeff of Smooth 13.0, Plt Count 143 L, MPV 12.3 H, Immature Gran % (Auto) 0.200, Neut % (Auto) 59.8, Lymph % (Auto) 33.3, [place] % (Auto) 5.6, Eos % (Auto) 0.4, Baso % (Auto) 0.7, Absolute Neuts (auto) 2.7, Absolute Lymphs (auto) 1.50, Nucleated RBC % 0 02/03/20 16:03: Lactic Acid 1.2 02/03/20 16:15: COVID-19 (MILKA) Detected 02/03/20 17:35: Urine Color Yellow, Urine Clarity Clear, Urine pH 5.0, Ur Specific [place] 1.025, Urine Protein 15 H, Urine Glucose (UA) 1000 H, Urine Ketones 50 H, Urine Occult Blood Negative, Urine Nitrite Negative, Urine Bilirubin Negative, Urine Urobilinogen Normal, Ur Leukocyte Esterase Negative, Urine RBC 0 SEEN, Urine WBC 0 SEEN, Ur Squamous Epith Cells 0 SEEN, Urine Bacteria 1+, Urine Mucus 0 SEEN 02/03/20 22:21: POC Glucose 109 02/04/20 06:32: POC Glucose 173 H 02/04/20 07:20: WBC 4.6, RBC 4.51 L, Hgb 13.6, Hct 42.6, MCV 94.5 H, MCH 30.2, MCHC 31.9 L, RDW Std Deviation 46.4 H, RDW Coeff of Smooth 13.2, Plt Count 140 L, MPV 12.1 H, Immature Gran % (Auto) 0.400, Neut % (Auto) 77.8 H, Lymph % (Auto) 19.0, [place] % (Auto) 2.2, Eos % (Auto) 0.2, Baso % (Auto) 0.4, Absolute Neuts (auto) 3.6, Absolute Lymphs (auto) 0.88, Nucleated RBC % 0 02/04/20 07:20: Sodium 135 L, Potassium 4.7, Chloride 100, Carbon Dioxide 27.0, Anion Gap 8, BUN 33 H, Creatinine 1.47 H, Estim Creat Clear Calc 45.88, Est GFR (MDRD) Af Amer 61, Est GFR (MDRD) Non-Af 50 L, BUN/Creatinine Ratio 22.4 H, Glucose 168 H, Calcium 8.0 L 02/04/20 09:00: D-Dimer Quant (PE/DVT) 0.98 H* 02/04/20 09:00: Procalcitonin < 0.04 02/04/20 13:15: POC Glucose 298 H Current Medications Acetaminophen (Acetaminophen 325 Mg Tablet) 650 mg PO Q6H PRN PRN PRN Reason: Pain Score 1-10/Temp > 100.7 F Last Admin: 02/03/20 22:26 Dose: 650 mg Documented by: Aspirin (Aspirin E.C. 81 Mg Tablet) 81 mg PO DAILY PENDING SALE TO [facility] Last Admin: 02/04/20 10:46 Dose: 81 mg Documented by: Bupropion HCl (Bupropion (Sr) 100 Mg Tablet.Sa) 100 mg PO LUNCH PENDING SALE TO [facility] Last Admin: 02/04/20 13:23 Dose: 100 mg Documented by: Bupropion HCl (Bupropion (Xl) 300 Mg Tablet.Xl) 300 mg PO DAILY PENDING SALE TO [facility] Last Admin: 02/04/20 10:48 Dose: 300 mg Documented by: Cholecalciferol (Cholecalciferol (Vit D3) 1,000 Unit (25mcg)) 2,000 unit PO DAILY PENDING SALE TO [facility] Last Admin: 02/04/20 10:48 Dose: 2,000 unit Documented by: Clopidogrel Bisulfate (Clopidogrel Bisulfate 75 Mg Tablet) 75 mg PO DAILY PENDING SALE TO [facility] Last Admin: 02/04/20 10:47 Dose: 75 mg Documented by: Dexamethasone (Dexamethasone 4 Mg Tablet) 6 mg PO DAILY@0800 PENDING SALE TO [facility] Last Admin: 02/04/20 13:32 Dose: 6 mg Documented by: Dextrose (Dextrose 50%-Water 25 Gm/50 Ml Disp.Syrin) 0 gm IV X1 PRN; Protocol PRN Reason: Hypoglycemia Donepezil HCl (Donepezil Hcl 10 Mg Tablet) 20 mg PO QHS PENDING SALE TO [facility] Last Admin: 02/03/20 22:45 Dose: 20 mg Documented by: Duloxetine HCl (Duloxetine Hcl 30 Mg Capsule) 30 mg PO BID PENDING SALE TO [facility] Last Admin: 02/04/20 10:46 Dose: 30 mg Documented by: Empagliflozin (Empagliflozin 25 Mg Tablet) 25 mg PO DAILY PENDING SALE TO [facility] Last Admin: 02/04/20 10:47 Dose: 25 mg Documented by: Enoxaparin Sodium (Enoxaparin 30 Mg/0.3 Ml Syringe) 30 mg SC Q12 PENDING SALE TO [facility] Last Admin: 02/04/20 10:47 Dose: 30 mg Documented by: Gabapentin (Gabapentin 100 Mg Capsule) 100 mg PO TID PENDING SALE TO [facility] Last Admin: 02/04/20 13:23 Dose: 100 mg Documented by: Glucagon (Glucagon 1 Mg/Ml Syringe) 1 mg IM .X1 PRN PRN Reason: Hypoglycemia Sodium Chloride () 250 mls @ 15 mls/hr IV .[id number] PRN PRN Reason: Saline Flush Sodium Chloride () 250 mls @ 15 mls/hr IV .[id number] PRN PRN Reason: Additional IVPB Infusion Sodium Chloride () 1,000 mls @ 75 mls/hr IV .[id number] PENDING SALE TO [facility] Last Admin: 02/04/20 10:54 Dose: 75 mls/hr Documented by: Insulin Human Lispro (Insulin Lispro 100 Unit/Ml Insuln.Pen) 0 unit SC [facility] PENDING SALE TO [facility]; Protocol Last Admin: 02/04/20 13:21 Dose: 4 u Documented by: Isosorbide Mononitrate (Isosorbide Mononitrate 120 Mg Tablet) 120 mg PO BID PENDING SALE TO [facility] Last Admin: 02/04/20 10:47 Dose: 120 mg Documented by: Labetalol HCl (Labetalol (Prefilled) 20 Mg/4 Ml) 10 mg IV Q4H PRN PRN PRN Reason: SBP > 160; OR DBP > 120 Metoprolol Tartrate (Metoprolol Tartrate 25 Mg Tablet) 12.5 mg PO QHS PENDING SALE TO [facility] Last Admin: 02/03/20 22:25 Dose: 12.5 mg Documented by: Multivitamins (Multivitamins,Therapeutic Tablet) 1 tablet PO DAILY PENDING SALE TO [facility] Last Admin: 02/04/20 10:47 Dose: 1 tablet Documented by: Ondansetron HCl (Ondansetron 4 Mg/2 Ml Vial) 4 mg IV Q8H PRN PRN PRN Reason: NAUSEA/VOMITING Quetiapine Fumarate (Quetiapine 25 Mg Tablet) 25 mg PO BID PENDING SALE TO [facility] Last Admin: 02/04/20 10:47 Dose: 25 mg Documented by: Sodium Chloride (0.9% Saline Lock 10 Ml Syringe) 10 - 40 ml IV UD PRN PRN Reason: SALINE FLUSH Last Admin: 02/04/20 10:49 Dose: 10 ml Documented by: Medical Necessity - Tobacco Use Smoking Status: Never smoker Assessment/Plan All Active Problems (Last Reviewed 02/03/20 @ 23:[address] 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 acute COVID-19 pneumonia dexamethasone for 10 days 2. acute hypoxic respiratory failure 2/2 above wean oxygen as tolerated 3. Dm2, uncontrolled jardiance and SSI 4. VTE prophylaxis: Inpatient E&M: 03339 Subs Hosp L2
--- NOTE | 2020-02-04 16:48 | CON.PCM_ITS ---
Problem List (1) COVID-19 Status: Acute Reason for Consult: covid Consulted by: Dr. Castro History of Present Illness: The patient is a 69 year old M presented with 2 weeks of cough, aches, nausea. No chest pain, no headache, no sputum, no change in taste or smell. Came to ED, 102.1 temp and 92% sat. Started on dex, lovenox prophylaxis. PCT was neg. Full ROS performed and neg except as noted above. - Medical History Past Medical History (Chronic Problems): Chronic Problems (Last Reviewed 02/03/20 @ 23:[address] 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% per echo February 2018 Stented coronary artery (Chronic 03/15/18) JACI of proximal LCX w/3.0 X 38 Promus Syncergy 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) JACI of proximal LCX w/3.0 X 38 Promus Syncergy Non-STEMI (non-ST elevated myocardial infarction) (Chronic 03/15/18) HLD (hyperlipidemia) (Chronic) HTN (hypertension) (Chronic) DM2 (diabetes mellitus, type 2) (Chronic) Allergies/Adverse Reactions: Allergies hydrochlorothiazide Allergy (Verified 02/03/20 20:28) Unknown Penicillins [PCN] Allergy (Verified 02/03/20 20:28) Swelling pioglitazone [From Actos] Allergy (Verified 02/03/20 20:28) Unknown gemfibrozil Adverse Reaction (Severe, Verified 02/03/20 20:28) caused very high blood glucose oxycodone [From OxyIR] Adverse Reaction (Verified 02/03/20 20:28) Other pravastatin Adverse Reaction (Verified 02/03/20 20:28) Pain in joints Home Medications: Ambulatory Orders Medication Instructions Recorded Aspirin [Aspirin EC] 81 mg PO DAILY 03/15/17 Bupropion HCl [Bupropion HCl ER] 100 mg PO LUNCH 03/15/17 Gabapentin [Neurontin] 300 mg PO TID 03/15/17 Multivitamin [Multiple Vitamins] 1 ea PO DAILY 03/15/17 buPROPion XL [Wellbutrin Xl] 300 mg PO DAILY 03/15/17 Quetiapine Fumarate [Seroquel] 25 mg PO BID 01/24/18 metoprolol tartrate 25 mg tablet 12.5 mg PO QHS tab 07/13/18 insulin aspar prot-insulin aspart See Rx Instructions SUBCUT .ac ml 10/05/18 100 unit/mL (70-30) subcutaneous pen nitroglycerin 0.4 mg sublingual 0.4 mg SUBLINGUAL Q5-15M PRN #25 10/05/18 tablet tab icosapent ethyl 1 gram capsule 2 g PO BID #120 cap 08/23/19 donepezil 10 mg tablet 20 mg PO QHS tab 09/09/19 duloxetine 30 mg capsule,delayed 30 mg PO BID cap 09/09/19 release sprinkle empagliflozin 25 mg tablet 25 mg PO DAILY 09/09/19 Cholecalciferol (Vitamin D3) 2,000 unit PO DAILY 02/03/20 [Vitamin D3] Clopidogrel Bisulfate [Plavix] 75 mg PO DAILY 02/03/20 Furosemide [Lasix] 20 mg PO DAILY 02/03/20 Isosorbide Mononitrate [Isosorbide 120 mg PO BID 02/03/20 Mononitrate ER] Lisinopril 20 mg PO BID 02/03/20 - Social History Tobacco Use: non-smoker Vital Signs Temp Pulse Resp BP Pulse Ox 98.8 F 66 18 129/79 H 96 02/04/20 16:27 02/04/20 16:27 02/04/20 16:27 02/04/20 16:27 02/04/20 16:41 Oxygen Flow Rate (L/min) 4 Oxygen Delivery Method Nasal Cannula Weight: 109.5 kg Body Mass Index (BMI) 36.7 Finger Stick Blood Glucose 272 Laboratory Tests Past 24 Hrs 02/03/20 02/03/20 02/03/20 16:03 16:15 17:35 WBC RBC Hgb Hct MCV MCH MCHC RDW Std Deviation RDW Coeff of Smooth Plt Count MPV Immature Gran % (Auto) Neut % (Auto) Lymph % (Auto) [place] % (Auto) Eos % (Auto) Baso % (Auto) Absolute Neuts (auto) Absolute Lymphs (auto) Nucleated RBC % D-Dimer Quant (PE/DVT) Sodium 135 L Potassium 4.1 Chloride 96 L Carbon Dioxide 31.0 Anion Gap 8 BUN 29 H Creatinine 1.47 H Estim Creat Clear Calc 45.88 Est GFR (MDRD) Af Amer 61 Est GFR (MDRD) Non-Af 50 L BUN/Creatinine Ratio 19.7 Glucose 135 H Calcium 8.7 Total Bilirubin 0.40 AST 33 ALT 29 Alkaline Phosphatase 70 Troponin I < 0.015 Total Protein 7.7 Albumin 3.5 Globulin 4.2 Albumin/Globulin Ratio 0.8 L Procalcitonin Urine Color Yellow Urine Clarity Clear Urine pH 5.0 Ur Specific [place] 1.025 Urine Protein 15 H Urine Glucose (UA) 1000 H Urine Ketones 50 H Urine Occult Blood Negative Urine Nitrite Negative Urine Bilirubin Negative Urine Urobilinogen Normal Ur Leukocyte Esterase Negative Urine RBC 0 SEEN Urine WBC 0 SEEN Ur Squamous Epith Cells 0 SEEN Urine Bacteria 1+ Urine Mucus 0 SEEN COVID-19 (MILKA) Detected 02/04/20 02/04/20 02/04/20 07:20 07:20 09:00 WBC 4.6 RBC 4.51 L Hgb 13.6 Hct 42.6 MCV 94.5 H MCH 30.2 MCHC 31.9 L RDW Std Deviation 46.4 H RDW Coeff of Smooth 13.2 Plt Count 140 L MPV 12.1 H Immature Gran % (Auto) 0.400 Neut % (Auto) 77.8 H Lymph % (Auto) 19.0 [place] % (Auto) 2.2 Eos % (Auto) 0.2 Baso % (Auto) 0.4 Absolute Neuts (auto) 3.6 Absolute Lymphs (auto) 0.88 Nucleated RBC % 0 D-Dimer Quant (PE/DVT) 0.98 H* Sodium 135 L Potassium 4.7 Chloride 100 Carbon Dioxide 27.0 Anion Gap 8 BUN 33 H Creatinine 1.47 H Estim Creat Clear Calc 45.88 Est GFR (MDRD) Af Amer 61 Est GFR (MDRD) Non-Af 50 L BUN/Creatinine Ratio 22.4 H Glucose 168 H Calcium 8.0 L Total Bilirubin AST ALT Alkaline Phosphatase Troponin I Total Protein Albumin Globulin Albumin/Globulin Ratio Procalcitonin Urine Color Urine Clarity Urine pH Ur Specific [place] Urine Protein Urine Glucose (UA) Urine Ketones Urine Occult Blood Urine Nitrite Urine Bilirubin Urine Urobilinogen Ur Leukocyte Esterase Urine RBC Urine WBC Ur Squamous Epith Cells Urine Bacteria Urine Mucus COVID-19 (MILKA) 02/04/20 09:00 WBC RBC Hgb Hct MCV MCH MCHC RDW Std Deviation RDW Coeff of Smooth Plt Count MPV Immature Gran % (Auto) Neut % (Auto) Lymph % (Auto) [place] % (Auto) Eos % (Auto) Baso % (Auto) Absolute Neuts (auto) Absolute Lymphs (auto) Nucleated RBC % D-Dimer Quant (PE/DVT) Sodium Potassium Chloride Carbon Dioxide Anion Gap BUN Creatinine Estim Creat Clear Calc Est GFR (MDRD) Af Amer Est GFR (MDRD) Non-Af BUN/Creatinine Ratio Glucose Calcium Total Bilirubin AST ALT Alkaline Phosphatase Troponin I Total Protein Albumin Globulin Albumin/Globulin Ratio Procalcitonin < 0.04 Urine Color Urine Clarity Urine pH Ur Specific [place] Urine Protein Urine Glucose (UA) Urine Ketones Urine Occult Blood Urine Nitrite Urine Bilirubin Urine Urobilinogen Ur Leukocyte Esterase Urine RBC Urine WBC Ur Squamous Epith Cells Urine Bacteria Urine Mucus COVID-19 (MILKA) - Other Studies Radiology: [] reviewed Other Studies: [] Route of nutrition/ use of supplements: [] Nutritional Intake: [] IV Site: [] Hill Catheter: [] - Physical Exam General: Alert, Cooperative, No apparent distress Neck: Supple, No Nodes Lungs: Diminished Cardiovascular: Regular rate, Regular Rhythm Abdomen: Soft, Non Tender, Non-Distended Extremities: No edema Skin: No rashes IV Site: Peripheral, without redness Musculoskeletal: No Tenderness to Palpation of Joints or Extremities Neurological: Cranial nerves II-XII grossly intact - Assessment/Plan Antibiotics: [] Assessment/Plan: [] Active and Suspected Problems (Last Reviewed 02/03/20 @ 23:[address] Louie Yang MD) COVID-19 (Acute) Mild dehydration (Acute) covid with hypoxia - on dex, fever improved, starting to feel better. Ddimer mild elevation, PCT normal. On lovenox 30 bid. Not candidate for plasma or remdesivir as sx over 2 weeks. Will follow, thank you
[2020-02-04 16:50] LABS: Bedside Glucose 328 mg/dL (70-110)
[2020-02-04] MEDS: Metoprolol Tartrate 25 MG Tablet 12.5 MG PO (21:30)
[2020-02-04] MEDS: Donepezil HCl 10 MG Tablet 20 MG PO (21:30)
[2020-02-04 21:51] LABS: Bedside Glucose 327 mg/dL (70-110)
[2020-02-05] VITALS (10 sets, daily range): BP systolic 129–183; BP diastolic 69–85; PULSE 55–63; RESP 16–20; TEMP 36.6–37.3; O2SAT 94–97
[2020-02-05] MEDS: Gabapentin 100 MG Capsule PO ×3 (06:19→21:43)
[2020-02-05] MEDS: Insulin Lispro 100 UNIT/ML INSULN.PEN SC ×4 (06:31→21:57)
[2020-02-05 06:40] LABS: Bedside Glucose 224 mg/dL (70-110)
--- NOTE | 2020-02-05 07:14 | PN_ITS ---
Patient Problems: Active and Suspected Problems (Last Reviewed 02/03/20 @ 23:[address] Louie Yang MD) COVID-19 (Acute) Mild dehydration (Acute) Subjective: The patient was seen and examined at the bedside this morning. Events from the last 24 hours have been reviewed. The patient is currently afebrile, hemodynamically stable and maintaining appropriate oxygen saturations on 4 L/min via nasal cannula. The patient remains on Decadron 6 mg daily. Objective: The patient's most recent lab work, culture data and imaging studies have all been personally reviewed. Surface echocardiogram from November 2019 revealed an ejection fraction of 50% with stage II diastolic dysfunction. Coronavirus PCR w as positive on February 02. Blood cultures are currently pending. - Physical Exam Vitals/I&O's: Vital Signs Temp Pulse Resp BP Pulse Ox 98.1 F 60 18 129/76 H 97 02/05/20 06:22 02/05/20 06:22 02/05/20 06:22 02/05/20 06:22 02/05/20 06:22 Oxygen Flow Rate (L/min) 4 Oxygen Delivery Method Nasal Cannula Weight: 241 lb 6.499 oz Body Mass Index (BMI) 36.7 Finger Stick Blood Glucose 272 Intake and Output for Last 24 Hours 02/03/20 02/04/20 02/05/20 23:59 23:59 23:59 Intake Total 495.83 / 495.83 1930.00 / 2290.00 480 / 480 Output Total 1400 / 1600 200 / 200 Balance 495.83 / 495.83 530.00 / 690.00 280 / 280 General: Alert, Cooperative HEENT: Atraumatic, Normocephalic Oral: No Gingival or Mucosal Lesions/ Ulcerations Neck: Supple, No Nodes, Trachea Midline Lungs: No rhonchi, No wheeze, No rales, Diminished Cardiovascular: Regular rate, Regular Rhythm Abdomen: Bowel Sounds Present, Soft, Non Tender Extremities: No clubbing, No cyanosis, No edema Skin: No breakdown Musculoskeletal: No Tenderness to Palpation of Joints or Extremities Lymphatic: No Cervical, Supraclavicular, or Inguinal Adenopathy Neurological: Neuro grossly intact Psych/Mental Status: Normal Affect, Appropriate Labs (Last 48 Hours) 02/03/20 02/03/20 02/03/20 16:03 16:03 16:03 WBC 4.5 RBC 4.68 Hgb 14.1 Hct 43.3 MCV 92.5 MCH 30.1 MCHC 32.6 RDW Std Deviation 44.5 H RDW Coeff of Smooth 13.0 Plt Count 143 L MPV 12.3 H Immature Gran % (Auto) 0.200 Neut % (Auto) 59.8 Lymph % (Auto) 33.3 Cook % (Auto) 5.6 Eos % (Auto) 0.4 Baso % (Auto) 0.7 Absolute Neuts (auto) 2.7 Absolute Lymphs (auto) 1.50 Nucleated RBC % 0 D-Dimer Quant (PE/DVT) Sodium 135 L Potassium 4.1 Chloride 96 L Carbon Dioxide 31.0 Anion Gap 8 BUN 29 H Creatinine 1.47 H Estim Creat Clear Calc 45.88 Est GFR (MDRD) Af Amer 61 Est GFR (MDRD) Non-Af 50 L BUN/Creatinine Ratio 19.7 Glucose 135 H Lactic Acid 1.2 Calcium 8.7 Total Bilirubin 0.40 AST 33 ALT 29 Alkaline Phosphatase 70 Troponin I < 0.015 Total Protein 7.7 Albumin 3.5 Globulin 4.2 Albumin/Globulin Ratio 0.8 L Procalcitonin Urine Color Urine Clarity Urine pH Ur Specific Hemlock Urine Protein Urine Glucose (UA) Urine Ketones Urine Occult Blood Urine Nitrite Urine Bilirubin Urine Urobilinogen Ur Leukocyte Esterase Urine RBC Urine WBC Ur Squamous Epith Cells Urine Bacteria Urine Mucus COVID-19 (MILKA) POC Glucose 02/03/20 02/03/20 02/03/20 16:15 17:35 22:21 WBC RBC Hgb Hct MCV MCH MCHC RDW Std Deviation RDW Coeff of Smooth Plt Count MPV Immature Gran % (Auto) Neut % (Auto) Lymph % (Auto) Cook % (Auto) Eos % (Auto) Baso % (Auto) Absolute Neuts (auto) Absolute Lymphs (auto) Nucleated RBC % D-Dimer Quant (PE/DVT) Sodium Potassium Chloride Carbon Dioxide Anion Gap BUN Creatinine Estim Creat Clear Calc Est GFR (MDRD) Af Amer Est GFR (MDRD) Non-Af BUN/Creatinine Ratio Glucose Lactic Acid Calcium Total Bilirubin AST ALT Alkaline Phosphatase Troponin I Total Protein Albumin Globulin Albumin/Globulin Ratio Procalcitonin Urine Color Yellow Urine Clarity Clear Urine pH 5.0 Ur Specific [place]lock 1.025 Urine Protein 15 H Urine Glucose (UA) 1000 H Urine Ketones 50 H Urine Occult Blood Negative Urine Nitrite Negative Urine Bilirubin Negative Urine Urobilinogen Normal Ur Leukocyte Esterase Negative Urine RBC 0 SEEN Urine WBC 0 SEEN Ur Squamous Epith Cells 0 SEEN Urine Bacteria 1+ Urine Mucus 0 SEEN COVID-19 (MILKA) Detected POC Glucose 109 02/04/20 02/04/20 02/04/20 06:32 07:20 07:20 WBC 4.6 RBC 4.51 L Hgb 13.6 Hct 42.6 MCV 94.5 H MCH 30.2 MCHC 31.9 L RDW Std Deviation 46.4 H RDW Coeff of Smooth 13.2 Plt Count 140 L MPV 12.1 H Immature Gran % (Auto) 0.400 Neut % (Auto) 77.8 H Lymph % (Auto) 19.0 Cook % (Auto) 2.2 Eos % (Auto) 0.2 Baso % (Auto) 0.4 Absolute Neuts (auto) 3.6 Absolute Lymphs (auto) 0.88 Nucleated RBC % 0 D-Dimer Quant (PE/DVT) Sodium 135 L Potassium 4.7 Chloride 100 Carbon Dioxide 27.0 Anion Gap 8 BUN 33 H Creatinine 1.47 H Estim Creat Clear Calc 45.88 Est GFR (MDRD) Af Amer 61 Est GFR (MDRD) Non-Af 50 L BUN/Creatinine Ratio 22.4 H Glucose 168 H Lactic Acid Calcium 8.0 L Total Bilirubin AST ALT Alkaline Phosphatase Troponin I Total Protein Albumin Globulin Albumin/Globulin Ratio Procalcitonin Urine Color Urine Clarity Urine pH Ur Specific Hem[place] Urine Protein Urine Glucose (UA) Urine Ketones Urine Occult Blood Urine Nitrite Urine Bilirubin Urine Urobilinogen Ur Leukocyte Esterase Urine RBC Urine WBC Ur Squamous Epith Cells Urine Bacteria Urine Mucus COVID-19 (MILKA) POC Glucose 173 H 02/04/20 02/04/20 02/04/20 09:00 09:00 13:15 WBC RBC Hgb Hct MCV MCH MCHC RDW Std Deviation RDW Coeff of Smooth Plt Count MPV Immature Gran % (Auto) Neut % (Auto) Lymph % (Auto) Cook % (Auto) Eos % (Auto) Baso % (Auto) Absolute Neuts (auto) Absolute Lymphs (auto) Nucleated RBC % D-Dimer Quant (PE/DVT) 0.98 H* Sodium Potassium Chloride Carbon Dioxide Anion Gap BUN Creatinine Estim Creat Clear Calc Est GFR (MDRD) Af Amer Est GFR (MDRD) Non-Af BUN/Creatinine Ratio Glucose Lactic Acid Calcium Total Bilirubin AST ALT Alkaline Phosphatase Troponin I Total Protein Albumin Globulin Albumin/Globulin Ratio Procalcitonin < 0.04 Urine Color Urine Clarity Urine pH Ur Specific Hem[place] Urine Protein Urine Glucose (UA) Urine Ketones Urine Occult Blood Urine Nitrite Urine Bilirubin Urine Urobilinogen Ur Leukocyte Esterase Urine RBC Urine WBC Ur Squamous Epith Cells Urine Bacteria Urine Mucus COVID-19 (MILKA) POC Glucose 298 H 02/04/20 02/04/20 02/05/20 16:25 21:23 06:30 WBC RBC Hgb Hct MCV MCH MCHC RDW Std Deviation RDW Coeff of Smooth Plt Count MPV Immature Gran % (Auto) Neut % (Auto) Lymph % (Auto) Cook % (Auto) Eos % (Auto) Baso % (Auto) Absolute Neuts (auto) Absolute Lymphs (auto) Nucleated RBC % D-Dimer Quant (PE/DVT) Sodium Potassium Chloride Carbon Dioxide Anion Gap BUN Creatinine Estim Creat Clear Calc Est GFR (MDRD) Af Amer Est GFR (MDRD) Non-Af BUN/Creatinine Ratio Glucose Lactic Acid Calcium Total Bilirubin AST ALT Alkaline Phosphatase Troponin I Total Protein Albumin Globulin Albumin/Globulin Ratio Procalcitonin Urine Color Urine Clarity Urine pH Ur Specific [place] Urine Protein Urine Glucose (UA) Urine Ketones Urine Occult Blood Urine Nitrite Urine Bilirubin Urine Urobilinogen Ur Leukocyte Esterase Urine RBC Urine WBC Ur Squamous Epith Cells Urine Bacteria Urine Mucus COVID-19 (MILKA) POC Glucose 328 H 327 H 224 H Clinical Impression(s) from Imaging Studies Brain CT 02/03/20 16:12 IMPRESSION: Chronic involutional changes of the brain. Electronically Signed: Jony López MD at 17:07 EDT Tel , Service support , Chest X-Ray 02/03/20 16:40 IMPRESSION: No active disease. Electronically Signed: Jony López MD at 16:58 EDT Tel , Service support , Current Medications Acetaminophen (Acetaminophen 325 Mg Tablet) 650 mg PO Q6H PRN PRN PRN Reason: Pain Score 1-10/Temp > 100.7 F Last Admin: 02/03/20 22:26 Dose: 650 mg Documented by: Aspirin (Aspirin E.C. 81 Mg Tablet) 81 mg PO DAILY [facility] Last Admin: 02/04/20 10:46 Dose: 81 mg Documented by: Bupropion HCl (Bupropion (Sr) 100 Mg Tablet.Sa) 100 mg PO LUNCH [facility] Last Admin: 02/04/20 13:23 Dose: 100 mg Documented by: Bupropion HCl (Bupropion (Xl) 300 Mg Tablet.Xl) 300 mg PO DAILY [facility] Last Admin: 02/04/20 10:48 Dose: 300 mg Documented by: Cholecalciferol (Cholecalciferol (Vit D3) 1,000 Unit (25mcg)) 2,000 unit PO DAILY [facility] Last Admin: 02/04/20 10:48 Dose: 2,000 unit Documented by: Clopidogrel Bisulfate (Clopidogrel Bisulfate 75 Mg Tablet) 75 mg PO DAILY [facility] Last Admin: 02/04/20 10:47 Dose: 75 mg Documented by: Dexamethasone (Dexamethasone 4 Mg Tablet) 6 mg PO DAILY@0800 [facility] Last Admin: 02/04/20 13:32 Dose: 6 mg Documented by: Dextrose (Dextrose 50%-Water 25 Gm/50 Ml Disp.Syrin) 0 gm IV X1 PRN; Protocol PRN Reason: Hypoglycemia Donepezil HCl (Donepezil Hcl 10 Mg Tablet) 20 mg PO QHS [facility] Last Admin: 02/04/20 21:30 Dose: 20 mg Documented by: Duloxetine HCl (Duloxetine Hcl 30 Mg Capsule) 30 mg PO BID [facility] Last Admin: 02/04/20 21:30 Dose: 30 mg Documented by: Empagliflozin (Empagliflozin 25 Mg Tablet) 25 mg PO DAILY [facility] Last Admin: 02/04/20 10:47 Dose: 25 mg Documented by: Enoxaparin Sodium (Enoxaparin 30 Mg/0.3 Ml Syringe) 30 mg SC Q12 [facility] Last Admin: 02/04/20 21:31 Dose: 30 mg Documented by: Gabapentin (Gabapentin 100 Mg Capsule) 100 mg PO TID [facility] Last Admin: 02/05/20 06:19 Dose: 100 mg Documented by: Glucagon (Glucagon 1 Mg/Ml Syringe) 1 mg IM .X1 PRN PRN Reason: Hypoglycemia Sodium Chloride () 250 mls @ 15 mls/hr IV .[id number] PRN PRN Reason: Saline Flush Sodium Chloride () 250 mls @ 15 mls/hr IV .[id number] PRN PRN Reason: Additional IVPB Infusion Sodium Chloride () 1,000 mls @ 75 mls/hr IV .[id number] [facility] Last Admin: 02/04/20 10:54 Dose: 75 mls/hr Documented by: Insulin Human Lispro (Insulin Lispro 100 Unit/Ml Insuln.Pen) 0 unit SC [facility]; Protocol Last Admin: 02/05/20 06:31 Dose: 2 u Documented by: Isosorbide Mononitrate (Isosorbide Mononitrate 120 Mg Tablet) 120 mg PO BID [facility] Last Admin: 02/04/20 21:31 Dose: 120 mg Documented by: Labetalol HCl (Labetalol (Prefilled) 20 Mg/4 Ml) 10 mg IV Q4H PRN PRN PRN Reason: SBP > 160; OR DBP > 120 Metoprolol Tartrate (Metoprolol Tartrate 25 Mg Tablet) 12.5 mg PO QHS [facility] Last Admin: 02/04/20 21:30 Dose: 12.5 mg Documented by: Multivitamins (Multivitamins,Therapeutic Tablet) 1 tablet PO DAILY [facility] Last Admin: 02/04/20 10:47 Dose: 1 tablet Documented by: Nutritional Formula (Lactose Free) (Ensure Enlive 120 Ml Liquid) 120 ml PO TIDAC [facility] Last Admin: 02/05/20 06:32 Dose: Not Given Documented by: Ondansetron HCl (Ondansetron 4 Mg/2 Ml Vial) 4 mg IV Q8H PRN PRN PRN Reason: NAUSEA/VOMITING Quetiapine Fumarate (Quetiapine 25 Mg Tablet) 25 mg PO BID [facility] Last Admin: 02/04/20 21:31 Dose: 25 mg Documented by: Sodium Chloride (0.9% Saline Lock 10 Ml Syringe) 10 - 40 ml IV UD PRN PRN Reason: SALINE FLUSH Last Admin: 02/04/20 10:49 Dose: 10 ml Documented by: Medical Necessity - Tobacco Use Smoking Status: Never smoker Assessment/Plan All Active Problems (Last Reviewed 02/03/20 @ 23:[address] 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 Wean supplemental oxygen to maintain saturations at or above 90%. 2. Continue Decadron 6 mg daily x10 days. 3. Encourage incentive spirometer use and mobilize patient as tolerated. 4. Start nocturnal PAP therapy with a pressure support of 12/8 centimeters of water. IMPRESSIONS: 1. Acute hypoxemic respiratory insufficiency secondary to COVID-19 pneumonia At the current time, the patient is stable from a clinical perspective with minimal supplemental oxygen requirement. From the best that I can tell, his symptoms have been present somewhere between 1.5 and 2 weeks in length. Therefore, given the duration of symptoms and underlying renal insufficiency, convalescent plasma and remdesivir would not be indicated. I would plan to continue Decadron 6 mg daily x10 days. Continue supplemental oxygen, with plans to wean to maintain saturations at or above 90%. Encourage incentive spirometer use and mobilize patient as tolerated. 2. History of obstructive sleep apnea Continue nocturnal Pap therapy per home regimen. This note was generated with edo dictation software. It may contain incorrect words, spelling, and punctuation that were not noted in checking the note before signing. Inpatient E&M: 72654 Subs Hosp L2
[2020-02-05] MEDS: Enoxaparin 30 MG/0.3 ML Syringe SC ×2 (10:40→21:44)
[2020-02-05] MEDS: DULoxetine Hcl 30 MG Capsule PO ×2 (10:40→21:43)
[2020-02-05] MEDS: QUEtiapine 25 MG Tablet PO ×2 (10:40→21:43)
[2020-02-05] MEDS: buPROPion (XL) 300 MG TABLET.XL PO (10:40)
[2020-02-05] MEDS: Aspirin E.C. 81 MG Tablet PO (10:41)
[2020-02-05] MEDS: Clopidogrel Bisulfate 75 MG Tablet PO (10:41)
[2020-02-05] MEDS: Empagliflozin 25 MG Tablet PO (10:41)
[2020-02-05] MEDS: dexAMETHasone 4 MG Tablet 6 MG PO (10:41)
[2020-02-05] MEDS: Multivitamins,Therapeutic Tablet 1 TABLET PO (10:41)
[2020-02-05 12:11] LABS: Bedside Glucose 278 mg/dL (70-110)
[2020-02-05] MEDS: buPROPion (SR) 100 MG TABLET.SA PO (13:20)
--- NOTE | 2020-02-05 15:22 | PCM.PN.HOSP ---
Patient Problems: Active and Suspected Problems (Last Reviewed 02/03/20 @ 23:[address] Louie Yang MD) COVID-19 (Acute) Mild dehydration (Acute) Reason for Visit: COVID 19 Subjective: Breathing well. No new complaints. Vitals/I&O's: Vital Signs Temp Pulse Resp BP Pulse Ox 36.6 C 60 18 154/82 H 94 02/05/20 14:49 02/05/20 14:49 02/05/20 14:49 02/05/20 14:49 02/05/20 14:49 Oxygen Flow Rate (L/min) 2 Oxygen Delivery Method Nasal Cannula Weight: 109.5 kg Body Mass Index (BMI) 36.7 Finger Stick Blood Glucose 272 Intake and Output for Last 24 Hours 02/03/20 02/04/20 02/05/20 23:59 23:59 23:59 Intake Total 495.83 / 495.83 1930.00 / 2290.00 1480 / 1480 Output Total 1400 / 1600 200 / 200 Balance 495.83 / 495.83 530.00 / 690.00 1280 / 1280 General: Alert, No apparent distress HEENT: Atraumatic, Normocephalic Oral: Moist Mucosa, No Gingival or Mucosal Lesions/ Ulcerations Neck: No Nodes, Thyroid Normal Size and Texture Lungs: Normal air movement, - - faint crackles Cardiovascular: Regular rate, Regular Rhythm, Normal S1, Normal S2, No murmurs Abdomen: Bowel Sounds Present, Soft, Non Tender, Non-Distended, No Hepato-splenomegaly Extremities: No edema, No Calf Tenderness Psych/Mental Status: Normal Affect, Appropriate Laboratory Results 02/04/20 16:25: POC Glucose 328 H 02/04/20 21:23: POC Glucose 327 H 02/05/20 06:30: POC Glucose 224 H 02/05/20 12:00: POC Glucose 278 H Current Medications Acetaminophen (Acetaminophen 325 Mg Tablet) 650 mg PO Q6H PRN PRN PRN Reason: Pain Score 1-10/Temp > 100.7 F Last Admin: 02/03/20 22:26 Dose: 650 mg Documented by: Aspirin (Aspirin E.C. 81 Mg Tablet) 81 mg PO DAILY [facility] Last Admin: 02/05/20 10:41 Dose: 81 mg Documented by: Bupropion HCl (Bupropion (Sr) 100 Mg Tablet.Sa) 100 mg PO LUNCH [facility] Last Admin: 02/05/20 13:20 Dose: 100 mg Documented by: Bupropion HCl (Bupropion (Xl) 300 Mg Tablet.Xl) 300 mg PO DAILY [facility] Last Admin: 02/05/20 10:40 Dose: 300 mg Documented by: Cholecalciferol (Cholecalciferol (Vit D3) 1,000 Unit (25mcg)) 2,000 unit PO DAILY [facility] Last Admin: 02/05/20 10:40 Dose: 2,000 unit Documented by: Clopidogrel Bisulfate (Clopidogrel Bisulfate 75 Mg Tablet) 75 mg PO DAILY [facility] Last Admin: 02/05/20 10:41 Dose: 75 mg Documented by: Dexamethasone (Dexamethasone 4 Mg Tablet) 6 mg PO DAILY@0800 [facility] Last Admin: 02/05/20 10:41 Dose: 6 mg Documented by: Dextrose (Dextrose 50%-Water 25 Gm/50 Ml Disp.Syrin) 0 gm IV X1 PRN; Protocol PRN Reason: Hypoglycemia Donepezil HCl (Donepezil Hcl 10 Mg Tablet) 20 mg PO QHS [facility] Last Admin: 02/04/20 21:30 Dose: 20 mg Documented by: Duloxetine HCl (Duloxetine Hcl 30 Mg Capsule) 30 mg PO BID [facility] Last Admin: 02/05/20 10:40 Dose: 30 mg Documented by: Empagliflozin (Empagliflozin 25 Mg Tablet) 25 mg PO DAILY [facility] Last Admin: 02/05/20 10:41 Dose: 25 mg Documented by: Enoxaparin Sodium (Enoxaparin 30 Mg/0.3 Ml Syringe) 30 mg SC Q12 [facility] Last Admin: 02/05/20 10:40 Dose: 30 mg Documented by: Gabapentin (Gabapentin 100 Mg Capsule) 100 mg PO TID [facility] Last Admin: 02/05/20 13:20 Dose: 100 mg Documented by: Glucagon (Glucagon 1 Mg/Ml Syringe) 1 mg IM .X1 PRN PRN Reason: Hypoglycemia Sodium Chloride () 250 mls @ 15 mls/hr IV .[id number] PRN PRN Reason: Saline Flush Sodium Chloride () 250 mls @ 15 mls/hr IV .[id number] PRN PRN Reason: Additional IVPB Infusion Insulin Human Lispro (Insulin Lispro 100 Unit/Ml Insuln.Pen) 0 unit SC ACHS [facility]; Protocol Last Admin: 02/05/20 12:02 Dose: 4 u Documented by: Isosorbide Mononitrate (Isosorbide Mononitrate 120 Mg Tablet) 120 mg PO BID [facility] Last Admin: 02/05/20 10:40 Dose: 120 mg Documented by: Labetalol HCl (Labetalol (Prefilled) 20 Mg/4 Ml) 10 mg IV Q4H PRN PRN PRN Reason: SBP > 160; OR DBP > 120 Metoprolol Tartrate (Metoprolol Tartrate 25 Mg Tablet) 12.5 mg PO QHS [facility] Last Admin: 02/04/20 21:30 Dose: 12.5 mg Documented by: Multivitamins (Multivitamins,Therapeutic Tablet) 1 tablet PO DAILY [facility] Last Admin: 02/05/20 10:41 Dose: 1 tablet Documented by: Nutritional Formula (Lactose Free) (Ensure Enlive 120 Ml Liquid) 120 ml PO TIDAC [facility] Last Admin: 02/05/20 12:02 Dose: Not Given Documented by: Ondansetron HCl (Ondansetron 4 Mg/2 Ml Vial) 4 mg IV Q8H PRN PRN PRN Reason: NAUSEA/VOMITING Quetiapine Fumarate (Quetiapine 25 Mg Tablet) 25 mg PO BID [facility] Last Admin: 02/05/20 10:40 Dose: 25 mg Documented by: Sodium Chloride (0.9% Saline Lock 10 Ml Syringe) 10 - 40 ml IV UD PRN PRN Reason: SALINE FLUSH Last Admin: 02/04/20 10:49 Dose: 10 ml Documented by: STROKE Vital Signs/Narrative: Vital Signs Temp Pulse Resp BP Pulse Ox 02/05/20 14:49 36.6 C 60 18 154/82 H 94 02/05/20 13:26 95 Medical Necessity - Tobacco Use Smoking Status: Never smoker Assessment/Plan All Active Problems (Last Reviewed 02/03/20 @ 23:[address] 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 acute COVID-19 pneumonia dexamethasone for 10 days 2. acute hypoxic respiratory failure improving 2/2 above wean oxygen as tolerated 3. Dm2, uncontrolled jardiance and SSI exacerbated by steroids 4. VTE prophylaxis: Inpatient E&M: 55070 Subs Hosp L2
--- NOTE | 2020-02-05 16:30 | PN.ID_ITS ---
Patient Problems: Active and Suspected Problems (Last Reviewed 02/03/20 @ 23:[address] Louie Yang MD) COVID-19 (Acute) Mild dehydration (Acute) Subjective: Feeling a little better, no fever, some dyspnea, no n/v/d. - Physical Exam Vitals/I&O's: Vital Signs Temp Pulse Resp BP Pulse Ox 97.9 F 60 18 154/82 H 96 02/05/20 14:49 02/05/20 14:49 02/05/20 14:49 02/05/20 14:49 02/05/20 15:05 Oxygen Flow Rate (L/min) 2 Oxygen Delivery Method Nasal Cannula Weight: 109.5 kg Body Mass Index (BMI) 36.7 Finger Stick Blood Glucose 272 Intake and Output for Last 24 Hours 02/03/20 02/04/20 02/05/20 23:59 23:59 23:59 Intake Total 495.83 / 495.83 1930.00 / 2290.00 1480 / 1480 Output Total 1400 / 1600 200 / 200 Balance 495.83 / 495.83 530.00 / 690.00 1280 / 1280 General: Alert, Cooperative, No apparent distress Lungs: Diminished Cardiovascular: Regular rate, Regular Rhythm Abdomen: Soft, Non Tender, Non-Distended Skin: No rashes Laboratory Results 02/04/20 16:25: POC Glucose 328 H 02/04/20 21:23: POC Glucose 327 H 02/05/20 06:30: POC Glucose 224 H 02/05/20 12:00: POC Glucose 278 H Current Medications Acetaminophen (Acetaminophen 325 Mg Tablet) 650 mg PO Q6H PRN PRN PRN Reason: Pain Score 1-10/Temp > 100.7 F Last Admin: 02/03/20 22:26 Dose: 650 mg Documented by: Aspirin (Aspirin E.C. 81 Mg Tablet) 81 mg PO DAILY [facility] Last Admin: 02/05/20 10:41 Dose: 81 mg Documented by: Bupropion HCl (Bupropion (Sr) 100 Mg Tablet.Sa) 100 mg PO LUNCH [facility] Last Admin: 02/05/20 13:20 Dose: 100 mg Documented by: Bupropion HCl (Bupropion (Xl) 300 Mg Tablet.Xl) 300 mg PO DAILY [facility] Last Admin: 02/05/20 10:40 Dose: 300 mg Documented by: Cholecalciferol (Cholecalciferol (Vit D3) 1,000 Unit (25mcg)) 2,000 unit PO DAILY [facility] Last Admin: 02/05/20 10:40 Dose: 2,000 unit Documented by: Clopidogrel Bisulfate (Clopidogrel Bisulfate 75 Mg Tablet) 75 mg PO DAILY [facility] Last Admin: 02/05/20 10:41 Dose: 75 mg Documented by: Dexamethasone (Dexamethasone 4 Mg Tablet) 6 mg PO DAILY@0800 [facility] Last Admin: 02/05/20 10:41 Dose: 6 mg Documented by: Dextrose (Dextrose 50%-Water 25 Gm/50 Ml Disp.Syrin) 0 gm IV X1 PRN; Protocol PRN Reason: Hypoglycemia Donepezil HCl (Donepezil Hcl 10 Mg Tablet) 20 mg PO QHS [facility] Last Admin: 02/04/20 21:30 Dose: 20 mg Documented by: Duloxetine HCl (Duloxetine Hcl 30 Mg Capsule) 30 mg PO BID [facility] Last Admin: 02/05/20 10:40 Dose: 30 mg Documented by: Empagliflozin (Empagliflozin 25 Mg Tablet) 25 mg PO DAILY [facility] Last Admin: 02/05/20 10:41 Dose: 25 mg Documented by: Enoxaparin Sodium (Enoxaparin 30 Mg/0.3 Ml Syringe) 30 mg SC Q12 [facility] Last Admin: 02/05/20 10:40 Dose: 30 mg Documented by: Gabapentin (Gabapentin 100 Mg Capsule) 100 mg PO TID [facility] Last Admin: 02/05/20 13:20 Dose: 100 mg Documented by: Glucagon (Glucagon 1 Mg/Ml Syringe) 1 mg IM .X1 PRN PRN Reason: Hypoglycemia Sodium Chloride () 250 mls @ 15 mls/hr IV .[id number] PRN PRN Reason: Saline Flush Sodium Chloride () 250 mls @ 15 mls/hr IV .[id number] PRN PRN Reason: Additional IVPB Infusion Insulin Human Lispro (Insulin Lispro 100 Unit/Ml Insuln.Pen) 0 unit SC ACHS [facility]; Protocol Last Admin: 02/05/20 12:02 Dose: 4 u Documented by: Isosorbide Mononitrate (Isosorbide Mononitrate 120 Mg Tablet) 120 mg PO BID [facility] Last Admin: 02/05/20 10:40 Dose: 120 mg Documented by: Labetalol HCl (Labetalol (Prefilled) 20 Mg/4 Ml) 10 mg IV Q4H PRN PRN PRN Reason: SBP > 160; OR DBP > 120 Metoprolol Tartrate (Metoprolol Tartrate 25 Mg Tablet) 12.5 mg PO QHS [facility] Last Admin: 02/04/20 21:30 Dose: 12.5 mg Documented by: Multivitamins (Multivitamins,Therapeutic Tablet) 1 tablet PO DAILY [facility] Last Admin: 02/05/20 10:41 Dose: 1 tablet Documented by: Nutritional Formula (Lactose Free) (Ensure Enlive 120 Ml Liquid) 120 ml PO TIDAC [facility] Last Admin: 02/05/20 12:02 Dose: Not Given Documented by: Ondansetron HCl (Ondansetron 4 Mg/2 Ml Vial) 4 mg IV Q8H PRN PRN PRN Reason: NAUSEA/VOMITING Quetiapine Fumarate (Quetiapine 25 Mg Tablet) 25 mg PO BID [facility] Last Admin: 02/05/20 10:40 Dose: 25 mg Documented by: Sodium Chloride (0.9% Saline Lock 10 Ml Syringe) 10 - 40 ml IV UD PRN PRN Reason: SALINE FLUSH Last Admin: 02/04/20 10:49 Dose: 10 ml Documented by: Medical Necessity - Tobacco Use Smoking Status: Never smoker Route of nutrition/ use of supplements: [] Nutritional Intake: [] IV Site: [] Hill Catheter: [] - Assessment/Plan Antibiotics: [] Assessment/Plan: [] Active and Suspected Problems (Last Reviewed 02/03/20 @ 23:[address] Louie Yang MD) COVID-19 (Acute) Mild dehydration (Acute) covid with hypoxia - on dex, fever improved, starting to feel better. Ddimer mild elevation, PCT normal. On lovenox 30 bid. Not candidate for plasma or remdesivir as sx over 2 weeks. On 2-3L this afternoon, ok for home when O2 is arranged, no need for further steroids at discharge. Will follow
[2020-02-05 17:35] LABS: Bedside Glucose 255 mg/dL (70-110)
[2020-02-05] MEDS: Metoprolol Tartrate 25 MG Tablet 12.5 MG PO (21:43)
[2020-02-05] MEDS: Donepezil HCl 10 MG Tablet 20 MG PO (21:43)
[2020-02-05 22:06] LABS: Bedside Glucose 243 mg/dL (70-110)
[2020-02-05] MEDS: 0.9% Saline Lock 10 ML Syringe IV (22:17)
[2020-02-05] MEDS: Labetalol (Prefilled) 20 MG/4 ML 10 MG IV (22:17)
[2020-02-06] VITALS (7 sets, daily range): BP systolic 144–163; BP diastolic 71–73; PULSE 51–69; RESP 16–19; TEMP 36.5–37.7; O2SAT 93–95
[2020-02-06] MEDS: Gabapentin 100 MG Capsule PO ×2 (06:51→14:45)
[2020-02-06] MEDS: Insulin Lispro 100 UNIT/ML INSULN.PEN SC ×3 (06:51→16:41)
[2020-02-06 07:06] LABS: Bedside Glucose 237 mg/dL (70-110)
--- NOTE | 2020-02-06 07:13 | PN_ITS ---
Patient Problems: Active and Suspected Problems (Last Reviewed 02/03/20 @ 23:[address] Louie Yang MD) COVID-19 (Acute) Mild dehydration (Acute) Subjective: The patient was seen and examined at the bedside this morning. Events from the last 24 hours have been reviewed. The patient is currently afebrile, hemodynamically stable and maintaining appropriate oxygen saturations on 2 L/min via nasal cannula. The patient is currently documented to be overall net +2.6 L for the hospital admission. The patient remains on scheduled daily Decadron therapy. He denies the presence of shortness of breath but does report a mild nonproductive cough. He does appear that therapy is recommending additional rehab. Objective: The patient's most recent lab work, culture data and imaging studies have all been personally reviewed. Surface echocardiogram from November 2019 revealed an ejection fraction of 50% with stage II diastolic dysfunction. Coronavirus PCR was positive on February 02. Blood cultures have shown no growth to date. - Physical Exam Vitals/I&O's: Vital Signs Temp Pulse Resp BP Pulse Ox 97.7 F L 60 19 H 145/71 H 94 02/06/20 04:30 02/06/20 04:30 02/06/20 04:30 02/06/20 04:30 02/06/20 04:30 Oxygen Flow Rate (L/min) 2 Oxygen Delivery Method Nasal Cannula Weight: 241 lb 6.499 oz Body Mass Index (BMI) 36.7 Finger Stick Blood Glucose 272 Intake and Output for Last 24 Hours 02/04/20 02/05/20 02/06/20 23:59 23:59 23:59 Intake Total 1930.00 / 2290.00 1480 / 1960 680 / 680 Output Total 1400 / 1600 500 / 500 Balance 530.00 / 690.00 980 / 1460 680 / 680 General: Alert, Cooperative, No apparent distress HEENT: Atraumatic, PERRLA, Normocephalic Oral: Moist Mucosa, No Gingival or Mucosal Lesions/ Ulcerations Neck: Supple, No Nodes, Trachea Midline Lungs: No rhonchi, No wheeze, No rales, Diminished Cardiovascular: Regular rate, Regular Rhythm Abdomen: Bowel Sounds Present, Soft, Non Tender Extremities: No clubbing, No cyanosis, No edema Skin: No breakdown Musculoskeletal: No Tenderness to Palpation of Joints or Extremities Lymphatic: No Cervical, Supraclavicular, or Inguinal Adenopathy Neurological: Neuro grossly intact Psych/Mental Status: Normal Affect Labs (Last 48 Hours) 02/04/20 02/04/20 02/04/20 07:20 07:20 09:00 WBC 4.6 RBC 4.51 L Hgb 13.6 Hct 42.6 MCV 94.5 H MCH 30.2 MCHC 31.9 L RDW Std Deviation 46.4 H RDW Coeff of Smooth 13.2 Plt Count 140 L MPV 12.1 H Immature Gran % (Auto) 0.400 Neut % (Auto) 77.8 H Lymph % (Auto) 19.0 [place] % (Auto) 2.2 Eos % (Auto) 0.2 Baso % (Auto) 0.4 Absolute Neuts (auto) 3.6 Absolute Lymphs (auto) 0.88 Nucleated RBC % 0 D-Dimer Quant (PE/DVT) 0.98 H* Sodium 135 L Potassium 4.7 Chloride 100 Carbon Dioxide 27.0 Anion Gap 8 BUN 33 H Creatinine 1.47 H Estim Creat Clear Calc 45.88 Est GFR (MDRD) Af Amer 61 Est GFR (MDRD) Non-Af 50 L BUN/Creatinine Ratio 22.4 H Glucose 168 H Calcium 8.0 L Procalcitonin POC Glucose 02/04/20 02/04/20 02/04/20 09:00 13:15 16:25 WBC RBC Hgb Hct MCV MCH MCHC RDW Std Deviation RDW Coeff of Smooth Plt Count MPV Immature Gran % (Auto) Neut % (Auto) Lymph % (Auto) [place] % (Auto) Eos % (Auto) Baso % (Auto) Absolute Neuts (auto) Absolute Lymphs (auto) Nucleated RBC % D-Dimer Quant (PE/DVT) Sodium Potassium Chloride Carbon Dioxide Anion Gap BUN Creatinine Estim Creat Clear Calc Est GFR (MDRD) Af Amer Est GFR (MDRD) Non-Af BUN/Creatinine Ratio Glucose Calcium Procalcitonin < 0.04 POC Glucose 298 H 328 H 02/04/20 02/05/20 02/05/20 21:23 06:30 12:00 WBC RBC Hgb Hct MCV MCH MCHC RDW Std Deviation RDW Coeff of Smooth Plt Count MPV Immature Gran % (Auto) Neut % (Auto) Lymph % (Auto) [place] % (Auto) Eos % (Auto) Baso % (Auto) Absolute Neuts (auto) Absolute Lymphs (auto) Nucleated RBC % D-Dimer Quant (PE/DVT) Sodium Potassium Chloride Carbon Dioxide Anion Gap BUN Creatinine Estim Creat Clear Calc Est GFR (MDRD) Af Amer Est GFR (MDRD) Non-Af BUN/Creatinine Ratio Glucose Calcium Procalcitonin POC Glucose 327 H 224 H 278 H 02/05/20 02/05/20 02/06/20 17:20 21:56 06:50 WBC RBC Hgb Hct MCV MCH MCHC RDW Std Deviation RDW Coeff of Smooth Plt Count MPV Immature Gran % (Auto) Neut % (Auto) Lymph % (Auto) [place] % (Auto) Eos % (Auto) Baso % (Auto) Absolute Neuts (auto) Absolute Lymphs (auto) Nucleated RBC % D-Dimer Quant (PE/DVT) Sodium Potassium Chloride Carbon Dioxide Anion Gap BUN Creatinine Estim Creat Clear Calc Est GFR (MDRD) Af Amer Est GFR (MDRD) Non-Af BUN/Creatinine Ratio Glucose Calcium Procalcitonin POC Glucose 255 H 243 H 237 H Clinical Impression(s) from Imaging Studies Brain CT 02/03/20 16:12 IMPRESSION: Chronic involutional changes of the brain. Electronically Signed: Jony López MD at 17:07 EDT Tel , Service support , Chest X-Ray 02/03/20 16:40 IMPRESSION: No active disease. Electronically Signed: Jony López MD at 16:58 EDT Tel , Service support , Current Medications Acetaminophen (Acetaminophen 325 Mg Tablet) 650 mg PO Q6H PRN PRN PRN Reason: Pain Score 1-10/Temp > 100.7 F Last Admin: 02/03/20 22:26 Dose: 650 mg Documented by: Aspirin (Aspirin E.C. 81 Mg Tablet) 81 mg PO DAILY [facility] Last Admin: 02/05/20 10:41 Dose: 81 mg Documented by: Bupropion HCl (Bupropion (Sr) 100 Mg Tablet.Sa) 100 mg PO LUNCH [facility] Last Admin: 02/05/20 13:20 Dose: 100 mg Documented by: Bupropion HCl (Bupropion (Xl) 300 Mg Tablet.Xl) 300 mg PO DAILY [facility] Last Admin: 02/05/20 10:40 Dose: 300 mg Documented by: Cholecalciferol (Cholecalciferol (Vit D3) 1,000 Unit (25mcg)) 2,000 unit PO DAILY [facility] Last Admin: 02/05/20 10:40 Dose: 2,000 unit Documented by: Clopidogrel Bisulfate (Clopidogrel Bisulfate 75 Mg Tablet) 75 mg PO DAILY [facility] Last Admin: 02/05/20 10:41 Dose: 75 mg Documented by: Dexamethasone (Dexamethasone 4 Mg Tablet) 6 mg PO DAILY@0800 [facility] Last Admin: 02/05/20 10:41 Dose: 6 mg Documented by: Dextrose (Dextrose 50%-Water 25 Gm/50 Ml Disp.Syrin) 0 gm IV X1 PRN; Protocol PRN Reason: Hypoglycemia Donepezil HCl (Donepezil Hcl 10 Mg Tablet) 20 mg PO QHS [facility] Last Admin: 02/05/20 21:43 Dose: 20 mg Documented by: Duloxetine HCl (Duloxetine Hcl 30 Mg Capsule) 30 mg PO BID [facility] Last Admin: 02/05/20 21:43 Dose: 30 mg Documented by: Empagliflozin (Empagliflozin 25 Mg Tablet) 25 mg PO DAILY [facility] Last Admin: 02/05/20 10:41 Dose: 25 mg Documented by: Enoxaparin Sodium (Enoxaparin 30 Mg/0.3 Ml Syringe) 30 mg SC Q12 [facility] Last Admin: 02/05/20 21:44 Dose: 30 mg Documented by: Gabapentin (Gabapentin 100 Mg Capsule) 100 mg PO TID [facility] Last Admin: 02/06/20 06:51 Dose: 100 mg Documented by: Glucagon (Glucagon 1 Mg/Ml Syringe) 1 mg IM .X1 PRN PRN Reason: Hypoglycemia Sodium Chloride () 250 mls @ 15 mls/hr IV .[id number] PRN PRN Reason: Saline Flush Sodium Chloride () 250 mls @ 15 mls/hr IV .[id number] PRN PRN Reason: Additional IVPB Infusion Insulin Human Lispro (Insulin Lispro 100 Unit/Ml Insuln.Pen) 0 unit SC ACHS [facility]; Protocol Last Admin: 02/06/20 06:51 Dose: 3 u Documented by: Isosorbide Mononitrate (Isosorbide Mononitrate 120 Mg Tablet) 120 mg PO BID [facility] Last Admin: 02/05/20 21:43 Dose: 120 mg Documented by: Labetalol HCl (Labetalol (Prefilled) 20 Mg/4 Ml) 10 mg IV Q4H PRN PRN PRN Reason: SBP > 160; OR DBP > 120 Last Admin: 02/05/20 22:17 Dose: 10 mg Documented by: Metoprolol Tartrate (Metoprolol Tartrate 25 Mg Tablet) 12.5 mg PO QHS [facility] Last Admin: 02/05/20 21:43 Dose: 12.5 mg Documented by: Multivitamins (Multivitamins,Therapeutic Tablet) 1 tablet PO DAILY [facility] Last Admin: 02/05/20 10:41 Dose: 1 tablet Documented by: Nutritional Formula (Lactose Free) (Ensure Enlive 120 Ml Liquid) 120 ml PO TIDAC [facility] Last Admin: 02/06/20 06:51 Dose: 120 ml Documented by: Ondansetron HCl (Ondansetron 4 Mg/2 Ml Vial) 4 mg IV Q8H PRN PRN PRN Reason: NAUSEA/VOMITING Quetiapine Fumarate (Quetiapine 25 Mg Tablet) 25 mg PO BID [facility] Last Admin: 02/05/20 21:43 Dose: 25 mg Documented by: Sodium Chloride (0.9% Saline Lock 10 Ml Syringe) 10 - 40 ml IV UD PRN PRN Reason: SALINE FLUSH Last Admin: 02/05/20 22:17 Dose: 30 ml Documented by: Medical Necessity - Tobacco Use Smoking Status: Never smoker Assessment/Plan All Active Problems (Last Reviewed 02/03/20 @ 23:[address] 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 Wean supplemental oxygen to maintain saturations at or above 90%. 2. Continue Decadron 6 mg daily until discharge. 3. Encourage incentive spirometer use and mobilize patient as tolerated. 4. Start nocturnal PAP therapy with a pressure support of 12/8 centimeters of water. 5. The patient is medically stable for discharge from my perspective with supplemental oxygen. 6. Will sign off from a pulmonary perspective. Please call with any additional questions. IMPRESSIONS: 1. Acute hypoxemic respiratory insufficiency secondary to COVID-19 pneumonia At the current time, the patient is stable from a clinical perspective with minimal supplemental oxygen requirement. From the best that I can tell, his symptoms have been present somewhere between 1.5 and 2 weeks in length. Therefore, given the duration of symptoms and underlying renal insufficiency, convalescent plasma and remdesivir would not be indicated. I would plan to continue Decadron 6 mg daily until discharge from the hospital. Continue supplemental oxygen, with plans to wean to maintain saturations at or above 90%. Encourage incentive spirometer use and mobilize patient as tolerated. The patient can be discharged from my perspective with home-going supplemental O2. 2. History of obstructive sleep apnea Continue nocturnal Pap therapy per home regimen. This note was generated with [employer] dictation software. It may contain incorrect words, spelling, and punctuation that were not noted in checking the note before signing. Inpatient E&M: 85243 Subs Hosp L2
[2020-02-06] MEDS: buPROPion (XL) 300 MG TABLET.XL PO (09:02)
[2020-02-06] MEDS: Aspirin E.C. 81 MG Tablet PO (09:03)
[2020-02-06] MEDS: dexAMETHasone 4 MG Tablet 6 MG PO (09:03)
[2020-02-06] MEDS: Multivitamins,Therapeutic Tablet 1 TABLET PO (09:03)
[2020-02-06] MEDS: Enoxaparin 30 MG/0.3 ML Syringe SC (09:03)
[2020-02-06] MEDS: DULoxetine Hcl 30 MG Capsule PO (09:03)
[2020-02-06] MEDS: QUEtiapine 25 MG Tablet PO (09:03)
[2020-02-06] MEDS: Clopidogrel Bisulfate 75 MG Tablet PO (09:03)
[2020-02-06] MEDS: Empagliflozin 25 MG Tablet PO (09:05)
--- NOTE | 2020-02-06 09:43 | CASEMGMT ---
Addendum entered by Vilma Weller 02/06/20 13:06: Meds sent to [facility] retail pharmacy for ease of discharge for pt. Call to Tamiko in pharmacy and she states pt has no co-pay for meds at this time. Tamiko states pharmacy will bring meds to floor to give to pt's nurse to give to pt for discharge. Kendall KIM updated, voices understanding. Yumiko KIM CM Addendum entered by Vilma Weller 02/06/20 10:40: Per Kendall KIM, pt does not qualify for home oxygen at rest or with ambulation at this time. Pt's , Tiffanie, updated at this time, voices understanding. Kendall KIM aware to call to get ride set up for pt discharge, voices understanding. Yumiko KIM CM Original Note: Per Dr. Castro, pt to be discharged today after home oxygen testing. Call to Tiffanie, , to notify, voices understanding and states she has someone who will be able to pick pt up. Tiffanie states pt's cpap is through [facility]. Tiffanie, , states no preference for DME company at this time. Tiffanie states no further concerns/needs for pt at this time and declines need for any further therapy. CM to follow for O2 testing. Kendall KIM updated on all, voices understanding. Yumiko KIM CM
[2020-02-06] MEDS: buPROPion (SR) 100 MG TABLET.SA PO (11:35)
[2020-02-06 11:45] LABS: Bedside Glucose 372 mg/dL (70-110)
--- NOTE | 2020-02-06 11:48 | PCM.PN.ID ---
Patient Problems: Active and Suspected Problems (Last Reviewed 02/03/20 @ 23:[address] Louie Yang MD) COVID-19 (Acute) Mild dehydration (Acute) Subjective: Feeling well, off O2, no fever - Physical Exam Vitals/I&O's: Vital Signs Temp Pulse Resp BP Pulse Ox 99.9 F H 67 16 163/73 H 95 02/06/20 08:26 02/06/20 08:26 02/06/20 08:26 02/06/20 08:26 02/06/20 10:39 Oxygen Flow Rate (L/min) [ 0 AMBULATING on Room Air] Oxygen Flow Rate (L/min) [At 0 REST on Room Air] Oxygen Flow Rate (L/min) 2 Oxygen Delivery Method Nasal Cannula Weight: 109.5 kg Body Mass Index (BMI) 36.7 Finger Stick Blood Glucose 272 Intake and Output for Last 24 Hours 02/04/20 02/05/20 02/06/20 23:59 23:59 23:59 Intake Total 1930.00 / 2290.00 1480 / 1960 680 / 680 Output Total 1400 / 1600 500 / 500 Balance 530.00 / 690.00 980 / 1460 680 / 680 General: Alert, Cooperative, No apparent distress Lungs: Clear to auscultation, Diminished Cardiovascular: Regular rate, Regular Rhythm Abdomen: Soft, Non Tender, Non-Distended Skin: No rashes Microbiology Past 72 Hours 02/03/20 16:10 Blood Culture (Wb) - Right Hand Blood Culture - Preliminary No growth in 48 hours. 02/03/20 16:03 Blood Culture (Wb) - Anticubital Right Blood Culture - Preliminary No growth in 48 hours. Laboratory Results 02/05/20 12:00: POC Glucose 278 H 02/05/20 17:20: POC Glucose 255 H 02/05/20 21:56: POC Glucose 243 H 02/06/20 06:50: POC Glucose 237 H 02/06/20 11:32: POC Glucose 372 H Current Medications Acetaminophen (Acetaminophen 325 Mg Tablet) 650 mg PO Q6H PRN PRN PRN Reason: Pain Score 1-10/Temp > 100.7 F Last Admin: 02/03/20 22:26 Dose: 650 mg Documented by: Aspirin (Aspirin E.C. 81 Mg Tablet) 81 mg PO DAILY [facility] Last Admin: 02/06/20 09:03 Dose: 81 mg Documented by: Bupropion HCl (Bupropion (Sr) 100 Mg Tablet.Sa) 100 mg PO LUNCH [facility] Last Admin: 02/06/20 11:35 Dose: 100 mg Documented by: Bupropion HCl (Bupropion (Xl) 300 Mg Tablet.Xl) 300 mg PO DAILY [facility] Last Admin: 02/06/20 09:02 Dose: 300 mg Documented by: Cholecalciferol (Cholecalciferol (Vit D3) 1,000 Unit (25mcg)) 2,000 unit PO DAILY [facility] Last Admin: 02/06/20 09:02 Dose: 2,000 unit Documented by: Clopidogrel Bisulfate (Clopidogrel Bisulfate 75 Mg Tablet) 75 mg PO DAILY [facility] Last Admin: 02/06/20 09:03 Dose: 75 mg Documented by: Dexamethasone (Dexamethasone 4 Mg Tablet) 6 mg PO DAILY@0800 [facility] Last Admin: 02/06/20 09:03 Dose: 6 mg Documented by: Dextrose (Dextrose 50%-Water 25 Gm/50 Ml Disp.Syrin) 0 gm IV X1 PRN; Protocol PRN Reason: Hypoglycemia Donepezil HCl (Donepezil Hcl 10 Mg Tablet) 20 mg PO QHS [facility] Last Admin: 02/05/20 21:43 Dose: 20 mg Documented by: Duloxetine HCl (Duloxetine Hcl 30 Mg Capsule) 30 mg PO BID [facility] Last Admin: 02/06/20 09:03 Dose: 30 mg Documented by: Empagliflozin (Empagliflozin 25 Mg Tablet) 25 mg PO DAILY [facility] Last Admin: 02/06/20 09:05 Dose: 25 mg Documented by: Enoxaparin Sodium (Enoxaparin 30 Mg/0.3 Ml Syringe) 30 mg SC Q12 [facility] Last Admin: 02/06/20 09:03 Dose: 30 mg Documented by: Gabapentin (Gabapentin 100 Mg Capsule) 100 mg PO TID [facility] Last Admin: 02/06/20 06:51 Dose: 100 mg Documented by: Glucagon (Glucagon 1 Mg/Ml Syringe) 1 mg IM .X1 PRN PRN Reason: Hypoglycemia Sodium Chloride () 250 mls @ 15 mls/hr IV .[id number] PRN PRN Reason: Saline Flush Sodium Chloride () 250 mls @ 15 mls/hr IV .[id number] PRN PRN Reason: Additional IVPB Infusion Insulin Human Lispro (Insulin Lispro 100 Unit/Ml Insuln.Pen) 0 unit SC ACHS [facility]; Protocol Last Admin: 02/06/20 11:33 Dose: 6 u Documented by: Isosorbide Mononitrate (Isosorbide Mononitrate 120 Mg Tablet) 120 mg PO BID [facility] Last Admin: 02/06/20 09:03 Dose: 120 mg Documented by: Labetalol HCl (Labetalol (Prefilled) 20 Mg/4 Ml) 10 mg IV Q4H PRN PRN PRN Reason: SBP > 160; OR DBP > 120 Last Admin: 02/05/20 22:17 Dose: 10 mg Documented by: Metoprolol Tartrate (Metoprolol Tartrate 25 Mg Tablet) 12.5 mg PO QHS [facility] Last Admin: 02/05/20 21:43 Dose: 12.5 mg Documented by: Multivitamins (Multivitamins,Therapeutic Tablet) 1 tablet PO DAILY [facility] Last Admin: 02/06/20 09:03 Dose: 1 tablet Documented by: Nutritional Formula (Lactose Free) (Ensure Enlive 120 Ml Liquid) 120 ml PO TIDAC [facility] Last Admin: 02/06/20 11:42 Dose: Not Given Documented by: Ondansetron HCl (Ondansetron 4 Mg/2 Ml Vial) 4 mg IV Q8H PRN PRN PRN Reason: NAUSEA/VOMITING Quetiapine Fumarate (Quetiapine 25 Mg Tablet) 25 mg PO BID [facility] Last Admin: 02/06/20 09:03 Dose: 25 mg Documented by: Sodium Chloride (0.9% Saline Lock 10 Ml Syringe) 10 - 40 ml IV UD PRN PRN Reason: SALINE FLUSH Last Admin: 02/05/20 22:17 Dose: 30 ml Documented by: Medical Necessity - Tobacco Use Smoking Status: Never smoker Route of nutrition/ use of supplements: [] Nutritional Intake: [] IV Site: [] Hill Catheter: [] - Assessment/Plan Antibiotics: [] Assessment/Plan: [] Active and Suspected Problems (Last Reviewed 02/03/20 @ 23:[address] Louie Yang MD) COVID-19 (Acute) Mild dehydration (Acute) covid with hypoxia - on dex, fever improved, starting to feel better. Ddimer mild elevation, PCT normal. On lovenox 30 bid. Not candidate for plasma or remdesivir as sx over 2 weeks. Ok for home with O2 as needed, no need for further steroids at discharge. Will follow
--- NOTE | 2020-02-06 12:05 | PCM.DC ---
- Discharge Diagnoses Current Active Problems: Current Active and Chronic Problems (Last Reviewed 02/03/20 @ 23:[address] Louie Yang MD) COVID-19 (Acute) Mild dehydration (Acute) Dementia (Chronic) Peripheral vascular disease (Chronic) BMI 38.0-38.9,adult (Chronic) JOSÉ MIGUEL (obstructive sleep apnea) (Chronic) AHI 45.4 Status post revision of total replacement of left knee (Chronic) History of DVT (deep vein thrombosis) (Chronic) Patient was on Xarelto for this, is not presently Nonrheumatic tricuspid (valve) insufficiency (Chronic) Mild (1+) per echo 02/17/2018 Secondary pulmonary hypertension (Chronic) Mild, RVSP 45 mmhg per echo 02/17/2018 Grade II diastolic dysfunction (Chronic) Per echo 02/17/2018 Systolic and diastolic CHF, 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% per echo February 2018 Stented coronary artery (Chronic 03/15/18) JACI of proximal LCX w/3.0 X 38 Promus Syncergy 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) JACI of proximal LCX w/3.0 X 38 Promus Syncergy Non-STEMI (non-ST elevated myocardial infarction) (Chronic 03/15/18) HLD (hyperlipidemia) (Chronic) HTN (hypertension) (Chronic) DM2 (diabetes mellitus, type 2) (Chronic) You will use the following diet at home:: Cardiac Your food should be the consistency of: Regular Your liquids should be the consistency of: Regular/Thin Allergies/Adverse Reactions: Allergies hydrochlorothiazide Allergy (Verified 02/03/20 20:28) Unknown Penicillins [PCN] Allergy (Verified 02/03/20 20:28) Swelling pioglitazone [From Actos] Allergy (Verified 02/03/20 20:28) Unknown gemfibrozil Adverse Reaction (Severe, Verified 02/03/20 20:28) caused very high blood glucose oxycodone [From OxyIR] Adverse Reaction (Verified 02/03/20 20:28) Other pravastatin Adverse Reaction (Verified 02/03/20 20:28) Pain in joints Medications to take at Discharge Aspirin [Aspirin EC] 81 mg PO DAILY 03/15/17 Bupropion HCl [Bupropion HCl ER] 100 mg PO LUNCH 03/15/17 Gabapentin [Neurontin] 300 mg PO TID 03/15/17 Multivitamin [Multiple Vitamins] 1 ea PO DAILY 03/15/17 buPROPion XL [Wellbutrin Xl] 300 mg PO DAILY 03/15/17 Quetiapine Fumarate [Seroquel] 25 mg PO BID 01/24/18 metoprolol tartrate 25 mg tablet 12.5 mg PO QHS tab 07/13/18 insulin aspar prot-insulin aspart 100 unit/mL (70-30) subcutaneous pen See Rx Instructions SUBCUT .ac ml 10/05/18 nitroglycerin 0.4 mg sublingual tablet 0.4 mg SUBLINGUAL Q5-15M PRN #25 tab 10/05/18 icosapent ethyl 1 gram capsule 2 g PO BID #120 cap 08/23/19 donepezil 10 mg tablet 20 mg PO QHS tab 09/09/19 duloxetine 30 mg capsule,delayed release sprinkle 30 mg PO BID cap 09/09/19 empagliflozin 25 mg tablet 25 mg PO DAILY 09/09/19 Cholecalciferol (Vitamin D3) [Vitamin D3] 2,000 unit PO DAILY 02/03/20 Clopidogrel Bisulfate [Plavix] 75 mg PO DAILY 02/03/20 Furosemide [Lasix] 20 mg PO DAILY 02/03/20 Isosorbide Mononitrate [Isosorbide Mononitrate ER] 120 mg PO BID 02/03/20 Lisinopril 20 mg PO BID 02/03/20 Rivaroxaban [Xarelto] 10 mg PO DAILY #14 tab 02/06/20 The following prescriptions were given: Rivaroxaban [Xarelto] 10 mg PO DAILY #14 tab Transmission Status: Pending to [facility] Primary Care Physician: Juve Reed MD [Primary Care Provider] - Within 1 Week Test Results: Test results from this visit will be discussed in further detail at your follow-up appointment, if applicable. Proposed Discharge Date: 02/06/20
--- NOTE | 2020-02-06 12:06 | DS.PCM_ITS ---
Discharge Date and Diagnosis - Problem List Patient Problems: Active and Suspected Problems (Last Reviewed 02/03/20 @ 23:[address] Louie Yang MD) COVID-19 (Acute) Mild dehydration (Acute) Date of Admission: 02/03/20 Date of Discharge: 02/06/20 - Primary Discharge Diagnosis Acute Problems: Active Problems (Last Reviewed 02/03/20 @ 23:[address] Louie Yang MD) COVID-19 (Acute) Mild dehydration (Acute) - Secondary Discharge Diagnosis Chronic Problems: Chronic Problems (Last Reviewed 02/03/20 @ 23:[address] 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% per echo February 2018 Stented coronary artery (Chronic 03/15/18) JACI of proximal LCX w/3.0 X 38 Promus Syncergy 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 Electronically Signed: Jony López MD at 17:07 EDT Tel , Service support , Chest X-Ray 02/03/20 16:40 IMPRESSION: No active disease. Electronically Signed: Jony López MD at 16:58 EDT Tel , Service support , JOSE Mercedes, Justin Operations: None Procedures: None Summary of Care Provided: The patient is a 69 year old M presents with weakness. Patient had 7 to 10-day history of weakness prior to arrival. Patient was having only using fever and chills. Family was unable to care for him so brought him into the hospital. Patient was evaluated for COVID-19 and was tested positive. Patient was started on dexamethasone and consults were placed to pulmonology as well as infectious disease. Patient has steadily improved during the course of his hospitalization. Patient did have an elevated D-dimer. Patient today is no longer requiring oxygen, even with ambulation. Patient was seen by therapy and does not recommend any additional home-going needs at this time. Patient will be discharged home in stable condition. Given elevated D-dimer and coagulopathy that can be associated with COVID-19, patient will be prescribed 14-day course of rivaroxaban 10 mg. [] Patient Problems: Active and Suspected Problems (Last Reviewed 02/03/20 @ 23:[address] Louie Yang MD) COVID-19 (Acute) Mild dehydration (Acute) - Physical Exam Vitals/I&O's: Vital Signs Temp Pulse Resp BP Pulse Ox 37.7 C H 67 16 163/73 H 95 02/06/20 08:26 02/06/20 08:26 02/06/20 08:26 02/06/20 08:26 02/06/20 10:39 Oxygen Flow Rate (L/min) [ 0 AMBULATING on Room Air] Oxygen Flow Rate (L/min) [At 0 REST on Room Air] Oxygen Flow Rate (L/min) 2 Oxygen Delivery Method Nasal Cannula Weight: 109.5 kg Body Mass Index (BMI) 36.7 Finger Stick Blood Glucose 272 Intake and Output for Last 24 Hours 02/04/20 02/05/20 02/06/20 23:59 23:59 23:59 Intake Total 1930.00 / 2290.00 1480 / 1960 680 / 680 Output Total 1400 / 1600 500 / 500 Balance 530.00 / 690.00 980 / 1460 680 / 680 General: Alert, No apparent distress HEENT: Atraumatic, Normocephalic Oral: Moist Mucosa, No Gingival or Mucosal Lesions/ Ulcerations Neck: No Nodes, Thyroid Normal Size and Texture Lungs: Clear to auscultation, Normal air movement, No rhonchi, No wheeze Cardiovascular: Regular rate, Regular Rhythm, Normal S1, Normal S2 Abdomen: Bowel Sounds Present, Soft, Non Tender, Non-Distended Extremities: No edema, No Calf Tenderness Microbiology Past 72 Hours 02/03/20 16:10 Blood Culture (Wb) - Right Hand Blood Culture - Preliminary No growth in 48 hours. 02/03/20 16:03 Blood Culture (Wb) - Anticubital Right Blood Culture - Preliminary No growth in 48 hours. Laboratory Results 02/05/20 12:00: POC Glucose 278 H 02/05/20 17:20: POC Glucose 255 H 02/05/20 21:56: POC Glucose 243 H 02/06/20 06:50: POC Glucose 237 H 02/06/20 11:32: POC Glucose 372 H Current Medications Acetaminophen (Acetaminophen 325 Mg Tablet) 650 mg PO Q6H PRN PRN PRN Reason: Pain Score 1-10/Temp > 100.7 F Last Admin: 02/03/20 22:26 Dose: 650 mg Documented by: Aspirin (Aspirin E.C. 81 Mg Tablet) 81 mg PO DAILY [facility] Last Admin: 02/06/20 09:03 Dose: 81 mg Documented by: Bupropion HCl (Bupropion (Sr) 100 Mg Tablet.Sa) 100 mg PO LUNCH [facility] Last Admin: 02/06/20 11:35 Dose: 100 mg Documented by: Bupropion HCl (Bupropion (Xl) 300 Mg Tablet.Xl) 300 mg PO DAILY [facility] Last Admin: 02/06/20 09:02 Dose: 300 mg Documented by: Cholecalciferol (Cholecalciferol (Vit D3) 1,000 Unit (25mcg)) 2,000 unit PO DAILY [facility] Last Admin: 02/06/20 09:02 Dose: 2,000 unit Documented by: Clopidogrel Bisulfate (Clopidogrel Bisulfate 75 Mg Tablet) 75 mg PO DAILY [facility] Last Admin: 02/06/20 09:03 Dose: 75 mg Documented by: Dexamethasone (Dexamethasone 4 Mg Tablet) 6 mg PO DAILY@0800 [facility] Last Admin: 10/29/20 09:03 Dose: 6 mg Documented by: Dextrose (Dextrose 50%-Water 25 Gm/50 Ml Disp.Syrin) 0 gm IV X1 PRN; Protocol PRN Reason: Hypoglycemia Donepezil HCl (Donepezil Hcl 10 Mg Tablet) 20 mg PO QHS [facility] Last Admin: 02/05/20 21:43 Dose: 20 mg Documented by: Duloxetine HCl (Duloxetine Hcl 30 Mg Capsule) 30 mg PO BID [facility] Last Admin: 02/06/20 09:03 Dose: 30 mg Documented by: Empagliflozin (Empagliflozin 25 Mg Tablet) 25 mg PO DAILY [facility] Last Admin: 02/06/20 09:05 Dose: 25 mg Documented by: Enoxaparin Sodium (Enoxaparin 30 Mg/0.3 Ml Syringe) 30 mg SC Q12 [facility] Last Admin: 02/06/20 09:03 Dose: 30 mg Documented by: Gabapentin (Gabapentin 100 Mg Capsule) 100 mg PO TID [facility] Last Admin: 02/06/20 06:51 Dose: 100 mg Documented by: Glucagon (Glucagon 1 Mg/Ml Syringe) 1 mg IM .X1 PRN PRN Reason: Hypoglycemia Sodium Chloride () 250 mls @ 15 mls/hr IV .[id number] PRN PRN Reason: Saline Flush Sodium Chloride () 250 mls @ 15 mls/hr IV .[id number] PRN PRN Reason: Additional IVPB Infusion Insulin Human Lispro (Insulin Lispro 100 Unit/Ml Insuln.Pen) 0 unit SC ACHS [facility]; Protocol Last Admin: 02/06/20 11:33 Dose: 6 u Documented by: Isosorbide Mononitrate (Isosorbide Mononitrate 120 Mg Tablet) 120 mg PO BID [facility] Last Admin: 02/06/20 09:03 Dose: 120 mg Documented by: Labetalol HCl (Labetalol (Prefilled) 20 Mg/4 Ml) 10 mg IV Q4H PRN PRN PRN Reason: SBP > 160; OR DBP > 120 Last Admin: 02/05/20 22:17 Dose: 10 mg Documented by: Metoprolol Tartrate (Metoprolol Tartrate 25 Mg Tablet) 12.5 mg PO QHS [facility] Last Admin: 02/05/20 21:43 Dose: 12.5 mg Documented by: Multivitamins (Multivitamins,Therapeutic Tablet) 1 tablet PO DAILY [facility] Last Admin: 02/06/20 09:03 Dose: 1 tablet Documented by: Nutritional Formula (Lactose Free) (Ensure Enlive 120 Ml Liquid) 120 ml PO TIDA C [facility] Last Admin: 02/06/20 11:42 Dose: Not Given Documented by: Ondansetron HCl (Ondansetron 4 Mg/2 Ml Vial) 4 mg IV Q8H PRN PRN PRN Reason: NAUSEA/VOMITING Quetiapine Fumarate (Quetiapine 25 Mg Tablet) 25 mg PO BID [facility] Last Admin: 02/06/20 09:03 Dose: 25 mg Documented by: Sodium Chloride (0.9% Saline Lock 10 Ml Syringe) 10 - 40 ml IV UD PRN PRN Reason: SALINE FLUSH Last Admin: 02/05/20 22:17 Dose: 30 ml Documented by: Discharge Diet: No Restrictions Home Medications: Medications to take at Discharge Aspirin [Aspirin EC] 81 mg PO DAILY 03/15/17 Bupropion HCl [Bupropion HCl ER] 100 mg PO LUNCH 03/15/17 Gabapentin [Neurontin] 300 mg PO TID 03/15/17 Multivitamin [Multiple Vitamins] 1 ea PO DAILY 03/15/17 buPROPion XL [Wellbutrin Xl] 300 mg PO DAILY 03/15/17 Quetiapine Fumarate [Seroquel] 25 mg PO BID 01/24/18 metoprolol tartrate 25 mg tablet 12.5 mg PO QHS tab 07/13/18 insulin aspar prot-insulin aspart 100 unit/mL (70-30) subcutaneous pen See Rx Instructions SUBCUT .ac ml 10/05/18 nitroglycerin 0.4 mg sublingual tablet 0.4 mg SUBLINGUAL Q5-15M PRN #25 tab 10/05/18 icosapent ethyl 1 gram capsule 2 g PO BID #120 cap 08/23/19 donepezil 10 mg tablet 20 mg PO QHS tab 09/09/19 duloxetine 30 mg capsule,delayed release sprinkle 30 mg PO BID cap 09/09/19 empagliflozin 25 mg tablet 25 mg PO DAILY 09/09/19 Cholecalciferol (Vitamin D3) [Vitamin D3] 2,000 unit PO DAILY 02/03/20 Clopidogrel Bisulfate [Plavix] 75 mg PO DAILY 02/03/20 Furosemide [Lasix] 20 mg PO DAILY 02/03/20 Isosorbide Mononitrate [Isosorbide Mononitrate ER] 120 mg PO BID 02/03/20 Lisinopril 20 mg PO BID 02/03/20 Rivaroxaban [Xarelto] 10 mg PO DAILY #14 tab 02/06/20 Following Prescriptions Were Given to Patient: Rivaroxaban [Xarelto] 10 mg PO DAILY #14 tab Transmission Status: Pending to [facility] Primary Care Physician: Juve Reed MD [Primary Care Provider] - Within 1 Week Disposition: Home Minutes spent on discharge:: 35 Patient Condition:: Good Medical Necessity - Tobacco Use Smoking Status: Never smoker Meaningful Use Info Meaningful Use Diagnoses (Choose all that apply): None applicable Inpatient E&M: [id number] [facility]
[2020-02-06 16:45] LABS: Bedside Glucose 272 mg/dL (70-110)
--- NOTE | 2020-02-07 16:24 | CASEMGMT ---
JULIO APONTE Discharge Follow-up Phone Call: FISHMaureen: Tyrese Strata: 3 Call Date: 02/07/20 Discharge Date: 02/06/20 Time of Call: 1625 Duration: 5 min Admitting Diagnosis: SARS COVID19 JULIO APONTE completed follow-up phone call after recent hospitalization. Patient's Tiffanie answered phone. State patient is sleeping and has been sleeping more and does not have an appetite. Encouraged to offer patient small meals. had no questions or concerns regarding discharge instructions. Family is isolating at home. Patient was able to fill prescriptions without any issues. Encourage to call PCP with any further questions or concerns. voiced understanding.
== END 2020-02-06 18:05 | disposition home or self-care (01) | DRG 177 ==
LOC: ED 18:23 → PCU 21:20
PROVIDERS: Internal Medicine Critical Care Medicine; Admitting Provider Hospitalist; Emergency Provider Emergency Medicine; PCP Family Medicine
DX: U07.1 COVID-19 (principal); J12.89 Other viral pneumonia; J96.01 Acute respiratory failure with hypoxia; I50.42 Chronic combined systolic (congestive) and diastolic (congestive) heart failure; N17.9 Acute kidney failure, unspecified; E86.0 Dehydration; F03.90 Unspecified dementia, unspecified severity, without behavioral disturbance, psychotic disturbance, mood disturbance, and anxiety; Z86.718 Personal history of other venous thrombosis and embolism; I11.0 Hypertensive heart disease with heart failure; I25.10 Atherosclerotic heart disease of native coronary artery without angina pectoris; E11.51 Type 2 diabetes mellitus with diabetic peripheral angiopathy without gangrene; E78.5 Hyperlipidemia, unspecified; Z95.1 Presence of aortocoronary bypass graft; I25.2 Old myocardial infarction; Z79.4 Long term (current) use of insulin; Z79.899 Other long term (current) drug therapy; Z79.02 Long term (current) use of antithrombotics/antiplatelets; E11.65 Type 2 diabetes mellitus with hyperglycemia; I16.0 Hypertensive urgency; G47.33 Obstructive sleep apnea (adult) (pediatric)
CPT/HCPCS: 36415; 70450; 71045; 80048; 80053; 81001; 82962; 83605; 84145; 84484; 85025; 85379; 87040; 87635; 93005; 97110; 97116; 97162; 97166; 97530; 97535; 97802; 99285; J7030; A4216; U0002

== ENCOUNTER → 2020-02-11 14:22 | Outpatient (CLI) | payer MEDICARE, MEDICAID, SELFPAY ==
[2018-03-15 12:56] VITALS: BMI 37.7
[2020-02-03 20:26] VITALS: BMI 36.7
--- NOTE | 2020-02-11 15:58 | CPS ---
Mr. Zhong arrived via wheelchair with Son-in-law for 6min walk test as requested by Pulmonary Medicine to assess for home oxygen need. His room air spo2 at rest was 82-83%, his lips were slightly dusky and he was sleepy. Applied oxygen at 2, 3, then 4LPM via nasal cannula (pt still at rest in w/c). At 4LPM, spo2 finally maintained between 89-90%. Patient pinked up and was more conversive. Due to patients weakness, I did not ambulate this gentleman at this time. I called PMW for direction. It was offered to the patient to go to ER however he declined since he was just DC'd last week and felt oxygen was what he needed. I made MARISA FILLING HAULER aware of patient's decision and requested oxygen order [place] [facility]. I contacted [facility] in [place] who brought an oxygen tank for the patient to go home on as well as will set up concentrator in pt's home. [facility] staff were made aware of patient's recent COVID+ status. I did education with both the patient and son-in-law participating on the importance of oxygen use and tank safety. I also provided them an adapter and tubing for the patient's autopap unit (through [employer]) for oxygen bleed in until further assessment/testing can be done. Both verbalize understanding. They were instructed to f/u with PCP for concerns of possibly needing home health as well as instructed to return to ER if they feel patient condition worsens.
== END ==
PROVIDERS: PCP Family Medicine; Referring Provider Internal Medicine Critical Care Medicine; Visit Provider Internal Medicine Critical Care Medicine
DX: U07.1 COVID-19 (principal)
CPT/HCPCS: 94618

== ENCOUNTER 2020-02-12 17:04 | Inpatient (IN) | payer MEDICARE, MEDICAID, SELFPAY ==
[2018-03-15 12:56] VITALS: BMI 37.7
[2020-02-03 20:26] VITALS: BMI 36.7
[2020-02-12] VITALS (10 sets, daily range): BP systolic 92–137; BP diastolic 57–74; PULSE 73–89; RESP 18–24; TEMP 37.1–38.8; O2SAT 92–96; BMI 35.0; BMI 34.2; BMI 34.3
--- NOTE | 2020-02-12 17:24 | EKG12_ITS ---
Test Reason : WEAKNESS Blood Pressure : / mmHG Vent. Rate : 088 BPM Atrial Rate : 088 BPM P-R Int : 144 ms QRS Dur : 102 ms QT Int : 430 ms P-R-T Axes : 056 012 043 degrees QTc Int : 520 ms Normal sinus rhythm Prolonged QT Abnormal ECG Confirmed by PATTI STODDARD, LANRE ([id number]), communications editor GARRET QUINN ([id number]) on 02/13/2020 12:07:48 PM Referred By: MARY Confirmed By:JACKSON ARMSTRONG MD
[2020-02-12 17:36] LABS: Absolute Lymphocyte Count 1.03 X10^3/uL (0.83-4.51); Absolute Neutrophil Count 6.3 X10^3/uL (2.0-7.7); Basophil# 0.01 X10^3/uL; Basophil% 0.1 % (0-1); Eosinophil# 0.15 X10^3/uL; Eosinophils% 1.9 % (0-5); Hematocrit 40.4 % (40-54); Hemoglobin 13.5 g/dL (13.0-16.5); Lymphocyte # 1.03 X10^3/ul (4.0); Lymphocyte % 13.3 % (19-41); Mean Corp Hgb Conc 33.4 g/dL (32-36); Mean Corpuscular Hgb 30.3 pg (27.0-32.0); Mean Corpuscular Volume 90.8 fL (80-94); Mean Platelet Vol. 13.1 fl (6.2-12.0); Monocyte# 0.22 X10^3/uL; Monocyte% 2.8 % (0-10); NRBC Flagged by Analyzer 0 % (0-5); Neutrophil # 6.26 X10^3/uL (2.7-7.7); Neutrophil % 81.3 % (47-70); Platelet Count 284 K/mm3 (150-450); RBC Distribution Width CV 12.8 % (11.6-14.6); RBC Distribution Width SD 42.3 fl (35.1-43.9); Red Blood Count 4.45 M/mm3 (4.6-6.2); White Blood Count 7.7 K/mm3 (4.4-11.0)
[2020-02-12 17:44] LABS: International Normalized Ratio 2.3; Prothrombin Time (Protime)PT. 24.7 SECONDS (11.7-14.9)
[2020-02-12 17:45] LABS: Partial Thromboplast Time 37.3 Seconds (24.1-36.2)
--- NOTE | 2020-02-12 17:45 | RAD_ITS ---
STUDY: X-RAY CHEST REASON FOR EXAM: Male, 69 years old. covid positive. weakness and shortness of breath worsened. TECHNIQUE: 1 view COMPARISON: Prior chest radiograph of 02/03/2020 FINDINGS: There are new multifocal infiltrates of the upper and lower lung zones bilaterally. Negative for substantial pleural effusion. Normal size heart. Status post prior midline sternotomy. Normal visualized pulmonary arteries. There is atherosclerotic calcification of the aortic arch with tortuosity. There are diffuse degenerative changes of the visualized thoracic spine. There is degenerative osteoarthritis of the bilateral shoulders. There is no demonstrated abnormality of the visualized soft tissue structures of the upper abdomen. RAD/Chest 1 View (Portable) IMPRESSION: New bilateral multifocal pulmonary infiltrates of the upper and lower lung zones consistent with a pneumonic process of viral, atypical or typical nature. Electronically Signed: Evelina Reinoso MD at 18:07 EST , Service support ,
[2020-02-12 17:47] LABS: ALB/GLOB Ratio 0.4 RATIO (0.9-2.4); AST(SGOT) 190 U/L (15-37); Alanine Aminotransfer ALT/SGPT 128 U/L (16-61); Albumin, Serum 2.4 g/dL (3.2-5.0); Alkaline Phosphatase 84 U/L (45-117); Anion Gap 11 (5-15); BUN 72 mg/dL (7-18); BUN/Creat Ratio 33.8 RATIO (10-20); Calcium,Total 9.3 mg/dL (8.5-10.1); Chloride 100 mmol/L (98-107); Creatinine, Serum 2.13 mg/dL (0.70-1.30); EST Glomerular Filtration Rate 33 mL/min (>60); Est Glom Filt Rate - Afr Amer 40 mL/min (>60); Estimated Creatinine Clearance 31.67 ml/min; Globulin 5.5 g/dL (2.2-4.2); Glucose 261 mg/dL (74-106); Potassium 4.2 mmol/L (3.5-5.1); Protein, Total 7.9 g/dL (6.4-8.2); Sodium Level 135 mmol/L (136-145)
--- NOTE | 2020-02-12 17:47 | ED.VIS.GEN ---
History of Present Illness Chief Complaint: Weakness Narrative: Patient is Covid positive. He was hospitalized and discharged last week, he presents today with increasing weakness mental status changes and essentially inability to even get out of bed. He has noted to have a fever. He has dementia at baseline and his mental status seems to be worsening. It is quite difficult to get any kind of history or review his systems from the patient he does deny any kind of pain. Past Medical History - Allergies and Home Meds Allergies/Adverse Reactions: Allergies hydrochlorothiazide Allergy (Verified 02/12/20 17:16) Unknown Penicillins [PCN] Allergy (Verified 02/12/20 17:16) Swelling pioglitazone [From Actos] Allergy (Verified 02/12/20 17:16) Unknown gemfibrozil Adverse Reaction (Severe, Verified 02/12/20 17:16) caused very high blood glucose oxycodone [From OxyIR] Adverse Reaction (Verified 02/12/20 17:16) Other pravastatin Adverse Reaction (Verified 02/12/20 17:16) Pain in joints Primary Care Physician: Juve Reed MD [Primary Care Provider] - Past Medical History: - - Past medical history reviewed, hypertension hypercholesterolemia, recent Covid Surgical History: coronary bypass surgery, total knee arthroplasty - L, - - coronary a. stent Smoking Status: Former smoker - Family History Maternal Family History: Family History (Last Reviewed 02/03/20 @ 23:[address] Louie Yang MD) Father Myocardial infarction ICD (implantable cardioverter-defibrillator) in place Brother Heart disease Family History: Reports: No pertinent history Review of Systems ROS: Unable to Obtain - Secondary to dementia and mental status changes Physical Exam Vital Signs/Narrative: Vital Signs Temp Pulse Resp BP Pulse Ox 02/12/20 17:36 93 02/12/20 17:05 101.8 F H 89 24 H 137/66 H 93 General: - - Patient appears chronically ill, he is pleasantly demented but does not appear in significant distress he is speaking in full sentences Head: Normocephalic, Atraumatic ENT: Dry mucous membranes Neck: Supple Cardiovascular: Regular rate, Regular rhythm Respiratory: - - Coarse bilateral breath sounds some diminished breath sounds scant wheezing present Abdomen: Soft, Nontender : - - Normal external genitalia Back: Nontender, Normal Inspection Extremities: Nontender, No edema Skin: Normal color, - - Evidence of cellulitis Neurological: Alert, - - Is oriented to person only he has no focal deficit Diagnostic/Tx/Re-eval - Rhythm Strip Rhythm Strip: Sinus Rhythm Rate: 88 Ectopy: None - EKG Initial EKG Interpretation: - - Sinus rhythm with a rate of 88. Normal CO interval. QTC is prolonged at 520. No obvious ischemic changes. Interpreted by emergency doctor - Medical Decision Making She was found to have new infiltrates these may be viral but I will treat with antibiotics since this may be a superinfection to his Covid. He is febrile he has acute renal insufficiency only to readmit him to the hospital ED Disposition - Plan for ED Patient: Disposition: Home or Assisted Living Diagnosis: COVID-19, Pneumonia Referrals: Juve Reed MD [Primary Care Provider] -
[2020-02-12 17:54] LABS: Lactic Acid 1.7 mmol/L (0.4-1.9)
[2020-02-12 18:17] LABS: Bacteria 0 SEEN /hpf (None Seen); Mucous, Urine 0 SEEN /hpf (<or=2+); Red Blood Cells-Urine 0 SEEN /hpf (0-5); Squamous Epithelial Cells - UA 0 SEEN /hpf (0-5); White Blood Cells 0 SEEN /hpf (0-5)
[2020-02-12 18:32] LABS: Color, Urine Yellow (Yellow); Glucose, Dipstick 1000 mg/dl (Normal); Ketone-Dipstick 15 mg/dl (Negative); Leukocyte Esterase-Dipstick Negative /ul (Negative); Nitrite-Dipstick Negative (Negative); Occult Blood-Urine Negative /ul (Negative); Protein-Dipstick Negative (Negative); Specific Gravity, Urine 1.015 (1.002-1.030); Urine Bilirubin Dipstick Negative (Negative); Urine Clarity Clear (Clear); Urine Urobilinogen Normal (Normal)
[2020-02-12 18:40] LABS: Amorphous Sediment 1+
--- NOTE | 2020-02-12 18:57 | PCM.HP.STD ---
Problem List (1) Acute and chronic respiratory failure with hypoxia Status: Acute (2) Debility Status: Acute (3) PATRICK (acute kidney injury) Status: Acute (4) Transaminitis Status: Acute (5) COVID-19 Status: Acute (6) Mild dehydration Status: Acute (7) Delirium Status: Inactive (8) Dementia Status: Chronic (9) Pneumonia Status: Acute (10) History of total left knee replacement Status: Resolved (11) S/P CABG x 3 Status: Resolved Comment: FLANNERY to LAD, SVG to LCX, SVG to PDA: info obtained from cath report, but don't have original surgical report or where performed. (12) Peripheral vascular disease Status: Chronic (13) BMI 38.0-38.9,adult Status: Chronic (14) JOSÉ MIGUEL (obstructive sleep apnea) Status: Chronic Comment: AHI 45.4 (15) History of left heart catheterization Status: Resolved Comment: Segmented LV systolic dysfunction- Moderate; LVEF: by LV gram 55 %; Double vessel CAD of the LAD, LCX; Widely patent FLANNERY To LAD; Occluded SVG to LCX system; Widely patent SVG to PDA. (16) Status post revision of total replacement of left knee Status: Chronic (17) HCAP (healthcare-associated pneumonia) Status: Inactive (18) Bradycardia Status: Inactive (19) History of DVT (deep vein thrombosis) Status: Chronic Comment: Patient was on Xarelto for this, is not presently (20) Nonrheumatic tricuspid (valve) insufficiency Status: Chronic Comment: Mild (1+) per echo 02/17/2018 (21) Secondary pulmonary hypertension Status: Chronic Comment: Mild, RVSP 45 mmhg per echo 02/17/2018 (22) Grade II diastolic dysfunction Status: Chronic Comment: Per echo 02/17/2018 (23) Systolic and diastolic CHF, acute Status: Chronic Comment: EF 45-50% per echo February 2018 (24) Stented coronary artery Status: Chronic Comment: JACI of proximal LCX w/3.0 X 38 Promus Syncergy (25) Atherosclerotic heart disease of [place] coronary artery without angina pectoris Status: Chronic Qualifiers: [place] vs. transplanted heart: [place] heart Qualified Code(s): I25.10 - Atherosclerotic heart disease of [place] coronary artery without angina pectoris Comment: JACI of proximal LCX w/3.0 X 38 Promus Syncergy (26) Non-STEMI (non-ST elevated myocardial infarction) Status: Inactive (27) HLD (hyperlipidemia) Status: Chronic Qualifiers: Hyperlipidemia type: unspecified Qualified Code(s): E78.5 - Hyperlipidemia, unspecified (28) HTN (hypertension) Status: Chronic Qualifiers: Hypertension type: essential hypertension Qualified Code(s): I10 - Essential (primary) hypertension (29) Acute blood loss anemia Status: Inactive (30) DM2 (diabetes mellitus, type 2) Status: Chronic History of Present Illness Date of Admission: 02/12/20 Mr Zhong is a 69 year old M with multiple medical comorbidities as listed below who was recently admitted form 02/02-02/05 with COVID PNA. He had suffered from sx for about a week and 1/2 prior to presentation and was therefore treated only with decadron was per ID recommendations was d/c prior to discharge. He was d/c on RA and continued on Xarelto for 14 days at that time. He represents today with new hypoxia, fever, and worsened confusion on baseline dementia. He has been unable to get OOB and PO intake has been poor. Per d/w the daughter they are not able to care for him at home in his current condition. Prior to d/c he was seen by therapy and did well with no further needs at home. Sats on admission were 93% on 4 L, he was tachypneic with a fever and Tmax of 101.8. BP was WNL. His CXR showed B multifocal infiltrates diffusely that are new when compared to his last CXR on 02/02. He had no white count but does have a L shift. He has PATRICK with a sCr of 2.13 and transaminitis with an AST of 190 and an ALT of 128. Lactate was WNL. EKG showed no ST-T wave changes indicative of acute ischemia. He was treated with abx in the ED and pancultured. Past Medical History Past Medical History (Chronic Problems): Chronic Problems (Last Reviewed 02/12/20 @ 19:[address] 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) History of DVT (deep vein thrombosis) (Chronic) Patient was on Xarelto for this, is not presently Nonrheumatic tricuspid (valve) insufficiency (Chronic) Mild (1+) per echo 02/17/2018 Secondary pulmonary hypertension (Chronic) Mild, RVSP 45 mmhg per echo 02/17/2018 Grade II diastolic dysfunction (Chronic) Per echo 02/17/2018 Systolic and diastolic CHF, 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% per echo February 2018 Stented coronary artery (Chronic 03/15/18) JACI of proximal LCX w/3.0 X 38 Promus Syncergy Atherosclerotic heart disease of [place] coronary artery without angina pectoris (Chronic 03/15/18) JACI of proximal LCX w/3.0 X 38 Promus Syncergy HLD (hyperlipidemia) (Chronic) HTN (hypertension) (Chronic) DM2 (diabetes mellitus, type 2) (Chronic) Medical History: Medical History (Last Reviewed 02/12/20 @ 19:[address] Tari Ray, DO) History of DVT (deep vein thrombosis) (Chronic) Z86.718 Patient was on Xarelto for this, is not presently Nonrheumatic tricuspid (valve) insufficiency (Chronic) I36.1 Mild (1+) per echo 02/17/2018 Secondary pulmonary hypertension (Chronic) Mild, RVSP 45 mmhg per echo 02/17/2018 Grade II diastolic dysfunction (Chronic) I51.9 Per echo 02/17/2018 Systolic and diastolic CHF, acute (Chronic) I50.41 EF 45-50% per echo February 2018 Atherosclerotic heart disease of [place] coronary artery without angina pectoris (Chronic) Onset Date: 03/15/18 I25.10 JACI of proximal LCX w/3.0 X 38 Promus Syncergy Non-STEMI (non-ST elevated myocardial infarction) (Chronic) Onset Date: 03/15/18 I21.4 HLD (hyperlipidemia) (Chronic) E78.5 HTN (hypertension) (Chronic) I10 Acute blood loss anemia (Inactive) D62 DM2 (diabetes mellitus, type 2) (Chronic) E11.9 Allergies hydrochlorothiazide Allergy (Verified 02/12/20 17:16) Unknown Penicillins [PCN] Allergy (Verified 02/12/20 17:16) Swelling pioglitazone [From Actos] Allergy (Verified 02/12/20 17:16) Unknown gemfibrozil Adverse Reaction (Severe, Verified 02/12/20 17:16) caused very high blood glucose oxycodone [From OxyIR] Adverse Reaction (Verified 02/12/20 17:16) Other pravastatin Adverse Reaction (Verified 02/12/20 17:16) Pain in joints Home Medications: Ambulatory Orders Medication Instructions Recorded Aspirin [Aspirin EC] 81 mg PO DAILY 03/15/17 Bupropion HCl [Bupropion HCl ER] 100 mg PO LUNCH 03/15/17 Gabapentin [Neurontin] 300 mg PO TID 03/15/17 Multivitamin [Multiple Vitamins] 1 ea PO DAILY 03/15/17 buPROPion XL [Wellbutrin Xl] 300 mg PO DAILY 03/15/17 Quetiapine Fumarate [Seroquel] 25 mg PO BID 01/24/18 metoprolol tartrate 25 mg tablet 12.5 mg PO QHS tab 07/13/18 insulin aspar prot-insulin aspart See Rx Instructions SUBCUT .ac ml 10/05/18 100 unit/mL (70-30) subcutaneous pen nitroglycerin 0.4 mg sublingual 0.4 mg SUBLINGUAL Q5-15M PRN #25 10/05/18 tablet tab icosapent ethyl 1 gram capsule 2 g PO BID #120 cap 08/23/19 donepezil 10 mg tablet 20 mg PO QHS tab 09/09/19 duloxetine 30 mg capsule,delayed 30 mg PO BID cap 09/09/19 release sprinkle empagliflozin 25 mg tablet 25 mg PO DAILY 09/09/19 Cholecalciferol (Vitamin D3) 2,000 unit PO DAILY 02/03/20 [Vitamin D3] Clopidogrel Bisulfate [Plavix] 75 mg PO DAILY 02/03/20 Furosemide [Lasix] 20 mg PO DAILY 02/03/20 Isosorbide Mononitrate [Isosorbide 120 mg PO BID 02/03/20 Mononitrate ER] Lisinopril 20 mg PO BID 02/03/20 Rivaroxaban [Xarelto] 10 mg PO DAILY #14 tab 02/06/20 Surgical History: Surgical History (Last Reviewed 02/12/20 @ 19:[address] Tari Ray DO) History of total left knee replacement (Resolved) Onset Date: 02/15/18 Z96.652 S/P CABG x 3 (Resolved) Onset Date: 03/10/15 Z95.1 FLANNERY to LAD, SVG to LCX, SVG to PDA: info obtained from cath report, but don't have original surgical report or where performed. History of left heart catheterization (Resolved) Onset Date: 11/07/18 Z98.890 Segmented LV systolic dysfunction- Moderate; LVEF: by LV gram 55 %; Double vessel CAD of the LAD, LCX; Widely patent FLANNERY To LAD; Occluded SVG to LCX system; Widely patent SVG to PDA. Stented coronary artery (Chronic) Onset Date: 03/15/18 Z95.5 JACI of proximal LCX w/3.0 X 38 Promus Syncergy Surgical History: coronary bypass surgery, total knee arthroplasty - L, - - coronary a. stent Psychiatric History: No pertinent psych hx Lives: With Family Smoking Status: Former smoker Alcohol: None Drugs: None - *Family History Maternal Family History: Family History (Last Reviewed 02/12/20 @ 19:[address] Tari Ray DO) Father Myocardial infarction ICD (implantable cardioverter-defibrillator) in place Brother Heart disease History Items: No pertinent history Review of Systems Unable to obtain accurate/complete ROS d/t: 2/2 pt with sig dementia VTE Information - Inpt Only VTE Present on Admission: No VTE Mechan Device Prophylaxis: None VTE Pharm Prophylaxis ordered?: Yes Patient Problems: Active and Suspected Problems (Last Reviewed 02/12/20 @ 19:[address] Tari Ray DO) COVID-19 (Acute) Mild dehydration (Acute) Pneumonia (Acute) Acute and chronic respiratory failure with hypoxia (Acute) Debility (Acute) PATRICK (acute kidney injury) (Acute) Transaminitis (Acute) - Physical Exam Vitals/I&O's: Vital Signs Temp Pulse Resp BP Pulse Ox 101 F H 80 24 H 118/68 96 02/12/20 18:47 02/12/20 18:47 02/12/20 18:47 02/12/20 18:47 02/12/20 18:47 Oxygen Flow Rate (L/min) 4 Oxygen Delivery Method Nasal Cannula Weight: 104.6 kg Body Mass Index (BMI) 35.0 Finger Stick Blood Glucose 272 Intake and Output for Last 24 Hours 02/10/20 02/11/20 02/12/20 23:59 23:59 23:59 Intake Total 100 / 100 Balance 100 / 100 General: Alert, Cooperative, No apparent distress, Well developed, Well nourished, Confused, - - Older WM lying in bed with mask in place, nontoxic, unable to give me any history HEENT: Atraumatic, PERRLA, EOMI, Normocephalic, EAC Clear Oral: No Gingival or Mucosal Lesions/ Ulcerations, Dry Mucosa, - - Mallampati 3, no thrush Neck: Supple, No JVD, Negative Carotid Bruits, Negative Hepatojugular Reflux, No Nodes, Trachea Midline, Thyroid Normal Size and Texture Lungs: Rhonchi, Wheezes - few scattered Cardiovascular: Regular rate, Regular Rhythm, Normal S1, Normal S2, No murmurs, No Ectopic Activity, No rub noted, No Gallop Abdomen: Bowel Sounds Present, Soft, Non Tender, Non-Distended, No Hepato-splenomegaly, Obese, No hernias noted Extremities: No clubbing, No cyanosis, Edema - trace B LE Skin: No rashes, No breakdown, - - pale Musculoskeletal: No Tenderness to Palpation of Joints or Extremities, No Muscle Wasting, Arthritic Changes Lymphatic: No Cervical, Supraclavicular, or Inguinal Adenopathy Neurological: Cranial nerves II-XII grossly intact, Deep Tendon Reflexes 2+/4 and Symmetrical, Motor Exam 5/5 strength throughout, Muscle tone normal, Coordination normal Psych/Mental Status: Flat Affect, - - confused Laboratory Results 02/12/20 17:15: WBC 7.7, RBC 4.45 L, Hgb 13.5, Hct 40.4, MCV 90.8, MCH 30.3, MCHC 33.4, RDW Std Deviation 42.3, RDW Coeff of Smooth 12.8, Plt Count 284, MPV 13.1 H, Immature Gran % (Auto) 0.600, Neut % (Auto) 81.3 H, Lymph % (Auto) 13.3 L, Martin % (Auto) 2.8, Eos % (Auto) 1.9, Baso % (Auto) 0.1, Absolute Neuts (auto) 6.3, Absolute Lymphs (auto) 1.03, Nucleated RBC % 0 02/12/20 17:15: PT 24.7 H, INR 2.3, APTT 37.3 H 02/12/20 17:15: Sodium 135 L, Potassium 4.2, Chloride 100, Carbon Dioxide 24.0, Anion Gap 11, BUN 72 H, Creatinine 2.13 H, Estim Creat Clear Calc 31.67, Est GFR (MDRD) Af Amer 40 L, Est GFR (MDRD) Non-Af 33 L, BUN/Creatinine Ratio 33.8 H, Glucose 261 H, Calcium 9.3, Total Bilirubin 0.80, AST 190 H, ALT 128 H, Alkaline Phosphatase 84, Total Protein 7.9, Albumin 2.4 L, Globulin 5.5 H, Albumin/Globulin Ratio 0.4 L 02/12/20 17:15: Lactic Acid 1.7 02/12/20 18:15: Urine Color Yellow, Urine Clarity Clear, Urine pH 5.0, Ur Specific [place] 1.015, Urine Protein Negative, Urine Glucose (UA) 1000 H, Urine Ketones 15 H, Urine Occult Blood Negative, Urine Nitrite Negative, Urine Bilirubin Negative, Urine Urobilinogen Normal, Ur Leukocyte Esterase Negative, Urine RBC 0 SEEN, Urine WBC 0 SEEN, Ur Squamous Epith Cells 0 SEEN, Amorphous Sediment 1+, Urine Bacteria 0 SEEN, Urine Mucus 0 SEEN Current Medications Vancomycin HCl 1,500 mg/ (Sodium Chloride) 530 mls @ 250 mls/hr IV X1 ONE Stop: 02/12/20 19:37 Last Admin: 02/12/20 18:46 Dose: 250 mls/hr Documented by: Assessment/Plan All Active Problems (Last Reviewed 02/12/20 @ 19:[address] Tari Ray, DO) COVID-19 (Acute) Mild dehydration (Acute) Pneumonia (Acute) Acute and chronic respiratory failure with hypoxia (Acute) Debility (Acute) PATRICK (acute kidney injury) (Acute) Transaminitis (Acute) History of total left knee replacement (Resolved 02/15/18) S/P CABG x 3 (Resolved 03/10/15) History of left heart catheterization (Resolved 11/07/18) Abdominal discomfort (Resolved) Chest pain (Resolved) Hypertensive urgency (Resolved) Sepsis 2/2 COVID 19 with ? superimposed HAP -COVID + on 02/02 and was treated with decadron only as family had reported sx for 2 weeks at the admission -start Vanc and Cefepime with PCN allergy of edema -supplemental O2 (was on 3 L at d/c and now on 4) -Check Viral PCR/Flu -check urine antigens -sputum if possible -Blood and urine cx pending -will have [employer] evaluate with fatigue to assess for aspiration -consult ID PATRICK on CKD Stage 2 -baseline sCr is about 1.5-1.25 -2.13 today -appears dry -start IVF of LR at 75 cc/hr -repeat in am and if no better or worsening renal fxn -avoid nephrotoxins -hold gabapentin/Lasix/ACEI Transaminitis -suspect related for COVID -will trend Debility -PT/OT -will likely need placed at d/c as family has indicated that he is too difficult for them to take care of at this time DM-2 -SSI with ACHS BGT -Lantus 10 u at hs -hold orals HTN/HPL -continue Metoprolol -hold ACEI and Isosorbide -hold lasix -pt with statin allergy CAD with h/o CABG and PCI -hold asa while on Xarelto and plavix and restart if able to come off DOAC -continue BB -hold ACEI H/O DVT -Xarelto with COVID-19 recently -had been stopped prior to last admission PAH WHO Group 3-4 -hold lasix and monitor HFrEF compensated -pt currently dry -hold diuresis--> IVF -monitor -cont BB, hold ACEI JOSÉ MIGUEL -BIPAP 03/17 at HS with 4 L bleed DVT Prophylaxis -Xarelto Code Status -Called and unable to reach her, called daughter and she would like to talk to her mother about this. They plan to call the floor with an answer but she does confirm for me that they are unable to take care of him at home Inpatient E&M: [id number] Init Hosp L3
--- NOTE | 2020-02-12 21:01 | PCM.RX.CS ---
Consult Pharmacy has been consulted to manage selected antiobiotic: Vancomycin Type of Consult: New start Suspected Infection: Pneumonia Labs: Sodium 135 mmol/L (136-145) L 02/12/20 17:15 Potassium 4.2 mmol/L (3.5-5.1) 02/12/20 17:15 Chloride 100 mmol/L (98-107) 02/12/20 17:15 Carbon Dioxide 24.0 mmol/L (21.0-32.0) 02/12/20 17:15 Anion Gap 11 (5-15) 02/12/20 17:15 BUN 72 mg/dL (7-18) H 02/12/20 17:15 Creatinine 2.13 mg/dL (0.70-1.30) H 02/12/20 17:15 Est GFR (MDRD) Af Amer 40 mL/min (>60) L 02/12/20 17:15 Est GFR (MDRD) Non-Af 33 mL/min (>60) L 02/12/20 17:15 BUN/Creatinine Ratio 33.8 RATIO (10-20) H 02/12/20 17:15 Glucose 261 mg/dL (74-106) H 02/12/20 17:15 Goal Trough: 15-20 mcg/mL Pharmacy Plan for Drug Dosing: NEW START IV VANCOMYCIN Consulting Physician: DR. Ladi KERR Indication: PNEUMONIA Goal Trough: 15-20 SrCr: 2.13 CrCl: 38ML/MIN USING ADJ BW OF 82KG Comments: ED DOSE OF 1500MG GIVEN 02/11 @ 1846 Vancomycin Dose: 1500MG Q24H STARTING 02/12 @ 1900 Trough prior to 3rd dose per policy Pharmacy Service will continue to monitor and adjust dosing as required. Labs to be done on [date and time ordered]: 02/13 @ 1830
[2020-02-12] MEDS: Lactated Ringers 1,000 ML 75 ML IV (22:02)
[2020-02-12] MEDS: QUEtiapine 25 MG Tablet PO (22:04)
[2020-02-12] MEDS: DULoxetine Hcl 30 MG Capsule PO (22:04)
[2020-02-12] MEDS: Metoprolol Tartrate 25 MG Tablet 12.5 MG PO (22:05)
[2020-02-12] MEDS: Insulin Lispro 100 UNIT/ML INSULN.PEN SC (22:07)
[2020-02-12] MEDS: Donepezil HCl 10 MG Tablet PO (22:15)
[2020-02-12] MEDS: Gabapentin 300 MG Capsule PO (22:27)
[2020-02-12 23:08] LABS: M R Staph aureus DNA By PCR Negative (Negative); Probe Check PASS; Specimen Processing Control PASS
[2020-02-12 23:26] LABS: Bedside Glucose 224 mg/dL (70-110)
[2020-02-13] VITALS (11 sets, daily range): BP systolic 127–158; BP diastolic 69–81; PULSE 63–75; RESP 18–20; TEMP 36.6–37.5; O2SAT 92–96; BMI 34.2
[2020-02-13] MEDS: Insulin Lispro 100 UNIT/ML INSULN.PEN SC ×3 (06:44→23:38)
[2020-02-13] MEDS: Gabapentin 300 MG Capsule PO ×2 (06:44→23:39)
[2020-02-13 07:10] LABS: Bedside Glucose 172 mg/dL (70-110)
[2020-02-13 07:42] LABS: D-Dimer Quantitative (DVT/PE) 1.13 FEU/ug/m (0.27-0.49)
[2020-02-13 08:08] LABS: ALB/GLOB Ratio 0.7 RATIO (0.9-2.4); AST(SGOT) 150 U/L (15-37); Alanine Aminotransfer ALT/SGPT 123 U/L (16-61); Albumin, Serum 3.4 g/dL (3.2-5.0); Alkaline Phosphatase 92 U/L (45-117); Anion Gap 9 (5-15); BUN 67 mg/dL (7-18); BUN/Creat Ratio 41.1 RATIO (10-20); Calcium,Total 9.6 mg/dL (8.5-10.1); Chloride 107 mmol/L (98-107); Creatinine, Serum 1.63 mg/dL (0.70-1.30); EST Glomerular Filtration Rate 45 mL/min (>60); Est Glom Filt Rate - Afr Amer 54 mL/min (>60); Estimated Creatinine Clearance 41.38 ml/min; Ferritin 1689 ng/mL (26-388); Globulin 4.6 g/dL (2.2-4.2); Glucose 153 mg/dL (74-106); Magnesium 2.8 mg/dL (1.6-2.6); Phosphorus 4.3 mg/dL (2.5-4.9); Potassium 4.7 mmol/L (3.5-5.1); Sodium Level 137 mmol/L (136-145)
[2020-02-13 08:33] LABS: Absolute Neutrophil Count 7.2 X10^3/uL (2.0-7.7); Basophil# 0.03 X10^3/uL; Basophil% 0.4 % (0-1); Eosinophil# 0.19 X10^3/uL; Eosinophils% 2.2 % (0-5); Hematocrit 42.4 % (40-54); Hemoglobin 13.2 g/dL (13.0-16.5); Lymphocyte % 10.5 % (19-41); Mean Corp Hgb Conc 31.1 g/dL (32-36); Mean Corpuscular Volume 96.4 fL (80-94); Mean Platelet Vol. 12.9 fl (6.2-12.0); Monocyte# 0.24 X10^3/uL; Monocyte% 2.8 % (0-10); NRBC Flagged by Analyzer 0 % (0-5); Neutrophil # 7.16 X10^3/uL (2.7-7.7); Neutrophil % 83.7 % (47-70); Platelet Count 270 K/mm3 (150-450); RBC Distribution Width CV 13.2 % (11.6-14.6); RBC Distribution Width SD 47.1 fl (35.1-43.9); White Blood Count 8.6 K/mm3 (4.4-11.0)
[2020-02-13] MEDS: 0.9% Saline Lock 10 ML Syringe IV (08:35)
[2020-02-13] MEDS: Glucerna Shake 120 ML LIQUID PO (08:35)
[2020-02-13] MEDS: DULoxetine Hcl 30 MG Capsule PO ×2 (08:36→23:37)
[2020-02-13] MEDS: Rivaroxaban 10 MG Tablet PO (08:36)
[2020-02-13] MEDS: Donepezil HCl 10 MG Tablet PO ×2 (08:36→23:37)
[2020-02-13] MEDS: Clopidogrel Bisulfate 75 MG Tablet PO (08:36)
[2020-02-13] MEDS: Multivitamins,Therapeutic Tablet 1 TABLET PO (08:36)
[2020-02-13] MEDS: buPROPion (XL) 300 MG TABLET.XL PO (08:36)
[2020-02-13] MEDS: Aspirin E.C. 81 MG Tablet PO (08:36)
[2020-02-13] MEDS: QUEtiapine 25 MG Tablet PO ×2 (08:37→23:39)
--- NOTE | 2020-02-13 09:32 | PN_ITS ---
Patient Problems: Active and Suspected Problems (Last Reviewed 02/12/20 @ 19:[address] Tari Ray, DO) COVID-19 (Acute) Mild dehydration (Acute) Pneumonia (Acute) Acute and chronic respiratory failure with hypoxia (Acute) Debility (Acute) PATRICK (acute kidney injury) (Acute) Transaminitis (Acute) Subjective: Patient was seen and examined today, he appears comfortable on nasal cannula oxygen, he was admitted yesterday due to worsening shortness of breath and confusion and inability to take care of himself. Patient has a baseline dementia according to the medical record. Patient states that he wants to go home today I want to return to work, I asked him what kind of work he does, he says he is retired. Patient is currently on 3 L/min via nasal cannula. - Physical Exam Vitals/I&O's: Vital Signs Temp Pulse Resp BP Pulse Ox 99.5 F H 68 20 H 134/69 H 93 02/13/20 08:41 02/13/20 08:41 02/13/20 08:41 02/13/20 08:41 02/13/20 08:47 Oxygen Flow Rate (L/min) 3 Oxygen Delivery Method Nasal Cannula Weight: 102.3 kg Body Mass Index (BMI) 34.2 Finger Stick Blood Glucose 272 Intake and Output for Last 24 Hours 02/11/20 02/12/20 02/13/20 23:59 23:59 23:59 Intake Total 730 / 730 1191.25 / 1191.25 Output Total 600 / 600 Balance 730 / 730 591.25 / 591.25 General: Alert, Cooperative, No apparent distress, Well developed, Well nourished HEENT: Atraumatic, PERRLA, EOMI, Normocephalic Oral: Moist Mucosa Neck: Supple, No JVD, Thyroid Normal Size and Texture Lungs: Clear to auscultation, Normal air movement, No rhonchi, No wheeze, No rales Cardiovascular: Regular rate, No murmurs Abdomen: Bowel Sounds Present, Soft, Non Tender, Non-Distended Extremities: No clubbing, No cyanosis, No edema, Capillary Refill Less than 3 Seconds Skin: No rashes, No breakdown Musculoskeletal: No Tenderness to Palpation of Joints or Extremities Neurological: Cranial nerves II-XII grossly intact, Neuro grossly intact, Sensory exam intact to light touch and pain, Coordination normal Psych/Mental Status: - - Patient is alert with mild confusion Microbiology Past 72 Hours 02/13/20 06:55 Urine Catheter - Catheter Legionella Antigen - Final 02/13/20 06:55 Urine Catheter - Catheter Streptococcus pneumoniae Antigen (M - Final 02/12/20 22:25 Mucosa - Nasopharyngeal Respiratory Panel (PCR) - Final Laboratory Results 02/12/20 17:15: WBC 7.7, RBC 4.45 L, Hgb 13.5, Hct 40.4, MCV 90.8, MCH 30.3, MCHC 33.4, RDW Std Deviation 42.3, RDW Coeff of Smooth 12.8, Plt Count 284, MPV 13.1 H, Immature Gran % (Auto) 0.600, Neut % (Auto) 81.3 H, Lymph % (Auto) 13.3 L, Mclennan % (Auto) 2.8, Eos % (Auto) 1.9, Baso % (Auto) 0.1, Absolute Neuts (auto) 6.3, Absolute Lymphs (auto) 1.03, Nucleated RBC % 0 02/12/20 17:15: PT 24.7 H, INR 2.3, APTT 37.3 H 02/12/20 17:15: Sodium 135 L, Potassium 4.2, Chloride 100, Carbon Dioxide 24.0, Anion Gap 11, BUN 72 H, Creatinine 2.13 H, Estim Creat Clear Calc 31.67, Est GFR (MDRD) Af Amer 40 L, Est GFR (MDRD) Non-Af 33 L, BUN/Creatinine Ratio 33.8 H, Glucose 261 H, Calcium 9.3, Total Bilirubin 0.80, AST 190 H, ALT 128 H, Alkaline Phosphatase 84, Total Protein 7.9, Albumin 2.4 L, Globulin 5.5 H, Albumin/Globulin Ratio 0.4 L 02/12/20 17:15: Lactic Acid 1.7 02/12/20 17:15: D-Dimer Quant (PE/DVT) 1.50 H* 02/12/20 17:15: B-Natriuretic Peptide Pending 02/12/20 17:15: Troponin I < 0.015 02/12/20 17:15: Procalcitonin Pending 02/12/20 18:15: Urine Color Yellow, Urine Clarity Clear, Urine pH 5.0, Ur Specific [place] 1.015, Urine Protein Negative, Urine Glucose (UA) 1000 H, Urine Ketones 15 H, Urine Occult Blood Negative, Urine Nitrite Negative, Urine Bilirubin Negative, Urine Urobilinogen Normal, Ur Leukocyte Esterase Negative, Urine RBC 0 SEEN, Urine WBC 0 SEEN, Ur Squamous Epith Cells 0 SEEN, Amorphous Sediment 1+, Urine Bacteria 0 SEEN, Urine Mucus 0 SEEN 02/12/20 21:30: MRSA (PCR) Negative 02/12/20 21:57: POC Glucose 224 H 02/13/20 06:42: POC Glucose 172 H 02/13/20 07:00: WBC Cancelled, Corrected WBC Cancelled, RBC Cancelled, Hgb Cancelled, Hct Cancelled, MCV Cancelled, MCH Cancelled, MCHC Cancelled, RDW Std Deviation Cancelled, RDW Coeff of Smooth Cancelled, Plt Count Cancelled, MPV Cancelled, Immature Gran % (Auto) Cancelled, Neut % (Auto) Cancelled, Lymph % (Auto) Cancelled, Mclennan % (Auto) Cancelled, Eos % (Auto) Cancelled, Baso % (Auto) Cancelled, Absolute Neuts (auto) Cancelled, Absolute Lymphs (auto) Cancelled, Total Counted Cancelled, Neutrophils % (Manual) Cancelled, Band Neutrophils % Cancelled, Lymphocytes % (Manual) Cancelled, Monocytes % (Manual) Cancelled, Eosinophils % (Manual) Cancelled, Basophils % (Manual) Cancelled, Metamyelocytes % Cancelled, Myelocytes % Cancelled, Promyelocytes % Cancelled, Blast Cells % Cancelled, Plasma Cell % (Manual) Cancelled, Other Cells % Cancelled, Nucleated RBC % Cancelled, Nucleated RBCs/100 WBC Cancelled, Differential Comment Cancelled, Diff Path Review Cancelled, Hypersegmented Neuts Cancelled, Atypical Lymphocytes Cancelled, Reactive Lymphocytes Cancelled, Smudge Cells Cancelled, Toxic Granulation Cancelled, Toxic Vacuolation Cancelled, Dohle Bodies Cancelled, Koby Rods Cancelled, Platelet Estimate Cancelled, Plt Morphology Comment Cancelled, RBC Morphology Cancelled, Polychromasia Cancelled, Hypochromasia Cancelled, Poikilocytosis Cancelled, Basophilic Stippling Cancelled, Anisocytosis Cancelled, Microcytosis Cancelled, Macrocytosis Cancelled, Spherocytes Cancelled, Sickle Cells Cancelled, Target Cells Cancel led, Tear Drop Cells Cancelled, Ovalocytes Cancelled, Stomatocytes Cancelled, Bowen-[place] Bodies Cancelled, Harshil Cells Cancelled, Bite Cells Cancelled, Crenated Cell Cancelled, Acanthocytes (Spur) Cancelled, Rouleaux Cancelled, Schistocytes Cancelled 02/13/20 07:00: Sodium 137, Potassium 4.7, Chloride 107, Carbon Dioxide 21.0, Anion Gap 9, BUN 67 H, Creatinine 1.63 H, Estim Creat Clear Calc 41.38, Est GFR (MDRD) Af Amer 54 L, Est GFR (MDRD) Non-Af 45 L, BUN/Creatinine Ratio 41.1 H, Glucose 153 H, Calcium 9.6, Phosphorus 4.3, Magnesium 2.8 H, Ferritin 1689 H, Total Bilirubin 0.90, AST 150 H, ALT 123 H, Alkaline Phosphatase 92, Troponin I < 0.015, C-React Prot Ext Range 337.00 H, Total Protein 8.0, Albumin 3.4, Globulin 4.6 H, Albumin/Globulin Ratio 0.7 L 02/13/20 07:00: D-Dimer Quant (PE/DVT) 1.13 H* 02/13/20 07:00: Procalcitonin Pending 02/13/20 08:22: WBC 8.6, RBC 4.40 L, Hgb 13.2, Hct 42.4, MCV 96.4 H D, MCH 30.0, MCHC 31.1 L D, RDW Std Deviation 47.1 H, RDW Coeff of Smooth 13.2, Plt Count 270, MPV 12.9 H, Immature Gran % (Auto) 0.400, Neut % (Auto) 83.7 H, Lymph % (Auto) 10.5 L, Mclennan % (Auto) 2.8, Eos % (Auto) 2.2, Baso % (Auto) 0.4, Absolute Neuts (auto) 7.2, Absolute Lymphs (auto) 0.90, Nucleated RBC % 0 Current Medications Acetaminophen (Acetaminophen 325 Mg Tablet) 650 mg PO Q6H PRN PRN PRN Reason: Pain Score 1-10/Temp > 100.7 F Albuterol Sulfate (Albuterol Sulfate Hfa 6.7 Gm Inhaler (200 Puffs)) 2 puff IH Q4H PRN PRN PRN Reason: Shortness of Breath/Wheezing Aspirin (Aspirin E.C. 81 Mg Tablet) 81 mg PO DAILY [facility] Last Admin: 02/13/20 08:36 Dose: 81 mg Documented by: Bupropion HCl (Bupropion (Xl) 300 Mg Tablet.Xl) 300 mg PO DAILY [facility] Last Admin: 02/13/20 08:48 Dose: Not Given Documented by: Bupropion HCl (Bupropion (Sr) 100 Mg Tablet.Sa) 100 mg PO LUNCH [facility] Cholecalciferol (Cholecalciferol (Vit D3) 1,000 Unit (25mcg)) 2,000 unit PO DAILY [facility] Last Admin: 02/13/20 08:36 Dose: 2,000 unit Documented by: Clopidogrel Bisulfate (Clopidogrel Bisulfate 75 Mg Tablet) 75 mg PO DAILY [facility] Last Admin: 02/13/20 08:36 Dose: 75 mg Documented by: Donepezil HCl (Donepezil Hcl 10 Mg Tablet) 10 mg PO BID [facility] Last Admin: 02/13/20 08:36 Dose: 10 mg Documented by: Duloxetine HCl (Duloxetine Hcl 30 Mg Capsule) 30 mg PO BID [facility] Last Admin: 02/13/20 08:36 Dose: 30 mg Documented by: Gabapentin (Gabapentin 300 Mg Capsule) 300 mg PO TID [facility] Last Admin: 02/13/20 06:44 Dose: 300 mg Documented by: Sodium Chloride () 250 mls @ 15 mls/hr IV .[id number] PRN PRN Reason: Saline Flush Lactated Ringer's () 1,000 mls @ 75 mls/hr IV .[id number] [facility] Last Infusion: 02/13/20 09:15 Dose: 75 mls/hr Documented by: Cefepime HCl 2 gm/ Sodium (Chloride) 100 mls @ 200 mls/hr IV Q24 [facility] Last Infusion: 02/13/20 09:15 Dose: Infused Documented by: Insulin Glargine (Insulin Glargine 100 Units/Ml Pen) 10 units SC QHS [facility] Last Admin: 02/12/20 22:06 Dose: 10 units Documented by: Insulin Human Lispro (Insulin Lispro 100 Unit/Ml Insuln.Pen) 0 unit SC ACHS [facility]; Protocol Last Admin: 02/13/20 06:44 Dose: 1 u Documented by: Metoprolol Tartrate (Metoprolol Tartrate 25 Mg Tablet) 12.5 mg PO QHS [facility] Last Admin: 02/12/20 22:05 Dose: 12.5 mg Documented by: Multivitamins (Multivitamins,Therapeutic Tablet) 1 tablet PO DAILY [facility] Last Admin: 02/13/20 08:36 Dose: 1 tablet Documented by: Ondansetron HCl (Ondansetron 4 Mg/2 Ml Vial) 4 mg IV Q8H PRN PRN PRN Reason: NAUSEA/VOMITING Quetiapine Fumarate (Quetiapine 25 Mg Tablet) 25 mg PO BID [facility] Last Admin: 02/13/20 08:37 Dose: 25 mg Documented by: Rivaroxaban (Rivaroxaban 10 Mg Tablet) 10 mg PO DAILY [facility] Last Admin: 02/13/20 08:36 Dose: 10 mg Documented by: Sodium Chloride (0.9% Saline Lock 10 Ml Syringe) 10 - 40 ml IV UD PRN PRN Reason: SALINE FLUSH Last Admin: 02/13/20 08:35 Dose: 10 ml Documented by: Medical Necessity - Tobacco Use Smoking Status: Never smoker Assessment/Plan All Active Problems (Last Reviewed 02/12/20 @ 19:[address] 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 #3 dementia-this creates a problem managing the patient, the patient will need temporary placement in a fpc facility if the family is not able to take care of him #4 Essential hypertension #5 chronic kidney disease stage III secondary to type 2 diabetes #6 generalized debility secondary to recent COVID-19 infection and underlying dementia-PT and OT will work with patient #7 possible hospital-acquired pneumonia-patient is on cefepime at this time, ID is going to be seeing the patient Inpatient E&M: [id number] Subs Hosp L2
[2020-02-13] MEDS: buPROPion (SR) 100 MG TABLET.SA PO (11:37)
[2020-02-13] MEDS: Lactated Ringers 1,000 ML 75 ML IV ×2 (11:38→23:39)
[2020-02-13 12:06] LABS: Bedside Glucose 161 mg/dL (70-110)
--- NOTE | 2020-02-13 12:08 | CON.PCM_ITS ---
Problem List (1) COVID-19 Status: Acute Reason for Consult: fever Consulted by: Dr. Maldonado History of Present Illness: The patient is a 69 year old M admitted 02/02 with covid, had sx beginning about 2 weeks prior to that. Admitted at that time, given steroids, sent home off of dex, was not hypoxic. Did leave with 2 weeks of xarelto. Now back with fever, cough, dyspnea, confusion. No sputum. Wbc normal. UAgs neg. Full ROS performed and neg except as noted above. - Medical History Past Medical History (Chronic Problems): Chronic Problems (Last Reviewed 02/12/20 @ 19:[address] 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) History of DVT (deep vein thrombosis) (Chronic) Patient was on Xarelto for this, is not presently Nonrheumatic tricuspid (valve) insufficiency (Chronic) Mild (1+) per echo 02/17/2018 Secondary pulmonary hypertension (Chronic) Mild, RVSP 45 mmhg per echo 02/17/2018 Grade II diastolic dysfunction (Chronic) Per echo 02/17/2018 Systolic and diastolic CHF, 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% per echo February 2018 Stented coronary artery (Chronic 03/15/18) JACI of proximal LCX w/3.0 X 38 Promus Syncergy 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) JACI of proximal LCX w/3.0 X 38 Promus Syncergy HLD (hyperlipidemia) (Chronic) HTN (hypertension) (Chronic) DM2 (diabetes mellitus, type 2) (Chronic) Allergies/Adverse Reactions: Allergies hydrochlorothiazide Allergy (Verified 02/12/20 17:16) Unknown Penicillins [PCN] Allergy (Verified 02/12/20 17:16) Swelling pioglitazone [From Actos] Allergy (Verified 02/12/20 17:16) Unknown gemfibrozil Adverse Reaction (Severe, Verified 02/12/20 17:16) caused very high blood glucose oxycodone [From OxyIR] Adverse Reaction (Verified 02/12/20 17:16) Other pravastatin Adverse Reaction (Verified 02/12/20 17:16) Pain in joints Home Medications: Ambulatory Orders Medication Instructions Recorded Aspirin [Aspirin EC] 81 mg PO DAILY 03/15/17 Bupropion HCl [Bupropion HCl ER] 100 mg PO LUNCH 03/15/17 Gabapentin [Neurontin] 300 mg PO TID 03/15/17 Multivitamin [Multiple Vitamins] 1 ea PO DAILY 03/15/17 buPROPion XL [Wellbutrin Xl] 300 mg PO 0800 03/15/17 Quetiapine Fumarate [Seroquel] 25 mg PO BID 01/24/18 metoprolol tartrate 25 mg tablet 12.5 mg PO QHS tab 07/13/18 insulin aspar prot-insulin aspart See Rx Instructions SUBCUT .ac ml 10/05/18 100 unit/mL (70-30) subcutaneous pen nitroglycerin 0.4 mg sublingual 0.4 mg SUBLINGUAL Q5-15M PRN #25 10/05/18 tablet tab icosapent ethyl 1 gram capsule 2 g PO BID #120 cap 08/23/19 donepezil 10 mg tablet 10 mg PO BID tab 09/09/19 duloxetine 30 mg capsule,delayed 30 mg PO BID cap 09/09/19 release sprinkle empagliflozin 25 mg tablet 25 mg PO DAILY 09/09/19 Cholecalciferol (Vitamin D3) 2,000 unit PO DAILY 02/03/20 [Vitamin D3] Clopidogrel Bisulfate [Plavix] 75 mg PO DAILY 02/03/20 Furosemide [Lasix] 20 mg PO DAILY 02/03/20 Isosorbide Mononitrate [Isosorbide 120 mg PO BID 02/03/20 Mononitrate ER] Lisinopril 20 mg PO BID 02/03/20 Rivaroxaban [Xarelto] 10 mg PO DAILY #14 tab 02/06/20 - Social History Tobacco Use: non-smoker Vital Signs Temp Pulse Resp BP Pulse Ox 99.5 F H 68 20 H 134/69 H 93 02/13/20 08:41 02/13/20 08:41 02/13/20 08:41 02/13/20 08:41 02/13/20 09:00 Oxygen Flow Rate (L/min) 3 Oxygen Delivery Method Nasal Cannula Weight: 102.3 kg Body Mass Index (BMI) 34.2 Finger Stick Blood Glucose 272 Microbiology Past 72 Hours 02/12/20 18:15 Urine Culture - Preliminary Urine Catheter - Catheter Culture exhibits no growth. 02/13/20 06:55 Legionella Antigen - Final Urine Catheter - Catheter Streptococcus pneumoniae Antigen (M - Final 02/12/20 22:25 Respiratory Panel (PCR) - Final Mucosa - Nasopharyngeal Laboratory Tests Past 24 Hrs 02/12/20 02/12/20 02/12/20 17:15 17:15 17:15 WBC 7.7 Corrected WBC RBC 4.45 L Hgb 13.5 Hct 40.4 MCV 90.8 MCH 30.3 MCHC 33.4 RDW Std Deviation 42.3 RDW Coeff of Smooth 12.8 Plt Count 284 MPV 13.1 H Immature Gran % (Auto) 0.600 Neut % (Auto) 81.3 H Lymph % (Auto) 13.3 L [place] % (Auto) 2.8 Eos % (Auto) 1.9 Baso % (Auto) 0.1 Absolute Neuts (auto) 6.3 Absolute Lymphs (auto) 1.03 Total Counted Neutrophils % (Manual) Band Neutrophils % Lymphocytes % (Manual) Monocytes % (Manual) Eosinophils % (Manual) Basophils % (Manual) Metamyelocytes % Myelocytes % Promyelocytes % Blast Cells % Plasma Cell % (Manual) Other Cells % Nucleated RBC % 0 Nucleated RBCs/100 WBC Differential Comment Diff Path Review Hypersegmented Neuts Atypical Lymphocytes Reactive Lymphocytes Smudge Cells Toxic Granulation Toxic Vacuolation Dohle Bodies Koby Rods Platelet Estimate Plt Morphology Comment RBC Morphology Polychromasia Hypochromasia Poikilocytosis Basophilic Stippling Anisocytosis Microcytosis Macrocytosis Spherocytes Sickle Cells Target Cells Tear Drop Cells Ovalocytes Stomatocytes [place] Bodies [place] Cells Bite Cells Crenated Cell Acanthocytes (Spur) Rouleaux Schistocytes PT 24.7 H INR 2.3 APTT 37.3 H D-Dimer Quant (PE/DVT) Sodium 135 L Potassium 4.2 Chloride 100 Carbon Dioxide 24.0 Anion Gap 11 BUN 72 H Creatinine 2.13 H Estim Creat Clear Calc 31.67 Est GFR (MDRD) Af Amer 40 L Est GFR (MDRD) Non-Af 33 L BUN/Creatinine Ratio 33.8 H Glucose 261 H Lactic Acid Calcium 9.3 Phosphorus Magnesium Ferritin Total Bilirubin 0.80 AST 190 H ALT 128 H Alkaline Phosphatase 84 Troponin I C-React Prot Ext Range B-Natriuretic Peptide Total Protein 7.9 Albumin 2.4 L Globulin 5.5 H Albumin/Globulin Ratio 0.4 L Procalcitonin Urine Color Urine Clarity Urine pH Ur Specific [place] Urine Protein Urine Glucose (UA) Urine Ketones Urine Occult Blood Urine Nitrite Urine Bilirubin Urine Urobilinogen Ur Leukocyte Esterase Urine RBC Urine WBC Ur Squamous Epith Cells Amorphous Sediment Urine Bacteria Urine Mucus MRSA (PCR) 02/12/20 02/12/20 02/12/20 17:15 17:15 17:15 WBC Corrected WBC RBC Hgb Hct MCV MCH MCHC RDW Std Deviation RDW Coeff of Smooth Plt Count MPV Immature Gran % (Auto) Neut % (Auto) Lymph % (Auto) [place] % (Auto) Eos % (Auto) Baso % (Auto) Absolute Neuts (auto) Absolute Lymphs (auto) Total Counted Neutrophils % (Manual) Band Neutrophils % Lymphocytes % (Manual) Monocytes % (Manual) Eosinophils % (Manual) Basophils % (Manual) Metamyelocytes % Myelocytes % Promyelocytes % Blast Cells % Plasma Cell % (Manual) Other Cells % Nucleated RBC % Nucleated RBCs/100 WBC Differential Comment Diff Path Review Hypersegmented Neuts Atypical Lymphocytes Reactive Lymphocytes Smudge Cells Toxic Granulation Toxic Vacuolation Dohle Bodies Koby Rods Platelet Estimate Plt Morphology Comment RBC Morphology Polychromasia Hypochromasia Poikilocytosis Basophilic Stippling Anisocytosis Microcytosis Macrocytosis Spherocytes Sickle Cells Target Cells Tear Drop Cells Ovalocytes Stomatocytes [place] Bodies [place] Cells Bite Cells Crenated Cell Acanthocytes (Spur) Rouleaux Schistocytes PT INR APTT D-Dimer Quant (PE/DVT) 1.50 H* Sodium Potassium Chloride Carbon Dioxide Anion Gap BUN Creatinine Estim Creat Clear Calc Est GFR (MDRD) Af Amer Est GFR (MDRD) Non-Af BUN/Creatinine Ratio Glucose Lactic Acid 1.7 Calcium Phosphorus Magnesium Ferritin Total Bilirubin AST ALT Alkaline Phosphatase Troponin I C-React Prot Ext Range B-Natriuretic Peptide Pending Total Protein Albumin Globulin Albumin/Globulin Ratio Procalcitonin Urine Color Urine Clarity Urine pH Ur Specific [place] Urine Protein Urine Glucose (UA) Urine Ketones Urine Occult Blood Urine Nitrite Urine Bilirubin Urine Urobilinogen Ur Leukocyte Esterase Urine RBC Urine WBC Ur Squamous Epith Cells Amorphous Sediment Urine Bacteria Urine Mucus MRSA (PCR) 02/12/20 02/12/20 02/12/20 17:15 17:15 18:15 WBC Corrected WBC RBC Hgb Hct MCV MCH MCHC RDW Std Deviation RDW Coeff of Smooth Plt Count MPV Immature Gran % (Auto) Neut % (Auto) Lymph % (Auto) [place] % (Auto) Eos % (Auto) Baso % (Auto) Absolute Neuts (auto) Absolute Lymphs (auto) Total Counted Neutrophils % (Manual) Band Neutrophils % Lymphocytes % (Manual) Monocytes % (Manual) Eosinophils % (Manual) Basophils % (Manual) Metamyelocytes % Myelocytes % Promyelocytes % Blast Cells % Plasma Cell % (Manual) Other Cells % Nucleated RBC % Nucleated RBCs/100 WBC Differential Comment Diff Path Review Hypersegmented Neuts Atypical Lymphocytes Reactive Lymphocytes Smudge Cells Toxic Granulation Toxic Vacuolation Dohle Bodies Koby Rods Platelet Estimate Plt Morphology Comment RBC Morphology Polychromasia Hypochromasia Poikilocytosis Basophilic Stippling Anisocytosis Microcytosis Macrocytosis Spherocytes Sickle Cells Target Cells Tear Drop Cells Ovalocytes Stomatocytes [place] Bodies Harshil Cells Bite Cells Crenated Cell Acanthocytes (Spur) Rouleaux Schistocytes PT INR APTT D-Dimer Quant (PE/DVT) Sodium Potassium Chloride Carbon Dioxide Anion Gap BUN Creatinine Estim Creat Clear Calc Est GFR (MDRD) Af Amer Est GFR (MDRD) Non-Af BUN/Creatinine Ratio Glucose Lactic Acid Calcium Phosphorus Magnesium Ferritin Total Bilirubin AST ALT Alkaline Phosphatase Troponin I < 0.015 C-React Prot Ext Range B-Natriuretic Peptide Total Protein Albumin Globulin Albumin/Globulin Ratio Procalcitonin Pending Urine Color Yellow Urine Clarity Clear Urine pH 5.0 Ur Specific [place] 1.015 Urine Protein Negative Urine Glucose (UA) 1000 H Urine Ketones 15 H Urine Occult Blood Negative Urine Nitrite Negative Urine Bilirubin Negative Urine Urobilinogen Normal Ur Leukocyte Esterase Negative Urine RBC 0 SEEN Urine WBC 0 SEEN Ur Squamous Epith Cells 0 SEEN Amorphous Sediment 1+ Urine Bacteria 0 SEEN Urine Mucus 0 SEEN MRSA (PCR) 02/12/20 02/13/20 02/13/20 21:30 07:00 07:00 WBC Cancelled Corrected WBC Cancelled RBC Cancelled Hgb Cancelled Hct Cancelled MCV Cancelled MCH Cancelled MCHC Cancelled RDW Std Deviation Cancelled RDW Coeff of Smooth Cancelled Plt Count Cancelled MPV Cancelled Immature Gran % (Auto) Cancelled Neut % (Auto) Cancelled Lymph % (Auto) Cancelled [place] % (Auto) Cancelled Eos % (Auto) Cancelled Baso % (Auto) Cancelled Absolute Neuts (auto) Cancelled Absolute Lymphs (auto) Cancelled Total Counted Cancelled Neutrophils % (Manual) Cancelled Band Neutrophils % Cancelled Lymphocytes % (Manual) Cancelled Monocytes % (Manual) Cancelled Eosinophils % (Manual) Cancelled Basophils % (Manual) Cancelled Metamyelocytes % Cancelled Myelocytes % Cancelled Promyelocytes % Cancelled Blast Cells % Cancelled Plasma Cell % (Manual) Cancelled Other Cells % Cancelled Nucleated RBC % Cancelled Nucleated RBCs/100 WBC Cancelled Differential Comment Cancelled Diff Path Review Cancelled Hypersegmented Neuts Cancelled Atypical Lymphocytes Cancelled Reactive Lymphocytes Cancelled Smudge Cells Cancelled Toxic Granulation Cancelled Toxic Vacuolation Cancelled Dohle Bodies Cancelled Koby Rods Cancelled Platelet Estimate Cancelled Plt Morphology Comment Cancelled RBC Morphology Cancelled Polychromasia Cancelled Hypochromasia Cancelled Poikilocytosis Cancelled Basophilic Stippling Cancelled Anisocytosis Cancelled Microcytosis Cancelled Macrocytosis Cancelled Spherocytes Cancelled Sickle Cells Cancelled Target Cells Cancelled Tear Drop Cells Cancelled Ovalocytes Cancelled Stomatocytes Cancelled [place] Bodies Cancelled [place] Cells Cancelled Bite Cells Cancelled Crenated Cell Cancelled Acanthocytes (Spur) Cancelled Rouleaux Cancelled Schistocytes Cancelled PT INR APTT D-Dimer Quant (PE/DVT) Sodium 137 Potassium 4.7 Chloride 107 Carbon Dioxide 21.0 Anion Gap 9 BUN 67 H Creatinine 1.63 H Estim Creat Clear Calc 41.38 Est GFR (MDRD) Af Amer 54 L Est GFR (MDRD) Non-Af 45 L BUN/Creatinine Ratio 41.1 H Glucose 153 H Lactic Acid Calcium 9.6 Phosphorus 4.3 Magnesium 2.8 H Ferritin 1689 H Total Bilirubin 0.90 AST 150 H ALT 123 H Alkaline Phosphatase 92 Troponin I < 0.015 C-React Prot Ext Range 337.00 H B-Natriuretic Peptide Total Protein 8.0 Albumin 3.4 Globulin 4.6 H Albumin/Globulin Ratio 0.7 L Procalcitonin Urine Color Urine Clarity Urine pH Ur Specific [place] Urine Protein Urine Glucose (UA) Urine Ketones Urine Occult Blood Urine Nitrite Urine Bilirubin Urine Urobilinogen Ur Leukocyte Esterase Urine RBC Urine WBC Ur Squamous Epith Cells Amorphous Sediment Urine Bacteria Urine Mucus MRSA (PCR) Negative 02/13/20 02/13/20 02/13/20 07:00 07:00 08:22 WBC 8.6 Corrected WBC RBC 4.40 L Hgb 13.2 Hct 42.4 MCV 96.4 H D MCH 30.0 MCHC 31.1 L D RDW Std Deviation 47.1 H RDW Coeff of Smooth 13.2 Plt Count 270 MPV 12.9 H Immature Gran % (Auto) 0.400 Neut % (Auto) 83.7 H Lymph % (Auto) 10.5 L [place] % (Auto) 2.8 Eos % (Auto) 2.2 Baso % (Auto) 0.4 Absolute Neuts (auto) 7.2 Absolute Lymphs (auto) 0.90 Total Counted Neutrophils % (Manual) Band Neutrophils % Lymphocytes % (Manual) Monocytes % (Manual) Eosinophils % (Manual) Basophils % (Manual) Metamyelocytes % Myelocytes % Promyelocytes % Blast Cells % Plasma Cell % (Manual) Other Cells % Nucleated RBC % 0 Nucleated RBCs/100 WBC Differential Comment Diff Path Review Hypersegmented Neuts Atypical Lymphocytes Reactive Lymphocytes Smudge Cells Toxic Granulation Toxic Vacuolation Dohle Bodies Koby Rods Platelet Estimate Plt Morphology Comment RBC Morphology Polychromasia Hypochromasia Poikilocytosis Basophilic Stippling Anisocytosis Microcytosis Macrocytosis Spherocytes Sickle Cells Target Cells Tear Drop Cells Ovalocytes Stomatocytes [place] Bodies Harshil Cells Bite Cells Crenated Cell Acanthocytes (Spur) Rouleaux Schistocytes PT INR APTT D-Dimer Quant (PE/DVT) 1.13 H* Sodium Potassium Chloride Carbon Dioxide Anion Gap BUN Creatinine Estim Creat Clear Calc Est GFR (MDRD) Af Amer Est GFR (MDRD) Non-Af BUN/Creatinine Ratio Glucose Lactic Acid Calcium Phosphorus Magnesium Ferritin Total Bilirubin AST ALT Alkaline Phosphatase Troponin I C-React Prot Ext Range B-Natriuretic Peptide Total Protein Albumin Globulin Albumin/Globulin Ratio Procalcitonin Pending Urine Color Urine Clarity Urine pH Ur Specific [place] Urine Protein Urine Glucose (UA) Urine Ketones Urine Occult Blood Urine Nitrite Urine Bilirubin Urine Urobilinogen Ur Leukocyte Esterase Urine RBC Urine WBC Ur Squamous Epith Cells Amorphous Sediment Urine Bacteria Urine Mucus MRSA (PCR) - Other Studies Radiology: [] reviewed Other Studies: [] Route of nutrition/ use of supplements: [] Nutritional Intake: [] IV Site: [] Hill Catheter: [] - Physical Exam General: Cooperative, No apparent distress HEENT: Atraumatic, PERRLA, EOMI Neck: Supple, No Nodes Lungs: Diminished Cardiovascular: Regular rate, Regular Rhythm Abdomen: Soft, Non Tender, Non-Distended Extremities: No edema Skin: No rashes IV Site: Peripheral, without redness Musculoskeletal: No Tenderness to Palpation of Joints or Extremities Neurological: Cranial nerves II-XII grossly intact - Assessment/Plan Antibiotics: [] Assessment/Plan: [] Active and Suspected Problems (Last Reviewed 02/12/20 @ 19:[address] Tari Ray, DO) COVID-19 (Acute) Mild dehydration (Acute) Pneumonia (Acute) Acute and chronic respiratory failure with hypoxia (Acute) Debility (Acute) PATRICK (acute kidney injury) (Acute) Transaminitis (Acute) fever, PATRICK, new bilateral infiltrates, hypoxia - Wbc normal, UAg neg, no sputum, PCT pending. Cxs neg so far. Overall seems consistent with ongoing covid. Will stop vanc/cefepime and start po dex. MRSA screen was neg. Has been on xarelto, so lower suspicion for new PE. D-dimer 1.5. PATRICK is improving. Will follow, thank you, d/w Dr. Maldonado
[2020-02-13 13:41] LABS: BNP,B-Type NATRIURETIC PEPTIDE 49.5 pg/mL (0-100)
--- NOTE | 2020-02-13 13:50 | CASEMGMT ---
RN CM Assessment Note Introduced role of CM to patient's . states patient does not wish intubation and he is DNRCC-A no intubation. Demographics, PCP verified. The patient was generally independent prior to admission, but used a cane. Now, due to weakness, he was using a walker. Oxygen set up at home through [facility]. did voice if patient condition worsens, they would consider Hospice @ home instead of aggressive care. Presentation: shortness of breath, weakness Diagnosis: ongoing COVID, Pneumonia PCP: Dr. Reed Insurance: [facility] Preferred Pharmacy: [facility] in [place] Prescription Benefit: no LNOK: Living Arrangements: Lives in one story home, no stairs with who is able to assist patient Tranportation: family can arrange pickle processor on dc. DME: cane, walker, Home Oxygen through [facility] with concentrator, portable, cpap. HHC: [facility] HHS was to begin, however patient came to hospital prior to start of care. Will need to have ID evaluate if pt is still considered COVID + contagious and let them know prior to dc to see if they can accept the patient again. Patient DC Goals: home DC Plan: undetermined CM available for discharge planning coordination. Contact CM for any concerns/needs that may arise. Pricilla LEVIN RN ACM
[2020-02-13 13:54] LABS: Procalcitonin 0.11 ng/mL (0.00-0.09)
--- NOTE | 2020-02-13 13:59 | PCM.NTREPORT ---
Nutrition Therapy Report - History Nutrition Services has been consulted to:: Manage nutrient details of diet order Current diet / nutrition support order:: Cardiac; Glucerna 240 ml w/ meals. - Anthropometric Measurements Height:: 5 ft 8 in Weight:: 102.3 kg Body Mass Index (BMI):: 34.2 - Relevant Labs Relevant Labs:: RBC 4.40 M/mm3 (4.6-6.2) L 02/13/20 08:22 MCV 96.4 fL (80-94) H D 02/13/20 08:22 MCHC 31.1 g/dL (32-36) L D 02/13/20 08:22 RDW Std Deviation 47.1 fl (35.1-43.9) H 02/13/20 08:22 MPV 12.9 fl (6.2-12.0) H 02/13/20 08:22 Neut % (Auto) 83.7 % (47-70) H 02/13/20 08:22 Lymph % (Auto) 10.5 % (19-41) L 02/13/20 08:22 PT 24.7 SECONDS (11.7-14.9) H 02/12/20 17:15 APTT 37.3 Seconds (24.1-36.2) H 02/12/20 17:15 D-Dimer Quant (PE/DVT) 1.13 FEU/ug/m (0.27-0.49) H* 02/13/20 07:00 Sodium 135 mmol/L (136-145) L 02/12/20 17:15 BUN 67 mg/dL (7-18) H 02/13/20 07:00 Creatinine 1.63 mg/dL (0.70-1.30) H 02/13/20 07:00 Est GFR (MDRD) Af Amer 54 mL/min (>60) L 02/13/20 07:00 Est GFR (MDRD) Non-Af 45 mL/min (>60) L 02/13/20 07:00 BUN/Creatinine Ratio 41.1 RATIO (10-20) H 02/13/20 07:00 Glucose 153 mg/dL (74-106) H 02/13/20 07:00 Magnesium 2.8 mg/dL (1.6-2.6) H 02/13/20 07:00 Ferritin 1689 ng/mL (26-388) H 02/13/20 07:00 AST 150 U/L (15-37) H 02/13/20 07:00 ALT 123 U/L (16-61) H 02/13/20 07:00 C-React Prot Ext Range 337.00 mg/L (0.0-3.0) H 02/13/20 07:00 Albumin 2.4 g/dL (3.2-5.0) L 02/12/20 17:15 Globulin 4.6 g/dL (2.2-4.2) H 02/13/20 07:00 Albumin/Globulin Ratio 0.7 RATIO (0.9-2.4) L 02/13/20 07:00 Procalcitonin 0.11 ng/mL (0.00-0.09) H 02/12/20 17:15 - Assessment Food / Nutrition-Related History:: Pt in COVID isolation precautions, RDN attempted to speak w/ pt via phone however pt unavailable at this time. Pt A&O to self only. Reported poor intake d/t decreased appetite per RN nutrition screen and unintentional wt loss. CBW 225.6#; wt hx per EMR 241.4# 02/03/20-- 15.9#/6.5% wt loss x 1 1/2 weeks (severe). Unable to assess s/s of muscle/fat wasting at this time. Pt upon admin w/ 1800 calorie controlled diet w/ ONS glucerna 120 ml 4x/day- DC to Cardiac diet w/ 240 ml glucerna w/ meals- will DC and provide Regular diet w/ ONS at meals. - Nutrition Diagnosis Problem / Etiology / Signs & Symptoms (PES):: Moderate malnutrition in the context of acute illness/injury related to inadequate oral intake as evidenced by 15.9#/6.5% wt loss x 1 1/2 weeks, pt reported poor intake d/t decreased appetite per RN nutrition screen. Evidence of Malnutrition Exists:: Yes Moderate PCM:: Acute Illness - Nutrition Intervention Nutrition Prescription:: [id number] calories; 80-90 grams protein - Food / Nutrient Delivery Interventions Summary of nutrition intervention:: Will liberalize pt to Regular diet and continue ONS w/ meals for additional dunia/pro if consumed. As pt intake improves will adjust diet to therapeutic diet as indicated. Nutrition support ordered as / adjusted to:: Regular diet; ONS glucerna shake 240 mL TID w/ meals. Nutrition education provided?: No - MNT Monitoring Further MNT monitoring and evaluation required?: Yes MNT Follow-up in:: 3-5 days
[2020-02-13] MEDS: dexAMETHasone 4 MG Tablet 6 MG PO (14:03)
[2020-02-13 14:10] LABS: Procalcitonin < 0.04 ng/mL (0.00-0.09)
[2020-02-13 16:31] LABS: Bedside Glucose 148 mg/dL (70-110)
[2020-02-13] MEDS: Metoprolol Tartrate 25 MG Tablet 12.5 MG PO (23:39)
[2020-02-14] VITALS (7 sets, daily range): BP systolic 149–158; BP diastolic 75–94; PULSE 58–77; RESP 18; TEMP 36.6–36.9; O2SAT 86–97
[2020-02-14] MEDS: Insulin Lispro 100 UNIT/ML INSULN.PEN SC ×3 (06:42→16:37)
[2020-02-14] MEDS: Gabapentin 300 MG Capsule PO ×2 (06:42→14:12)
[2020-02-14 07:21] LABS: Bedside Glucose 231 mg/dL (70-110)
[2020-02-14 07:21] LABS: Bedside Glucose 258 mg/dL (70-110)
[2020-02-14] MEDS: Donepezil HCl 10 MG Tablet PO (08:41)
[2020-02-14] MEDS: DULoxetine Hcl 30 MG Capsule PO (08:41)
[2020-02-14] MEDS: Aspirin E.C. 81 MG Tablet PO (08:41)
[2020-02-14] MEDS: Multivitamins,Therapeutic Tablet 1 TABLET PO (08:41)
[2020-02-14] MEDS: Clopidogrel Bisulfate 75 MG Tablet PO (08:42)
[2020-02-14] MEDS: QUEtiapine 25 MG Tablet PO (08:42)
[2020-02-14] MEDS: Rivaroxaban 10 MG Tablet PO (08:42)
[2020-02-14] MEDS: dexAMETHasone 4 MG Tablet 6 MG PO (08:42)
[2020-02-14] MEDS: buPROPion (XL) 300 MG TABLET.XL PO (08:42)
[2020-02-14] MEDS: buPROPion (SR) 100 MG TABLET.SA PO (11:37)
--- NOTE | 2020-02-14 12:31 | CASEMGMT ---
Social Work Per therapy, pt is requiring min Ax1-2 and is very unsteady and requiring oxygen. Therapy recommending SNF at this time. SW placed call to pt Tiffanie Zhong and explained how pt is doing with ambulation and self care and therapy recommendations for SNF as well as need for home 02 and that pt has been incontinent multiple times throughout night and day. acknowledging that she is aware that pt will take a lot of care at home but that she has talked to all of her children, and children have agreed to taking turns staying with and pt and providing 24 hour care to pt. Pt does have a walker and home oxygen concentrator, walk in shower and no steps into home and pt does have depends at home for incontinence. Pt would like home health services and states the family feels a hospital bed would be helpful. SW explained that at this time it is uncertain if insurance will cover bed but will investigate and let family know martinez if it is not covered. Home health has been arranged with [facility] for RN, PT, OT and they are able to accept. Pt inquiring if pt is hospice appropriate at this time and per physician, pt is not. SW discussed hospice care with pt . Pt dgt plans to pick pt up today to transport home and will bring an oxygen tank with her for transport home. Script for hospital bed faxed to [facility]. Plan: Home with family providing 24/7 care. [facility] MAHSA Razo
--- NOTE | 2020-02-14 12:38 | PCM.DC ---
- Discharge Diagnoses Current Active Problems: Current Active and Chronic Problems (Last Reviewed 02/12/20 @ 19:[address] 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) History of DVT (deep vein thrombosis) (Chronic) Patient was on Xarelto for this, is not presently Nonrheumatic tricuspid (valve) insufficiency (Chronic) Mild (1+) per echo 02/17/2018 Secondary pulmonary hypertension (Chronic) Mild, RVSP 45 mmhg per echo 02/17/2018 Grade II diastolic dysfunction (Chronic) Per echo 02/17/2018 Systolic and diastolic CHF, 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% per echo February 2018 Stented coronary artery (Chronic 03/15/18) JACI of proximal LCX w/3.0 X 38 Promus Syncergy 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) JACI of proximal LCX w/3.0 X 38 Promus Syncergy HLD (hyperlipidemia) (Chronic) HTN (hypertension) (Chronic) DM2 (diabetes mellitus, type 2) (Chronic) You will use the following diet at home:: Calorie/Carbohydrate Controlled (specify 1200, 1400, etc) - 1800 dunia Your food should be the consistency of: Regular Your liquids should be the consistency of: Regular/Thin Discharge Activity: Return to Normal Activity Weight Bearing Status: Full weight bearing Additional Instructions: Use oxygen at 2 liters per minute Allergies/Adverse Reactions: Allergies hydrochlorothiazide Allergy (Verified 02/12/20 17:16) Unknown Penicillins [PCN] Allergy (Verified 02/12/20 17:16) Swelling pioglitazone [From Actos] Allergy (Verified 02/12/20 17:16) Unknown gemfibrozil Adverse Reaction (Severe, Verified 02/12/20 17:16) caused very high blood glucose oxycodone [From OxyIR] Adverse Reaction (Verified 02/12/20 17:16) Other pravastatin Adverse Reaction (Verified 02/12/20 17:16) Pain in joints Medications to take at Discharge Aspirin [Aspirin EC] 81 mg PO DAILY 03/15/17 Bupropion HCl [Bupropion HCl ER] 100 mg PO LUNCH 03/15/17 Gabapentin [Neurontin] 300 mg PO TID 03/15/17 Multivitamin [Multiple Vitamins] 1 ea PO DAILY 03/15/17 buPROPion XL [Wellbutrin Xl] 300 mg PO 0800 03/15/17 Quetiapine Fumarate [Seroquel] 25 mg PO BID 01/24/18 metoprolol tartrate 25 mg tablet 12.5 mg PO QHS tab 07/13/18 insulin aspar prot-insulin aspart 100 unit/mL (70-30) subcutaneous pen See Rx Instructions SUBCUT .ac ml 10/05/18 nitroglycerin 0.4 mg sublingual tablet 0.4 mg SUBLINGUAL Q5-15M PRN #25 tab 10/05/18 icosapent ethyl 1 gram capsule 2 g PO BID #120 cap 08/23/19 donepezil 10 mg tablet 10 mg PO BID tab 09/09/19 duloxetine 30 mg capsule,delayed release sprinkle 30 mg PO BID cap 09/09/19 empagliflozin 25 mg tablet 25 mg PO DAILY 09/09/19 Cholecalciferol (Vitamin D3) [Vitamin D3] 2,000 unit PO DAILY 02/03/20 Clopidogrel Bisulfate [Plavix] 75 mg PO DAILY 02/03/20 Furosemide [Lasix] 20 mg PO DAILY 02/03/20 Isosorbide Mononitrate [Isosorbide Mononitrate ER] 120 mg PO BID 02/03/20 Lisinopril 20 mg PO BID 02/03/20 Rivaroxaban [Xarelto] 10 mg PO DAILY #14 tab 02/14/20 Primary Care Physician: Juve Reed MD [Primary Care Provider] - Please follow up with your Primary Care Physician in: in 7-10 days Test Results: Test results from this visit will be discussed in further detail at your follow-up appointment, if applicable.
--- NOTE | 2020-02-14 13:05 | PCM.HOSP.N ---
Hospitalist Note Patient was provided a prescription for a hospital bed, he needs a hospital bed due to COVID-19, hypoxia, and generalized debility.
[2020-02-14 13:31] LABS: Bedside Glucose 303 mg/dL (70-110)
--- NOTE | 2020-02-14 15:18 | CASEMGMT ---
Social Work Phone call to [facility] and they are able to provide a hospital bed and have been in contact with pt with [facility] and delivery time. 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 Nursing notified. MAHSA Razo
--- NOTE | 2020-02-14 16:09 | PCM.PN.ID ---
Patient Problems: Active and Suspected Problems (Last Reviewed 02/12/20 @ 19:[address] Tari Ray DO) COVID-19 (Acute) Mild dehydration (Acute) Pneumonia (Acute) Acute and chronic respiratory failure with hypoxia (Acute) Debility (Acute) PATRICK (acute kidney injury) (Acute) Transaminitis (Acute) Subjective: Feeling better, going home today, no fever - Physical Exam Vitals/I&O's: Vital Signs Temp Pulse Resp BP Pulse Ox 98.5 F 58 L 18 158/76 H 95 02/14/20 15:15 02/14/20 15:15 02/14/20 15:15 02/14/20 15:15 02/14/20 15:15 Oxygen Flow Rate (L/min) [ 2 AMBULATION with Oxygen] Oxygen Flow Rate (L/min) 2 Oxygen Delivery Method Nasal Cannula Weight: 103.2 kg Body Mass Index (BMI) 34.2 Finger Stick Blood Glucose 272 Intake and Output for Last 24 Hours 02/12/20 02/13/20 02/14/20 23:59 23:59 23:59 Intake Total 730 / 730 2751.25 / 2751.25 1200 / 1200 Output Total 600 / 600 Balance 730 / 730 2151.25 / 2151.25 1200 / 1200 General: Cooperative, No apparent distress Lungs: Diminished Cardiovascular: Regular rate, Regular Rhythm Abdomen: Soft, Non Tender, Non-Distended Skin: No rashes Microbiology Past 72 Hours 02/12/20 18:15 Urine Catheter - Catheter Urine Culture - Preliminary Culture exhibits no growth. 02/13/20 06:55 Urine Catheter - Catheter Legionella Antigen - Final 02/13/20 06:55 Urine Catheter - Catheter Streptococcus pneumoniae Antigen (M - Final 02/12/20 22:25 Mucosa - Nasopharyngeal Respiratory Panel (PCR) - Final Laboratory Results 02/13/20 16:26: POC Glucose 148 H 02/13/20 23:18: POC Glucose 231 H 02/14/20 06:39: POC Glucose 258 H 02/14/20 11:35: POC Glucose 303 H Current Medications Acetaminophen (Acetaminophen 325 Mg Tablet) 650 mg PO Q6H PRN PRN PRN Reason: Pain Score 1-10/Temp > 100.7 F Albuterol Sulfate (Albuterol Sulfate Hfa 6.7 Gm Inhaler (200 Puffs)) 2 puff IH Q4H PRN PRN PRN Reason: Shortness of Breath/Wheezing Aspirin (Aspirin E.C. 81 Mg Tablet) 81 mg PO DAILY [facility] Last Admin: 02/14/20 08:41 Dose: 81 mg Documented by: Bupropion HCl (Bupropion (Xl) 300 Mg Tablet.Xl) 300 mg PO DAILY [facility] Last Admin: 02/14/20 08:42 Dose: 300 mg Documented by: Bupropion HCl (Bupropion (Sr) 100 Mg Tablet.Sa) 100 mg PO LUNCH [facility] Last Admin: 02/14/20 11:37 Dose: 100 mg Documented by: Cholecalciferol (Cholecalciferol (Vit D3) 1,000 Unit (25mcg)) 2,000 unit PO DAILY [facility] Last Admin: 02/14/20 08:42 Dose: 2,000 unit Documented by: Clopidogrel Bisulfate (Clopidogrel Bisulfate 75 Mg Tablet) 75 mg PO DAILY [facility] Last Admin: 02/14/20 08:42 Dose: 75 mg Documented by: Dexamethasone (Dexamethasone 4 Mg Tablet) 6 mg PO DAILY@0800 [facility] Stop: 02/22/20 08:01 Last Admin: 02/14/20 08:42 Dose: 6 mg Documented by: Donepezil HCl (Donepezil Hcl 10 Mg Tablet) 10 mg PO BID [facility] Last Admin: 02/14/20 08:41 Dose: 10 mg Documented by: Duloxetine HCl (Duloxetine Hcl 30 Mg Capsule) 30 mg PO BID [facility] Last Admin: 02/14/20 08:41 Dose: 30 mg Documented by: Gabapentin (Gabapentin 300 Mg Capsule) 300 mg PO TID [facility] Last Admin: 02/14/20 14:12 Dose: 300 mg Documented by: Sodium Chloride () 250 mls @ 15 mls/hr IV .[id number] PRN PRN Reason: Saline Flush Lactated Ringer's () 1,000 mls @ 75 mls/hr IV .[id number] [facility] Last Infusion: 02/14/20 11:39 Dose: Infused Documented by: Insulin Glargine (Insulin Glargine 100 Units/Ml Pen) 10 units SC QHS [facility] Last Admin: 02/13/20 23:38 Dose: 10 units Documented by: Insulin Human Lispro (Insulin Lispro 100 Unit/Ml Insuln.Pen) 0 unit SC ACHS [facility]; Protocol Last Admin: 02/14/20 11:37 Dose: 4 u Documented by: Metoprolol Tartrate (Metoprolol Tartrate 25 Mg Tablet) 12.5 mg PO QHS [facility] Last Admin: 02/13/20 23:39 Dose: 12.5 mg Documented by: Multivitamins (Multivitamins,Therapeutic Tablet) 1 tablet PO DAILY [facility] Last Admin: 02/14/20 08:41 Dose: 1 tablet Documented by: Ondansetron HCl (Ondansetron 4 Mg/2 Ml Vial) 4 mg IV Q8H PRN PRN PRN Reason: NAUSEA/VOMITING Quetiapine Fumarate (Quetiapine 25 Mg Tablet) 25 mg PO BID [facility] Last Admin: 02/14/20 08:42 Dose: 25 mg Documented by: Rivaroxaban (Rivaroxaban 10 Mg Tablet) 10 mg PO DAILY [facility] Last Admin: 02/14/20 08:42 Dose: 10 mg Documented by: Sodium Chloride (0.9% Saline Lock 10 Ml Syringe) 10 - 40 ml IV UD PRN PRN Reason: SALINE FLUSH Last Admin: 02/13/20 08:35 Dose: 10 ml Documented by: Medical Necessity - Tobacco Use Smoking Status: Never smoker Route of nutrition/ use of supplements: [] Nutritional Intake: [] IV Site: [] Hill Catheter: [] - Assessment/Plan Antibiotics: [] Assessment/Plan: [] Active and Suspected Problems (Last Reviewed 02/12/20 @ 19:[address] Tari Ray, DO) COVID-19 (Acute) Mild dehydration (Acute) Pneumonia (Acute) Acute and chronic respiratory failure with hypoxia (Acute) Debility (Acute) PATRICK (acute kidney injury) (Acute) Transaminitis (Acute) fever, PATRICK, new bilateral infiltrates, hypoxia - On dex, xarelto, fever resolved. Plan on 10 day course total of dex. Wbc normal. Will follow as needed
[2020-02-14 17:10] LABS: Bedside Glucose 289 mg/dL (70-110)
--- NOTE | 2020-02-14 18:19 | PCM.DC.SUM ---
Discharge Date and Diagnosis - Problem List Patient Problems: Active and Suspected Problems (Last Reviewed 02/12/20 @ 19:[address] Tari Ray DO) COVID-19 (Acute) Mild dehydration (Acute) Pneumonia (Acute) Acute and chronic respiratory failure with hypoxia (Acute) Debility (Acute) PATRICK (acute kidney injury) (Acute) Transaminitis (Acute) Date of Admission: 02/12/20 Date of Discharge: 02/14/20 - Primary Discharge Diagnosis Acute Problems: Active Problems (Last Reviewed 02/12/20 @ 19:[address] Tari Ray DO) 1 hypoxia secondary to COVID-19 pneumonia #2 type 2 diabetes #3 dementia #4 Essential hypertension #5 chronic kidney disease stage III secondary to type 2 diabetes #6 generalized debility secondary to recent COVID-19 infection and underlying dementia #7 Severe protein and caloric malnutrition #8 dehydration No evidence of hospital-acquired pneumonia or bacterial pneumonia-this was ruled out - Secondary Discharge Diagnosis Chronic Problems: Chronic Problems (Last Reviewed 02/12/20 @ 19:[address] 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) History of DVT (deep vein thrombosis) (Chronic) Patient was on Xarelto for this, is not presently Nonrheumatic tricuspid (valve) insufficiency (Chronic) Mild (1+) per echo 02/17/2018 Secondary pulmonary hypertension (Chronic) Mild, RVSP 45 mmhg per echo 02/17/2018 Grade II diastolic dysfunction (Chronic) Per echo 02/17/2018 Systolic and diastolic CHF, 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% per echo February 2018 Stented coronary artery (Chronic 03/15/18) JACI of proximal LCX w/3.0 X 38 Promus Syncergy 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) JACI of proximal LCX w/3.0 X 38 Promus Syncergy HLD (hyperlipidemia) (Chronic) HTN (hypertension) (Chronic) DM2 (diabetes mellitus, type 2) (Chronic) Hospital Course and Treatment Operations: None Procedures: None Summary of Care Provided: The patient is a 69 year old M seen in the emergency room at [facility] with chief complaint of generalized weakness, patient was hospitalized 1 week prior with COVID-19 and he was sent home on supplemental oxygen, family members state that he is in a weakened condition and they are unable to take care of him, patient is unable to get out of bed without maximal assistance and cannot perform ADLs. Labs obtained in the emergency room showed the patient's white blood cell count to be normal, patient's creatinine and BUN were elevated, and the chest x-ray obtained showed bilateral multifocal pulmonary infiltrates of the upper and lower lung. Patient was admitted to [place] [id number], initially he was placed on IV antibiotics for possible bacterial healthcare acquired pneumonia, he was seen in consultation by infectious diseases and these antibiotics were stopped and it was felt that he did not have healthcare acquired pneumonia or bacterial pneumonia. Patient was seen by PT and OT, he required supplemental oxygen during his hospital stay and his oxygen requirement did not increase. On 02/14/2020, patient was seen and examined: On examination he appeared his stated age, he had baseline confusion but was able to answer some simple questions appropriately.. Vital signs as documented. Skin warm and dry and without overt rashes. Neck without JVD, neck was supple, trachea midline, thyroid was normal. Lungs clear bilaterally, normal air movement was noted. Heart exam notable for regular rhythm, normal sounds and absence of murmurs, rubs or gallops. Abdomen unremarkable and without evidence of organomegaly, masses, or abdominal aortic enlargement. Bowel sounds are present, abdomen is not distended. Extremities nonedematous, no cyanosis was noted, no clubbing was noted. Neuro: Cranial nerves II through XII are grossly intact, no focal motor deficits were noted, sensation to light touch and pinprick intact, motor exam 5/5 throughout. Psych: Patient is alert but has some mild confusion. Family members decided to take the patient home and care for the patient, he was discharged home on 02/14/2020 in stable condition. Patient Problems: Active and Suspected Problems (Last Reviewed 02/12/20 @ 19:[address] Tari Ray, DO) COVID-19 (Acute) Mild dehydration (Acute) Pneumonia (Acute) Acute and chronic respiratory failure with hypoxia (Acute) Debility (Acute) PATRICK (acute kidney injury) (Acute) Transaminitis (Acute) - Physical Exam Vitals/I&O's: Vital Signs Temp Pulse Resp BP Pulse Ox 98.5 F 58 L 18 158/76 H 95 02/14/20 15:15 02/14/20 15:15 02/14/20 15:15 02/14/20 15:15 02/14/20 15:15 Oxygen Flow Rate (L/min) [ 2 AMBULATION with Oxygen] Oxygen Flow Rate (L/min) 2 Oxygen Delivery Method Nasal Cannula Weight: 103.2 kg Body Mass Index (BMI) 34.2 Finger Stick Blood Glucose 272 Intake and Output for Last 24 Hours 02/12/20 02/13/20 02/14/20 23:59 23:59 23:59 Intake Total 730 / 730 2751.25 / 2751.25 1200 / 1200 Output Total 600 / 600 Balance 730 / 730 2151.25 / 2151.25 1200 / 1200 Microbiology Past 72 Hours 02/12/20 18:15 Urine Catheter - Catheter Urine Culture - Preliminary Culture exhibits no growth. 02/13/20 06:55 Urine Catheter - Catheter Legionella Antigen - Final 02/13/20 06:55 Urine Catheter - Catheter Streptococcus pneumoniae Antigen (M - Final 02/12/20 22:25 Mucosa - Nasopharyngeal Respiratory Panel (PCR) - Final Laboratory Results 02/13/20 23:18: POC Glucose 231 H 02/14/20 06:39: POC Glucose 258 H 02/14/20 11:35: POC Glucose 303 H 02/14/20 16:36: POC Glucose 289 H Discharge Activity: Return to Normal Activity Weight Bearing Status: Full weight bearing Home Medications: Medications to take at Discharge Aspirin [Aspirin EC] 81 mg PO DAILY 03/15/17 Bupropion HCl [Bupropion HCl ER] 100 mg PO LUNCH 03/15/17 Gabapentin [Neurontin] 300 mg PO TID 03/15/17 Multivitamin [Multiple Vitamins] 1 ea PO DAILY 03/15/17 buPROPion XL [Wellbutrin Xl] 300 mg PO 0800 03/15/17 Quetiapine Fumarate [Seroquel] 25 mg PO BID 01/24/18 metoprolol tartrate 25 mg tablet 12.5 mg PO QHS tab 07/13/18 insulin aspar prot-insulin aspart 100 unit/mL (70-30) subcutaneous pen See Rx Instructions SUBCUT .ac ml 10/05/18 nitroglycerin 0.4 mg sublingual tablet 0.4 mg SUBLINGUAL Q5-15M PRN #25 tab 10/05/18 icosapent ethyl 1 gram capsule 2 g PO BID #120 cap 08/23/19 donepezil 10 mg tablet 10 mg PO BID tab 09/09/19 duloxetine 30 mg capsule,delayed release sprinkle 30 mg PO BID cap 09/09/19 empagliflozin 25 mg tablet 25 mg PO DAILY 09/09/19 Cholecalciferol (Vitamin D3) [Vitamin D3] 2,000 unit PO DAILY 02/03/20 Clopidogrel Bisulfate [Plavix] 75 mg PO DAILY 02/03/20 Furosemide [Lasix] 20 mg PO DAILY 02/03/20 Isosorbide Mononitrate [Isosorbide Mononitrate ER] 120 mg PO BID 02/03/20 Lisinopril 20 mg PO BID 02/03/20 Rivaroxaban [Xarelto] 10 mg PO DAILY #14 tab 02/14/20 Primary Care Physician: Juve Reed MD [Primary Care Provider] - Please follow up with your Primary Care Physician in: in 7-10 days Disposition: Home Minutes spent on discharge:: 32 Patient Condition:: Stable Medical Necessity - Tobacco Use Smoking Status: Never smoker Meaningful Use Info Meaningful Use Diagnoses (Choose all that apply): None applicable Inpatient E&M: 86962 Disch Hosp
== END 2020-02-14 17:30 | disposition home or self-care (01) | DRG 177 ==
LOC: ED 18:32 → MS2 18:51
PROVIDERS: Family Medicine; Internal Medicine Infectious Disease; Admitting Provider Internal Medicine; Emergency Provider Emergency Medicine; PCP Family Medicine; Visit Provider Internal Medicine
DX: U07.1 COVID-19 (principal); J12.89 Other viral pneumonia; J96.21 Acute and chronic respiratory failure with hypoxia; I50.43 Acute on chronic combined systolic (congestive) and diastolic (congestive) heart failure; E43 Unspecified severe protein-calorie malnutrition; N17.9 Acute kidney failure, unspecified; I13.0 Hypertensive heart and chronic kidney disease with heart failure and stage 1 through stage 4 chronic kidney disease, or unspecified chronic kidney disease; E86.0 Dehydration; R53.81 Other malaise; R74.01 Elevation of levels of liver transaminase levels; F03.90 Unspecified dementia, unspecified severity, without behavioral disturbance, psychotic disturbance, mood disturbance, and anxiety; Z87.891 Personal history of nicotine dependence; I25.10 Atherosclerotic heart disease of native coronary artery without angina pectoris; E78.5 Hyperlipidemia, unspecified; E11.51 Type 2 diabetes mellitus with diabetic peripheral angiopathy without gangrene; Z79.899 Other long term (current) drug therapy; Z79.4 Long term (current) use of insulin; E11.22 Type 2 diabetes mellitus with diabetic chronic kidney disease; N18.30 Chronic kidney disease, stage 3 unspecified; Z86.718 Personal history of other venous thrombosis and embolism; G47.33 Obstructive sleep apnea (adult) (pediatric); Z68.38 Body mass index [BMI] 38.0-38.9, adult
CPT/HCPCS: 36415; 71045; 80053; 81001; 82728; 82962; 83605; 83735; 83880; 84100; 84145; 84484; 85025; 85379; 85610; 85730; 86140; 87040; 87086; 87449; 87633; 87641; 92526; 92610; 93005; 94618; 97110; 97116; 97162; 97166; 97530; 97535; 99251; 99285; J7030; J7040; J7050; J7120; A4216; G0463

== ENCOUNTER 2020-02-17 13:30 | Inpatient (IN) | payer MEDICARE, MEDICAID, SELFPAY ==
[2018-03-15 12:56] VITALS: BMI 37.7
[2020-02-13 14:02] VITALS: BMI 34.2
[2020-02-17] VITALS (35 sets, daily range): BP systolic 59–166; BP diastolic 44–103; PULSE 51–80; RESP 8–19; TEMP 35.6–36.8; O2SAT 92–100; BMI 35.2
--- NOTE | 2020-02-17 13:45 | ED.RN ---
AWARE OF BP, NO DR AT BEDSIDE OF THIS TIME.
--- NOTE | 2020-02-17 13:48 | EKG12_ITS ---
Test Reason : SOB Blood Pressure : / mmHG Vent. Rate : 071 BPM Atrial Rate : 267 BPM P-R Int : 000 ms QRS Dur : 096 ms QT Int : 448 ms P-R-T Axes : 000 007 069 degrees QTc Int : 486 ms Somatic/Motion Artifact Atrial fibrillation Prolonged QT Abnormal ECG Confirmed by JEIMY STODDARD, LYNETTE ([id number]), editor publications KRISTIAN BROWN ([id number]) on 02/19/2020 8:47:26 AM Referred By: YOSSI Confirmed By:LYNETTE MUNSON MD
[2020-02-17] MEDS: 0.9% Normal Saline 1,000 ML 999 ML IV ×3 (13:56→17:58)
--- NOTE | 2020-02-17 14:04 | ED.VIS.GEN ---
History of Present Illness Chief Complaint: Shortness of Breath Informant: Patient Narrative: Patient is a 69-year-old male who presents to the emergency department for abnormal vital signs. Patient lives at home and has a health aide who noticed she was hypoxic, hypotensive. Patient was recently discharged from the hospital 3 days ago for coronavirus infection. Patient otherwise states he feels well. He has had a mild cough that is been nonproductive. Denies any fevers or chills. Denies any chest pain or shortness of breath. Denies any abdominal pain or nausea/vomiting. No diarrhea. States he has not been eating or drinking well lately. No calf tenderness or leg pain. He denies a smoking history. He is on 4 L of oxygen at baseline. Past Medical History - Allergies and Home Meds Allergies/Adverse Reactions: Allergies hydrochlorothiazide Allergy (Verified 02/17/20 13:33) Unknown Penicillins [PCN] Allergy (Verified 02/17/20 13:33) Swelling pioglitazone [From Actos] Allergy (Verified 02/17/20 13:33) Unknown gemfibrozil Adverse Reaction (Severe, Verified 02/17/20 13:33) caused very high blood glucose oxycodone [From OxyIR] Adverse Reaction (Verified 02/17/20 13:33) Other pravastatin Adverse Reaction (Verified 02/17/20 13:33) Pain in joints Primary Care Physician: Juve Reed MD [Primary Care Provider] - Prior records reviewed: Yes Past Medical History: - - Coronary artery disease, dementia, hypertension Surgical History: coronary bypass surgery, total knee arthroplasty - L, - - coronary a. stent Smoking Status: Never smoker - Family History Maternal Family History: Family History (Last Reviewed 02/12/20 @ 19:[address] Tari Ray DO) Father Myocardial infarction ICD (implantable cardioverter-defibrillator) in place Brother Heart disease Family History: Reports: No pertinent history Review of Systems All systems negative except as indicated General: Denies: Chills, Fever, Sweats Eyes: Denies: Visual changes - bilaterally, Diplopia ENT: Denies: Rhinorrhea, Sore throat Cardiovascular: Denies: Chest pain, Palpitations Respiratory: Reports: Cough. Denies: Dyspnea, Dyspnea on exertion Gastrointestinal: Denies: Abdominal pain, Nausea, Vomiting, Diarrhea Genitourinary: Denies: Dysuria, Hematuria, Frequency Musculoskeletal: Denies: Back pain, Extremity Pain Skin: Denies: Rash, Wounds Neurological: Denies: Headache, Weakness, Numbness Physical Exam Vital Signs/Narrative: Vital Signs Temp Pulse Resp BP Pulse Ox 02/17/20 13:53 80 18 59/49 L 94 02/17/20 13:33 98.1 F 79 19 H 124/103 H 96 Inital Vital Signs reviewed: Yes General: Well nourished, Well developed, No Acute Distress, - - Ill-appearing Head: Normocephalic, Atraumatic Eyes: Perrl, EOMI ENT: Moist mucous membranes, No rhinorrhea Neck: Supple, Nontender Cardiovascular: Regular rate, Regular rhythm, No murmurs Respiratory: No distress, Chest nontender, Diminished, Decreased Air Movement Abdomen: Soft, Nontender, Nondistended, Normal bowel sounds Back: Nontender, Normal Inspection Extremities: Nontender, No edema. Negative for: Calf Tenderness Skin: Normal color, No rash Neurological: Alert, Normal Strength, Normal Sensation Psychological: Normal affect, Normal Mood Diagnostic/Tx/Re-eval - EKG Initial EKG Interpretation: - - Rate of 71 bpm and an irregular rhythm. He has a QTC of 485. He has normal axis. No significant ST elevations or depressions. There is some artifact skewing V1 and V2. - Medical Decision Making Patient presents to the emergency department after he is found to have a low blood pressure and hypoxic. Upon arrival to the emergency department he does have low blood pressure but satting well on his baseline oxygen. He is coronavirus positive. Will start IV fluids as he has not had much to eat or drink lately. Lab work and repeat EKG/chest x-ray are being obtained. Patient's lab work shows his white blood cell count to be mildly elevated compared to his previous hospital stay. His dyspnea troponin is mildly elevated which was not previously. He does have a lactic acidosis. He has an PATRICK which appears to be similar to his previous lab draw although that was new from the previous hospital stay. Seems to be worsening symptoms for his Covid pneumonia. He was hypotensive upon arrival although mentating. He did respond to 2 L of normal saline. We were attempting to be cautious given the history of Covid pneumonia. His map has been above 65 after IV fluids. Will bring him into the hospital for further evaluation and management. I did discuss with the hospitalist for potentially starting antibiotics but at this time will hold off. ED Disposition - Plan for ED Patient: Disposition: Acute Care Hospital [facility] Diagnosis: Pneumonia due to COVID-19 virus, Hypotension, Elevated troponin, Lactic acidosis, PATRICK (acute kidney injury) Referrals: Juve Reed MD [Primary Care Provider] -
[2020-02-17 14:07] LABS: Absolute Lymphocyte Count 2.69 X10^3/uL (0.83-4.51); Absolute Neutrophil Count 7.7 X10^3/uL (2.0-7.7); Basophil# 0.04 X10^3/uL; Basophil% 0.4 % (0-1); Eosinophil# 0.21 X10^3/uL; Eosinophils% 1.9 % (0-5); Hematocrit 35.1 % (40-54); Hemoglobin 11.3 g/dL (13.0-16.5); Lymphocyte # 2.69 X10^3/ul (4.0); Lymphocyte % 23.8 % (19-41); Mean Corp Hgb Conc 32.2 g/dL (32-36); Mean Corpuscular Volume 93.1 fL (80-94); Mean Platelet Vol. 13.2 fl (6.2-12.0); Monocyte# 0.52 X10^3/uL; Monocyte% 4.6 % (0-10); NRBC Flagged by Analyzer 0.2 % (0-5); Neutrophil # 7.69 X10^3/uL (2.7-7.7); Neutrophil % 67.9 % (47-70); Platelet Count 367 K/mm3 (150-450); RBC Distribution Width CV 12.9 % (11.6-14.6); RBC Distribution Width SD 43.9 fl (35.1-43.9); Red Blood Count 3.77 M/mm3 (4.6-6.2); White Blood Count 11.3 K/mm3 (4.4-11.0)
--- NOTE | 2020-02-17 14:10 | RAD_ITS ---
STUDY: X-RAY CHEST REASON FOR EXAM: Male, 69 years old. COVID POSITIVE. LETHARGIC. TECHNIQUE: Single AP portable view of the chest. COMPARISON: Comparison is made with prior study dated 02/12/2020. FINDINGS: EKG electrodes are seen. Once again, there is evidence of multifocal infiltrates in both lungs. There has been essentially no change. There is no demonstrated pleural abnormality. Sternal cerclage wires and vascular clips are present from a prior sternotomy and coronary artery bypass graft procedure (CABG). Normal mediastinum and sami. Normal visualized pulmonary arteries. There is atherosclerotic calcification of the aortic arch with tortuosity. There are diffuse degenerative changes of the visualized thoracic spine. Normal visualized ribs, clavicles, and shoulders. There is no demonstrated abnormality of the visualized soft tissue structures of the upper abdomen. RAD/Chest 1 View (Portable) IMPRESSION: Stable bilateral multifocal infiltrates in both lungs. Electronically Signed: Randy Wade, at 14:27 EST , Service support ,
[2020-02-17 14:23] LABS: ALB/GLOB Ratio 0.5 RATIO (0.9-2.4); AST(SGOT) 29 U/L (15-37); Alanine Aminotransfer ALT/SGPT 40 U/L (16-61); Albumin, Serum 2.2 g/dL (3.2-5.0); Alkaline Phosphatase 66 U/L (45-117); Anion Gap 5 (5-15); BUN 63 mg/dL (7-18); BUN/Creat Ratio 32.3 RATIO (10-20); Calcium,Total 9.7 mg/dL (8.5-10.1); Chloride 106 mmol/L (98-107); Creatinine, Serum 1.95 mg/dL (0.70-1.30); EST Glomerular Filtration Rate 36 mL/min (>60); Est Glom Filt Rate - Afr Amer 44 mL/min (>60); Estimated Creatinine Clearance 34.59 ml/min; Globulin 4.2 g/dL (2.2-4.2); Glucose 155 mg/dL (74-106); Potassium 4.8 mmol/L (3.5-5.1); Protein, Total 6.4 g/dL (6.4-8.2); Sodium Level 141 mmol/L (136-145)
[2020-02-17 14:43] LABS: Lactic Acid 2.3 mmol/L (0.4-1.9)
--- NOTE | 2020-02-17 14:43 | ED.RN ---
SPOKE WITH . STATED THAT BEFORE PT LEFT HE SAID HE DID NOT WANT THAT BREATHING MACHINE. I ASKED THE IF HE WAS TALKING ABOUT THE BIPAP AND SHE SAID NO HE HAS A CPAP AT HOME. HE MEANS THE TUBE DOWN HIS THROAT. DR ANTONIO INFORMED OF THIS CONVERSATION WITH THE .
--- NOTE | 2020-02-17 15:25 | ED.RN ---
verified with lab that they have received blood cultures x2.
[2020-02-17 17:59] LABS: Reflex Lactate? Y
--- NOTE | 2020-02-17 18:16 | PCM.HP.STD ---
Problem List (1) COVID-19 Status: Acute (2) Mild dehydration Status: Acute (3) Delirium Status: Inactive (4) Dementia Status: Chronic (5) Pneumonia Status: Chronic (6) Acute and chronic respiratory failure with hypoxia Status: Acute (7) Debility Status: Acute (8) PATRICK (acute kidney injury) Status: Acute (9) Transaminitis Status: Inactive (10) Pneumonia due to COVID-19 virus Status: Acute (11) Hypotension Status: Acute (12) Elevated troponin Status: Acute (13) Lactic acidosis Status: Acute (14) History of total left knee replacement Status: Resolved (15) S/P CABG x 3 Status: Resolved Comment: FLANNERY to LAD, SVG to LCX, SVG to PDA: info obtained from cath report, but don't have original surgical report or where performed. (16) Peripheral vascular disease Status: Chronic (17) BMI 38.0-38.9,adult Status: Chronic (18) JOSÉ MIGUEL (obstructive sleep apnea) Status: Chronic Comment: AHI 45.4 (19) History of left heart catheterization Status: Resolved Comment: Segmented LV systolic dysfunction- Moderate; LVEF: by LV gram 55 %; Double vessel CAD of the LAD, LCX; Widely patent FLANNERY To LAD; Occluded SVG to LCX system; Widely patent SVG to PDA. (20) Status post revision of total replacement of left knee Status: Chronic (21) Bradycardia Status: Inactive (22) History of DVT (deep vein thrombosis) Status: Chronic Comment: Patient was on Xarelto for this, is not presently (23) Nonrheumatic tricuspid (valve) insufficiency Status: Chronic Comment: Mild (1+) per echo 02/17/2018 (24) Secondary pulmonary hypertension Status: Chronic Comment: Mild, RVSP 45 mmhg per echo 02/17/2018 (25) Grade II diastolic dysfunction Status: Chronic Comment: Per echo 02/17/2018 (26) Systolic and diastolic CHF, acute Status: Chronic Comment: EF 45-50% per echo February 2018 (27) Stented coronary artery Status: Chronic Comment: JACI of proximal LCX w/3.0 X 38 Promus Syncergy (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 transplanted heart: [place] heart Qualified Code(s): I25.10 - Atherosclerotic heart disease of [place] coronary artery without angina pectoris Comment: JACI of proximal LCX w/3.0 X 38 Promus Syncergy (29) HLD (hyperlipidemia) Status: Chronic Qualifiers: Hyperlipidemia type: unspecified Qualified Code(s): E78.5 - Hyperlipidemia, unspecified (30) HTN (hypertension) Status: Chronic Qualifiers: Hypertension type: essential hypertension Qualified Code(s): I10 - Essential (primary) hypertension (31) Acute blood loss anemia Status: Inactive (32) DM2 (diabetes mellitus, type 2) Status: Chronic History of Present Illness Date of Admission: 02/17/20 Chief Complaint: hypotension The patient is a 69 year old M found by home health aides to be hypoxic and hypotensive. Patient was brought to the emergency room and his blood pressure read at 59/49. Patient received 2 L of IV fluids and blood pressure went to 103/61 but subsequently dropped down to 74/45. Emergency room physician was advised again and plan on giving patient other liter of IV fluids. Patient had a chest x-ray showed stability of his infiltrate. Patient was admitted from February 02 to the with COVID-19 pneumonia. He presented again from February 11 February 13 and was diagnosed with pneumonia at that time and was on antibiotics for short period of time but those were subsequently discontinued. Patient was discharged with oxygen at that time. Patient was discharged with 7-day course of rivaroxaban. [] Past Medical History Past Medical History (Chronic Problems): Chronic Problems (Last Reviewed 02/12/20 @ 19:[address] Tari Ray, DO) Dementia (Chronic) Pneumonia (Chronic) Peripheral vascular disease (Chronic) BMI 38.0-38.9,adult (Chronic) JOSÉ MIGUEL (obstructive sleep apnea) (Chronic) AHI 45.4 Status post revision of total replacement of left knee (Chronic) History of DVT (deep vein thrombosis) (Chronic) Patient was on Xarelto for this, is not presently Nonrheumatic tricuspid (valve) insufficiency (Chronic) Mild (1+) per echo 02/17/2018 Secondary pulmonary hypertension (Chronic) Mild, RVSP 45 mmhg per echo 02/17/2018 Grade II diastolic dysfunction (Chronic) Per echo 02/17/2018 Systolic and diastolic CHF, 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% per echo February 2018 Stented coronary artery (Chronic 03/15/18) JACI of proximal LCX w/3.0 X 38 Promus Syncergy Atherosclerotic heart disease of [place] coronary artery without angina pectoris (Chronic 03/15/18) JACI of proximal LCX w/3.0 X 38 Promus Syncergy HLD (hyperlipidemia) (Chronic) HTN (hypertension) (Chronic) DM2 (diabetes mellitus, type 2) (Chronic) Medical History: Medical History (Last Reviewed 02/17/20 @ 18:[address] Clarence Castro, DO) History of DVT (deep vein thrombosis) (Chronic) Z86.718 Patient was on Xarelto for this, is not presently Nonrheumatic tricuspid (valve) insufficiency (Chronic) I36.1 Mild (1+) per echo 02/17/2018 Secondary pulmonary hypertension (Chronic) Mild, RVSP 45 mmhg per echo 02/17/2018 Grade II diastolic dysfunction (Chronic) I51.9 Per echo 02/17/2018 Systolic and diastolic CHF, acute (Chronic) I50.41 EF 45-50% per echo February 2018 Atherosclerotic heart disease of [place] coronary artery without angina pectoris (Chronic) Onset Date: 03/15/18 I25.10 JACI of proximal LCX w/3.0 X 38 Promus Syncergy HLD (hyperlipidemia) (Chronic) E78.5 HTN (hypertension) (Chronic) I10 Acute blood loss anemia (Inactive) D62 DM2 (diabetes mellitus, type 2) (Chronic) E11.9 Non-STEMI (non-ST elevated myocardial infarction) (Inactive) Onset Date: 03/15/18 I21.4 Allergies hydrochlorothiazide Allergy (Verified 02/17/20 13:33) Unknown Penicillins [PCN] Allergy (Verified 02/17/20 13:33) Swelling pioglitazone [From Actos] Allergy (Verified 02/17/20 13:33) Unknown gemfibrozil Adverse Reaction (Severe, Verified 02/17/20 13:33) caused very high blood glucose oxycodone [From OxyIR] Adverse Reaction (Verified 02/17/20 13:33) Other pravastatin Adverse Reaction (Verified 02/17/20 13:33) Pain in joints Home Medications: Ambulatory Orders Medication Instructions Recorded Aspirin [Aspirin EC] 81 mg PO DAILY 03/15/17 Bupropion HCl [Bupropion HCl ER] 100 mg PO LUNCH 03/15/17 Gabapentin [Neurontin] 300 mg PO TID 03/15/17 Multivitamin [Multiple Vitamins] 1 ea PO DAILY 03/15/17 buPROPion XL [Wellbutrin Xl] 300 mg PO 0800 03/15/17 Quetiapine Fumarate [Seroquel] 25 mg PO BID 01/24/18 metoprolol tartrate 25 mg tablet 12.5 mg PO QHS tab 07/13/18 insulin aspar prot-insulin aspart See Rx Instructions SUBCUT .ac ml 10/05/18 100 unit/mL (70-30) subcutaneous pen nitroglycerin 0.4 mg sublingual 0.4 mg SUBLINGUAL Q5-15M PRN #25 10/05/18 tablet tab icosapent ethyl 1 gram capsule 2 g PO BID #120 cap 08/23/19 donepezil 10 mg tablet 10 mg PO BID tab 09/09/19 duloxetine 30 mg capsule,delayed 30 mg PO BID cap 09/09/19 release sprinkle empagliflozin 25 mg tablet 25 mg PO DAILY 09/09/19 Cholecalciferol (Vitamin D3) 2,000 unit PO DAILY 02/03/20 [Vitamin D3] Clopidogrel Bisulfate [Plavix] 75 mg PO DAILY 02/03/20 Furosemide [Lasix] 20 mg PO DAILY 02/03/20 Isosorbide Mononitrate [Isosorbide 120 mg PO BID 02/03/20 Mononitrate ER] Lisinopril 20 mg PO BID 02/03/20 Rivaroxaban [Xarelto] 10 mg PO DAILY #14 tab 02/14/20 Surgical History: Surgical History (Last Reviewed 02/17/20 @ 18:[address] Clarence Castro, DO) History of total left knee replacement (Resolved) Onset Date: 02/15/18 Z96.652 S/P CABG x 3 (Resolved) Onset Date: 03/10/15 Z95.1 FLANNERY to LAD, SVG to LCX, SVG to PDA: info obtained from cath report, but don't have original surgical report or where performed. History of left heart catheterization (Resolved) Onset Date: 11/07/18 Z98.890 Segmented LV systolic dysfunction- Moderate; LVEF: by LV gram 55 %; Double vessel CAD of the LAD, LCX; Widely patent FLANNERY To LAD; Occluded SVG to LCX system; Widely patent SVG to PDA. Stented coronary artery (Chronic) Onset Date: 03/15/18 Z95.5 JACI of proximal LCX w/3.0 X 38 Promus Syncergy Surgical History: coronary bypass surgery, total knee arthroplasty - L, - - coronary a. stent Psychiatric History: No pertinent psych hx Smoking Status: Never smoker - *Family History Maternal Family History: Family History (Last Reviewed 02/17/20 @ 18:[address] Clarence Castro DO) Father Myocardial infarction ICD (implantable cardioverter-defibrillator) in place Brother Heart disease History Items: No pertinent history Review of Systems Constitutional: Reports: Malaise, Weakness. Denies: Anorexia, Chills, Fever HEENT: Denies: Head Aches, Sinus Congestion, Sinus Drainage Cardiovascular: Denies: Chest Pain, Palpitations Respiratory: Reports: Cough, Shortness of Breath Gastrointestinal: Denies: Abdominal Pain, Nausea, Vomiting Genitourinary: Denies: Dysuria Hematologic/ Lymphatic: Denies: Easy Bruising, Easy Bleeding, Hx of blood clot Comment: All review of systems were negative except as mentioned above in the history of present illness and the other review of systems. VTE Information - Inpt Only VTE Present on Admission: No VTE Mechan Device Prophylaxis: None VTE Pharm Prophylaxis ordered?: No Reason prophylaxis not ordered:: Treatment Not Indicated Patient Problems: Active and Suspected Problems (Last Reviewed 02/12/20 @ 19:[address] Tari Ray DO) PATRICK (acute kidney injury) (Acute) Pneumonia due to COVID-19 virus (Acute) Hypotension (Acute) Elevated troponin (Acute) Lactic acidosis (Acute) - Physical Exam Vitals/I&O's: Vital Signs Temp Pulse Resp BP Pulse Ox 36.1 C L 70 18 90/53 L 99 02/17/20 17:54 02/17/20 17:54 02/17/20 17:54 02/17/20 17:54 02/17/20 17:54 Oxygen Flow Rate (L/min) 4 Oxygen Delivery Method Nasal Cannula Weight: 105 kg Body Mass Index (BMI) 35.2 Finger Stick Blood Glucose 272 Intake and Output for Last 24 Hours 02/15/20 02/16/20 02/17/20 23:59 23:59 23:59 Intake Total 1999 Balance 1999 General: Alert, No apparent distress, - - Listless. Afebrile. HEENT: Atraumatic, Normocephalic Oral: Moist Mucosa, No Gingival or Mucosal Lesions/ Ulcerations Neck: No Nodes, Thyroid Normal Size and Texture Lungs: Clear to auscultation, Normal air movement, No rhonchi, No wheeze, No rales Cardiovascular: Regular rate, Regular Rhythm, Normal S1, Normal S2, No murmurs Abdomen: Bowel Sounds Present, Soft, Non Tender, Non-Distended, No Hepato-splenomegaly Extremities: No edema, No Calf Tenderness Skin: No rashes, No breakdown Neurological: Muscle tone normal, Coordination normal Psych/Mental Status: Appropriate, Flat Affect Laboratory Results 02/17/20 13:50: WBC 11.3 H, RBC 3.77 L, Hgb 11.3 L, Hct 35.1 L, MCV 93.1, MCH 30.0, MCHC 32.2, RDW Std Deviation 43.9, RDW Coeff of Smooth 12.9, Plt Count 367, MPV 13.2 H, Immature Gran % (Auto) 1.400 H, Neut % (Auto) 67.9, Lymph % (Auto) 23.8, Mitchell % (Auto) 4.6, Eos % (Auto) 1.9, Baso % (Auto) 0.4, Absolute Neuts (auto) 7.7, Absolute Lymphs (auto) 2.69, Nucleated RBC % 0.2 02/17/20 13:50: Sodium 141, Potassium 4.8, Chloride 106, Carbon Dioxide 30.0, Anion Gap 5, BUN 63 H, Creatinine 1.95 H, Estim Creat Clear Calc 34.59, Est GFR (MDRD) Af Amer 44 L, Est GFR (MDRD) Non-Af 36 L, BUN/Creatinine Ratio 32.3 H, Glucose 155 H, Calcium 9.7, Total Bilirubin 0.40, AST 29, ALT 40, Alkaline Phosphatase 66, Troponin I 0.098 H, Total Protein 6.4, Albumin 2.2 L, Globulin 4.2, Albumin/Globulin Ratio 0.5 L 02/17/20 13:50: Lactic Acid 2.3 H* 02/17/20 13:50: B-Natriuretic Peptide 69.0 Chest x-ray personally reviewed and showed bilateral patchy infiltrates. Similar to 11 February. Current Medications Sodium Chloride () 1,000 mls @ 999 mls/hr IV .Q1H1M ONE Stop: 02/17/20 18:55 Last Admin: 02/17/20 17:58 Dose: 999 mls/hr Documented by: Assessment/Plan All Active Problems (Last Reviewed 02/12/20 @ 19:[address] Tari Ray, DO) COVID-19 (Acute) Mild dehydration (Acute) Acute and chronic respiratory failure with hypoxia (Acute) Debility (Acute) PATRICK (acute kidney injury) (Acute) Pneumonia due to COVID-19 virus (Acute) Hypotension (Acute) Elevated troponin (Acute) Lactic acidosis (Acute) History of total left knee replacement (Resolved 02/15/18) S/P CABG x 3 (Resolved 03/10/15) History of left heart catheterization (Resolved 11/07/18) Abdominal discomfort (Resolved) Chest pain (Resolved) Hypertensive urgency (Resolved) 1. Shock: Suspect, given the patient's acute kidney injury, that is likely hypovolemic. Though cannot rule out obstructive at this time though that would seem to be unlikely as patient was already on rivaroxaban. Patient to receive another liter of IV fluids before further determination as to the patient's status before going to the floor. Patient continues to remain hypotensive and patient require going to the ICU and will require central IV access for pressor support. If not then patient can go to the medical cohorts for progressive care unit. Complicating the picture as patient is on furosemide, lisinopril, metoprolol tartrate. Check duplex. 2. Acute hypoxic respiratory failure: Secondary to COVID-19. Unable to do a CT angiogram given the patient's acute kidney injury. Patient already anticoagulated with rivaroxaban. 3. Acute kidney injury: Baseline creatinine is around 1.16. Currently 1.95. Patient to receive IV fluids. Hold lisinopril and furosemide. 4. COVID-19: Patient has been dexamethasone. Will consult infectious disease for further recommendations. 5. Elevated troponin: likely not an acute ischemic event, but rather demand from above, but may also be skewed upwards given PATRICK 6. Lactic acidosis: likely 2/2 shock. monitor. Echocardiogram from November 2019 showed an EF of 50-55% with improved RVSP from 45 to 29. Hold on repeat echo unless condition warrants. Consider cardiology consult if troponins go up considerably. 7. VTE prophylaxis: Not indicated as patient is already anticoagulated. Inpatient E&M: 96002 Init Hosp L3
[2020-02-17 19:31] LABS: Lactic Acid 1.5 mmol/L (0.4-1.9)
--- NOTE | 2020-02-17 20:00 | ED.RN ---
spoke with , Tiffanie, on phone for pt update.
[2020-02-17] MEDS: Lactated Ringers 1,000 ML 100 ML IV (20:20)
--- NOTE | 2020-02-17 20:43 | VDLE_ITS ---
Reason For Study: Shortness of breath RIGHT LEFT GSV previously harvested. GSV previously harvested. CFV, SFJ, FV and PopV are compressible. CFV, SFJ, FV and PopV are compressible. T/P Trunk is compressible. T/P Trunk is compressible. PTV is compressible. PTV is compressible. RT PerV is compressible. LT PerV is compressible. Procedure This is a venous duplex using B-mode, color flow and spectral Doppler. Exam performed portable in ICU/CCU. The exam was abbreviated due to the COVID 19 protocol. A preliminary report was called and/or faxed to [facility] [employer]. Interpretation Summary No evidence for acute deep venous thrombosis bilateral lower extremities Harvested bilateral great saphenous vein COVID-19 protocol utilized Ordering Physician: Clarence Castro Referring Physician: Juve Reed Performed By: Vilma Paige RVT
--- NOTE | 2020-02-17 20:47 | NURSING ---
Pt arrived to floor 20:15 on O2 and engine monitor. Pt transferred to bed with two assist, stand and pivot, without incident. Pt answered all questions appropriately and understands isolation precautions for COVID. Safety ensured, bed low, call light in reach, bed alarm on, camera operational. Lights dimmed and environment comfort measure per pt request.
[2020-02-17] MEDS: Enoxaparin 120 MG/0.8 ML Syringe 110 MG SC (21:34)
[2020-02-17] MEDS: dexAMETHasone 10 MG/ML Vial 6 MG IV (21:34)
--- NOTE | 2020-02-17 22:01 | NURSING ---
Checked blood sugar. 62mg/dl. Pt alert, given 240ml orange juice and provided cereal for snack. Pt states he hadn't eaten all day.
--- NOTE | 2020-02-17 22:26 | NURSING ---
Recheck of Blood sugar 82mg/dl after orange juice and Cheerios in milk. Will continue to monitor.
[2020-02-17 23:30] LABS: Bedside Glucose 82 mg/dL (70-110)
[2020-02-17 23:30] LABS: Bedside Glucose 62 mg/dL (70-110)
[2020-02-18] VITALS (32 sets, daily range): BP systolic 93–155; BP diastolic 40–107; PULSE 57–118; RESP 9–18; TEMP 36.1–37; O2SAT 90–100; BMI 35.2
[2020-02-18] MEDS: 0.9% Saline Lock 10 ML Syringe IV (02:52)
[2020-02-18 05:40] LABS: Absolute Lymphocyte Count 1.04 X10^3/uL (0.83-4.51); Absolute Neutrophil Count 12.2 X10^3/uL (2.0-7.7); Basophil# 0.02 X10^3/uL; Basophil% 0.1 % (0-1); Eosinophil# 0.03 X10^3/uL; Eosinophils% 0.2 % (0-5); Hematocrit 31.5 % (40-54); Lymphocyte # 1.04 X10^3/ul (4.0); Lymphocyte % 7.6 % (19-41); Mean Corp Hgb Conc 31.7 g/dL (32-36); Mean Corpuscular Hgb 29.4 pg (27.0-32.0); Mean Corpuscular Volume 92.6 fL (80-94); Mean Platelet Vol. 13.4 fl (6.2-12.0); Monocyte# 0.18 X10^3/uL; Monocyte% 1.3 % (0-10); NRBC Flagged by Analyzer 0 % (0-5); Neutrophil # 12.24 X10^3/uL (2.7-7.7); Neutrophil % 89.6 % (47-70); POSITIVE MORPHOLOGY YES; Platelet Count 298 K/mm3 (150-450); RBC Distribution Width SD 43.8 fl (35.1-43.9); White Blood Count 13.7 K/mm3 (4.4-11.0)
[2020-02-18 05:41] LABS: Differential Indicated SCAN CRITERIA MET
[2020-02-18 05:49] LABS: ALB/GLOB Ratio 0.5 RATIO (0.9-2.4); AST(SGOT) 26 U/L (15-37); Alanine Aminotransfer ALT/SGPT 35 U/L (16-61); Albumin, Serum 1.9 g/dL (3.2-5.0); Alkaline Phosphatase 61 U/L (45-117); Anion Gap 5 (5-15); BUN 54 mg/dL (7-18); BUN/Creat Ratio 53.5 RATIO (10-20); Calcium,Total 8.2 mg/dL (8.5-10.1); Chloride 110 mmol/L (98-107); Creatinine, Serum 1.01 mg/dL (0.70-1.30); EST Glomerular Filtration Rate 78 mL/min (>60); Est Glom Filt Rate - Afr Amer 94 mL/min (>60); Estimated Creatinine Clearance 66.78 ml/min; Globulin 3.7 g/dL (2.2-4.2); Glucose 196 mg/dL (74-106); Potassium 5.5 mmol/L (3.5-5.1); Protein, Total 5.6 g/dL (6.4-8.2); Sodium Level 140 mmol/L (136-145)
[2020-02-18 06:00] LABS: Differential Comment SCANNED
[2020-02-18 06:01] LABS: Platelet Estimate ADEQUATE (ADEQ); Platelet Morphology CLUMPED
[2020-02-18] MEDS: Lactated Ringers 1,000 ML 100 ML IV ×2 (06:04→16:02)
--- NOTE | 2020-02-18 06:48 | PCM.PN.HOSP ---
Patient Problems: Active and Suspected Problems (Last Reviewed 02/17/20 @ 18:[address] Clarence Castro, DO) COVID-19 (Acute) Mild dehydration (Acute) Acute and chronic respiratory failure with hypoxia (Acute) Debility (Acute) PATRICK (acute kidney injury) (Acute) Pneumonia due to COVID-19 virus (Acute) Hypotension (Acute) Elevated troponin (Acute) Lactic acidosis (Acute) Subjective: Patient overnight able to come off of norepinephrine with improvement in his blood pressure and mental status. Patient this morning notes feeling improved, feels as though he is back to his baseline with no complaints of fever, chills, nausea, emesis, abdominal pain, chest pain or dyspnea. Patient urinalysis was performed to assure no etiology for infection and was unremarkable. Per discussion with patient who was contacted she notes that he frequently has low blood pressures and attributes it to being off of the steroids. He has never had any formal cortisol testing. Patient denies fevers, chills, nausea, emesis, abdominal pain, chest pain or dyspnea. Objective: Physical Examination: General: awake, alert, oriented x 3 occluding self, person, place and recent events and cooperative, seated upright in the ICU bed in no apparent distress. Skin: normal color, turgor, no icterus, cyanosis except occasional staged ecchymoses. HEENT: AT/NC, EOMI, PERRLA, mildly dry MM, no carotid bruits or JVD noted. Lungs: Diminished, improved effort, moderate decrease BL bases, no rales, ronchi or wheezing. Heart: Regular rate and rhythm; no gallop, rub audible. Abdomen: soft, NTTP, ND, normal BS, no HSM. Extremities: no cyanosis, clubbing, or edema. Neurological: patient awake, alert, oriented as noted; cognitive function improved, suspect near baseline intact; pupils equally reactive to light and accomodation; cranial nerves II-XII grossly normal, moving all 4 extremities, no focal deficits, strength improving, moderately global decreased. Psychiatric: affect appears mildly fatigued but improved otherwise normal, no acute evidence of depressive or anxiety feelings. Vitals/I&O's: Vital Signs Temp Pulse Resp BP Pulse Ox 97.3 F L 65 17 116/60 98 02/18/20 06:00 02/18/20 06:00 02/18/20 06:00 02/18/20 06:00 02/18/20 06:00 Oxygen Flow Rate (L/min) 2 Oxygen Delivery Method Nasal Cannula Weight: 231 lb 11.293 oz Body Mass Index (BMI) 35.2 Finger Stick Blood Glucose 272 Intake and Output for Last 24 Hours 02/16/20 02/17/20 02/18/20 23:59 23:59 23:59 Intake Total 3731.92 / 3744.99 747.71 / 747.71 Output Total 120 / 120 1580 / 1580 Balance 3611.92 / 3624.99 -832.29 / -832.29 Laboratory Results 02/17/20 13:50: WBC 11.3 H, RBC 3.77 L, Hgb 11.3 L, Hct 35.1 L, MCV 93.1, MCH 30.0, MCHC 32.2, RDW Std Deviation 43.9, RDW Coeff of Smooth 12.9, Plt Count 367, MPV 13.2 H, Immature Gran % (Auto) 1.400 H, Neut % (Auto) 67.9, Lymph % (Auto) 23.8, Woodward % (Auto) 4.6, Eos % (Auto) 1.9, Baso % (Auto) 0.4, Absolute Neuts (auto) 7.7, Absolute Lymphs (auto) 2.69, Nucleated RBC % 0.2 02/17/20 13:50: Sodium 141, Potassium 4.8, Chloride 106, Carbon Dioxide 30.0, Anion Gap 5, BUN 63 H, Creatinine 1.95 H, Estim Creat Clear Calc 34.59, Est GFR (MDRD) Af Amer 44 L, Est GFR (MDRD) Non-Af 36 L, BUN/Creatinine Ratio 32.3 H, Glucose 155 H, Calcium 9.7, Total Bilirubin 0.40, AST 29, ALT 40, Alkaline Phosphatase 66, Troponin I 0.098 H, Total Protein 6.4, Albumin 2.2 L, Globulin 4.2, Albumin/Globulin Ratio 0.5 L 02/17/20 13:50: Lactic Acid 2.3 H* 02/17/20 13:50: B-Natriuretic Peptide 69.0 02/17/20 18:15: Lactic Acid 1.5 02/17/20 21:57: POC Glucose 62 L 02/17/20 22:25: POC Glucose 82 02/18/20 04:45: WBC 13.7 H, RBC 3.40 L, Hgb 10.0 L, Hct 31.5 L, MCV 92.6, MCH 29.4, MCHC 31.7 L, RDW Std Deviation 43.8, RDW Coeff of Smooth 13.0, Plt Count 298, MPV 13.4 H, Immature Gran % (Auto) 1.200 H, Neut % (Auto) 89.6 H, Lymph % (Auto) 7.6 L, Woodward % (Auto) 1.3, Eos % (Auto) 0.2, Baso % (Auto) 0.1, Absolute Neuts (auto) 12.2 H, Absolute Lymphs (auto) 1.04, Nucleated RBC % 0, Differential Comment SCANNED, Platelet Estimate ADEQUATE, Plt Morphology Comment CLUMPED 02/18/20 04:45: Sodium 140, Potassium 5.5 H, Chloride 110 H, Carbon Dioxide 25.0, Anion Gap 5, BUN 54 H, Creatinine 1.01, Estim Creat Clear Calc 66.78, Est GFR (MDRD) Af Amer 94, Est GFR (MDRD) Non-Af 78, BUN/Creatinine Ratio 53.5 H, Glucose 196 H, Calcium 8.2 L, Total Bilirubin 0.40, AST 26, ALT 35, Alkaline Phosphatase 61, Total Protein 5.6 L, Albumin 1.9 L, Globulin 3.7, Albumin/Globulin Ratio 0.5 L Current Medications Acetaminophen (Acetaminophen 325 Mg Tablet) 650 mg PO Q6H PRN PRN PRN Reason: Pain Score 1-10/Temp > 100.7 F Aspirin (Aspirin E.C. 81 Mg Tablet) 81 mg PO DAILY [facility] Bupropion HCl (Bupropion (Sr) 100 Mg Tablet.Sa) 100 mg PO LUNCH [facility] [place] Bupropion HCl (Bupropion (Xl) 300 Mg Tablet.Xl) 300 mg PO DAILY [facility] [place] Cholecalciferol (Cholecalciferol (Vit D3) 1,000 Unit (25mcg)) 2,000 unit PO DAILY [facility] [place] Clopidogrel Bisulfate (Clopidogrel Bisulfate 75 Mg Tablet) 75 mg PO DAILY [facility] [place] Dexamethasone Sodium Phosphate (Dexamethasone 10 Mg/Ml Vial) 6 mg IV DAILY [facility] [place] Last Admin: 02/17/20 21:34 Dose: 6 mg Documented by: Dextrose (Dextrose 50%-Water 25 Gm/50 Ml Disp.Syrin) 0 gm IV X1 PRN; Protocol PRN Reason: Hypoglycemia Enoxaparin Sodium (Enoxaparin 120 Mg/0.8 Ml Syringe) 110 mg SC Q12@1000,2200 [facility] [place] Last Admin: 02/17/20 21:34 Dose: 110 mg Documented by: Glucagon (Glucagon 1 Mg/Ml Syringe) 1 mg IM .X1 PRN PRN Reason: Hypoglycemia Lactated Ringer's () 1,000 mls @ 100 mls/hr IV .Q10H [facility] [place] Last Admin: 02/18/20 06:04 Dose: 100 mls/hr Documented by: Norepinephrine Bitartrate 8 mg (/ Sodium Chloride) 250 mls @ 9.375 mls/hr CONT INF .[id number] [facility] [place]; Protocol Last Titration: 02/18/20 06:00 Dose: 0 mcg/min, 0 mls/hr Documented by: Sodium Chloride () 250 mls @ 15 mls/hr IV .[id number] PRN PRN Reason: Saline Flush Sodium Chloride () 250 mls @ 15 mls/hr IV .[id number] PRN PRN Reason: Additional IVPB Infusion Insulin Human Lispro (Insulin Lispro 100 Unit/Ml Insuln.Pen) 0 unit SC TIDAC [facility]; Protocol Multivitamins (Multivitamins,Therapeutic Tablet) 1 tablet PO DAILY [facility] [place] Non-Formulary Medication (Icosapent Ethyl [Vascepa]) 2 g PO BID SILKE Ondansetron HCl (Ondansetron 4 Mg/2 Ml Vial) 4 mg IV Q8H PRN PRN PRN Reason: NAUSEA/VOMITING Sodium Chloride (0.9% Saline Lock 10 Ml Syringe) 10 - 40 ml IV UD PRN PRN Reason: SALINE FLUSH Last Admin: 02/18/20 02:52 Dose: 10 ml Documented by: STROKE Vital Signs/Narrative: Vital Signs Temp Pulse Resp BP Pulse Ox 02/18/20 06:00 97.3 F L 65 17 116/60 98 02/18/20 05:00 97.4 F L 67 13 111/71 98 02/18/20 04:00 66 16 110/56 L 98 02/18/20 03:31 61 02/18/20 03:00 97.3 F L 62 14 145/107 H 97 Medical Necessity - Tobacco Use Smoking Status: Never smoker Assessment/Plan All Active Problems (Last Reviewed 02/17/20 @ 18:[address] Clarence Castro, DO) COVID-19 (Acute) Mild dehydration (Acute) Acute and chronic respiratory failure with hypoxia (Acute) Debility (Acute) PATRICK (acute kidney injury) (Acute) Pneumonia due to COVID-19 virus (Acute) Hypotension (Acute) Elevated troponin (Acute) Lactic acidosis (Acute) History of total left knee replacement (Resolved 02/15/18) S/P CABG x 3 (Resolved 03/10/15) History of left heart catheterization (Resolved 11/07/18) Abdominal discomfort (Resolved) Chest pain (Resolved) Hypertensive urgency (Resolved) The patient is a 69 y/o M w/ PMHx: CKD stage III, CAD s/p CABG x 3, HTN, HLD, Diabetes mellitus type II, Obesity, JOSÉ MIGUEL, PVD, Hx VTE, Pulmonary HTN, Chronic combined CHF, Dementia unclear type with unclear behavioral disturbance history, recent COVID-19 pneumonia with complicated hospitalization course and readmissions, recently discharged on 02/14/20 following admission for severe weakness secondary to COVID pneumonia who re-presented to the [facility] ED on 02/17/20 secondary to home health aid noted hypotension and hypoxia. 1. Hypovolemic shock with lactic acidosis: Patient with no obvious evidence of infection although septic shock was a consideration, no antibiotics have been administered and no current evidence of infection, urinalysis unremarkable, pending infectious disease evaluation however if patient does develop fever or if infectious disease feels appropriate would initiate antibiotic broad-spectrum therapy, continue judicious fluids, holding patient lisinopril, metoprolol and Lasix regimen, given recurrent presentation with hypotension will also obtain cortisol stim testing to assure adrenal insufficiency not a component, currently maintained on IV Decadron, required transient norepinephrine, discontinued since 02/17/2020 evening, remained stable, transition to telemetry medical surgical Covid unit status given this improvement, repeat CBC, CMP in AM. Patient family updated. 2. Acute kidney injury on CKD stage III: Secondary to #1, improving. Admission BUN/Cr 63/1.95, prior baseline creatinine noted to be 1.0-1.1, 02/18/2020 BUN/creatinine 54/1.01, continue to judiciously hydrate, off norepinephrine, holding hypertensive regimen. 3. Chronic hypoxic respiratory failure secondary to recent acute Covid-19 pneumonia: Patient with continued usage of supplemental oxygen, maintain in precautions, infectious disease consulted given representation although suspicious that associated with patient hypertensive regimen which is held currently. Currently restarted Decadron given presentation but again awaiting cortisol stim testing to see if associated with hypotension. 4. Indeterminate cardiac enzyme: Admission troponin 0.098, EKG without acute findings, suspect hypotension related, maintain on telemetry monitoring. 11/13/2019 echocardiogram with mildly dilated LV, EF 50 to 55%, stage II diastolic dysfunction, evidence of regional wall motion abnormalities, mildly enlarged LA, trivial TBI, RVSP 29 mmHg. Once patient clinically improved, out of any precautions and renal function appropriate may be appropriate for follow-up with cardiology for consideration further evaluation. 5. Chronic normocytic anemia: Admission Hgb 11.3, repeat 02/18/20 hgb 10, continue to trend. 6. CAD: Status post CABG x3 FLANNERY to LAD, SVG to LCx, SVG to PDA, continue aspirin, Plavix, not on statin, holding metoprolol as well as lisinopril regimen given initial presentation with hypotension. 7. Hypertension: Patient initially hypotensive upon presentation requiring pressors, currently discontinued, BP currently normal range, will continue to closely monitor and may add back regimen pending further evaluation. As needed IV hydralazine. 8. Hyperlipidemia: Not on regimen, defer to outpatient. 9. Dementia unclear type with unclear behavioral disturbance history: Complicates presentation, maintain on fall precautions, case management consultation for discharge planning although family very adamant about discharging to home once appropriate. Continue low-dose Seroquel and donepezil home regimen. 10. Anxiety and depression: We will continue patient home bupropion, duloxetine regimen. 11. Diabetes mellitus type II with neuropathy: Hold oral home regimen, allow ADA diet, accu checks w/ ISS, will restart patient gabapentin regimen given renal function improvement, hold for sedation. 12. JOSÉ MIGUEL: We will maintain on BiPAP nightly. 13. DVT prophylaxis: SCDs, therapeutic Lovenox w/ pending duplex ultrasound, pending these findings may consider transition back to home Xarelto regimen. 14. CODE STATUS: Full patient's is his healthcare power estate attorney, he does not have a living will in place. Patient and daughter were supposed to have discussed patient's CODE STATUS and notify hospital of their decision from prior admission, will rediscuss with family and maintain full CODE STATUS in interim. Inpatient E&M: 19170 Subs Hosp L3
--- NOTE | 2020-02-18 08:03 | CON.PCM_ITS ---
Problem List (1) COVID-19 Status: Acute (2) Mild dehydration Status: Acute (3) Delirium Status: Inactive (4) Dementia Status: Chronic (5) Debility Status: Acute (6) PATRICK (acute kidney injury) Status: Acute (7) Transaminitis Status: Inactive (8) Hypotension Status: Acute (9) Lactic acidosis Status: Acute (10) History of total left knee replacement Status: Resolved (11) S/P CABG x 3 Status: Resolved Comment: FLANNERY to LAD, SVG to LCX, SVG to PDA: info obtained from cath report, but don't have original surgical report or where performed. 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 (15) History of DVT (deep vein thrombosis) Status: Chronic Comment: Patient was on Xarelto for this, is not presently (16) Secondary pulmonary hypertension Status: Chronic Comment: Mild, RVSP 45 mmhg per echo 02/17/2018 (17) Grade II diastolic dysfunction Status: Chronic Comment: Per echo 02/17/2018 (18) HLD (hyperlipidemia) Status: Chronic Qualifiers: Hyperlipidemia type: unspecified Qualified Code(s): E78.5 - Hyperlipidemia, unspecified (19) HTN (hypertension) Status: Chronic Qualifiers: Hypertension type: essential hypertension Qualified Code(s): I10 - Essential (primary) hypertension (20) DM2 (diabetes mellitus, type 2) Status: Chronic Reason for Consult Date of Consultation: 02/18/20 Reason for Consultation: Hypotension History of Present Illness: The patient is a 69 year old M, with past medical history listed below, who presented to [facility] on 02/17/2020 secondary to progressive shortness of breath and hypotension. Patient reportedly was seen by the home health aide that noted hypoxia and hypotension, so was transferred to the emergency department for further evaluation. Patient had recently been discharged 3 days previously secondary to coronavirus infection. Patient otherwise reported that he had felt well, but had a mild cough that been nonproductive. This reportedly was not significantly changed since his onset of COVID-19. Patient did not have any fevers or chills. Patient had denied any chest pain, abdominal pain, nausea or vomiting. Patient did report some decreased p.o. intake. Patient reportedly has been on 4 L nasal cannula since his last discharge from the hospital. In the ER, patient was initially noted to have a blood pressure of 59/49 with a pulse of 80. Patient reportedly had appeared ill and was saturating 94% on 4 L nasal cannula. EKG showed an irregular rhythm with a QTC of 485, but no ST changes. Patient was given IV fluids with some improvement. It appears as though the patient received a total of about 3 L of saline with improvement in his map. Hospitalist was consulted and patient was admitted to the intensive care unit for further evaluation. There was discussion about antibiotics, but none had been given. In the intensive care unit, patient was on Levophed peripherally for short period of time. This had been discontinued at approximately 1:45 AM. Blood pressures have remained stable since that time. Patient saturations have also done well on 4 L nasal cannula. This morning, patient states that he is feeling well. Patient does admit to having decreased p.o. intake. Patient is not reporting any sores, nausea or vomiting. Patient did report some dysuria prior to the Hill catheter placement, but had attributed this to his hospitalizations. Patient states he has not had any fever, but does not routinely check his temperature with a thermometer. Patient is seen by Dr. Flores as an outpatient, but we have not been consulted in the previous 3 admissions. Patient has been seen in her outpatient office and was noted to be hypoxic following his first hospitalization with COVID-19. Review of systems otherwise negative from a constitutional, HEENT, respiratory, cardiovascular, GI, genitourinary, musculoskeletal, skin, neurologic, psychiatric and hematologic system unless stated above. Past Medical History Past Medical History (Chronic Problems): Chronic Problems (Last Reviewed 02/17/20 @ 18:[address] 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) History of DVT (deep vein thrombosis) (Chronic) Patient was on Xarelto for this, is not presently Nonrheumatic tricuspid (valve) insufficiency (Chronic) Mild (1+) per echo 02/17/2018 Secondary pulmonary hypertension (Chronic) Mild, RVSP 45 mmhg per echo 02/17/2018 Grade II diastolic dysfunction (Chronic) Per echo 02/17/2018 Systolic and diastolic CHF, 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% per echo February 2018 Stented coronary artery (Chronic 03/15/18) JACI of proximal LCX w/3.0 X 38 Promus Syncergy 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 Clarence Castro, DO) History of DVT (deep vein thrombosis) (Chronic) Z86.718 Patient was on Xarelto for this, is not presently Nonrheumatic tricuspid (valve) insufficiency (Chronic) I36.1 Mild (1+) per echo 02/17/2018 Secondary pulmonary hypertension (Chronic) Mild, RVSP 45 mmhg per echo 02/17/2018 Grade II diastolic dysfunction (Chronic) I51.9 Per echo 02/17/2018 Systolic and diastolic CHF, acute (Chronic) I50.41 EF 45-50% per echo February 2018 Atherosclerotic heart disease of [place] coronary artery without angina pectoris (Chronic) Onset Date: 03/15/18 I25.10 JACI of proximal LCX w/3.0 X 38 Promus Syncergy HLD (hyperlipidemia) (Chronic) E78.5 HTN (hypertension) (Chronic) I10 Acute blood loss anemia (Inactive) D62 DM2 (diabetes mellitus, type 2) (Chronic) E11.9 Non-STEMI (non-ST elevated myocardial infarction) (Inactive) Onset Date: 03/15/18 I21.4 Allergies hydrochlorothiazide Allergy (Verified 02/17/20 13:33) Unknown Penicillins [PCN] Allergy (Verified 02/17/20 13:33) Swelling pioglitazone [From Actos] Allergy (Verified 02/17/20 13:33) Unknown gemfibrozil Adverse Reaction (Severe, Verified 02/17/20 13:33) caused very high blood glucose oxycodone [From OxyIR] Adverse Reaction (Verified 02/17/20 13:33) Other pravastatin Adverse Reaction (Verified 02/17/20 13:33) Pain in joints Home Medications: Ambulatory Orders Medication Instructions Recorded Aspirin [Aspirin EC] 81 mg PO DAILY 03/15/17 Bupropion HCl [Bupropion HCl ER] 100 mg PO LUNCH 03/15/17 Gabapentin [Neurontin] 300 mg PO TID 03/15/17 Multivitamin [Multiple Vitamins] 1 ea PO DAILY 03/15/17 buPROPion XL [Wellbutrin Xl] 300 mg PO 0800 03/15/17 Quetiapine Fumarate [Seroquel] 25 mg PO BID 01/24/18 metoprolol tartrate 25 mg tablet 12.5 mg PO QHS tab 07/13/18 insulin aspar prot-insulin aspart See Rx Instructions SUBCUT .ac ml 10/05/18 100 unit/mL (70-30) subcutaneous pen nitroglycerin 0.4 mg sublingual 0.4 mg SUBLINGUAL Q5-15M PRN #25 10/05/18 tablet tab icosapent ethyl 1 gram capsule 2 g PO BID #120 cap 08/23/19 donepezil 10 mg tablet 10 mg PO BID tab 09/09/19 duloxetine 30 mg capsule,delayed 30 mg PO BID cap 09/09/19 release sprinkle empagliflozin 25 mg tablet 25 mg PO DAILY 09/09/19 Cholecalciferol (Vitamin D3) 2,000 unit PO DAILY 02/03/20 [Vitamin D3] Clopidogrel Bisulfate [Plavix] 75 mg PO DAILY 02/03/20 Furosemide [Lasix] 20 mg PO DAILY 02/03/20 Isosorbide Mononitrate [Isosorbide 120 mg PO BID 02/03/20 Mononitrate ER] Lisinopril 20 mg PO BID 02/03/20 Rivaroxaban [Xarelto] 10 mg PO DAILY #14 tab 02/14/20 Surgical History: Surgical History (Last Reviewed 02/17/20 @ 18:[address] Clarence Castro, DO) History of total left knee replacement (Resolved) Onset Date: 02/15/18 Z96. 652 S/P CABG x 3 (Resolved) Onset Date: 03/10/15 Z95.1 FLANNERY to LAD, SVG to LCX, SVG to PDA: info obtained from cath report, but don't have original surgical report or where performed. History of left heart catheterization (Resolved) Onset Date: 11/07/18 Z98.890 Segmented LV systolic dysfunction- Moderate; LVEF: by LV gram 55 %; Double vessel CAD of the LAD, LCX; Widely patent FLANNERY To LAD; Occluded SVG to LCX system; Widely patent SVG to PDA. Stented coronary artery (Chronic) Onset Date: 03/15/18 Z95.5 JACI of proximal LCX w/3.0 X 38 Promus Syncergy Surgical History: coronary bypass surgery, total knee arthroplasty - L, - - coronary a. stent Psychiatric History: No pertinent psych hx Smoking Status: Never smoker - *Family History Maternal Family History: Family History (Last Reviewed 02/17/20 @ 18:[address] Clarence Castro DO) Father Myocardial infarction ICD (implantable cardioverter-defibrillator) in place Brother Heart disease History Items: No pertinent history Review of Systems Comment: See HPI Patient Problems: Active and Suspected Problems (Last Reviewed 02/17/20 @ 18:[address] Clarence Castro DO) COVID-19 (Acute) Mild dehydration (Acute) Acute and chronic respiratory failure with hypoxia (Acute) Debility (Acute) PATRICK (acute kidney injury) (Acute) Pneumonia due to COVID-19 virus (Acute) Hypotension (Acute) Elevated troponin (Acute) Lactic acidosis (Acute) Objective: Chest x-ray was personally reviewed and shows bilateral pulmonary infiltrates, but these appeared grossly unchanged compared to previous. Patient did have an echocardiogram on November 13, 2019 showing an EF of 55% with focal wall motion abnormalities and stage II diastolic dysfunction. Right ventricular systolic pressure was estimated at 29 mmHg at that time. There was no significant valvular abnormalities reported. This echo reportedly had shown improvement in left ventricular function and pulmonary pressures compared to previous study in 2018. Patient's last pulmonary function test was on February 27, 2019 showing normal spirometry with an elevated RV and poor exhalation time. - Physical Exam Vitals/I&O's: Vital Signs Temp Pulse Resp BP Pulse Ox 36.3 C L 63 9 L 150/81 H 99 02/18/20 07:00 02/18/20 07:39 02/18/20 07:00 02/18/20 07:00 02/18/20 07:00 Oxygen Flow Rate (L/min) 2 Oxygen Delivery Method Nasal Cannula Weight: 105.1 kg Body Mass Index (BMI) 35.2 Finger Stick Blood Glucose 272 Intake and Output for Last 24 Hours 02/16/20 02/17/20 02/18/20 23:59 23:59 23:59 Intake Total 3731.92 / 3744.99 841.04 / 841.04 Output Total 120 / 120 1580 / 1580 Balance 3611.92 / 3624.99 -738.96 / -738.96 General: Alert, Oriented x3, Cooperative, No apparent distress, - - Obese. No conversational dyspnea. HEENT: Atraumatic, PERRLA, EOMI, Normocephalic, - - No scleral icterus or injection noted Oral: Moist Mucosa, No Gingival or Mucosal Lesions/ Ulcerations, - - Crowded posterior pharynx Neck: Supple, No JVD, No Nodes, Trachea Midline Lungs: No rhonchi, No wheeze, No rales, Diminished, - - Symmetric expansion. Cardiovascular: Normal S1, Normal S2, No murmurs, Irregular Rate, No rub noted, No Gallop Abdomen: Bowel Sounds Present, Soft, Non Tender, Non-Distended, Obese Extremities: No clubbing, No cyanosis, No edema, Capillary Refill Less than 3 Seconds Skin: No rashes, No breakdown Musculoskeletal: No Tenderness to Palpation of Joints or Extremities Lymphatic: No Cervical, Supraclavicular, or Inguinal Adenopathy Neurological: Cranial nerves II-XII grossly intact, Neuro grossly intact, Motor Exam 5/5 strength throughout Psych/Mental Status: Normal Affect, Appropriate Laboratory Results 02/17/20 13:50: WBC 11.3 H, RBC 3.77 L, Hgb 11.3 L, Hct 35.1 L, MCV 93.1, MCH 30.0, MCHC 32.2, RDW Std Deviation 43.9, RDW Coeff of Smooth 12.9, Plt Count 367, MPV 13.2 H, Immature Gran % (Auto) 1.400 H, Neut % (Auto) 67.9, Lymph % (Auto) 23.8, [place] % (Auto) 4.6, Eos % (Auto) 1.9, Baso % (Auto) 0.4, Absolute Neuts (auto) 7.7, Absolute Lymphs (auto) 2.69, Nucleated RBC % 0.2 02/17/20 13:50: Sodium 141, Potassium 4.8, Chloride 106, Carbon Dioxide 30.0, Anion Gap 5, BUN 63 H, Creatinine 1.95 H, Estim Creat Clear Calc 34.59, Est GFR (MDRD) Af Amer 44 L, Est GFR (MDRD) Non-Af 36 L, BUN/Creatinine Ratio 32.3 H, Glucose 155 H, Calcium 9.7, Total Bilirubin 0.40, AST 29, ALT 40, Alkaline Phosphatase 66, Troponin I 0.098 H, Total Protein 6.4, Albumin 2.2 L, Globulin 4.2, Albumin/Globulin Ratio 0.5 L 02/17/20 13:50: Lactic Acid 2.3 H* 02/17/20 13:50: B-Natriuretic Peptide 69.0 02/17/20 18:15: Lactic Acid 1.5 02/17/20 21:57: POC Glucose 62 L 02/17/20 22:25: POC Glucose 82 02/18/20 04:45: WBC 13.7 H, RBC 3.40 L, Hgb 10.0 L, Hct 31.5 L, MCV 92.6, MCH 29.4, MCHC 31.7 L, RDW Std Deviation 43.8, RDW Coeff of Smooth 13.0, Plt Count 298, MPV 13.4 H, Immature Gran % (Auto) 1.200 H, Neut % (Auto) 89.6 H, Lymph % (Auto) 7.6 L, [place] % (Auto) 1.3, Eos % (Auto) 0.2, Baso % (Auto) 0.1, Absolute Neuts (auto) 12.2 H, Absolute Lymphs (auto) 1.04, Nucleated RBC % 0, Differential Comment SCANNED, Platelet Estimate ADEQUATE, Plt Morphology Comment CLUMPED 02/18/20 04:45: Sodium 140, Potassium 5.5 H, Chloride 110 H, Carbon Dioxide 25.0, Anion Gap 5, BUN 54 H, Creatinine 1.01, Estim Creat Clear Calc 66.78, Est GFR (MDRD) Af Amer 94, Est GFR (MDRD) Non-Af 78, BUN/Creatinine Ratio 53.5 H, Glucose 196 H, Calcium 8.2 L, Total Bilirubin 0.40, AST 26, ALT 35, Alkaline Phosphatase 61, Total Protein 5.6 L, Albumin 1.9 L, Globulin 3.7, Albumin/Globulin Ratio 0.5 L 02/18/20 07:15: Procalcitonin Pending Current Medications Acetaminophen (Acetaminophen 325 Mg Tablet) 650 mg PO Q6H PRN PRN PRN Reason: Pain Score 1-10/Temp > 100.7 F Aspirin (Aspirin E.C. 81 Mg Tablet) 81 mg PO DAILY [facility] Bupropion HCl (Bupropion (Sr) 100 Mg Tablet.Sa) 100 mg PO LUNCH [facility] Bupropion HCl (Bupropion (Xl) 300 Mg Tablet.Xl) 300 mg PO DAILY [facility] Cholecalciferol (Cholecalciferol (Vit D3) 1,000 Unit (25mcg)) 2,000 unit PO DAILY [facility] Clopidogrel Bisulfate (Clopidogrel Bisulfate 75 Mg Tablet) 75 mg PO DAILY [facility] Dexamethasone Sodium Phosphate (Dexamethasone 10 Mg/Ml Vial) 6 mg IV DAILY [facility] Last Admin: 02/17/20 21:34 Dose: 6 mg Documented by: Dextrose (Dextrose 50%-Water 25 Gm/50 Ml Disp.Syrin) 0 gm IV X1 PRN; Protocol PRN Reason: Hypoglycemia Enoxaparin Sodium (Enoxaparin 120 Mg/0.8 Ml Syringe) 110 mg SC Q12@1000,2200 [facility] Last Admin: 02/17/20 21:34 Dose: 110 mg Documented by: Glucagon (Glucagon 1 Mg/Ml Syringe) 1 mg IM .X1 PRN PRN Reason: Hypoglycemia Lactated Ringer's () 1,000 mls @ 100 mls/hr IV .Q10H [facility] Last Infusion: 02/18/20 07:00 Dose: 100 mls/hr Documented by: Norepinephrine Bitartrate 8 mg (/ Sodium Chloride) 250 mls @ 9.375 mls/hr CONT INF .[id number] [facility]; Protocol Last Titration: 02/18/20 07:00 Dose: 0 mcg/min, 0 mls/hr Documented by: Sodium Chloride () 250 mls @ 15 mls/hr IV .[id number] PRN PRN Reason: Saline Flush Sodium Chloride () 250 mls @ 15 mls/hr IV .[id number] PRN PRN Reason: Additional IVPB Infusion Insulin Human Lispro (Insulin Lispro 100 Unit/Ml Insuln.Pen) 0 unit SC TIDAC [facility]; Protocol Multivitamins (Multivitamins,Therapeutic Tablet) 1 tablet PO DAILY [facility] Non-Formulary Medication (Icosapent Ethyl [Vascepa]) 2 g PO BID SILKE Ondansetron HCl (Ondansetron 4 Mg/2 Ml Vial) 4 mg IV Q8H PRN PRN PRN Reason: NAUSEA/VOMITING Sodium Chloride (0.9% Saline Lock 10 Ml Syringe) 10 - 40 ml IV UD PRN PRN Reason: SALINE FLUSH Last Admin: 02/18/20 02:52 Dose: 10 ml Documented by: Clinical Impression(s) from Imaging Studies Chest X-Ray 02/17/20 14:10 IMPRESSION: Stable bilateral multifocal infiltrates in both lungs. Electronically Signed: Randy Sheri, at 14:27 EST , Service support , Assessment/Plan Active and Suspected Problems (Last Reviewed 02/17/20 @ 18:[address] Clarence Castro, DO) COVID-19 (Acute) Mild dehydration (Acute) Acute and chronic respiratory failure with hypoxia (Acute) Debility (Acute) PATRICK (acute kidney injury) (Acute) Pneumonia due to COVID-19 virus (Acute) Hypotension (Acute) Elevated troponin (Acute) Lactic acidosis (Acute) RECOMMENDATIONS: 1. Obtain UA and urine culture 2. Defer to infectious disease on antibiotics at this point 3. Continue to hold Lasix, lisinopril and Lopressor 4. Wean oxygen as tolerated 5. Stop IV fluids and initiate clear diet 6. Possible transfer out of the intensive care unit later today IMPRESSIONS: 1. Shock Exact etiology is unclear at this time. Patient has had multiple hospitalizations recently, so sepsis would be a consideration. Patient has not received antibiotics to this point and appears to have responded to fluid boluses. No fever has been noted, but patient did have a leukocytosis on presentation. Patient had reported some dysuria, so UA and culture will be ordered. Defer to infectious disease on antibiotics unless patient develops fever and then would initiate immediately. Patient is on diuretics and antihypertensives at baseline. Patient may have an element of hypovolemic shock secondary to Lasix in the setting of decreased p.o. intake. Would continue to hold baseline antihypertensives and reinitiate in a stepwise fashion. 2. Chronic hypoxic respiratory failure secondary to COVID-19 Patient did have some subtle signs of obstruction previously, but has required supplemental oxygen since infection with COVID-19. This does appear to be improving. Patient did have some pulmonary hypertension on previous e chocardiograms, so would check a walking oximetry prior to discharge. Clinical suspicion that supplemental oxygen will be required on discharge. 3. Lactic acidosis and elevated troponin Likely secondary to hypotension and hypoxia on presentation. Likely not necessary to pursue intervention at this time. Patient has had a recent echocardiogram, but has had focal wall motion abnormality previously. Patient may benefit from an outpatient cardiac catheterization once renal function is optimized. 4. Chronic combined CHF/secondary pulmonary hyperte nsion/JOSÉ MIGUEL/obesity/coronary artery disease status post CABG/hypertension/hyperlipidemia/diabetes/reported dementia Complicates care, management, recovery and prognosis. Holding beta-bloc ker, Lasix and BLANCA inhibitor secondary to acute condition. These will likely need to be restarted in a stepwise fashion. Okay to continue other medications. Inpatient E&M: 81210 Init Hosp L3
[2020-02-18] MEDS: Insulin Lispro 100 UNIT/ML INSULN.PEN SC ×3 (08:32→15:55)
[2020-02-18 08:35] LABS: Procalcitonin < 0.01 ng/mL (0.00-0.09)
[2020-02-18 08:46] LABS: Bedside Glucose 210 mg/dL (70-110)
[2020-02-18 09:05] LABS: Bacteria 0 SEEN /hpf (None Seen); Mucous, Urine 0 SEEN /hpf (<or=2+); Squamous Epithelial Cells - UA 0 SEEN /hpf (0-5); White Blood Cells 0 SEEN /hpf (0-5)
[2020-02-18 09:13] LABS: Color, Urine Yellow (Yellow); Glucose, Dipstick 1000 mg/dl (Normal); Ketone-Dipstick 15 mg/dl (Negative); Leukocyte Esterase-Dipstick Negative /ul (Negative); Nitrite-Dipstick Negative (Negative); Occult Blood-Urine 10 /ul (Negative); Protein-Dipstick 15 mg/dl (Negative); Specific Gravity, Urine 1.015 (1.002-1.030); Urine Bilirubin Dipstick Negative (Negative); Urine Clarity Clear (Clear); Urine Urobilinogen Normal (Normal)
[2020-02-18 09:23] LABS: Red Blood Cells-Urine 0-5 SEEN /hpf (0-5)
[2020-02-18] MEDS: dexAMETHasone 10 MG/ML Vial 6 MG IV (10:47)
[2020-02-18] MEDS: Clopidogrel Bisulfate 75 MG Tablet PO (10:48)
[2020-02-18] MEDS: Aspirin E.C. 81 MG Tablet PO (10:48)
[2020-02-18] MEDS: Multivitamins,Therapeutic Tablet 1 TABLET PO (10:49)
[2020-02-18] MEDS: buPROPion (XL) 300 MG TABLET.XL PO (10:49)
[2020-02-18] MEDS: Enoxaparin 120 MG/0.8 ML Syringe 110 MG SC ×2 (10:49→21:02)
[2020-02-18] MEDS: buPROPion (SR) 100 MG TABLET.SA PO (10:50)
--- NOTE | 2020-02-18 11:03 | CON.PCM_ITS ---
Problem List (1) COVID-19 Status: Acute Reason for Consult: covid Consulted by: Dr. Quezada History of Present Illness: The patient is a 69 year old M, admitted with covid, again . Now back with hypotension, not feeling well. No fever, no cough or SOB. Admitted, given fluids, dex, briefly on pressors. Now feeling back to normal, no complaints. Full ROS performed and neg except as noted above. - Medical History Past Medical History (Chronic Problems): Chronic Problems (Last Reviewed 02/17/20 @ 18:[address] 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) History of DVT (deep vein thrombosis) (Chronic) Patient was on Xarelto for this, is not presently Nonrheumatic tricuspid (valve) insufficiency (Chronic) Mild (1+) per echo 02/17/2018 Secondary pulmonary hypertension (Chronic) Mild, RVSP 45 mmhg per echo 02/17/2018 Grade II diastolic dysfunction (Chronic) Per echo 02/17/2018 Systolic and diastolic CHF, 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% per echo February 2018 Stented coronary artery (Chronic 03/15/18) JACI of proximal LCX w/3.0 X 38 Promus Syncergy 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) JACI of proximal LCX w/3.0 X 38 Promus Syncergy HLD (hyperlipidemia) (Chronic) HTN (hypertension) (Chronic) DM2 (diabetes mellitus, type 2) (Chronic) Allergies/Adverse Reactions: Allergies hydrochlorothiazide Allergy (Verified 02/17/20 13:33) Unknown Penicillins [PCN] Allergy (Verified 02/17/20 13:33) Swelling pioglitazone [From Actos] Allergy (Verified 02/17/20 13:33) Unknown gemfibrozil Adverse Reaction (Severe, Verified 02/17/20 13:33) caused very high blood glucose oxycodone [From OxyIR] Adverse Reaction (Verified 02/17/20 13:33) Other pravastatin Adverse Reaction (Verified 02/17/20 13:33) Pain in joints Home Medications: Ambulatory Orders Medication Instructions Recorded Aspirin [Aspirin EC] 81 mg PO DAILY 03/15/17 Bupropion HCl [Bupropion HCl ER] 100 mg PO LUNCH 03/15/17 Gabapentin [Neurontin] 300 mg PO TID 03/15/17 Multivitamin [Multiple Vitamins] 1 ea PO DAILY 03/15/17 buPROPion XL [Wellbutrin Xl] 300 mg PO 0800 03/15/17 Quetiapine Fumarate [Seroquel] 25 mg PO BID 01/24/18 metoprolol tartrate 25 mg tablet 12.5 mg PO QHS tab 07/13/18 insulin aspar prot-insulin aspart See Rx Instructions SUBCUT .ac ml 10/05/18 100 unit/mL (70-30) subcutaneous pen nitroglycerin 0.4 mg sublingual 0.4 mg SUBLINGUAL Q5-15M PRN #25 10/05/18 tablet tab icosapent ethyl 1 gram capsule 2 g PO BID #120 cap 08/23/19 donepezil 10 mg tablet 10 mg PO BID tab 09/09/19 duloxetine 30 mg capsule,delayed 30 mg PO BID cap 09/09/19 release sprinkle empagliflozin 25 mg tablet 25 mg PO DAILY 09/09/19 Cholecalciferol (Vitamin D3) 2,000 unit PO DAILY 02/03/20 [Vitamin D3] Clopidogrel Bisulfate [Plavix] 75 mg PO DAILY 02/03/20 Furosemide [Lasix] 20 mg PO DAILY 02/03/20 Isosorbide Mononitrate [Isosorbide 120 mg PO BID 02/03/20 Mononitrate ER] Lisinopril 20 mg PO BID 02/03/20 Rivaroxaban [Xarelto] 10 mg PO DAILY #14 tab 02/14/20 - Social History Tobacco Use: non-smoker Vital Signs Temp Pulse Resp BP Pulse Ox 97.3 F L 63 9 L 150/81 H 98 02/18/20 07:00 02/18/20 07:39 02/18/20 07:00 02/18/20 07:00 02/18/20 07:12 Oxygen Flow Rate (L/min) 2 Oxygen Delivery Method Nasal Cannula Weight: 105.1 kg Body Mass Index (BMI) 35.2 Finger Stick Blood Glucose 272 Laboratory Tests Past 24 Hrs 02/17/20 02/17/20 02/17/20 13:50 13:50 13:50 WBC 11.3 H RBC 3.77 L Hgb 11.3 L Hct 35.1 L MCV 93.1 MCH 30.0 MCHC 32.2 RDW Std Deviation 43.9 RDW Coeff of Smooth 12.9 Plt Count 367 MPV 13.2 H Immature Gran % (Auto) 1.400 H Neut % (Auto) 67.9 Lymph % (Auto) 23.8 [place] % (Auto) 4.6 Eos % (Auto) 1.9 Baso % (Auto) 0.4 Absolute Neuts (auto) 7.7 Absolute Lymphs (auto) 2.69 Nucleated RBC % 0.2 Differential Comment Platelet Estimate Plt Morphology Comment Sodium 141 Potassium 4.8 Chloride 106 Carbon Dioxide 30.0 Anion Gap 5 BUN 63 H Creatinine 1.95 H Estim Creat Clear Calc 34.59 Est GFR (MDRD) Af Amer 44 L Est GFR (MDRD) Non-Af 36 L BUN/Creatinine Ratio 32.3 H Glucose 155 H Lactic Acid 2.3 H* Calcium 9.7 Total Bilirubin 0.40 AST 29 ALT 40 Alkaline Phosphatase 66 Troponin I 0.098 H B-Natriuretic Peptide Total Protein 6.4 Albumin 2.2 L Globulin 4.2 Albumin/Globulin Ratio 0.5 L Procalcitonin Urine Color Urine Clarity Urine pH Ur Specific [place] Urine Protein Urine Glucose (UA) Urine Ketones Urine Occult Blood Urine Nitrite Urine Bilirubin Urine Urobilinogen Ur Leukocyte Esterase Urine RBC Urine WBC Ur Squamous Epith Cells Urine Bacteria Urine Mucus 02/17/20 02/17/20 02/18/20 13:50 18:15 04:45 WBC 13.7 H RBC 3.40 L Hgb 10.0 L Hct 31.5 L MCV 92.6 MCH 29.4 MCHC 31.7 L RDW Std Deviation 43.8 RDW Coeff of Smooth 13.0 Plt Count 298 MPV 13.4 H Immature Gran % (Auto) 1.200 H Neut % (Auto) 89.6 H Lymph % (Auto) 7.6 L [place] % (Auto) 1.3 Eos % (Auto) 0.2 Baso % (Auto) 0.1 Absolute Neuts (auto) 12.2 H Absolute Lymphs (auto) 1.04 Nucleated RBC % 0 Differential Comment SCANNED Platelet Estimate ADEQUATE Plt Morphology Comment CLUMPED Sodium Potassium Chloride Carbon Dioxide Anion Gap BUN Creatinine Estim Creat Clear Calc Est GFR (MDRD) Af Amer Est GFR (MDRD) Non-Af BUN/Creatinine Ratio Glucose Lactic Acid 1.5 Calcium Total Bilirubin AST ALT Alkaline Phosphatase Troponin I B-Natriuretic Peptide 69.0 Total Protein Albumin Globulin Albumin/Globulin Ratio Procalcitonin Urine Color Urine Clarity Urine pH Ur Specific [place] Urine Protein Urine Glucose (UA) Urine Ketones Urine Occult Blood Urine Nitrite Urine Bilirubin Urine Urobilinogen Ur Leukocyte Esterase Urine RBC Urine WBC Ur Squamous Epith Cells Urine Bacteria Urine Mucus 02/18/20 02/18/20 02/18/20 04:45 07:15 08:30 WBC RBC Hgb Hct MCV MCH MCHC RDW Std Deviation RDW Coeff of Smooth Plt Count MPV Immature Gran % (Auto) Neut % (Auto) Lymph % (Auto) [place] % (Auto) Eos % (Auto) Baso % (Auto) Absolute Neuts (auto) Absolute Lymphs (auto) Nucleated RBC % Differential Comment Platelet Estimate Plt Morphology Comment Sodium 140 Potassium 5.5 H Chloride 110 H Carbon Dioxide 25.0 Anion Gap 5 BUN 54 H Creatinine 1.01 Estim Creat Clear Calc 66.78 Est GFR (MDRD) Af Amer 94 Est GFR (MDRD) Non-Af 78 BUN/Creatinine Ratio 53.5 H Glucose 196 H Lactic Acid Calcium 8.2 L Total Bilirubin 0.40 AST 26 ALT 35 Alkaline Phosphatase 61 Troponin I B-Natriuretic Peptide Total Protein 5.6 L Albumin 1.9 L Globulin 3.7 Albumin/Globulin Ratio 0.5 L Procalcitonin < 0.01 Urine Color Yellow Urine Clarity Clear Urine pH 6.0 Ur Specific [place] 1.015 Urine Protein 15 H Urine Glucose (UA) 1000 H Urine Ketones 15 H Urine Occult Blood 10 H Urine Nitrite Negative Urine Bilirubin Negative Urine Urobilinogen Normal Ur Leukocyte Esterase Negative Urine RBC 0-5 SEEN Urine WBC 0 SEEN Ur Squamous Epith Cells 0 SEEN Urine Bacteria 0 SEEN Urine Mucus 0 SEEN - Other Studies Radiology: [] reviewed Other Studies: [] Route of nutrition/ use of supplements: [] Nutritional Intake: [] IV Site: [] Hill Catheter: [] - Physical Exam General: Alert, Cooperative, No apparent distress HEENT: Atraumatic, PERRLA, EOMI Neck: Supple Lungs: Clear to auscultation, Diminished Cardiovascular: Regular rate, Regular Rhythm Abdomen: Soft, Non Tender, Non-Distended Extremities: Edema Skin: No rashes IV Site: Peripheral, without redness Musculoskeletal: No Tenderness to Palpation of Joints or Extremities Neurological: Cranial nerves II-XII grossly intact - Assessment/Plan Antibiotics: [] Assessment/Plan: [] Active and Suspected Problems (Last Reviewed 02/17/20 @ 18:[address] Clarence Castro, DO) COVID-19 (Acute) Mild dehydration (Acute) Acute and chronic respiratory failure with hypoxia (Acute) Debility (Acute) PATRICK (acute kidney injury) (Acute) Pneumonia due to COVID-19 virus (Acute) Hypotension (Acute) Elevated troponin (Acute) Lactic acidosis (Acute) recent covid, presenting with hypotension. No signs of new infection. PATRICK improved. BP much improved, no complaints. PCT was neg. On dex. No fever. Will follow, thank you
[2020-02-18 11:26] LABS: Bedside Glucose 229 mg/dL (70-110)
--- NOTE | 2020-02-18 12:11 | NT.THERAPY_ITS ---
Nutrition Therapy Report - History Nutrition Services has been consulted to:: Manage nutrient details of diet order Current diet / nutrition support order:: cardiac diet - Anthropometric Measurements Height:: 5 ft 8 in Weight:: 105.1 kg Body Mass Index (BMI):: 35.2 - Relevant Labs Relevant Labs:: WBC 13.7 K/mm3 (4.4-11.0) H 02/18/20 04:45 RBC 3.40 M/mm3 (4.6-6.2) L 02/18/20 04:45 Hgb 10.0 g/dL (13.0-16.5) L 02/18/20 04:45 Hct 31.5 % (40-54) L 02/18/20 04:45 MCHC 31.7 g/dL (32-36) L 02/18/20 04:45 MPV 13.4 fl (6.2-12.0) H 02/18/20 04:45 Immature Gran % (Auto) 1.200 % (0.0-0.9) H 02/18/20 04:45 Neut % (Auto) 89.6 % (47-70) H 02/18/20 04:45 Lymph % (Auto) 7.6 % (19-41) L 02/18/20 04:45 Absolute Neuts (auto) 12.2 X10^3/uL (2.0-7.7) H 02/18/20 04:45 Potassium 5.5 mmol/L (3.5-5.1) H 02/18/20 04:45 Chloride 110 mmol/L (98-107) H 02/18/20 04:45 BUN 54 mg/dL (7-18) H 02/18/20 04:45 Creatinine 1.95 mg/dL (0.70-1.30) H 02/17/20 13:50 Est GFR (MDRD) Af Amer 44 mL/min (>60) L 02/17/20 13:50 Est GFR (MDRD) Non-Af 36 mL/min (>60) L 02/17/20 13:50 BUN/Creatinine Ratio 53.5 RATIO (10-20) H 02/18/20 04:45 Glucose 196 mg/dL (74-106) H 02/18/20 04:45 Lactic Acid 2.3 mmol/L (0.4-1.9) H* 02/17/20 13:50 Calcium 8.2 mg/dL (8.5-10.1) L 02/18/20 04:45 Troponin I 0.098 ng/mL (<0.045) H 02/17/20 13:50 Total Protein 5.6 g/dL (6.4-8.2) L 02/18/20 04:45 Albumin 1.9 g/dL (3.2-5.0) L 02/18/20 04:45 Albumin/Globulin Ratio 0.5 RATIO (0.9-2.4) L 02/18/20 04:45 - Assessment Food / Nutrition-Related History:: 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 Currently in isolation d/t COVID-19, unable to reach by phone for interview. Breakfast tray visualized, poor PO intake noted. Poor PO intake during previous admissions noted. Per EMR, pt w/ 9.7#/4% wt loss x 2 weeks. Was 241.4# on 02/02 and CBW 231.7#. Wt loss is significant for malnutrition. - Nutrition Diagnosis Problem / Etiology / Signs & Symptoms (PES):: Pt w/ moderate, acute malnutrition related to inadequate energy intake w/ COVID-19 illness as evidenced by 9.7#/4% wt loss x 2 weeks, estimated PO intake meeting less than 50% of pt's estimated nutritional needs for 2 weeks. Evidence of Malnutrition Exists:: Yes Severe PCM:: Acute Illness - Nutrition Intervention Nutrition Prescription:: [id number] calories, 84-94 g protein/day - Food / Nutrient Delivery Interventions Summary of nutrition intervention:: Will liberalize diet to regular d/t acute malnutrition and provide 240mL Glucerna ONS w/ meals. Nutrition support ordered as / adjusted to:: regular diet, glucerna 240mL w/ meals - MNT Monitoring Further MNT monitoring and evaluation required?: Yes MNT Follow-up in:: 3-5 days
[2020-02-18] MEDS: Cosyntropin 0.25 MG in 0.9% Normal Saline (Pres. free 1 ML 30 MG IV (13:08)
[2020-02-18] MEDS: Gabapentin 300 MG Capsule PO (15:55)
--- NOTE | 2020-02-18 16:15 | CASEMGMT ---
JULIO CM Readmission Note. Previous Admission: 02/12/20-02/14/20 Previous Diagnosis: COVID 19, pneumonia Discharge Date: 02/14/20 Discharge Disposition: Home. It was recommended patient go to SNF on discharge, but declined and had pt go home. [facility] HHS was ordered with SN, PT, OT. Hospice care was discussed with the , but physician felt pt was not Hospice appropriate at time of discharge. Current Admission: 02/17/2020 Diagnosis: Shock, acute hypoxic respiratory failure secondary to COVID-19 The patient presented to the ER with hypoxia and hypotension. Pt has home oxygen and is 4L @ baseline. Per nursing, Pt's PCP ordered a Hospice referral. SW updated to speak with and patient re: Hospice referral that was made. DC PLAN: undetermined. Pricilla LEVIN RN ACM
[2020-02-18 19:46] LABS: Anion Gap 11 (5-15); BUN 60 mg/dL (7-18); BUN/Creat Ratio 67.2 RATIO (10-20); Chloride 107 mmol/L (98-107); Creatinine, Serum 0.89 mg/dL (0.70-1.30); EST Glomerular Filtration Rate 90 mL/min (>60); Est Glom Filt Rate - Afr Amer 108 mL/min (>60); Estimated Creatinine Clearance 75.79 ml/min; Glucose 289 mg/dL (74-106); Potassium 5.3 mmol/L (3.5-5.1); Sodium Level 140 mmol/L (136-145)
[2020-02-18] MEDS: Donepezil HCl 10 MG Tablet PO (21:03)
[2020-02-18] MEDS: DULoxetine Hcl 30 MG Capsule PO (21:03)
[2020-02-18] MEDS: QUEtiapine 25 MG Tablet PO (21:03)
--- NOTE | 2020-02-18 21:38 | CPS ---
[employer] went in and talked to patient about ordered BiPAP for at night. Asked if patient could bring in own machine from home since hospital has limited stock and high demand. Patient said that he will have family bring in machine tomorrow and that O2 at night will be fine for another night. [employer]TER told patient if things change or he starts feeling SOB at night to let RN know so hospital machine can be setup. HAND [employer]AME [employer] K[employer]TER will monitor patient overnight. BiPAP not setup at this time for these reasons.
[2020-02-18 23:05] LABS: Bedside Glucose 300 mg/dL (70-110)
[2020-02-19] VITALS (11 sets, daily range): BP systolic 97–161; BP diastolic 55–94; PULSE 80–128; RESP 16–28; TEMP 35.7–36.6; O2SAT 90–98
[2020-02-19] LABS: Bedside Glucose 285 mg/dL (70-110)
[2020-02-19] MEDS: Lactated Ringers 1,000 ML 100 ML IV ×2 (01:12→11:22)
[2020-02-19 06:13] LABS: Absolute Neutrophil Count 10.8 X10^3/uL (2.0-7.7); Basophil# 0.01 X10^3/uL; Basophil% 0.1 % (0-1); Eosinophil# 0.02 X10^3/uL; Eosinophils% 0.1 % (0-5); Hematocrit 27.5 % (40-54); Hemoglobin 8.5 g/dL (13.0-16.5); Lymphocyte % 16.9 % (19-41); Mean Corp Hgb Conc 30.9 g/dL (32-36); Mean Corpuscular Hgb 29.4 pg (27.0-32.0); Mean Corpuscular Volume 95.2 fL (80-94); Mean Platelet Vol. 13.9 fl (6.2-12.0); Monocyte% 5.6 % (0-10); NRBC Flagged by Analyzer 0 % (0-5); Neutrophil # 10.82 X10^3/uL (2.7-7.7); Neutrophil % 76.3 % (47-70); Platelet Count 335 K/mm3 (150-450); RBC Distribution Width CV 12.8 % (11.6-14.6); RBC Distribution Width SD 43.8 fl (35.1-43.9); Red Blood Count 2.89 M/mm3 (4.6-6.2); White Blood Count 14.2 K/mm3 (4.4-11.0)
[2020-02-19 06:40] LABS: ALB/GLOB Ratio 0.6 RATIO (0.9-2.4); AST(SGOT) 26 U/L (15-37); Alanine Aminotransfer ALT/SGPT 32 U/L (16-61); Albumin, Serum 2.2 g/dL (3.2-5.0); Alkaline Phosphatase 62 U/L (45-117); Anion Gap 16 (5-15); BUN 60 mg/dL (7-18); BUN/Creat Ratio 58.8 RATIO (10-20); Calcium,Total 8.5 mg/dL (8.5-10.1); Chloride 103 mmol/L (98-107); Creatinine, Serum 1.02 mg/dL (0.70-1.30); EST Glomerular Filtration Rate 77 mL/min (>60); Est Glom Filt Rate - Afr Amer 93 mL/min (>60); Estimated Creatinine Clearance 66.13 ml/min; Globulin 3.7 g/dL (2.2-4.2); Glucose 302 mg/dL (74-106); Potassium 5.3 mmol/L (3.5-5.1); Protein, Total 5.9 g/dL (6.4-8.2); Sodium Level 135 mmol/L (136-145)
--- NOTE | 2020-02-19 06:49 | PCM.PN.HOSP ---
Patient Problems: Active and Suspected Problems (Last Reviewed 02/17/20 @ 18:[address] Clarence Castro, DO) COVID-19 (Acute) Mild dehydration (Acute) Acute and chronic respiratory failure with hypoxia (Acute) Debility (Acute) PATRICK (acute kidney injury) (Acute) Pneumonia due to COVID-19 virus (Acute) Hypotension (Acute) Elevated troponin (Acute) Lactic acidosis (Acute) Subjective: Patient overnight with fatigue, malaise, episode of this morning of lightheadedness and dizziness with near syncopal event with positive orthostatic vital signs. Patient then later in the day with onset of coffee-ground emesis and now black tarry stools. Patient remains fatigued, some mild cough and some dyspnea with exertion. He does remain confused and does have some underlying dementia. Outpatient with primary care physician family had been working toward setting up home hospice and today is insistent that he continue to plan for discharge to home with home hospice and that she has a plethora of family members to assist in his care. Patient denies fevers, chills, nausea, emesis, abdominal pain, chest pain. Objective: Physical Examination: General: awake, alert, patient little more confused, oriented to self, place and some recent events but more slow and fatigued this morning than prior, seated upright in the medical surgical Covid unit bed, fatigued, recent near syncopal event. Skin: normal color, turgor, no icterus, cyanosis except occasional staged ecchymoses. HEENT: AT/NC, EOMI, PERRLA, mildly dry MM. Lungs: Diminished, improved effort, moderate decrease BL bases, no rales, ronchi or wheezing. Heart: Regular rate and rhythm; no gallop, rub audible. Abdomen: soft, NTTP, ND, hyperactive BS. Extremities: no cyanosis, clubbing, or edema. Neurological: patient awake, alert, oriented as noted; cognitive function worsened from day prior; pupils equally reactive to light and accomodation; cranial nerves II-XII grossly normal, moving all 4 extremities, no focal deficits, strength worsening, severely global decreased. Psychiatric: affect appears fatigued, ill-appearing, no acute evidence of depressive or anxiety feelings. Vitals/I&O's: Vital Signs Temp Pulse Resp BP Pulse Ox 97.1 F L 80 18 161/94 H 97 02/19/20 05:44 02/19/20 05:44 02/19/20 06:00 02/19/20 05:44 02/19/20 05:44 Oxygen Flow Rate (L/min) 2 Oxygen Delivery Method Nasal Cannula Weight: 227 lb 15.327 oz Body Mass Index (BMI) 35.2 Finger Stick Blood Glucose 272 Intake and Output for Last 24 Hours 02/17/20 02/18/20 02/19/20 23:59 23:59 23:59 Intake Total 3731.92 / 3744.99 2595.37 / 2595.37 1016.67 / 1016.67 Output Total 120 / 120 8455 / 8805 600 / 600 Balance 3611.92 / 3624.99 -5859.63 / -6209.63 416.67 / 416.67 Laboratory Results 02/18/20 07:15: Procalcitonin < 0.01 02/18/20 07:15: Cortisol 3.20 L 02/18/20 08:29: POC Glucose 210 H 02/18/20 08:30: Urine Color Yellow, Urine Clarity Clear, Urine pH 6.0, Ur Specific [place] 1.015, Urine Protein 15 H, Urine Glucose (UA) 1000 H, Urine Ketones 15 H, Urine Occult Blood 10 H, Urine Nitrite Negative, Urine Bilirubin Negative, Urine Urobilinogen Normal, Ur Leukocyte Esterase Negative, Urine RBC 0-5 SEEN, Urine WBC 0 SEEN, Ur Squamous Epith Cells 0 SEEN, Urine Bacteria 0 SEEN, Urine Mucus 0 SEEN 02/18/20 11:06: POC Glucose 229 H 02/18/20 15:53: POC Glucose 285 H 02/18/20 19:18: Sodium 140, Potassium 5.3 H, Chloride 107, Carbon Dioxide 22.0, Anion Gap 11, BUN 60 H, Creatinine 0.89, Estim Creat Clear Calc 75.79, Est GFR (MDRD) Af Amer 108, Est GFR (MDRD) Non-Af 90, BUN/Creatinine Ratio 67.2 H, Glucose 289 H, Calcium 9.0 02/18/20 21:01: POC Glucose 300 H 02/19/20 04:44: WBC 14.2 H, RBC 2.89 L, Hgb 8.5 L, Hct 27.5 L, MCV 95.2 H, MCH 29.4, MCHC 30.9 L, RDW Std Deviation 43.8, RDW Coeff of Smooth 12.8, Plt Count 335, MPV 13.9 H, Immature Gran % (Auto) 1.000 H, Neut % (Auto) 76.3 H, Lymph % (Auto) 16.9 L, [place] % (Auto) 5.6, Eos % (Auto) 0.1, Baso % (Auto) 0.1, Absolute Neuts (auto) 10.8 H, Absolute Lymphs (auto) 2.40, Nucleated RBC % 0 02/19/20 04:44: Sodium 135 L, Potassium 5.3 H, Chloride 103, Carbon Dioxide 16.0 L, Anion Gap 16 H, BUN 60 H, Creatinine 1.02, Estim Creat Clear Calc 66.13, Est GFR (MDRD) Af Amer 93, Est GFR (MDRD) Non-Af 77, BUN/Creatinine Ratio 58.8 H, Glucose 302 H, Calcium 8.5, Total Bilirubin 0.60, AST 26, ALT 32, Alkaline Phosphatase 62, Total Protein 5.9 L, Albumin 2.2 L, Globulin 3.7, Albumin/Globulin Ratio 0.6 L Current Medications Acetaminophen (Acetaminophen 325 Mg Tablet) 650 mg PO Q6H PRN PRN PRN Reason: Pain Score 1-10/Temp > 100.7 F Aspirin (Aspirin E.C. 81 Mg Tablet) 81 mg PO DAILY [facility] Last Admin: 02/18/20 10:48 Dose: 81 mg Documented by: Bupropion HCl (Bupropion (Sr) 100 Mg Tablet.Sa) 100 mg PO LUNCH [facility] Last Admin: 02/18/20 10:50 Dose: 100 mg Documented by: Bupropion HCl (Bupropion (Xl) 300 Mg Tablet.Xl) 300 mg PO DAILY [facility] Last Admin: 02/18/20 10:49 Dose: 300 mg Documented by: Cholecalciferol (Cholecalciferol (Vit D3) 1,000 Unit (25mcg)) 2,000 unit PO DAILY [facility] Last Admin: 02/18/20 10:48 Dose: 2,000 unit Documented by: Clopidogrel Bisulfate (Clopidogrel Bisulfate 75 Mg Tablet) 75 mg PO DAILY [facility] Last Admin: 02/18/20 10:48 Dose: 75 mg Documented by: Dexamethasone Sodium Phosphate (Dexamethasone 10 Mg/Ml Vial) 6 mg IV DAILY [facility] Last Admin: 02/18/20 10:47 Dose: 6 mg Documented by: Dextrose (Dextrose 50%-Water 25 Gm/50 Ml Disp.Syrin) 0 gm IV X1 PRN; Protocol PRN Reason: Hypoglycemia Donepezil HCl (Donepezil Hcl 10 Mg Tablet) 10 mg PO BID [facility] Last Admin: 02/18/20 21:03 Dose: 10 mg Documented by: Duloxetine HCl (Duloxetine Hcl 30 Mg Capsule) 30 mg PO BID [facility] Last Admin: 02/18/20 21:03 Dose: 30 mg Documented by: Enoxaparin Sodium (Enoxaparin 120 Mg/0.8 Ml Syringe) 110 mg SC Q12@1000,2200 [facility] Last Admin: 02/18/20 21:02 Dose: 110 mg Documented by: Gabapentin (Gabapentin 300 Mg Capsule) 300 mg PO TIDCM [facility] Last Admin: 02/18/20 15:55 Dose: 300 mg Documented by: Glucagon (Glucagon 1 Mg/Ml Syringe) 1 mg IM .X1 PRN PRN Reason: Hypoglycemia Lactated Ringer's () 1,000 mls @ 100 mls/hr IV .Q10H [facility] Last Admin: 02/19/20 01:12 Dose: 100 mls/hr Documented by: Sodium Chloride () 250 mls @ 15 mls/hr IV .[id number] PRN PRN Reason: Saline Flush Sodium Chloride () 250 mls @ 15 mls/hr IV .[id number] PRN PRN Reason: Additional IVPB Infusion Insulin Human Lispro (Insulin Lispro 100 Unit/Ml Insuln.Pen) 0 unit SC TIDAC [facility]; Protocol Last Admin: 02/18/20 15:55 Dose: 4 u Documented by: Multivitamins (Multivitamins,Therapeutic Tablet) 1 tablet PO DAILY [facility] Last Admin: 02/18/20 10:49 Dose: 1 tablet Documented by: Ondansetron HCl (Ondansetron 4 Mg/2 Ml Vial) 4 mg IV Q8H PRN PRN PRN Reason: NAUSEA/VOMITING Quetiapine Fumarate (Quetiapine 25 Mg Tablet) 25 mg PO BID [facility] Last Admin: 02/18/20 21:03 Dose: 25 mg Documented by: Sodium Chloride (0.9% Saline Lock 10 Ml Syringe) 10 - 40 ml IV UD PRN PRN Reason: SALINE FLUSH Last Admin: 02/18/20 02:52 Dose: 10 ml Documented by: STROKE Vital Signs/Narrative: Vital Signs Temp Pulse Resp BP Pulse Ox 02/19/20 06:00 18 02/19/20 05:44 97.1 F L 80 16 161/94 H 97 02/19/20 03:29 97 Medical Necessity - Tobacco Use Smoking Status: Never smoker Assessment/Plan All Active Problems (Last Reviewed 02/17/20 @ 18:[address] Clarence Castro, DO) COVID-19 (Acute) Mild dehydration (Acute) Acute and chronic respiratory failure with hypoxia (Acute) Debility (Acute) PATRICK (acute kidney injury) (Acute) Pneumonia due to COVID-19 virus (Acute) Hypotension (Acute) Elevated troponin (Acute) Lactic acidosis (Acute) History of total left knee replacement (Resolved 02/15/18) S/P CABG x 3 (Resolved 03/10/15) History of left heart catheterization (Resolved 11/07/18) Abdominal discomfort (Resolved) Chest pain (Resolved) Hypertensive urgency (Resolved) The patient is a 69 y/o M w/ PMHx: CKD stage III, CAD s/p CABG x 3, HTN, HLD, Diabetes mellitus type II, Obesity, JOSÉ MIGUEL, PVD, Hx VTE, Pulmonary HTN, Chronic combined CHF, Dementia unclear type with unclear behavioral disturbance history, recent COVID-19 pneumonia with complicated hospitalization course and readmissions, recently discharged on 02/14/20 following admission for severe weakness secondary to COVID pneumonia who re-[facility]ed [facility] ED on 02/17/20 secondary to home health aid noted hypotension and hypoxia. 1. Hemorrhagic shock with lactic acidosis secondary to Acute on Chronic Anemia, secondary to Acute Blood Loss Anemia secondary to GI bleed: Patient with no obvious evidence of infection although concern initially for septic shock was a consideration with no antibiotics administered, new onset fevers with judicious hydration, hold on patient's hypertensive regimen and initially IV Decadron with eventual discontinuation and transient usage of norepinephrine prompting transfer to Covid unit. Patient with onset 02/19/2020 near syncope and onset coffee-ground emesis and tarry black stools with hemoglobin decreased down to 8.5 therefore presentation likely more related to a GI bleed as from review of trending 02/13/2020 hemoglobin 13.2 at that time decreased upon recent admission on 02/17/2020 with hemoglobin 11.3 now down to the 8.5. This is the likely etiology for patient's near syncope and orthostatic vital signs. Had initially been attempting to obtain cosyntropin stim test to assess for possible adrenal insufficiency but likely etiology now presenting itself. Family is insistent the patient be discharged to home with hospice therefore will pause on any aggressive treatments including PRBC administration and attempting to arrange transition to hospice. Holding aspirin, Plavix, Xarelto regimen. 2. Acute kidney injury on CKD stage III: Secondary to #1, improving. Admission BUN/Cr 63/1.95, prior baseline creatinine noted to be 1.0-1.1, 02/18/2020 BUN/creatinine 54/1.01--> 02/19/2020 BUN/creatinine 60/1.02, had added back some of patient's hypertensive regimen including BLANCA inhibitor given improvement but given #1 now presenting itself will discontinue patient hypertensive regimen. 3. Chronic hypoxic respiratory failure secondary to recent acute Covid-19 pneumonia: Patient with continued usage of supplemental oxygen, maintain in precautions, infectious disease consulted given presentation initially concerning for possibly septic shock although now noted #1 likely presentation with GI bleed and hypoxia likely related. 4. Indeterminate cardiac enzyme: Admission troponin 0.098, EKG without acute findings, suspect hypotension related, maintain on telemetry monitoring. 11/13/2019 echocardiogram with mildly dilated LV, EF 50 to 55%, stage II diastolic dysfunction, evidence of regional wall motion abnormalities, mildly enlarged LA, trivial TBI, RVSP 29 mmHg. Unfortunately will need to discontinue patient aspirin, Plavix, Xarelto regimen given acute presentation #1. 5. CAD: Status post CABG x3 FLANNERY to LAD, SVG to LCx, SVG to PDA.even now #1 holding aspirin, Plavix, Xarelto. Also holding patient beta-poonam and lisinopril regimens given hypotension recurrence now likely secondary to #1 and was likely suspected to be the initial etiology, not on statin. 7. Hypertension: Patient initially hypotensive upon presentation requiring pressors, BPs had improved with resumption of metoprolol and lisinopril however recurrent hypotension with now evidence GI bleed #1 likely the initial etiology, holding. 8. Hyperlipidemia: Not on regimen, defer to outpatient. 9. Dementia unclear type with unclear behavioral disturbance history: Complicates presentation, maintain on fall precautions, case management consultation for discharge planning although family very adamant about discharging to home once appropriate. Continued low-dose Seroquel and donepezil home regimen. 10. Anxiety and depression: We will continue patient home bupropion, duloxetine regimen. 11. Diabetes mellitus type II with neuropathy: Hold oral home regimen, awaiting family input as if plans for hospice will continue to allow regular versus ADA diet, accu checks w/ ISS, continue gabapentin regimen. 12. JOSÉ MIGUEL: We will maintain on BiPAP nightly. 13. DVT prophylaxis: SCDs, initially transition back to Xarelto regimen, had been on therapeutic Lovenox transiently, given #1, discontinuing. 14. CODE STATUS: Patient's notes that Hospice at home has been set-up and is insisting patient be transitioned. Attempting to relay new changes including now evidence GI bleed. Attempting to also discussion patient with hospice to assure everything needed for his transition is made available. Inpatient E&M: [id number] [facility] L3
[2020-02-19] MEDS: Insulin Lispro 100 UNIT/ML INSULN.PEN SC ×2 (07:13→11:24)
[2020-02-19 07:21] LABS: Bedside Glucose 326 mg/dL (70-110)
--- NOTE | 2020-02-19 08:53 | NURSING ---
pt got himself up out of bed and was found sitting on the toilet with the wright catheter almost pulled out. The wright balloon was deflated and pulled the reset of the way out. bleeding noted. Attempted to return to bed with assist of 2. pt passed out and gently assisted to floor. Pt was able to get back up and walked to bed with the walker and 2 assist with this RN and RN PEDIATRIC
--- NOTE | 2020-02-19 09:05 | NURSING ---
depends placed on pt. Dr Quezada here to assess pt
--- NOTE | 2020-02-19 09:12 | CASEMGMT ---
Addendum entered by Alda Cuevas 02/19/20 11:07: Social Work spoke with Alejandra at [facility]. Alejandra states pt PCP Dr. Reed made referral on Monday and hospice has spoke with pt on phone. Meeting with pt Tiffanie and hospice at noon today. Clinical information faxed to hospice. MAHSA Razo Original Note: Social Work SW received call from pt Tiffanie Zhong. Tiffanie states that pt was discharged on Monday with home health services and readmitted on Monday. Since discharge on Monday Tiffanie has spoke to pt PCP and PCP has made a referral to [facility] and Tiffanie has been in touch with the hospice nurse. At this time Tiffanie is requesting pt be discharged home with hospice services as soon as pt is stable. SW will speak with doctor about discharge plans and will then followup with Tiffanie. Phone call to [facility] and left message requesting return call to discuss pt care. MAHSA Razo
[2020-02-19] MEDS: QUEtiapine 25 MG Tablet PO (10:35)
[2020-02-19] MEDS: Multivitamins,Therapeutic Tablet 1 TABLET PO (10:35)
[2020-02-19] MEDS: Aspirin E.C. 81 MG Tablet PO (10:35)
[2020-02-19] MEDS: Gabapentin 300 MG Capsule PO ×2 (10:35→11:26)
[2020-02-19] MEDS: Clopidogrel Bisulfate 75 MG Tablet PO (10:35)
[2020-02-19] MEDS: Donepezil HCl 10 MG Tablet PO (10:36)
[2020-02-19] MEDS: dexAMETHasone 10 MG/ML Vial 6 MG IV (10:36)
[2020-02-19] MEDS: DULoxetine Hcl 30 MG Capsule PO (10:36)
[2020-02-19] MEDS: buPROPion (XL) 300 MG TABLET.XL PO (10:59)
[2020-02-19] MEDS: Lisinopril 20 MG Tablet PO (10:59)
[2020-02-19] MEDS: buPROPion (SR) 100 MG TABLET.SA PO (11:25)
[2020-02-19 12:21] LABS: Bedside Glucose 355 mg/dL (70-110)
[2020-02-19] MEDS: Ondansetron 4 MG/2 ML Vial IV (12:22)
[2020-02-19] MEDS: Cosyntropin 0.25 MG in 0.9% Normal Saline (Pres. free 1 ML 30 MG IV (12:29)
--- NOTE | 2020-02-19 13:42 | PCM.DC ---
- Discharge Diagnoses Current Active Problems: Current Active and Chronic Problems (Last Reviewed 02/17/20 @ 18:[address] Clarence Castro, DO) 1. Hemorrhagic shock with lactic acidosis secondary to Acute on Chronic Anemia, secondary to Acute Blood Loss Anemia secondary to GI bleed 2. Acute kidney injury on CKD stage III, secondary to #1 3. Chronic hypoxic respiratory failure secondary to recent acute Covid-19 pneumonia 4. Indeterminate cardiac enzyme 5. CAD Status post CABG x3 FLANNERY to LAD, SVG to LCx, SVG to PDA 7. Hypertension 8. Hyperlipidemia 9. Dementia unclear type with unclear behavioral disturbance history 10. Anxiety and depression 11. Diabetes mellitus type II with neuropathy 12. JOSÉ MIGUEL You will use the following diet at home:: Regular Your food should be the consistency of: Regular Your liquids should be the consistency of: Regular/Thin Discharge Activity: - - No restrictions given hospice transition; however, be cautious about falls and aspiration. Call your doctor if you observe: - - Contact hospice if any concerns. Primary focus now is on remaining home and being comfortable to spend his duration of time with his family. Instructions: What Is Hospice?, Starting Hospice, Hospice: The Importance of Managing Pain, Hospice: Understanding and Caring for Dyspnea, Hospice: Understanding and Caring for Delirium, Hospice: As Nears Allergies/Adverse Reactions: Allergies hydrochlorothiazide Allergy (Verified 02/17/20 13:33) Unknown Penicillins [PCN] Allergy (Verified 02/17/20 13:33) Swelling pioglitazone [From Actos] Allergy (Verified 02/17/20 13:33) Unknown gemfibrozil Adverse Reaction (Severe, Verified 02/17/20 13:33) caused very high blood glucose oxycodone [From OxyIR] Adverse Reaction (Verified 02/17/20 13:33) Other pravastatin Adverse Reaction (Verified 02/17/20 13:33) Pain in joints Medications to take at Discharge Bupropion HCl [Bupropion HCl ER] 100 mg PO LUNCH 03/15/17 Gabapentin [Neurontin] 300 mg PO TID 03/15/17 buPROPion XL [Wellbutrin Xl] 300 mg PO 0800 03/15/17 Quetiapine Fumarate [Seroquel] 25 mg PO BID 01/24/18 duloxetine 30 mg capsule,delayed release sprinkle 30 mg PO BID cap 06/01/20 Lorazepam [Ativan] 0.5 mg PO TID PRN 3 Days #20 tablet 02/19/20 Oxycodone [Oxyir] 5 mg PO Q4H PRN PRN 3 Days #20 tablet 02/19/20 The following prescriptions were given: Lorazepam [Ativan] 0.5 mg PO TID PRN 3 Days #20 tablet PRN Reason: agitation, agitation Transmission Status: Sent to [facility] Oxycodone [Oxyir] 5 mg PO Q4H PRN PRN 3 Days #20 tablet PRN Reason: severe pain Transmission Status: Sent to [facility] Primary Care Physician: Juve Reed MD [Primary Care Provider] - Please follow up with your Primary Care Physician in: Continue care now with hospice. Test Results: Test results from this visit will be discussed in further detail at your follow-up appointment, if applicable. Please Follow Up With: Hospice Care When: Continue care with hospice. Proposed Discharge Date: 02/19/20
--- NOTE | 2020-02-19 13:42 | PCM.DC.SUM ---
Discharge Date and Diagnosis - Problem List Patient Problems: Active and Suspected Problems (Last Reviewed 02/17/20 @ 18:[address] Clarence Castro DO) COVID-19 (Acute) Mild dehydration (Acute) Acute and chronic respiratory failure with hypoxia (Acute) Debility (Acute) PATRICK (acute kidney injury) (Acute) Pneumonia due to COVID-19 virus (Acute) Hypotension (Acute) Elevated troponin (Acute) Lactic acidosis (Acute) Date of Admission: 02/17/20 Date of Discharge: 02/19/20 - Primary Discharge Diagnosis Acute Problems: Active Problems (Last Reviewed 02/17/20 @ 18:[address] Clarence Castro DO) 1. Hemorrhagic shock with lactic acidosis secondary to Acute on Chronic Anemia, secondary to Acute Blood Loss Anemia secondary to GI bleed 2. Acute kidney injury on CKD stage III, secondary to #1 3. Chronic hypoxic respiratory failure secondary to recent acute Covid-19 pneumonia 4. Indeterminate cardiac enzyme 5. CAD Status post CABG x3 FLANNERY to LAD, SVG to LCx, SVG to PDA 7. Hypertension 8. Hyperlipidemia 9. Dementia unclear type with unclear behavioral disturbance history 10. Anxiety and depression 11. Diabetes mellitus type II with neuropathy 12. JOSÉ MIGUEL - Secondary Discharge Diagnosis Chronic Problems: Chronic Problems (Last Reviewed 02/17/20 @ 18:[address] 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) History of DVT (deep vein thrombosis) (Chronic) Patient was on Xarelto for this, is not presently Nonrheumatic tricuspid (valve) insufficiency (Chronic) Mild (1+) per echo 02/17/2018 Secondary pulmonary hypertension (Chronic) Mild, RVSP 45 mmhg per echo 02/17/2018 Grade II diastolic dysfunction (Chronic) Per echo 02/17/2018 Systolic and diastolic CHF, 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% per echo February 2018 Stented coronary artery (Chronic 03/15/18) JACI of proximal LCX w/3.0 X 38 [employer]gy Atherosclerotic heart disease of [place] coronary artery without angina pectoris (Chronic 03/15/18) JACI of proximal LCX w/3.0 X 38 [employer] HLD (hyperlipidemia) (Chronic) HTN (hypertension) (Chronic) DM2 (diabetes mellitus, type 2) (Chronic) Hospital Course and Treatment Operations: None Procedures: EKG Summary of Care Provided: The patient is a 69 y/o M w/ PMHx: CKD stage III, CAD s/p CABG x 3, HTN, HLD, Diabetes mellitus type II, Obesity, JOSÉ MIGUEL, PVD, Hx VTE, Pulmonary HTN, Chronic combined CHF, Dementia unclear type with unclear behavioral disturbance history, recent COVID-19 pneumonia with complicated hospitalization course and readmissions, recently discharged on 02/14/20 following admission for severe weakness secondary to COVID pneumonia who re-presented to the [facility] ED on 02/17/20 secondary to home health aid noted hypotension and hypoxia. Patient with no obvious evidence of infection although concern initially for septic shock was a consideration with no antibiotics administered, new onset fevers with judicious hydration, hold on patient's hypertensive regimen and initially IV Decadron with eventual discontinuation and transient usage of norepinephrine prompting transfer to Covid unit. Patient with onset 02/19/2020 near syncope and onset coffee-ground emesis and tarry black stools with hemoglobin decreased down to 8.5 therefore presentation likely more related to a GI bleed as from review of trending 02/13/2020 hemoglobin 13.2 at that time decreased upon recent admission on 02/17/2020 with hemoglobin 11.3 now down to the 8.5. This is the likely etiology for patient's near syncope and orthostatic vital signs. Had initially been attempting to obtain cosyntropin stim test to assess for possible adrenal insufficiency but likely etiology now presenting itself. Family is insistent the patient be discharged to home with hospice therefore will pause on any aggressive treatments including PRBC administration and attempting to arrange transition to hospice. Held aspirin, Plavix, Xarelto regimen. Patient with acute kidney injury on CKD stage III, secondary to #1, admission BUN/Cr 63/1.95, prior baseline creatinine noted to be 1.0-1.1, 02/18/2020 BUN/creatinine 54/1.01--> 02/19/2020 BUN/creatinine 60/1.02, had added back some of patient's hypertensive regimen including BLANCA inhibitor given improvement but given #1 now presenting itself will discontinue patient hypertensive regimen. Patient clinically worsening status and deterioration over the last several weeks patient's was amenable and desired him to be discharged to home with home hospice. Discussed patient's recent updated changes including evidence GI bleed likely etiology for current hypotension and previous hypotension and patient understands what difficulties at home she may faced with this but insists and agrees to continuing this plan of care. Hospice services updated and initiating hospice home transition. Patient Problems: Active and Suspected Problems (Last Reviewed 02/17/20 @ 18:[address] Clarence Castro, DO) COVID-19 (Acute) Mild dehydration (Acute) Acute and chronic respiratory failure with hypoxia (Acute) Debility (Acute) PATRICK (acute kidney injury) (Acute) Pneumonia due to COVID-19 virus (Acute) Hypotension (Acute) Elevated troponin (Acute) Lactic acidosis (Acute) - Physical Exam Vitals/I&O's: Vital Signs Temp Pulse Resp BP Pulse Ox 96.3 F L 104 H 28 H 115/58 L 90 02/19/20 08:56 02/19/20 10:41 02/19/20 08:56 02/19/20 10:41 02/19/20 08:56 Oxygen Flow Rate (L/min) 2 Oxygen Delivery Method Nasal Cannula Weight: 227 lb 15.327 oz Body Mass Index (BMI) 35.2 Finger Stick Blood Glucose 272 Orthostatic Vital Signs Start: 02/19/20 09:18 Freq: q24h Status: Active Protocol: Activity Type Activity Date Activity User E-Sign Co-Sign Detail Recorded Client Recorded Date Recorded By Document 02/19/20 10:41 ROBERT [id number] 02/19/20 10:55 ROBERT 02/19/20 10:41 Orthostatic Vitals Standing -Blood Pressure (90/60-120/80 mm Hg) 97/73 -Extremity Use Left Arm -Pulse Rate (60-100 beats/min) 104 H Sitting -Blood Pressure (90/60-120/80 mm Hg) 119/61 -Extremity Use Left Arm -Pulse Rate (60-100 beats/min) 128 H Lying -Blood Pressure (90/60-120/80 mm Hg) 115/58 L -Extremity Use Left Arm -Pulse Rate (60-100 beats/min) 104 H Intake and Output for Last 24 Hours 02/17/20 02/18/20 02/19/20 23:59 23:59 23:59 Intake Total 3731.92 / 3744.99 2595.37 / 2595.37 2137.67 / 2137.67 Output Total 120 / 120 8455 / 8805 3800 / 3800 Balance 3611.92 / 3624.99 -5859.63 / -6209.63 -1662.33 / -1662.33 Microbiology Past 72 Hours 02/18/20 08:30 Urine Catheter - Hill Urine Culture - Preliminary Culture exhibits no growth. Laboratory Results 02/18/20 15:53: POC Glucose 285 H 02/18/20 19:18: Sodium 140, Potassium 5.3 H, Chloride 107, Carbon Dioxide 22.0, Anion Gap 11, BUN 60 H, Creatinine 0.89, Estim Creat Clear Calc 75.79, Est GFR (MDRD) Af Amer 108, Est GFR (MDRD) Non-Af 90, BUN/Creatinine Ratio 67.2 H, Glucose 289 H, Calcium 9.0 02/18/20 21:01: POC Glucose 300 H 02/19/20 04:44: WBC 14.2 H, RBC 2.89 L, Hgb 8.5 L, Hct 27.5 L, MCV 95.2 H, MCH 29.4, MCHC 30.9 L, RDW Std Deviation 43.8, RDW Coeff of Smooth 12.8, Plt Count 335, MPV 13.9 H, Immature Gran % (Auto) 1.000 H, Neut % (Auto) 76.3 H, Lymph % (Auto) 16.9 L, Grainger % (Auto) 5.6, Eos % (Auto) 0.1, Baso % (Auto) 0.1, Absolute Neuts (auto) 10.8 H, Absolute Lymphs (auto) 2.40, Nucleated RBC % 0 02/19/20 04:44: Sodium 135 L, Potassium 5.3 H, Chloride 103, Carbon Dioxide 16.0 L, Anion Gap 16 H, BUN 60 H, Creatinine 1.02, Estim Creat Clear Calc 66.13, Est GFR (MDRD) Af Amer 93, Est GFR (MDRD) Non-Af 77, BUN/Creatinine Ratio 58.8 H, Glucose 302 H, Calcium 8.5, Total Bilirubin 0.60, AST 26, ALT 32, Alkaline Phosphatase 62, Total Protein 5.9 L, Albumin 2.2 L, Globulin 3.7, Albumin/Globulin Ratio 0.6 L 02/19/20 07:08: POC Glucose 326 H 02/19/20 11:22: POC Glucose 355 H 02/19/20 12:20: Cortisol 47.70 H Current Medications Acetaminophen (Acetaminophen 325 Mg Tablet) 650 mg PO Q6H PRN PRN PRN Reason: Pain Score 1-10/Temp > 100.7 F Bupropion HCl (Bupropion (Sr) 100 Mg Tablet.Sa) 100 mg PO LUNCH [facility] Last Admin: 02/19/20 11:25 Dose: 100 mg Documented by: Bupropion HCl (Bupropion (Xl) 300 Mg Tablet.Xl) 300 mg PO DAILY [facility] Last Admin: 02/19/20 10:59 Dose: 300 mg Documented by: Cholecalciferol (Cholecalciferol (Vit D3) 1,000 Unit (25mcg)) 2,000 unit PO DAILY [facility] Last Admin: 02/19/20 10:36 Dose: 2,000 unit Documented by: Dexamethasone Sodium Phosphate (Dexamethasone 10 Mg/Ml Vial) 6 mg IV DAILY [facility] Last Admin: 02/19/20 10:36 Dose: 6 mg Documented by: Dextrose (Dextrose 50%-Water 25 Gm/50 Ml Disp.Syrin) 0 gm IV X1 PRN; Protocol PRN Reason: Hypoglycemia Donepezil HCl (Donepezil Hcl 10 Mg Tablet) 10 mg PO BID [facility] Last Admin: 02/19/20 10:36 Dose: 10 mg Documented by: Duloxetine HCl (Duloxetine Hcl 30 Mg Capsule) 30 mg PO BID [facility] Last Admin: 02/19/20 10:36 Dose: 30 mg Documented by: Gabapentin (Gabapentin 300 Mg Capsule) 300 mg PO TIDCM [facility] Last Admin: 02/19/20 11:26 Dose: 300 mg Documented by: Glucagon (Glucagon 1 Mg/Ml Syringe) 1 mg IM .X1 PRN PRN Reason: Hypoglycemia Lactated Ringer's () 1,000 mls @ 100 mls/hr IV .Q10H [facility] Last Admin: 02/19/20 11:22 Dose: 100 mls/hr Documented by: Sodium Chloride () 250 mls @ 15 mls/hr IV .[id number] PRN PRN Reason: Saline Flush Sodium Chloride () 250 mls @ 15 mls/hr IV .[id number] PRN PRN Reason: Additional IVPB Infusion Insulin Human Lispro (Insulin Lispro 100 Unit/Ml Insuln.Pen) 0 unit SC TIDAC [facility]; Protocol Last Admin: 02/19/20 11:24 Dose: 6 units Documented by: Multivitamins (Multivitamins,Therapeutic Tablet) 1 tablet PO DAILY [facility] Last Admin: 02/19/20 10:35 Dose: 1 tablet Documented by: Ondansetron HCl (Ondansetron 4 Mg/2 Ml Vial) 4 mg IV Q8H PRN PRN PRN Reason: NAUSEA/VOMITING Last Admin: 02/19/20 12:22 Dose: 4 mg Documented by: Quetiapine Fumarate (Quetiapine 25 Mg Tablet) 25 mg PO BID [facility] Last Admin: 02/19/20 10:35 Dose: 25 mg Documented by: Sodium Chloride (0.9% Saline Lock 10 Ml Syringe) 10 - 40 ml IV UD PRN PRN Reason: SALINE FLUSH Last Admin: 02/18/20 02:52 Dose: 10 ml Documented by: Home Medications: Medications to take at Discharge Aspirin [Aspirin EC] 81 mg PO DAILY 03/15/17 Bupropion HCl [Bupropion HCl ER] 100 mg PO LUNCH 03/15/17 Gabapentin [Neurontin] 300 mg PO TID 03/15/17 Multivitamin [Multiple Vitamins] 1 ea PO DAILY 03/15/17 buPROPion XL [Wellbutrin Xl] 300 mg PO 0800 03/15/17 Quetiapine Fumarate [Seroquel] 25 mg PO BID 01/24/18 metoprolol tartrate 25 mg tablet 12.5 mg PO QHS tab 07/13/18 insulin aspar prot-insulin aspart 100 unit/mL (70-30) subcutaneous pen See Rx Instructions SUBCUT .ac ml 10/05/18 nitroglycerin 0.4 mg sublingual tablet 0.4 mg SUBLINGUAL Q5-15M PRN #25 tab 10/05/18 icosapent ethyl 1 gram capsule 2 g PO BID #120 cap 08/23/19 donepezil 10 mg tablet 10 mg PO BID tab 09/09/19 duloxetine 30 mg capsule,delayed release sprinkle 30 mg PO BID cap 09/09/19 empagliflozin 25 mg tablet 25 mg PO DAILY 09/09/19 Cholecalciferol (Vitamin D3) [Vitamin D3] 2,000 unit PO DAILY 02/03/20 Clopidogrel Bisulfate [Plavix] 75 mg PO DAILY 02/03/20 Furosemide [Lasix] 20 mg PO DAILY 02/03/20 Isosorbide Mononitrate [Isosorbide Mononitrate ER] 120 mg PO BID 02/03/20 Lisinopril 20 mg PO BID 02/03/20 Rivaroxaban [Xarelto] 10 mg PO DAILY #14 tab 02/14/20 Primary Care Physician: Juve Reed MD [Primary Care Provider] - Disposition: Home with Hospice Minutes spent on discharge:: 35 Patient Condition:: Guarded Medical Necessity - Tobacco Use Smoking Status: Never smoker Meaningful Use Info Meaningful Use Diagnoses (Choose all that apply): None applicable Inpatient E&M: [id number] [facility]
--- NOTE | 2020-02-19 13:55 | PN_ITS ---
Patient Problems: Active and Suspected Problems (Last Reviewed 02/17/20 @ 18:[address] Clarence Castro, DO) COVID-19 (Acute) Mild dehydration (Acute) Acute and chronic respiratory failure with hypoxia (Acute) Debility (Acute) PATRICK (acute kidney injury) (Acute) Pneumonia due to COVID-19 virus (Acute) Hypotension (Acute) Elevated troponin (Acute) Lactic acidosis (Acute) Subjective: Called emergently to the patient's room at approximately 12 PM secondary to hematemesis. Patient had also had melena earlier in the day. Patient was c omplaining of abdominal pain and nausea. Patient had been given Zofran 20 minutes prior to my arrival. Patient was not requiring significant amounts of supplemental oxygen. Per social work, patient's PCP had arranged for hospice as an outpatient prior to readmission. is asking for patient to be transferred home with hospice services, but it is unclear if she understands the new complication that has developed. I did not personally speak with the on the events that occurred today. - Physical Exam Vitals/I&O's: Vital Signs Temp Pulse Resp BP Pulse Ox 35.7 C L 104 H 28 H 115/58 L 90 02/19/20 08:56 02/19/20 10:41 02/19/20 08:56 02/19/20 10:41 02/19/20 08:56 Oxygen Flow Rate (L/min) 2 Oxygen Delivery Method Nasal Cannula Weight: 103.4 kg Body Mass Index (BMI) 35.2 Finger Stick Blood Glucose 272 Orthostatic Vital Signs Start: 02/19/20 09:18 Freq: q24h Status: Active Protocol: Activity Type Activity Date Activity User E-Sign Co-Sign Detail Recorded Client Recorded Date Recorded By Document 02/19/20 10:41 ROBERT [id number] 02/19/20 10:55 ROBERT 02/19/20 10:41 Orthostatic Vitals Standing -Blood Pressure (90/60-120/80) 97/73 -Extremity Use Left Arm -Pulse Rate (60-100) 104 H Sitting -Blood Pressure (90/60-120/80) 119/61 -Extremity Use Left Arm -Pulse Rate (60-100) 128 H Lying -Blood Pressure (90/60-120/80) 115/58 L -Extremity Use Left Arm -Pulse Rate (60-100) 104 H Intake and Output for Last 24 Hours 02/17/20 02/18/20 02/19/20 23:59 23:59 23:59 Intake Total 3731.92 / 3744.99 2595.37 / 2595.37 2137.67 / 2137.67 Output Total 120 / 120 8455 / 8805 3800 / 3800 Balance 3611.92 / 3624.99 -5859.63 / -6209.63 -1662.33 / -1662.33 General: Alert, Cooperative, - - Mild to moderate distress. Morbidly obese HEENT: Atraumatic, PERRLA, EOMI, Normocephalic, - - No scleral icterus or injection noted Oral: No Gingival or Mucosal Lesions/ Ulcerations, Dry Mucosa Neck: Supple, No JVD, No Nodes, Trachea Midline Lungs: No rhonchi, No wheeze, No rales, Diminished, - - Symmetric expansion. Cardiovascular: Normal S1, Normal S2, No murmurs, No rub noted, No Gallop, Tachycardic Abdomen: Soft, Hyperactive Bowel Sounds, Distended, Obese, Tender - Epigastric palpation Extremities: No clubbing, No cyanosis, Edema Skin: - - No change from previous Musculoskeletal: No Tenderness to Palpation of Joints or Extremities Lymphatic: No Cervical, Supraclavicular, or Inguinal Adenopathy Neurological: Cranial nerves II-XII grossly intact, Neuro grossly intact, Motor Exam 5/5 strength throughout Psych/Mental Status: Alert and oriented to time, place, person, mood and affect Microbiology Past 72 Hours 02/18/20 08:30 Urine Catheter - Hill Urine Culture - Preliminary Culture exhibits no growth. Laboratory Results 02/18/20 15:53: POC Glucose 285 H 02/18/20 19:18: Sodium 140, Potassium 5.3 H, Chloride 107, Carbon Dioxide 22.0, Anion Gap 11, BUN 60 H, Creatinine 0.89, Estim Creat Clear Calc 75.79, Est GFR (MDRD) Af Amer 108, Est GFR (MDRD) Non-Af 90, BUN/Creatinine Ratio 67.2 H, Glucose 289 H, Calcium 9.0 02/18/20 21:01: POC Glucose 300 H 02/19/20 04:44: WBC 14.2 H, RBC 2.89 L, Hgb 8.5 L, Hct 27.5 L, MCV 95.2 H, MCH 29.4, MCHC 30.9 L, RDW Std Deviation 43.8, RDW Coeff of Smooth 12.8, Plt Count 335, MPV 13.9 H, Immature Gran % (Auto) 1.000 H, Neut % (Auto) 76.3 H, Lymph % (Auto) 16.9 L, Green % (Auto) 5.6, Eos % (Auto) 0.1, Baso % (Auto) 0.1, Absolute Neuts (auto) 10.8 H, Absolute Lymphs (auto) 2.40, Nucleated RBC % 0 02/19/20 04:44: Sodium 135 L, Potassium 5.3 H, Chloride 103, Carbon Dioxide 16.0 L, Anion Gap 16 H, BUN 60 H, Creatinine 1.02, Estim Creat Clear Calc 66.13, Est GFR (MDRD) Af Amer 93, Est GFR (MDRD) Non-Af 77, BUN/Creatinine Ratio 58.8 H, Glucose 302 H, Calcium 8.5, Total Bilirubin 0.60, AST 26, ALT 32, Alkaline Phosphatase 62, Total Protein 5.9 L, Albumin 2.2 L, Globulin 3.7, Albumin/Globulin Ratio 0.6 L 02/19/20 07:08: POC Glucose 326 H 02/19/20 11:22: POC Glucose 355 H 02/19/20 12:20: Cortisol 47.70 H 02/19/20 13:40: Hgb Pending, Hct Pending Current Medications Acetaminophen (Acetaminophen 325 Mg Tablet) 650 mg PO Q6H PRN PRN PRN Reason: Pain Score 1-10/Temp > 100.7 F Bupropion HCl (Bupropion (Sr) 100 Mg Tablet.Sa) 100 mg PO LUNCH [facility] Last Admin: 02/19/20 11:25 Dose: 100 mg Documented by: Bupropion HCl (Bupropion (Xl) 300 Mg Tablet.Xl) 300 mg PO DAILY [facility] Last Admin: 02/19/20 10:59 Dose: 300 mg Documented by: Cholecalciferol (Cholecalciferol (Vit D3) 1,000 Unit (25mcg)) 2,000 unit PO DAILY [facility] Last Admin: 02/19/20 10:36 Dose: 2,000 unit Documented by: Dexamethasone Sodium Phosphate (Dexamethasone 10 Mg/Ml Vial) 6 mg IV DAILY [facility] Last Admin: 02/19/20 10:36 Dose: 6 mg Documented by: Dextrose (Dextrose 50%-Water 25 Gm/50 Ml Disp.Syrin) 0 gm IV X1 PRN; Protocol PRN Reason: Hypoglycemia Donepezil HCl (Donepezil Hcl 10 Mg Tablet) 10 mg PO BID [facility] Last Admin: 02/19/20 10:36 Dose: 10 mg Documented by: Duloxetine HCl (Duloxetine Hcl 30 Mg Capsule) 30 mg PO BID [facility] Last Admin: 02/19/20 10:36 Dose: 30 mg Documented by: Gabapentin (Gabapentin 300 Mg Capsule) 300 mg PO TIDCM [facility] Last Admin: 02/19/20 11:26 Dose: 300 mg Documented by: Glucagon (Glucagon 1 Mg/Ml Syringe) 1 mg IM .X1 PRN PRN Reason: Hypoglycemia Lactated Ringer's () 1,000 mls @ 100 mls/hr IV .Q10H [facility] Last Admin: 02/19/20 11:22 Dose: 100 mls/hr Documented by: Sodium Chloride () 250 mls @ 15 mls/hr IV .[id number] PRN PRN Reason: Saline Flush Sodium Chloride () 250 mls @ 15 mls/hr IV .[id number] PRN PRN Reason: Additional IVPB Infusion Insulin Human Lispro (Insulin Lispro 100 Unit/Ml Insuln.Pen) 0 unit SC TIDAC [facility]; Protocol Last Admin: 02/19/20 11:24 Dose: 6 units Documented by: Multivitamins (Multivitamins,Therapeutic Tablet) 1 tablet PO DAILY [facility] Last Admin: 02/19/20 10:35 Dose: 1 tablet Documented by: Ondansetron HCl (Ondansetron 4 Mg/2 Ml Vial) 4 mg IV Q8H PRN PRN PRN Reason: NAUSEA/VOMITING Last Admin: 02/19/20 12:22 Dose: 4 mg Documented by: Quetiapine Fumarate (Quetiapine 25 Mg Tablet) 25 mg PO BID [facility] Last Admin: 02/19/20 10:35 Dose: 25 mg Documented by: Sodium Chloride (0.9% Saline Lock 10 Ml Syringe) 10 - 40 ml IV UD PRN PRN Reason: SALINE FLUSH Last Admin: 02/18/20 02:52 Dose: 10 ml Documented by: Medical Necessity - Tobacco Use Smoking Status: Never smoker Assessment/Plan All Active Problems (Last Reviewed 02/17/20 @ 18:[address] Clarence Castro, DO) COVID-19 (Acute) Mild dehydration (Acute) Acute and chronic respiratory failure with hypoxia (Acute) Debility (Acute) PATRICK (acute kidney injury) (Acute) Pneumonia due to COVID-19 virus (Acute) Hypotension (Acute) Elevated troponin (Acute) Lactic acidosis (Acute) History of total left knee replacement (Resolved 02/15/18) S/P CABG x 3 (Resolved 03/10/15) History of left heart catheterization (Resolved 11/07/18) Abdominal discomfort (Resolved) Chest pain (Resolved) Hypertensive urgency (Resolved) RECOMMENDATIONS: 1. Obtain stat H&H 2. Communicate with hospice and family about new developments 3. Continue to hold Lasix, lisinopril and Lopressor 4. Wean oxygen as tolerated 5. Await decision on goals of therapy, but may require surgery evaluation IMPRESSIONS: 1. Shock Exact etiology is unclear at this time. Patient has had multiple hospitalizations recently, so sepsis would be a consideration. Patient has not received antibiotics to this point and appears to have responded to fluid boluses. No fever has been noted, but patient did have a leukocytosis on presentation. With the development of hematemesis and melena overnight, GI bleed with hypovolemic shock would be a consideration. Patient is currently undergoing a cortisol stress test, but GI bleed would be a possibility. Patient was on steroids secondary to COVID-19 and reportedly has had a GI ulcer in the past. Staff is communicating with about goals of therapy and hospice. If choose to be aggressive, evaluation by surgery would be appropriate. Obtain stat H&H. 2. Chronic hypoxic respiratory failure secondary to COVID-19 Patient did have some subtle signs of obstruction previously, but has required supplemental oxygen since infection with COVID-19. This does appear to be improving. Patient's respiratory status appears to be relatively controlled at this time. 3. Lactic acidosis and elevated troponin Likely secondary to hypotension and hypoxia on presentation. Likely not necessary to pursue intervention at this time. Patient has had a recent echocardiogram, but has had focal wall motion abnormality previously. Given goals of therapy, work-up is likely not indicated 4. Chronic combined CHF/secondary pulmonary hypertension/JOSÉ MIGUEL/obesity/coronary artery disease status post CABG/hypertension/hyperlipidemia/diabetes/reported dementia Complicates care, management, recovery and prognosis. Holding beta- poonam, Lasix and BLANCA inhibitor secondary to acute condition. These will likely need to be restarted in a stepwise fashion. Okay to continue other medications. Inpatient E&M: [id number] [facility] L[facility]
[2020-02-19 13:58] LABS: Hematocrit 27.3 % (40-54); Hemoglobin 8.3 g/dL (13.0-16.5)
--- NOTE | 2020-02-19 14:48 | CASEMGMT ---
Social Work SW spoke with physician and informed family is requesting to take pt home with hospice. Dr. Quezada spoke with pt and confirmed this and discharge planned for today, home with hospice services. Discharge instructions and DNR form faxed to [facility] hospice. Phone call to Alejandra at [facility] and updated that pt is discharging today and that transportation has been set up with [facility] for 4:30 cot transport home. Phone call to pt Tiffanie and updated on the time of discharge. Plan: Home with [facility] Services MAHSA Razo
== END 2020-02-19 17:50 | disposition hospice, home (50) | DRG 377 ==
LOC: ED 17:00 → ICU 20:00 → MS2 02-19 09:59
PROVIDERS: Internal Medicine Critical Care Medicine; Emergency Provider Emergency Medicine; PCP Family Medicine; Visit Provider Family Medicine
DX: K92.2 Gastrointestinal hemorrhage, unspecified (principal); R57.1 Hypovolemic shock; J96.21 Acute and chronic respiratory failure with hypoxia; J12.89 Other viral pneumonia; U07.1 COVID-19; R57.8 Other shock; E87.2 Acidosis; D62 Acute posthemorrhagic anemia; N17.9 Acute kidney failure, unspecified; I13.0 Hypertensive heart and chronic kidney disease with heart failure and stage 1 through stage 4 chronic kidney disease, or unspecified chronic kidney disease; F03.91 Unspecified dementia, unspecified severity, with behavioral disturbance; I50.42 Chronic combined systolic (congestive) and diastolic (congestive) heart failure; E44.0 Moderate protein-calorie malnutrition; K92.1 Melena; E11.22 Type 2 diabetes mellitus with diabetic chronic kidney disease; N18.30 Chronic kidney disease, stage 3 unspecified; I25.10 Atherosclerotic heart disease of native coronary artery without angina pectoris; Z95.1 Presence of aortocoronary bypass graft; E11.40 Type 2 diabetes mellitus with diabetic neuropathy, unspecified; E78.5 Hyperlipidemia, unspecified; F32.9 Major depressive disorder, single episode, unspecified; F41.9 Anxiety disorder, unspecified; G47.33 Obstructive sleep apnea (adult) (pediatric); E86.0 Dehydration; R53.81 Other malaise; E11.51 Type 2 diabetes mellitus with diabetic peripheral angiopathy without gangrene; Z79.4 Long term (current) use of insulin; Z79.02 Long term (current) use of antithrombotics/antiplatelets; Z79.899 Other long term (current) drug therapy; Z68.35 Body mass index [BMI] 35.0-35.9, adult
CPT/HCPCS: 36415; 51702; 71045; 80048; 80053; 81001; 82533; 82962; 83605; 83880; 84145; 84484; 85014; 85018; 85025; 87040; 87086; 93005; 93970; 97162; 97166; 99285; J7030; J7050; J7120; A4216; J0834; J2405; J3490